=== PATIENT | female | born 1950 | race Caucasian/White ===

== ENCOUNTER 2022-07-10 01:43 | Outpatient (CLI) | payer MEDICARE, SELFPAY ==
[2022-07-10 09:17] LABS: Abs Immature Grans 0.05 10^3/uL (0.0-0.06); Absolute Eosinophil Count 0.23 10^3/uL (0.0-0.7); Absolute Lymphocyte Count 1.05 10^3/uL (1.2-3.4); Absolute Monocyte Count 0.96 10^3/uL (0.1-0.8); Basophils % 0.9; HCT 42.7 % (36.0-46.0); HGB 11.9 g/dL (11.2-15.7); Immature Grans % 0.4; Lymphocytes % 9.2; MCH 21.3 pg (27.0-33.0); MCHC 27.9 % (32.0-36.0); MCV 77 fL (80-95); MPV 8.4 fL (8.0-11.0); Monocytes % 8.4; Neutrophils % 79.1; Platelet Count 286 10^3/uL (130-400); RBC 5.58 10^6/uL (3.93-5.22); RDW 18.6 % (11.7-14.6); RDW-SD 49.9 fL
[2022-07-10 09:18] LABS: Absolute Neutrophil Count 9.02 10^3/uL (1.2-6.7)
[2022-07-10 09:36] LABS: Anisocytosis 2+; Diff Comment RBC Morph Reviewed; Hypochromasia 2+; Microcytosis 1+; Polychromasia Present
[2022-07-10 09:50] LABS: ALT 17 U/L (14-59); AST 21 U/L (15-37); Albumin 3.6 g/dL (3.4-5.0); Alkaline Phosphatase 70 U/L (46-116); Anion Gap 8.8 mmol/L (3-11); BUN 19 mg/dL (7-18); Bilirubin, Total 0.5 mg/dL (0.2-1.0); CO2 27.2 mmol/L (21.0-32.0); Calcium 9.6 mg/dL (8.5-10.1); Chloride 101 mmol/L (98-107); Estimated GFR 60.23 (mL/min/1.73m2); FREE T4 1.44 ng/dL (0.76-1.46); Glucose 98 mg/dL (74-106); Potassium 4.4 mmol/L (3.5-5.1); Sodium 137 mmol/L (136-145); TSH 1.55 uIU/mL (0.36-3.74); Total Protein 7.6 g/dL (6.4-8.2)
== END 2022-07-10 01:44 | disposition home or self-care (01) ==
LOC: LBO 01:43
PROVIDERS: Visit Provider Internal Medicine Hematology & Oncology
DX: Z79.899 Other long term (current) drug therapy (principal)
CPT/HCPCS: 36415; 80053; 84439; 84443; 85025; 86301

== ENCOUNTER 2022-07-17 01:44 | Outpatient (CLI) | payer MEDICARE, SELFPAY ==
[2022-07-17 08:19] LABS: Abs Immature Grans 0.02 10^3/uL (0.0-0.06); Absolute Eosinophil Count 0.11 10^3/uL (0.0-0.7); Absolute Lymphocyte Count 0.92 10^3/uL (1.2-3.4); Absolute Monocyte Count 0.43 10^3/uL (0.1-0.8); Absolute Neutrophil Count 6.08 10^3/uL (1.2-6.7); Basophils % 1.3; Eosinophils % 1.4; HCT 41.5 % (36.0-46.0); HGB 11.8 g/dL (11.2-15.7); Immature Grans % 0.3; MCH 21.4 pg (27.0-33.0); MCHC 28.4 % (32.0-36.0); MCV 75 fL (80-95); Monocytes % 5.6; Neutrophils % 79.4; Platelet Count 219 10^3/uL (130-400); RBC 5.52 10^6/uL (3.93-5.22); RDW 18.6 % (11.7-14.6); RDW-SD 49.2 fL; WBC 7.66 10^3/uL (4.4-10.8)
[2022-07-17 08:41] LABS: ALT 24 U/L (14-59); AST 24 U/L (15-37); Albumin 3.6 g/dL (3.4-5.0); Alkaline Phosphatase 73 U/L (46-116); BUN 26 mg/dL (7-18); Bilirubin, Total 0.4 mg/dL (0.2-1.0); CREATININE 1.2 mg/dL (0.55-1.02); Calcium 9.5 mg/dL (8.5-10.1); Chloride 101 mmol/L (98-107); Estimated GFR 48.39 (mL/min/1.73m2); FREE T4 1.31 ng/dL (0.76-1.46); Glucose 109 mg/dL (74-106); Potassium 4.3 mmol/L (3.5-5.1); Sodium 136 mmol/L (136-145); TSH 2.18 uIU/mL (0.36-3.74); Total Protein 7.5 g/dL (6.4-8.2)
[2022-07-17 10:11] LABS: Iron 31 ug/dL (50-170); Total Iron Binding Capacity 397 ug/dL (250-450); Transferrin Sat 8 % (15-50)
[2022-07-17 10:25] LABS: Ferritin 88 ng/mL (8-252)
[2022-07-20 11:38] LABS: CA 19-9 633 U/mL (<35)
== END 2022-07-17 01:45 | disposition home or self-care (01) ==
LOC: LBO 01:44
PROVIDERS: Nurse Practitioner Adult Health; Visit Provider Internal Medicine Hematology & Oncology
DX: Z79.899 Other long term (current) drug therapy (principal); C22.1 Intrahepatic bile duct carcinoma; D50.9 Iron deficiency anemia, unspecified
CPT/HCPCS: 36415; 80053; 82728; 83540; 83550; 83735; 84439; 84443; 85025; 86301

== ENCOUNTER 2022-07-31 01:45 | Outpatient (CLI) | payer MEDICARE, SELFPAY ==
[2022-07-31 08:42] LABS: Abs Immature Grans 0.04 10^3/uL (0.0-0.06); Absolute Basophil Count 0.06 10^3/uL (0.0-0.2); Absolute Eosinophil Count 0.29 10^3/uL (0.0-0.7); Absolute Lymphocyte Count 0.97 10^3/uL (1.2-3.4); Absolute Monocyte Count 0.92 10^3/uL (0.1-0.8); Absolute Neutrophil Count 3.77 10^3/uL (1.2-6.7); Eosinophils % 4.8; HCT 38.9 % (36.0-46.0); HGB 10.9 g/dL (11.2-15.7); Immature Grans % 0.7; MCH 21.8 pg (27.0-33.0); MCV 78 fL (80-95); MPV 8.8 fL (8.0-11.0); Monocytes % 15.2; Neutrophils % 62.3; RBC 5.01 10^6/uL (3.93-5.22); WBC 6.05 10^3/uL (4.4-10.8)
[2022-07-31 09:11] LABS: ALT 17 U/L (14-59); AST 7 U/L (15-37); Albumin 3.5 g/dL (3.4-5.0); Alkaline Phosphatase 72 U/L (46-116); Anion Gap 6.5 mmol/L (3-11); BUN 26 mg/dL (7-18); Bilirubin, Total 0.3 mg/dL (0.2-1.0); CO2 27.5 mmol/L (21.0-32.0); CREATININE 1.1 mg/dL (0.55-1.02); Calcium 9.4 mg/dL (8.5-10.1); Chloride 104 mmol/L (98-107); Estimated GFR 53.72 (mL/min/1.73m2); FREE T4 1.25 ng/dL (0.76-1.46); Glucose 96 mg/dL (74-106); Potassium 4.8 mmol/L (3.5-5.1); Sodium 138 mmol/L (136-145); TSH 1.48 uIU/mL (0.36-3.74); Total Protein 7.3 g/dL (6.4-8.2)
[2022-07-31 09:16] LABS: Anisocytosis 2+; Diff Comment Diff Reviewed; Platelet Count 340 10^3/uL (130-400)
[2022-07-31 09:42] LABS: Magnesium 1.2 mg/dL (1.8-2.4)
[2022-08-03 13:58] LABS: CA 19-9 1274 U/mL (<35)
== END 2022-07-31 01:46 | disposition home or self-care (01) ==
LOC: LBO 01:45
PROVIDERS: Visit Provider Internal Medicine Hematology & Oncology
DX: Z79.899 Other long term (current) drug therapy (principal); C22.1 Intrahepatic bile duct carcinoma; D50.9 Iron deficiency anemia, unspecified
CPT/HCPCS: 36415; 80053; 83735; 84439; 84443; 85025; 86301

== ENCOUNTER 2022-08-07 02:16 | Outpatient (CLI) | payer MEDICARE, SELFPAY ==
[2022-08-07 09:00] LABS: Abs Immature Grans 0.23 10^3/uL (0.0-0.06); Absolute Basophil Count 0.12 10^3/uL (0.0-0.2); Absolute Eosinophil Count 0.09 10^3/uL (0.0-0.7); Absolute Monocyte Count 0.53 10^3/uL (0.1-0.8); Absolute Neutrophil Count 4.54 10^3/uL (1.2-6.7); Basophils % 1.8; Eosinophils % 1.4; HCT 39.8 % (36.0-46.0); HGB 11.3 g/dL (11.2-15.7); Immature Grans % 3.5; Lymphocytes % 15.4; MCH 22.1 pg (27.0-33.0); MCHC 28.4 % (32.0-36.0); MCV 78 fL (80-95); MPV 8.7 fL (8.0-11.0); Monocytes % 8.1; Neutrophils % 69.8; Platelet Count 410 10^3/uL (130-400); RBC 5.12 10^6/uL (3.93-5.22); RDW 21.3 % (11.7-14.6); RDW-SD 55.5 fL; WBC 6.51 10^3/uL (4.4-10.8)
[2022-08-07 09:28] LABS: ALT 16 U/L (14-59); AST 18 U/L (15-37); Albumin 3.5 g/dL (3.4-5.0); Alkaline Phosphatase 78 U/L (46-116); Anion Gap 7.5 mmol/L (3-11); BUN 28 mg/dL (7-18); Bilirubin, Total 0.3 mg/dL (0.2-1.0); CO2 30.5 mmol/L (21.0-32.0); CREATININE 1.2 mg/dL (0.55-1.02); Calcium 9.7 mg/dL (8.5-10.1); Chloride 104 mmol/L (98-107); Estimated GFR 48.39 (mL/min/1.73m2); FREE T4 1.26 ng/dL (0.76-1.46); Glucose 128 mg/dL (74-106); Potassium 4.9 mmol/L (3.5-5.1); Sodium 142 mmol/L (136-145); TSH 1.59 uIU/mL (0.36-3.74); Total Protein 7.4 g/dL (6.4-8.2)
[2022-08-07 09:42] LABS: Magnesium 1.6 mg/dL (1.8-2.4)
[2022-08-07 09:57] LABS: Iron 43 ug/dL (50-170); Total Iron Binding Capacity 313 ug/dL (250-450); Transferrin Sat 14 % (15-50)
[2022-08-07 10:14] LABS: Ferritin 140 ng/mL (8-252)
[2022-08-10 08:49] LABS: CA 19-9 682 U/mL (<35)
== END 2022-08-07 02:17 | disposition home or self-care (01) ==
LOC: LBO 02:17
PROVIDERS: Visit Provider Internal Medicine Hematology & Oncology
DX: Z79.899 Other long term (current) drug therapy (principal); C22.1 Intrahepatic bile duct carcinoma; D50.9 Iron deficiency anemia, unspecified
CPT/HCPCS: 36415; 80053; 82728; 83540; 83550; 83735; 84439; 84443; 85025; 86301

== ENCOUNTER 2022-08-21 01:32 | Outpatient (CLI) | payer MEDICARE, SELFPAY ==
--- OUTSIDE RECORDS SUMMARY | 2022-08-21 01:34 | XMS_ITS ---
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 Findings are highly suspicious for malignancy. S/P AVR (aortic valve replacement) and aortoplasty and CABG 03/30/2022 Overview: 03/30/22 Class 3 severe obesity in adult 03/30/2022 Pulmonary hypertension 03/30/2022 CAD (coronary artery disease) 03/20/2022 Diabetes mellitus 02/04/2022 Hypertension 02/04/2022 SOB (shortness of breath) 02/04/2022 Bradycardia 02/04/2022 Left atrial dilation 01/29/2022 Aortic stenosis, severe 01/29/2022 Dermatitis 12/10/2011 Current Oncology Plans [facility] ONC GI BILIARY CANCER - (CISplatin 25 MG/M2) / (GEMcitabine 1,000 MG/M2) (Days 1 & 8)Plan Start Date:07/10/2022 Plan Provider:Reddy Hernandez MD Linked Problems CholangiocarcinomaHigh risk medication u seLow magnesium level Treatment Medications Current Day (Day 1, Cycle 3 Next Day ( Day 8, Cycle 3 - - Planned for 08/21/2022) Planned for ) CISplatin (Platinol) in CISplatin (Platinol) 49 mg CISplatin (Platinol) 49 mg sodium chloride 0.9% 250 mL in sodium chloride 0.9% 299 in s odium chloride 0.9% 299 infusiondurvalumab (Imfinzi) mL infusiondurvalumab mL infusi onGEMcitabine 1,970 infusionGEMcitabine (Gemzar) (Imfinzi) 1,500 mg in sodium mg in sodium chloride 0.9% in sodium chloride 0.9% 150 chloride 0.9% 280 mL 301.81 mL i nfusion mL infusion infusionGEMcitabine 1,970 mg in sodium chloride 0.9% 301.81 mL infusion Other Current Plans [facility] HYDRATION / ELECTROLYTES / NAUSEA & VOMITINGPlan Start Date:07/17/2022 Plan Provider:Ramila Beckham APRN Linked Problems Low magnesium level Treatment Medications No medications scheduled. Past Plans No past plan information found. Radiation Treatments No radiation treatments are documented for this patient in [facility]. Treatments may have been administered in another system. Lifetime Dose Tracking Chemical Lifetime Dose Automatic Entry Manual Entry DLP (Dose Length Product) 620 mGy-cm 620 mGy-cm 0 mGy- cm CTDI (CT Dose Index) Min 18.22 mGy 18.22 mGy 0 mGy CTDI (CT Dose Index) Max 18.22 mGy 18.22 mGy 0 mGy Resolved Problems Problem Noted Date Resolved Date Lung nodule 02/04/2022 04/21/2022
--- OUTSIDE RECORDS SUMMARY | 2022-08-21 01:34 | XMS_ITS | Encounter Summary ---
:1950 Author Organization [facility] [place] [address] Care Team Providers Name Role Phone Harshal Godfrey MD Primary Care Provider [phone] Reason for Referral Diagnostic Test (Routine) - Authorized Specialty Diagnoses / Procedures Referred By Contact Refer red To Contact Radiology Diagnoses Adenocarcinoma of unknown primary Nikky Pak APRN Procedures CT Chest Abdomen Pelvis w Contrast (Generic) [address] [place] [address] HEMATOLOGY AND ONGOL [place], [place] [address] Referral ID Status Reason Start Expiration Visits Visits Date Date Requested Authorized [id number] Authorized Specialty 08/07/2022 02/05/2024 1 1 Service Requested Encounter Details Date Type Department Care Team Description 08/07/2022 Office Visit Hematology/Oncology Dameon Hernandez MD [facility] [place] [address] Adenocarcinoma of unknown primary; at [facility] Ramila Beckham APRN [address] [place] [address] [place] [address] Hypom[address] [place] [address] [phone] Social History Tobacco Use Types Packs/Day Years Used Date Smoking Tobacco: Former Cigarettes Quit : 03/23/2012 Smokeless Tobacco: Never Alcohol Use Standard Drinks/Week Comments Yes 0 (1 standard drink = 0.6 oz pure alcoho l) rarely - 4 / year Financial Resource Strain Answer Date Recorded How hard is it for you to pay for the very basics like Not h tamera at all 06/16/2022 food, housing, medical care, and heating? Food Insecurity Answer Date Recorded Within the past 12 months, you worried that your food would Never true 06/16/2022 run out before you got money to buy more. Within the past 12 months, the food you bought just didn't N ever true 06/16/2022 last and you didn't have money to get more. Transportation Needs Answer Date Recorded In the past 12 months, has lack of transportation kept you N o 06/16/2022 from medical appointments or from getting medications? In the past 12 months, has lack of transportation kept you N ot asked from meetings, work, or getting things needed for daily living? Housing Stability Answer Date Recorded In the last 12 months, was there a time when you were not ab le No 06/16/2022 to pay the mortgage or rent on time? In the last 12 months, how many places have you lived? 1 06/16/2022 In the last 12 months, was there a time when you did not hav e a No 06/16/[address] or slept in a intermediate (including now)? Sex Assigned at Date Recorded Not on file documented as of this encounter Last Filed Vital Signs Vital Sign Reading Time Taken Comments Blood Pressure 144/56 08/07/2022 9:10 AM EDT Pulse 94 08/07/2022 9:10 AM EDT Temperature 36.3 ??C (97.3 ??F) 08/07/2022 9:10 AM EDT Respiratory Rate 18 08/07/2022 9:10 AM EDT Oxygen Saturation 96% 08/07/2022 9:10 AM EDT Inhaled Oxygen Concentration - - Weight 93.8 kg (206 lb 12.8 oz) 08/07/2022 9:10 AM EDT Height 147.3 cm (4' 9.99) 08/07/2022 9:10 AM EDT Body Mass Index 43.23 08/07/2022 9:10 AM EDT documented in this encounter Progress Notes Nikky Pak, APPLE PRESS OPERATOR - 08/07/2022 9:30 AM EDT Subjective Patient ID: Marcelle Conner is 72 y.o. Problem List: 1. Carcinoma of unknown primary, presumed cholangiocarcinoma ??A. CT chest 03/23/22 - IMPRESSION Moderate to severe calcifications at the aortic valve level. Prominent calcifications at the aorticarch. Severe coronary artery atherosclerotic calcifications. Bulky calcifications at the mitral annulus. ?? UNEXPECTED FINDING of pathologic enlargement of mediastinal lymph nodes especially in the right paratracheal region, abnormal findings in the right and left liver lobe, as well as numerous very small pulmonary nodules. Findings are highly suspicious for malignancy. B. PET scan 04/21/22 - IMPRESSION 1. There are areas of decreased attenuation in the liver. Mildly increased FDG activity is present in the left lower liver. A nodular contour to the left lobe of liver suggests cirrhosis. Liver malignancy is a consideration. This may be further characterized with MRI. 2. Hypermetabolic lymphadenopathy is present in the mediastinum and gastrohepatic ligament and is concerning for metastases. 3. Hypermetabolic soft tissue containing several foci of air is located at the right sternoclavicular joint. This may be due to recent surgery. Infection may also have this appearance. Please correlate clinically. C. MRI abd 05/15/22 - IMPRESSION 1. Dominant left hepatic lobe mass concerning for malignancy such as cholangiocarcinoma. Additionalhepatic metastases. Abdominal lymphadenopathy. Biopsy is recommended for tissue confirmation. 2. Hepatomegaly without imaging signs of cirrhosis or portal hypertension. ?? D. Upper EUS 05/27/22 -ENDOSONOGRAPHIC FINDINGS: : ?There was no sign of significant endosonographic ?abnormality in the esophagus, stomach, duodenum or ?celiac axis. ?There was no sign of significant endosonographic ?abnormality in the ampulla. Specifically the CBD and ?PD tapered normally to the ampulla. ?There was no sign of significant endosonographic ?abnormality in the common bile duct. The maximum ?diameter of the duct was 3 mm. The pancreas was ?normal in appearance. ?There was a subtle mass in the lateral left lobe of ?the liver that extended to the caudate lobe. It was ?homogenous and had poorly defined borders. It ?measured approximately 6 cm in diameter. Fine needle ?biopsy was performed. Color Doppler imaging was ?utilized prior to needle puncture to confirm a lack ?of significant vascular structures within the needle ?path. Six passes were made with the 22 gauge ?SharkCore biopsy needle using a transgastric ?approach. A visible core of tissue was obtained. A ?preliminary cytologic examination was performed. ?Final cytology results are pending. ?No lymphadenopathy seen. 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 Note: The immunoperoxidase stain results do not specify a primary site. Recommend clinical correlation. Immunostains for MLH1, MSH2, MSH6 and PMS2 (A1) reveal intact nuclear staining in tumor cells. NGS - No Tier I or II variants E. Liver tumor conference - given extent of disease with multifocal liver disease and intra-abdominal adenopathy, this is considered unresectable. Chest finding also considered suspicious for metastatic disease. Mediastinal LN could be biopsied if needed. F. [facility] 06/23/22 - The disease in the liver is considered technically resectable. If the gastrohepatic ligament LN or the adenopathy/lung nodules in the chest is positive for malignancy, then this wouldbe stage IV disease, unresectable. Even if those were not areas of cancer and this were technically resectable, she would be considered at very high risk of disease recurrence. Recommendations: Discuss above with patient, consider referral to Dr Mitchell for consideration of EBUS/bx. Note - Discussed above with Dr. Esqueda. While Dr. Carrillo at [facility] felt the liver lesions were technically resectable, Dr. Esqueda disagreed and felt they were unresectable. He also noted that in pts with multiple other liver lesions, the prognosis/outcome with surgery is generally very poor and his recommendation was for systemic therapy. There was general agreement with an approach of systemic therapy with gemcitabine/cisplatin and durvalumab. G. CT c/a/p 06/29/22 Chest - Impression: Bulky mediastinal adenopathy with interval increased size of some of the lymph nodes concerning fordisease progression. Abd/plevis - Impression: 1. Interval increased size of upper abdominal lymphadenopathy concerning for disease progression. 2. Redemonstrated peritoneal implants throughout the abdomen, similar to prior 3. Mild wall thickening of the sigmoid colon most consistent with chronic inflammatory changes in the setting of colonic diverticulosis, although malignancy is not excluded 4. Large rectal stool ball which could reflect impaction H. 07/10/22 - Began therapy with gemcitabine/cisplatin/durvalumab 2. Severe aortic stenosis??and coronary artery disease?? 03/30/22 - Aortic valve replacement and Coronary artery bypass grafting x??2??(PLUNKETT to??LAD, RSVG to??OM1)?? 3. Pulmonary HTN 4. DM 5. HTN 6. Hyperlipidemia 7. S/p APOLINAR/BSO 35-40 years ago 8. S/o cholecystectomy 9. S/p appendectomy 10. S/p partial colectomy, due to an incarcerated hernia HPI Marcelle Conner is seen for evaluation and management of adenocarcinoma of unknown primary. The history is summarized above. Marcelle is by herself in clinic today. She continues to feeling generally well overall. Slightly more fatigued this week. Sleeping okay. She is eating well and her weight is stable. Her appetite is low during chemo weeks, but she forces herself to eat so she can take her meds. No diarrhea. She has some constipation which she attributes to taking oral iron. Going to try colace. Saw Dr. Rubalcava this week and is doing well from cardiology standpoint per patient report. Soc Hx: Lives in [place], [place] with an adult special needs daughter who helps her around the house.Another daughter lives close by. 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 Negative for chills and fever. HENT: Negative. Respiratory: Negative. Cardiovascular: Negative. Gastrointestinal: Positive for constipation. Musculoskeletal: Negative. Skin: Negative. Neurological: Negative. Psychiatric/Behavioral: Negative. Objective Physical Exam Vitals reviewed. Constitutional: General: She is not in acute distress. HENT: Head: Normocephalic and atraumatic. Mouth/Throat: Pharynx: Oropharynx is clear. No oropharyngeal exudate. Eyes: General: No scleral icterus. Cardiovascular: Rate and Rhythm: Normal rate and regular rhythm. Heart sounds: Normal heart sounds. Pulmonary: Effort: Pulmonary effort is normal. No respiratory distress. Breath sounds: No wheezing or rales. Chest: Breasts: Right: No supraclavicular adenopathy. Left: No supraclavicular adenopathy. Abdominal: General: There is no distension. Palpations: There is no mass. Tenderness: There is no abdominal tenderness. There is no guarding. Musculoskeletal: General: No swelling. Lymphadenopathy: Cervical: No cervical adenopathy. Upper Body: Right upper body: No supraclavicular adenopathy. Left upper body: No supraclavicular adenopathy. Skin: General: Skin is warm and dry. Findings: No rash. Neurological: General: No focal deficit present. Mental Status: She is alert. Coordination: Coordination normal. Psychiatric: Mood and Affect: Mood normal. Behavior: Behavior normal. BP 144/56 (Patient Position: Sitting) Pulse 94 Temp 36.3 ??C (97.3 ??F) (Temporal) Resp 18 Ht 147.3 cm (4' 9.99) Wt 93.8 kg (206 lb 12.8 oz) SpO2 96% BMI 43.23 kg/m?? Labs: WBC/ANC - 6., Hgb/Hct - 11.3/39.8, Plts - 410,000. BUN/Cr - 28/1.2. Mg - 1.6 . Lytes and LFTs o/w unremarkable Tsh - 1.59, FT4 - 1.26. Fe: 43 (up from 31) Transferritin: 14 (up from 8) Ferritin: 140 CA 19-9 08/07/22 pending 07/31/22 1274 07/17/22 633 06/16/22 843 AFP 06/16/22 2.1 Assessment and Plan Marcelle Conner is 72 yo, seen for evaluation and management of adenocarcinoma of unknown primary. Marcelle has a PMHx including severe aortic stenosis and CABG for which she underwent AVR and CABG in 03/25.. As part of that evaluation, a CT chest was done on 03/23/22. This showed pathologic enlargement of mediastinal lymph nodes especially in the right paratracheal region, abnormal findings in the rightand left liver lobe, as well as numerous very small pulmonary nodules. Findings are highly suspicious for malignancy. A PET scan was done on 04/21/22 and showed hypermetabolic mediastinal and gastrohepatic ligament lymphadenopathy. The lung nodules were not hypermetabolic but may below size for detection on the PET scan. In the liver, there was mildly increased uptake in the left lobe and areas of decreased attenuation in the right lobe. An MRI liver was done on 05/15/22 and showed a dominant left hepatic lobe mass concerning for malignancy such as cholangiocarcinoma and additional hepatic metastases. There was abdominal lymphadenopathy. Hepatomegaly was seen without imaging signs of cirrhosis or portal hypertension. On 05/27/22 an upper EUS was done with biopsy of the left lobe lever lesion. The pathology from this shows poorly differentiated adenocarcinoma with clear cell features. The primary site is not clear. Clear cell variants of cholangiocarcinoma are rare although reported.More commonly, ovarian cancer or renal cell carcinoma may have clear cell histology. She had an oophorectomy many years ago. The MRI showed renal cysts and no enhancing masses in the kidneys. Another possibility is a clear cell variant of HCC. Her case was discussed at [facility] 06/16/22. Given the extent of disease in the liver and the intra-abdominal adenopathy, this is not considered resectable. Given that she is asymptomatic, liver directed therapies were not recommended. It was recommended that we check an AFP. The AFP was WNL but the CA 19-9 was significantly elevated. When I discussed the advanced nature of the cancer with the patient and her daughter, this came as ashock to them as they were under the impression that this was contained and resectable. This was quite upsetting for her. Again, based on [facility] discussion today, this is not felt to be the case. I willsee what the opinion is at [facility]. I did speak with Dr. Mitchell about the lung findings. Given the pathology result, the likelihood is that the findings in the chest are related to the underlying malignancy. If it is felt that it would business change manager, ie make the difference between resectable vs unresectable disease, he would be willing to biopsy the LN via EBUS. Discussed at [facility] and with Dr. Esqueda on 06/23/22 - While Dr. Carrillo at [facility] felt the liver lesions were technically resectable, Dr. Esqueda disagreed and felt they were unresectable. He also noted that in pts with multiple other liver lesions, the prognosis/out come with surgery is generally poor and his recommendation was for systemic therapy. There was general agreement with an approach of systemic therapy with gemcitabine/cisplatin and durvalumab. This was discussed with Marcelle. A repeat CT was done on 06/29/22. This was read as showing stable liver lesions (compared with the MRI in May) and peritoneal implants, increased upper abdominal and thoracic adenopathy. She had a second opinion at [facility]. She was seen on 07/23/[address] Pizano. He agreed with thesystemic therapy with gemcitabine/cisplatin and durvalumab. Given the liver dominant disease, he discussed possible benefit from a liver directed approach such as Y90 radioembolization. He mentioned NGS testing which has already been done and shows no Tier I or II variants. On 07/10/22 she began therapy with gemictabine, cisplatin, durvalumab and has received one cycle. Sharonhas tolerated this well. We talked about whether to give IV iron, her iron numbers are slowly improving with oral supplementation. For now, she will continue the oral iron and we will recheck the iron studies when she returns in 2 weeks. We will also supplement her magnesium with 2gm IV today, in addition to her oral supplementation at home. We did discuss her rising tumor marker. I do not have today's value yet, but in light of her overallpositive clinical presentation, we will keep the plan to restage after C3, and she is in agreement. If she begins to feel poorly, we can reconsider this. We will proceed with cycle 2 day 8 today, and plan to see her in 2 weeks for the start of C3. We will plan a restaging CT after cycle 3, sooner if clinically indicated. Nikky Pak APRN documented in this encounter Plan of Treatment Upcoming Encounters Date Type Specialty Care Team Description 08/21/2022 Scheduled View Only Hematology and Dameon Hernandez MD [facility] [address] On[address] Nikky Pak[address] HEMATOLOGY AND [place], [place] [id number] 08/21/2022 TH Visit (TeleHealth) Hematology and Reddy Hernandez Oncology [facility] [address] [place] [address] (Wo rk) 08/21/2022 Infusion Hematology and Oncology 08/28/2022 Office Visit Hematology and Reddy Hernandez Oncology [facility] [place], [place] [address] (Wo rk) 08/28/2022 Infusion Hematology and Oncology 09/11/2022 Office Visit Hematology and Reddy Hernandez MD [facility] [place] [address] On[address] Pak[address] HEMATOLOGY AND [place], [place] [id number] 09/11/2022 Infusion Hematology and Oncology 09/18/2022 Office Visit Hematology and Nikky Pak, Oncology [address] HEMATOLOGY AND [place], [place] [id number] (Wo rk) 09/18/2022 Infusion Hematology and Oncology 03/10/2023 Office Visit Cardiology Ofelia Rubalcava MD [facility] [address] [place] [address] (Wo rk) Scheduled Orders Name Type Priority Associated Diagnoses Order S chedule CT Chest Abdomen Imaging Routine Adenocarcinoma of unknow n Expected: 09/04/2022 Pelvis w Contrast primary (Approxima te), (Generic) Expires: 2022 documented as of this encounter Visit Diagnoses Diagnosis Adenocarcinoma of unknown primary Other malignant neoplasm without specifi cation of site Hypomagnesemia Disorders of magnesium metabolism Colon cancer metastasized to liver Malignant neoplasm of colon, unspecified site documented in this encounter Care Teams Section Forest Fire Warden Relationship Specialty Start Date End Date Harshal Godfrey MD PCP - General Family Medicine 02/18/22 [address] [place] [address] documented as of this encounter
--- OUTSIDE RECORDS SUMMARY | 2022-08-21 01:34 | XMS_ITS | Encounter Summary ---
:1950 Author Organization [facility] [place] [address] Care Team Providers Name Role Phone Harshal Godfrey MD Primary Care Provider [phone] Encounter Details Date Type Department Care Team Description 07/31/2022 Travel Social History Tobacco Use Types Packs/Day Years [...] place to sleep or slept in a care home (including now)? Sex Assigned at Date Recorded Not on file documented as of this encounter Plan of Treatment Upcoming Encounters Date Type Specialty Care Team Description 08/21/2022 Scheduled View Only Dameon Thompson MD [facility] [place] [address] On[address] Pak[address] HEMATOLOGY AND [place], [place] [phone] 08/21/2022 TH Visit (TeleHealth) Hematology and Reddy Hernandez Oncology [facility] [address] [place], [place] [address] (Wo rk) 08/21/2022 Infusion Hematology and Oncology 08/28/2022 Office Visit Hematology and Reddy Hernandez Oncology [facility] [address] [place] [address] (Wo rk) 08/28/2022 Infusion Hematology and Oncology 09/11/2022 Office Visit Sharon and Reddy Hernandez MD [facility] [place] [address] Oncology Nikky Pak[address] HEMATOLOGY AND [place], [place] [address] 09/11/2022 Infusion Hematology and Oncology 09/18/2022 Office Visit Hematology and Nikky Pak Oncology [address] HEMATOLOGY AND [place], [place] [id number] (Wo rk) 09/18/2022 Infusion Hematology and Oncology 03/10/2023 Office Visit Cardiology Ofelia Rubalcava MD [facility] [address] [place] [address] (Wo rk) documented as of this encounter Visit Diagnoses Not on filedocumented in this encounter Care Teams Transmitter Engineer Relationship Specialty Start Date End Date Harshal Godfrey MD PCP - General Family Medicine 02/18/22 [address] [place] [address] documented as of this encounter
--- OUTSIDE RECORDS SUMMARY | 2022-08-21 01:34 | XMS_ITS | Encounter Summary ---
:1950 Author Organization [facility] [place] [address] Care Team Providers Name Role Phone Harshal Godfrey MD Primary Care Provider [phone] Encounter Details Date Type Department Care Team Description 07/17/2022 Office Visit Hematology/Oncology Dameon Hernandez MD [facility] [place] [address] [facility]; [facility] [address] [place] [address] [place] [address] Microcytic anemia [address] [place] [phone] Social History Tobacco Use Types Packs/Day Years [...] place to sleep or slept in a skilled nursing (including now)? Sex Assigned at Date Recorded Not on file documented as of this encounter Last Filed Vital Signs Vital Sign Reading Time Taken Comments Blood Pressure 112/51 07/17/2022 8:43 AM EDT Pulse 89 07/17/2022 8:43 AM EDT Temperature 36.2 ??C (97.1 ??F) 07/17/2022 8:43 AM EDT Respiratory Rate 18 07/17/2022 8:43 AM EDT Oxygen Saturation 93% 07/17/2022 8:43 AM EDT Inhaled Oxygen Concentration - - Weight 94.3 kg (208 lb) 07/17/2022 8:43 AM EDT Height 147.3 cm (4' 9.99) 07/17/2022 8:43 AM EDT Body Mass Index 43.49 07/17/2022 8:43 AM EDT documented in this encounter Progress Notes Ramila Beckham, SUPERINTENDENT OPERATING - 07/17/2022 9:00 AM EDT Subjective Marcelle returns to clinic to continue treatment for biliary cancer. Patient ID: Marcelle Conner is 72 y.o. [...] rectal stool ball which could reflect impaction 2. Severe aortic stenosis??and coronary artery disease?? [...] unknown primary. The history is summarized above. INTERVAL HISTORY(07/17/22) Marcelle returns today for follow up of biliary cancer and to continue chemotherapy with Cisplatin/Gemcitabine/Durvalumab. She is by herself today. Overall doing very well. She tolerated D1 of treatment well. She denies any side effects. No fevers, chills or signs of infection. She has been eating and drinking well. No mucositis. Denies any cough, shortness of breath or chest pain. No nausea, vomiting, constipation or diarrhea. She has intermittent bowel issues secondary to a colectomy in the past but she has not deviated from her normal pattern. She denies fatigue- I actually had a burst of energy after the treatment and felt better than I had. She denies any blood in stool, tarry stools, BRBPR or lightheadedness/dizziness. She denies any bleeding. Denies any pain. No rash or skin issues. No other focal complaints today. 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 Objective Physical Exam Vitals reviewed. Constitutional: General: She is not in acute distress. HENT: Head: Normocephalic and atraumatic. Mouth/Throat: Pharynx: Oropharynx is clear. No oropharyngeal exudate. Eyes: General: No scleral icterus. Conjunctiva/sclera: Conjunctivae normal. Cardiovascular: Rate and Rhythm: Normal rate and regular rhythm. Pulmonary: Effort: Pulmonary effort is normal. No respiratory distress. Breath sounds: No wheezing or rales. Chest: Breasts: Right: No supraclavicular adenopathy. Left: No supraclavicular adenopathy. Abdominal: General: Bowel sounds are normal. There is no distension. Palpations: Abdomen is soft. There is no mass. Tenderness: There is no abdominal tenderness. There is no guarding. Comments: Mid line abdominal scar Musculoskeletal: General: No swelling. Right lower leg: Edema present. Left lower leg: Edema present. Comments: Trace bilateral lower extremity edema Lymphadenopathy: Cervical: No cervical adenopathy. Upper Body: Right upper body: No supraclavicular adenopathy. Left upper body: No supraclavicular adenopathy. Skin: General: Skin is warm and dry. Coloration: Skin is not jaundiced. Findings: No rash. Neurological: General: No focal deficit present. Mental Status: She is alert. Coordination: Coordination normal. Psychiatric: Mood and Affect: Mood normal. Behavior: Behavior normal. BP 112/51 (Patient Position: Sitting) Pulse 89 Temp 36.2 ??C (97.1 ??F) (Tympanic) Resp 18 Ht 147.3 cm (4' 9.99) Wt 94.3 kg (208 lb) SpO2 93% BMI 43.49 kg/m?? Labs: 07/17/22- WBC-7.66 Hgb/Hct-11.8/41.5 MCV-75 Plt-219 ANC-6.08 Na-136 K+-4.3 BUN/cr-26/1.2 Glucose-109 Ca-9.5 T. Bili-0.4 AST-24 ALT-24 Alk phos-73 Albumin-3.6 TSH-2.18 FT4-1.31 WBC/ANC - 11.01/9020, Hgb/Hct - 11.9/42.7, Plts - 286,000. BUN/Cr - 19/1.0. Lytes and LFTs unremarkable Tsh - 1.55, FT4 - 1.44. CA 19-9 07/17/22 pending 06/16/22 843 AFP 06/16/22 2.1 Assessment and [...] quite upsetting for her. Again, based on LT discussion today, this is not felt to be the case. I willsee what the opinion is at [facility]. I did speak with Dr. Mitchell about the lung findings. Given the pathology result, the likelihood is that the findings in the chest are related to the underlying malignancy. If it is felt that it would policy change clerk, ie make the difference between resectable vs unresectable disease, he would be willing to biopsy the LN via EBUS. Discussed at [facility] and with Dr. Esqueda on 06/23/22 - [...] implants, increased upper abdominal and thoracic adenopathy. 07/17/22- Marcelle is here for C1D8 Cisplatin/Gemcitabine/Durvalumab. She tolerated D1 well. No side effects from treatment. She feels well. # Microcytic anemia- Hgb-11.8 MCV-75. Will check Ferritin and iron levels. # Creatinine- Cr increased from 1.0 to 1.2- will monitor. She will be seen at [facility] on 07/23 for second opinion. She is planning a second opinion at [facility]. This is scheduled for 07/23/22. Marcelle spoke with them and their suggestion was to go ahead and get treatment started. We will see Marcelle back in 2 weeks for C2 D1 Cisplatin/Gemcitabine/Durvalumab with CBC,CMP, Mg, TSH, FT4and CA 19-9. Iron studies and Ferritin are pending. Marcelle voiced understanding of the plan and was given an opportunity to ask questions which I answeredto the best of my ability. Marcelle understands she can call the clinic between visits with any questions/concerns or new symptoms. Ramila Beckham MSN, SUPERINTENDENT OPERATING, AOCNP Medical Oncology documented in this encounter Miscellaneous Notes Addendum Note - Ramila Beckham APRN - 07/17/2022 9:00 AM EDT Addended by: RAMILA BECKHAM on: 07/17/2022 10:50 AM Modules accepted: Orders documented in this encounter Plan of Treatment Upcoming Encounters Date Type Specialty Care Team Description 08/21/2022 Scheduled View Only Hematology and Dameon Hernandez MD [facility] [place] [address] [address] HEMATOLOGY AND [place], [place] [phone] 08/21/2022 TH Visit (TeleHealth) Hematology and Reddy Hernandez Oncology [facility] [address] [place], [place] [address] (Wo rk) 08/21/2022 Infusion Hematology and Oncology 08/28/2022 Office Visit Hematology and Reddy Hernandez Oncology [facility] [address] [place] [address] (Wo rk) 08/28/2022 Infusion Hematology and Oncology 09/11/2022 Office Visit Hematology and Reddy Hernandez MD [facility] [place] [address] [address] HEMATOLOGY AND [place], [place] [phone] 09/11/2022 Infusion Hematology and Oncology 09/18/2022 Office Visit Hematology and Nikky Pak, Oncology [address] HEMATOLOGY AND [place], [place] [phone] (Wo rk) 09/18/2022 Infusion Hematology and Oncology 03/10/2023 Office Visit Cardiology Ofelia Rubalcava MD [facility] [address] [place] [address] (Wo rk) Scheduled Orders Name Type Priority Associated Diagnoses Order S chedule Magnesium Lab Routine Cholangiocarcino ma Once a week for 20 Microcytic anemia Occurrence s starting 07/17/2022 unti l 07/17/2023 Ferritin Lab Routine Cholangiocarcino ma Expected: 07/17/2022, Microcytic anemia Expires: 1 11/17/2021 Iron and TIBC Lab Routine Cholangiocarcino ma Expected: 07/17/2022, Microcytic anemia Expires: 1 11/17/2021 documented as of this encounter Visit Diagnoses Diagnosis 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
--- OUTSIDE RECORDS SUMMARY | 2022-08-21 01:34 | XMS_ITS | Encounter Summary ---
:1950 Author Organization [facility] [place] [address] Care Team Providers Name Role Phone Harshal Godfrey MD Primary Care Provider [phone] Encounter Details Date Type Department Care Team Description 07/17/2022 Orders Only [facility]ology[facility]On[facility] at [facility], Cholangiocarcinoma; [facility] HUMAN RESOURCES ADMIN Microcytic anemia [address] [place], [place] MEDICAL [place]OG [place] [address] [place], [place] [phone] (Wo rk) Social History Tobacco Use Types Packs/Day Years [...] place to sleep or slept in a [place] health care facility (including now)? Sex Assigned at Date Recorded Not on file documented as of this encounter Plan of Treatment Upcoming Encounters Date Type Specialty Care Team Description 08/21/2022 Scheduled View Only Hematology and Dameon Hernandez MD [facility] [place] [address] On[address] HEMATOLOGY AND [place], [place] [phone] 08/21/2022 TH Visit (TeleHealth) Hematology and Reddy Hernandez Oncology [facility] [address] [place], [place] [address] (Wo rk) 08/21/2022 Infusion Hematology and Oncology 08/28/2022 Office Visit Hematology Reddy Young Oncology [facility] [address] [place], [place] [address] (Wo rk) 08/28/2022 Infusion Hematology and Oncology 09/11/2022 Office Visit Reddy Thompson MD [facility] [place] [address] Oncology [address] [place] AND [place], [place] [phone] 09/11/2022 Infusion Hematology and Oncology 09/18/2022 Office Visit Hematology and Nikky Pak, Oncology [address] [place] AND [place], [place] [address] (Wo rk) 09/18/2022 Infusion Hematology and Oncology 03/10/2023 Office Visit Cardiology Ofelia Rubalcava MD 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
--- OUTSIDE RECORDS SUMMARY | 2022-08-21 01:34 | XMS_ITS | Encounter Summary ---
:1950 Author Organization [facility] [place] [address] Care Team Providers Name Role Phone Harshal Godfrey MD Primary Care Provider [phone] Reason for Visit Reason Comments Chemotherapy Cycle 2, Day 1 Treatment/Therapy Plan Authorization (Routine) - Authorized Specialty Diagnoses / Procedures Referred By Contact Refer red To Contact Diagnoses Cholangiocarcinoma High risk medication use Low magnesium level Reddy Hernandez MD [facility] Hem Onc Infusion Procedures INFUSION [facility] [address] [facility] [place] [phone] Fax: Referral ID Status Reason Start Date Expiration Date Visits V isits Requested Authorized [id number] Authorized 06/30/2022 06/30/2023 99 99 Encounter Details Date Type Department Care Team Description 07/31/2022 Infusion Hematology Oncology at [facility] magnesium level; [facility] High risk medication use; [address] [facility] Cholangiocarcinoma [place], [place] [phone] Social History Tobacco Use Types Packs/Day Years [...] place to sleep or slept in a residential (including now)? Sex Assigned at Date Recorded Not on file documented as of this encounter Progress Notes Victorino Miner RN - 07/31/2022 10:00 AM EDT INFUSION THERAPY ADMINISTRATION NOTES DIAGNOSIS: Cholangiocarcinoma CYCLE #1: Day 1 REASON FOR VISIT: Durvalumab, Gemcitabine, Cisplatin + IV MAG SUBJECTIVE March offers no complaints. She met with Dr. Hernandez prior to infusion, ready for treatment. OBJECTIVE LAB DATA: Done today at [facility], reviewed and adequate for treatment. Pt will get 2 gm mag for 1.2 today. IV ACCESS: Right PIV top of hand #22 BLOOD RETURN: yes ANY S/S OF INFECTION/EXTRAVASATIONS: none IV FLUSHED WITH: NS IV DISCONTINUED: yes Pre administration: Chemotherapy orders independently verified for drug name, route, and dosage per patient's height, weight and BSA by Victorino Miner RN and on-site pharmacist REACTIONS (DESCRIPTION, TIME, INTERVENTION AND EFFECTIVENESS) none ASSESSMENT Marcelle was awake, alert and he tolerated treatment well. PLAN Return to clinic next Wednesday for day 8. documented in this encounter Plan of Treatment Upcoming Encounters Date Type Specialty Care Team Description 08/21/2022 Scheduled View Only Hematology and Dameon Hernandez MD [facility] [place] [address] HEMATOLOGY AND [place], [place] [phone] 08/21/2022 TH Visit (TeleHealth) Hematology and Reddy Hernandez , Oncology [facility] [place]OG[place] [address] (Wo rk) 08/21/2022 Infusion Hematology and Oncology 08/28/2022 Office Visit Hematology and Reddy Hernandez Oncology [facility] [address] [place], [place] [address] (Wo rk) 08/28/2022 Infusion Hematology and Oncology 09/11/2022 Office Visit Hematology and Reddy Hernandez MD [facility] [place] [place] [address] [address] HEMATOLOGY AND [place], [place] [phone] 09/11/2022 Infusion Hematology and Oncology 09/18/2022 Office Visit Hematology and Nikky Pak, Oncology [address] HEMATOLOGY AND [place], [place] [phone] (Wo rk) 09/18/2022 Infusion Hematology and Oncology 03/10/2023 Office Visit Cardiology Ofelia Rubalcava MD [facility] [address] [place] [address] (Wo rk) documented as of this encounter Visit Diagnoses Diagnosis Low magnesium level High risk medication use Encounter for long-term (current) use of other medications 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 Administer prior to chemotherapy., Routine CISplatin (Platinol) 49 mg in New Bag 07/31/2022 12:48 PM EDT 49 m g 299 mL/hr sodium chloride 0.9% 299 mL infusion 49 mg (rounded from 49.25 mg = 25 mg/m2/dose ? 1.97 m2 Treatment Plan BSA from Recorded weight), Intravenous, ONCE, 1 dose, On Wed07/31/22 at 1115, Administer over 60 Minutes dexAMETHasone (Decadron) tablet 10 mg Given 07/31/2022 10:21 AM EDT 10 mg 10 mg, Oral, ONCE, 1 dose, On Wed07/31/22 at 1015, Administer prior to chemotherapy, Routine durvalumab (Imfinzi) 1,500 mg in New Bag 07/31/2022 10:34 AM E DT 1,500 mg 280 mL/hr sodium chloride 0.9% 280 mL infusion 1,500 mg, Intravenous, ONCE, 1 dose, On Wed07/31/22 at 1015, Administer over 60 Minutes, This agent is restricted to outpatient use. Is this drug being given as an outpatient? Yes GEMcitabine 2,000 mg in sodium New Bag 07/31/2022 11:47 AM EDT 2,000 mg 605.2 mL/hr chloride 0.9% 302.6 mL infusion 2,000 mg, Intravenous, ONCE, 1 dose, On Wed07/31/22 at 1115, Administer over 30 Minutes, Dose Ordered = 1970 mg (1000 mg/m2). Pharmacist rounded dose per procedure. Warning Vesicant/Irritant Medication magnesium sulfate 1 g in dextrose 5% New Bag 07/31/2022 12:53 PM EDT 1 g 200 mL/hr 100 mL infusion 2 g, Intravenous, ONCE, 1 dose, On Wed07/31/22 at 1015, Administer over 60 Minutes New Bag 07/31/2022 11:52 AM EDT 1 g 200 mL/hr palonosetron (Aloxi) (0.05 mg/mL) injection Given 07/05 10:21 AM EDT 0.25 mg 0.25 mg 0.25 mg, Intravenous, ONCE, 1 dose, On Wed07/31/22 at 1015, Administer over 30 seconds., Routine sodium chloride 0.9% infusion New Bag 07/31/2022 10:10 AM EDT 1,000 mLs 500 mL/hr 1,000 mL, at 500 mL/hr, Intravenous, CONTINUOUS, Starting on Wed07/31/22 at 1015, Until Wed07/31/22 at 1214, Pre CISplatin documented in this encounter Care Teams Rn Managed Care Relationship Specialty Start Date End Date Harshal Godfrey MD PCP - General Family Medicine 02/18/22 [address] [place] [address] documented as of this encounter
--- OUTSIDE RECORDS SUMMARY | 2022-08-21 01:34 | XMS_ITS | Encounter Summary ---
:1950 Author Organization [facility] [place] [address] Care Team Providers Name Role Phone Harshal Godfrey MD Primary Care Provider [phone] Reason for Visit Reason Onset Date Comments Follow-up 07/13/2022 Encounter Details Date Type Department Care Team Description 07/13/2022 [facility] [address] [phone] Social History Tobacco Use Types [...] place to sleep or slept in a long-term (including now)? Sex Assigned at Date Recorded Not on file documented as of this encounter Miscellaneous Notes Telephone Encounter - Catherine Salgado RN - 07/13/2022 2:30 PM EDT Left message for March to return my call to see how she is doing after first chemo of ciplatin, gemcitabine and durvalumab on 07/10/22. Pt called back and stated she feels great. Had a wonderful weekend. No fever, no chills, no nausea or vomiting, no shortness of breath. She knows to call with any questions or concerns. documented in this encounter Plan of Treatment Upcoming Encounters Date Type Specialty Care Team Description 08/21/2022 Scheduled View Only Hematology and Dameon Hernandez MD [facility] [place] [address] [address] [place] [address] 08/21/2022 TH Visit (TeleHealth) Hematology and Reddy Hernandez Oncology [facility] [address] [place], [place] [address] (Wo rk) 08/21/2022 Infusion Hematology and Oncology 08/28/2022 Office Visit Hematology Reddy Young Oncology [facility] [address] [place], [place] [address] (Wo leslee) 08/28/2022 Infusion Hematology and Oncology 09/11/2022 Office Visit Hematology and Reddy Hernandez MD [facility] [place] [address] [address] HEMATOLOGY AND [place], [place] [phone] 09/11/2022 Infusion Hematology and Oncology 09/18/2022 Office Visit Hematology and Nikky Pak, Oncology [address] HEMATOLOGY AND [place], [place] [phone] (Wo rk) 09/18/2022 Infusion Hematology and Oncology 03/10/2023 Office Visit Cardiology Ofelia Rubalcava MD [facility] [address] [place], [place] [address] (Wo rk) documented as of this encounter Visit Diagnoses Not on filedocumented in this encounter Care Teams Lye Treater Relationship Specialty Start Date End Date Harshal Godfrey MD PCP - General Family Medicine 02/18/[address] [facility] [place], [place] [phone] documented as of this encounter
--- OUTSIDE RECORDS SUMMARY | 2022-08-21 01:34 | XMS_ITS | Encounter Summary ---
:1950 Author Organization [facility] [place] [address] Care Team Providers Name Role Phone Harshal Godfrey MD Primary Care Provider [phone] Reason for Visit Reason Comments Chemotherapy C2D8 Gemcitabine, Cisplatin Treatment/Therapy Plan Authorization (Routine) - Authorized Specialty Diagnoses / Procedures Referred By Contact Refer red To Contact Diagnoses Cholangiocarcinoma High risk medication use Low magnesium level Reddy Hernandez MD [facility] Hem Onc Infusion Procedures INFUSION [address] [place] [phone] Fax: Referral ID Status Reason Start Date Expiration Date Visits V isits Requested Authorized [id number] Authorized 06/30/2022 06/30/2023 99 99 Encounter Details Date Type Department Care Team Description 08/07/2022 Infusion Hematology Oncology at [facility] magnesium level; [facility] High risk medication use; [address] [place] [address] Cholangiocarcinoma; [place], [place] [phone] Hypomagnesemia [phone] Social History Tobacco Use Types Packs/Day Years [...] documented as of this encounter Progress Notes Yesika Hughes RN - 08/07/2022 10:00 AM EDT INFUSION THERAPY ADMINISTRATION NOTES DIAGNOSIS: Cholangiocarcinoma CYCLE #2: Day 8 REASON FOR VISIT: Gemcitabine, Cisplatin + IV MAG SUBJECTIVE March offers no complaints. She met with Nikky Pak APRN prior to infusion, ready for treatment. OBJECTIVE LAB DATA: Done today at [facility], reviewed and adequate for treatment. . IV ACCESS: Left PIV top of hand #22 BLOOD RETURN: yes ANY S/S OF INFECTION/EXTRAVASATIONS: none IV FLUSHED WITH: NS IV DISCONTINUED: yes Pre administration: Chemotherapy orders independently verified for drug name, route, and dosage per patient's height, weight and BSA by Yesika Hughes, KALIE and on-site pharmacist REACTIONS (DESCRIPTION, TIME, INTERVENTION AND EFFECTIVENESS) none ASSESSMENT Marcelle was awake, alert and he tolerated treatment well. PLAN Return to clinic per plan.. documented in this encounter Plan of Treatment Upcoming Encounters Date Type Specialty Care Team Description 08/21/2022 Scheduled View Only Hematology and Dameon Hernandez MD [facility] [place] [address] Oncology [address] HEMATOLOGY AND [place], [place] [phone] 08/21/2022 TH Visit (TeleHealth) Hematology and Reddy Hernandez Oncology [facility] [place], [place] [address] (Wo rk) 08/21/2022 Infusion Hematology and Oncology 08/28/2022 Office Visit Hematology and Reddy Hernandez Oncology [facility] [address] [place], [place] [address] (Wo rk) 08/28/2022 Infusion Hematology and Oncology 09/11/2022 Office Visit Hematology and Reddy Hernandez MD [facility] [address] Oncology [address] HEMATOLOGY AND [place], [place] [phone] 09/11/2022 Infusion Hematology and Oncology 09/18/2022 Office Visit Hematology and Nikky Pak, Oncology [address] HEMATOLOGY AND [place], [place] [phone] (Wo rk) 09/18/2022 Infusion Hematology and Oncology 03/10/2023 Office Visit Cardiology Ofelia Rubalcava MD [facility] [address] [place] [address] (Wo rk) documented as of this encounter Visit Diagnoses Diagnosis Low magnesium level High risk medication use Encounter for long-term (current) use of other medications Cholangiocarcinoma Malignant neoplasm of intrahepatic bile ducts Hypomagnesemia Disorders of magnesium metabolism Colon cancer metastasized to liver Malignant neoplasm of colon, unspecified site documented in this encounter Administered Medications Inactive Administered Medications - up to 3 most recent administrations Medication Order MAR Action Action Date Dose Rate Site aprepitant (CINVANTI) injection Given 08/07/2022 10:28 AM EDT 13 0 mg Emul 130 mg 130 mg, Intravenous, ONCE, 1 dose, On Wed08/07/22 at 1000, Alternative administration of IV push over 2 minutes is a recommendation from the liner reroll tender. Administer prior to chemotherapy., Routine CISplatin (Platinol) 49 mg in New Bag 08/07/2022 12:26 PM EDT 49 m g 299 mL/hr sodium chloride 0.9% 299 mL infusion 49 mg (rounded from 49.25 mg = 25 mg/m2/dose ? 1.97 m2 Treatment Plan BSA from Recorded weight), Intravenous, ONCE, 1 dose, On Wed08/07/22 at 1100, Administer over 60 Minutes dexAMETHasone (Decadron) tablet 10 mg Given 08/07/2022 10:19 AM EDT 10 mg 10 mg, Oral, ONCE, 1 dose, On Wed08/07/22 at 1000, Administer prior to chemotherapy, Routine GEMcitabine 2,000 mg in sodium New Bag 08/07/2022 11:22 AM EDT 2,000 mg 605.2 mL/hr chloride 0.9% 302.6 mL infusion 2,000 mg, Intravenous, ONCE, 1 dose, On Wed08/07/22 at 1100, Administer over 30 Minutes, Warning Vesicant/Irritant Medication Dose Ordered = 1970 mg (1000 mg/m2). Pharmacist rounded dose per procedure. magnesium sulfate 2 g in sterile water New Bag 08/07/2022 12:0 4 PM EDT 2 g 25 mL/hr 50 mL infusion 2 g, Intravenous, ONCE, 1 dose, On Wed08/07/22 at 1100, Administer over 120 Minutes palonosetron (Aloxi) (0.05 mg/mL) injection Given 01/2022 10:25 AM EDT 0.25 mg 0.25 mg 0.25 mg, Intravenous, ONCE, 1 dose, On Wed08/07/22 at 1030, Administer over 30 seconds., Routine sodium chloride 0.9% infusion New Bag 08/07/2022 10:25 AM EDT 1,000 mLs 500 mL/hr 1,000 mL, at 500 mL/hr, Intravenous, CONTINUOUS, Starting on Wed08/07/22 at 1000, Until Wed08/07/22 at 1159, Pre CISplatin documented in this encounter Care Teams Renewable Energy Trader Relationship Specialty Start Date End Date Harshal Godfrey MD PCP - General Family Medicine 02/18/22 [address] [place] [address] documented as of this encounter
--- OUTSIDE RECORDS SUMMARY | 2022-08-21 01:34 | XMS_ITS | Encounter Summary ---
:1950 [place] [address] Care Team Providers Name Role Phone Harshal Godfrey MD Primary Care Provider [phone] Encounter Details Date Type Department Care Team Description 08/04/2022 Telephone Cardiology at Ofelia Ray MD [address] [facility] [place] [address] [place] [address] [phone] (Wo rk) Social History Tobacco Use Types [...] this encounter Miscellaneous Notes Telephone Encounter - Naomy Wahl, RN - 08/04/2022 1:49 PM EDT Left detailed VM to remind of the appointment tomorrow at 2:[address] Ofelia Rubalcava. documented in this encounter Plan of Treatment Upcoming Encounters Date Type Specialty Care Team Description 08/21/2022 Scheduled View Only Hematology and Dameon Hernandez MD [facility] [address] [address] [address] 08/21/2022 TH Visit (TeleHealth) Hematology Reddy Young Oncology [facility] ONCOLOGY [place], [place] [address] (Wo rk) 08/21/2022 Infusion Hematology and Oncology 08/28/2022 Office Visit Hematology Reddy Young Oncology [facility] [address] [place], [place] [address] (Wo rk) 08/28/2022 Infusion Hematology and Oncology 09/11/2022 Office Visit Reddy Thompson MD [facility] [place] [address] On[address] HEMATOLOGY AND [place], [place] [phone] 09/11/2022 Infusion Hematology and Oncology 09/18/2022 Office Visit Hematology and LaRNikky stallworth, Oncology [address] HEMATOLOGY AND [place], [place] [phone] (Wo rk) 09/18/2022 Infusion Hematology and Oncology 03/10/2023 Office Visit Cardiology Ofelia Rubalcava MD [facility] [address] [place] [address] (Wo rk) documented as of this encounter Visit Diagnoses Not on filedocumented in this encounter Care Teams Prevention Coordinator Relationship Specialty Start Date End Date Harshal Godfrey MD PCP - General Family Medicine 02/18/[address] [place] [id number] documented as of this encounter
--- OUTSIDE RECORDS SUMMARY | 2022-08-21 01:34 | XMS_ITS | Encounter Summary ---
:1950 Author Organization [facility] [place] [address] Care Team Providers Name Role Phone Harshal Godfrey MD Primary Care Provider [phone] Reason for Visit Reason Comments Chemotherapy Cycle 1, Day 8 Treatment/Therapy Plan Authorization (Routine) - Authorized Specialty Diagnoses / Procedures Referred By Contact Refer red To Contact Diagnoses Cholangiocarcinoma High risk medication use Low magnesium level Reddy Hernandez MD [facility] Hem Onc Infusion Procedures INFUSION [address] [place] [phone] Fax: Referral ID Status Reason Start Date Expiration Date Visits V isits Requested Authorized [id number] Authorized 06/30/2022 06/30/2023 99 99 Encounter Details Date Type Department Care Team Description 07/17/2022 Infusion Hematology Oncology at [facility] gh risk medication use; [facility] Cholangiocarcinoma; [address] [place] [address] Low magnesium level [place], [place] [phone] Social History Tobacco Use [...] place to sleep or slept in a fpc (including now)? Sex Assigned at Date Recorded Not on file documented as of this encounter Progress Notes Victorino Miner RN - 07/17/2022 9:30 AM EDT INFUSION THERAPY ADMINISTRATION NOTES DIAGNOSIS: Cholangiocarcinoma CYCLE #1: Day 8 REASON FOR VISIT: Gemcitabine & Cisplatin SUBJECTIVE Marcelle offers no complaints. She met with provider prior to infusion, ready for treatment. OBJECTIVE LAB DATA: Done today at [facility] for treatment. 2gm magnesium given for 1.0 today. IV ACCESS: Left hand PIV #22 BLOOD RETURN: yes ANY S/S OF INFECTION/EXTRAVASATIONS: none IV FLUSHED WITH: NS IV DISCONTINUED: yes Pre administration: Chemotherapy orders independently verified for drug name, route, and dosage per patient's height, weight and BSA by Victorino Miner RN and on-site pharmacist. REACTIONS (DESCRIPTION, TIME, INTERVENTION AND EFFECTIVENESS) none ASSESSMENT Marcelle was awake, alert and he tolerated treatment well. PLAN Return to clinic per routine. documented in this encounter Plan of Treatment Upcoming Encounters Date Type Specialty Care Team Description 08/21/2022 Scheduled View Only Hematology and Dameon Hernandez MD [facility] [address] [address] HEMATOLOGY AND [place], [place] [phone] 08/21/2022 TH Visit (TeleHealth) Hematology and Reddy Hernandez Oncology [facility] [address] [place], [place] [address] (Wo rk) 08/21/2022 Infusion Hematology and Oncology 08/28/2022 Office Visit Hematology and Reddy Hernandez Oncology [facility] [address] [place], [place] [address] (Wo rk) 08/28/2022 Infusion Hematology and Oncology 09/11/2022 Office Visit Hematology and Reddy Hernandez MD [facility] [place] [address] [address] HEMATOLOGY AND [place], [place] [phone] 09/11/2022 Infusion Hematology and Oncology 09/18/2022 Office Visit Hematology and Nikky Pak, Oncology [address] HEMATOLOGY AND [place], [place] [phone] (Wo rk) 09/18/2022 Infusion Hematology and Oncology 03/10/2023 Office Visit Cardiology Ofelia Rubalcava MD [facility] [address] [place] [address] (Wo rk) documented as of this encounter Visit Diagnoses Diagnosis High risk medication use Encounter for long-term (current) use of other medications Cholangiocarcinoma Malignant neoplasm of intrahepatic bile ducts Low magnesium level Colon cancer metastasized to liver Malignant neoplasm of colon, unspecified site documented in this encounter Administered Medications Inactive Administered Medications - up to 3 most recent administrations Medication Order MAR Action Action Date Dose Rate Site aprepitant (CINVANTI) injection Given 07/17/2022 9:38 AM EDT 130 mg Emul 130 mg 130 mg, Intravenous, ONCE, 1 dose, On Wed07/17/22 at 0945, Alternative administration of IV push over 2 minutes is a recommendation from the appeals reviewer veteran. Administer prior to chemotherapy., Routine CISplatin (Platinol) 50 mg in New Bag 07/17/2022 11:40 AM EDT 50 m g 300 mL/hr sodium chloride 0.9% 300 mL infusion 50 mg (rounded from 49.75 mg = 25 mg/m2/dose ? 1.99 m2 Treatment Plan BSA from Recorded weight), Intravenous, ONCE, 1 dose, On Wed07/17/22 at 1045, Administer over 60 Minutes dexAMETHasone (Decadron) tablet 10 mg Given 07/17/2022 9:36 AM EDT 10 mg 10 mg, Oral, ONCE, 1 dose, On Wed07/17/22 at 0945, Administer prior to chemotherapy, Routine GEMcitabine 2,000 mg in sodium New Bag 07/17/2022 10:22 AM EDT 2,000 mg 605.2 mL/hr chloride 0.9% 302.6 mL infusion 2,000 mg, Intravenous, ONCE, 1 dose, On Wed07/17/22 at 1045, Administer over 30 Minutes, Warning Vesicant/Irritant Medication Dose Ordered = 1990 mg (1000 mg/m2). Pharmacist rounded dose per procedure. magnesium sulfate 2 g in sterile water New Bag 07/17/2022 11:0 7 AM EDT 2 g 25 mL/hr 50 mL infusion 2 g, Intravenous, ONCE, 1 dose, On Wed07/17/22 at 1115, Administer over 120 Minutes palonosetron (Aloxi) (0.05 mg/mL) injection Given 07/04 9:36 AM EDT 0.25 mg 0.25 mg 0.25 mg, Intravenous, ONCE, 1 dose, On Wed07/17/22 at 0945, Administer over 30 seconds., Routine sodium chloride 0.9% infusion New Bag 07/17/2022 9:30 AM EDT 1,000 mLs 500 mL/hr 1,000 mL, at 500 mL/hr, Intravenous, CONTINUOUS, Starting on Wed07/17/22 at 0945, Until Wed07/17/22 at 1144, Pre CISplatin documented in this encounter Care Teams Farmworker Machine Relationship Specialty Start Date End Date Harshal Godfrey MD PCP - General Family Medicine 02/18/22 [facility] [address] documented as of this encounter
--- OUTSIDE RECORDS SUMMARY | 2022-08-21 01:34 | XMS_ITS | Encounter Summary ---
:1950 Author Organization [facility] [place] [address] Care Team Providers Name Role Phone Harshal Godfrey MD Primary Care Provider [phone] Encounter Details Date Type Department Care Team Description 08/07/2022 Travel Social History Tobacco Use Types Packs/Day [...] place to sleep or slept in a chcf (including now)? Sex Assigned at Date Recorded Not on file documented as of this encounter Plan of Treatment Upcoming Encounters Date Type Specialty Care Team Description 08/21/2022 Scheduled View Only Dameon Thompson MD [facility] [place] [address] [address] HEMATOLOGY AND [place], [place] [phone] 08/21/2022 TH Visit (TeleHealth) Hematology and Reddy Hernandez Oncology [facility] [address] [place], [place] [address] (Wo rk) 08/21/2022 Infusion Hematology and Oncology 08/28/2022 Office Visit Hematology and Reddy Hernandez Oncology [facility] [address] [place], [place] [address] (Wo rk) 08/28/2022 Infusion Hematology and Oncology 09/11/2022 Office Visit Sharon and Reddy Hernandez MD [facility] [place] [address] On[address] HEMATOLOGY AND [place], [place] [phone] 09/11/2022 Infusion Hematology and Oncology 09/18/2022 Office Visit Hematology and Nikky Pak Oncology [address] HEMATOLOGY AND [place], [place] [phone] (Wo rk) 09/18/2022 Infusion Hematology and Oncology 03/10/2023 Office Visit Cardiology Ofelia Rubalcava MD [facility] [address] [place] [address] (Wo rk) documented as of this encounter Visit Diagnoses Not on filedocumented in this encounter Care Teams Cabinet Mounter Relationship Specialty Start Date End Date Harshal Godfrey MD PCP - General Family Medicine 02/18/22 [address] [place] [address] documented as of this encounter
--- OUTSIDE RECORDS SUMMARY | 2022-08-21 01:34 | XMS_ITS | Clinical Summary ---
:1950 Author Organization [facility] [place] [address] Care Team Providers Name Role Phone Harshal Godfrey MD Primary Care Provider [phone] Allergies No known active allergies Medications Medication Sig Dispensed Refills Start Date End Date Status simvastatin (ZOCOR) 20 Take 20 mg by 0 Active mg tablet mouth nightly. metFORMIN (GLUCOPHAGE) Take 500 mg by 0 Active 500 mg tablet mouth 2 times daily (with meals). aspirin 81 mg EC Take 81 mg by 0 Active tablet mouth daily. citalopram (CeleXA) 20 Take 20 mg by 0 03/13/2021 Active mg Tablet mouth daily. diphenhydrAMINE Take 50 mg by 0 Active (Benadryl) 25 mg mouth nightly as Capsule needed for Itching. vit A/C/E Take 1 tablet by 0 Act tonia ac/ZnOx/cupric oxide mouth 2 times (EYE VITAMIN AND daily. [facility] [employer]) DVS nystatin (MYCOSTATIN) Apply 1 0 11/30/2021 Active 100,000 unit/gram Application Powder topically daily as needed. PRN acetaminophen Take 2 tablets by 0 04/08/2022 Active (Tylenol) 500 mg mouth every 6 Tablet hours as needed for Pain. amoxicillin (Amoxil) Take 4 capsules by 0 04/08/2022 Active 500 mg Capsule mouth as needed. Take 4 tablets, 2000mg, 1 hour before dental procedures. Additional Information Patient not taking. Reported on 08/07/2022 clopidogreL (Plavix) 75 mg Take 1 tablet by 90 tablet 3 202104/05/2023 Active Tablet mouth daily for 360 days. prochlorperazine Take 1 tablet by 20 tablet 5 07/10/2022 Active (Compazine) 10 mg mouth every 6 TabletIndications: hours as needed Cholangiocarcinoma, for Nausea. Drug-induced nausea and vomiting Additional Information Patient not taking. Reported on 08/07/2022 ferrous sulfate 325 mg (65 mg Take one tablet 30 tablet 5 07/04 Active iron) TabletIndications: every other day- Cholangiocarcinoma, Microcytic take with Vitamin C anemia magnesium oxide (Mag-Ox) 400 mg Take 1 tablet by 30 tablet 12 1 Active (241.3 mg magnesium) mouth 2 times daily. TabletIndications: Hypomagnesemia metoproloL tartrate (Lopressor) Take 0.5 tablets by 90 tablet 3 08/05/2022 Active 25 mg TabletIndications: mouth 2 times daily. Coronary artery disease involving coronary bypass graft of [place] heart without angina pectoris Active Problems Problem Noted Date Low magnesium [...] 01/29/2022 Aortic stenosis, severe 01/29/2022 Dermatitis 12/10/2011 Resolved Problems Problem Noted Date Resolved Date Lung nodule 02/04/2022 04/21/2022 Encounters Date Type Specialty Care Team Description 11/18/202 Infusion Hematology and 2 Oncology Infusion Hematology and Low magnesium level; 2 Oncology High risk medic ation use; Cholangiocarcin jaycee; Hypomagnesemia Office Visit Hematology and Ripple, Adenocarcinom a of unknown primary; 2 Oncology Reddy H, Hypomagnesemia Ramila Rosado, STENCIL INSPECTOR Travel 2 Office Visit Cardiology Ofelia Rubalcava Coronary artery disease involving coronary bypass graft of [place] heart without angina pectoris; 2 MD Ledy S/P AVR (aortic valve replacement) and aortoplasty and CABG; Primary hyperte nsion; Cholangiocarcin jaycee Telephone Cardiology Ofelia Rubalcava 2 MD Ledy Infusion Hematology and Low magnesium level; 2 Oncology High risk medic ation use; Cholangiocarcin jaycee Office Visit Hematology and Ripple, Cholangiocarc inoma; 2 Oncology Reddy Loaiza, Iron deficiency anemia, unspecified iron deficiency anemia type; HypomagnRamila Blanco, STENCIL INSPECTOR Travel 2 Infusion Hematology and High risk med ication use; 2 Oncology Cholangiocarcin jaycee; Low magnesium l evel Office Visit Hematology and Ripple, Cholangiocarc inoma; 2 Oncology Reddy Loaiza, Microcytic anem ia Ramila Rosado, STENCIL INSPECTOR Orders Only Hematology and [place], Cholangiocarc inoma; 2 Oncology Ramila Willard, Microcytic anem ia STENCIL INSPECTOR Telephone Hematology and Salgado, Follow-up 2 Oncology KALIE Alexander Infusion Hematology and High risk med ication use; 2 Oncology Cholangiocarcin jaycee Office Visit Hematology and Ripple, Cholangiocarc inoma; 2 Oncology Reddy Loaiza, Drug-induced na usea and vomiting Orders Only Hematology and Ripple, 2 Oncology Reddy Loaiza MD TH Visit (TeleHealth) Hematology and Ripple, Chol angiocarcinoma; 2 Oncology Reddy Loaiza, High risk medic ation use Orders Only Hematology and Ripple, 2 Oncology Reddy Loaiza MD Ancillary Procedure Radiology Ripple, 2 Reddy Loaiza MD Multidisciplinary Care Hematology and Ripple, 2 Committee Oncology Reddy Loaiza MD Hospital Encounter Hematology and Adenoca rcinoma of unknown primary; 2 Oncology Cholangiocarcin jaycee Office Visit Hematology and David, Adenocarcinom a of unknown primary; 2 Oncology Reddy Loaiza, Cholangiocarcin jaycee; Liver tumor; Hepatocellular carcinoma; Microcytic anem ia Multidisciplinary Care Gastroenterology Ann, 2 Committee Sharla Rodriguez RN Multidisciplinary Care Hematology and David, 2 Committee Oncology Reddy Loaiza MD Patient Outreach Hematology and [place], Establish Care 2 Oncology KALIE Tellez Telephone GastroenterCarmelita Purdy MD Telephone Gastroenterology Carmelita Donald MD Anesthesia Event Gastroenterology Carmelita Gilbert MD Surgery Gastroenterology Odilon UPPER EUS- ENDOSCOPIC RASTA Young MD Hospital Encounter Gastroenterology Carmelita Donald MD from Last 3 Months Immunizations Name Administration Dates Next Due Influenza Vaccine, Whole 06/25/2009 Family History Medical History Relation Comments Cancer Father Cerebrovascular Accident Mother Hypertension Mother Pacemaker Mother Relation Status Comments Father Mother Sister Alive Social History Tobacco Use Types Packs/Day Years [...] place to sleep or slept in a half-way (including now)? Sex Assigned at Date Recorded Not on file Last Filed Vital Signs Vital Sign Reading [...] Mass Index 43.23 08/07/2022 9:10 AM EDT Plan of Treatment Upcoming Encounters Date Type Specialty Care Team Description 08/21/2022 Scheduled View Only Hematology Dameon Young MD [facility] [place] [address] Oncology Nikky Pak [address] [place] [address] 08/21/2022 TH Visit (TeleHealth) Reddy Thompson Oncology [facility] [address] [place], [place] [address] (Wo rk) 08/21/2022 Infusion Hematology and Oncology 08/28/2022 Office Visit Reddy Thompson Oncology [facility] [address] [place], [place] [address] (Wo rk) 08/28/2022 Infusion Hematology and Oncology 09/11/2022 Office Visit Hematology and Reddy Hernandez MD [facility] [place] [address] Oncology Nikky Pka[address] HEMATOLOGY AND [place], [place] [id number] 09/11/2022 Infusion Hematology and Oncology 09/18/2022 Office Visit Hematology and Nikky Pak, Oncology [address] HEMATOLOGY [place], [place] [id number] (Wo rk) 09/18/2022 Infusion Hematology and Oncology 03/10/2023 Office Visit Cardiology Ofelia Rubalcava MD [facility] [address] [place], [place] [address] (Wo rk) Health Maintenance Due Date Last Done Comments Covid-19 Vaccine (#1) 1950 Pneumoccocal Vaccine: 65+ (1 - 1957 PCV) DM Hemoglobin A1c 1961 DM Opthalmology Exam 1961 DM Urine Microalbumin yearly 1961 Hepatitis C Screening 1969 Tdap adult 1970 Tetanus vaccine 1970 Breast Cancer Share Decision 1991 Needed Colonoscopy 02/09/1996 Breast Cancer screening 2001 Zoster vaccine (1 of 2) 2001 Advance Directive 2006 Bone Density Scan 02/09/2016 Influenza (Flu) vaccine (1 of 1 - 06/04/2022 06/25/2009 Influenza standard series) DM Creatinine yearly 06/16/2023 06/16/2022, 04/07/2022, 04/06/2022, Additional history exists Medical Devices Implanted Type Area Ticketing Agent Device Identifier Shelf Model / Expiration Serial / Date Lot [id number] ([id number]) - [id number] IMPLANTS Midline: [employer] - [id number] 04/30/2026 [id number] / Implanted: Qty: 1 on 03/30/2022 by Abdulkadir Raya MD at [facility] Heart [employer] BARD / [id number] Procedures Procedure Name Priority Date/Time Associated Diagnosis Comme nts LAB SCAN 08/07/2022 12:00 Results for this AM EDT procedure are i n the results section. LAB SCAN 08/07/2022 12:00 Results for this AM EDT procedure are i n the results section. LAB SCAN 08/07/2022 12:00 Results for this AM EDT procedure are i n the results section. LAB SCAN 08/07/2022 12:00 Results for this AM EDT procedure are i n the results section. LAB SCAN 08/07/2022 12:00 Results for this AM EDT procedure are i n the results section. LAB SCAN 07/31/2022 12:00 Results for this AM EDT procedure are i n the results section. LAB SCAN 07/31/2022 12:00 Results for this AM EDT procedure are i n the results section. LAB SCAN 07/31/2022 12:00 Results for this AM EDT procedure are i n the results section. LAB SCAN 07/17/2022 12:00 Results for this AM EDT procedure are i n the results section. LAB SCAN 07/17/2022 12:00 Results for this AM EDT procedure are i n the results section. LAB SCAN 07/17/2022 12:00 Results for this AM EDT procedure are i n the results section. LAB SCAN 07/17/2022 12:00 Results for this AM EDT procedure are i n the results section. LAB SCAN 07/17/2022 12:00 Results for this AM EDT procedure are i n the results section. LAB SCAN 07/17/2022 12:00 Results for this AM EDT procedure are i n the results section. LAB SCAN 07/17/2022 12:00 Results for this AM EDT procedure are i n the results section. LAB SCAN 07/17/2022 12:00 Results for this AM EDT procedure are i n the results section. LAB SCAN 07/10/2022 12:00 Results for this AM EDT procedure are i n the results section. LAB SCAN 07/10/2022 12:00 Results for this AM EDT procedure are i n the results section. CT SCAN (SCAN) 06/30/2022 12:00 Results f or this AM EDT procedure are i n the results section. FILM LIBRARY STORAGE Routine 06/29/2022 12:00 Res ults for this ONLY CT CHEST ABDOMEN AM EDT proced ure are in PELVIS the results section. LAB SCAN 06/29/2022 12:00 Results for this AM EDT procedure are i n the results section. CT SCAN (SCAN) 06/29/2022 12:00 Results f or this AM EDT procedure are i n the results section. IRON AND TIBC Routine 06/16/2022 12:15 Results fo r this PM EDT procedure are i n the results section. FERRITIN Routine 06/16/2022 12:15 Results for this PM EDT procedure are i n the results section. AFP TUMOR MARKER Routine 06/16/2022 12:15 Results for this PM EDT procedure are i n the results section. DIFFERENTIAL, Routine 06/16/2022 12:15 Adenocarcinoma of Resul ts for this AUTOMATED PM EDT unknown primary procedure ar e in the results section. HEMOGRAM Routine 06/16/2022 12:15 Adenocarcinoma of Result s for this PM EDT unknown primary procedure ar e in the results section. HC CARBOHYDRATE Routine 06/16/2022 12:15 Adenocarcinoma of Res ults for this ANTIGEN 19-9 PM EDT unknown primary procedure are in Cholangiocarcinoma the resul ts section. COMPREHENSIVE Routine 06/16/2022 12:15 Adenocarcinoma of Resul ts for this METABOLIC PANEL PM EDT unknown primary procedure are in (NON-FASTING) the results section. HC VENIPUNCTURE Routine 06/16/2022 12:15 Adenocarcinoma of PM EDT unknown primary SOLID TUMOR NGS PANEL Routine 05/27/2022 8:17 AM EDT NON-MOBILE WEB APPLICATION DEVELOPER FINAL REPORT Routine 05/27/2022 8:17 Resu lts for this AM EDT procedure are i n the results section. CYTOPATHOLOGY Routine 05/27/2022 8:17 Results for this NON-GYNECOLOGICAL AM EDT procedure are in the results section. FINE NEEDLE 05/27/2022 7:50 Liver mass ASPIRATION BIOPSY, AM EDT INC US GUIDANCE; FIRST LESION UPPER EUS- ENDOSCOPIC 05/27/2022 7:50 Liver mass ULTRASOUND AM EDT UPPER EUS-ENDOSCOPIC Routine 05/27/2022 6:58 Resu lts for this ULTRASOUND AM EDT procedure are i n the results section. from Last 3 Months Results SCAN DOC: LAB (08/07/2022 12:00 AM EDT)Only the most recent of19 resultswithin the time period is included. Narrative 08/07/2022 12:00 AM EDT This result has an attachment that is no t available. Ordered by an unspecified provider. Scanning Provider MEDIA MGR SCAN EXT ORDR/RSLT SCAN DOC: CT SCAN (06/30/2022 12:00 AM EDT)Only the most recent of2 results within the time period is included. Anatomical Region Laterality Modality Other Narrative 06/30/2022 12:00 AM EDT This result has an attachment that is no t available. Ordered by an unspecified provider. Scanning Provider MEDIA MGR SCAN EXT ORDR/RSLT Film Library- Storage Only CT Chest Abdomen Pelvis (06/29/2022 12:00 AM EDT) Specimen (Source) Anatomical Location Collection Method / Collectio n Time Received Time / Laterality Volume Narrative [facility] - 06/30/2022 10:50 AM EDT This exam is auto-finalizing. It's purpo se is for storage only. Reddy Hernandez MD IMG FILM LIBRARY ORDERABLES Performing Organization Address City/State/ZIP Code Phon e Number [place], [place] (ABNORMAL) Hemogram (06/16/2022 12:15 PM EDT) Analysis Performed At Patho logist Time Signature WBC 12.0 (H) 4.0 - 9.5 [facility] [place] x10(3)/[facility] LABORATORY RBC 4.84 4.00 - [place] 5.21 [facility] x10(6)/[facility] LABORATORY Hemoglobin 10.7 (L) 11.7 - [place] 15.5 g/dL [facility] LABORATORY Hematocrit 37.7 35.7 - [place] 45.8 % [facility] LABORATORY MCV 77.9 (L) 82.6 - [facility] [place] 94.4 fL [facility] LABORATORY MCH 22.1 (L) 27.1 - [place] 32.0 pg [facility] LABORATORY MCHC 28.4 (L) 31.7 - [place] GARNICA 35.0 g/dL [facility] LABORATORY Platelets 336 145 - 357 [facility] x10(3)/[facility] LABORATORY RDWSD 50.4 (H) 37.0 - [place] GARNICA 46.0 [facility] LABORATORY RDWCV 18.1 (H) 11.5 - [facility] [place] 14.1 % [facility] LABORATORY MPV 9.3 7.6 - 12.9 [facility] LABORATORY nRBC % Auto 0.0 % [facility] LABORATORY nRBC Abs Auto 0.000 0.000 - [facility] 0.000 [facility] x10(3)/[facility] LABORATORY Specimen Anatomical Collection Method Collection Time Receive d Time (Source) Location / / Volume Laterality Blood 06/16/2022 12:15 06/16/2022 PM EDT 12:28 PM EDT Resulting Agency Comment Spec In Lab Reddy Hernandez MD HEMATOLOGY ORDERABLES Performing Organization Address City/State/ZIP Code Phon e Number [place] [id number] (ABNORMAL) Differential, Automated (06/16/2022 12:15 PM EDT) [facility] gist Method Time Signature Neutrophils % 77.1 % [facility] LABORATORY Neutr Abs (ANC) 9.28 (H) 1.70 - [place] GARNICA 6.10 [facility] x10(3)/[facility] LABORATORY Lymphocytes % 9.6 % [facility] LABORATORY Lymphocytes Abs 1.2 0.9 - 3.2 [facility] x10(3)/[facility] LABORATORY Monocytes % 8.6 % [facility] LABORATORY Monocyte Abs 1.0 (H) 0.3 - 0.9 [facility] x10(3)/[facility] LABORATORY Eosinophils % 2.9 % [facility] LABORATORY Eosinophils Abs 0.4 0.0 - 0.4 [facility] x10(3)/[facility] LABORATORY Basophils % 1.0 % [facility] LABORATORY Basophils Abs 0.1 0.0 - 0.1 [facility] x10(3)/[facility] LABORATORY Immature Gran % 0.80 % [facility] LABORATORY Comment: Immature granulocytes(IG's)percentage an d absolute count will include metamyelocytes, myelocytes, and promyelo cytes. Blood smears from CBCs yielding IG's will be scanned manually for concor dance. If this scan disagrees with the automated IG or if promyelocytes are not ed, a manual differential will be performed. Zohreh Gran Abs 0.10 (H) 0.00 - 0.04 x10(3)/[facility] LABORATORY Specimen Anatomical Collection Method Collection Time Receive d Time (Source) Location / / Volume Laterality Blood 06/16/2022 12:15 06/16/2022 PM EDT 12:28 PM EDT Resulting Agency Comment Spec In Lab Reddy Hernandez MD HEMATOLOGY ORDERABLES Performing Organization Address City/[facility]/[place] [address] (ABNORMAL) Iron and TIBC (06/16/2022 12:15 PM EDT) P athologist Signature Iron 26 (L) 30 - 150 [facility] mcg/dL [facility] LABORATORY TIBC 372 250 - 450 [facility] mcg/dL [facility] LABORATORY Iron Saturation 7 (L) 20 - 50 % [facility] LABORATORY Specimen Anatomical Collection Method Collection Time Receive d Time (Source) Location / / Volume Laterality Blood Venous Draw / 06/16/2022 12:15 06/16/2022 Unknown PM EDT 12:39 PM EDT Resulting Agency Comment Spec In Lab Reddy Hernandez MD CHEMISTRY ORDERABLES Performing Organization Address City/[facility]/[place] [address] (ABNORMAL) Carbohydrate Antigen 19-9 (06/16/2022 12:15 PM EDT) P athologist Signature CA 19-9 843.0 (H) <=35.0 [facility] u/ml [facility] LABORATORY Comment: This result was generated using a John Endy immunoassay. ??Results obtained from other methods or manufacturers gay ot be used interchangeably with this method. Specimen Anatomical Collection Method Collection Time Receive d Time (Source) Location / / Volume Laterality Blood 06/16/2022 12:15 06/16/2022 PM EDT 12:28 PM EDT Resulting Agency Comment Spec In Lab Reddy Hernandez MD CHEMISTRY ORDERABLES Performing Organization Address City/[facility]/[place] [address] AFP tumor marker (06/16/2022 12:15 PM EDT) [facility] AFP 2.1 <=8.3 ng/mL [facility] LABORATORY Comment: This result was generated using a John Endy immunoassay. ??Results obtained from other methods or manufacturers gay ot be used interchangeably with this method. Specimen Anatomical Collection Method Collection Time Receive d Time (Source) Location / / Volume Laterality Blood Venous Draw / 06/16/2022 12:15 06/16/2022 Unknown PM EDT 12:39 PM EDT Resulting Agency Comment Spec In Lab Reddy Hernandez MD CHEMISTRY ORDERABLES Performing Organization Address [facility]/[place] [address] Ferritin (06/16/2022 12:15 PM EDT) [facility] Ferritin 46 30 - 400 [facility] ng/mL [facility] LABORATORY Comment: Pediatric reference ranges not verified at [facility], interpret with caution. Reference ranges for females greater tenzin n 50 years of age approach values for men, i.e., 30-400 ng/mL. Specimen Anatomical Collection Method Collection Time Receive d Time (Source) Location / / Volume Laterality Blood Venous Draw / 06/16/2022 12:15 06/16/2022 Unknown PM EDT 12:39 PM EDT Resulting Agency Comment Spec In Lab Reddy Hernandez MD CHEMISTRY ORDERABLES Performing Organization Address City/[facility]/ZIP [facility] [place] [address] (ABNORMAL) Comprehensive metabolic panel (non-fasting) (06/16/2022 12:15 PM EDT) [facility] Glucose Lvl 96 65 - 199 [facility] mg/dL [facility] LABORATORY Comment: Diabetes: >=200 mg/dL plus symp toms BUN 24 (H) 8 - 18 mg/dL [facility] LABORATORY Creatinine 0.97 0.70 - 1.20 mg/dL [facility] LABORATORY Sodium 138 135 - 145 mmol/L [facility] LABORATORY Potassium 4.6 3.5 - 5.0 mmol/L [facility] LABORATORY Comment: Please note: ??Patients with WBC >100,00 0 may have falsely elevated Potassium levels. ??For accurate Potassium quantif ication in these patients send serum separator tube (gold top) for subsequent determinations. ??Contact the Clinical Chemistry Laboratory if there are any qu estions. Chloride 103 98 - 107 mmol/L [facility] LABORATORY CO2 25 22 - 31 mmol/L [facility] LABORATORY Anion Gap 10 5 - 15 mmol/L [facility] LABORATORY Calcium 9.1 8.5 - 10.5 mg/dL [facility] LABORATORY Total Protein 6.9 6.1 - 8.0 g/dL [facility] LABORATORY Albumin 3.9 3.2 - 5.2 g/dL [facility] LABORATORY AST 23 0 - 30 unit/L [facility] LABORATORY ALT 12 0 - 30 unit/L [facility] LABORATORY Alk Phos 71 35 - 105 unit/L [facility] LABORATORY Total Bilirubin 0.3 0.2 - 1.3 mg/dL [facility] LABORATORY Estimated GFR 62 >=60 mL/min/1.73 m?? [facility] LABORATORY Comment: This patient's estimated GFR was calcula prasanth using the 2020 CKD-EPI equation. The estimated GFR can vary from the valeria ured GFR by up to 30% in the absence of rapidly changing kidney function. Assess ment of the estimated GFR is not appropriate when creatinine concentratio ns are rapidly changing. For clinical situations in which a more precise estim ate of GFR is necessary, consider alternative methods of GFR estimation pinto ch as a 24-hour urine creatinine clearance. Assignment of CKD stage 1-5 for patients with an eGFR near the transition point between stages may be based on clinical assessment of muscle mass and symptoms in addition to eGFR. Specimen Anatomical Collection Method Collection Time Receive d Time (Source) Location / / Volume Laterality Blood 06/16/2022 12:15 06/16/2022 PM EDT 12:28 PM EDT Resulting Agency Comment Spec In Lab Reddy Hernandez MD CHEMISTRY ORDERABLES Performing Organization Address [facility] Phon e Number [address] Solid Tumor NGS Panel (05/27/2022 8:17 AM EDT) Specimen Anatomical Collection Method Collection Time Receive d Time (Source) Location / / Volume Laterality Tissue 05/27/2022 8:17 AM 5:44 EDT PM EDT Resulting Agency Comment Spec In Lab Rojas Donald MD PATHOLOGY/CYTOLOGY ORDERABLE S Performing Organization Address City/[facility] Phon e Number [address] LABORATORY [place] Non-Scrap Dealer Final Report (05/27/2022 8:17 AM EDT) Component Value Ref Test Analysis Performed At [facility] gist Range Method Time Signature Non-Scrap Dealer [id number] ? Location: 4; EA09; [facility] Final Report [place] The signing pathologist has (i) examined the relevant preparation(s) for the [facility] specimen(s) and (ii) rendered or confirmed the diagnosis(es) . HOSPITAL LABORATORY . ? Addendum ADDENDUM DISCUSSION - Immunostains for MLH1, MSH 2, MSH6 and PMS2 (A1) reveal intact nuclear staining in tumor cells. ? These results alone do not support eligibility for ?Keytruda (pembrolizumab). Immunohistochemical assay wa s performed on paraffin-embedded tissue sections fixed in 10% neutral buffered for hector for 6-72 hours using the polymer system technique with appropriate controls. The assay was performed according to the bridal service sales and management's instructions using anti-MLH -1 ([id number]), anti-MSH-2 ([id number]), anti-MSH-6 (44), and anti-PMS-2 ([id number]) antibodies. Electronically signed by: ?Armando Sandoval MD Verified: ??06/30/2022 12:27 ??Pathologist Performed at: ??-[facility] Dept. of Pathology, [place], [place] ? No n-Scrap Dealer Final DIAGNOSIS Positive for Malignancy Electronically signed by: ?José Miguel De Paz MD Verified: ??06/06/2022 14:55 ??Cytopathologist Performed at: ??-[facility] Dept. 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 Note: The immunoperoxidase stain results do not specify a pr imary site. Recommend clinical correlation. Dr. Silva reviewed this case and concurs with the dia nosis. --- Immunohistochemistry Studies --- Interpretation: ? Immunohistochemical a ssays were performed (on paraffin-embedded cell block sections fixed in 10% neutr al buffered formalin for 6-72 hours) using the polymer technique with appropriate controls. The sections are studied for CK AE1/3, CK7, CK20, Hep-par1, PAX8, inhib in, TTF-1, GATA3, OCT3/4, CAIX, BAP1, arginase, CD10, synaptophysin, chromogranin , and SMAD4. The lesional cells are immunoreactive for CK AE1/3 and CK7; they are negative for CK20, Hep-par1, PAX8, inhibin, TTF-1, GATA3, OCT3/4, arginase, CD10, syn aptophysin, and chromogranin. The lesional cells retain staining for BAP1 and SMAD4 . The staining for CAIX is interpreted as non-specific. These immunohistochemical st udies provide ancillary information and are used only in conjunction with standard diagnostic procedures. CLINICAL INFORMATION Specimen Source : Liver: left lobe (EUS-guided FNA - assisted) Pertinent Clinical Data and Significant Therapy: 72y/o F, hx left hepatic lobe mass . CLINICAL INFORMATION Clinical Impression : Left hepatic lobe mass, r/o HCC vs cholangiocarcinoma Pertinent Radiologic Findings ??: (not provided) Gross Description: Received in Formalin approxi mately 50 mL total volume of cloudy, julissa fluid, with clots. Total Preparation: Diff-Quik 1; Pap Stain 1; Cell Block 1. Specimen (Source) Anatomical Collection Method Collection Time Re ceived Time Location / / Volume Laterality 05/27/2022 8:17 AM EDT Rojas Donald MD PATHOLOGY/CYTOLOGY ORDERABLE S Performing Organization Address City/State/[place] [address] Cytopathology Non-Gynecological (05/27/2022 8:17 AM EDT) Specimen Anatomical Collection Method Collection Time Receive d Time (Source) Location / / Volume Laterality AP Specimen 05/27/2022 8:17 AM 8:17 EDT AM EDT Narrative [facility] - 05/27/2022 8:17 AM EDT Specimen requisition ordered. ??Separate Pathology report to follow Rojas Donald MD PATHOLOGY/CYTOLOGY ORDERABLE S Performing Organization Address City/State/[place] [address] UPPER EUS-ENDOSCOPIC ULTRASOUND (05/27/2022 6:58 AM EDT) Component Value Ref Test Analysis Performed At [facility] gist Range Method Time Signature UPPER [facility] ENDOSCOPIC Endoscopy ULTRASOUND _ Procedure Date: 05/27/2022 6:58 AM ? Patient Name: Marcelle Conner ? Date of : 1950 ? Age: 72 ? Order #: [id number] ? Instrument Name: [id number] ? Procedure: ? Upper EUS Indications: ? Suspected mass in liver on MRI Providers: ? Rojas Donald MD, Freddy Vega ? Betty Ku Kris tin K. ? Sheryl, Drying Tunnel Operator Referring : ?Harshal Godfrey Medicines: ? Monitored Anesthesia Care Complications: ? No immediate complications. Procedure: ? Pre-Anesthesia Assessment: ? - Prior to the procedure, a History ? and Physical was performed , and ? patient medications and al lergies ? were reviewed. The patient is ? competent. The risks and b enefits ? of the procedure and the s edation ? options and risks were dis cussed ? with the patient. All ques tions ? were answered and informed consent ? was obtained. Patient ? identification and propose d ? procedure were verified by the ? physician in the pre-proce dure ? area. Mental Status Examin ation: ? alert and oriented. Airway ? Examination: normal oropha ryngeal ? airway and neck mobility. ? Respiratory Examination: c lear to ? auscultation. CV Examinati on: ? normal. Prophylactic Antib iotics: ? The patient does not requi re ? prophylactic antibiotics. Prior ? Anticoagulants: The patien t has ? taken no anticoagulant or ? antiplatelet agents. ASA G rade ? Assessment: II - A patient with ? mild systemic disease. Aft er ? reviewing the risks and be nefits, ? the patient was deemed in ? satisfactory condition to undergo ? the procedure. The anesthe patti plan ? was to use monitored anest hesia ? care (MAC). Immediately pr ior to ? administration of medicati ons, the ? patient was re-assessed fo r ? adequacy to receive sedati ves. The ? heart rate, respiratory ra te, ? oxygen saturations, blood pressure, ? adequacy of pulmonary vent ilation, ? and response to care were monitored ? throughout the procedure. The ? physical status of the pat ient was ? re-assessed after the proc edure. ? The procedure, indications , ? benefits, risks and altern atives ? were explained to the cristina ent. ? Specifically discussed wer e ? potential complications in cluding, ? but not limited to, gabriele hand, ? perforation, infection, mi ssing a ? cancer, and adverse medica tion ? reactions. The Endoscope w as ? introduced through the gallo th, and ? advanced to the third part of ? duodenum. The upper EUS wa s ? accomplished without diffi culty. ? The patient tolerated the procedure ? well. ? Findings: ? ENDOSCOPIC FINDINGS: : ? The examined esophagus was endoscopically normal. ? The entire examined stomach was endoscopically normal . ? The examined duodenum was endoscopically normal. ? ENDOSONOGRAPHIC FINDINGS: : ? There was no sign of significant endosonographic ? abnormality in the esophagus, stomach, duodenum or ? celiac axis. ? There was no sign of significant endosonographic ? abnormality in the ampulla. Specifically the CBD and ? PD tapered normally to the ampulla. ? There was no sign of significant endosonographic ? abnormality in the common bile duct. The maximum ? diameter of the duct was 3 mm. The pancreas was ? normal in appearance. ? There was a subtle mass in the lateral left lobe of ? the liver that extended to the caudate lobe. It was ? homogenous and had poorly defined borders. It ? measured approximately 6 cm in diameter. Fine needle ? biopsy was performed. Color Doppler imaging was ? utilized prior to needle puncture to confirm a lack ? of significant vascular structures within the needle ? path. Six passes were made with the 22 gauge ? SharkCore biopsy needle using a transgastric ? approach. A visible core of tissue was obtained. A ? preliminary cytologic examination was performed. ? Final cytology results are pending. ? No lymphadenopathy seen. ? Moderate Sedation: ? Not applicable - See Anesthesia documentation Impression: ?- 6 cm left hepatic lobe mass s /p ? FNA Recommendation: ?- Await cytology results ? Attending Participation: ? I was present and participated during the entire ? procedure, including non-rousseau portions. ? Rojas Donald MD 05/27/2022 8:23:54 AM This report has been signed electronically. Number of Addenda: 0 Note Initiated On: 05/27/2022 6:58 AM Specimen (Source) Anatomical Collection Method Collection Time Re ceived Time Location / / Volume Laterality 05/27/2022 6:58 AM EDT Harshal Godfrey MD GENERAL SURGICAL ORDERABLES Performing Organization Address City/State/ZIP Code Phon e Number PROVATION from Last 3 Months Insurance Payer Benefit Plan / Subscriber ID Effective Phone Address T ype Group Dates MEDICARE MEDICARE PART A [id number] 2017-Prese [phone] [place] [address] AETNA MEDICARE AETNA MEDICARE [id number] 2020-Prese [address] [address] [place] [address] Advance Directives Latest Code Status on File Code Status Date Activated Date Inactivated Comments Attempt Cardiopulmonary Resuscitation - 03/30/2022 4:34 PM 04/08/20 3:09 PM Inpatient Question Answer Comments Code Status decision made by: Patient Code Status History Code Status Date Activated Date Inactivated Comments Attempt Cardiopulmonary Resuscitation - 03/30/2022 7:35 AM 4:34 PM Inpatient Question Answer Comments Code Status decision made by: Patient Attempt Cardiopulmonary Resuscitation - 03/30/2022 7:31 AM 7:35 AM Inpatient Question Answer Comments Code Status decision made by: Patient Attempt Cardiopulmonary Resuscitation - 03/19/2022 10:58 AM 2021 5:39 PM Inpatient Question Answer Comments Code Status decision made by: Patient Care Teams Credentialing Assistant Relationship Specialty Start Date End Date Harshal Godfrey MD PCP - General Family Medicine 02/18/22 [address] [place] [address]
--- OUTSIDE RECORDS SUMMARY | 2022-08-21 01:34 | XMS_ITS | Encounter Summary ---
:1950 Author Organization [facility] [place] [address] Care Team Providers Name Role Phone Harshal Godfrey MD Primary Care Provider [phone] Encounter Details Date Type Department Care Team Description 08/21/2022 Infusion Hematology Oncology at [address] [phone] Social History Tobacco Use [...] View Only Hematology and Dameon Hernandez MD [facility] [place] [address] [address] HEMATOLOGY AND [place], [place] [id number] 08/21/2022 TH Visit (TeleHealth) Hematology and Reddy Hernandez Oncology [facility] [address] [place], [place] [address] (Wo rk) 08/28/2022 Office Visit Hematology and Reddy Hernandez Oncology [facility] [address] [place], [place] [address] (Wo rk) 08/28/2022 Infusion Hematology and Oncology 09/11/2022 Office Visit Hematology and Reddy Hernandez MD [facility] [place] [address] [address] [place] AND [place], [place] [phone] 09/11/2022 Infusion Hematology and Oncology 09/18/2022 Office Visit Hematology and Nikky Pak, Oncology [address] [place] AND [place], [place] [phone] (Wo rk) 09/18/2022 Infusion Hematology and Oncology 03/10/2023 Office Visit Cardiology Ofelia Rubalcava MD [facility] [address] [place], [place] [address] (Wo rk) documented as of this encounter Visit Diagnoses Not on filedocumented in this encounter Care Teams Drawing Supervisor Relationship Specialty Start Date End Date Harshal Godfrey MD PCP - General Family Medicine 02/18/22 [facility] [place] [address] documented as of this encounter
--- OUTSIDE RECORDS SUMMARY | 2022-08-21 01:34 | XMS_ITS | Encounter Summary ---
:1950 Author Organization [facility] [place] [address] Care Team Providers Name Role Phone Harshal Godfrey MD Primary Care Provider [phone] Reason for Visit Reason Comments Coronary Artery Disease Hypertension Encounter Details Date Type Department Care Team Description 08/05/2022 Office Visit Cardiology at Ofelia Rubalcava MD Coronary artery disease involving swanson ry bypass graft of [place] heart without angina pectoris; [facility] S/P AVR (aortic valve replac ement) and aortoplasty and CABG; [address] [place] [address] Primary hypertension; [place] [phone] Social History Tobacco Use Types Packs/Day Years [...] place to sleep or slept in a retirement (including now)? Sex Assigned at Date Recorded Not on file documented as of this encounter Last Filed Vital Signs Vital Sign Reading Time Taken Comments Blood Pressure 142/83 08/05/2022 2:52 PM EDT Pulse 94 08/05/2022 2:52 PM EDT Temperature - - Respiratory Rate - - Oxygen Saturation - - Inhaled Oxygen Concentration - - Weight 93.4 kg (206 lb) 08/05/2022 2:52 PM EDT Height 147.3 cm (4' 10) 08/05/2022 2:52 PM EDT Body Mass Index 43.05 08/05/2022 2:52 PM EDT documented in this encounter Progress Notes Ofelia Rubalcava MD - 08/05/2022 2:40 PM EDT CARDIOLOGY OUTPATIENT FOLLOW-UP NOTE PRIMARY CARE PROVIDER: Harshal Godfrey MD REFERRING PROVIDER: Harshal Godfrey PROBLEM LIST: Patient Active Problem List Diagnosis ??? Bradycardia ??? Left atrial dilation ??? Aortic stenosis, severe ??? Low magnesium level ??? High risk medication use ??? Cholangiocarcinoma ??? Lymphadenopathy ??? Pulmonary nodules ??? Mediastinal lymphadenopathy, abnormal findings right and left liver lobes, numerous very small pulmonary nodules From CT 03/23/2022: UNEXPECTED FINDING of pathologic enlargement of mediastinal lymph nodes especially in the right paratracheal region, abnormal findings in the right and left liver lobe, as well as numerous very small pulmonary nodules. Findings are highly suspicious for malignancy. ??? S/P AVR (aortic valve replacement) and aortoplasty and CABG 03/30/22 ??? Class 3 severe obesity in adult ??? Pulmonary hypertension ??? CAD (coronary artery disease) ??? Diabetes mellitus ??? Hypertension ??? SOB (shortness of breath) ??? Dermatitis MEDICATIONS: Current Outpatient Medications Medication Sig Dispense Refill ??? magnesium oxide (Mag-Ox) 400 mg (241.3 mg magnesium) Tablet Take 1 tablet by mouth 2 times daily. 30 tablet 12 ??? ferrous sulfate 325 mg (65 mg iron) Tablet Take one tablet every other day- take with Vitamin C 30 tablet 5 ??? prochlorperazine (Compazine) 10 mg Tablet Take 1 tablet by mouth every 6 hours as needed for Nausea. (Patient not taking: No sig reported) 20 tablet 5 ??? clopidogreL (Plavix) 75 mg Tablet Take 1 tablet by mouth daily for 360 days. 90 tablet 3 ??? metoproloL tartrate (Lopressor) 25 mg Tablet Take 0.5 tablets by mouth 2 times daily. 30 tablet 3 ??? acetaminophen (Tylenol) 500 mg Tablet Take 2 tablets by mouth every 6 hours as needed for Pain. ??? amoxicillin (Amoxil) 500 mg Capsule Take 4 capsules by mouth as needed. Take 4 tablets, 2000mg, 1 hour before dental procedures. (Patient not taking: Reported on 07/31/2022) ??? nystatin (MYCOSTATIN) 100,000 unit/gram Powder Apply 1 Application topically daily as needed. PRN ??? diphenhydrAMINE (Benadryl) 25 mg Capsule Take 50 mg by mouth nightly as needed for Itching. ??? vit A/C/E ac/ZnOx/cupric oxide (EYE VITAMIN AND MINERALS ORAL) Take 1 tablet by mouth 2 times daily. [facility] ??? citalopram (CeleXA) 20 mg Tablet Take 20 mg by mouth daily. ??? simvastatin (ZOCOR) 20 mg tablet Take 20 mg by mouth nightly. ??? metFORMIN (GLUCOPHAGE) 500 mg tablet Take 500 mg by mouth 2 times daily (with meals). ??? aspirin 81 mg EC tablet Take 81 mg by mouth daily. No current facility-administered medications for this visit. Subjective: Patient ID: Marcelle Conner is a 72 y.o. female. HPI This 72-year-old woman presents for routine cardiac follow-up. She is status post single-vessel bypass and aortic valve replacement back in March. She subsequently has been diagnosed with cholangiocarcinoma and is undergoing chemotherapy. She says this is going well. She has had no issues with the treat ment. She has not had any difficulty breathing, nausea, shortness of breath chest discomfort or palpitations. She has a very positive attitude about how things are going to go. She had a [facility] opinion[facility] at [facility] about 2 weeks ago which was helpful and informative She has no specific cardiac concerns today Review of System Review of Systems Cardiovascular: Negative for chest pain, dyspnea on exertion, leg swelling and palpitations. Respiratory: Negative for shortness of breath. All other systems reviewed and are negative. Family History: Family History Problem Relation Age of Onset ??? Hypertension Mother ??? Pacemaker Mother ??? Cerebrovascular Accident Mother ??? Cancer Father Social History: Social History Socioeconomic History ??? Marital status: Spouse name: Not on file ??? Number of children: Not on file ??? Years of education: Not on file ??? Highest education level: Not on file Occupational History ??? Occupation: [employer], [employer] ??? Occupation: retired Tobacco Use ??? Smoking status: Former Smoker Types: Cigarettes Quit date: 03/23/2012 Years since quittin.3 ??? Smokeless tobacco: Never Used Vaping Use ??? Vaping Use: Never used Substance and Sexual Activity ??? Alcohol use: Yes Comment: rarely - 4 / year ??? Drug use: Not Currently Comment: CBD oil caps in past, stopeed @ 1 month ago ??? Sexual activity: Not on file Other Topics Concern ??? Not on file Social History Narrative ??? Not on file Social Determinants of Health Financial Resource Strain: Low Risk ??? Difficulty of Paying Living Expenses: Not hard at all Food Insecurity: No Food Insecurity ??? Worried About Running Out of Food in the Last Year: Never true ??? Ran Out of Food in the Last Year: Never true Transportation Needs: Unknown ??? Lack of Transportation (Medical): No ??? Lack of Transportation (Non-Medical): Not on file Physical Activity: Not on file Housing Stability: Low Risk ??? Unable to Pay for Housing in the Last Year: No ??? Number of Places Lived in the Last Year: 1 ??? Unstable Housing in the Last Year: No Objective: Physical Exam Vitals and nursing note reviewed. Constitutional: Comments: Obese no acute distress Neck: Comments: Normal carotid upstrokes with bilateral transmitted murmurs, no neck vein distention Cardiovascular: Comments: Heart is regular 2/6 systolic ejection quality murmur Pulmonary: Effort: Pulmonary effort is normal. Breath sounds: Normal breath sounds. Musculoskeletal: Comments: No peripheral edema Skin: General: Skin is warm and dry. Assessment and Plan: #1. Status post aortic valve replacement and coronary artery bypass grafting. Patient describes goodexercise tolerance without symptoms. She reports that her cardiac procedure significantly improved her overall exercise capacity and quality of life #2. Hypertension. Good blood pressure control on current therapy #3. Cholangiocarcinoma. Chemotherapy is in progress No cardiac testing or medication changes were recommended today. Metoprolol was renewed at the patient's request. We will plan to see her next March which will be about a year from her valve replacement Thank you for the opportunity to participate in this patient's cardiovascular care. All questions were answered and I look forward to the next visit. documented in this encounter Plan of Treatment Upcoming Encounters Date Type Specialty Care Team Description 08/21/2022 Scheduled View Only Hematology and Dameon Hernandez MD [facility] [place] [address] Oncology [address] [address] 08/21/2022 TH Visit (TeleHealth) Hematology Reddy Young Oncology [facility] [address] [place], [place] [address] (Wo leslee) 08/21/2022 Infusion Hematology and Oncology 08/28/2022 Office Visit Hematology Reddy Young Oncology [facility] [address] [place], [place] [address] (Luis F camilo) 08/28/2022 Infusion Hematology and Oncology 09/11/2022 Office Visit Hematology and Reddy Hernandez MD [facility] [place] [address] Oncology [address] [address] 09/11/2022 Infusion Hematology and Oncology 09/18/2022 Office Visit Hematology and Nikky Pak, Oncology [address] HEMATOLOGY AND [place], [place] [phone] (Wo rk) 09/18/2022 Infusion Hematology and Oncology 03/10/2023 Office Visit Cardiology Ofelia Rubalcava MD [facility] [address] [place], [place] [address] (Wo rk) documented as of this encounter Visit Diagnoses Diagnosis Coronary artery disease involving swanson ry bypass graft of [place] heart without angina pectoris S/P AVR (aortic valve replacement) and a ortoplasty and CABG Heart valve replaced by other means Primary hypertension Unspecified essential hypertension Cholangiocarcinoma Malignant neoplasm of intrahepatic bile ducts Colon cancer metastasized to liver Malignant neoplasm of colon, unspecified site documented in this encounter Care Teams Apn Relationship Specialty Start Date End Date Harshal Godfrey MD PCP - General Family Medicine 02/18/22 [facility] [place] [address] documented as of this encounter
--- OUTSIDE RECORDS SUMMARY | 2022-08-21 01:34 | XMS_ITS | Encounter Summary ---
:1950 Author Organization [facility] [place] [address] Care Team Providers Name Role Phone Harshal Godfrey MD Primary Care Provider Encounter Details Date Type Department Care Team Description 07/31/2022 Office Visit Hematology/Oncology Dameon Hernandez MD [facility] [place] [address] [facility] [address] [place] [address] [place] [address] Iron deficiency anemia, unspecified iron deficiency anemia type; [address] [place] [address] [place] [address] Social History Tobacco Use Types Packs/Day [...] place to sleep or slept in a [facility] (including now)? Sex Assigned at Date Recorded Not on file documented as of this encounter Last Filed Vital Signs Vital Sign Reading Time Taken Comments Blood Pressure 143/69 07/31/2022 9:17 AM EDT Pulse 100 07/31/2022 9:17 AM EDT Temperature 36.4 ??C (97.6 ??F) 07/31/2022 9:17 AM EDT Respiratory Rate 20 07/31/2022 9:17 AM EDT Oxygen Saturation 96% 07/31/2022 9:17 AM EDT Inhaled Oxygen Concentration - - Weight 94.8 kg (209 lb) 07/31/2022 9:17 AM EDT Height 147.3 cm (4' 9.99) 07/31/2022 9:17 AM EDT Body Mass Index 43.69 07/31/2022 9:17 AM EDT documented in this encounter Progress Notes Reddy Hernandez MD - 07/31/2022 9:30 AM EDT Subjective Patient ID: Marcelle [...] today. She continues to feeling generally well and feels well overall. She is eating well and her weight is stable. No diarrhea. She has some constipation which she attributes to taking oral iron. 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 Constitutional: General: [...] and Affect: Mood normal. Behavior: Behavior normal. Labs: WBC/ANC - 6.04/3770, Hgb/Hct - 10.9/38.9, Plts - 340,000. BUN/Cr - 26/1.1. Mg - 1.2. Lytes and LFTs o/w unremarkable Tsh - 1.48, FT4 - 1.25. CA 19-9 07/17/22 633 06/16/22 843 AFP 06/16/22 2.1 Assessment and Plan Marcelle oCnner is 72 yo, seen for evaluation and [...] quite upsetting for her. Again, based on [facility] discussion today, this is not felt to be the case. I willsee what the opinion is at [facility]. I did speak with Dr. Mitchell about the lung findings. Given the pathology result, the likelihood is that the findings in the chest are related to the underlying malignancy. If it is felt that it would pattern changer and repairer, ie make the difference between resectable vs unresectable disease, he would be willing to biopsy the LN via EBUS. Discussed at [facility] and with Dr. Esqueda on 06/23/22 - [...] adenopathy. She had a second opinion at [facility]. She was seen on 07/23/22 by [...] cisplatin, durvalumab and has received one cycle. Shehas tolerated this well. We will go ahead with therapy today and see her next week for considerationof cycle 2/day 8 therapy. We talked about whether to give IV iron. For now, she will continue the oral iron and we will recheck the iron studies. We will plan a restaging CT after cycle 3, sooner if clinically indicated. The magnesium will be supplemented and I sent a prescription for mag oxide, 400 mg bid, to her pharmacy. documented in this encounter Plan of Treatment Upcoming Encounters Date Type Specialty Care Team Description 08/21/2022 Scheduled View Only Hematology and Dameon Hernandez MD [facility] [place] [address] [address] HEMATOLOGY AND [place], [place] [id number] 08/21/2022 TH Visit (TeleHealth) Hematology and Reddy Hernandez Oncology [facility] [address] [place], [place] [address] (Wo rk) 08/21/2022 Infusion Hematology and Oncology 08/28/2022 Office Visit Hematology and Reddy Hernandez Oncology [facility] [address] [place], [place] [address] (Wo rk) 08/28/2022 Infusion Hematology and Oncology 09/11/2022 Office Visit Hematology and Reddy Hernandez MD [facility] [place] [address] On[address] HEMATOLOGY AND [place], [place] [id number] 09/11/2022 Infusion Hematology and Oncology 09/18/2022 Office Visit Hematology and Nikky Pak, Oncology [address] HEMATOLOGY AND [place], [place] [phone] (Wo rk) 09/18/2022 Infusion Hematology and Oncology 03/10/2023 Office Visit Cardiology Ofelia Rubalcava MD [facility] [address] [place] [address] (Wo rk) Scheduled Orders Name Type Priority Associated Diagnoses Order S chedule Iron and TIBC Lab Routine Cholangiocarcino ma Expected: 08/07/2022 Iron deficiency anemia, (Jayda roximate), Expires: unspecified iron deficiency 02/06/2023 anemia type Ferritin Lab Routine Cholangiocarcino ma Expected: 08/07/2022 Iron deficiency anemia, (Jayda roximate), Expires: unspecified iron deficiency 02/06/2023 anemia type documented as of this encounter Visit Diagnoses Diagnosis Cholangiocarcinoma Malignant neoplasm of intrahepatic bile ducts Iron deficiency anemia, unspecified iron deficiency anemia type Hypomagnesemia Disorders of magnesium metabolism Colon cancer metastasized to liver Malignant neoplasm of colon, unspecified site documented in this encounter Care Teams Alignment Specialist Relationship Specialty Start Date End Date Harshal Godfrey MD PCP - General Family Medicine 02/18/22 [facility] [place] [address] documented as of this encounter
--- OUTSIDE RECORDS SUMMARY | 2022-08-21 01:34 | XMS_ITS | Encounter Summary ---
:1950 Author Organization [facility] [place] [address] Care Team Providers Name Role Phone Harshal Godfrey MD Primary Care Provider [phone] Encounter Details Date Type Department Care Team Description 07/10/2022 Office Visit Hematology/Oncology Reddy Hernandez, Cholangiocarcinoma; at [facility] Drug-induced nausea and vomiting [address] [place] [phone] ONCOLOGY [phone] [place] [id number] Social History Tobacco Use Types Packs/Day Years [...] place to sleep or slept in a senior care (including now)? Sex Assigned at Date Recorded Not on file documented as of this encounter Last Filed Vital Signs Vital Sign Reading Time Taken Comments Blood Pressure 140/71 07/10/2022 9:59 AM EDT Pulse 104 07/10/2022 9:59 AM EDT Temperature 36.3 ??C (97.3 ??F) 07/10/2022 9:59 AM EDT Respiratory Rate 18 07/10/2022 9:59 AM EDT Oxygen Saturation 93% 07/10/2022 9:59 AM EDT Inhaled Oxygen Concentration - - Weight 96.5 kg (212 lb 12.8 oz) 07/10/2022 9:59 AM EDT Height 147.3 cm (4' 9.99) 07/10/2022 9:59 AM EDT Body Mass Index 44.49 07/10/2022 9:59 AM EDT documented in this encounter Progress Notes Reddy Hernandez MD - 07/10/2022 10:00 AM EDT Subjective Patient ID: Marcelle Conner [...] unknown primary. The history is summarized above. Her daughter Ailyn is on the phone. She continues to feeling generally well with no new complaints. 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 Behavior: Behavior normal. Labs: WBC/ANC - 11.01/9020, Hgb/Hct - 11.9/42.7, Plts - 286,000. BUN/Cr - 19/1.0. Lytes and LFTs unremarkable Tsh - 1.55, FT4 - 1.44. CA 19-9 06/16/22 843 AFP 06/16/22 2.1 Assessment and [...] quite upsetting for her. Again, based on [facility] discussion today, this is not felt to be the case. I willsee what the opinion is at [facility]. I did speak with Dr. Mitchell about the lung findings. Given the pathology result, the likelihood is that the findings in the chest are related to the underlying malignancy. If it is felt that it would drying rack changer, ie make the difference between resectable vs [...] implants, increased upper abdominal and thoracic adenopathy. We plan to begin therapy with gemcitabine/cisplatin.duvalumab today. We reviewed some of the potential side effects of therapy again today. She is planning a second opinion at [facility]. This is scheduled for 07/23/22. Marcelle spoke with them and their suggestion was to go ahead and get treatment started. We will see her next week for consideration of day 8 therapy. documented in this encounter Plan of Treatment Upcoming Encounters Date Type Specialty Care Team Description 08/21/2022 Scheduled View Only Hematology and Dameon Hernandez MD [facility] [place] [address] Oncology Nikky Pak [address] [place] [address] 08/21/2022 TH Visit (TeleHealth) Hematology and Reddy Hernanedz Oncology [facility] [address] [place], [place] [address] (Wo leslee) 08/21/2022 Infusion Hematology and Oncology 08/28/2022 Office Visit Hematology and Reddy Hernandez Oncology [facility] [address] [place], [place] [address] (Wo rk) 08/28/2022 Infusion Hematology and Oncology 09/11/2022 Office Visit Hematology and Reddy Hernandez MD [facility] [place] [address] Oncology [address] Pak[address] HEMATOLOGY AND [place], [place] [phone] 09/11/2022 Infusion Hematology and Oncology 09/18/2022 Office Visit Hematology and Nikky Pak, Oncology [address] HEMATOLOGY AND [place], [place] [phone] (Wo rk) 09/18/2022 Infusion Hematology and Oncology 03/10/2023 Office Visit Cardiology Ofelia Rubalcava MD [facility] [address] [place], [place] [address] (Wo rk) documented as of this encounter Visit Diagnoses Diagnosis Cholangiocarcinoma Malignant neoplasm of intrahepatic bile ducts Drug-induced nausea and vomiting Nausea with vomiting Colon cancer metastasized to liver Malignant neoplasm of colon, unspecified site documented in this encounter Care Teams Community Service Worker Relationship Specialty Start Date End Date Harshal Godfrey MD PCP - General Family Medicine 02/18/22 [facility] [place] [address] documented as of this encounter
--- OUTSIDE RECORDS SUMMARY | 2022-08-21 01:35 | XMS_ITS | Encounter Summary ---
:1950 Author Organization [facility] [place] [address] Care Team Providers Name Role Phone Harshal Godfrey MD Primary Care Provider [phone] Encounter Details Date Type Department Care Team Description 05/27/2022 Hospital Encounter Gastroenterology at [facility] Rojas Donald [facility] [place] [address] [place] [address] [facility] GASTRO[facility]Y [place], [place] [address] Social History Tobacco Use Types Packs/Day Years [...] place to sleep or slept in a snf (including now)? Sex Assigned at Date Recorded Not on file documented as of this encounter Last Filed Vital Signs Vital Sign Reading Time Taken Comments Blood Pressure 111/58 05/27/2022 9:20 AM EDT Pulse 85 05/27/2022 8:25 AM EDT Temperature 36.1 ??C (97 ??F) 05/27/2022 7:06 AM EDT Respiratory Rate 18 05/27/2022 9:20 AM EDT Oxygen Saturation 93% 05/27/2022 9:30 AM EDT Inhaled Oxygen Concentration - - Weight 98 kg (216 lb) 05/27/2022 7:06 AM EDT Height 147.3 cm (4' 10) 05/27/2022 7:06 AM EDT Body Mass Index 45.14 05/27/2022 7:06 AM EDT documented in this encounter Discharge Instructions Discharge InstructionsLen Guerrero RN - 05/27/2022 8:30 AM EDT Endoscopic Ultrasound (Oral): What to Expect At Home Your Recovery After you have an endoscopic ultrasound--a test to look for problems in the stomach, liver, gallbladder, and other organs--you will stay at the hospital or clinic for 1 to 2 hours. This will allow the medicine to wear off. You will be able to go home after your doctor or nurse checks to make sure you are not having any problems. You may have a sore throat for a day or two after the test. This care sheet gives you a general idea about what to expect after the test. How can you care for yourself at home? Activity Rest when you feel tired. You can do your normal activities when it feels okay to do so. Diet Follow your doctor's directions for eating. Unless your doctor has told you not to, drink plenty of fluids. Do not drink alcohol. Medicines Your doctor will tell you if and when you can restart your medicines. He or she will also give you instructions about taking any new medicines. If you take blood thinners, such as warfarin (Coumadin), clopidogrel (Plavix), or aspirin, be sure to talk to your doctor. He or she will tell you if and when to start taking those medicines again. Make sure that you understand exactly what your doctor wants you to do. If a biopsy was done during the test, your doctor may tell you not to take aspirin or other anti-inflammatory medicines for a few days. These include ibuprofen (Advil, Motrin) and naproxen (Aleve). If you have a sore throat the day after the procedure, use an xcwr-jhr-avznqka spray to numb your throat. Sucking on throat lozenges and gargling with warm salt water may also help relieve your symptoms. Other instructions For your safety, do not drive or operate machinery until the medicine wears off and you can think clearly. Your doctor may tell you not to drive or operate machinery until the day after your test. Do not sign legal documents or make major decisions until the medicine wears off and you can think clearly. The anesthesia can make it hard for you to fully understand what you are agreeing to. Additional Information for Sedation Patients For patients who received sedation: You may have received medications before and/or during your procedure which effects your judgement and reaction time. Do not drive, operate machinery, drink alcoholic beverages or make important decisions for 24 hours. Be careful on stairs as you may be unsteady on your feet. You may eat a regular diet as tolerated. Do not smoke if you are alone. IV site: Slight redness or tenderness is normal, you can use a warm compress if you would like. If tenderness and/or redness increase or if foul drainage occurs, please contact your Doctor. Please call [phone] before 8pm Mon-Fri with problems, questions or concerns. If you call after 8pm or on weekends, call the Hospital at [phone] and ask to speak to the Ignition Mechanic section leader screen printing and the skiver operator will contact that person for you. When should you call for help? Call [phone] anytime you think you may need emergency care. For example, call if: You passed out (lost consciousness). You pass maroon or bloody stools. You have trouble breathing. Call your doctor now or seek immediate medical care if: You have pain that does not get better after you take pain medicine. You are sick to your stomach or cannot drink fluids. You have new or worse belly pain. You have blood in your stools. You have a fever. You cannot pass stools or gas. Watch closely for changes in your health, and be sure to contact your doctor if you have any problems. Where can you learn more? [facility] View your After Visit Summary and more online at [email or web address] If you would like to provide feedback about your hospital experience, please call the Office of Patient and Family Relations at . If you have received this After Visit Summary in error, please immediately return it in person to the department, or notify the [facility] Privacy Office by calling toll free at between the hours of 8AM and 5PM to arrange for our retrieval of the documents at no cost to you. Content Version: 12.2 ?? [id number] [employer]. Care instructions adapted under license by [facility]. If you have questions about a medical condition or this instruction, always ask your healthcare professional. [employer] disclaims any warranty or liability for your use of this information. documented in this encounter Medications at Time of Discharge Medication Sig Dispensed Refills Start Date End Date clopidogreL (Plavix) 75 Take 1 tablet by 90 tablet 3 202104/05/2023 mg Tablet mouth daily for 360 days. acetaminophen (Tylenol) Take 2 tablets by 0 04/08 500 mg Tablet mouth every 6 hours as needed for Pain. amoxicillin (Amoxil) 500 Take 4 capsules by 0 03/2022 mg Capsule mouth as needed. Take 4 tablets, 2000mg, 1 hour before dental procedures. nystatin (MYCOSTATIN) Apply 1 Application 0 11/30 100,000 unit/gram Powder topically daily as needed. PRN diphenhydrAMINE Take 50 mg by mouth 0 (Benadryl) 25 mg Capsule nightly as needed for Itching. vit A/C/E ac/ZnOx/cupric Take 1 tablet by 0 oxide (EYE VITAMIN AND mouth 2 times daily. MINERALS ORAL) [facility] citalopram (CeleXA) 20 mg Take 20 mg by mouth 0 0 03/13/2021 Tablet daily. simvastatin (ZOCOR) 20 mg Take 20 mg by mouth 0 tablet nightly. metFORMIN (GLUCOPHAGE) Take 500 mg by mouth 0 500 mg tablet 2 times daily (with meals). aspirin 81 mg EC tablet Take 81 mg by mouth 0 daily. metoproloL tartrate Take 0.5 tablets by 30 tablet 3 022 08/05/2022 (Lopressor) 25 mg Tablet mouth 2 times daily. dextromethorphan-guaiFENe Take 5 mLs by mouth 0 0 04/08/2022 07/10/2022 sin (Robitussin) 10-100 3 times daily as mg/5 mL Syrup needed for Cough. ProChamber Spacer Inhale 1 Package 0 12/22/2021 1 into the lungs every 6 hours as needed. multivitamin (THERAGRAN) Take 1 tablet by 0 07/10/2022 Tablet mouth daily. albuteroL 90 Inhale 2 puffs into 0 04/2022 mcg/actuation HFA Aerosol the lungs every 4 Inhaler hours as needed for Wheezing. Use with spacer documented as of this encounter H&P Notes Freddy Ku MD - 05/27/2022 7:06 AM EDT Procedure: EUS Indication: Liver masses and mediastinal lymphadenopathy History of Present Illness: Marcelle Conner is a 72 y.o. 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 Patient Active Problem List Diagnosis Code ??? Dermatitis L30.9 ??? Diabetes mellitus E11.9 ??? Hypertension I10 ??? SOB (shortness of breath) R06.02 ??? Bradycardia R00.1 ??? Left atrial dilation I51.7 ??? Aortic stenosis, severe I35.0 ??? CAD (coronary artery disease) I25.10 ??? S/P AVR (aortic valve replacement) and aortoplasty and CABG Z95.2 ??? Class 3 severe obesity in adult E66.01 ??? Pulmonary hypertension I27.20 ??? Mediastinal lymphadenopathy, abnormal findings right and left liver lobes, numerous very small pulmonary nodules R59.0 ??? Lymphadenopathy R59.1 ??? Pulmonary nodules R91.8 Medications: Reviewed in EDH No Known Allergies Social History/Family History: Reviewed in EDH. No changes Exam: No data found. Axox3, nad Anicteric, MMM CTAB RRR, no m/r/g abd soft nt nd +bs Assessment and Plan: Proceed with EUS: ASA Grade: ASA 3 - Patient with moderate systemic disease with functional limitations Mallampati score:II (soft palate, uvula, fauces visible) Sedation plan: MAC Risks extensively discussed including bleeding, infection, reaction to anesthesia, perforation, pancreatitis (if applicable), bile duct injury (if applicable), missing a cancer (if applicable) and/or other unforseen complication. Consent has been signed. Freddy Ku MD documented in this encounter Plan of Treatment Upcoming Encounters Date Type Specialty Care Team Description 08/21/2022 Scheduled View Only Hematology and Dameon Hernandez MD [facility] [place] [address] [address] [place] [address] 08/21/2022 TH Visit (TeleHealth) Hematology Reddy Young Oncology [facility] [address] [place], [place] [address] (Wo rk) 08/21/2022 Infusion Hematology and Oncology 08/28/2022 Office Visit Hematology Reddy Yonug Oncology [facility] [address] [place], [place] [address] (Wo rk) 08/28/2022 Infusion Hematology and Oncology 09/11/2022 Office Visit Hematology and Reddy Hernandez MD [facility] [place] [address] On[address] HEMATOLOGY AND [place], [place] [id number] 09/11/2022 Infusion Hematology and Oncology 09/18/2022 Office Visit Hematology and LaRNikky stallworth, Oncology [address] HEMATOLOGY AND [place], [place] [id number] (Wo rk) 09/18/2022 Infusion Hematology and Oncology 03/10/2023 Office Visit Cardiology Ofelia Rubalcava MD [facility] [address] [place], [place] [address] (Wo rk) documented as of this encounter Procedures Procedure Name Priority Date/Time Associated Comments Diagnosis SOLID TUMOR NGS PANEL Routine 05/27/2022 8:17 AM EDT NON-SOUND RECORDING TECHNICIAN FINAL REPORT Routine 05/27/2022 8:17 AM R esults for this EDT procedure are i n the results section. CYTOPATHOLOGY Routine 05/27/2022 8:17 AM Results for this NON-GYNECOLOGICAL EDT procedure are in the results section. FINE NEEDLE ASPIRATION 05/27/2022 7:50 AM Liver mass BIOPSY, INC US EDT GUIDANCE; FIRST LESION UPPER EUS- ENDOSCOPIC 05/27/2022 7:50 AM Liver mass ULTRASOUND EDT UPPER EUS-ENDOSCOPIC Routine 05/27/2022 6:58 AM R esults for this ULTRASOUND EDT procedure are i n the results section. documented in this encounter Results Solid Tumor NGS Panel (05/27/2022 8:17 AM EDT) Specimen Anatomical Collection Method Collection Time Receive d Time (Source) Location / / Volume Laterality Tissue 05/27/2022 8:17 AM 5:44 EDT PM EDT Resulting Agency Comment Spec In Lab Rojas Donald MD PATHOLOGY/CYTOLOGY ORDERABLE S Performing Organization Address City/State/ZIP Code Phon [place] [address] Non-Special Police Officer Final Report (05/27/2022 8:17 AM EDT) Component Value Ref Test Analysis Performed At [facility] Range Method Time Signature Non-Special Police Officer [id number] ? Location: 4T; EA09; A OFELIA Final Report NAHUN The signing pathologist has (i) examined the relevant preparation(s) for the [facility] specimen(s) and (ii) rendered or confirmed the [...] The assay was performed according to the senior litigation paralegal's instructions using anti-MLH -1 (ES05), anti-MSH-2 ([id number]), anti-MSH-6 (44), and anti-PMS-2 (MRQ-28) antibodies. Electronically signed by: ?Armando Sandoval MD Verified: ??06/30/2022 12:27 ??Pathologist Performed at: ??-[facility] Dept. of Pathology, [place], [place] ? No n-Special Police Officer Final DIAGNOSIS Positive for Malignancy Electronically signed by: ?José Miguel De Paz MD Verified: ??06/06/2022 14:55 ??Cytopathologist Performed at: ??-[facility] Dept. 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 Note: The immunoperoxidase stain results do not specify a pr imary site. Recommend clinical correlation. Dr. Silva reviewed this case and concurs with the keila nosis. --- Immunohistochemistry Studies --- Interpretation: ? [...] Organization Address City/State/ZIP [place] [address] [facility] [address] Cytopathology Non-Gynecological (05/27/2022 8:17 AM EDT) Specimen Anatomical Collection Method Collection Time Receive d Time (Source) Location / / Volume Laterality AP Specimen 05/27/2022 8:17 AM 8:17 EDT AM EDT Narrative [facility] - 05/27/2022 8:17 AM EDT Specimen requisition ordered. ??Separate Pathology report to follow Rojas Donald MD PATHOLOGY/CYTOLOGY ORDERABLE S Performing Organization Address City/State/[place] [address] UPPER EUS-ENDOSCOPIC ULTRASOUND (05/27/2022 6:58 AM EDT) Component Value Ref Test Analysis Performed At [facility] Method Time Signature UPPER [facility] [employer] ENDOSCOPIC Endoscopy ULTRASOUND _ Procedure Date: 05/27/2022 6:58 AM ? Patient Name: Marcelle Conner ? Date of : 1950 ? Age: 72 ? Order #: [id number] ? Instrument Name: [id number] ? Procedure: ? Upper EUS Indications: ? Suspected mass in liver on MRI Providers: ? Rojas Donald MD, Freddy hBagat. ? [place], Betty Ravi, Ovidio Villafana. ? Sheryl, Custodial Operations Manager Referring : ?Harshal Godfrey Medicines: ? Monitored [...] w as ? introduced through the gallo , and ? advanced to the third part [...] Address City/State/ZIP Code Phon e Number [employer] documented in this encounter Visit Diagnoses Not on filedocumented in this encounter Administered Medications Inactive Administered Medications - up to 3 most recent administrations Medication Order MAR Action Action Date Dose Rate Site lactated ringers infusion Restarted 05/27/2022 8:21 AM EDT 100 mL/hr, Intravenous, CONTINUOUS, Starting on Wed05/27/22 at 0730, Until Wed05/27/22 at 1219, Endoscopy (Day of Procedure) New Bag 05/27/2022 7:14 AM EDT 100 mL/hr 100 mL/hr documented in this encounter Active and Recently Administered Medications Times are shown in EDT. Continuous Medication Order 05/25/2022 05/26/2022 05/27/2022 lactated ringers infusion 0714 ( New Bag - Provider: Jennifer Thomas, KALIE)0820 (Paused - Provider: Trevor Barnes CRNA - Comment: Switch to gravity)0821 (Restarted - Provider: Trevor Barnes CRNA) 100 mL/hr, Intravenous, CONTINUOUS, Star ting on Wed05/27/22 at 0730, Until Wed05/27/22 at 1219, Endoscopy (Day of Procedure) documented in this encounter Care Teams Credit Correspondence Clerk Relationship Specialty Start Date End Date Harshal Godfrey MD PCP - General Family Medicine 02/18/22 [address] [place] [address] documented as of this encounter
--- OUTSIDE RECORDS SUMMARY | 2022-08-21 01:35 | XMS_ITS | Encounter Summary ---
:1950 Author Organization [facility] [place] [address] Care Team Providers Name Role Phone Harshal Godfrey MD Primary Care Provider Reason for Referral Diagnostic Test (Routine) - Authorized Specialty Diagnoses / Procedures Referred By Contact Refer red To Contact Radiology Diagnoses Adenocarcinoma of unknown primary Reddy Hernandez MD Procedures CT Chest Abdomen Pelvis w Contrast (Generic) [facility] [place] [address] Referral ID Status Reason Start Expiration Visits Visits Date Date Requested Authorized [id number] Authorized Specialty 06/16/2022 12/15/2023 1 1 Service Requested Reason for Visit Reason Comments Establish Care Consultation (Routine) - Closed Specialty Diagnoses / Procedures Referred By Contact Refer red To Contact Hematology and Oncology Diagnoses Cholangiocarcinoma Rojas Donald Ripple, Gregory H, MD MD [facility] [address] [facility] [place] [address] Fax: Referral ID Status Reason Start Date Expiration Date Visits V isits Requested Authorized [id number] Closed Consult, 06/08/2022 06/08/2023 1 1 Test & Treat Encounter Details Date Type Department Care Team Description 06/16/2022 Office Visit Hematology and Ripple, Reddy Adenocarci noma of unknown primary; Oncology at [facility] MD Josse Cholangiocarcinoma; [facility] Liver marc or; [facility] Hepatocellular carcinoma; [place], [place] ONCOLOGY Microcytic anemia [id number] [place] [address] [phone] Social History Tobacco Use Types Packs/Day Years [...] place to sleep or slept in a detention (including now)? Sex Assigned at Date Recorded Not on file documented as of this encounter Last Filed Vital Signs Vital Sign Reading Time Taken Comments Blood Pressure 115/73 06/16/2022 11:20 AM EDT Pulse 62 06/16/2022 11:20 AM EDT Temperature 35.9 ??C (96.6 ??F) 06/16/2022 11:20 AM EDT Respiratory Rate 17 06/16/2022 11:20 AM EDT Oxygen Saturation 94% 06/16/2022 11:20 AM EDT Inhaled Oxygen Concentration - - Weight 99.7 kg (219 lb 12.8 oz) 06/16/2022 11:20 AM EDT Height 147.3 cm (4' 9.99) 06/16/2022 11:20 AM EDT Body Mass Index 45.95 06/16/2022 11:20 AM EDT documented in this encounter Progress Notes Reddy Hernandez MD - 06/16/2022 11:00 AM EDT Subjective Patient ID: Marcelle Conner is 72 y.o. Problem List: 1. Carcinoma of unknown primary ??A. CT chest 03/23/22 - IMPRESSION Moderate [...] specify a primary site. Recommend clinical correlation. E. Liver tumor conference - given extent of disease with multifocal liver disease and intra-abdominal adenopathy, this is considered unresectable. Chest finding also considered suspicious for metastatic disease. Mediastinal LN could be biopsied if needed. F. GITB 06/23/22 - 2. Severe aortic stenosis??and coronary artery disease?? [...] The history is summarized above. Marcelle is accompanied to clinic today by her daughter Ailyn. She is feeling pretty well. She has a lot of fatigue, about the same. She lives with a daughter and Ailyn lives right next door. She managespretty well overall. She takes about an hour nap each day, but does things around the house such as cooking and goes shopping. Her breathing is better than it was prior to the cardiac surgery but it still limits how far she can walk. No pain. Her appetite is good. She denies weight loss. No numbness or tingling in her hands or feet. Her bowels are regular. No melena or BRBPR. Her DM is well controlled. 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 Behavior: Behavior normal. Assessment and Plan Marcelle Conner is 72 [...] case was discussed at Liver Tumor Clinic today. Given the extent of disease in the liver and theintra-abdominal adenopathy, this is not considered resectable. Given that she is asymptomatic, liverdirected therapies were not recommended. It was recommended that we check an AFP and that will be added to today's labs. Pathology was not present for LTC and I will plan to discuss at [facility] next week and review with pathology. When I discussed the advanced nature of the cancer with the patient and her daughter, this came as ashock to them as they were under the impression that this was contained and resectable. This was quite upsetting for her. Again, based on LTC discussion today, this is not felt to be the case. I willsee what the opinion is at [facility]. I did speak with Dr. Backer about the lung findings. Given the pathology result, the likelihood is that the findings in the chest are related to the underlying malignancy. If it is felt that it would pipe changer, ie make the difference between resectable vs unresectable disease, he would be willing to biopsy the LN via EBUS. I will get a baseline CT of the chest, abd, pelvis and plan to discuss at tumor board next week. If systemic therapy is the primary, then one could consider gemcitabine/cisplatin and durvalumab as for cholangiocarcinoma or perhaps atezolizumab/melody as for HCC. Further decisions will be made after tumor board discussion.. I have asked for additional studies on the pathology, including IHC for MMR proteins and NGS studies. Labs will be drawn today for baseline cbc, cmp, Ca 19-9 and AFP. Addendum: I called pt to go over the tumor board discussion and my discussion with Dr. Esqueda. While Dr. Carrillo at Tumor Board felt the liver lesions were technically resectable, Dr. Esqueda disagreed and felt they were unresectable. He also noted that in pts with multiple other liver lesions, the prognosis/out come with surgery is generally very poor and his recommendation was for systemic therapy. There was general agreement with an approach of systemic therapy with gemcitabine/cisplatin and durvalumab. This was discussed with Marcelle. She understands the above and may be willing to go ahead with chemotherapy. We have an appt scheduled for this Wednesday and are trying to get a CT scan scheduled before that. It is not scheduled yet and if it can't be done before that, we may have to reschedule. documented in this encounter Plan of Treatment Upcoming Encounters Date Type Specialty Care Team Description 08/21/2022 Scheduled View Only Hematology and Dameon Hernandez MD [facility] [address] Oncology Nikky Pak MANAGER ENTRY [address] [place] [address] [place] [address] 08/21/2022 TH Visit (TeleHealth) Hematology and Reddy Hernandez Oncology [facility] [address] [place], [place] [address] (Wo rk) 08/21/2022 Infusion Hematology and Oncology 08/28/2022 Office Visit Hematology and Reddy Hernandez, Oncology [facility] DR [address] [place], [place] [address] (Wo rk) 08/28/2022 Infusion Hematology and Oncology 09/11/2022 Office Visit Hematology and Reddy Hernandez MD [facility] [place] [address] Oncology [facility] Gilbert[facility]ky stallworth[address] HEMATOLOGY AND [place], [place] [phone] 09/11/2022 Infusion Hematology and Oncology 09/18/2022 Office Visit Hematology and Nikky Pak, Oncology [address] HEMATOLOGY AND [place], [place] [address] (Wo rk) 09/18/2022 Infusion Hematology and Oncology 03/10/2023 Office Visit Cardiology Ofelia Rubalcava MD [facility] Dr [place], [place] [address] (Wo rk) Scheduled Orders Name Type Priority Associated Diagnoses Order S chedule Specimen to Pathology Pathology/Cytolo Routine Adenocarcinoma of Ordered: Additional Testing gy unknown primary 2021 Specimen to Pathology Pathology/Cytolo Routine Adenocarcinoma of Ordered: Additional Testing gy unknown primary 2021 CT Chest Abdomen Imaging Routine Adenocarcinoma of Expect ed: Pelvis w Contrast unknown primary 022 (Generic) (Approximate), Expires: 12/23/2022 CBC (with Diff) Lab Routine Adenocarcinoma of Expecte d: unknown primary 06/30/2022 (Approximate), Expires: 06/16/2023 Comprehensive Lab Routine Adenocarcinoma of Expected: metabolic panel unknown primary 2 (non-fasting) (Approximate), Expires: 06/16/2023 documented as of this encounter Results (ABNORMAL) Carbohydrate Antigen 19-9 (06/16/2022 12:15 PM EDT) athologist Signature CA 19-9 843.0 (H) <=35.0 [facility] u/ml [facility] Comment: This result was generated using [...] Hernandez MD CHEMISTRY ORDERABLES Performing Organization Address City/State/[place] [address] (ABNORMAL) Comprehensive metabolic panel (non-fasting) (06/16/2022 12:15 PM EDT) athologist Signature Glucose Lvl 96 65 - 199 [facility] mg/dL [facility] Comment: Diabetes: >=200 mg/dL plus symp toms BUN 24 (H) 8 - 18 mg/dL [facility] Creatinine 0.97 0.70 - 1.20 mg/dL [facility] Sodium 138 135 - 145 mmol/L [facility] Potassium 4.6 3.5 - 5.0 mmol/L [facility] Comment: Please note: ??Patients with WBC >100,00 0 may have falsely elevated Potassium levels. ??For accurate Potassium quantif ication in these patients send serum separator tube (gold top) for subsequent determinations. ??Contact the Clinical Chemistry Laboratory if there are any qu estions. Chloride 103 98 - 107 mmol/L [facility] CO2 25 22 - 31 mmol/L [facility] Anion Gap 10 5 - 15 mmol/L [facility] Calcium 9.1 8.5 - 10.5 mg/dL [facility] Total Protein 6.9 6.1 - 8.0 g/dL [facility] Albumin 3.9 3.2 - 5.2 g/dL [facility] AST 23 0 - 30 unit/L [facility] ALT 12 0 - 30 unit/L [facility] Alk Phos 71 35 - 105 unit/L [facility] Total Bilirubin 0.3 0.2 - 1.3 mg/dL [facility] Estimated GFR 62 >=60 mL/min/1.73 m?? [facility] Comment: This patient's estimated GFR [...] Hernandez MD CHEMISTRY ORDERABLES Performing Organization Address City/State/[place] [address] documented in this encounter Visit Diagnoses Diagnosis Adenocarcinoma of unknown primary Other malignant neoplasm without specifi cation of site Cholangiocarcinoma Malignant neoplasm of intrahepatic bile ducts Liver tumor Neoplasm of unspecified nature of digest tonia system Hepatocellular carcinoma Malignant neoplasm of liver, primary Microcytic anemia Iron deficiency anemia, unspecified Colon cancer metastasized to liver Malignant neoplasm of colon, unspecified site documented in this encounter Care Teams Fruit Or Nut Crops Farm Manager Relationship Specialty Start Date End Date Harshal Godfrey MD PCP - General Family Medicine 02/18/22 [address] [place] [address] documented as of this encounter
--- OUTSIDE RECORDS SUMMARY | 2022-08-21 01:35 | XMS_ITS | Encounter Summary ---
:1950 Author Organization [facility] [place] [address] Care Team Providers Name Role Phone Harshal Godfrey MD Primary Care Provider [phone] Encounter Details Date Type Department Care Team Description 05/19/2022 Telephone Gastroenterology at [facility] [place] [address] Social History Tobacco Use Types Packs/Day Years [...] this encounter Miscellaneous Notes Telephone Encounter - FarshadJanuary - 05/19/2022 9:33 AM EDT Marcelle Conner [id number] Diagnosis/Indication: REQUEST: Discussed wtih Dr. Cardoza/Sal on 05/15/22 (they agreed to urgent EUS) - patient with livermass on MR abdomen in need for EUS and continued work-up. Please review patient chart to confirm if previous Endoscopy procedure was performed within system. If yes, take note of Anesthesia type used. If previous procedure found, and with MAC/propofol Anesthesia support was used, schedule this procedure with Anesthesia and skip the Anesthesia portion of qu estions. If not performed within system, not performed at all, or performed with IVCS, ask Anesthesia questions. SCHEDULING QUESTIONS (ask all patient these questions) 1. Have you ever had a/an Upper EUS before? No If yes, did you have any problems with the procedure (such as waking up during the procedure, pain or difficulties afterwards, etc.)? No What type of sedation was used: None 2. Do you take any blood thinners or have you been diagnosed with a bleeding disorder that increasesyour risk of bleeding with procedures? Yes: Type: plavix 3. Do you have a Pacemaker or Defibrillator device? If yes, send pool message to Cardiology with patient information and date or procedure. No 4. Are you a diabetic? If yes, call PCP/managing provider to discuss use of prep and any questions or concerns related to. Yes: Controlled by diet or medication? Both 5. Do you take any iron supplements or vitamins that contain iron? No 6. Do you have a preference regarding the gender of your provider? No ANESTHESIA QUESTIONS (YES to any question, please book with Anesthesia support) 7. Have you ever been diagnosed with any of the following: Pulmonary Hypertension, Atrial Fibrillation (A-Fib) and/or Congential Heart Disease? No 8. Have you ever had an allergic or adverse reaction to Fentanyl or Versed? No 9. Have you had a problem with sedation or anesthesia? (Waking up during procedure, extreme confusion after, etc.) No 10. Do you have a diagnosis of Obstructive Sleep Apnea? No 11. Do you use a c-pap machine? Neither 12. Do you use an oxygen tank at home? No 13. Do you use a rescue inhaler more than twice per day? (COPD, severe asthma) No 14. Do you experience breathing problems when you lay flat for a period of time? No 15. Do you take prescription narcotic pain medications, including suboxone or methodone? No SCHEDULING CONFIRMATIONS: Please note any and all parts of your conversation with the patient here. 16. We offer all new patients an opportunity to have an appointment with one of our associate care providers to learn more about your upcoming procedure, ask questions and get answers. These appointments are offered via telehealth. Would you be interested in scheduling this appointment? (Only ask if NEW referral patient; skip this question if DH GI provider ordered the procedure.) No 17. Is there any other information or concerns you would like to us to share with your care team in relation to your upcoming scheduled procedure? No 18. You must have a responsible constitution party who will drive you to your procedure, stay on campus for the entire duration of your procedure, and drive you home from your procedure. Who will likely be your security patrol driver for the procedure? *Please Verify the height and weight, and adjust if height and/or weight have changed* Estimated body mass index is 46.71 kg/m?? as calculated from the following: Height as of 05/15/22: 147.3 cm (4' 10). Weight as of 05/15/22: 101.4 kg (223 lb 8 oz). Age:72 y.o. documented in this encounter Plan of Treatment Upcoming Encounters Date Type Specialty Care Team Description 08/21/2022 Scheduled View Only Hematology and Dameon Hernandez MD [facility] [place] [address] Oncology Nikky Pak, PRODUCTION HAND [address] [place] [address] [place] [address] 08/21/2022 TH Visit (TeleHealth) Hematology and Reddy Hernandez , Oncology [facility] [place], [place] [address] (Wo rk) 08/21/2022 Infusion Hematology and Oncology 08/28/2022 Office Visit Hematology and Reddy Hernandez Oncology [facility] [address] [place], [place] [address] (Wo rk) 08/28/2022 Infusion Hematology and Oncology 09/11/2022 Office Visit Hematology and Reddy Hernandez MD [facility] [place] [place] [address] Oncology Nikky Pak[address] [place] [address] 09/11/2022 Infusion Hematology and Oncology 09/18/2022 Office Visit Hematology and Nikky Pak, Oncology [address] HEMATOLOGY AND [place], [place] [address] (Wo rk) 09/18/2022 Infusion Hematology and Oncology 03/10/2023 Office Visit Cardiology Ofelia Rubalcava MD [facility] [address] [place], [place] [address] (Wo rk) documented as of this encounter Visit Diagnoses Not on filedocumented in this encounter Care Teams Cloth Picker Relationship Specialty Start Date End Date Harshal Godfrey MD PCP - General Family Medicine 02/18/[address] [place] [id number] documented as of this encounter
--- OUTSIDE RECORDS SUMMARY | 2022-08-21 01:35 | XMS_ITS | Encounter Summary ---
:1950 Author Organization [facility] [place] [address] Care Team Providers Name Role Phone Harshal Godfrey MD Primary Care Provider Encounter Details Date Type Department Care Team Description 04/23/2022 Telephone Pulmonology at [facility] [place] [address] Social History Tobacco Use Types Packs/Day [...] place to sleep or slept in a assisted (including now)? Sex Assigned at Date Recorded Not on file documented as of this encounter Plan of Treatment Upcoming Encounters Date Type Specialty Care Team Description 08/21/2022 Scheduled View Only Hematology and Dameon Hernandez MD [facility] [place] [address] [address] Pak[address] HEMATOLOGY AND [place], [place] [phone] 08/21/2022 TH Visit (TeleHealth) Hematology Reddy Young Oncology [facility] [address] [place], [place] [address] (Wo rk) 08/21/2022 Infusion Hematology and Oncology 08/28/2022 Office Visit Hematology and Reddy Hernandez Oncology [facility] [address] [place], [place] [address] (Wo rk) 08/28/2022 Infusion Hematology and Oncology 09/11/2022 Office Visit Sharon and Reddy Hernandez MD [facility] [place] [place] [address] [address] [place], [place] [phone] 09/11/2022 Infusion Hematology and Oncology 09/18/2022 Office Visit Hematology and Nikky Pak, Oncology [address] [place], [place] [phone] (Wo rk) 09/18/2022 Infusion Hematology and Oncology 03/10/2023 Office Visit Cardiology Ofelia Rubalcava MD [facility] [address] [place], [place] [address] (Wo rk) documented as of this encounter Visit Diagnoses Not on filedocumented in this encounter Care Teams Small Engine Technician Relationship Specialty Start Date End Date Harshal Godfrey MD PCP - General Family Medicine 02/18/22 [facility] [place] [address] documented as of this encounter
--- OUTSIDE RECORDS SUMMARY | 2022-08-21 01:35 | XMS_ITS | Encounter Summary ---
:1950 Author Organization [facility] Address [facility] [place] [address] Care Team Providers Name Role Phone Harshal Godfrey MD Primary Care Provider [phone] Encounter Details Date Type Department Care Team Description 06/09/2022 Telephone Gastroenterology at [facility] Rojas Donald, [facility] [place] [address] [facility] [phone] GASTROENTEROLOGY [place] [phone] (Wo rk) Social History Tobacco Use Types [...] place to sleep or slept in a correction (including now)? Sex Assigned at Date Recorded Not on file documented as of this encounter Miscellaneous Notes Telephone Encounter - Rojas Donald MD - 06/09/2022 9:18 AM EDT I was able to finally speak to Marcelle today and discuss her pathology results. Referrals made to livertumor clinic and medical oncology. documented in this encounter Plan of Treatment Upcoming Encounters Date Type Specialty Care Team Description 08/21/2022 Scheduled View Only Dameon Thompson MD [facility] [place] [address] Oncology Nikky Pak[address] [place] [address] 08/21/2022 TH Visit (TeleHealth) Reddy Thompson Oncology [facility] [address] [place], [place] [address] (Wo rk) 08/21/2022 Infusion Hematology and Oncology 08/28/2022 Office Visit Reddy Thompson Oncology [facility] [address] [place], [place] [address] (Wo rk) 08/28/2022 Infusion Hematology and Oncology 09/11/2022 Office Visit Reddy Thompson MD [facility] [place] [address] Oncology Nikky Pak[address] HEMATOLOGY AND [place], [place] [address] 09/11/2022 Infusion Hematology and Oncology 09/18/2022 Office Visit Hematology and LaRNikky stallworth, Oncology [address] HEMATOLOGY AND [place], [place] [phone] (Wo rk) 09/18/2022 Infusion Hematology and Oncology 03/10/2023 Office Visit Cardiology Ofelia Rubalcava MD [facility] [address] [place] [address] (Wo rk) documented as of this encounter Visit Diagnoses Not on filedocumented in this encounter Care Teams Radio Survey Worker Relationship Specialty Start Date End Date Harshal Godfrey MD PCP - General Family Medicine 02/18/[address] [place] [address] documented as of this encounter
--- OUTSIDE RECORDS SUMMARY | 2022-08-21 01:35 | XMS_ITS | Encounter Summary ---
:1950 [place] [address] Care Team Providers Name Role Phone Harshal Godfrey MD Primary Care Provider [phone] Encounter Details Date Type Department Care Team Description 06/29/2022 Ancillary Procedure Radiology Library at [facility], Elpidio Loaiza [facility] [place] [address] ONCOLOGY [phone] [place], [place] [address] (Wo rk) Social History Tobacco Use Types [...] Hematology and Dameon Hernandez MD [facility] [place] [address] [address] HEMATOLOGY AND [place], [place] [phone] 08/21/2022 TH Visit (TeleHealth) Hematology and Reddy Hernandez Oncology [facility] [address] [place] [place], [place] [address] (Wo rk) 08/21/2022 Infusion Hematology and Oncology 08/28/2022 Office Visit Hematology Reddy Young Oncology [facility] [address] [place], [place] [address] (Wo rk) 08/28/2022 Infusion Hematology and Oncology 09/11/2022 Office Visit Reddy Thompson MD [facility] [place] [address] On[address] Pak[address] HEMATOLOGY AND [place], [place] [phone] 09/11/2022 Infusion Hematology and Oncology 09/18/2022 Office Visit Hematology and Nikky Pak A, Oncology [address] [place], [place] [address] (Wo rk) 09/18/2022 Infusion Hematology and Oncology 03/10/2023 Office Visit Cardiology Ofelia Rubalcava MD [facility] [place] [address] (Wo rk) documented as of this encounter Procedures Procedure Name Priority Date/Time Associated Diagnosis Comme nts FILM LIBRARY Routine 06/29/2022 12:00 AM Results for this STORAGE ONLY CT EDT procedure ar e in CHEST ABDOMEN the results PELVIS section. documented in this encounter Results Film Library- Storage Only CT Chest Abdomen Pelvis (06/29/2022 12:00 AM EDT) Specimen (Source) Anatomical Location Collection Method / Collectio n Time Received Time / Laterality Volume Narrative RAD - 06/30/2022 10:50 AM EDT This exam is auto-finalizing. It's purpo se is for storage only. Reddy Hernandez MD IMPurvi FILM LIBRARY ORDERABLES Performing Organization Address City/State/ZIP Code Phon e Number [place], [place] documented in this encounter Visit Diagnoses Not on filedocumented in this encounter Care Teams Sole Stainer Relationship Specialty Start Date End Date Harshal Godfrey MD PCP - General Family Medicine 02/18/22 [address] [place] [address] documented as of this encounter
--- OUTSIDE RECORDS SUMMARY | 2022-08-21 01:35 | XMS_ITS | Encounter Summary ---
:1950 Author Organization [facility] [place] [address] Care Team Providers Name Role Phone Harshal Godfrey MD Primary Care Provider [phone] Encounter Details Date Type Department Care Team Description 05/27/2022 Anesthesia Event Gastroenterology at [facility] Narcisa Gilbert, [facility] [place] [address] [facility] [phone] ANESTHESIOLOGY [place], [place] [address] Anesthesia Record Procedure Summary Procedure Name Responsible Anesthesia Start Anesthesia Stop Anesthesiologist Time Time UPPER EUS- Narcisa Gilbert MD 05/27/22 0751 05/27/22 082 7 ENDOSCOPIC ULTRASOUND (Trunk) Events Date Time Event Comment 05/27/2022 0746 0751 AN Verify 0751 Start 0751 An Start Data 0752 An Induction 0753 Anesthesia Ready 0824 an stop data 0827 Recovery or ICU Handoff Patient care was transferred to the destination unit staff after review of the patient's medica l history, current anesthetic/surgi bud status and plan, according to the Provider Handoff Checklist. 0827 Stop Name Total Propofol 90 mg Propofol INF 414.05 mg Dexmedetomidine 12 mcg lactated ringers infusion 400 mL Agents Name O2 Air N2O O2 Auxiliary Flowmeter 1 Blood No blood administrations on file. Lines, Drains, and Airways Type Details Placement Removal PIV 05/27/22; 0714; metacarpal 05/27/22 0714 by Vicente peñaloza, 05/27/22 0948 by jordan Guerrero (top of hand), right; KALIE Rose RN wwga-dcd-rcevct catheter system; 22 gauge; 05/27/22; 0948 documented in this encounter Social History Tobacco Use Types Packs/Day Years [...] place to sleep or slept in a nursing home (including now)? Sex Assigned at Date Recorded Not on file documented as of this encounter OR Notes Anesthesia Postprocedure Evaluation - Narcisa Gilbert MD - 05/27/2022 9:38 AM EDT Department of Anesthesiology Post-procedure Note Patient: Marcelle Conner Procedure Summary Date: 05/27/22 Room / Location: [facility] ENDO 2 / [facility] ENDOSCOPY Anesthesia Start: 750 Anesthesia Stop: 826 Procedures: UPPER EUS- ENDOSCOPIC ULTRASOUND (N/A Trunk) FINE NEEDLE ASPIRATION BIOPSY, INC US GUIDANCE; FIRST LESION Diagnosis: Liver mass (Liver masses and mediastinal LNs) Surgeons: Rojas Donald MD Responsible Provider: Narcisa Gilbert MD Anesthesia Type: MAC ASA Status: 3 All Anesthesia Providers: Anesthesiologist: Narcisa Gilbert MD ROADWAY TECHNICIAN: Trevor Barnes CRNA Vitals Value Taken Time BP 111/58 05/27/22 0920 Temp Pulse Resp 18 05/27/22 0920 SpO2 93 % 05/27/22 0930 Pain Level 0 05/27/22 0920 Patient Location: PACU/[facility] Level of Consciousness: Awake and Alert Pain Management: Satisfactory Analgesia PONV: None Cardiovascular Status: At Baseline and Hemodynamically Stable Respiratory Status: At Baseline and Room Air Postoperative Fluid Status: Intravascular EUvolemia Possible Anesthetic Complications: NONE apparent at time of evaluation Final Primary Anesthesia Type: MAC (The anesthetic type performed was the same as planned.) Comments: NARCISA GILBERT MD Anesthesia Preprocedure Evaluation - Narcisa Gilbert MD - 05/26/2022 7:17 PM EDT Pre-Anesthesia Evaluation for: Marcelle Conner a 72 y.o. female. Procedure(s): UPPER EUS- ENDOSCOPIC ULTRASOUND Patient Active Problem List Diagnosis Date Noted ??? Bradycardia 02/04/2022 ??? Left atrial dilation 01/29/2022 ??? Aortic stenosis, severe 01/29/2022 ??? Lymphadenopathy 04/21/2022 ??? Pulmonary nodules 04/21/2022 ??? Mediastinal lymphadenopathy, abnormal findings right and left liver lobes, numerous very small pulmonary nodules 04/05/2022 ??? S/P AVR (aortic valve replacement) and aortoplasty and CABG 03/30/2022 ??? Class 3 severe obesity in adult 03/30/2022 ??? Pulmonary hypertension 03/30/2022 ??? CAD (coronary artery disease) 03/20/2022 ??? Diabetes mellitus 02/04/2022 ??? Hypertension 02/04/2022 ??? SOB (shortness of breath) 02/04/2022 ??? Dermatitis 12/10/2011 Past Medical History: Diagnosis Date ??? Chronic anxiety ??? Class 3 severe obesity in adult 03/30/2022 ??? Claudication ??? Coronary artery disease ??? Diabetes ??? Diabetes mellitus 02/04/2022 ??? Gastroesophageal reflux ??? Heart valve disease ??? High blood pressure ??? Hyperlipidemia ??? Hypertension 02/04/2022 ??? Incisional hernia ??? Lung nodule 02/04/2022 ??? Mediastinal lymphadenopathy, abnormal findings right and left liver lobes, numerous very small pulmonary nodules 04/05/[address] 03/23/2022: UNEXPECTED FINDING of pathologic enlargement of mediastinal lymph nodes especially in the right paratracheal region, abnormal findings in the right and left liver lobe, as well as numerous very small pulmonary nodules. Findings are highly suspicious for malignancy. ??? Pulmonary hypertension 03/30/2022 ??? S/P AVR (aortic valve replacement) and aortoplasty and CABG 03/30/2022 Past Surgical History: Procedure Laterality Date ??? APPENDECTOMY ??? GALLBLADDER SURGERY ??? HERNIA REPAIR ??? HYSTERECTOMY, TOTAL ABDOMINAL ? ? PRG CATH [facility] CORONARY ART W/INJ FOR ANGIO W/R HEART CATH IMG S&I N/A 03/19/2022 CORONARY ANGIOGRAPHY; W RHC performed by Dwayne Rachel MD at [facility] CATH LABS ??? PRO CABG, ARTERIAL, SINGLE N/A 03/30/2022 @CABG, USING ARTERIAL GRAFT;SINGLE ARTERIAL GRAFT (WRVU 33.75) performed by Abdulkadir Raya MDat [facility] OR ??? PRO CABG, ARTERY-VEIN, SINGLE N/A 03/30/2022 @CABG, VENOUS & ARTERIAL GRAFT;SINGLE VEIN GRAFT (WRVU 3.61) performed by Abdulkadir Raya MD at [facility] MAIN OR ??? PRO ENDOSCOPY W/VIDEO-ASST VEIN HARVEST, CABG Left 03/30/2022 ENDOSCOPIC HARVEST VEIN(S) FOR CABG (WRVU 0.31) performed by Abdulkadir Raya MD at [facility] OR ??? PRO REPLACEMENT PROSTHETIC AORTIC VALVE OPEN W CARDIOPULMONARY BYPASS HOMOGRF/STENT N/A 03/30/2022 @REPLACE AORTIC VALVE, OPEN, W\CPB, W\PROSTHETIC VALVE (WRVU 41.32) performed by Abdulkadir Raya MD at [facility] MAIN OR ??? PRO UNLISTED CARDIAC SURG PROCEDURE N/A 03/30/2022 REPAIR, PATCH, AORTIC ROOT (WRVU 5.94) performed by Abdulkadir Raya MD at [facility] MAIN OR ??? WRIST SURGERY Bilateral Social History Tobacco Use ??? Smoking status: Former Smoker Types: Cigarettes Quit date: 03/23/2012 Years since quittin.1 ??? Smokeless tobacco: Never Used Substance Use Topics ??? Alcohol use: Yes Comment: rarely - 4 / year Social History Substance and Sexual Activity Drug Use Not Currently Comment: CBD oil caps in past, stopeed @ 1 month ago No Known Allergies Medications: MAR and/or home medications have been reviewed. Physical Exam: Preprocedure Vitals Current as of 05/26/221916 No BP, pulse, respiration, SpO2, or temperature recorded. Height: Weight: BMI: IBW: 37.3 kg (82 lb 2.4 oz) Airway Assessment: Mallampati: II TM distance: >3 FB Neck ROM: full Cardiovascular Assessment: Rhythm: regular Pulmonary Assessment: unlabored breathing Dental Assessment: (+) upper dentures and lower dentures Comment: Several lower teeth solid. Misc Assessment: IV access: Peripheral line Last Filed Perioperative Cognitive Screening Value Time User AD8 Total Score: 0 03/23/2022 12:00 PM Roula Eng RN AD8 Informant: Patient 03/23/2022 12:00 PM Roula Eng RN CFS Frailty Score: 3 03/23/2022 12:00 PM Roula Eng RN Anesthesia Plan: ASA 3 MAC, with a(n) intravenous induction 72 yo female for EUS to eval liver lesions and mediastinal adenopathy. Hx of severe s/p CABG and valve replacement, DM, pulm HTN, morbid obesity, HTN. NO problem with prior anesthesia. NPO, OK to proceed. Propofol, std monitors. Region - Other Informed Consent: Anesthetic plan and risks discussed with patient. Plan discussed with ROADWAY TECHNICIAN. Anesthesia Screening documented in this encounter Plan of Treatment Upcoming Encounters Date Type Specialty Care Team Description 08/21/2022 Scheduled View Only Hematology and [place], Dameon Loaiza MD [facility] [place] [address] [address] HEMATOLOGY AND [place], [place] [address] 08/21/2022 TH Visit (TeleHealth) Hematology and Reddy Hernandez Oncology [facility] [address] [place], [place] [address] (Wo rk) 08/21/2022 Infusion Hematology and Oncology 08/28/2022 Office Visit Hematology and Reddy Hernandez Oncology [facility] [address] [place], [place] [address] (Wo rk) 08/28/2022 Infusion Hematology and Oncology 09/11/2022 Office Visit Hematology and Reddy Hernandez MD [facility] [place] [address] [address] [place] AND [place], [place] [id number] 09/11/2022 Infusion Hematology and Oncology 09/18/2022 Office Visit Hematology and Nikky Pak Oncology [address] [place] AND [place], [place] [id number] (Wo rk) 09/18/2022 Infusion Hematology and Oncology 03/10/2023 Office Visit Cardiology Ofelia Rubalcava MD [facility] [address] [place] [address] (Wo rk) documented as of this encounter Visit Diagnoses Not on filedocumented in this encounter Administered Medications Inactive Administered Medications - up to 3 most recent administrations Medication Order MAR Action Action Date Dose Rate Site dexmedeTOMIDine (Precedex) (4 Given 05/27/2022 7:52 AM EDT 12 mc g mcg/mL) bolus injection (Anesthsia) Intravenous, PRN, Starting on Wed05/27/22 at 0752, Until Wed05/27/22 at 0827, Anesthesia Intra-op, Routine lactated ringers infusion Restarted 05/27/2022 8:21 AM EDT 100 mL/hr, Intravenous, CONTINUOUS, Starting on Wed05/27/22 at 0730, Until Wed05/27/22 at 1219, Endoscopy (Day of Procedure) New Bag 05/27/2022 7:14 AM EDT 100 mL/hr 100 mL/hr propofoL (Diprivan) (10 Rate/Dose 05/27/2022 8:06 125 mcg/kg/min 73. 5 mL/hr mg/mL) infusion Change AM EDT Intravenous, CONTINUOUS PRN, Starting on Wed05/27/22 at 0752, Until Wed05/27/22 at 0827, Anesthesia Intra-op, Routine Rate/Dose Change 05/27/2022 8:02 AM EDT 150 mcg/kg/min 88.2 mL/hr New Bag 05/27/2022 7:52 AM EDT 175 mcg/kg/min 102.9 mL/hr propofoL (Diprivan) 10 mg/mL bolus injection Given 8:15 AM EDT 20 mg (Anesthesia) Intravenous, PRN, Starting on Wed05/27/22 at 0752, Until Wed05/27/22 at 0827, Anesthesia Intra-op Given 05/27/2022 7:53 AM EDT 20 mg Given 05/27/2022 7:52 AM EDT 50 mg documented in this encounter Care Teams Inspector Fibrous Wallboard Relationship Specialty Start Date End Date Harshal Godfrey MD PCP - General Family Medicine 02/18/22 [address] [place] [address] documented as of this encounter
--- OUTSIDE RECORDS SUMMARY | 2022-08-21 01:35 | XMS_ITS | Encounter Summary ---
:1950 Author Organization [facility] [place] [address] Care Team Providers Name Role Phone Harshal Godfrey MD Primary Care Provider [phone] Encounter Details Date Type Department Care Team Description 06/30/2022 TH Visit Hematology/Oncology Reddy Hernandez [email or web address]; (TeleHealth) at [facility] MD Josse High risk medication use [address] [place] [address] CENTER [phone] ONCOLOGY [phone] [place], [place] [address] Social History Tobacco Use Types [...] documented as of this encounter Progress Notes Reddy Hernandez MD - 06/30/2022 3:30 PM EDT Subjective Patient ID: Marcelle Conner is [...] reveal intact nuclear staining in tumor cells. E. Liver tumor conference - given extent [...] unknown primary. The history is summarized above. Today's visit is a TeleHealth encounter to f/u on the result of the CT scan and discuss options in more detail. Her daughter Ailyn is with her. She continues to feeling generally well and the majorityof today's visit is spent going over the CT scan and treatment options. 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 Behavior: Behavior normal. Labs: WBC/ANC - 15.7/11,800, Hgb/Hct - 11.9/42.8, Plts - 398,000. BUN/Cr - 22/1.2. Lytes and LFTs unremarkable Calc CrCl - 67 CA 19-9 06/16/22 843 AFP 06/16/22 2.1 [...] quite upsetting for her. Again, based on [facility] discussion today, this is not felt to be the case. I willsee what the opinion is at [facility]. I did speak with Dr. Mitchell about the lung findings. Given the pathology result, the likelihood is that the findings in the chest are related to the underlying malignancy. If it is felt that it would meter changes records clerk, ie make the difference between resectable vs unresectable disease, he would be willing to biopsy the LN via EBUS. Discussed at [facility] and with Dr. Esqueda on [...] repeat CT was done on 06/29/22. This is read as showing stable liver lesions (compared with the MRIin May) and peritoneal implants, increased upper abdominal and thoracic adenopathy. She is interested in going ahead with therapy as described above. The gemctabine and cisplatin and given day 1 and day 8 every three weeks. The durvalumab is given on day 1 of each cycle, up to 8 cycles. We reviewed potential side effects of therapy including nausea, vomiting, diarrhea, renal insufficiency, hearing loss, tinnitus, peripheral neuropathy, myelosuppression with associated risks of bleeding, infection and dose delays, fluid retention, hypersensitivity reactions and immune related side effects which can effect many organ systems and can be serious in a minority of cases. She is planning a second opinion at [facility]. This is scheduled for 07/23/22 but they are on a cancellation list and hope that she will be able to be seen sooner. We discussed that starting therapyhere prior to that could affect clinical trial eligibility should trials be available. We will tentatively plan to begin treatment on 07/10/22. NGS studies are pending. documented in this encounter Plan of Treatment Upcoming Encounters Date Type Specialty Care Team Description 08/21/2022 Scheduled View Only Hematology and Dameon Hernandez MD [facility] [place] [address] [address] [place] [address] 08/21/2022 TH Visit (TeleHealth) Hematology and Reddy Hernandez Oncology [facility] [address] [place], [place] [address] (Wo leslee) 08/21/2022 Infusion Hematology and Oncology 08/28/2022 Office Visit Hematology and Reddy Hernandez Oncology [facility] [address] [place], [place] [address] (Luis F camilo) 08/28/2022 Infusion Hematology and Oncology 09/11/2022 Office Visit Hematology and Reddy Hernandez MD [facility] [place] [address] [address] HEMATOLOGY AND [place], [place] [phone] 09/11/2022 Infusion Hematology and Oncology 09/18/2022 Office Visit Hematology and Nikky Pak, Oncology [address] HEMATOLOGY AND [place], [place] [phone] (Wo rk) 09/18/2022 Infusion Hematology and Oncology 03/10/2023 Office Visit Cardiology Ofelia Rubalcava MD [facility] [address] [place], [place] [address] (Wo rk) Scheduled Orders Name Type Priority Associated Diagnoses Order S chedule CBC (with Diff) Lab Routine Cholangiocarcinoma Once a week for 26 Occurrences sta rting 06/30/2022 unti l 06/30/2023 Comprehensive metabolic Lab Routine Cholangiocarcinom a Once a week for 26 panel (non-fasting) Occurren james starting 06/30/2022 unti l 06/30/2023 Carbohydrate Antigen Lab Routine Cholangiocarcinoma E very 3 weeks for 12 19-9 Occurrences sta rting 06/30/2022 unti l 06/30/2023 TSH Lab Routine High risk medication use Meredith ry 3 weeks for 12 Occurrences sta rting 06/30/2022 unti l 06/30/2023 T4, free Lab Routine High risk medication use Meredith ry 3 weeks for 12 Occurrences sta rting 06/30/2022 unti l 06/30/2023 documented as of this encounter Visit Diagnoses Diagnosis Cholangiocarcinoma Malignant neoplasm of intrahepatic bile ducts High risk medication use Encounter for long-term (current) use of other medications Colon cancer metastasized to liver Malignant neoplasm of colon, unspecified site documented in this encounter Care Teams Cable Respooler Relationship Specialty Start Date End Date Harshal Godfrey MD PCP - General Family Medicine 02/18/[address] [place] [phone] documented as of this encounter
--- OUTSIDE RECORDS SUMMARY | 2022-08-21 01:35 | XMS_ITS | Encounter Summary ---
:1950 Author Organization [facility] [place] [address] Care Team Providers Name Role Phone Harshal Godfrey MD Primary Care Provider Reason for Visit Reason Comments Chemotherapy C1D1 Durvalumab, Gemcitabine , Cisplatin Treatment/Therapy Plan Authorization (Routine) - Authorized Specialty Diagnoses / Procedures Referred By Contact Refer red To Contact Diagnoses Cholangiocarcinoma High risk medication use Low magnesium level Reddy Hernandez MD [facility] Hem Onc Infusion Procedures INFUSION [address] ONCOLOGY [place], [place] [phone] Fax: Referral ID Status Reason Start Date Expiration Date Visits V isits Requested Authorized [id number] Authorized 06/30/2022 06/30/2023 99 99 Encounter Details Date Type Department Care Team Description 07/10/2022 Infusion Hematology Oncology at [facility] gh risk medication use; [facility] Cholangiocarcinoma [address] [place] [phone] Social History Tobacco Use Types [...] encounter Progress Notes Yesika Hughes RN - 07/10/2022 10:30 AM EDT INFUSION THERAPY ADMINISTRATION NOTES DIAGNOSIS: Cholangioma CYCLE #: C1D1 REASON FOR VISIT: Durvalumab, Gemcitabine, Cisplatin SUBJECTIVE March offers no complaints. She met with Dr. Hernandez prior to infusion, ready for treatment OBJECTIVE LAB DATA: completed 07/10 at [facility], reviewed and adequate for treatment. IV ACCESS: Right PIV BLOOD RETURN: yes ANY S/S OF INFECTION/EXTRAVASATIONS: none IV FLUSHED WITH: NS IV DISCONTINUED: yes Pre administration: Chemotherapy orders independently verified for drug name, route, and dosage per patient's height, weight and BSA by Alondra Carvajal and on-site pharmacist REACTIONS (DESCRIPTION, TIME, INTERVENTION AND EFFECTIVENESS) none ASSESSMENT Marcelle was awake, alert and he tolerated treatment well. Pt. chemo teaching instructions included: During clinic hours (8am-5pm Wednesday-Wednesday): pt. can call [phone] with questions or concerns. After clinic hours (5pm-8am Wednesday-Wednesday and weekends) pt can call [phone] and ask for the transcription typist/oncologist yarn preparation supervisor. Marcelle Conner verbalized understanding of potential chemotherapy side effects and home care including but not limited to- handwashing to prevent infection, signs and symptoms of low blood counts (fever, fatigue, bleeding), to call with a fever of 100.4 or greater, any significant constipation/diarrhea, importance of nutrition and fluid intake (drinking at least 32-64 ounces of non-caffeinated beverages/day), mouth care. Marcelle Conner verbalized understanding of how to take prescription medications given for home use after chemotherapy. PLAN Return to clinic per routine. documented in this encounter Plan of Treatment Upcoming Encounters Date Type Specialty Care Team Description 08/21/2022 Scheduled View Only Hematology and Dameon Hernandez MD [facility] [place] [address] [address] HEMATOLOGY AND [place], [place] [phone] 08/21/2022 TH Visit (TeleHealth) Hematology and Reddy Hernandez Oncology [facility] [address] [place], [place] [address] (Wo rk) 08/21/2022 Infusion Hematology and Oncology 08/28/2022 Office Visit Hematology Reddy Young Oncology [facility] [address] [place], [place] [address] (Wo rk) 08/28/2022 Infusion Hematology and Oncology 09/11/2022 Office Visit Reddy Thompson MD [facility] [place] [address] [address] HEMATOLOGY AND [place], [place] [phone] 09/11/2022 Infusion Hematology and Oncology 09/18/2022 Office Visit Hematology and Nikky Pak, Oncology [address] [address] (Wo rk) 09/18/2022 Infusion Hematology and Oncology 03/10/2023 Office Visit Cardiology Ofelia Rubalcava MD [facility] [address] [place], [place] [address] (Wo rk) documented as of this [...] Dose Rate Site aprepitant (CINVANTI) injection Given 07/10/2022 11:23 AM EDT 13 0 mg Emul 130 mg 130 mg, Intravenous, ONCE, 1 dose, On Wed07/10/22 at 1100, Alternative administration of IV push over 2 minutes is a recommendation from the a/c tech. Administer prior to chemotherapy., Routine CISplatin (Platinol) 50 mg in sodium New Bag 07/10/2022 1:49 P M EDT 50 mg 300 mL/hr chloride 0.9% 300 mL infusion 50 mg (rounded from 49.75 mg = 25 mg/m2/dose ? 1.99 m2 Treatment Plan BSA from Recorded weight), Intravenous, ONCE, 1 dose, On Wed07/10/22 at 1200, Administer over 60 Minutes dexAMETHasone (Decadron) tablet 10 mg Given 07/10/2022 11:14 AM EDT 10 mg 10 mg, Oral, ONCE, 1 dose, On Wed07/10/22 at 1100, Administer prior to chemotherapy, Routine durvalumab (Imfinzi) 1,500 mg in New Bag 07/10/2022 11:45 AM E DT 1,500 mg 280 mL/hr sodium chloride 0.9% 280 mL infusion 1,500 mg, Intravenous, ONCE, 1 dose, On Wed07/10/22 at 1100, Administer over 60 Minutes, This agent is restricted to outpatient use. Is this drug being given as an outpatient? Yes GEMcitabine 2,000 mg in sodium New Bag 07/10/2022 1:01 PM EDT 2,000 mg 605.2 mL/hr chloride 0.9% 302.6 mL infusion 2,000 mg, Intravenous, ONCE, 1 dose, On Wed07/10/22 at 1200, Administer over 30 Minutes, Warning Vesicant/Irritant Medication Dose Ordered = 1990 mg (1000 mg/m2). Pharmacist rounded dose per procedure. palonosetron (Aloxi) (0.05 mg/mL) injection Given 04/2022 11:20 AM EDT 0.25 mg 0.25 mg 0.25 mg, Intravenous, ONCE, 1 dose, On Wed07/10/22 at 1100, Administer over 30 seconds., Routine sodium chloride 0.9% infusion New Bag 07/10/2022 10:48 AM EDT 1,000 mLs 500 mL/hr 1,000 mL, at 500 mL/hr, Intravenous, CONTINUOUS, Starting on Wed07/10/22 at 1100, Until Wed07/10/22 at 1259, Pre CISplatin documented in this encounter Care Teams Telephone Appointment Clerk Relationship Specialty Start Date End Date Harshal Godfrey MD PCP - General Family Medicine 02/18/22 [address] [place] [address] documented as of this encounter
--- OUTSIDE RECORDS SUMMARY | 2022-08-21 01:35 | XMS_ITS | Encounter Summary ---
:1950 Author Organization [facility] [place] [address] Care Team Providers Name Role Phone Harshal Godfrey MD Primary Care Provider [phone] Encounter Details Date Type Department Care Team Description 07/08/2022 Orders Only Hematology and Oncology at [facility] [place] [address] [place] [address] [phone] (Wo rk) Social History Tobacco Use Types [...] place to sleep or slept in a penitentiary (including now)? Sex Assigned at Date Recorded Not on file documented as of this encounter Plan of Treatment Upcoming Encounters Date Type Specialty Care Team Description 08/21/2022 Scheduled View Only Hematology and Dameon Hernandez MD [facility] [place] [address] On[address] HEMATOLOGY AND [place], [place] [phone] 08/21/2022 TH Visit (TeleHealth) Hematology and Reddy Hernandez Oncology [facility] [address] [place], [place] [address] (Wo rk) 08/21/2022 Infusion Hematology and Oncology 08/28/2022 Office Visit Hematology and Reddy Hernandez Oncology [facility] [address] [place], [place] [address] (Wo rk) 08/28/2022 Infusion Hematology and Oncology 09/11/2022 Office Visit Hematology Reddy Young MD [facility] [place] [address] [address] HEMATOLOGY AND [place], [place] [phone] 09/11/2022 Infusion Hematology and Oncology 09/18/2022 Office Visit Hematology and Nikky Pak, Oncology [address] [place] [address] (Wo rk) 09/18/2022 Infusion Hematology and Oncology 03/10/2023 Office Visit Cardiology Ofelia Rubalcava MD [facility] [address] [place], [place] [address] (Wo rk) documented as of this encounter Visit Diagnoses Not on filedocumented in this encounter Care Teams Elementary Tutor Relationship Specialty Start Date End Date Harshal Godfrey MD PCP - General Family Medicine 02/18/22 [address] [place], [place] [id number] documented as of this encounter
--- OUTSIDE RECORDS SUMMARY | 2022-08-21 01:35 | XMS_ITS | Encounter Summary ---
:1950 Author Organization [facility] [place] [address] Care Team Providers Name Role Phone Harshal Godfrey MD Primary Care Provider [phone] Encounter Details Date Type Department Care Team Description 05/15/2022 Orders Only Gastroenterology at [facility] [place] [address] [address] [phone] [place] [id number] (Wo rk) Social History Tobacco Use Types [...] View Only Hematology and Dameon Hernandez MD [facility] [place] [address] [address] HEMATOLOGY AND [place], [place] [phone] 08/21/2022 TH Visit (TeleHealth) Hematology and Reddy Hernandez Oncology [facility] [address] [place], [place] [address] (Wo rk) 08/21/2022 Infusion Hematology and Oncology 08/28/2022 Office Visit Hematology and Reddy Hernandez Oncology [facility] [address] [place], [place] [address] (Wo rk) 08/28/2022 Infusion Hematology and Oncology 09/11/2022 Office Visit Hematology Reddy Young MD [facility] [place] [address] [address] HEMATOLOGY AND [place], [place] [phone] 09/11/2022 Infusion Hematology and Oncology 09/18/2022 Office Visit Hematology and Nikky Pak Oncology [address] [place] [address] (Wo rk) 09/18/2022 Infusion Hematology and Oncology 03/10/2023 Office Visit Cardiology Ofelia Rubalcava MD [facility] [address] [place], [place] [address] (Wo rk) documented as of this encounter Visit Diagnoses Diagnosis Liver mass Unspecified disorder of liver Colon cancer metastasized to liver Malignant neoplasm of colon, unspecified site documented in this encounter Care Teams Claims Account Specialist Relationship Specialty Start Date End Date Harshal Godfrey MD PCP - General Family Medicine 02/18/22 [facility] [address] [place], [place] [address] documented as of this encounter
--- OUTSIDE RECORDS SUMMARY | 2022-08-21 01:35 | XMS_ITS | Encounter Summary ---
:1950 [place] [address] Care Team Providers Name Role Phone Harshal Godfrey MD Primary Care Provider [phone] Encounter Details Date Type Department Care Team Description 05/15/2022 Office Visit Cardiac Surgery at [facility] Abdulkadir Raya MD S/P [facility] [place] [address] CARDIAC SURGERY [phone] [place] [id number] (Wo rk) Social History Tobacco Use Types [...] Sign Reading Time Taken Comments Blood Pressure 133/56 05/15/2022 2:15 PM EDT Pulse 98 05/15/2022 2:15 PM EDT Temperature - - Respiratory Rate - - Oxygen Saturation 93% 05/15/2022 2:15 PM EDT Inhaled Oxygen Concentration - - Weight 101.4 kg (223 lb 8 oz) 05/15/2022 2:15 PM EDT Height 147.3 cm (4' 10) 05/15/2022 2:15 PM EDT Body Mass Index 46.71 05/15/2022 2:15 PM EDT documented in this encounter Progress Notes Abdulkadir Raya MD - 05/15/2022 2:40 PM EDT Images from the original note were not included. Cardiac Surgery Post-Operative Visit Date of Service: 05/15/2022 Time: 3:00 PM Referring Provider: Ofelia Rubalcava MD Primary Care Provider: Harshal Godfrey MD Date of surgery: 03/30/22 1. Aortic valve replacement with??19mm Sherwood??inspiris??bioprosthetic valve 2. Coronary artery bypass grafting x??2??(PLUNKETT to??LAD, RSVG to??OM1)?? Progress: Marcelle Conner is a 72 year-old woman who presents for routine post-operative care. She is ambulating at home with only mild shortness of breath. She will do cardiac rehab at [facility]. Mauro has some incisional chest pain Current Medications: Current Outpatient Medications Ordered in [facility] Medication Sig Dispense Refill ??? clopidogreL (Plavix) 75 mg Tablet Take 1 tablet by mouth daily for 360 days. 90 tablet 3 ??? metoproloL tartrate (Lopressor) 25 mg Tablet Take 0.5 tablets by mouth 2 times daily. 30 tablet 3 ??? acetaminophen (Tylenol) 500 mg Tablet Take 2 tablets by mouth every 6 hours as needed for Pain. ??? dextromethorphan-guaiFENesin (Robitussin) 10-100 mg/5 mL Syrup Take 5 mLs by mouth 3 times dailyas needed for Cough. ??? amoxicillin (Amoxil) 500 mg Capsule Take 4 capsules by mouth as needed. Take 4 tablets, 2000mg, 1 hour before dental procedures. ??? nystatin (MYCOSTATIN) 100,000 unit/gram Powder Apply 1 Application topically daily as needed. PRN ??? ProChamber Spacer Inhale 1 Package into the lungs every 6 hours as needed. ??? multivitamin (THERAGRAN) Tablet Take 1 tablet by mouth daily. ??? diphenhydrAMINE (Benadryl) 25 mg Capsule Take 50 mg by mouth nightly as needed for Itching. ??? vit A/C/E ac/ZnOx/cupric oxide (EYE VITAMIN AND MINERALS ORAL) Take 1 tablet by mouth 2 times daily. [facility] ??? citalopram (CeleXA) 20 mg Tablet Take 20 mg by mouth daily. ??? albuteroL 90 mcg/actuation HFA Aerosol Inhaler Inhale 2 puffs into the lungs every 4 hours as needed for Wheezing. Use with spacer ??? simvastatin (ZOCOR) 20 mg tablet Take 20 mg by mouth nightly. ??? metFORMIN (GLUCOPHAGE) 500 mg tablet Take 500 mg by mouth 2 times daily (with meals). ??? aspirin 81 mg EC tablet Take 81 mg by mouth daily. No current [facility]-ordered facility-administered medications on file. Review of Systems: Respiratory: negative for dyspnea on exertion Cardiovascular: negative for chest pain and chest pressure/discomfort All other ROS negative Physical Exam: Last set of vitals: BP 133/56 Pulse 98 Ht 147.3 cm (4' 10) Wt 101.4 kg (223 lb 8 oz) SpO2 93% BMI 46.71 kg/m?? General appearance: alert, appears stated age and cooperative Lungs: clear to auscultation bilaterally Heart: regular rate and rhythm, S1, S2 normal, no murmur, click, rub or gallop Extremities: extremities normal, atraumatic, no cyanosis or edema Incision: clean, dry, intact EKG: NSR at 93 bpm Echo: Left ventricle is of normal size. Wall thickness is moderately increased. Left ventricular systolic function is normal. The left ventricular ejection fraction is 61% by Muniz's biplane. Right ventricle is mildly dilated. Right ventricular systolic function is normal. 19mm Sherwood Inspiris bioprosthetic valve is present. Aortic bioprosthesis leaflets are thin and move normally. The mean gradient across the prosthesis is 24 mmHg. There is moderate tricuspid regurgitation CXR: No acute cardiopulmonary process Pathology: Aortic valve leaflets, excision: Valve leaflets with myxoid degeneration, nodular fibrosis and dystrophic ??calcifications. Assessment & Plan of Management: Marcelle Conner is a 72 year-old woman who has recovered well. ?? No medication changes ?? Continue plavix for 1 year ?? Has GI follow-up for abdominal mass ?? Given keflex 10 days supply for scant drainage at base of wound Thank you for allowing me to participate in the care of Marcelle Conner Please do not hesitate to call with questions. Abdulkadir Raya MD, MS devulcanizer head Section of Cardiac Surgery [facility] Office: [phone] Pager: [phone] documented in this encounter Plan of Treatment Upcoming Encounters Date Type Specialty Care Team Description 08/21/2022 Scheduled View Only Hematology and Dameon Hernandez MD [facility] [place] [address] [address] [address] 08/21/2022 TH Visit (TeleHealth) Hematology Reddy Young Oncology [facility] [address] [place], [place] [address] (Wo rk) 08/21/2022 Infusion Hematology and Oncology 08/28/2022 Office Visit Hematology and Reddy Hernandez, Oncology [facility] [address] [place] [address] (Wo rk) 08/28/2022 Infusion Hematology and Oncology 09/11/2022 Office Visit Hematology and Reddy Hernandez MD [facility] [place] [address] Oncology [address] HEMATOLOGY AND [facility], [place] [phone] 09/11/2022 Infusion Hematology and Oncology 09/18/2022 Office Visit Hematology and LaRozaNikky A, Oncology [address] HEMATOLOGY AND [facility], [place] [phone] (Wo rk) 09/18/2022 Infusion Hematology and Oncology 03/10/2023 Office Visit Cardiology Ofelia Rubalcava MD [facility] [place], [place] [address] (Wo rk) documented as of this encounter Procedures Procedure Name Priority Date/Time Associated Diagnosis Comme nts EKG 12-LEAD Routine 05/15/2022 2:24 PM S/P AVR Results f or this EDT procedure are i n the results section . documented in this encounter Results EKG 12 Lead (05/15/2022 2:24 PM EDT) Component Value Ref Range Test Analysis Performed Pathologis t Method Time At Signature Ventricular rate 93 BPM MUSE SYSTEM Atrial Rate 93 BPM MUSE SYSTEM P-R Interval 156 ms MUSE SYSTEM QRS Duration 132 ms MUSE SYSTEM Q-T Interval 390 ms MUSE SYSTEM QTC Calculated 484 ms MUSE SYSTEM (Bezet) Calculated P [place] 71 degrees MUSE SYSTEM Calculated R [place] 103 degrees MUSE SYSTEM Calculated T [place] 74 degrees MUSE SYSTEM INTERPRETATION Normal sinus rhythm MUSE SYSTEM Right bundle branch block Abnormal ECG When compared with ECG of 29-APR-2022 10:27, No significant change was found Confirmed by Radha Miranda ([id number]) on 05/16/2022 7:38:26 A M Specimen Anatomical Collection Method Collection Time Receive d Time (Source) Location / / Volume Laterality 05/15/2022 2:24 PM 7:38 EDT AM EDT Abdulkadir Raya MD ECG ORDERABLES Performing Organization Address City/State/ZIP Code Phon e Number MUSE SYSTEM documented in this encounter Visit Diagnoses Diagnosis S/P AVR Heart valve replaced by other means Colon cancer metastasized to liver Malignant neoplasm of colon, unspecified site documented in this encounter Care Teams Cottage Master Relationship Specialty Start Date End Date Harshal Godfrey MD PCP - General Family Medicine 02/18/22 [address] [place] [address] documented as of this encounter
--- OUTSIDE RECORDS SUMMARY | 2022-08-21 01:35 | XMS_ITS | Encounter Summary ---
:1950 Author Organization [facility] [place] [address] Care Team Providers Name Role Phone Harshal Godfrey MD Primary Care Provider [phone] Reason for Referral Diagnostic Test (Routine) - Closed Specialty Diagnoses / Procedures Referred By Contact Refer red To Contact Cardiology Diagnoses S/P Rico Ray PA [facility] Non-Inv Card Lab Procedures [place]ocardi[place] [address] [place] [address] Phone: Fax: Referral ID Status Reason Start Date Expiration Date Visits V isits Requested Authorized [id number] Closed Specialty 04/02/2022 04/02/2023 1 1 Service Requested Reason for Visit Diagnostic Test (Routine) - Closed Specialty Diagnoses / Procedures Referred By Contact Refer red To Contact Cardiology Diagnoses S/P Rico Ray PA [facility] Non-Inv Card Lab Procedures [place]chocardiogram [place] [address] [place] [address] Phone: Fax: Referral ID Status Reason Start Date Expiration Date Visits V isits Requested Authorized [id number] Closed Specialty 04/02/2022 04/02/2023 1 1 Service Requested Encounter Details Date Type Department Care Team Description 05/15/2022 Hospital Encounter Non-Invasive Cardiology Jennifer Raya, S/P AVR Lab Ofelia Chaparro MD [facility] DR [place] [address] [place] [address] [phone] (Wo rk) Social History Tobacco Use Types [...] place to sleep or slept in a group home (including now)? Sex Assigned at Date Recorded Not on file documented as of this encounter Medications at Time of Discharge [...] ORAL) [facility] citalopram (CeleXA) 20 Take 20 mg by mouth 0 03/04 mg Tablet daily. simvastatin (ZOCOR) 20 Take 20 mg by mouth 0 mg tablet nightly. metFORMIN (GLUCOPHAGE) Take 500 mg by mouth 0 500 mg tablet 2 times daily (with meals). aspirin 81 mg EC tablet Take 81 mg by mouth 0 daily. cephALEXin (Keflex) 500 Take 1 capsule by 40 capsule 0 05/1505/25/2022 mg Capsule mouth 4 times daily for 10 days. metoproloL tartrate Take 0.5 tablets by 30 tablet 3 022 08/05/2022 (Lopressor) 25 mg Tablet mouth 2 times daily. dextromethorphan-guaiFEN Take 5 mLs by mouth 0 07/10/2022 esin (Robitussin) 10-100 3 times daily as mg/5 mL Syrup needed for Cough. ProChamber Spacer Inhale 1 Package 0 12/22/2021 1 into the lungs every 6 hours as needed. multivitamin (THERAGRAN) Take 1 tablet by 0 07/10/2022 Tablet mouth daily. albuteroL 90 Inhale 2 puffs into 0 04/2022 mcg/actuation HFA the lungs every 4 Aerosol Inhaler hours as needed for Wheezing. Use with spacer documented as of this encounter Plan of Treatment Upcoming Encounters Date Type Specialty Care Team Description 08/21/2022 Scheduled View Only Hematology and Dameon Hernandez MD [facility] [place] [address] [address] HEMATOLOGY AND [place], [place] [address] 08/21/2022 TH Visit (TeleHealth) Hematology and Reddy Hernandez Oncology [facility] [address] LORET[address] M[place] [address] (Wo rk) 08/21/2022 Infusion Hematology and Oncology 08/28/2022 Office Visit Hematology and Reddy Hernandez Oncology [facility] [address] LORET[address] [place] [address] (Wo rk) 08/28/2022 Infusion Hematology and Oncology 09/11/2022 Office Visit Hematology and Reddy Hernandez MD [facility] [place] [address] [address] HEMATOLOGY AND [place], [place] [phone] 09/11/2022 Infusion Hematology and Oncology 09/18/2022 Office Visit Hematology and Nikky Pka, Oncology [address] [place] AND [place], [place] [phone] (Wo rk) 09/18/2022 Infusion Hematology and Oncology 03/10/2023 Office Visit Cardiology Ofelia Rubalcava MD [facility] [address] [place] [address] (Wo rk) documented as of this encounter Procedures Procedure Name Priority Date/Time Associated Comments Diagnosis ECHOCARDIOGRAM COMPLETE Routine 05/15/2022 1:21 PM S/P AVR Results for this W CONTRAST EDT procedure are i n the results section. documented in this encounter Results ECHOCARDIOGRAM COMPLETE W CONTRAST (05/15/2022 1:21 PM EDT) P athologist Signature EF 61 HEARTLAB SYSTEM Anatomical Region Laterality Modality Cardiac Other Specimen (Source) Anatomical Collection Method Collection Time Re ceived Time Location / / Volume Laterality 05/15/2022 12:19 PM EDT Narrative 05/15/2022 1:31 PM EDT ? Echocardiogram Report Name: MARCELLE CONNER ? Study Date: 05/15/2022 12:19 PMBP: 152/51 mmHg ? Patient Location: 4T ? HR: 95 : 1950 ? Height: 147 cm ? Account: [id number] Age: 72 yrs ? Weight: 97 kg Gender: Female ?BSA: 1.9 m2 Ordering Physician: ABDULKADIR RAYA Referring Physician: RICO BARNES Performed By: Redd Snider RDCS Reason For Study: Evaluate ventricular f unction and valves History: CAVG and AVR on 03/30/22, HTN Exam Location: [facility]. Interpretation Summary Left ventricle is of normal size. Wall t hickness is moderately increased. Left ventricular systolic function is normal. The left ventricular ejection fraction is 61% by Muniz's biplane. Right ventricle is mildly dilated. Right ventricular systolic function is normal. 19mm Sherwood Inspiris bioprosthetic valv e is present. Aortic bioprosthesis leaflets are thin and move normally. The mean gradient across the prosthesis is 24 mmHg. There is moderate tricuspid regurgitatio n Procedure Complete-53005. Image enhancement Defini ty was used for left ventricular opacification. Suboptimal quality. This study is limited because of body habitus. There is normal sinus rhythm. Left Ventricle Left ventricle is of normal size. Wall t hickness is moderately increased. There is no ventricular septal defect. Left ventr icular systolic function is normal. The left ventricular ejection fraction is 61 % by Muniz's biplane. There are no segmental wall motion abnormalities. The re is abnormal septal motion post sternotomy. Right Ventricle Right ventricle is mildly dilated. Right ventricular systolic function is normal. Left Atrium The left atrium is severely dilated. The re is no evidence for a patent foramen ovale. Right Atrium The right atrium is mildly dilated. Aortic Valve 19mm Sherwood Inspiris bioprosthetic valv e is present. The date or year of insertion is 03/30/2022. Aortic bioprosth esis leaflets are thin and move normally. The peak gradient across the prosthesis is 39 mmHg. The mean gradient across the prosthesis is 24 mmHg. Mitral Valve Mild thickening of the mitral leaflets. Mild calcification of the anterior mitral annulus. Moderate calcification of the p osterior mitral annulus. There is trace mitral regurgitation. Tricuspid Valve The tricuspid valve is structurally norm al. There is moderate tricuspid regurgitation. Pulmonic Valve The pulmonic valve appears to be structu rally and functionally normal. There is trace pulmonic valve regurgitation. Great Arteries The aortic root is of normal size. No ab normalities are identified. Ascending aorta is normal in size. Venous Inferior vena cava is normal in size. In ferior vena cava collapse greater than 50% with respiration. Pericardium/Pleural The pericardium appears normal. Hemodynamics Left ventricular diastolic function is a bnormal. There is Grade I LV diastolic dysfunction (abnormal relaxation with no rmal left ventricular filling pressure). Ejection Fraction ?2D Measurem ents ? Volumes LV Biplane EF: 60.6 % ? IVSd: 1.6 cm ? LA Volume Index: ?L VIDd: 3.3 cm ?L VIDs: 2.6 cm ?62.3 ml/m2 ?L VPWd: 1.6 cm ?EDV Biplane: 97.4 ml ? EDV Biplane Index: 52.1 ?L V mass(C)d: 196.2 grams ? ESV Biplane: 38.4 ml ?L V mass(C)dI: 104.9 grams/m2 ?? ESV Biplane Index: 20.5 ?A o root diam: 3.0 cm ? SV(LVOT): 66.2 ml ?A o root diam index: 1.6 ?LV Stroke Volume: 66.1 ml ?a sc Aorta Diam: 3.1 cm ?L VOT diam: 1.7 cm ?SI(LVOT): 35.4 ml/m2 ?T APSE_phl: 1.6 cm Doppler TR max xander: 310.5 cm/sec Ao V2 VTI: 60.1 cm Ao valve max: 38.9 mmHg Ao valve mean: 23.7 mmHg MV E max xander: 102.0 cm/sec MV A max xander: 151.5 cm/sec MV E/A: 0.67 MV dec time: 0.14 sec Lat Peak E' Xander: 7.4 cm/sec E/ e' (lat): 13.9 Med Peak E' Xander: 4.9 cm/sec E/e' (med): 20.9 E/e' Average: 17.4 RICHELLE(I,D): 1.1 cm2 Dimensionless index Aov: 0.46 MV mean P.2 mmHg I ?WMSI = 1.00 ? % Normal = 1 00 ?Segments ??Size X - Cannot ?2 - ?4 - ?1-2 ? small Interpret ?1 - Normal ?? Hypokinetic 3 - Akinetic Dyskinetic ?? 3-5 ? moderate 5 - ? 6-14 ?large Aneurysmal ?15-16 ?? diffuse Procedure Note Carlos Nolasco MD - 05/15/2022Formatt ing of this note might be different from the original. Echocardiogram Report Name: MARCELLE CONNER Study Date: 2021 12:19 PMBP: 152/51 mmHg Patient Location: 4T HR: 95 : 1950 Height: 147 cm Account: [id number] Age: 72 yrs Weight: 97 kg Gender: Female BSA: 1.9 m2 Ordering Physician: ABDULKADIR RAYA Referring Physician: RICO BARNES Performed By: Redd Snider RDCS Reason For Study: Evaluate ventricular f unction and valves History: CAVG and AVR on 03/30/22, HTN Exam Location: [facility]. Interpretation Summary Left ventricle is of normal size. Wall t hickness is moderately increased. Left ventricular systolic function is normal. The left ventricular ejection fraction is 61% by Muniz's biplane. Right ventricle is mildly dilated. Right ventricular systolic function is normal. 19mm Sherwood Inspiris bioprosthetic valv e is present. Aortic bioprosthesis leaflets are thin and move normally. The mean gradient across the prosthesis is 24 mmHg. There is moderate tricuspid regurgitatio n Procedure Complete-08497. Image enhancement Defini ty was used for left ventricular opacification. Suboptimal quality. This study is limited because of body habitus. There is normal sinus rhythm. Left Ventricle Left ventricle is of normal size. Wall t hickness is moderately increased. There is no ventricular septal defect. Left ventr icular systolic function is normal. The left ventricular ejection fraction is 61 % by Muniz's biplane. There are no segmental wall motion abnormalities. The re is abnormal septal motion post sternotomy. Right Ventricle Right ventricle is mildly dilated. Right ventricular systolic function is normal. Left Atrium The left atrium is severely dilated. The re is no evidence for a patent foramen ovale. Right Atrium The right atrium is mildly dilated. Aortic Valve 19mm Sherwood Inspiris bioprosthetic valv e is present. The date or year of insertion is 03/30/2022. Aortic bioprosth esis leaflets are thin and move normally. The peak gradient across the prosthesis is 39 mmHg. The mean gradient across the prosthesis is 24 mmHg. Mitral Valve Mild thickening of the mitral leaflets. Mild calcification of the anterior mitral annulus. Moderate calcification of the p osterior mitral annulus. There is trace mitral regurgitation. Tricuspid Valve The tricuspid valve is structurally norm al. There is moderate tricuspid regurgitation. Pulmonic Valve The pulmonic valve appears to be structu rally and functionally normal. There is trace pulmonic valve regurgitation. Great Arteries The aortic root is of normal size. No ab normalities are identified. Ascending aorta is normal in size. Venous Inferior vena cava is normal in size. In ferior vena cava collapse greater than 50% with respiration. Pericardium/Pleural The pericardium appears normal. Hemodynamics Left ventricular diastolic function is a bnormal. There is Grade I LV diastolic dysfunction (abnormal relaxation with no rmal left ventricular filling pressure). Ejection Fraction 2D Measurements Volume s LV Biplane EF: 60.6 % IVSd: 1.6 cm LA Vo lume Index: LVIDd: 3.3 cm LVIDs: 2.6 cm 62.3 ml/m2 LVPWd: 1.6 cm EDV Biplane: 97.4 ml EDV Biplane Index: 52.1 LV mass(C)d: 196.2 grams ESV Biplane: 3 8.4 ml LV mass(C)dI: 104.9 grams/m2 ESV Biplan e Index: 20.5 Ao root diam: 3.0 cm SV(LVOT): 66.2 ml Ao root diam index: 1.6 LV Stroke Volum e: 66.1 ml asc Aorta Diam: 3.1 cm LVOT diam: 1.7 cm SI(LVOT): 35.4 ml/m2 TAPSE_phl: 1.6 cm Doppler TR max xander: 310.5 cm/sec Ao V2 VTI: 60.1 cm Ao valve max: 38.9 mmHg Ao valve mean: 23.7 mmHg MV E max xander: 102.0 cm/sec MV A max xander: 151.5 cm/sec MV E/A: 0.67 MV dec time: 0.14 sec Lat Peak E' Xander: 7.4 cm/sec E/ e' (lat): 13.9 Med Peak E' Xander: 4.9 cm/sec E/e' (med): 20.9 E/e' Average: 17.4 RICHELLE(I,D): 1.1 cm2 Dimensionless index Aov: 0.46 MV mean P.2 mmHg I WMSI = 1.00 % Normal = 100 Segments Size X - Cannot 2 - 4 - 1-2 small Interpret 1 - Normal Hypokinetic 3 - Edwardo netic Dyskinetic 3-5 moderate 5 - 6-14 large Aneurysmal 15-16 diffuse Abdulkadir Raya MD ECHO ORDERABLES documented in this encounter Visit Diagnoses Diagnosis S/P AVR Heart valve replaced by other means Colon cancer metastasized to liver Malignant neoplasm of colon, unspecified site documented in this encounter Administered Medications Inactive Administered Medications - up to 3 most recent administrations Medication Order MAR Action Action Date Dose Rate Site perflutren lipid microspheres Given 05/15/2022 1:00 PM EDT 0.5 m Ls (Definity) injection 0.5 mL 0.5 mL, Intravenous, ONCE PRN, 1 dose, Starting on Wed05/15/22 at 1321, Until Wed05/15/22 at 1300, Other, for enhancement of sub-optimal echo images, Echo Lab (Intra-Procedure), Routine documented in this encounter Care Teams Certified Bench Jeweler Technician Relationship Specialty Start Date End Date Harshal Godfrey MD PCP - General Family Medicine 02/18/22 [address] [place] [address] documented as of this encounter
--- OUTSIDE RECORDS SUMMARY | 2022-08-21 01:35 | XMS_ITS | Encounter Summary ---
:1950 Author Organization [facility] [place] [address] Care Team Providers Name Role Phone Harshal Godfrey MD Primary Care Provider [phone] Encounter Details Date Type Department Care Team Description 06/30/2022 Orders Only Hematology and Oncology at [facility] eReddy MD [facility] [place] [address] [place] [address] [phone] (Wo rk) Social History Tobacco Use Types [...] View Only Hematology and Dameon Hernandez MD [facility] [place] [address] [address] HEMATOLOGY AND [place], [place] [phone] 08/21/2022 TH Visit (TeleHealth) Hematology and Reddy Hernandez Oncology [facility] [address] [place], [place] [address] (Wo rk) 08/21/2022 Infusion Hematology and Oncology 08/28/2022 Office Visit Hematology and Reddy Hernandez Oncology [facility] [address] [place], [place] [address] (Wo rk) 08/28/2022 Infusion Hematology and Oncology 09/11/2022 Office Visit Hematology Reddy Young MD [facility] [place] [address] [address] HEMATOLOGY AND [place], [place] [phone] 09/11/2022 Infusion Hematology and Oncology 09/18/2022 Office Visit Hematology and Nikky Pak, Oncology [address] [place] [address] (Wo rk) 09/18/2022 Infusion Hematology and Oncology 03/10/2023 Office Visit Cardiology Ofelia Rubalcava MD [facility] [address] [place], [place] [address] (Wo rk) documented as of this encounter Visit Diagnoses Not on filedocumented in this encounter Care Teams Loop Tacker Relationship Specialty Start Date End Date Harshal Godfrey MD PCP - General Family Medicine 02/18/22 [address] [place], [place] [phone] documented as of this encounter
--- OUTSIDE RECORDS SUMMARY | 2022-08-21 01:35 | XMS_ITS | Encounter Summary ---
:1950 Author Organization [facility] [place] [address] Care Team Providers Name Role Phone Harshal Godfrey MD Primary Care Provider [phone] Encounter Details Date Type Department Care Team Description 06/16/2022 Multidisciplinary Care Gastroenterology at [facility], Committee [facility] [place] [address] Social History Tobacco Use Types Packs/Day [...] to sleep or slept in a senior living (including now)? Sex Assigned at Date Recorded Not on file documented as of this encounter Progress Notes Sharla Juarez RN - 06/16/2022 11:04 AM EDT Interdisciplinary Liver Tumor Conference Patient: Marcelle Conner : 1950 Date Presented: 06/16/22 Dx: Incidental liver lesion finding. Tumor Treatment History: ?? N/A -Imaging: Initial: 05/15/22 MRI Abdomen IMPRESSION 1. Dominant left hepatic lobe mass concerning for malignancy such as cholangiocarcinoma. Additional hepatic metastases. Abdominal lymphadenopathy. Biopsy is recommended for tissue confirmation. 2. Hepatomegaly without imaging signs of cirrhosis or portal hypertension. 04/21/[address] IMPRESSION 1. There are areas of decreased [...] also have this appearance. Please correlate clinically. AFP value: Tissue: 06/06/22 Cytopathology: DIAGNOSIS Positive for Malignancy Electronically signed by: ?José Miguel De Paz MD Verified: ??06/06/2022 14:55 ??Cytopathologist Performed at: ??-[facility] Dept. 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 Note: The immunoperoxidase stain results do not specify a primary site. Recommend clinical correlation. Dr. Silva reviewed this case and concurs with the diagnosis. Patient Characteristics: Current Child's Score: Current MELD Score: Pertinent Labs: see eDH Discussion / Recommendations of the Board: Mediastinal lymphadenopathy and liver lesions. Large lesion located in the left liver lobe, taking up most of the left lobe. Recommendation: Systemic therapy, consider biopsy of lung nodule, obtain AFP and CA 19-9, present toGI tumor board. Conference Attendees: Donita Catherine, Zoila, Pedro, Mari, Isaura, Alison Faustin Gemery, Ripple, MAGDIEL Ramires, Avel Longoria RN Barrell. *These are recommended next steps based on past studies and information available here. Specific treatment to be undertaken must ultimately be determined on an individual patient and those involved in the treatment plan. Sharla Juarez RN Liver Tumor & Organ Prosthetist Division of Gastroenterology and Hepatology [facility] documented in this encounter Plan of Treatment Upcoming Encounters Date Type Specialty Care Team Description 08/21/2022 Scheduled View Only Hematology and Dameon Hernandez MD [facility] [place] [address] Oncology Nikky Pak [address] [place] [address] 08/21/2022 TH Visit (TeleHealth) Hematology and Reddy Hernandez Oncology [facility] [address] [place] [place], [place] [address] (Wo rk) 08/21/2022 Infusion Hematology and Oncology 08/28/2022 Office Visit Reddy Thompson Oncology [facility] [address] [place] [place], [place] [address] (Wo rk) 08/28/2022 Infusion Hematology and Oncology 09/11/2022 Office Visit Reddy Thompson MD [facility] [place] [address] Oncology [address] [place] [address] 09/11/2022 Infusion Hematology and Oncology 09/18/2022 Office Visit Hematology and Nikky Pak, Oncology [address] HEMATOLOGY AND [place], [place] [address] (Wo rk) 09/18/2022 Infusion Hematology and Oncology 03/10/2023 Office Visit Cardiology Ofelia Rubalcava MD [facility] [address] [place], [place] [address] (Wo rk) documented as of this encounter Visit Diagnoses Not on filedocumented in this encounter Care Teams Industrial Technology Education Teacher Relationship Specialty Start Date End Date Harshal Godfrey MD PCP - General Family Medicine 02/18/22 [facility] [address] [place], [place] [phone] documented as of this encounter
--- OUTSIDE RECORDS SUMMARY | 2022-08-21 01:35 | XMS_ITS | Encounter Summary ---
:1950 Author Organization [place] [address] Care Team Providers Name Role Phone Harshal Gdofrey MD Primary Care Provider Encounter Details Date Type Department Care Team Description 06/15/2022 Multidisciplinary Care Hematology and Reddy Hernandez Committee Oncology at [facility] MD Josse [facility] [address] [place] ONCOLOGY [address] [place], [place] [phone] [facility] Social History Tobacco Use Types Packs/Day Years [...] encounter Progress Notes Reddy Hernandez MD - 06/15/2022 4:14 PM EDT GI - Tumor Board Note Due to lack of time, presentation moved to 06/23/22. Please refer to that note. documented in this encounter Plan of Treatment Upcoming Encounters Date Type Specialty Care Team Description 08/21/2022 Scheduled View Only Hematology and Dameon Hernandez MD [facility] [place] [address] On[address] [address] 08/21/2022 TH Visit (TeleHealth) Hematology and Reddy Hernandez Oncology [facility] [address] [place], [place] [address] (Wo rk) 08/21/2022 Infusion Hematology and Oncology 08/28/2022 Office Visit Hematology and Reddy Hernandez Oncology [facility] [address] [place], [place] [address] (Wo leslee) 08/28/2022 Infusion Hematology and Oncology 09/11/2022 Office Visit Hematology and Reddy Hernandez MD [facility] [place] [address] Oncology [address] HEMATOLOGY AND [place], [place] [address] 09/11/2022 Infusion Hematology and Oncology 09/18/2022 Office Visit Hematology and LaRNikky stallworth, Oncology [address] HEMATOLOGY AND [place], [place] [phone] (Wo rk) 09/18/2022 Infusion Hematology and Oncology 03/10/2023 Office Visit Cardiology Ofelia Rubalcava MD [facility] [address] [place], [place] [address] (Wo rk) documented as of this encounter Visit Diagnoses Not on filedocumented in this encounter Care Teams Health Care Coach Relationship Specialty Start Date End Date Harshal Godfrey MD PCP - General Family Medicine 02/18/[address] [place] [address] documented as of this encounter
--- OUTSIDE RECORDS SUMMARY | 2022-08-21 01:35 | XMS_ITS | Encounter Summary ---
:1950 Author Organization [facility] [place] [address] Care Team Providers Name Role Phone Harshal Godfrey MD Primary Care Provider [phone] Reason for Visit Reason Onset Date Comments Establish Care 06/15/2022 Encounter Details Date Type Department Care Team Description 06/15/2022 Patient Outreach Hematology and Oncology Rosalinda Gibbs , KALIE Establish Care at [facility] [place] [address] Social History Tobacco Use Types Packs/Day [...] Scheduled View Only Hematology Dameon Young MD [facility] [place] [address] HEMATOLOGY AND [place], [place] [phone] 08/21/2022 TH Visit (TeleHealth) Hematology Reddy Young Oncology [facility] [address] [place], [place] [address] (Wo rk) 08/21/2022 Infusion Hematology and Oncology 08/28/2022 Office Visit Reddy Thompson Oncology [facility] [address] [place], [place] [address] (Wo rk) 08/28/2022 Infusion Hematology and Oncology 09/11/2022 Office Visit Reddy Thompson MD [facility] [place] [address] [address] [place] [address] 09/11/2022 Infusion Hematology and Oncology 09/18/2022 Office Visit Hematology and Nikky Pak Oncology [address] [place] [address] (Wo rk) 09/18/2022 Infusion Hematology and Oncology 03/10/2023 Office Visit Cardiology Ofelia Rubalcava MD [facility] [address] [place], [place] [address] (Wo rk) documented as of this encounter Visit Diagnoses Not on filedocumented in this encounter Care Teams Radiology Nurse Relationship Specialty Start Date End Date Harshal Godfrey MD PCP - General Family Medicine 02/18/22 [address] [place] [address] documented as of this encounter
--- OUTSIDE RECORDS SUMMARY | 2022-08-21 01:35 | XMS_ITS | Encounter Summary ---
:1950 Author Organization [facility] [place] [address] Care Team Providers Name Role Phone Harshal Godfrey MD Primary Care Provider [phone] Encounter Details Date Type Department Care Team Description 06/16/2022 Hospital Encounter Hematology and Adenoca rcinoma of unknown primary; [place] [phone] Social History Tobacco Use Types Packs/Day Years [...] View Only Hematology and Dameon Hernandez MD [facility] [place] [address] Oncology Nikky Pak [address] HEMATOLOGY [place], [place] [phone] 08/21/2022 TH Visit (TeleHealth) Hematology and Reddy Hernandez , Oncology [facility] [address] [place], [place] [address] (Wo rk) 08/21/2022 Infusion Hematology and Oncology 08/28/2022 Office Visit Hematology and Reddy Hernandez Oncology [facility] DR DANGEL[address] [place], [place] [address] (Wo rk) 08/28/2022 Infusion Hematology and Oncology 09/11/2022 Office Visit Hematology and Reddy Hernandez MD [facility] [place] [address] [address] HEMATOLOGY [place], [place] [address] 09/11/2022 Infusion Hematology and Oncology 09/18/2022 Office Visit Hematology and Nikky Pak, Oncology [address] HEMATOLOGY [place], [place] [phone] (Wo rk) 09/18/2022 Infusion Hematology and Oncology 03/10/2023 Office Visit Cardiology Ofelia Rubalcava MD [facility] [address] [place], [place] [address] (Wo rk) documented as of this encounter Procedures Procedure Name Priority Date/Time Associated Diagnosis Comme nts HEMOGRAM Routine 06/16/2022 12:15 Adenocarcinoma of Result s for this PM EDT unknown primary procedure ar e in the results section. DIFFERENTIAL, Routine 06/16/2022 12:15 Adenocarcinoma of Resul ts for this AUTOMATED PM EDT unknown primary procedure ar e in the results section. IRON AND TIBC Routine 06/16/2022 12:15 Results fo r this PM EDT procedure are i n the results section. HC CARBOHYDRATE Routine 06/16/2022 12:15 Adenocarcinoma of Res ults for this ANTIGEN 19-9 PM EDT unknown primary procedure are in Cholangiocarcinoma the resul ts section. AFP TUMOR MARKER Routine 06/16/2022 12:15 Results for this PM EDT procedure are i n the results section. HC VENIPUNCTURE Routine 06/16/2022 12:15 Adenocarcinoma of PM EDT unknown primary FERRITIN Routine 06/16/2022 12:15 Results for this PM EDT procedure are i n the results section. COMPREHENSIVE Routine 06/16/2022 12:15 Adenocarcinoma of Resul ts for this METABOLIC PANEL PM EDT unknown primary procedure are in (NON-FASTING) the results section. documented in this encounter Results (ABNORMAL) Iron and TIBC (06/16/2022 12:15 PM EDT) P athologist Signature Iron 26 (L) 30 - 150 [facility] m[facility]dL [facility] TIBC 372 250 - 450 [facility] mcg/dL [facility] Iron Saturation 7 (L) 20 - 50 % [facility] Specimen Anatomical Collection Method Collection Time Receive d Time (Source) Location / / Volume Laterality Blood Venous Draw / 06/16/2022 12:15 06/16/2022 Unknown PM EDT 12:39 PM EDT Resulting Agency Comment Spec In Lab Reddy Hernandez MD CHEMISTRY ORDERABLES Performing Organization Address City/State/ZIP Code Phon e Number [facility] [place] [address] Ferritin (06/16/2022 12:15 PM EDT) athologist Signature Ferritin 46 30 - 400 [facility] ng/mL [facility] Comment: Pediatric reference ranges not verified at [facility], interpret with caution. Reference ranges for females greater tenzin n 50 years of age approach values for men, i.e., 30-400 ng/mL. Specimen Anatomical Collection Method Collection Time Receive d Time (Source) Location / / Volume Laterality Blood Venous Draw / 06/16/2022 12:15 06/16/2022 Unknown PM EDT 12:39 PM EDT Resulting Agency Comment Spec In Lab Reddy Hernandez MD CHEMISTRY ORDERABLES Performing Organization Address City/[facility]/ZIP [facility] Phon e Number [address] AFP tumor marker (06/16/2022 12:15 PM EDT) athologist [facility] AFP 2.1 <=8.3 ng/mL [facility] Comment: This result was [...] Hernandez MD CHEMISTRY ORDERABLES Performing Organization Address City/[facility] Phon e Number [address] (ABNORMAL) Differential, Automated (06/16/2022 12:15 PM EDT) [facility] gist Method Time Signature Neutrophils % 77.1 % [facility] Neutr Abs (ANC) 9.28 (H) 1.70 - [facility] 6.10 [facility] x10(3)/[facility] LABORATORY Lymphocytes % 9.6 % [facility] Lymphocytes Abs 1.2 0.9 - 3.2 [facility] x10(3)/[facility] LABORATORY Monocytes % 8.6 % [facility] Monocyte Abs 1.0 (H) 0.3 - 0.9 [facility] x10(3)/[facility] LABORATORY Eosinophils % 2.9 % [facility] Eosinophils Abs 0.4 0.0 - 0.4 [facility] x10(3)/[facility] LABORATORY Basophils % 1.0 % [facility] Basophils Abs 0.1 0.0 - 0.1 [facility] x10(3)/[facility] LABORATORY Immature Gran % 0.80 % [facility] Comment: Immature granulocytes(IG's)percentage an d absolute count will include metamyelocytes, myelocytes, and promyelo cytes. Blood smears from CBCs yielding IG's will be scanned manually for concor dance. If this scan disagrees with the automated IG or if promyelocytes are not ed, a manual differential will be performed. Zohreh Gran Abs 0.10 (H) 0.00 - 0.04 x10(3)/[facility] LABORATORY Specimen Anatomical Collection Method Collection Time Receive d Time (Source) Location / / Volume Laterality Blood 06/16/2022 12:15 06/16/2022 PM EDT 12:28 PM EDT Resulting Agency Comment Spec In Lab Reddy Hernandez MD HEMATOLOGY ORDERABLES Performing Organization Address City/State/[place] [address] (ABNORMAL) Hemogram (06/16/2022 12:15 PM EDT) Analysis Performed At Patho logist Time Signature WBC 12.0 (H) 4.0 - 9.5 [facility] x10(3)/[facility] LABORATORY RBC 4.84 4.00 - [facility] 5.21 [facility] x10(6)/[facility] LABORATORY Hemoglobin 10.7 (L) 11.7 - [facility] 15.5 g/dL [facility] Hematocrit 37.7 35.7 - [facility] 45.8 % [facility] MCV 77.9 (L) 82.6 - [facility] 94.4 fL [facility] MCH 22.1 (L) 27.1 - [facility] 32.0 [facility] LABORATORY MCHC 28.4 (L) 31.7 - [place] 35.0 g/dL [facility] Platelets 336 145 - 357 [place] x10(3)/[facility] LABORATORY RDWSD 50.4 (H) 37.0 - [place] 46.0 [facility] LABORATORY RDWCV 18.1 (H) 11.5 - [facility] 14.1 % [facility] MPV 9.3 7.6 - 12.9 [facility] [place] [facility] LABORATORY nRBC % Auto 0.0 % [facility] nRBC Abs Auto 0.000 0.000 - [place] 0.000 [facility] x10(3)/[facility] LABORATORY Specimen Anatomical Collection Method Collection Time Receive d Time (Source) Location / / Volume Laterality Blood 06/16/2022 12:15 06/16/2022 PM EDT 12:28 PM EDT Resulting Agency Comment Spec In Lab Reddy Hernandez MD HEMATOLOGY ORDERABLES Performing Organization Address City/[facility]/ZIP [place] [address] (ABNORMAL) Carbohydrate Antigen 19-9 (06/16/2022 12:15 PM EDT) athologist Signature CA 19-9 843.0 (H) <=35.0 [place] u/ml [facility] Comment: This result was [...] Organization Address City/State/[place]IP [place] [address] (ABNORMAL) Comprehensive metabolic panel (non-fasting) (06/16/2022 12:15 PM EDT) P athologist Signature Glucose Lvl 96 65 - 199 [place] mg/[facility] LABORATORY Comment: Diabetes: >=200 mg/dL plus symp toms BUN 24 (H) 8 - 18 mg/dL [facility] Creatinine 0.97 0.70 - 1.20 mg/dL [facility] Sodium 138 135 - 145 mmol/L [facility] Potassium 4.6 3.5 - 5.0 mmol/L [facility] Comment: Please note: ??Patients with WBC >100,00 0 may have falsely elevated Potassium levels. ??For accurate Potassium quantif ication in these patients send serum separator tube (gold top) for subsequent determinations. ??Contact the Clinical Chemistry Laboratory if there are any qu estions. Chloride 103 98 - 107 mmol/L [facility] CO2 25 22 - 31 mmol/L [facility] Anion Gap 10 5 - 15 mmol/L [facility] Calcium 9.1 8.5 - 10.5 mg/dL [facility] Total Protein 6.9 6.1 - 8.0 g/dL [facility] Albumin 3.9 3.2 - 5.2 g/dL [facility] AST 23 0 - 30 unit/L [facility] ALT 12 0 - 30 unit/L [facility] Alk Phos 71 35 - 105 unit/L [facility] Total Bilirubin 0.3 0.2 - 1.3 mg/dL [facility] Estimated GFR 62 >=60 mL/min/1.73 m?? 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
--- OUTSIDE RECORDS SUMMARY | 2022-08-21 01:35 | XMS_ITS | Encounter Summary ---
:1950 Author Organization [facility] [place] [address] Care Team Providers Name Role Phone Harshal Godfrey MD Primary Care Provider [phone] Encounter Details Date Type Department Care Team Description 05/15/2022 Orders Only Gastroenterology at [facility] Sal, Jarrell Liver mass (Primary [facility] Aleena Felix MD Dx) [place] [address] [place] [address] [facility] [place]STRO[place] [address] Social History Tobacco Use Types Packs/Day Years [...] Dameon Hernandez MD [facility] [place] [address] On[address] HEMATOLOGY AND [place], [place] [phone] 08/21/2022 TH Visit (TeleHealth) Hematology and Reddy Hernandez Oncology [facility] DR [place] [place], [place] [address] (Wo rk) 08/21/2022 Infusion Hematology and Oncology 08/28/2022 Office Visit Hematology Reddy Young Oncology [facility] [address] [place], [place] [address] (Wo rk) 08/28/2022 Infusion Hematology and Oncology 09/11/2022 Office Visit Reddy Thompson MD [facility] [place] [address] [address] [place] AND [place], [place] [address] 09/11/2022 Infusion Hematology and Oncology 09/18/2022 Office Visit Hematology and Nikky Pak, Oncology [address] [place] [address] (Wo rk) 09/18/2022 Infusion Hematology and Oncology 03/10/2023 Office Visit Cardiology fOelia Rubalcava MD [facility] Dr [place], [place] [address] (Wo rk) Scheduled Orders Name Type Priority Associated Diagnoses Order S chedule ENDOSCOPY CASE REQUEST: Procedures Routine Liver mass Orde red: 05/15/2022 UPPER EUS- ENDOSCOPIC ULTRASOUND documented as of this encounter Visit Diagnoses Diagnosis Liver mass - Primary Unspecified disorder of liver Colon cancer metastasized to liver Malignant neoplasm of colon, unspecified site documented in this encounter Care Teams Sales Service Professional Relationship Specialty Start Date End Date Harshal Godfrey MD PCP - General Family Medicine 02/18/22 [address] [place] [address] documented as of this encounter
--- OUTSIDE RECORDS SUMMARY | 2022-08-21 01:35 | XMS_ITS | Encounter Summary ---
:1950 Author Organization [facility] Address [facility] [place] [address] Care Team Providers Name Role Phone Harshal Godfrey MD Primary Care Provider [phone] Encounter Details Date Type Department Care Team Description 05/15/2022 Hospital Encounter XRay at [facility] Abdulkadir Raya, S/P AVR [address] [place] [address] [place] [address] [facility] [phone] CARDIAC SURGERY [place], [place] [address] (Wo rk) Social History Tobacco [...] Scheduled View Only Dameon Thompson MD [facility] [place] [address] [address] [place], [place] [phone] 08/21/2022 TH Visit (TeleHealth) Hematology Reddy Young Oncology [facility] [address] [place], [place] [address] (Wo rk) 08/21/2022 Infusion Hematology and Oncology 08/28/2022 Office Visit Reddy Thompson Oncology [facility] [address] [place], [place] [address] (Wo rk) 08/28/2022 Infusion Hematology and Oncology 09/11/2022 Office Visit Reddy Thompson MD [facility] [place] [address] [address] [place], [place] [phone] 09/11/2022 Infusion Hematology and Oncology 09/18/2022 Office Visit Hematology and Nikky Pak Oncology [address] [place], [place] [phone] (Wo rk) 09/18/2022 Infusion Hematology and Oncology 03/10/2023 Office Visit Cardiology Ofelia Rubalcava MD [facility] [place], [place] [address] (Wo leslee) documented as of this encounter Procedures Procedure Name Priority Date/Time Associated Diagnosis Comme nts XR CHEST PA AND Routine 05/15/2022 11:25 AM S/P AVR Resul ts for this LATERAL EDT procedure are i n the results section. documented in this encounter Results XR Chest PA & Lateral (Generic) (05/15/2022 11:25 AM EDT) Anatomical Region Laterality Modality Chest N/A Digital Radiography Specimen (Source) Anatomical Location Collection Method / Collectio n Time Received Time / Laterality Volume Impressions 05/15/2022 2:29 PM EDT No acute cardiopulmonary process. I have personally reviewed the image(s) and the resident's interpretation and agree with the findings, Lukas Champion MD at 05/15/2022 2:29 PM Thank you for letting us participate in the care of this patient. ??If you are a health care provider and have any questi ons regarding this report, please contact the number below. ??For patients who have questions please contact the health rehab care assistant that requested your imaging first. ? Narrative 05/15/2022 2:29 PM EDT EXAMINATION: XR CHEST PA AND LATERAL (GENERIC) CLINICAL HISTORY: s/p AVR TECHNIQUE: PA and lateral views of the chest COMPARISON: Chest radiograph 04/07/2022. FINDINGS: A prosthetic aortic valve is seen.. Medi an sternotomy wires are intact. Low lung volumes accentuate bronchovascu lar markings. The lungs are otherwise clear. No pleural effusion or pneumothorax. Cardiomediastinal silhouette and hilar c ontours are normal. No acute osseous abnormality. Procedure Note Lukas Champion MD - 05/15/2022 EXAMINATION: XR CHEST PA AND LATERAL (ZenedyIC) CLINICAL HISTORY: s/p AVR TECHNIQUE: PA and lateral views of the chest COMPARISON: Chest radiograph 04/07/2022. FINDINGS: A prosthetic aortic valve is seen.. Medi an sternotomy wires are intact. Low lung volumes accentuate bronchovascu lar markings. The lungs are otherwise clear. No pleural effusion or pneumothorax. Cardiomediastinal silhouette and hilar c ontours are normal. No acute osseous abnormality. IMPRESSION No acute cardiopulmonary process. I have personally reviewed the image(s) and the resident's interpretation and agree with the findings, Lukas Champion MD at 05/15/2022 2:29 PM Thank you for letting us participate in the care of this patient. If you are a health care provider and have any questi ons regarding this report, please contact the number below. For patients w ho have questions please contact the health rehab care assistant that requested your imaging first. Abdulkadir Raya MD IMG DX ORDERABLES documented in this encounter Visit Diagnoses Diagnosis S/P AVR Heart valve replaced by other means Colon cancer metastasized to liver Malignant neoplasm of colon, unspecified site documented in this encounter Care Teams Director [place] Relationship Specialty Start Date End Date Harshal Godfrey MD PCP - General Family Medicine 02/18/22 [address] [place] [address] documented as of this encounter
--- OUTSIDE RECORDS SUMMARY | 2022-08-21 01:35 | XMS_ITS | Encounter Summary ---
:1950 Author Organization [facility] [place] [address] Care Team Providers Name Role Phone Harshal Godfrey MD Primary Care Provider [phone] Encounter Details Date Type Department Care Team Description 04/29/2022 Office Visit Cardiology at Ofelia Rubalcava MD Coronary artery disease involving swanson ry bypass graft of [place] heart without angina pectoris; [facility] S/P AVR (aortic valve replac ement) and aortoplasty and CABG; [facility] Primary hypertension [facility] [address] [id number] [place], [place] [phone] (Work) [phone] Social History Tobacco Use Types Packs/Day Years [...] Sign Reading Time Taken Comments Blood Pressure 133/47 04/29/2022 10:05 AM EDT Pulse 83 04/29/2022 10:05 AM EDT Temperature - - Respiratory Rate - - Oxygen Saturation - - Inhaled Oxygen Concentration - - Weight 97.1 kg (214 lb) 04/29/2022 10:05 AM EDT Height 147.3 cm (4' 10) 04/29/2022 10:05 AM EDT Body Mass Index 44.73 04/29/2022 10:05 AM EDT documented in this encounter Progress Notes Ofelia Rubalcava MD - 04/29/2022 10:00 AM EDT CARDIOLOGY OUTPATIENT FOLLOW-UP NOTE PRIMARY CARE PROVIDER: Harshal Godfrey MD REFERRING PROVIDER: Harshal Godfrey PROBLEM LIST: Patient Active Problem List Diagnosis ??? Bradycardia ??? Left atrial dilation ??? Aortic stenosis, severe ??? Lymphadenopathy ??? Pulmonary nodules ??? Mediastinal [...] Outpatient Medications Medication Sig Dispense Refill ??? clopidogreL (Plavix) 75 mg Tablet Take 1 tablet by mouth daily for 360 days. 90 tablet 3 ??? metoproloL tartrate (Lopressor) 25 mg Tablet Take 0.5 tablets by mouth 2 times daily. 30 tablet 3 ??? furosemide (Lasix) 20 mg Tablet Take 2 tablets by mouth 2 times daily for 14 days, THEN 1 tablet2 times daily for 14 days. 84 tablet 0 ??? acetaminophen (Tylenol) 500 mg Tablet Take 2 tablets by mouth every 6 hours as needed for Pain. ??? AMIOdarone (PACERONE) 400 mg Tablet Take 1 tablet by mouth daily for 30 days. 30 tablet 0 ??? dextromethorphan-guaiFENesin (Robitussin) 10-100 mg/5 mL Syrup Take 5 mLs by mouth 3 times dailyas needed for Cough. (Patient not taking: Reported on 04/20/2022) ??? amoxicillin (Amoxil) 500 mg Capsule Take [...] female. HPI This 72-year-old woman presents for cardiac follow-up. After her last visit she was evaluated at [facility], initially with a cardiac catheterization. This disclosed multivessel coronary disease (50% left main coronary stenosis, 98% proximal circumflex stenosis, 60% RCA stenosis). Subsequently she underwent bioprosthetic aortic valve replacement, aortoplasty and two-vessel coronary artery bypass grafting on March 30. She had a little bit of postoperative paroxysmal atrial fibrillation for which she has been on amiodarone. She is scheduled to see the cardiac surgeon on May 15 and had an echocardiogram done at that time. She is also following with pulmonary and has had a PET scan, and is scheduled for a bronchoscopy. She reports that overall she feels quite well. She has noted improvement in her respiratory status since surgery. Her endurance is getting better. She is sleeping well at night. She had some edema but this has resolved. She plans to participate in cardiac rehab after her surgical follow-up. A [facility] to [facility] for this Review of System Review of Systems All other systems reviewed and are negative. [...] Not on file Occupational History ??? 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 Occupation: retired Tobacco Use ??? Smoking status: Former Smoker Types: Cigarettes Quit date: 03/23/2012 Years since quittin.1 ??? Smokeless tobacco: Never Used Vaping Use [...] Social Determinants of Health Financial Resource Strain: Not on file Food Insecurity: Not on file Transportation Needs: Not on file Physical Activity: Not on file Housing Stability: Not on file Objective: Physical Exam Vitals and nursing note reviewed. Constitutional: Comments: Obese no acute distress Neck: Comments: Unable to assess JVP. Carotid pulsations are palpable, normal upstroke, bilateral transmitted murmur Cardiovascular: Comments: Heart is regular S2 widely split, 2/6 systolic ejection quality murmur Pulmonary: Effort: Pulmonary effort is normal. Breath sounds: Normal breath sounds. Abdominal: Tenderness: There is no abdominal tenderness. Musculoskeletal: Comments: No significant edema Skin: General: Skin is warm and dry. EKG today shows sinus rhythm vertical axis, right bundle branch block. Right bundle branch block is similar to March 31, 2022 Assessment and Plan: #1. Coronary artery disease status post CABG and aortic valve replacement . Patient is doing well following her bypass surgery and aortic valve replacement. She has routine follow-up scheduled with the surgeon in May, plans to initiate cardiac rehab thereafter . Blood pressure is well controlled. Physical examination is stable. EKG is also stable. No medication changes or testing was recommended today. She will keep her follow-ups at [facility] as scheduled. We will plan to reevaluate here in 3 months Thank you for the opportunity to participate in this patient's cardiovascular care. All questions were answered and I look forward to the next visit. documented in this encounter Plan of Treatment Upcoming Encounters Date Type Specialty Care Team Description 08/21/2022 Scheduled View Only Hematology and Dameon Hernandez MD [facility] [place] [address] On[address] [address] 08/21/2022 TH Visit (TeleHealth) Reddy Thompson Oncology [facility] [address] [place], [place] [address] (Wo rk) 08/21/2022 Infusion Hematology and Oncology 08/28/2022 Office Visit Hematology and Reddy Hernandez Oncology [facility] [address] [place] [place], [place] [address] (Wo rk) 08/28/2022 Infusion Hematology and Oncology 09/11/2022 Office Visit Hematology and Reddy Hernandez MD [facility] [place] [address] Oncology [address] [place] [address] 09/11/2022 Infusion Hematology and Oncology 09/18/2022 Office Visit Hematology and Nikky Pak, Oncology [address] HEMATOLOGY AND [place], [place] [address] (Wo rk) 09/18/2022 Infusion Hematology and Oncology 03/10/2023 Office Visit Cardiology Ofelia Rubalcava MD [facility] [place], [place] [address] (Wo rk) documented as of this encounter Visit Diagnoses Diagnosis Coronary artery disease involving swanson ry bypass graft of [place] heart without angina pectoris S/P AVR (aortic valve replacement) and a ortoplasty and CABG Heart valve replaced by other means Primary hypertension Unspecified essential hypertension Colon cancer metastasized to liver Malignant neoplasm of colon, unspecified site documented in this encounter Care Teams Cotton Weigher Relationship Specialty Start Date End Date Harshal Godfrey MD PCP - General Family Medicine 02/18/22 [facility] [address] [place], [place] [address] documented as of this encounter
--- OUTSIDE RECORDS SUMMARY | 2022-08-21 01:35 | XMS_ITS | Encounter Summary ---
:1950 Author Organization [facility] [place] [address] Care Team Providers Name Role Phone Harshal Godfrey MD Primary Care Provider Encounter Details Date Type Department Care Team Description 05/18/2022 Telephone Gastroenterology at [facility] [place] [address] Social History Tobacco Use Types Packs/Day [...] this encounter Miscellaneous Notes Telephone Encounter - Oma Murillo - 05/18/2022 4:43 PM EDT Placed outgoing phone call to patient in order to schedule a procedure. Phone Call Outcome: Left voicemail asking for return call. This was the 1st attempt Urgent Orders are in If the call is returned, it can be handled by: Any Endoscopy Cashier Receptionist documented in this encounter Plan of Treatment Upcoming Encounters Date Type Specialty Care Team Description 08/21/2022 Scheduled View Only Hematology and Dameon Hernandez MD [facility] [address] [address] [place] [address] 08/21/2022 TH Visit (TeleHealth) Hematology Reddy Young Oncology [facility] [address] [place], [place] [address] (Wo rk) 08/21/2022 Infusion Hematology and Oncology 08/28/2022 Office Visit Hematology Reddy Young Oncology [facility] [address] [place], [place] [address] (Wo rk) 08/28/2022 Infusion Hematology and Oncology 09/11/2022 Office Visit Reddy Thompson MD [facility] [place] [address] [address] HEMATOLOGY AND [place], [place] [address] 09/11/2022 Infusion Hematology and Oncology 09/18/2022 Office Visit Hematology and LaRNikky stallworth, Oncology [address] HEMATOLOGY AND [place], [place] [phone] (Wo rk) 09/18/2022 Infusion Hematology and Oncology 03/10/2023 Office Visit Cardiology Ofelia Rubalcava MD [facility] Dr [place], [place] [address] (Wo rk) documented as of this encounter Visit Diagnoses Not on filedocumented in this encounter Care Teams It Recruiter Relationship Specialty Start Date End Date Harshal Godfrey MD PCP - General Family Medicine 02/18/[address] [place] [address] documented as of this encounter
--- OUTSIDE RECORDS SUMMARY | 2022-08-21 01:35 | XMS_ITS | Encounter Summary ---
:1950 Author Organization [facility] [address] Care Team Providers Name Role Phone Harshal Godfrey MD Primary Care Provider [phone] Encounter Details Date Type Department Care Team Description 05/08/2022 Telephone Pulmonology at [facility] [place] [address] Social History Tobacco Use Types Packs/Day [...] Dameon Hernandez MD [facility] [place] [address] On[address] HEMATOLOGY AND [place], [place] [phone] 08/21/2022 TH Visit (TeleHealth) Hematology and Reddy Hernandez Oncology [facility] [address] [place] [place], [place] [address] (Wo rk) 08/21/2022 Infusion Hematology and Oncology 08/28/2022 Office Visit Hematology and Reddy Hernandez Oncology [facility] [address] [place], [place] [address] (Wo rk) 08/28/2022 Infusion Hematology and Oncology 09/11/2022 Office Visit Sharon and Reddy Hernandez MD [facility] [place] [address] [address] [place] AND [place], [place] [phone] 09/11/2022 Infusion Hematology and Oncology 09/18/2022 Office Visit Hematology and Nikky Pak, Oncology [address] HEMATOLOGY AND [place], [place] [phone] (Wo rk) 09/18/2022 Infusion Hematology and Oncology 03/10/2023 Office Visit Cardiology Ofelia Rubalcava MD [facility] [place] [address] (Wo rk) documented as of this encounter Visit Diagnoses Not on filedocumented in this encounter Care Teams Investor Relations Associate Relationship Specialty Start Date End Date Harshal Godfrey MD PCP - General Family Medicine 02/18/[address] [place] [address] documented as of this encounter
--- OUTSIDE RECORDS SUMMARY | 2022-08-21 01:35 | XMS_ITS | Encounter Summary ---
:1950 Author Organization [facility] Address [facility] [place] [address] Care Team Providers Name Role Phone Harshal Godfrey MD Primary Care Provider [phone] Reason for Visit Reason Onset Date Comments Other 04/30/2022 Holding Plavix befor e Bronchoscopy Encounter Details Date Type Department Care Team Description 04/30/2022 Telephone Pulmonology at [facility] Makenzie Cooley, Other (Holding Plavix [facility] Aleena marrero RN before Bronchoscopy) [place] [address] Social History Tobacco Use Types Packs/Day [...] this encounter Miscellaneous Notes Telephone Encounter - Makenzie Cooley RN - 04/30/2022 8:04 AM EDT I have sent a message to Dr. Raya with Cardiac Surgery to confirm if pt is ok to hold Plavix [address] Raya responded on 04/23/2022, stating. Okay to hold before Bronch and restart afterwards. I have called pt and instructed to hold Plavix 5 days before her Bronchoscopy. Pt verbally expressedunderstanding and repeated back instructions that she will stop Plavix on 05/08/2022. I have also asked pt if she is currently using home oxygen. Pt states she is currently NOT on home oxygen. I have notified pt that I will call her back on 05/12/2022 for a more detailed instructions on her Bronchoscopy. No other questions/ concerns from pt at this time. MAR Valdez, RN Department of Pulmonary 5C, [facility] Pager: [phone] documented in this encounter Plan of Treatment Upcoming Encounters Date Type Specialty Care Team Description 08/21/2022 Scheduled View Only Hematology and Dameon Hernandez MD [facility] [address] Oncology Nikky Pak, [address] [address] 08/21/2022 TH Visit (TeleHealth) Hematology and Reddy Hernandez , Oncology [facility] [place] [address] (Wo rk) 08/21/2022 Infusion Hematology and Oncology 08/28/2022 Office Visit Hematology and Reddy Hernandez Oncology [facility] [place], [place] [address] (Wo rk) 08/28/2022 Infusion Hematology and Oncology 09/11/2022 Office Visit Hematology and Reddy Hernandez MD [facility] [place] [address] [address] HEMATOLOGY AND [place], [place] [address] 09/11/2022 Infusion Hematology and Oncology 09/18/2022 Office Visit Hematology and Nikky Pak, Oncology [address] HEMATOLOGY AND [place], [place] [phone] (Wo rk) 09/18/2022 Infusion Hematology and Oncology 03/10/2023 Office Visit Cardiology Ofelia Rubalcava MD [facility] [address] [place], [place] [address] (Wo rk) documented as of this encounter Visit Diagnoses Not on filedocumented in this encounter Care Teams Mandrel Press Hand Relationship Specialty Start Date End Date Harshal Godfrey MD PCP - General Family Medicine 02/18/22 [facility] [address] [place], [place] [address] documented as of this encounter
--- OUTSIDE RECORDS SUMMARY | 2022-08-21 01:35 | XMS_ITS | Encounter Summary ---
:1950 Author Organization [facility] Address [facility] [place] [address] Care Team Providers Name Role Phone Harshal Godfrey MD Primary Care Provider [phone] Reason for Visit Reason Onset Date Comments Other 05/12/2022 Resuming Plavix Encounter Details Date Type Department Care Team Description 05/12/2022 Telephone Pulmonology at [facility] Makenzie Cooley, Other (Resuming Plavix) [facility] [place] [address] Social History Tobacco Use Types Packs/Day [...] place to sleep or slept in a fdc (including now)? Sex Assigned at Date Recorded Not on file documented as of this encounter Miscellaneous Notes Telephone Encounter - Makenzie Cooley RN - 05/12/2022 8:33 AM EDT I have called pt to notify that because her Bronch was cancelled, she will need to resume her Plavixfor now and I will call her again once her Bronch gets rescheduled to give her instructions on holding the Plavix. Pt verbalized understanding and confirmed that she already resumed her Plavix. MAR Valdez, RN Department of Pulmonary 5C, [facility] Pager: [phone] documented in this encounter Plan of Treatment Upcoming Encounters Date Type Specialty Care Team Description 08/21/2022 Scheduled View Only Hematology Dameon Young MD [facility] [place] [address] Oncology Nikky Pak [address] [place] [address] 08/21/2022 TH Visit (TeleHealth) Reddy Thompson Oncology [facility] [address] [place], [place] [address] (Wo rk) 08/21/2022 Infusion Hematology and Oncology 08/28/2022 Office Visit Reddy Thompson Oncology [facility] [address] [place], [place] [address] (Wo rk) 08/28/2022 Infusion Hematology and Oncology 09/11/2022 Office Visit Hematology and Reddy Hernandez MD [facility] [place] [address] [address] HEMATOLOGY AND [place], [place] [address] 09/11/2022 Infusion Hematology and Oncology 09/18/2022 Office Visit Hematology and Nikky Pak, Oncology [address] HEMATOLOGY AND [place], [place] [address] (Wo rk) 09/18/2022 Infusion Hematology and Oncology 03/10/2023 Office Visit Cardiology Ofelia Rubalcava MD [facility] Dr [place] [address] (Wo rk) documented as of this encounter Visit Diagnoses Not on filedocumented in this encounter Care Teams Trial Examiner Relationship Specialty Start Date End Date Harshal Godfrey MD PCP - General Family Medicine 02/18/22 [address] [place] [address] documented as of this encounter
--- OUTSIDE RECORDS SUMMARY | 2022-08-21 01:35 | XMS_ITS | Encounter Summary ---
:1950 Author Organization [facility] [place] [address] Care Team Providers Name Role Phone Harshal Godfrey MD Primary Care Provider [phone] Encounter Details Date Type Department Care Team Description 05/14/2022 Telephone Pulmonology at [facility] [place] [address] Social History Tobacco Use Types Packs/Day [...] place to sleep or slept in a usp (including now)? Sex Assigned at Date Recorded Not on file documented as of this encounter Plan of Treatment Upcoming Encounters Date Type Specialty Care Team Description 08/21/2022 Scheduled View Only Hematology and Dameon Hernandez MD [facility] [place] [address] HEMATOLOGY AND [place], [place] [phone] 08/21/2022 TH Visit (TeleHealth) Hematology and Reddy Hernandez Oncology [facility] [address] [place], [place] [address] (Wo rk) 08/21/2022 Infusion Hematology and Oncology 08/28/2022 Office Visit Hematology and Reddy Hernandez Oncology [facility] [address] [place], [place] [address] (Wo rk) 08/28/2022 Infusion Hematology and Oncology 09/11/2022 Office Visit Sharon and Reddy Hernandez MD [facility] [place] [address] [address] [place] AND [place], [place] [phone] 09/11/2022 Infusion Hematology and Oncology 09/18/2022 Office Visit Hematology and Nikky Pak, Oncology [address] HEMATOLOGY AND [place], [place] [phone] (Wo rk) 09/18/2022 Infusion Hematology and Oncology 03/10/2023 Office Visit Cardiology Ofelia Rubalcava MD [facility] [place] [address] (Wo rk) documented as of this encounter Visit Diagnoses Not on filedocumented in this encounter Care Teams Steersman Relationship Specialty Start Date End Date Harshal Godfrey MD PCP - General Family Medicine 02/18/[address] [place] [address] documented as of this encounter
--- OUTSIDE RECORDS SUMMARY | 2022-08-21 01:35 | XMS_ITS | Encounter Summary ---
:1950 Author Organization [facility] Address [facility] [place] [address] Care Team Providers Name Role Phone Harshal Godfrey MD Primary Care Provider [phone] Encounter Details Date Type Department Care Team Description 05/27/2022 Surgery Gastroenterology at [facility] Rojas Donald UPPER EUS- ENDOSCOPIC [facility] Aleena Elizondo [place] [address] [facility] [phone] DR GASTROENTEROLOGY [place], [place] [address] Social History Tobacco Use Types [...] Sign Reading Time Taken Comments Blood Pressure 95/43 05/27/2022 8:30 AM EDT Pulse 85 05/27/2022 8:25 AM EDT Temperature 36.1 ??C (97 ??F) 05/27/2022 7:06 AM EDT Respiratory Rate 18 05/27/2022 8:30 AM EDT Oxygen Saturation 100% 05/27/2022 8:30 AM EDT Inhaled Oxygen Concentration - - [...] the day after the procedure, use an ykhg-udf-fsskqdn spray to numb your throat. Sucking on [...] occurs, please contact your Doctor. Please call [phone] before 8pm Mon-Fri with problems, questions or concerns. If you call after 8pm or on weekends, call the Hospital at [phone] and ask to speak to the Education Managers precision agronomist and the coremaking machine operator will contact that person for you. When should you call for help? Call [phone] anytime you think you may need emergency [...] any problems. Where can you learn more? [facility] View your After Visit Summary and more online at [email or web address] If you would like to provide feedback about your hospital experience, please call the Office of Patient and Family Relations at . If you have received this After Visit Summary in error, please immediately return it in person to the department, or notify the [facility] Privacy Office by calling toll free at between the hours of 8AM and 5PM to arrange for our retrieval of the documents at no cost to you. Content Version: 12.2 ?? [id number] [employer]. Care instructions adapted under license by [facility]. If you have questions about a medical condition or this instruction, always ask your healthcare professional. [employer] disclaims any warranty or liability for your [...] View Only Hematology and Dameon Hernandez MD [facility] [place] [address] Oncology Nikky Pak [address] [address] 08/21/2022 TH Visit (TeleHealth) Hematology Reddy Young Oncology [facility] [address] [place], [place] [address] (Wo rk) 08/21/2022 Infusion Hematology and Oncology 08/28/2022 Office Visit Reddy Thompson Oncology [facility] DR [address] [place], [place] [address] (Wo rk) 08/28/2022 Infusion Hematology and Oncology 09/11/2022 Office Visit Hematology and Reddy Hernandez MD [facility] [place] [address] [address] HEMATOLOGY AND [place], [place] [id number] 09/11/2022 Infusion Hematology and Oncology 09/18/2022 Office Visit Hematology and LaRozaNikky A, Oncology [address] HEMATOLOGY AND [place], [place] [phone] (Wo rk) 09/18/2022 Infusion Hematology and Oncology 03/10/2023 Office Visit Cardiology Ofelia Rubalcava MD [facility] [address] [place], [place] [address] (Wo rk) documented as of this encounter Procedures Procedure Name Priority Date/Time Associated Comments Diagnosis SOLID TUMOR NGS PANEL Routine 05/27/2022 8:17 AM EDT NON-COMBINE OPERATOR FINAL REPORT Routine 05/27/2022 8:17 AM R [...] City/State/ZIP Code [place] [address] Non-Bag Machine Set Up Operator Final Report (05/27/2022 8:17 AM EDT) Component Value Ref Test Analysis Performed At [facility] Range Method Time Signature Non-Bag Machine Set Up Operator [id number] ? Location: 4T; EA09; A OFELIA Final Report NAHUN The signing pathologist has (i) examined the relevant preparation(s) for the [facility] specimen(s) and (ii) rendered or confirmed the [...] The assay was performed according to the life manager's instructions using anti-MLH -1 (ES05), anti-MSH-2 ([id number]), anti-MSH-6 (44), and anti-PMS-2 (MRQ-28) antibodies. Electronically signed by: ?Armando Sandoval MD Verified: ??06/30/2022 12:27 ??Pathologist Performed at: ??-[facility] Dept. of Pathology, [place], [place] ? No n-Bag Machine Set Up Operator Final DIAGNOSIS Positive for Malignancy Electronically signed by: ?Baldev HENLEY, José Miguel Bhagat Verified: ??06/06/2022 14:55 ??Cytopathologist Performed at: ??-[facility] Dept. 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 Note: The immunoperoxidase stain results do not specify a pr imary site. Recommend clinical correlation. Dr. Silva reviewed this case and concurs with the diag nosis. --- Immunohistochemistry Studies --- Interpretation: ? [...] Organization Address City/State/[place] [address] Cytopathology Non-Gynecological (05/27/2022 8:17 AM EDT) Specimen Anatomical Collection Method Collection Time Receive d Time (Source) Location / / Volume Laterality AP Specimen 05/27/2022 8:17 AM 8:17 EDT AM EDT Narrative [facility] - 05/27/2022 8:17 AM EDT Specimen requisition ordered. ??Separate Pathology report to follow Rojas Donald MD PATHOLOGY/CYTOLOGY ORDERABLE S Performing Organization Address City/State/[place] [address] UPPER EUS-ENDOSCOPIC ULTRASOUND (05/27/2022 6:58 AM EDT) Component Value Ref Test Analysis Performed At [facility] Range Method Time Signature UPPER [facility] PROVATION ENDOSCOPIC Endoscopy ULTRASOUND _ Procedure Date: 05/27/2022 6:58 AM ? Patient Name: Marcelle Conner ? Date of : 1950 ? Age: 72 ? Order #: [id number] ? Instrument Name: [id number] ? Procedure: ? Upper EUS Indications: ? Suspected mass in liver on MRI Providers: ? Rojas Donald MD, Freddy Bhagat. ? [place], Betty Ravi, Ovidio Villafana. ? Sheryl, Grades 1 6 Tutor Referring MD: ?Harshal Godfrey Medicines: ? Monitored Anesthesia Care [...] PROVATION documented in this encounter Visit Diagnoses Diagnosis Liver mass [...] 0714 ( New Bag - Provider: Jennifer Thomas RN)0820 (Paused - Provider: Trevor Barnes CRNA - Comment: Switch to gravity)0821 (Restarted - Provider: Trevor Barnes CRNA) 100 mL/hr, Intravenous, CONTINUOUS, Star ting on Wed05/27/22 at 0730, Until Wed05/27/22 at 1219, Endoscopy (Day of Procedure) documented in this encounter Care Teams Slitter And Cutter Operator Relationship Specialty Start Date End Date Harshal Godfrey MD PCP - General Family Medicine 02/18/22 [address] [place] [address] documented as of this encounter
--- OUTSIDE RECORDS SUMMARY | 2022-08-21 01:35 | XMS_ITS | Encounter Summary ---
:1950 Author Organization [facility] [place] [address] Care Team Providers Name Role Phone Harshal Godfrey MD Primary Care Provider [phone] Reason for Referral Consultation (Routine) - Closed Specialty Diagnoses / Procedures Referred By Contact Refer red To Contact Hematology and Oncology Diagnoses Cholangiocarcinoma Rojas Donald, Reddy Hernandez MD MD [facility] [address] [place]STRO[place] [address] Fax: Referral ID Status Reason Start Date Expiration Date Visits V isits Requested Authorized [id number] Closed Consult, 06/08/2022 06/08/2023 1 1 Test & Treat Encounter Details Date Type Department Care Team Description 06/08/2022 Telephone Gastroenterology at [facility] Rojas Donald, [facility] [place] [address] [facility] [phone] GASTROENTEROLOGY [place] [address] (Wo rk) Social History Tobacco Use Types [...] Telephone Encounter - Rojas Donald MD - 06/08/2022 2:50 PM EDT I attempted to call March today with her cytology that finally just returned. She was not at home. I have made a referral to liver tumor clinic and will make a referral to medical oncology. documented in this encounter Plan of Treatment Upcoming Encounters Date Type Specialty Care Team Description 08/21/2022 Scheduled View Only Hematology and Dameon Hernandez MD [facility] [place] [address] Oncology Nikky Pak, [address] [place] [address] 08/21/2022 TH Visit (TeleHealth) Hematology and Reddy Hernandez , Oncology [facility] ONCOLOGY [place], [place] [address] (Wo rk) 08/21/2022 Infusion Hematology and Oncology 08/28/2022 Office Visit Hematology and Reddy Hernandez Oncology [facility] [address] [place], [place] [address] (Wo rk) 08/28/2022 Infusion Hematology and Oncology 09/11/2022 Office Visit Hematology Reddy Young MD [facility] [place] [address] [address] [place], [place] [phone] 09/11/2022 Infusion Hematology and Oncology 09/18/2022 Office Visit Hematology and Nikky Pak, Oncology [address] [place], [place] [phone] (Wo rk) 09/18/2022 Infusion Hematology and Oncology 03/10/2023 Office Visit Cardiology Ofelia Rubalcava MD [facility] [address] [place], [place] [address] (Wo rk) Scheduled Referrals Name Type Priority Associated Diagnoses Order S chedule Referral to Outpatient Referral Routine Cholangiocarcinoma Or dered: Hematology and 06/08/2022 Oncology documented as of this encounter Visit Diagnoses Diagnosis Cholangiocarcinoma Malignant neoplasm of intrahepatic bile ducts Colon cancer metastasized to liver Malignant neoplasm of colon, unspecified site documented in this encounter Care Teams Certified Coding Specialist Relationship Specialty Start Date End Date Harshal Godfrey MD PCP - General Family Medicine 02/18/22 [facility] [place] [address] documented as of this encounter
--- OUTSIDE RECORDS SUMMARY | 2022-08-21 01:35 | XMS_ITS | Encounter Summary ---
:1950 Author Organization [facility] [place] [address] Care Team Providers Name Role Phone Harshal Godfrey MD Primary Care Provider [phone] Encounter Details Date Type Department Care Team Description 05/15/2022 Telephone [place] [facility] Ladarius Mitchell MD [facility] [place] [address] PULMONARY MEDICINE [phone] [place] [phone] (Wo rk) Social History Tobacco Use Types [...] place to sleep or slept in a prison (including now)? Sex Assigned at Date Recorded Not on file documented as of this encounter Miscellaneous Notes Telephone Encounter - Ladarius Mitchell MD - 05/15/2022 12:48 PM EDT Images from the original note were not included. Interventional Pulmonology Telephone Encounter: I called Ms. Marcelle Conenr on 05/15/2022 at 12:48 PM. No answer on mobile # and voice mail left to call back. No answer on her home # and voice mail left to call back. Looking to discuss results of today's MR abdomen and plan to convert her scheduled EBUS to EUS after my discussion with interventionalGI. 05/15/22 MR abdomen: Ladarius Mitchell MD, 05/15/2022, 12:48 PM Interventional Pulmonology Section of Pulmonary & Critical Care Pager: [phone] documented in this encounter Plan of Treatment Upcoming Encounters Date Type Specialty Care Team Description 08/21/2022 Scheduled View Only Hematology and Dameon Hernandez MD [facility] [place] [address] Oncology Nikky Pak [address] [address] 08/21/2022 TH Visit (TeleHealth) Hematology Reddy Young Oncology [facility] ONCOLOGY [place], [place] [address] (Wo rk) 08/21/2022 Infusion Hematology and Oncology 08/28/2022 Office Visit Hematology and Reddy Hernandez Oncology [facility] [address] [place], [place] [address] (Wo rk) 08/28/2022 Infusion Hematology and Oncology 09/11/2022 Office Visit Hematology and Reddy Hernandez MD [facility] [place] [address] [address] HEMATOLOGY AND [place], [place] [address] 09/11/2022 Infusion Hematology and Oncology 09/18/2022 Office Visit Hematology and Nikky Pak, Oncology [address] HEMATOLOGY AND [place], [place] [address] (Wo rk) 09/18/2022 Infusion Hematology and Oncology 03/10/2023 Office Visit Cardiology Ofelia Rubalcava MD [facility] Dr [place], [place] [address] (Wo rk) documented as of this encounter Visit Diagnoses Not on filedocumented in this encounter Care Teams Manager Contract Relationship Specialty Start Date End Date Harshal Godfrey MD PCP - General Family Medicine 02/18/[address] [facility] [place] [address] documented as of this encounter
--- OUTSIDE RECORDS SUMMARY | 2022-08-21 01:35 | XMS_ITS | Encounter Summary ---
:1950 Author Organization [facility] [place] [address] Care Team Providers Name Role Phone Harshal Godfrey MD Primary Care Provider [phone] Reason for Referral Diagnostic Test (Routine) - Closed Specialty Diagnoses / Procedures Referred By Contact Refer red To Contact Radiology Diagnoses Liver disease Ladarius Mitchell MD Procedures MRI Abdomen wwo Contrast (Generic) [facility] PULMONARY MEDICINE [place] [phone] Referral ID Status Reason Start Date Expiration Date Visits V isits Requested Authorized [id number] Closed Specialty 04/23/2022 10/24/2023 1 1 Service Requested Reason for Visit Diagnostic Test (Routine) - Closed Specialty Diagnoses / Procedures Referred By Contact Refer red To Contact Radiology Diagnoses Liver disease Ladarius Mitchell MD Procedures MRI Abdomen wwo Contrast (Generic) [facility] PULMONARY MEDICINE [place] [phone] Referral ID Status Reason Start Date Expiration Date Visits V isits Requested Authorized [id number] Closed Specialty 04/23/2022 10/24/2023 1 1 Service Requested Encounter Details Date Type Department Care Team Description 05/15/2022 Hospital Encounter MRI at [facility] Ladarius Mitchell, Liver disease [facility] [place] [address] PULMONARY MEDICI [place], [place] [address] (Wo rk) Social History Tobacco Use Types [...] procedures. nystatin (MYCOSTATIN) Apply 1 Application 0 02/27 /2022 100,000 unit/gram Powder topically daily as needed. [...] Hernandez MD [facility] [place] [address] Oncology Nikky Pak, JENN [address] [place] [address] [place] [address] 08/21/2022 TH Visit (TeleHealth) Hematology Reddy Young Oncology [facility] [place]COLOGY [place], [place] [address] (Wo rk) 08/21/2022 Infusion Hematology and Oncology 08/28/2022 Office Visit Hematology and Reddy Hernandez Oncology [facility] [address], [place] [address] (Wo rk) 08/28/2022 Infusion Hematology and Oncology 09/11/2022 Office Visit Reddy Thompson MD [facility] [place] [address] [address] HEMATOLOGY AND [place], [place] [phone] 09/11/2022 Infusion Hematology and Oncology 09/18/2022 Office Visit Hematology and Nikky Pak, Oncology [address] HEMATOLOGY AND [place], [place] [address] (Wo rk) 09/18/2022 Infusion Hematology and Oncology 03/10/2023 Office Visit Cardiology Ofelia Rubalcava MD [facility] [address] [place], [place] [address] (Wo rk) documented as of this encounter Procedures Procedure Name Priority Date/Time Associated Diagnosis Comme nts MRI ABDOMEN WWO Routine 05/15/2022 8:46 AM Liver disease Resul ts for this CONTRAST EDT procedure are i n the results section. documented in this encounter Results MRI Abdomen wwo Contrast (Generic) (05/15/2022 8:46 AM EDT) Anatomical Region Laterality Modality Abdomen Magnetic Resonance Specimen (Source) Anatomical Location Collection Method / Collectio n Time Received Time / Laterality Volume Impressions 05/15/2022 11:16 AM EDT 1. ??Dominant left hepatic lobe mass concerning for malignancy such as cholangiocarcinoma. Additional hepatic m etastases. Abdominal lymphadenopathy. Biopsy is recommended for tissue confirm ation. 2. ??Hepatomegaly without imaging signs of cirrhosis or portal hypertension. I have personally reviewed the image(s) and the resident's interpretation and agree with the findings, Jace bundy MD at 05/15/2022 11:16 AM Thank you for letting us participate in the care of this patient. ??If you are a health care provider and have any questi ons regarding this report, please contact the number below. ??For patients who have questions please contact the health care team coordinator scheduler that requested your imaging first. ? Narrative 05/15/2022 11:16 AM EDT EXAMINATION: MRI ABDOMEN WWO CONTRAST (GENERIC) CLINICAL HISTORY: Liver disease, chronic , tumor screening; Possible cirrhosis on recent imaging with areas of hypoattenua tion and irregularity on PET/CT - being worked up for an underlying malignancy v ersus inflammatory disease as well with mediatinal/hilar adenopathy/avidity and pulmonary nodules TECHNIQUE: MRI of the abdomen was perfor med with images obtained prior to and following the intravenous administration of 19ml of Dotarem using the dynamic liver protocol. COMPARISONS: PET/CT 04/21/2022. CT chest 03/23/2022. FINDINGS: Prior hepatic interventions: None. Liver Morphology: The left lobe is relat ively small and has a nodular contour and is mostly replaced by a large mass. Normal contour of the right lobe. The liver is mildly enlarged measuring 19.6 cm in craniocaudal dimension. No steatosis. Focal hepatic lesions: Yes Lesion 1: Left lobe segment 2/3/4 (serie s 12 image 30). Mild to moderately T2 hyperintense with capsular retraction an d central calcification. Size: 105mm Enhancement: Peripherally hypervascular on the arterial phase imaging with progressive central enhancement. Change from prior: Subjectively increase d in size by 1 to 2 cm from the 03/23/2022 CT given the differences in me asuring between MRI and noncontrast CT. (Please note that in this patient withou t background features of cirrhosis LI-RADS criteria cannot be assigned.) There are at least 6 additional rim enha ncing lesions scattered throughout the right lobe with similar imaging features to the dominant left lobe mass and ranging in size from 1 cm to 3.7 cm. Portal Vein: Patent main and right jeannine l vein. The left portal vein is nonopacified. Varices: None. Ascites: None. Spleen: Normal size, no lesions. Bile ducts: Nondilated common bile. The left bile ducts are truncated. Gallbladder: Surgically absent. Pancreas: Normal. Adrenals: Normal. Kidneys: Nonenhancing renal cysts. No hy dronephrosis. Aorta: No abdominal aortic aneurysm. Lymph nodes: Enlarged gastrohepatic liga ment nodes measure up to 2.4 cm. Bowel: Nondilated, no inflammatory naranjo es. Marrow Signal: Normal. Procedure Note Jace Tejeda MD - 05/15/2022Format ting of this note might be different from the original. EXAMINATION: MRI ABDOMEN WWO CONTRAST (G ENERIC) CLINICAL HISTORY: Liver disease, chronic , tumor screening; Possible cirrhosis on recent imaging with areas of hypoattenua tion and irregularity on PET/CT - being worked up for an underlying malignancy v ersus inflammatory disease as well with mediatinal/hilar adenopathy/avidity and pulmonary nodules TECHNIQUE: MRI of the abdomen was perfor med with images obtained prior to and following the intravenous administration of 19ml of Dotarem using the dynamic liver protocol. COMPARISONS: PET/CT 04/21/2022. CT chest 03/23/2022. FINDINGS: Prior hepatic interventions: None. Liver Morphology: The left lobe is relat ively small and has a nodular contour and is mostly replaced by a large mass. Normal contour of the right lobe. The liver is mildly enlarged measuring 19.6 cm in craniocaudal dimension. No steatosis. Focal hepatic lesions: Yes Lesion 1: Left lobe segment 2/3/4 (serie s 12 image 30). Mild to moderately T2 hyperintense with capsular retraction an d central calcification. Size: 105mm Enhancement: Peripherally hypervascular on the arterial phase imaging with progressive central enhancement. Change from prior: Subjectively increase d in size by 1 to 2 cm from the 03/23/2022 CT given the differences in me asuring between MRI and noncontrast CT. (Please note that in this patient withou t background features of cirrhosis LI-RADS criteria cannot be assigned.) There are at least 6 additional rim enha ncing lesions scattered throughout the right lobe with similar imaging features to the dominant left lobe mass and ranging in size from 1 cm to 3.7 cm. Portal Vein: Patent main and right jeannine l vein. The left portal vein is nonopacified. Varices: None. Ascites: None. Spleen: Normal size, no lesions. Bile ducts: Nondilated common bile. The left bile ducts are truncated. Gallbladder: Surgically absent. Pancreas: Normal. Adrenals: Normal. Kidneys: Nonenhancing renal cysts. No hy dronephrosis. Aorta: No abdominal aortic aneurysm. Lymph nodes: Enlarged gastrohepatic liga ment nodes measure up to 2.4 cm. Bowel: Nondilated, no inflammatory naranjo es. Marrow Signal: Normal. IMPRESSION 1. Dominant left hepatic lobe mass vinod rning for malignancy such as cholangiocarcinoma. Additional hepatic m etastases. Abdominal lymphadenopathy. Biopsy is recommended for tissue confirm ation. 2. Hepatomegaly without imaging signs of cirrhosis or portal hypertension. I have personally reviewed the image(s) and the resident's interpretation and agree with the findings, Jace bundy MD at 05/15/2022 11:16 AM Thank you for letting us participate in the care of this patient. If you are a health care provider and have any questi ons regarding this report, please contact the number below. For patients w ho have questions please contact the health care team coordinator scheduler that requested your imaging first. Ladarius Mitchell MD [facility] MRI ORDERABLES documented in this encounter Visit Diagnoses Diagnosis Liver disease Unspecified disorder of liver Colon cancer metastasized to liver Malignant neoplasm of colon, unspecified site documented in this encounter Administered Medications Inactive Administered Medications - up to 3 most recent administrations Medication Order MAR Action Action Date Dose Rate Site gadoterate meglumine (Dotarem) Given 05/15/2022 8:31 AM EDT 19 m Ls (0.5 mMol/mL) injection solution 0-100 mL 0-100 mL, Intravenous, ONCE PRN, 1 dose, Starting on Wed05/15/22 at 0812, Until Wed05/15/22 at 0831, Per Protocol, Radiology Contrast, Routine documented in this encounter Care Teams Odd Piece Checker Relationship Specialty Start Date End Date Harshal Godfrey MD PCP - General Family Medicine 02/18/22 [address] [place] [address] documented as of this encounter
--- OUTSIDE RECORDS SUMMARY | 2022-08-21 01:35 | XMS_ITS | Encounter Summary ---
:1950 Author Organization [facility] [place] [address] Care Team Providers Name Role Phone Harshal Godfrey MD Primary Care Provider [phone] Encounter Details Date Type Department Care Team Description 06/22/2022 Multidisciplinary Care Hematology and Reddy Hernandez Committee [place]cology [place] [facility] [place] Josse [facility] [address] [place] [address] [place], [place] [phone] [facility] Social History Tobacco Use Types Packs/Day Years [...] encounter Progress Notes Reddy Hernandez MD - 06/22/2022 12:49 PM EDT GI - Tumor Board Note Date Presented:06/16/22 Presenting Physician: David Diagnosis/Tumor Site:unknown primary Is this Metastatic Disease: Yes Synopsis of History/HPI: 72 yo, seen for evaluation and management [...] cell carcinoma may have clear cell histology. The MRI showed renal cysts and no enhancing masses. She is s/p TSH-BSO many years ago. 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 If the gastrohepatic ligament LN or the adenopathy/lung nodules in the chest is positive for malignancy, then this would be stage IV disease, unresectable. Even if those were not areas of cancer and this were technically resectable, she would be considered at very high risk of disease recurrence. Recommendations: Discuss above with patient, consider referral to Dr Mitchell for consideration of EBUS/bx. DISCLAIMER: The patient was discussed and the tumor board made recommendations but it is ultimately up to the treatment provider(s) and the patient to determine the patient???s care. documented in this encounter Plan of Treatment Upcoming Encounters Date Type Specialty Care Team Description 08/21/2022 Scheduled View Only Hematology and Dameon Hernandez MD [facility] [place] [address] Oncology [address] [place] [address] 08/21/2022 TH Visit (TeleHealth) Hematology and Reddy Hernandez Oncology MD [facility] [address] [place], [place] [address] (Wo rk) 08/21/2022 Infusion Hematology and Oncology 08/28/2022 Office Visit Reddy Thompson Oncology MD [facility] [address] [place], [place] [address] (Wo rk) 08/28/2022 Infusion Hematology and Oncology 09/11/2022 Office Visit Reddy Thompson MD [facility] [place] [address] Oncology [address] HEMATOLOGY AND [place], [place] [address] 09/11/2022 Infusion Hematology and Oncology 09/18/2022 Office Visit Hematology and LaRNikky stallworth, Oncology [address] HEMATOLOGY AND [place], [place] [phone] (Wo rk) 09/18/2022 Infusion Hematology and Oncology 03/10/2023 Office Visit Cardiology Ofelia Rubalcava MD [facility] [address] [place] [address] (Wo rk) documented as of this encounter Visit Diagnoses Not on filedocumented in this encounter Care Teams New Vehicle Sales Consultant Relationship Specialty Start Date End Date Harshal Godfrey MD PCP - General Family Medicine 02/18/[address] [place] [id number] documented as of this encounter
--- OUTSIDE RECORDS SUMMARY | 2022-08-21 01:35 | XMS_ITS | Encounter Summary ---
:1950 Author Organization [place] [address] Care Team Providers Name Role Phone Harshal Godfrey MD Primary Care Provider [phone] Reason for Referral Consultation (Emergency) - Closed Specialty Diagnoses / Procedures Referred By Contact Refer red To Contact Gastroenterology Diagnoses Liver mass Ladarius Mitchell MD [facility] [address] [facility] [place] [address] [place] [address] Referral ID Status Reason Start Date Expiration Date Visits V isits Requested Authorized [id number] Closed Consult, 05/18/2022 05/18/2023 1 1 Test & Treat Encounter Details Date Type Department Care Team Description 05/18/2022 Telephone Medicine Critical Ca re Ladarius Mitchell MD [facility] [place] [address] PULMONARY MEDICINE [phone] [place], [place] [address] (Wo rk) Social History Tobacco [...] Telephone Encounter - Ladarius Mitchell MD - 05/18/2022 11:23 AM EDT Images from the original note were not included. Interventional Pulmonology Telephone Encounter: I called Ms. Marcelle Conner on 05/18/2022 at 11:23 AM. We discussed the results from her recent imaging pertinent for the liver mass as noted below. The plan is for cancellation of her EBUS and converting this procedure to EUS as already discussed with my Gi colleagues last week. She was provided ampletime to ask questions which were answered to her liking. 05/15/22 MR abdomen: ? Ladarius Mitchell MD, 05/18/2022, 11:23 AM Interventional Pulmonology Section of Pulmonary & Critical Care Pager: [phone] documented in this encounter Plan of Treatment Upcoming Encounters Date Type Specialty Care Team Description 08/21/2022 Scheduled View Only Hematology and Dameon Hernandez MD [facility] [place] [address] [address] HEMATOLOGY AND [place], [place] [phone] 08/21/2022 TH Visit (TeleHealth) Hematology and Reddy Hernandez Oncology [facility] [address] [place], [place] [address] (Wo rk) 08/21/2022 Infusion Hematology and Oncology 08/28/2022 Office Visit Hematology and Reddy Hernandez Oncology [facility] [address] [place], [place] [address] (Wo rk) 08/28/2022 Infusion Hematology and Oncology 09/11/2022 Office Visit Hematology and Reddy Hernandez MD [facility] [place] [address] [address] HEMATOLOGY AND [place], [place] [phone] 09/11/2022 Infusion Hematology and Oncology 09/18/2022 Office Visit Hematology and Nikky Pak, Oncology [address] HEMATOLOGY AND [place], [place] [phone] (Wo rk) 09/18/2022 Infusion Hematology and Oncology 03/10/2023 Office Visit Cardiology Ofelia Rubalcava MD [facility] [address] [place] [address] (Wo rk) Scheduled Referrals Name Type Priority Associated Diagnoses Order S chedule REFERRAL TO Outpatient Referral STAT Liver mass Ordered: ENDOSCOPY PROCEDURE 05/18/20 22 documented as of this encounter Visit Diagnoses Diagnosis Liver mass Unspecified disorder of liver Colon cancer metastasized to liver Malignant neoplasm of colon, unspecified site documented in this encounter Care Teams Die Cast Operator Relationship Specialty Start Date End Date Harshal Godfrey MD PCP - General Family Medicine 02/18/[address] [facility] [place] [address] documented as of this encounter
--- OUTSIDE RECORDS SUMMARY | 2022-08-21 01:36 | XMS_ITS | Encounter Summary ---
:1950 Author Organization [facility] [place] [address] Care Team Providers Name Role Phone Harshal Godfrey MD Primary Care Provider [phone] Encounter Details Date Type Department Care Team Description 04/23/2022 Telephone [place] [facility]arshad [facility] [place] [address] Social History Tobacco Use Types Packs/Day [...] MD [facility] [place] [address] On[address] HEMATOLOGY AND [place], [place] [phone] 08/21/2022 TH Visit (TeleHealth) Hematology and Reddy Hernandez Oncology [facility] [address] [place], [place] [address] (Wo rk) 08/21/2022 Infusion Hematology and Oncology 08/28/2022 Office Visit Hematology and Reddy Hernandez Oncology [facility] [address] [place], [place] [address] (Wo rk) 08/28/2022 Infusion Hematology and Oncology 09/11/2022 Office Visit Sharon and Reddy Hernandez MD [facility] [place] [address] Oncology [address] HEMATOLOGY AND [place], [place] [phone] 09/11/2022 Infusion Hematology and Oncology 09/18/2022 Office Visit Hematology and Nikky Pak, Oncology [address] [place] AND [place], [place] [phone] (Wo rk) 09/18/2022 Infusion Hematology and Oncology 03/10/2023 Office Visit Cardiology Ofelia Rubalcava MD [facility] [address] [place], [place] [address] (Wo rk) documented as of this encounter Visit Diagnoses Not on filedocumented in this encounter Care Teams Sourcing Consultant Relationship Specialty Start Date End Date Harshal Godfrey MD PCP - General Family Medicine 02/18/[address] [place] [address] documented as of this encounter
--- OUTSIDE RECORDS SUMMARY | 2022-08-21 01:36 | XMS_ITS | Encounter Summary ---
:1950 Author Organization [facility] [place] [address] Care Team Providers Name Role Phone Harshal Godfrey MD Primary Care Provider [phone] Reason for Referral Diagnostic Test (Routine) - Closed Specialty Diagnoses / Procedures Referred By Contact Refer red To Contact Radiology Diagnoses Mediastinal lymphadenopathy Nidhi Olsen, JENN [facility] Rad Nuclear Med Procedures NM PET CT Skull Base to Mid-thigh [facility] [place] [address] [place] [address] Referral ID Status Reason Start Date Expiration Date Visits V isits Requested Authorized [id number] Closed Specialty 04/08/2022 10/09/2023 2 2 Service Requested Encounter Details Date Type Department Care Team Description 04/08/2022 Orders Only Pulmonology at [facility] Nidhi Olsen Mediastinal [facility] FOCUS PULLER lymphadenopathy, [facility] [address] [address] right and left liver [phone] Pulmonary Medici ne lobes, numerous very [place], [place] [address] small pulmonary [phone] nodules (Work) Social History Tobacco Use Types Packs/Day Years [...] place to sleep or slept in a alf (including now)? Sex Assigned at Date Recorded Not on file documented as of this encounter Plan of Treatment Upcoming Encounters Date Type Specialty Care Team Description 08/21/2022 Scheduled View Only Hematology and Dameon Hernandez MD [facility] [place] [address] Oncology [address] [place] [address] 08/21/2022 TH Visit (TeleHealth) Hematology Reddy Young Oncology [facility] [address] [place], [place] [address] (Wo rk) 08/21/2022 Infusion Hematology and Oncology 08/28/2022 Office Visit Hematology and Reddy Hernandez, Oncology [facility] [address] [place] [address] (Wo rk) 08/28/2022 Infusion Hematology and Oncology 09/11/2022 Office Visit Hematology and Reddy Hernandez MD [facility] [place] [address] Oncology [address] HEMATOLOGY AND [facility], [place] [phone] 09/11/2022 Infusion Hematology and Oncology 09/18/2022 Office Visit Hematology and Nikky Pak, Oncology [address] HEMATOLOGY AND [facility], [place] [phone] (Wo rk) 09/18/2022 Infusion Hematology and Oncology 03/10/2023 Office Visit Cardiology Ofelia Rubalcava MD [facility] Dr [place] [address] (Wo rk) documented as of this encounter Results NM PET CT Skull Base to Mid-thigh (04/21/2022 10:36 AM EDT) Anatomical Region Laterality Modality Positron Emission To mography (PET) Specimen (Source) Anatomical Location Collection Method / Collectio n Time Received Time / Laterality Volume Impressions 04/21/2022 4:58 PM EDT 1. ??There are areas of decreased attenuation in the liver. Mildly increased FDG activity is present in the left lower li kady. A nodular contour to the left lobe of liver suggests cirrhosis. Liver malig ramesh is a consideration. This may be further characterized with MRI. 2. ??Hypermetabolic lymphadenopathy is p resent in the mediastinum and gastrohepatic ligament and is concerning for metastases. 3. ??Hypermetabolic soft tissue containi ng several foci of air is located at the right sternoclavicular joint. This may b e due to recent surgery. Infection may also have this appearance. Please correl ate clinically. Thank you for letting us participate in the care of this patient. ??If you are a health care provider and have any questi ons regarding this report, please contact the number below. ??For patients who have questions please contact the health care administrative tech that requested your imaging first. ? Narrative 04/21/2022 4:58 PM EDT EXAMINATION: NM PET CT STANDARD SKULL BASE TO MID-THIGH CLINICAL HISTORY: Lymphadenopathy, chest or axilla TECHNIQUE: Following IV injection of 18- dzfzoc-3-niusjfoedahh (FDG) a standard uptake of approximately 60 minutes, a no ncontrast CT scan followed by a PET scan were acquired from the base of the skull to mid thighs. The noncontrast CT was used for anatomic localization and photo n attenuation correction of the PET scan. Blood glucose level: 117 (mg/dL) FDG dose: 15.8 mCi COMPARISON: None FINDINGS: HEAD/NECK: There is a focus of increased activity i n the skin of the base of the right side of the neck, likely due to a small area of inflammation. CHEST: Hypermetabolic enlarged right paratrache al lymph nodes are present. A hypermetabolic left paracardiac lymph no de is seen (image 98). Multiple subcentimeter pulmonary nodules are present (for example, right upper lobe image 56, 62, 79; right lower lobe image 81, 89; left upper lobe image 76). These nodules are not hypermetabolic but are likely too small to be characterized by FDG PET. There is mildly hypermetabolic stranding in the left lower lobe (image 82) that is likely due to inflammation. There has been a prior CABG. Coronary ar hailey calcification is present. There is a prosthetic aortic valve in place. ABDOMEN/PELVIS: Diffusely increased activity in the ariel l is consistent with metformin usage. There is mildly increased FDG activity i n the left lobe of the liver which is associated with decreased attenuation. S everal areas of calcification are present in the left lobe of the liver. F oci of ill-defined decreased attenuation are also present in the right lobe of th e liver. The left lobe of the liver appears to have a nodular contour. Hypermetabolic lymph nodes are located i n the gastrohepatic ligament. There is a focus of increased activity m edial aspect of the right gluteus tess muscle likely due to muscle inju ry. There is a suture line in the small ariel l. SKELETON/EXTREMITIES: Increased activity is associated with th e sternotomy site and consistent with recent surgery. Activity is particularly intense at the right sterno-clavicular joint with areas soft tissue prominence in several foci of air. Procedure Note Lukas Champion MD - 04/21/2022 EXAMINATION: NM PET CT STANDARD SKULL BA SE TO MID-THIGH CLINICAL HISTORY: Lymphadenopathy, chest or axilla TECHNIQUE: Following IV injection of 18- viiycx-1-lklnlcvmcsqk (FDG) a standard uptake of approximately 60 minutes, a no ncontrast CT scan followed by a PET scan were acquired from the base of the skull to mid thighs. The noncontrast CT was used for anatomic localization and photo n attenuation correction of the PET scan. Blood glucose level: 117 (mg/dL) FDG dose: 15.8 mCi COMPARISON: None FINDINGS: HEAD/NECK: There is a focus of increased activity i n the skin of the base of the right side of the neck, likely due to a small area of inflammation. CHEST: Hypermetabolic enlarged right paratrache al lymph nodes are present. A hypermetabolic left paracardiac lymph no de is seen (image 98). Multiple subcentimeter pulmonary nodules are present (for example, right upper lobe image 56, 62, 79; right lower lobe image 81, 89; left upper lobe image 76). These nodules are not hypermetabolic but are likely too small to be characterized by FDG PET. There is mildly hypermetabolic stranding in the left lower lobe (image 82) that is likely due to inflammation. There has been a prior CABG. Coronary ar hailey calcification is present. There is a prosthetic aortic valve in place. ABDOMEN/PELVIS: Diffusely increased activity in the ariel l is consistent with metformin usage. There is mildly increased FDG activity i n the left lobe of the liver which is associated with decreased attenuation. S everal areas of calcification are present in the left lobe of the liver. F oci of ill-defined decreased attenuation are also present in the right lobe of th e liver. The left lobe of the liver appears to have a nodular contour. Hypermetabolic lymph nodes are located i n the gastrohepatic ligament. There is a focus of increased activity m edial aspect of the right gluteus tess muscle likely due to muscle inju ry. There is a suture line in the small ariel l. SKELETON/EXTREMITIES: Increased activity is associated with th e sternotomy site and consistent with recent surgery. Activity is particularly intense at the right sterno-clavicular joint with areas soft tissue prominence in several foci of air. IMPRESSION 1. There are areas of decreased attenuat ion in the liver. Mildly increased FDG activity is present in the left lower li kady. A nodular contour to the left lobe of liver suggests cirrhosis. Liver malig ramesh is a consideration. This may be further characterized with MRI. 2. Hypermetabolic lymphadenopathy is pre sent in the mediastinum and gastrohepatic ligament and is concerning for metastases. 3. Hypermetabolic soft tissue containing several foci of air is located at the right sternoclavicular joint. This may b e due to recent surgery. Infection may also have this appearance. Please correl ate clinically. Thank you for letting us participate in the care of this patient. If you are a health care provider and have any questi ons regarding this report, please contact the number below. For patients w ho have questions please contact the health care administrative tech that requested your imaging first. Nidhi Olsen APRN IMG PET ORDERABLES documented in this encounter Visit Diagnoses Diagnosis Mediastinal lymphadenopathy, abnormal fi ndings right and left liver lobes, numerous very small pulmonary nodules Enlargement of lymph nodes Mediastinal lymphadenopathy, abnormal fi ndings right and left liver lobes, numerous very small pulmonary nodules Enlargement of lymph nodes Colon cancer metastasized to liver Malignant neoplasm of colon, unspecified site documented in this encounter Care Teams Concrete Block Layer Relationship Specialty Start Date End Date Harshal Godfrey MD PCP - General Family Medicine 02/18/22 [address] [place] [address] documented as of this encounter
--- OUTSIDE RECORDS SUMMARY | 2022-08-21 01:36 | XMS_ITS | Encounter Summary ---
:1950 Author Organization [facility] [place] [address] Care Team Providers Name Role Phone Harshal Godfrey MD Primary Care Provider [phone] Reason for Referral Diagnostic Test (Routine) - Closed Specialty Diagnoses / Procedures Referred By Contact Refer red To Contact Radiology Diagnoses Liver disease Ladarius Mitchell MD Procedures MRI Abdomen wwo Contrast (Generic) [facility] [place] [address] Referral ID Status Reason Start Date Expiration Date Visits V isits Requested Authorized [id number] Closed Specialty 04/23/2022 10/24/2023 1 1 Service Requested Encounter Details Date Type Department Care Team Description 04/23/2022 Telephone [place]ology [place] [facility] [place] Mitchell MD [facility] [place] [address] PULMONARY MEDICINE [phone] [place], [place] [address] (Wo rk) Social History Tobacco [...] Telephone Encounter - Ladarius Mitchell MD - 04/23/2022 8:42 AM EDT Interventional Pulmonology Telephone Encounter: I called Ms. Marcelle Conner on 04/23/2022 at 8:42 AM. We discussed the results from her recent PET/CTwith uncertainty as to what's actually going on with her livery (cirrhosis and/or underlying malignancy or inflammatory diseae) and PET avidity through the mediastinum. We discussed her options moving forward including MR imaging, surveilllance imaging and biopsy - she was clear she'd like a full work-up now and is feeling up to it. I will order an MR liver at [facility] and arrange for bronchoscopy with EBUS-TBNA with our service here. She was in agreement with this plan. Ms. Marcelle Conner was provided ample time to ask questions which were answered to her liking. Ladarius Mitchell MD, 04/23/2022, 8:42 AM Interventional Pulmonology Section of Pulmonary & Critical Care Pager: [phone] documented in this encounter Plan of Treatment Upcoming Encounters Date Type Specialty Care Team Description 08/21/2022 Scheduled View Only Dameon Thompson MD [facility] [place] [address] On[address] HEMATOLOGY AND [place], [place] [address] 08/21/2022 TH Visit (TeleHealth) Hematology and Reddy Hernandez Oncology [facility] [address] [place], [place] [address] (Wo rk) 08/21/2022 Infusion Hematology and Oncology 08/28/2022 Office Visit Hematology and Reddy Hernandez Oncology [facility] [address], [place] [address] (Wo rk) 08/28/2022 Infusion Hematology and Oncology 09/11/2022 Office Visit Hematology and Reddy Hernandez MD [facility] [place] [address] [address] HEMATOLOGY AND [place], [place] [phone] 09/11/2022 Infusion Hematology and Oncology 09/18/2022 Office Visit Hematology and Nikky Pak Oncology [address] HEMATOLOGY AND [place], [place] [address] (Wo rk) 09/18/2022 Infusion Hematology and Oncology 03/10/2023 Office Visit Cardiology Ofelia Rubalcava MD [facility] [address] [place], [place] [address] (Wo rk) documented as of this encounter Results MRI Abdomen wwo Contrast [...] who have questions please contact the health medicare sales representative that requested your imaging first. ? Electronically signed by: Jace cohen MD, [facility] ([phone]), at 05/15/2022 11:16 AM Narrative 05/15/2022 11:16 AM EDT EXAMINATION: MRI [...] ho have questions please contact the health medicare sales representative that requested your imaging first. Ladarius Mitchell MD IMG MRI ORDERABLES documented in this encounter Visit Diagnoses Diagnosis Liver disease Unspecified disorder of liver Liver disease Unspecified disorder of liver Colon cancer metastasized to liver Malignant neoplasm of colon, unspecified site documented in this encounter Care Teams Launch Manager Relationship Specialty Start Date End Date Harshal Godfrey MD PCP - General Family Medicine 02/18/22 [address] [place] [address] documented as of this encounter
--- OUTSIDE RECORDS SUMMARY | 2022-08-21 01:36 | XMS_ITS | Encounter Summary ---
:1950 Author Organization [place] [place] [address] Care Team Providers Name Role Phone Harshal Godfrey MD Primary Care Provider [phone] Encounter Details Date Type Department Care Team Description 04/21/2022 Telephone Pulmonology at [facility] Ladarius Mitchell MD [facility] [place] [address] PULMONARY MEDICINE [phone] [place] [id number] (Wo rk) Social History Tobacco Use Types [...] Telephone Encounter - Ladarius Mitchell MD - 04/21/2022 6:20 PM EDT Interventional Pulmonology Telephone Encounter: I called Ms. Marcelle Conner on 04/21/2022 at 6:20 PM. No answer on mobile/went straight to voice mailand one was left. called her home # and a voice mail was also left. Looking to discuss the results of her PET/CT with mediastinal lymph node avidity and areas of avidity/hypoattenuation throughout the liver of unclear significance. Sarcoidosis could still be a consideration if any of the hepatic findings are consistent with granulomatous disease, however malignancy remains a possibility although not entirely clear what the primary site would be unless a dominant liver mass is identified. When she calls back I will discuss moving forward with a liver protocol MRI to further delineate and also offer b ronchoscopy with EBUS-TBNA of the mediastinal and hilar lymph nodes. Depending on the findings of her liver MR, we can also consider simultaneously EUS if applicable. 04/21/22 PET/CT: IMPRESSION 1. There are areas of decreased [...] also have this appearance. Please correlate clinically. Ladarius Mitchell MD, 04/21/2022, 6:20 PM Interventional Pulmonology Section of Pulmonary & Critical Care Pager: [phone] documented in this encounter Plan of Treatment Upcoming Encounters Date Type Specialty Care Team Description 08/21/2022 Scheduled View Only Hematology and Dameon Hernandez MD [facility] [place] [address] [address] HEMATOLOGY AND [place], [place] [phone] 08/21/2022 TH Visit (TeleHealth) Hematology and Reddy Hernandez Oncology [facility] [address] [place], [place] [address] (Wo rk) 08/21/2022 Infusion Hematology and Oncology 08/28/2022 Office Visit Hematology and Reddy Hernandez Oncology [facility] [address]ANGELO [place], [place] [address] (Wo rk) 08/28/2022 Infusion Hematology and Oncology 09/11/2022 Office Visit Hematology and Reddy Hernandez MD [facility] [place] [address] [address] HEMATOLOGY AND [place], [place] [address] 09/11/2022 Infusion Hematology and Oncology 09/18/2022 Office Visit Hematology and Nikky Pak, Oncology [address] HEMATOLOGY AND [facility], [place] [address] (Wo rk) 09/18/2022 Infusion Hematology and Oncology 03/10/2023 Office Visit Cardiology Ofelia Rubalcava MD [facility] [address] [place], [place] [address] (Wo rk) documented as of this encounter Visit Diagnoses Not on filedocumented in this encounter Care Teams Manager Emergency Department Relationship Specialty Start Date End Date Harshal Godfrey MD PCP - General Family Medicine 02/18/22 [facility] [place] [address] documented as of this encounter
--- OUTSIDE RECORDS SUMMARY | 2022-08-21 01:36 | XMS_ITS | Encounter Summary ---
:1950 Author Organization [facility] [place] [address] Care Team Providers Name Role Phone Harshal Godfrey MD Primary Care Provider [phone] Reason for Referral Diagnostic Test (Routine) - Closed Specialty Diagnoses / Procedures Referred By Contact Refer red To Contact Radiology Diagnoses Mediastinal lymphadenopathy Nidhi Olsen APRN [facility] Rad Nuclear Med Procedures NM PET CT Skull Base [place] [address] [place] [address] Referral ID Status Reason Start Date Expiration Date Visits V isits Requested Authorized [id number] Closed Specialty 04/08/2022 10/09/2023 2 2 Service Requested Reason for Visit Diagnostic Test (Routine) - Closed Specialty Diagnoses / Procedures Referred By Contact Refer red To Contact Radiology Diagnoses Mediastinal lymphadenopathy Nidhi Olsen APRN [facility] Rad Nuclear Med Procedures NM PET CT Skull Base [place] [address] [place] [address] Referral ID Status Reason Start Date Expiration Date Visits V isits Requested Authorized [id number] Closed Specialty 04/08/2022 10/09/2023 2 2 Service Requested Encounter Details Date Type Department Care Team Description 04/21/2022 Hospital Encounter Nuclear Medicine at [place], Nidhi Mediastinal Ofelia Chaparro C, COMMERCIAL ACCOUNT EXECUTIVE lymphadenopathy, [facility] abnormal findings [address] right and left liver [place], [place] Pulmonary lobes, numerous very [address] Medicine small pulmonary [phone] [place] nodules [address] Social History Tobacco Use Types Packs/Day Years [...] place to sleep or slept in a custodial (including now)? Sex Assigned at Date Recorded [...] Take 81 mg by mouth 0 daily. furosemide (Lasix) 20 mg Take 2 tablets by 84 tablet 0 07/0 05/202205/08/2022 Tablet mouth 2 times daily for 14 days, THEN 1 tablet 2 times daily for 14 days. metoproloL tartrate Take 0.5 tablets by 30 tablet 3 022 08/05/2022 (Lopressor) 25 mg Tablet mouth 2 times daily. AMIOdarone (PACERONE) 400 Take 1 tablet by 30 tablet 0 07/0 04/202205/09/2022 mg Tablet mouth daily for 30 days. dextromethorphan-guaiFENe Take 5 mLs by mouth 0 [...] Care Team Description 08/21/2022 Scheduled View Only Sharon and Dameon Hernandez MD [facility] [place] [address] [address] HEMATOLOGY AND [place], [place] [id number] 08/21/2022 TH Visit (TeleHealth) Hematology and Reddy Hernandez Oncology [facility] [address] [place], [place] [address] (Wo rk) 08/21/2022 Infusion Hematology and Oncology 08/28/2022 Office Visit Hematology and Reddy Hernandez Oncology [facility] [address] [place], [place] [address] (Wo rk) 08/28/2022 Infusion Hematology and Oncology 09/11/2022 Office Visit Hematology and Reddy Hernandez MD [facility] [place] [address] [address] [place] AND [place], [place] [address] 09/11/2022 Infusion Hematology and Oncology 09/18/2022 Office Visit Hematology and Nikky Pak, Oncology [address] HEMATOLOGY AND [place], [place] [phone] (Wo rk) 09/18/2022 Infusion Hematology and Oncology 03/10/2023 Office Visit Cardiology Ofelia Rubalcava MD [facility] [address] [place] [address] (Wo rk) documented as of this encounter Procedures Procedure Name Priority Date/Time Associated Diagnosis Comme nts NM PET CT SKULL Routine 04/21/2022 10:36 AM Mediastinal Resul ts for this BASE TO MID-THIGH EDT lymphadenopathy, proced ure are in ([facility]) abnormal findings the result s right and left liver section . lobes, numerous very small pulmonary nodules documented in this encounter Results NM PET CT Skull [...] who have questions please contact the health group care worker that requested your imaging first. ? Electronically signed by: Katerin Heaton, [facility] ([phone]), at 04/21/2022 4:58 PM Narrative 04/21/2022 4:58 PM EDT EXAMINATION: NM PET CT STANDARD SKULL BASE TO MID-THIGH CLINICAL HISTORY: Lymphadenopathy, chest or axilla TECHNIQUE: Following IV injection of 18- alssad-8-wmdebwmeaihe (FDG) a standard uptake of approximately 60 [...] axilla TECHNIQUE: Following IV injection of 18- defqir-6-vgqpfqrynhsf (FDG) a standard uptake of approximately 60 [...] ho have questions please contact the health group care worker that requested your imaging first. Electronically signed by: Katerin Heaton, [facility] ([phone]), at 04/21/2022 4:58 PM Nidhi C Pretty COMMERCIAL ACCOUNT EXECUTIVE IMG PET ORDERABLES documented in this encounter [...] MAR Action Action Date Dose Rate Site fludeoxyglucose (F-18) FDG Given 04/21/2022 9:27 AM 15.8 mCi Right Arm injection 0-20 mCi EDT 0-20 mCi, Intravenous, ONCE PRN, 1 dose, Starting on Wed04/21/22 at 0930, Until Wed04/21/22 at 0927, Per Protocol, Radiology Contrast, Routine documented in this encounter Care Teams Security Incident Response Engineer Relationship Specialty Start Date End Date Harshal Godfrey MD PCP - General Family Medicine 02/18/22 [address] [place] [address] documented as of this encounter
--- OUTSIDE RECORDS SUMMARY | 2022-08-21 01:36 | XMS_ITS | Encounter Summary ---
:1950 Author Organization [facility] [place] [address] Care Team Providers Name Role Phone Harshal Godfrey MD Primary Care Provider [phone] Reason for Visit Diagnostic Test (Routine) - Closed Specialty Diagnoses / Procedures Referred By Contact Refer red To Contact Radiology Diagnoses Mediastinal lymphadenopathy Nidhi Olsen, JENN [facility] Rad Nuclear Med Procedures NM PET CT Skull Base to Mid-thigh [facility] [place] [address] [place] [address] Referral ID Status Reason Start Date Expiration Date Visits V isits Requested Authorized [id number] Closed Specialty 04/08/2022 10/09/2023 2 2 Service Requested Encounter Details Date Type Department Care Team Description 04/21/2022 Hospital Encounter Nuclear Medicine at [place]id[place] [address] Pulmonary Medicine [phone] [place], [place] [address] (Wo rk) Social History Tobacco [...] Take 1 tablet by 30 tablet 0 0 04/202205/09/2022 mg Tablet mouth daily for 30 [...] View Only Hematology and Dameon Hernandez MD [facility] [place] [address] [address] [place], [place] [address] 08/21/2022 TH Visit (TeleHealth) Hematology and Reddy Hernandez Oncology [facility] ONCOLOGY [place], [place] [address] (Wo rk) 08/21/2022 Infusion Hematology and Oncology 08/28/2022 Office Visit Hematology and Reddy Hernandez Oncology [facility] [address] [place] [address] (Wo rk) 08/28/2022 Infusion Hematology and Oncology 09/11/2022 Office Visit Hematology Reddy Young MD [facility] [place] [address] [address] HEMATOLOGY AND [place], [place] [phone] 09/11/2022 Infusion Hematology and Oncology 09/18/2022 Office Visit Hematology and Nikky Pak, Oncology [address] [place], [place] [phone] (Wo rk) 09/18/2022 Infusion Hematology and Oncology 03/10/2023 Office Visit Cardiology Ofelia Rubalcava MD [facility] [address] [place] [address] (Wo rk) documented as of this encounter Procedures Procedure Name Priority Date/Time Associated Diagnosis Comme nts NM PET CT SKULL Routine 04/21/2022 10:36 AM Mediastinal Resul ts for this BASE TO MID-THIGH EDT lymphadenopathy, proced ure are in (LCSR) abnormal findings the result s right and left liver section . lobes, numerous very small pulmonary nodules POCT GLUCOSE Routine 04/21/2022 9:23 AM Results f or this EDT procedure are i n the results section. documented in this encounter Results POCT Glucose (04/21/2022 9:23 AM EDT) athologist Signature POC Glucose 117 65 - 199 [facility] mg/dL [facility] Comment: Supplemental ranges: <140 mg/dL before meals <180 mg/dL all other times of the day Specimen Anatomical Collection Method Collection Time Receive d Time (Source) Location / / Volume Laterality Blood 04/21/2022 9:23 AM 9:23 EDT AM EDT Nidhi Olsen LOW PRESSURE BOILER OPERATOR POINT OF CARE TEST ORDERABLE S Performing Organization Address City/State/[place] [address] documented in this encounter Visit Diagnoses Not on filedocumented in this encounter Care Teams Pick And Shovel Man Relationship Specialty Start Date End Date Harshal Godfrey MD PCP - General Family Medicine 02/18/22 [address] [place] [address] documented as of this encounter
--- OUTSIDE RECORDS SUMMARY | 2022-08-21 01:36 | XMS_ITS | Encounter Summary ---
:1950 Author Organization [facility] [place] [address] Care Team Providers Name Role Phone Harshal Godfrey MD Primary Care Provider Encounter Details Date Type Department Care Team Description 04/10/2022 Orders Only Cardiac Surgery Konstantin Amado PA [facility] [place] [address] CARDIAC SURGERY [phone] [place] [id number] (Wo rk) Social History Tobacco Use Types [...] View Only Hematology and Dameon Hernandez MD [facility] [place] [address] [address] HEMATOLOGY AND [place], [place] [phone] 08/21/2022 TH Visit (TeleHealth) Hematology and Reddy Hernandez Oncology [facility] [address] [place] [address] (Wo rk) 08/21/2022 Infusion Hematology and Oncology 08/28/2022 Office Visit Hematology Reddy Young Oncology [facility] [address] [place], [place] [address] (Wo rk) 08/28/2022 Infusion Hematology and Oncology 09/11/2022 Office Visit Reddy Thompson MD [facility] [place] [address] On[address] HEMATOLOGY AND [place], [place] [phone] 09/11/2022 Infusion Hematology and Oncology 09/18/2022 Office Visit Hematology and Nikky Pak, Oncology [address] [place] [address] (Wo rk) 09/18/2022 Infusion Hematology and Oncology 03/10/2023 Office Visit Cardiology Ofelia Rubalcava MD [facility] [address] [place], [place] [address] (Wo rk) documented as of this encounter Visit Diagnoses Not on filedocumented in this encounter Care Teams Commercial Loan Specialist Relationship Specialty Start Date End Date Harshal Godfrey MD PCP - General Family Medicine 02/18/22 [address] [place], [place] [phone] documented as of this encounter
--- OUTSIDE RECORDS SUMMARY | 2022-08-21 01:36 | XMS_ITS | Encounter Summary ---
:1950 Author [place] [address] Care Team Providers Name Role Phone Harshal Godfrey MD Primary Care Provider [phone] Encounter Details Date Type Department Care Team Description 04/21/2022 Office Visit Pulmonology at [facility] MachoerLadarius, Mediastinal [facility] lymphadenopathy, [facility] [address] [address] right and left liver [phone] PULMONARY MEDIC[facility] NE lobes, numerous very [place] [id number] small pulmonary [phone] nodules (Work) Social History Tobacco Use Types [...] Sign Reading Time Taken Comments Blood Pressure 112/58 04/21/2022 1:01 PM EDT Pulse 95 04/21/2022 1:01 PM EDT Temperature 36.1 ??C (96.9 ??F) 04/21/2022 1:01 PM EDT Respiratory Rate 20 04/21/2022 1:01 PM EDT Oxygen Saturation 94% 04/21/2022 1:01 PM EDT Inhaled Oxygen - - Concentration Weight 98 kg (216 lb) 04/21/2022 1:01 PM this AM self- reported EDT Height 147.3 cm (4' 10) 04/21/2022 1:01 PM EDT Body Mass Index 45.14 04/21/2022 1:01 PM EDT documented in this encounter Progress Notes Ladarius Mitchell MD - 04/21/2022 1:00 PM EDT Images from the original note were not included. INTERVENTIONAL PULMONOLOGY OUTPATIENT CONSULT NOTE SECTION OF PULMONARY & CRITICAL CARE MEDICINE PATIENT NAME: Marcelle Conner : 1950 MEDICAL RECORD: [id number] DATE OF SERVICE: 04/21/22 REFERRING PHYSICIAN: Abdulkadir Raya MD PRIMARY CARE PHYSICIAN: Harshal Godfrey MD Chief Complaint: They saw some things on the lung and liver History of Present Illness: Ms. Marcelle Conner is a 72 y.o. woman who has been sent to Interventional Pulmonology for consultation regarding mediastinal lymphadenopathy. This patient was recently admitted at [facility] from 03/30/22-04/09/22 for Ao valve stenosis and multivesselCAD. She underwent AVR/aortoplasty and CABGx2 on 03/30/22. She underwent a CT chest on 03/23/22 (no comparison) which demonstrated a variety of findings including multiple bilateral sub-CM pulmonary nodules and lymphadenopathy involving stations 4R and 7 at a minimum, and possibly the swati although limited evaluation on this non-contrast enhanced study (the largest being 19x34 mm at station 4R). In addition, there is a nodular contour of the liver with areas of calcifications and subtle low densities.Our program was contacted by CT surgery immediately before his discharge on 04/08/22 to facilitate outpatient work-up. Pertinent medications now include Aspirin and Plavix (amongst others). In speaking with Ms. Marcelle Conner, she has chronic dyspnea which has fluctuated since her surgery.She is prescribed inhalers but does not use them - she tells me these were stopped by her PCP. No cough. Intermittent sputum production which is clear/thin. No hemoptysis. No weight loss. No personal hi story of malignancy. She was never enrolled in lung cancer screening but reports being up to date with other age appropriate cancer screening. Review of Systems: A 12 point ROS was negative aside from as listed in the HPI. Past Medical/Surgical History: Patient Active Problem List Diagnosis Code ??? Dermatitis L30.9 ??? Diabetes mellitus E11.9 ??? Hypertension I10 ??? SOB (shortness of breath) R06.02 ??? Bradycardia R00.1 ??? Left atrial dilation I51.7 ??? Aortic stenosis, severe I35.0 ??? Lung nodule R91.1 ??? CAD (coronary artery disease) I25.10 ??? S/P AVR (aortic valve replacement) and aortoplasty and CABG Z95.2 ??? Class 3 severe obesity in adult E66.01 ??? Pulmonary hypertension I27.20 ??? Mediastinal lymphadenopathy, abnormal findings right and left liver lobes, numerous very small pulmonary nodules R59.0 Medications: Prior to Admission medications Medication Sig Start Date End Date Taking? Authorizing Provider clopidogreL (Plavix) 75 mg Tablet Take 1 tablet by mouth daily for 360 days. 04/10/22 04/05/23 Yes Konstantin Amado PA metoproloL tartrate (Lopressor) 25 mg Tablet Take 0.5 tablets by mouth 2 times daily. 04/10/22 Yes Konstantin Amado PA furosemide (Lasix) 20 mg Tablet Take 2 tablets by mouth 2 times daily for 14 days, THEN 1 tablet 2 times daily for 14 days. 04/10/22 05/08/22 Yes Konstantin Amado PA acetaminophen (Tylenol) 500 mg Tablet Take 2 tablets by mouth every 6 hours as needed for Pain. 04/08/22 Yes Konstantin Amado PA AMIOdarone (PACERONE) 400 mg Tablet Take 1 tablet by mouth daily for 30 days. 04/09/22 05/09/22 Yes Konstantin Amado PA amoxicillin (Amoxil) 500 mg Capsule Take 4 capsules by mouth as needed. Take 4 tablets, 2000mg, 1 hour before dental procedures. 04/08/22 Yes Konstantin Amado PA nystatin (MYCOSTATIN) 100,000 unit/gram Powder Apply 1 Application topically daily as needed. PRN 11/30/21 Yes PROVIDER, HISTORICAL multivitamin (THERAGRAN) Tablet Take 1 tablet by mouth daily. Yes PROVIDER, HISTORICAL diphenhydrAMINE (Benadryl) 25 mg Capsule Take 50 mg by mouth nightly as needed for Itching. Yes PROVIDER, HISTORICAL vit A/C/E ac/ZnOx/cupric oxide (EYE VITAMIN AND MINERALS ORAL) Take 1 tablet by mouth 2 times daily.[facility] Yes PROVIDER, HISTORICAL citalopram (CeleXA) 20 mg Tablet Take 20 mg by mouth daily. 03/13/21 Yes PROVIDER, HISTORICAL simvastatin (ZOCOR) 20 mg tablet Take 20 mg by mouth nightly. Yes PROVIDER, HISTORICAL metFORMIN (GLUCOPHAGE) 500 mg tablet Take 500 mg by mouth 2 times daily (with meals). Yes PROVIDER, HISTORICAL aspirin 81 mg EC tablet Take 81 mg by mouth daily. Yes PROVIDER, HISTORICAL dextromethorphan-guaiFENesin (Robitussin) 10-100 mg/5 mL Syrup Take 5 mLs by mouth 3 times daily as needed for Cough. Patient not taking: Reported on 04/20/2022 04/08/22 Konstantin Amado PA ProChamber Spacer Inhale 1 Package into the lungs every 6 hours as needed. 12/22/21 PROVIDER, HISTORICAL albuteroL 90 mcg/actuation HFA Aerosol Inhaler Inhale 2 puffs into the lungs every 4 hours as neededfor Wheezing. Use with spacer PROVIDER, HISTORICAL Allergies: No Known Allergies Objective: Patient Vitals for the past 24 hrs: Temp Pulse Resp BP SpO2 04/21/22 1301 36.1 ??C (96.9 ??F) 95 20 112/58 94 % General: This is a 72 y.o. 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 Diffuse mosaic pattern of the lungs. Small indistinct patchy opacities at the right lung base. Multiple bilateral subcentimeter pulmonary nodules (series 4 image 45, 57, 79, 129, 130, 134, 139, 164, 189, 199). Airways: Central and segmental airways are patent. Pleura: Only trace pleural fluid on the right. Lymph nodes: Conglomerate abnormally enlarged right paratracheal lymph nodes measuring up to 19 x 34mm. Prominent subcarinal lymph nodes. Evaluation of hilar lymphadenopathy is limited by noncontrast technique. Upper abdomen: Nodular contour of the liver parenchyma. Coarse calcifications at the left liver lobe. Decreased density throughout the left liver lobe. Subtle low densities in the posterior aspect of the right liver lobe (series 4 image 233) as well as in the inferior anterior aspect of the right liver lobe (image 322). 04/21/22 PET/CT: Official interpretation pending; avidity of 4R noted on this image, I suspect increased areas of hepatic uptake as well Assessment: Ms. Marcelle Conner is a pleasant 72 y.o. gentleman who has been sent to me for consultation in regards to mediastinal/hilar lymphadenopathy, bilateral sub-CM pulmonary nodules, and potentially concerning hepatic features on 03/23/22 CT chest. Mr. Combs was recently admitted at [facility] from 03/30/22-04/09/22for Ao valve stenosis and multivessel CAD. He underwent AVR/aortoplasty and CABGx2 on 03/30/22. Cross-sectional imaging specification demonstrates multiple bilateral sub-CM pulmonary nodules and lymphadenopathy involving stations 4R and 7 at a minimum, and possibly the swati although limited evaluation on this non-contrast enhanced study (the largest being 19x34 mm at station 4R). In addition, there comment of a nodular contour of the liver with areas of calcifications and subtle low densities. A PET/CT was ordered and completed today however the interpretation is pending at the time of this consultation. Upon my review, at a minimum, there is uptake at station 4R which is more homogeneous PET avid, possible foci of uptake at other stations, and increased hepatic uptake (I suspect). We reviewed herimaging together and discussed the differential. The chronicity of these findings is not known to usand we discussed the possibility these are more chronic changes representing an indolent/stable inflammatory process such as Sarcoidosis for example. Infectious etiology are not favored at this time. Lastly, we discussed our inability to rule out a neoplastic process (solid tumor or hematologic) but that the final report of the PET/CT would be helpful in possibly delineating some of these considerations (or at least ensuring there isn't evidence of metastatic disease elsewhere/a non-pulmonary primary site that would change our thinking of her chest imaging). We discussed various options including surveillance imaging and the role of bronchoscopy with EBUS-TBNA. I also recognize she is only a few weeks our from her cardiac surgery, although otherwise doing well and she would need to be ideally cleared for a Plavix hold if possible (but not prohibitive to EBUS if necessary to perform on DAPT). Fornow, our plan is to await the final interpretation of today's PET/CT. I will then call her in the next 24 hours to review and finalize our plan moving forward (primarily surveillance imaging versus bronchoscopy unless something extra-thoracic warrants an alternative form of biopsy). The patient's performance status using the ECOG assessment tool is 1 (restricted in physically strenuous activity but ambulatory/able to carry out work of a light nature). Ms. Marcelle Conner was provided ample time to ask questions which were answered to her liking. Recommendations: ?? A PET/CT was ordered and completed today ?? Await final PET/CT interpretation - I will then call her to finalize our next steps ?? Remainder of plan as noted above ?? Note to be sent to Harshal Godfrey MD ?? Follow-up with me at time of pending phone call to discuss next steps in management I personally performed a total of 60 minutes or greater of aggregate time involved in patient evaluation, reviewing medical records, interpreting diagnostic studies (imaging and/or labs), formulating my plan, and documentation of this consultation note. Ladarius Mitchell MD Interventional Pulmonology Section of Pulmonary & Critical Care Pager: [phone] documented in this encounter Plan of Treatment Upcoming Encounters Date Type Specialty Care Team Description 08/21/2022 Scheduled View Only Hematology Dameon Young MD [facility] [place] [address] [address] HEMATOLOGY AND [place], [place] [id number] 08/21/2022 TH Visit (TeleHealth) Hematology and Reddy Hernandez Oncology [facility] [address] [place], [place] [address] (Wo rk) 08/21/2022 Infusion Hematology and Oncology 08/28/2022 Office Visit Hematology Reddy Young Oncology [facility] [address] [place], [place] [address] (Wo rk) 08/28/2022 Infusion Hematology and Oncology 09/11/2022 Office Visit Reddy Thompson MD [facility] [address] [address] HEMATOLOGY AND [place], [place] [address] 09/11/2022 Infusion Hematology and Oncology 09/18/2022 Office Visit Hematology and Nikky Pak, Oncology [address] [place], [place] [address] (Wo rk) 09/18/2022 Infusion Hematology and Oncology 03/10/2023 Office Visit Cardiology Ofelia Rubalcava MD [facility] [address] [place], [place] [address] (Wo rk) documented as of this encounter Visit Diagnoses Diagnosis Mediastinal lymphadenopathy, abnormal fi ndings right and left liver lobes, numerous very small pulmonary nodules Enlargement of lymph nodes Colon cancer metastasized to liver Malignant neoplasm of colon, unspecified site documented in this encounter Care Teams Copper Plate Printer Relationship Specialty Start Date End Date Harshal Godfrey MD PCP - General Family Medicine 02/18/22 [facility] [place], [place] [phone] documented as of this encounter
--- OUTSIDE RECORDS SUMMARY | 2022-08-21 01:36 | XMS_ITS | Encounter Summary ---
:1950 Author Organization [place] [address] Care Team Providers Name Role Phone Harshal Godfrey MD Primary Care Provider [phone] Encounter Details Date Type Department Care Team Description 04/23/2022 Telephone Pulmonology at [facility] [place] [address] Social History Tobacco Use Types Packs/Day [...] place to sleep or slept in a mcc (including now)? Sex Assigned at Date Recorded Not on file documented as of this encounter Plan of Treatment Upcoming Encounters Date Type Specialty Care Team Description 08/21/2022 Scheduled View Only Hematology and Dameon Hernandez MD [facility] [place] [address] On[address] HEMATOLOGY AND [place], [place] [phone] 08/21/2022 TH Visit (TeleHealth) Hematology Reddy Young Oncology [facility] [address] [place], [place] [address] (Wo rk) 08/21/2022 Infusion Hematology and Oncology 08/28/2022 Office Visit Hematology and Reddy Hernandez Oncology [facility] [address] [place], [place] [address] (Wo rk) 08/28/2022 Infusion Hematology and Oncology 09/11/2022 Office Visit Sharon and Reddy Hernandez MD [facility] [place] [address] On[address] [place] AND [place], [place] [phone] 09/11/2022 Infusion Hematology and Oncology 09/18/2022 Office Visit Hematology and Nikky Pak, Oncology [address] [place] AND [place], [place] [phone] (Wo rk) 09/18/2022 Infusion Hematology and Oncology 03/10/2023 Office Visit Cardiology Ofelia Rubalcava MD [facility] Dr [place], [place] [address] (Wo rk) documented as of this encounter Visit Diagnoses Not on filedocumented in this encounter Care Teams Sweeper Operator Highways Relationship Specialty Start Date End Date Harshal Godfrey MD PCP - General Family Medicine 02/18/22 [facility] [place] [address] documented as of this encounter
--- OUTSIDE RECORDS SUMMARY | 2022-08-21 01:36 | XMS_ITS | Encounter Summary ---
:1950 Author Organization [facility] [place] [address] Care Team Providers Name Role Phone Harshal Godfrey MD Primary Care Provider [phone] Encounter Details Date Type Department Care Team Description 04/22/2022 Telephone Pulmonology at [facility] [place] [address] Social History Tobacco Use Types Packs/Day [...] and Dameon Hernandez MD [facility] [address] Oncology [address] HEMATOLOGY AND [place], [place] [phone] 08/21/2022 TH Visit (TeleHealth) Hematology and Reddy Hernandez Oncology [facility] [address] [place], [place] [address] (Wo rk) 08/21/2022 Infusion Hematology and Oncology 08/28/2022 Office Visit Hematology and Reddy Hernandez Oncology [facility] [address] [place], [place] [address] (Wo rk) 08/28/2022 Infusion Hematology and Oncology 09/11/2022 Office Visit Sharon and Reddy Hernandez MD [facility] [place] [address] Oncology [address] HEMATOLOGY AND [place], [place] [phone] 09/11/2022 Infusion Hematology and Oncology 09/18/2022 Office Visit Hematology and Nikky Pak, Oncology [address] HEMATOLOGY AND [place], [place] [phone] (Wo rk) 09/18/2022 Infusion Hematology and Oncology 03/10/2023 Office Visit Cardiology Ofelia Rubalcava MD [facility] [address] [place], [place] [address] (Wo rk) documented as of this encounter Visit Diagnoses Not on filedocumented in this encounter Care Teams Aerologist Relationship Specialty Start Date End Date Harshal Godfrey MD PCP - General Family Medicine 02/18/[address] [place] [address] documented as of this encounter
--- OUTSIDE RECORDS SUMMARY | 2022-08-21 01:36 | XMS_ITS | Encounter Summary ---
:1950 Author Organization [facility] [place] [address] Care Team Providers Name Role Phone Harshal Godfrey MD Primary Care Provider [phone] Reason for Visit Reason Comments Medication Refill Encounter Details Date Type Department Care Team Description 04/17/2022 Refill Cardiac Surgery at [facility] Konstantin Amado [place] [place] [address] CARDIAC SURGERY [phone] [place], [place] [address] (Wo rk) Social History Tobacco [...] View Only Hematology and Dameon Hernandez MD [facility] [place] [address] [address] HEMATOLOGY AND [place], [place] [phone] 08/21/2022 TH Visit (TeleHealth) Hematology and Reddy Hernandez Oncology [facility] [address] [place], [place] [address] (Wo rk) 08/21/2022 Infusion Hematology and Oncology 08/28/2022 Office Visit Hematology Reddy Young Oncology [facility] [address] [place], [place] [address] (Wo rk) 08/28/2022 Infusion Hematology and Oncology 09/11/2022 Office Visit Reddy Thompson MD [facility] [place] [address] Oncology [address] [place] AND [place], [place] [phone] 09/11/2022 Infusion Hematology and Oncology 09/18/2022 Office Visit Hematology and Nikky Pak, Oncology [address] [place], [place] [address] (Wo rk) 09/18/2022 Infusion Hematology and Oncology 03/10/2023 Office Visit Cardiology Ofelia Rubalcava MD [facility] Dr [place], [place] [address] (Wo rk) documented as of this encounter Visit Diagnoses Not on filedocumented in this encounter Care Teams Water Softener Servicer Relationship Specialty Start Date End Date Harshal Godfrey MD PCP - General Family Medicine 02/18/22 [facility] [place], [place] [phone] documented as of this encounter
--- OUTSIDE RECORDS SUMMARY | 2022-08-21 01:36 | XMS_ITS | Encounter Summary ---
:1950 [place] [address] Care Team Providers Name Role Phone Harshal Godfrey MD Primary Care Provider [phone] Encounter Details Date Type Department Care Team Description 04/08/2022 Telephone Cardiology at Ofelia Ray MD [address] [facility] [place] [facility] [place] [address] [place] [address] [phone] (Wo rk) Social History Tobacco Use Types [...] View Only Hematology and Dameon Hernandez MD [facility] [address] [address] HEMATOLOGY AND [place], [place] [phone] 08/21/2022 TH Visit (TeleHealth) Hematology and Reddy Hernandez Oncology [facility] [address] [place], [place] [address] (Wo rk) 08/21/2022 Infusion Hematology and Oncology 08/28/2022 Office Visit Hematology Reddy Young Oncology [facility] [address] [place], [place] [address] (Wo rk) 08/28/2022 Infusion Hematology and Oncology 09/11/2022 Office Visit Reddy Thompson MD [facility] [place] [address] [address] HEMATOLOGY AND [place], [place] [phone] 09/11/2022 Infusion Hematology and Oncology 09/18/2022 Office Visit Hematology and Nikky Pak, Oncology [address] [place] [address] (Wo rk) 09/18/2022 Infusion Hematology and Oncology 03/10/2023 Office Visit Cardiology Ofelia Rubalcava MD [facility] [address] [place], [place] [address] (Wo rk) documented as of this encounter Visit Diagnoses Not on filedocumented in this encounter Care Teams Cleaner Relationship Specialty Start Date End Date Harshal Godfrey MD PCP - General Family Medicine 02/18/22 [address] [place], [place] [phone] documented as of this encounter
--- OUTSIDE RECORDS SUMMARY | 2022-08-21 01:37 | XMS_ITS | Encounter Summary ---
:1950 Author Organization [facility] [place] [address] Care Team Providers Name Role Phone Harshal Godfrey MD Primary Care Provider [phone] Reason for Referral Diagnostic Test (Routine) - Closed Specialty Diagnoses / Procedures Referred By Contact Refer red To Contact Cardiology Diagnoses S/P Rico Ray PA [facility] Non-Inv Card Lab Procedures Echocardiogram Transthoracic [place] [address] [place] [address] Phone: Fax: Referral ID Status Reason Start Date Expiration Date Visits V isits Requested Authorized [id number] Closed Specialty 04/02/2022 04/02/2023 1 1 Service Requested Encounter Details Date Type Department Care Team Description 04/02/2022 Orders Only Cardiac Surgery at D [facility] Abdulkadir Raya MD S/P LILIANA [facility] [place] [address] CARDIAC SURGERY [phone] [place] [address] (Wo rk) Social History Tobacco Use Types [...] Scheduled View Only Hematology Dameon Young MD [facility] [place] [address] Oncology Nikky Pak [address] [place] [address] 08/21/2022 TH Visit (TeleHealth) Reddy Thompson Oncology [facility] [address], [place] [address] (Wo rk) 08/21/2022 Infusion Hematology and Oncology 08/28/2022 Office Visit Reddy Thompson Oncology [facility] [address] [place], [place] [address] (Wo rk) 08/28/2022 Infusion Hematology and Oncology 09/11/2022 Office Visit Hematology and Reddy Hernandez MD [facility] [place] [address] [address] HEMATOLOGY AND [facility], [place] [id number] 09/11/2022 Infusion Hematology and Oncology 09/18/2022 Office Visit Hematology and Nikky Pak, Oncology [address] HEMATOLOGY AND [facility], [place] [id number] (Wo rk) 09/18/2022 Infusion Hematology and Oncology 03/10/2023 Office Visit Cardiology Ofelia Rubalcava MD [facility] [place], [place] [address] (Wo rk) documented as of this encounter Results EKG 12 Lead (05/15/2022 2:24 PM EDT) Component Value Ref Range Test Analysis Performed Pathologis t Method Time At Signature Ventricular rate 93 BPM MUSE SYSTEM Atrial Rate 93 BPM MUSE SYSTEM P-R Interval 156 ms MUSE SYSTEM QRS Duration 132 ms MUSE SYSTEM Q-T Interval 390 ms MUSE SYSTEM QTC Calculated 484 ms MUSE SYSTEM (Bezet) Calculated P [place] 71 degrees MUSE SYSTEM Calculated R [place] 103 degrees MUSE SYSTEM Calculated T [place] 74 degrees MUSE SYSTEM INTERPRETATION Normal sinus [...] City/State/ZIP Code Phon e Number MUSE SYSTEM ECHOCARDIOGRAM COMPLETE W CONTRAST (05/15/2022 1:21 PM [...] 1950 ? Height: 147 cm ? Account: [id number] Age: 72 yrs ? 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 Interpretation Summary Left ventricle is of normal [...] There is moderate tricuspid regurgitatio n Procedure [id number]. 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 Interpretation Summary Left ventricle is of normal [...] There is moderate tricuspid regurgitatio n Procedure [id number]. 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 ? Electronically signed by: Katerin Heaton, [facility] ([phone]), at 05/15/2022 2:29 PM Narrative 05/15/2022 2:29 PM EDT EXAMINATION: XR [...] 05/15/2022 EXAMINATION: XR CHEST PA AND LATERAL (GE NERIC) CLINICAL HISTORY: s/p AVR TECHNIQUE: PA and [...] ho have questions please contact the health skin care technician that requested your imaging first. Electronically signed by: Katerin Heaton, [facility] ([phone]), at 05/15/2022 2:29 PM Abdulkadir Raya MD IMG DX ORDERABLES documented in this encounter Visit Diagnoses Diagnosis S/P AVR Heart valve replaced by other means S/P AVR Heart valve replaced by other means S/P AVR Heart valve replaced by other means Colon cancer metastasized to liver Malignant neoplasm of colon, unspecified site documented in this encounter Care Teams Manager Mac Relationship Specialty Start Date End Date Harshal Godfrey MD PCP - General Family Medicine 02/18/[address] [place] [id number] documented as of this encounter
--- OUTSIDE RECORDS SUMMARY | 2022-08-21 01:37 | XMS_ITS | Encounter Summary ---
:1950 Author Organization [place] [address] Care Team Providers Name Role Phone Harshal Godfrey MD Primary Care Provider [phone] Reason for Referral Consultation (Routine) - Authorized Specialty Diagnoses / Procedures Referred By Contact Refer red To Contact Diagnoses S/P AVR (aortic valve replacement) and aortoplasty S/P CABG x 2 Abdulkadir Raya MD Cardiac Rehab, [facility] CARDIAC SURGERY [address] [address] Referral ID Status Reason Start Date Expiration Visits Visits Date Requested Authorized [id number] Authorized Consult, 04/08/2022 10/05/2022 36 36 Test & Treat [facility] (Routine) - Authorized Specialty Diagnoses / Procedures Referred By Contact Refer red To Contact Diagnoses S/P AVR (aortic valve replacement) and aortoplasty S/P CABG x 2 Abdulkadir Raya MD [facility] [place] [address] Referral ID Status Reason Start Date Expiration Visits Visits Date Requested Authorized [id number] Authorized Consult, 04/08/2022 10/05/2022 999 999 Test & Treat Reason for Visit Auth/Cert Specialty Diagnoses / Procedures Referred By Contact Refer red To Contact Diagnoses CAD (coronary artery disease) CAD/ . Abdulkadir Raya, [facility] Procedures PRO REPLACEMENT PROSTHETIC AORTIC VALVE OPEN W CARDIOPULMONARY BYPASS HOMOGRF/STENT PRO CABG, ARTERIAL, SINGLE PRO CABG, ARTERY-VEIN, TWO PRO ENDOSCOPY W/VIDEO-ASST VEIN HARVEST, CABG @REPLACE AORTIC VALVE, OPEN, W\CPB, W\PROSTHETIC VALVE (WRVU 41.32) @CABG, USING ARTERIAL GRAFT;SINGLE ARTERIAL GRAFT (WRVU 33.75) @CABG, TWO VENOUS GRAFTS & ARTERIAL GRAFT (WRVU 7.93) ENDOSCOPIC HARVEST VEIN(S) FOR CABG (WRVU 0.31) [facility] [place] [address] Referral ID Status Reason Start Date Expiration Date Visits Requ ested Visits Authorized [id number] 1 1 Encounter Details Date Type Department Care Team Description 03/30/2022 - Hospital Cardiovascular Ofelia Raya, Aortic v alve stenosis, etiology of cardiac valve disease unspecified; 04/08/2022 Encounter [facility] MD Abdulkadir S/P AVR (aortic valve replacement) and a ortoplasty and CABG; [facility] S/P AVR (aortic valve replac ement) and aortoplasty; [facility] DR Toro CABG x 2; Drive CARDIAC SURGERY [place] [address] [place], [place] [phone] [id number] Social History Tobacco Use Types Packs/Day Years [...] Sign Reading Time Taken Comments Blood Pressure 126/68 04/08/2022 11:55 AM EDT Pulse 88 04/08/2022 11:55 AM EDT Temperature 36.8 ??C (98.2 ??F) 04/08/2022 11:55 AM EDT Respiratory Rate 23 04/08/2022 11:55 AM EDT Oxygen Saturation 97% 04/08/2022 11:55 AM EDT Inhaled Oxygen Concentration - - Weight 105.1 kg (231 lb 11.3 oz) 04/08/2022 6:06 AM EDT Height 147.3 cm (4' 9.99) 03/30/2022 7:21 AM EDT Body Mass Index 48.44 03/30/2022 7:21 AM EDT documented in this encounter Discharge Summaries Konstantin Amado PA - 04/08/2022 9:15 AM EDT Inpatient - Discharge Summary Patient Name: Marcelle Albarran Patient Age: 72 y.o. Birthdate: 1950 Language: Solomon Islander Race: White Ethnicity: Not nor Admit Date: 03/30/2022 Discharge Date: 04/08/2022 Attending Physician: Abdulkadir Raya MD Follow-up Recommendations for Providers: ??? Please continue routine management of cardiovascular risk factors including blood pressure, lipids, glucose, etc. ??? Please note any changes to medications. ??? Patient to follow up with PCP, Harshal Godfrey MD, in 1-2 weeks. ??? Patient to follow up with Parcel Post Weigher, fOelia Rubalcava MD, 04/29/22. ??? Patient to follow up with Cardiac Surgeon, Dr. Abdulkadir Raya, 05/08/22 with a chest x-ray, EKG, and Echo. ??? Patient to follow up with Pulmonology. Inpatient Provider Contact Information: [facility] Section of Cardiac Surgery [facility] [place] [address] FAX [phone] Discharge Diagnoses (Hospital Problems) Primary Diagnoses: Aortic Valve Stenosis Multivessel CAD S/P tissue AVR/aortoplasty and CABGx2 03/30/22 Secondary Diagnoses: Active Hospital Problems Diagnosis ??? S/P AVR (aortic valve replacement) and aortoplasty and CABG ??? Mediastinal lymphadenopathy, abnormal findings right and left liver lobes, numerous very small pulmonary nodules ??? Class 3 severe obesity in adult ??? Pulmonary hypertension ??? CAD (coronary artery disease) ??? Hypertension ??? Diabetes mellitus Resolved Hospital Problems No resolved problems to display. Other Diagnoses (Chronic Problems): Active Non-Hospital Problems Diagnosis ??? Bradycardia ??? Left atrial dilation ??? Aortic stenosis, severe ??? SOB (shortness of breath) ??? Lung nodule ??? Dermatitis Discharged to: Patient discharged to home Functional and Cognitive Status: At baseline Discharge Conditions/Prognosis: Stable Past Medical History: Diagnosis Date ??? Chronic [...] HYSTERECTOMY, TOTAL ABDOMINAL ? ? PRG CATH [facility] CORONARY ART W/INJ FOR ANGIO W/R HEART CATH IMG S&I N/A 03/19/2022 CORONARY ANGIOGRAPHY; W RHC performed by Dwayne Rachel MD at [facility] CATH LABS ??? PRO CABG, ARTERIAL, SINGLE N/A 03/30/2022 @CABG, USING ARTERIAL GRAFT;SINGLE ARTERIAL GRAFT (WRVU 33.75) performed by Abdulkadir Raya MDat [facility] OR ??? PRO CABG, ARTERY-VEIN, SINGLE N/A 03/30/2022 @CABG, VENOUS & ARTERIAL GRAFT;SINGLE VEIN GRAFT (WRVU 3.61) performed by Abdulkadir Raya MD at [facility] OR ??? PRO ENDOSCOPY W/VIDEO-ASST VEIN HARVEST, CABG Left 03/30/2022 ENDOSCOPIC HARVEST VEIN(S) FOR CABG (WRVU 0.31) performed by Abdulkadir Raya MD at [facility] OR ??? PRO REPLACEMENT PROSTHETIC AORTIC VALVE OPEN W CARDIOPULMONARY BYPASS HOMOGRF/STENT N/A 03/30/2022 @REPLACE AORTIC VALVE, OPEN, W\CPB, W\PROSTHETIC VALVE (WRVU 41.32) performed by Abdulkadir Raya MD at [facility] OR ??? PRO UNLISTED CARDIAC SURG PROCEDURE N/A 03/30/2022 REPAIR, PATCH, AORTIC ROOT (WRVU 5.94) performed by Abdulkadir Raya MD at [facility] OR ??? WRIST SURGERY Bilateral Prior To Admission Medications Medications Prior to Admission Medication Sig Dispense Refill Last Dose ??? furosemide (Lasix) 20 mg Tablet Take 20 mg by mouth 2 times daily. 03/27/2022 at Unknown time ??? albuteroL (Proventil) 2.5 mg /3 mL (0.083 %) Solution for Nebulization Take 2.5 mg by nebulization every 4 hours as needed for Wheezing. Past Week at Unknown time ??? multivitamin (THERAGRAN) Tablet Take 1 tablet by mouth daily. 03/27/2022 at Unknown time ??? diphenhydrAMINE (Benadryl) 25 mg Capsule Take 50 mg by mouth nightly as needed for Itching. 03/26/2022 at Unknown time ??? vit A/C/E ac/ZnOx/cupric oxide (EYE VITAMIN AND MINERALS ORAL) Take 1 tablet by mouth 2 times daily. [facility] 03/27/2022 at Unknown time ??? citalopram (CeleXA) 20 mg Tablet Take 20 mg by mouth daily. 03/27/2022 at Unknown time ??? albuteroL 90 mcg/actuation HFA Aerosol Inhaler Inhale 2 puffs into the lungs every 4 hours as needed for Wheezing. Use with spacer Past Month at Unknown time ??? simvastatin (ZOCOR) 20 mg tablet Take 20 mg by mouth nightly. 03/26/2022 at Unknown time ??? verapamil (CALAN-SR) 180 mg CR tablet Take 180 mg by mouth daily. 03/27/2022 at Unknown time ??? metFORMIN (GLUCOPHAGE) 500 mg tablet Take 500 mg by mouth 2 times daily (with meals). 03/27/2022 at Unknown time ??? losartan (COZAAR) 100 mg Tablet Take 100 mg by mouth daily. 03/27/2022 at Unknown time ??? aspirin 81 mg EC tablet Take 81 mg by mouth daily. 03/27/2022 at Unknown time ??? nystatin (MYCOSTATIN) 100,000 unit/gram Powder Apply 1 Application topically daily as needed. ??? ProChamber Spacer Inhale 1 Package into the lungs every 6 hours as needed. ??? chlorhexidine (HIBICLENS) 4 % Liquid Apply topically daily as needed. Shower from head to toe with Chlorhexidine the night before surgery . 120 mL 0 Unknown at Unknown time ??? mupirocin (Bactroban) 2 % Ointment Apply 1 each topically 2 times daily. Apply a small amount toeach nostril twice daily. Begin 5 days prior to the day of surgery. 22 g 0 Unknown at Unknown time Updated Allergies/ADRs: No Known Allergies History of Presentation: I am seeing Marcelle Albarran at the request of Harshal Godfrey for evaluation of ?? Marcelle Albarran is a 72 y.o. female with a history of bradycardia, left atrial dilation, aortic stenosis, DM, HTN, and lung nodules who presents for evaluation of her aortic valve disease. The patient reports a history of worsening dyspnea with exertion over there past several months. She denies chest pain or any recent episodes of syncope. Her diabetes is well controlled. She recently had a pneumoniawhich she feels has further hindered her breathing. She has a history of sever GI operations and had a bowel obstruction a few years ago. She recently had a cardiac cath showing multi-vessel CAD. Major Procedures/Operations: 03/30/22 - AVR, Ascending Aorta Pericardial Patch, CABGx2 Hospital Course: , CAD s/p AVR, Ascending Aorta Pericardial Patch, CABGx2 Marcelle Albarran was admitted to [facility] on 03/30/2022 via the Same Day Program. She was brought to the operating room where Dr. Abdulkadir Raya performed a tissue aortic valve replacement and CABG. She tolerated the procedure and was brought to the Cardiovascular Intensive Care Unit for recovery. She initially required the pharmacologic support of intravenous epi, levo, vaso. She was extubated from the ventilator the morning of POD1. All drips were weaned to off. Routine postoperative and home medications were started. Aspirin 81mg daily was started. Plavix 75mg daily was started and should be continued for 1 year from surgery. Statin therapy was continued. She was started on beta blockade and this was optimized. Diuretics were started and she responded appropriately. She was transferred to the Intermediate Cardiac Care Unit for continued rehabilitation. All tubes, lines, and epicardial pacing wires were removed without incident. She voided normally after her Carreon was removed. Left pneumothorax On cxr was found to have a left pneumothorax. Pigtail ct was placed. Pneumothorax resolved and chesttube was removed without incident. Right pleural effusion Pt had right pigtail placed for pleural effusion. This was removed after output waned with post-pullCXR showing resolved effusion and no pneumothorax. Acute low cardiac output heart failure VAISHNAVI Cardiorenal syndrome Patient had come from the OR on epinephrine which was weaned off. Patient's urine output declined and creatinine lilian despite diuretic therapy. Cr peak of 1.34 from baseline of <1.0. She also had hyperkalemia with peak K of 6.0. [place] was placed and confirmed low cardiac output and elevated PA pressures. Dobutamine was started with improvement in cardiac output. Diuretic therapy was continued and her urine output responded well and she was net negative. Echo was completed, though with poor views, LVEF 50-55%, normal functioning bioprosthetic aortic valve with mean gradient of 18. Dobutamine was weaned off after several days of diuresis. Her cardiac index remained well above 2.0 and her urine output remained stable. She was started on low dose beta blockade. She is being discharged on lasix taper and should continue diuretic until follow up. Her BP did not allow for restarting her home losartanbut this should be restarted when able. Acute Post-op Pulmonary Insufficiency She required supplemental oxygen for several days related to splinting from post-op pain as well as a right pleural effusion that was drained. She was able to be weaned off oxygen following diuretic therapy and aggressive pulmonary toilet. Enlarged mediastinal lymph nodes Multiple pulmonary nodules Liver abnormalities on CT Her pre-op CT chest showed multiple sub centimeter pulmonary nodules and an abnormally enlarged right paratracheal lymph node measuring ~2cm x 3.5cm. Abnormal liver densities/hypodensities were seen aswell. These findings were concerning for malignancy. Given her extensive smoking history Pulmonologywas consulted and plans for early outpatient follow up were made with likely EBUS. Post-op Atrial Fibrillation She developed atrial fibrillation post-operative and was loaded with amiodarone for rhythm control. She converted to NSR. She will continue on amiodarone for 1 month until follow up with cardiac surgery. Coumadin was not started as she only had a single episode of atrial fibrillation. She was started on beta blockade after dobutamine was stopped. She was seen by Physical Therapy and Cardiac Rehabilitation. Sternal precaution education was provided. Her discharge plan at this time is to home with VNA. The remainder of her hospital course was uneventful and by postoperative day #9 she had met all criteria for discharge. Pain was controlled on oral medications. She had walked 5 minutes and gone up and down stairs. She was tolerating a regular diet and had a bowel movement. Vital Signs at Discharge: Last set of vitals: BP 99/62 (BP Location (NBP): Left arm, Patient Position: Sitting) Pulse 96 Temp 36.8 ??C (98.2 ??F) (Oral) Resp 24 Ht 147.3 cm (4' 9.99) Wt 105.1 kg (231 lb 11.3 oz) SpO2 94% BMI 48.44 kg/m?? Patient Vitals for the past 168 hrs: Weight 04/08/22 0606 105.1 kg (231 lb 11.3 oz) 04/07/22 0604 105.7 kg (233 lb 0.4 oz) 04/06/22 0650 107.2 kg (236 lb 5.3 oz) 04/05/22 0600 109.8 kg (242 lb 1 oz) 04/03/22 0500 111.2 kg (245 lb 2.4 oz) 04/02/22 0400 108.9 kg (240 lb 1.3 oz) Current weight: 105.1 kg Admit/Preop weight: 100.4 kg Pertinent physical exam findings prior to discharge: General: Sitting in chair. NAD. Pleasant. Neuro: Awake and alert. CN II-XII grossly intact, moves all extremities without focal deficit. Lungs: +bilateral breath sounds throughout, +diffuse wheeezing Heart: RRR, S1S2, no murmurs, SR on tele Abdomen: Soft, NTND Ext: WWP, 1-2+ LE edema Incisions: FINANCIAL SERVICES COUNSELOR CDI Important Studies and Lab Data: Lab Results Component Value Date WBC 18.1 (H) 04/02/2022 RBC 3.27 (L) 04/02/2022 HGB 8.6 (L) 04/02/2022 HCT 28.4 (L) 04/02/2022 PLATELET 180 04/02/2022 No results for input(s): INR in the last 168 hours. Lab Results Component Value Date NA 140 04/07/2022 K 3.9 04/08/2022 CL 102 04/07/2022 CO2 31 04/07/2022 BUN 29 (H) 04/07/2022 CREATININE 0.76 04/07/2022 Pending Studies and Lab Data: none Immunizations Given this Hospitalization: Immunization History Administered Date(s) Administered ??? Influenza Vaccine, Whole 06/25/2009 Smoking Status at Discharge: Social History Tobacco Use Smoking Status Former Smoker ??? Types: Cigarettes ??? Quit date: 03/23/2012 ??? Years since quittin.0 Smokeless Tobacco Never Used STS Data Medications: Pre-operative beta katlyn? Not given, hx bradycardia Discharge beta katlyn? Given Discharge lipid therapy? Given Discharge anti-platelet therapy? Given Discharge ARASH or ARB restarted? Contraindicated (hypotension) Discharge Medications: Your Medications New Medications Dose Details acetaminophen 500 mg Tab Commonly known as: Tylenol Take 2 tablets by mouth every 6 hours as needed for Pain. 1,000 mg Refills: 0 AMIOdarone 400 mg Tab Commonly known as: PACERONE Take 1 tablet by mouth daily for 30 days. Start taking on: April 09, 2022 400 mg Quantity: 30 tablet Refills: 0 amoxicillin 500 mg Cap Commonly known as: Amoxil Take 4 capsules by mouth as needed. Take 4 tablets, 2000mg, 1 hour before dental procedures. 2,000 mg Refills: 0 clopidogreL 75 mg Tab Commonly known as: Plavix Take 1 tablet by mouth daily for 360 days. Start taking on: April 09, 2022 75 mg Quantity: 90 tablet Refills: 3 dextromethorphan-guaiFENesin 10-100 mg/5 mL Syrp Commonly known as: Robitussin Take 5 mLs by mouth 3 times daily as needed for Cough. 5 mL Refills: 0 metoproloL tartrate 25 mg Tab Commonly known as: Lopressor Take 0.5 tablets by mouth 2 times daily. 12.5 mg Quantity: 30 tablet Refills: 3 Continued medications with new dosing Dose Details albuteroL 90 mcg/actuation Hfaa Inhale 2 puffs into the lungs every 4 hours as needed for Wheezing. Use with spacer What changed: Another medication with the same name was removed. Continue taking this medication, and follow the directions you see here. 2 puff Refills: 0 furosemide 20 mg Tab Commonly known as: Lasix Take 2 tablets by mouth 2 times daily for 14 days, THEN 1 tablet 2 times daily for 14 days. Start taking on: April 08, 2022 What changed: See the new instructions. Quantity: 84 tablet Refills: 0 Continued medications, unchanged Dose Details aspirin EC 81 mg Tbec Take 81 mg by mouth daily. 81 mg Refills: 0 citalopram 20 mg Tab Commonly known as: CeleXA Take 20 mg by mouth daily. 20 mg Refills: 0 diphenhydrAMINE 25 mg Cap Commonly known as: Benadryl Take 50 mg by mouth nightly as needed for Itching. 50 mg Refills: 0 EYE VITAMIN AND MINERALS ORAL Take 1 tablet by mouth 2 times daily. [facility] 1 tablet Refills: 0 metFORMIN 500 mg Tab Commonly known as: Glucophage Take 500 mg by mouth 2 times daily (with meals). 500 mg Refills: 0 multivitamin Tab Commonly known as: THERAGRAN Take 1 tablet by mouth daily. 1 tablet Refills: 0 nystatin 100,000 unit/gram Powd Commonly known as: MYCOSTATIN Apply 1 Application topically daily as needed. 1 Application Refills: 0 ProChamber Spcr Inhale 1 Package into the lungs every 6 hours as needed. Generic drug: inhalational spacing device 1 Package Refills: 0 simvastatin 20 mg Tab Commonly known as: Zocor Take 20 mg by mouth nightly. 20 mg Refills: 0 STOPPED Medications chlorhexidine 4 % Liqd Commonly known as: HIBICLENS losartan 100 mg Tab Commonly known as: COZAAR mupirocin 2 % Oint Commonly known as: Bactroban verapamiL SR 180 mg Tbsr Commonly known as: Calan-SR Instructions Given to Patient at Discharge: General Instructions None Cardiac Surgery Discharge Instructions: Call your doctor if: You have a fever of greater than 101 degrees, shaking chills, if you develop redness or drainage from your incision sites, or if you have questions. Please call your surgeon's office if you have any discharge or drainage from your chest incision. Your surgeon, Dr. Abdulkadir Raya and/or the Cardiac Surgery Physician Golf Superintendent Team may be reached at . Antibiotic prophylaxis: You will need to take antibiotics prior to many invasive tests and treatments, such as dental cleaning, which should be done every 6 months. Your primary care physician or your dentist can prescribe this medication. Please refer to the card with the [employer] Gu idelines for more information. You have been provided with a copy of this card. Please refer to the [employer] Guidelines for more information. Good dental care is important for your overall health. We recommend waiting ~3 months from your surgery date before returning to your dentist except in cases of emergency. Weight: Weigh yourself daily. Please call the office if you notice increasing weight, increasing fluid retention (edema), and/or SOB. Sternal (breast bone) precautions: No lifting greater than 7-10 pounds; no pushing or pulling with upper extremities; no excessive chest stretching for the first 4 weeks. Further instructions will be given to you at your follow-up appointment. Activity level: Walk three times a day. You should continue to increase your walks by 1-2 minutes each day. It is expected that you will be walking 20-30 minutes twice a day within 3-4 weeks after discharge to home. Rest between activities and after meals. Use common sense, don't exhaust yourself. Biking: You may use a stationary bicycle whenever you are comfortable enough to permit this. Tightenthe resistance slightly. Increase the amount of time on the bicycle as you would do for your walks, a minute or two each day. No biking outside until after your return appointment with Dr. Abdulkadir Raya. You may use a [place] [employer] or treadmill but avoid any pulling motion with the arms. Home activities: You may do light housework, e.g. dusting, setting the table, washing dishes, preparing a meal. Light carpentry and gardening are allowed. Avoid trying to open tight jars and stuck windows. No vacuuming, mopping, raking, shoveling, digging or hoeing until after your return visit with the surgeon. Sexual activity: You may engage in sexual activity when you feel ready. Use a position that protectsyour sternum (breastbone). Do not have your partner lie on your chest. Stairs: There are no restrictions on stair climbing. Use common sense. Don't exhaust yourself. Activities outside the home: After the first week home you may go out to dinner, visit friends, go to a movie, go to christianity, etc. Heavy activities: No hunting, skiing, jogging, snow shoveling, snowmobiling, lawn mowing, swimming, golf or tennis until after your return appointment with the surgeon. Do not ride motorcycles, BO.LT's tractors or horses. Avoid the use of a rifle with kickback against the shoulder for six months. Sleep: Try to establish normal sleep patterns. Long naps during the day may make it hard for you to sleep at night. Use the pain medication at bedtime for the first week at home. Smoking: It is very important that you not smoke after surgery. Smoking cessation education was provided as appropriate. If you need further assistance with this please call and you will be referred toa smoking cessation specialist. Medications: Take only those medications listed on your discharge information. Keep your pain under control so you can be active, do your coughing and breathing exercises and sleep. Contact us if the pain medication isn't working for you. Do not take any herbal preparations until after you return to see the surgeon. Special Physician Instructions: DO NOT USE ANY IBUPROFEN (ADVIL, MOTRIN, ETC) OR OTHER NSAIDS (NONSTEROIDAL ANTI-INFLAMMATORY DRUGS) FOR A TOTAL OF 10 DAYS AFTER SURGERY. PLEASE CONTACT THE CARDIOTHORACIC SURGERY OFFICE IF YOU HAVE QUESTIONS ABOUT WHICH DRUGS YOU SHOULD NOT USE. . Diet: You should follow a regular diet until your appetite returns to normal. At that point in time you should resume a low fat, low cholesterol, [employer] Diet/Diabetic diet. Driving: No driving until cleared by your surgeon. Avoid long trips if possible. If you must go on along trip, stop the car and walk every hour. Shower/Bath: You may shower daily. No baths, soaking, or swimming until cleared by your surgeon. Wound care: Wash your incisions daily with soap and rinse well, pat dry. Assess for any signs of infection such as increased redness, pain, warmth or drainage. Please call your surgeon's office if you have any discharge or drainage from your chest incision. If there is a lot of swelling, apply arash wraps during the day and remove at bedtime. Elevate your legs when you are sitting. MEDICATION REFILL REQUESTS - Please note that Cardiac Surgery will not maintain regular refill requests for your medications as these can change during and after your recovery while being managed by your PCP and/or Parcel Post Weigher. For future medication refills, please refer to your PCP and/or Parcel Post Weigher after your discharge from our service. Thank you REMOVE CHEST TUBE SUTURES ON OR AFTER 04/09/22 Home oxygen therapy: N/A Follow up appointments: ??? You should follow up with your PCP, Harshal Godfrey MD, in 1-2 weeks. ??? You have an appointment with your Parcel Post Weigher, Ofelia Rubalcava MD, April 29 at 10:20am. ??? You have an appointment with your Cardiac Surgeon, Dr. Abdulkadir Raya, May 08 at 3:00pm with a chest x-ray, EKG, and Echo before your appointment. ??? Patient to follow up with Pulmonology, their office to arrange. Cardiac Rehabilitation: Marcelle Albarran was seen today regarding participation in the outpatient Phase [address] [facility]. The patient agrees to a referral to this program. The referral will be sent at discharge and the patient should be contacted by the Program within 1- 2 weeks from discharge. Future Appointments and Orders Future Appointments and Orders Future Appointments Provider Department Dept Phone 04/29/2022 10:20 AM Ofelia Rubalcava MD Cardiology at [place] Arrive at: [facility] [address] [phone] 05/08/2022 12:30 PM [facility] DX ROOM 1 XRay at [facility] Arrive at: [facility] [phone] Please go to [facility] ([place] Location). 05/08/2022 1:30 PM ECHO REGULAR Non-Invasive Cardiology Lab [facility] Arrive at: [facility] [phone] 05/08/2022 3:00 PM Abdulkadir Raya MD Cardiac Surgery at [facility] Arrive at: [facility] [phone] Future Orders Complete By Expires Referral to Cardiac Rehab [BXA186 Custom] As directed Process Instructions: If no progress note charted, please enter Clinical details in comments. Scheduling Instructions: Questions: My question or request is: s/p AVR/CABG- cardiac rehab at [facility] Referral to Home Health [REF34 Custom] As directed Process Instructions: If no progress note charted, please enter Clinical details in comments. Scheduling Instructions: Comments: Please evaluate Marcelle Albarran for admission to Home Health. [address] [facility] [address] (home) Date of : 1950 Outpatient Person to contact: Patient Patient is aware of referral: yes Referring Provider Call-back Physician to follow (the person listed here will be responsible for signing ongoing orders): PCP Requested Start of Care Date: Within 2-3 days Special Instructions: DOCUMENTATION FOR VNA SERVICES (INCLUDING THOSE PATIENTS WITH MEDICARE COVERAGE REQUIRING HOME VNA SERVICES AND/OR HOSPICE SERVICES) PATIENT'S LOCATION: Marcelle Albarran [address] [facility] [id number] (home) Telephone Information: Production Helper's Name: self In discussion with the attending physician, it is certified that this patient is under their care and that they, or a Nurse Practitioner, or Physician Golf Superintendent who is working directly with them, had aface to face encounter that meets the physician face to face encounter requirements with this patient on 04/08/22 The encounter with the patient was in whole, or in part, for the following medical condition, which is the primary reason for home health care services: s/p aortic valve replacement and CABGx2 In discussion with the provider, it is certified that, based on their findings, the following services are medically necessary for home health services. To provide the following care/treatments with the clinical findings supporting the need for servicesas follows: HOME HEALTH AGENCY: [facility]. PHONE: [phone] FAX: [phone] RN orders: Cardiopulmonary assessment, incisional assessment, assess vital signs, assessment of rehab progress, medication management and effectiveness, home safety evaluation. PT ORDERS: Continue rehab for endurance, gait stability and strength with mobility and transfers. Home safety evaluation. Home exercise program if appropriate. Start of Care Date:24-48 hours following discharge. SPECIAL INSTRUCTIONS: For any follow up questions, needs, or issues please call the Cardiology Office at [phone] FOR MEDICARE ONLY: (please delete this section if not Medicare) In discussion with the attending physician, it is certified that the clinical findings support that this patient is homebound i.e. absences from home require considerable and taxing effort due to: Restricted mobility and poor activity tolerance due to recent cardiac surgery. Patient requires assistance of another person to leave the home. Home Health agencies which cover the area of patient's residence have been reviewed, either verballyor in writing, and patient/family have chosen the agency as noted. I attest that I or another qualified licensed provider saw Marcelle Albarran 90 days prior to or 30 days post admission and this face to face encounter meets the necessary Home Health requirements. The face to face encounter occurred on 04/08/22. Questions: Disciplines Requested: Nursing Physical Therapy Walker rolling [EQ134 Custom] As directed Process Instructions: Scheduling Instructions: Comments: Marcelle Albarran [address] [facility] [id number] (home) Telephone Information: Diagnosis: deconditioning with Unsteady gait Significant weakness, ataxia or gait abnormality Patient's: Hgt: Ht Readings from Last 1 Encounters: 03/30/22 : 147.3 cm (4' 9.99) ? Wgt: Wt Readings from Last 1 Encounters: 04/08/22 : 105.1 kg (231 lb 11.3 oz) VENDOR: [facility] Loc[facility] @ [place], [place] Ordering: Front wheel walker Deliver to pt's hospital room #: CV30A Questions: Vendor Name/Contact information: [facility] @ [place], [place] Arrangements for VNA/home care: As above. VN RN OR PCP TO PLEASE REMOVE CHEST TUBE SUTURES ON OR AFTER 04/09/22 Signed: MAGDIEL PEARSON [facility] Section of Cardiac Surgery [facility] [phone] FAX [phone] Date: 04/08/2022 CC: MD Elver Lo Alexander, MD [facility] [place] [address] documented in this encounter Discharge Instructions Patient InstructionsHolt, MAGDIEL Orr - 04/08/2022 9:53 AM EDT Cardiac Surgery Discharge Instructions: Call your doctor if: You have a fever of greater than 101 degrees, shaking chills, if you develop redness or drainage from your incision sites, or if you have questions. Please call your surgeon's office if you have any discharge or drainage from your chest incision. Your surgeon, Dr. Abdulkadir Raya and/or the Cardiac Surgery Physician Golf Superintendent Team may be reached at . Antibiotic prophylaxis: You will need to take antibiotics prior to many invasive tests and treatments, such as dental cleaning, which should be done every 6 months. Your primary care physician or your dentist can prescribe this medication. Please refer to the card with the [employer] Gu idelines for more information. You have been provided with a copy of this card. Please refer to the [employer] Guidelines for more information. Good dental care is important for your overall health. We recommend waiting ~3 months from your surgery date before returning to your dentist except in cases of emergency. Weight: Weigh yourself daily. Please call the office if you notice increasing weight, increasing fluid retention (edema), and/or SOB. Sternal (breast bone) precautions: No lifting greater than 7-10 pounds; no pushing or pulling with upper extremities; no excessive chest stretching for the first 4 weeks. Further instructions will be given to you at your follow-up appointment. Activity level: Walk three times a day. You should continue to increase your walks by 1-2 minutes each day. It is expected that you will be walking 20-30 minutes twice a day within 3-4 weeks after discharge to home. Rest between activities and after meals. Use common sense, don't exhaust yourself. Biking: You may use a stationary bicycle whenever you are comfortable enough to permit this. Tightenthe resistance slightly. Increase the amount of time on the bicycle as you would do for your walks, a minute or two each day. No biking outside until after your return appointment with Dr. Abdulkadir Raya. You may use a [place] or treadmill but avoid any pulling motion with the arms. Home activities: You may do light housework, e.g. dusting, setting the table, washing dishes, preparing a meal. Light carpentry and gardening are allowed. Avoid trying to open tight jars and stuck windows. No vacuuming, mopping, raking, shoveling, digging or hoeing until after your return visit with the surgeon. Sexual activity: You may engage in sexual activity when you feel ready. Use a position that protectsyour sternum (breastbone). Do not have your partner lie on your chest. Stairs: There are no restrictions on stair climbing. Use common sense. Don't exhaust yourself. Activities outside the home: After the first week home you may go out to dinner, visit friends, go to a movie, go to christianity, etc. Heavy activities: No hunting, skiing, jogging, snow shoveling, snowmobiling, lawn mowing, swimming, golf or tennis until after your return appointment with the surgeon. Do not ride motorcycles, BO.LT's tractors or horses. Avoid the use of a rifle with kickback against the shoulder for six months. Sleep: Try to establish normal sleep patterns. Long naps during the day may make it hard for you to sleep at night. Use the pain medication at bedtime for the first week at home. Smoking: It is very important that you not smoke after surgery. Smoking cessation education was provided as appropriate. If you need further assistance with this please call and you will be referred toa smoking cessation specialist. Medications: Take only those medications listed on your discharge information. Keep your pain under control so you can be active, do your coughing and breathing exercises and sleep. Contact us if the pain medication isn't working for you. Do not take any herbal preparations until after you return to see the surgeon. Special Physician Instructions: DO NOT USE ANY IBUPROFEN (ADVIL, MOTRIN, ETC) OR OTHER NSAIDS (NONSTEROIDAL ANTI-INFLAMMATORY DRUGS) FOR A TOTAL OF 10 DAYS AFTER SURGERY. PLEASE CONTACT THE CARDIOTHORACIC SURGERY OFFICE IF YOU HAVE QUESTIONS ABOUT WHICH DRUGS YOU SHOULD NOT USE. . Diet: You should follow a regular diet until your appetite returns to normal. At that point in time you should resume a low fat, low cholesterol, [employer] Diet/Diabetic diet. Driving: No driving until cleared by your surgeon. Avoid long trips if possible. If you must go on along trip, stop the car and walk every hour. Shower/Bath: You may shower daily. No baths, soaking, or swimming until cleared by your surgeon. Wound care: Wash your incisions daily with soap and rinse well, pat dry. Assess for any signs of infection such as increased redness, pain, warmth or drainage. Please call your surgeon's office if you have any discharge or drainage from your chest incision. If there is a lot of swelling, apply arash wraps during the day and remove at bedtime. Elevate your legs when you are sitting. MEDICATION REFILL REQUESTS - Please note that Cardiac Surgery will not maintain regular refill requests for your medications as these can change during and after your recovery while being managed by your PCP and/or Parcel Post Weigher. For future medication refills, please refer to your PCP and/or Parcel Post Weigher after your discharge from our service. Thank you REMOVE CHEST TUBE SUTURES ON OR AFTER 04/09/22 Home oxygen therapy: N/A Follow up appointments: You should follow up with your PCP, Harshal Godfrey MD, in 1-2 weeks. You have an appointment with your Parcel Post Weigher, Ofelia Rubalcava MD, April 29 at 10:20am. You have an appointment with your Cardiac Surgeon, Dr. Abdulkadir Raya, May 08 at 3:00pm witha chest x-ray, EKG, and Echo before your appointment. Patient to follow up with Pulmonology, their office to arrange. Cardiac Rehabilitation: A referral to a cardiac rehab program in your area will be placed on your behalf. Your participation is encouraged. You should expect a phone call in 1-2 weeks regarding this. documented in this encounter Medications at Time of Discharge Medication Sig Dispensed Refills Start Date End Date acetaminophen (Tylenol) Take 2 tablets by 0 [...] Take 81 mg by mouth 0 daily. AMIOdarone (PACERONE) 400 Take 1 tablet by 30 tablet 0 07/0 04/202205/09/2022 mg Tablet mouth daily for 30 days. clopidogreL (Plavix) 75 Take 1 tablet by 90 tablet 3 202104/10/2022 mg Tablet mouth daily for 360 days. furosemide (Lasix) 20 mg Take 2 tablets by 84 tablet 0 07/0 03/202204/10/2022 Tablet mouth 2 times daily for 14 days, THEN 1 tablet 2 times daily for 14 days. dextromethorphan-guaiFENe Take 5 mLs by mouth 0 0 04/08/2022 07/10/2022 sin (Robitussin) 10-100 3 times daily as mg/5 mL Syrup needed for Cough. metoproloL tartrate Take 0.5 tablets by 30 tablet 3 022 04/10/2022 (Lopressor) 25 mg Tablet mouth 2 times daily. ProChamber Spacer Inhale 1 Package 0 12/22/2021 1 into the lungs every 6 hours as needed. multivitamin (THERAGRAN) Take 1 tablet by 0 07/10/2022 Tablet mouth daily. albuteroL 90 Inhale 2 puffs into 0 04/2022 mcg/actuation HFA Aerosol the lungs every 4 Inhaler hours as needed for Wheezing. Use with spacer documented as of this encounter Progress Notes Russell Santos RN - 04/08/2022 11:43 AM EDT CM calls patient and is given the okay to place referral to below. The Patient has been provided a list of Home Health Agencies/DME vendors which serve their preferredgeographic area. A letter describing our affiliations was reviewed with them and they were educated about their right to choose where referrals are placed. CM Provided patient with [facility] Star Quality Rating for Home care hand out. Patient requests referral to : [facility] at [address] [address] Billing Inquiries: Expected date of discharge: 04/08 Referral routed to the Carbon Paper Coating Machine Setter for matching with agency/vendor and to provide any required information. Konstantin Amado PA - 04/08/2022 9:53 AM EDT Cardiac Surgery Progress Note Marcelle Albarran is a 72 y.o. female who is 9 Days Post-Op AVR, asc patch repair, CABGx2. PMH of , CAD, bradycardia, DM, HTN, lung/mediastinal/liver nodules, bowel obstruction s/p GI surgery. 24h Events: Started low dose beta blockade, BP tolerated Carreon removed Continues to respond well to iv lasix Floor status Cleared for home with PT DEV overnight S: Feels well. Pain controlled on just tylenol. Ambulated several times. Did stairs. Wants to go home. +mild NARVAEZ but recovers quickly. Tolerating diet. +BMs. O: Temp: [36.3 ??C (97.3 ??F)-37.1 ??C (98.8 ??F)] Heart Rate: [77-97] Resp: [15-24] BP: (99-114)/(48-66) SpO2: [91 %-96 %] Heart Rate from SpO2: -- Drips: none 04/07 701 - 04/08 07 In: 1850 [P.O.:1840; I.V.:10] Out: 1994 [Urine:1994] Admit weight: 100.4 kg Current weight: Weight: 105.1 kg (231 lb 11.3 oz) Physical Exam: General: Sitting in chair. NAD. Pleasant. Neuro: Awake and alert. CN II-XII grossly intact, moves all extremities without focal deficit. Lungs: +bilateral breath sounds throughout, +diffuse wheeezing Heart: RRR, S1S2, no murmurs, SR on tele Abdomen: Soft, NTND Ext: WWP, 1-2+ LE edema Incisions: FINANCIAL SERVICES COUNSELOR CDI T/L/D/W: PIV Assessment/Plan: 72 y.o. female 9 Days Post-Op AVR, asc patch repair, CABGx2. Acute postop cardiogenic shock requiring dobutamine, now off. Acute HFpEF. Cardiorenal Syndrome with VAISHNAVI, resolved - no chronic renal injury. Left pneumothorax resolved with pigtail. Right pleural effusion, s/p drainage. Post- op atrial fibrillation. Acute post-op pulmonary insufficiency secondary to splinting, atelectasis, and effusions. Consulted Pulmonology regarding pulmonary nodules and enlarged paratracheal lymph node, they will arrange early outpatient follow up Start plavix for bypasses, continue x1 year D/C SQH Ready for discharge home today Continue diuretic taper on discharge Neuro: tylenol, lido patches, oxy prn, celexa CV: metop 12.5, amio 400 daily, simvastatin Pulm: on room air, pulm toilet, cough meds, duoneb prn GI: carb control diet, rbo's, protonix : voiding Renal: k prn, lasix 40 bid Heme: ASA 81, Plavix 75 ID: miconazole powder to groins Endo: SSI, NIDDM2 Dispo: Floor status, full code Discussed with attending surgeon on rounds this morning. MAGDIEL PEARSON 04/08/2022 Between the hours of 1800 - 0600 and on the weekends please page [phone]. Russell Hylton MD - 04/08/2022 8:33 AM EDT Cardiovascular Critical Care Attending Note Marcelle Albarran 1950 Age: 72 y.o. PCP: Harshal Godfrey MD Date of Service: 04/08/2022 Date of Admission: 03/30/2022 Length of Stay Hospital Day 9 days Patient ID: Marcelle Albarran is a 72 y.o. female with a history of severe , ASCVD, HTN, DM2, prior bowel obstructions requiring surgery admitted for AVR/2vCABG (03/29, Dr. Raya) with intra-op coursecomplicated by aortic tear requiring patch repair and post-op course complicated by cardiogenic shock with VAISHNAVI and afib/RVR. The patient was seen and examined on critical care rounds. Marcelle Albarran is a 72 y.o. female with the following active issues: Active Hospital Problems Diagnosis ??? S/P AVR (aortic valve replacement) and aortoplasty and CABG ??? Mediastinal lymphadenopathy, abnormal findings right and left liver lobes, numerous very small pulmonary nodules ??? Class 3 severe obesity in adult ??? Pulmonary hypertension ??? CAD (coronary artery disease) ??? Hypertension ??? Diabetes mellitus Resolved Hospital Problems No resolved problems to display. INTERVAL HISTORY: ??? Excellent progress on CT surgery pathway. ??? Off Dobutmine and tolerating. MEDICATIONS: Scheduled Meds: ??? aspirin 81 mg Oral Daily ??? clopidogreL 75 mg Oral Daily ??? metoprolol tartrate 12.5 mg Oral 2 times per day ??? sodium chloride 0.9 % (flush) 5 mL Intravenous Q8H ??? insulin lispro 1-4 Units Subcutaneous TID AC ??? AMIOdarone 400 mg Oral Daily ??? guaiFENesin ER 600 mg Oral Q12H ??? benzonatate 100 mg Oral TID ??? furosemide 40 mg Intravenous BID ??? lidocaine 2 patch Transdermal Q24H And ??? lidocaine 2 patch Transdermal Q24H ??? citalopram 20 mg Oral Daily ??? miconazole Topical (Top) BID ??? simvastatin 20 mg Oral Nightly ??? pantoprazole EC 40 mg Oral Daily ??? senna-docusate 2 tablet Oral Daily ??? magnesium hydroxide 10 mL Oral Daily ??? acetaminophen 1,000 mg Oral Q6H JUDY Continuous Infusions: EXAM: Last value Range last 24 hrs Temperature Temp: 36.8 ??C (98.2 ??F) Temp: [36.3 ??C (97.3 ??F)-37.1 ??C (98.8 ??F)] Heart Rate Heart Rate: 97 Heart Rate: [77-97] Blood Pressure BP: 108/62 BP: (102-114)/(48-66) Respiratory Rate Resp: 24 Resp: [15-26] SpO2 SpO2: 94 % SpO2: [91 %-96 %] Art BP BP (Arterial Line): 116/53 BP (Arterial Line): -- Weights: Patient Vitals for the past 168 hrs: Weight 04/08/22 0606 105.1 kg (231 lb 11.3 oz) 04/07/22 0604 105.7 kg (233 lb 0.4 oz) 04/06/22 0650 107.2 kg (236 lb 5.3 oz) 04/05/22 0600 109.8 kg (242 lb 1 oz) 04/03/22 0500 111.2 kg (245 lb 2.4 oz) 04/02/22 0400 108.9 kg (240 lb 1.3 oz) Gen- No distress HEENT- PERRL CV- Regular rhythm , normal rate Pulm- Clear Abd- Soft, benign Ext- Mild edema, warm Neuro- Alert, oriented, appropriate. Skin- Warm, non-diaphoretic. PERTINENT DIAGNOSTICS: Labs and imaging reviewed. Recent Results (from the past 24 hour(s)) POCT Glucose Result Value Ref Range POC Glucose 145 65 - 199 mg/dL POCT Glucose Result Value Ref Range POC Glucose 183 65 - 199 mg/dL POCT Glucose Result Value Ref Range POC Glucose 126 65 - 199 mg/dL Potassium Result Value Ref Range Potassium 3.9 3.5 - 5.0 mmol/L POCT Glucose Result Value Ref Range POC Glucose 186 65 - 199 mg/dL ASSESSMENT, MANAGEMENT, and DECISION MAKINyoF w/ complex medical history admitted for planned AVR/2vCABG for severe and ASCVD who had a complicated intra-op and post-op course leading to prolonged ICU stay. Good progress. With regards to unexpected findings on preoperative Chest CT, we are consulting Pulmonary for further evaluation of enlarged mediastinal lymph nodes, pulmonary nodules, and liver findings as reported on 03/23/2022. Dr Raya is in agreement with this plan. IS THE PATIENT CRITICALLY ILL? Is there a high potential of sudden, clinically significant, or life threatening deterioration? No Is there a need for direct personal assessment and management to treat/prevent multiple vital organ failure/deterioration? No If this patient is not critically ill, the reason for continued hospitalization is Medical optimization of cardiac condition following cardiogenic shock in the setting of surgical aortic valve replacement and CABG, including diuresis, medication titration, monitoring of rhythm, perfusion state and renal function. RUSSELL HYLTON MD 04/08/2022 Radha Garcia, PT - 04/07/2022 2:01 PM EDT Physical Therapy Note Treatment # 3 Patient profile: Marcelle Albarran is a 72 y.o. female who is 8 Days Post-Op AVR, asc patch repair, CABGx2. PMH of , CAD, bradycardia, DM, HTN, lung/mediastinal/liver nodules, bowel obstruction s/p GI surgery. ?? 24h Events: Transitioned to PO amio 400 daily, remains in NSR Continues net negative with diuretic, Cr stable of dobutamine Ambulating around room ANKUR Social History: Pt lives with her dtr. Another dtr lives next door. Home is 1 living with 4-5 steps to enter home. 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 Pt does not use a device at baseline. She drives. She is indep with all ADL's. Precautions/Special Considerations: STERNAL PRECAUTIONS (No pushing, pulling or lifting >8-10lbs) Mobility and Positioning Recommendations: ?? Ambulate 3-4x/daily with nursing with rolling walker and supervision ?? OOB in chair for all meals Subjective: I got my catheter out today. Objective: Pt seen in the [facility] this AM. In chair at start and end of session. Dtr's and grandson present. Vital Signs: stable on RA; BP 114/70 Incentive Spirometer: 1000 mL with cues Pain: 0/10 Bed Mobility: Supine ->Sit: not assessed, up in chair. Pt will sleep in recliner at home Transfers: Sit to Stand: supervision to rolling walker Stand to Sit: supervision Chair to commode: supervision with walker Able to perform hygiene after using commode independently. Gait: Ambulated 80 ft with rolling walker; seated rest. Stairs: Up and down step 5 times with rail and close supervision Assessment: Marcelle is making gains with mobility. She ambulated in the hallway and performed stairs today. She is maintaining sternal precautions with mobility. She will benefit from frequent walks with nursing. From a PT standpoint, she is safe for home d/c once she is medically ready. Plan: monitor until d/c. Discharge Recommendations: Home with dtr and support from other dtr who lives next door. Equipment needs for home at d/c: rolling walker Goals to be achieved by 04/06/22-met with supervision 1. Pt will perform supine to sit transfers with supervision to/from flat bed, log roll technique with assist of family. 2. Pt will perform sit><stand transfers with supervision with least restrictive device 3. Pt will perform bed to chair transfers with supervision with least restrictive device 4. Pt will ambulate at least 160' with supervision with least restrictive device.( 80 ft today) 5. Pt will perform 5 stairs with rail, LRAD and supervision. RADHA GARCIA, PT Pager: [phone] Physical Therapy Inpatient Rehabilitation Department Time IN / OUT: [id number] Total time: 28 mins (tef, armando) Mike Rankin DT - 04/07/2022 11:56 AM EDT Nutrition Services Note - Low Nutrition Acuity Marcelle Albarran is a 72 y.o. female Reason for intervention: hospital day 9 Nutrition Plan: Continue current diet. Provided snack lists. Monitor weight.- pt on Lasix Encourage good oral intake. Support and encouragement provided. Pt screened for hospital length of stay. Pt was eating well post op 75-100% food intake. Pt shared some food preferences, She likes meatloaf, mash potatoes, and gravy. She also likes banana and rice crispy. Pt tolerated fluid intake as water and carbonated drink aka vasiliy guera. Pt dislike coffee. Pt tolerating carb counting diet. Pt stated it went well. Pt has no questions regarding to her diet at this moment. Active Orders Diet Carb Control diet 60/60/75 CHO counting level 2 Frequency: Effective Now Number of Occurrences: Until Specified Admit Weight: 100.4 kg Estimated body mass index is 48.72 kg/m?? as calculated from the following: Height as of this encounter: 147.3 cm (4' 9.99). Weight as of this encounter: 105.7 kg (233 lb 0.4 oz). Wt Readings from Last 5 Encounters: 04/07/22 105.7 kg (233 lb 0.4 oz) 03/23/22 103 kg (227 lb 1.6 oz) 03/20/22 102.5 kg (226 lb) 02/18/22 102.9 kg (226 lb 12.8 oz) Weight loss: none, pt on lasix, unsure of dry weight Appetite: Excellent (75%-100%) Food allergies:no known food allergies Chewing/Swallowing difficulty: none Nausea/Vomiting: no nausea and no vomiting Last Bowel Movement: 04/07/22 Patient education / questions: all nutrition related questions answered at this time Nutrition services to follow weekly through hospital course unless consulted in the interim. REDD Alexis EXT [id number] [phone] Rico Zamora PA - 04/07/2022 8:23 AM EDT Cardiac Surgery Progress Note Marcelle Albarran is a 72 y.o. female who is 8 Days Post-Op AVR, asc patch repair, CABGx2. PMH of , CAD, bradycardia, DM, HTN, lung/mediastinal/liver nodules, bowel obstruction s/p GI surgery. 24h Events: Transitioned to PO amio 400 daily, remains in NSR Continues net negative with diuretic, Cr stable of dobutamine Ambulating around room ANKUR S: Feels like she is getting better, doesn't want to go to rehab. Pain controlled. Tolerating PO diet, +BM. Bed to chair but yet to ambulate out of the room. O: Temp: [37 ??C (98.6 ??F)-37.5 ??C (99.5 ??F)] Heart Rate: [81-101] Resp: [19-27] BP: (80-147)/(49-93) SpO2: [90 %-97 %] Heart Rate from SpO2: -- Drips: none 04/06 0701 - 04/07 0700 In: 560.1 [P.O.:480; I.V.:80.1] Out: 1755 [Urine:1755] Admit weight: 100.4 kg Current weight: Weight: 105.7 kg (233 lb 0.4 oz) Physical Exam: General: Sitting in chair. NAD. Pleasant. Neuro: Awake and alert. No focal deficit. 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 female 8 Days Post-Op AVR, asc patch repair, CABGx2. Acute postop cardiogenic shock requiring dobutamine, now off. Post-op VAISHNAVI with Hyperkalemia, resolved. Left pneumothorax resolved with pigtail. Right pleural effusion, s/p drainage. Post-op atrial fibrillation. Acute post-oppulmonary insufficiency secondary to splinting, atelectasis, and effusions. Transition to PO amio 400 daily Start metop 12.5 Cont diuresis 40 IV D/c carreon Transfer GI consult for nodules on preop ct, closer to d/c Neuro: tylenol, lido patches, oxy prn, celexa CV: metop 12.5, amio 400 daily, simvastatin Pulm: nc wean as able, pulm toilet, cough meds, duoneb prn GI: carb control diet, rbo's, protonix, +BM : d/c carreon Renal: k prn, lasix 40 bid Heme: ASA 325, sq hep until more mobile ID: miconazole powder to groins Endo: SSI, [id number] Dispo: CVCC, full code, transfer Discussed with attending surgeon on rounds this morning. MAGDIEL Marcos 04/07/2022 Between the hours of 1800 - 0600 and on the weekends please page [phone]. Mar Paul MD - 04/06/2022 3:08 PM EDT Cardiovascular Critical Care Attending Note Marcelle Albarran 1950 Age: 72 y.o. PCP: Harshal Godfrey MD Date of Service: 04/06/2022 Date of Admission: 03/30/2022 Length of Stay Hospital Day 7 days Patient ID: Marcelle Albarran is a 72 y.o. female with a history of severe , ASCVD, HTN, DM2, prior bowel obstructions requiring surgery admitted for AVR/2vCABG (03/29, Dr. Raya) with intra-op coursecomplicated by aortic tear requiring patch repair and post-op course complicated by cardiogenic shock with VAISHNAVI and afib/RVR. The patient was seen and examined on critical care rounds. Marcelle Albarran is a 72 y.o. female with the following active issues: Active Hospital Problems Diagnosis ??? S/P AVR (aortic valve replacement) and aortoplasty and CABG ??? Mediastinal lymphadenopathy, abnormal findings right and left liver lobes, numerous very small pulmonary nodules ??? Class 3 severe obesity in adult ??? Pulmonary hypertension ??? CAD (coronary artery disease) ??? Hypertension ??? Diabetes mellitus Resolved Hospital Problems No resolved problems to display. INTERVAL HISTORY: ??? Remained in NSR after spontaneous conversion yesterday ??? Inotropic support weaned off yesterday with stable hemodynamics ??? Responded to lasix without inodilator support ??? Feels well today. Tired from recent events but no specific symptomatic complaints MEDICATIONS: Scheduled Meds: ??? AMIOdarone 400 mg Oral Daily ??? guaiFENesin ER 600 mg Oral Q12H ??? benzonatate 100 mg Oral TID ??? furosemide 40 mg Intravenous BID ??? aspirin EC 325 mg Oral Daily ??? heparin (porcine) 5,000 Units Subcutaneous 2 times per day ??? insulin lispro 1-4 Units Subcutaneous TID AC ??? lidocaine 2 patch Transdermal Q24H And ??? lidocaine 2 patch Transdermal Q24H ??? citalopram 20 mg Oral Daily ??? miconazole Topical (Top) BID ??? simvastatin 20 mg Oral Nightly ??? pantoprazole EC 40 mg Oral Daily ??? senna-docusate 2 tablet Oral Daily ??? magnesium hydroxide 10 mL Oral Daily ??? acetaminophen 1,000 mg Oral Q6H JUDY Continuous Infusions: EXAM: Last value Range last 24 hrs Temperature Temp: 37 ??C (98.6 ??F) Temp: [36.6 ??C (97.9 ??F)-37.5 ??C (99.5 ??F)] Heart Rate Heart Rate: 91 Heart Rate: [80-101] Blood Pressure BP: 95/65 BP: (80-130)/(50-79) Respiratory Rate Resp: 25 Resp: [17-25] SpO2 SpO2: 93 % SpO2: [91 %-99 %] Art BP BP (Arterial Line): 116/53 BP (Arterial Line): -- Weights: Patient Vitals for the past 168 hrs: Weight 04/06/22 0650 107.2 kg (236 lb 5.3 oz) 04/05/22 0600 109.8 kg (242 lb 1 oz) 04/03/22 0500 111.2 kg (245 lb 2.4 oz) 04/02/22 0400 108.9 kg (240 lb 1.3 oz) 04/01/22 0600 110.4 kg (243 lb 6.2 oz) 03/31/22 0600 108 kg (238 lb 1.6 oz) Gen- Pleasant elderly lady, talkative, sitting in bedside chair appearing comfortable HEENT- NC/AT, sclera anicteric, EOMI CV- Regular rhythm , normal rate Pulm- Respirations unlabored, symmetric expansion Abd- Obese, soft, benign Ext- Mild edema, warm Neuro- Alert, oriented, appropriate. Face symmetric. Moving all extremities spontaneously Psych- Mood good, affect congruent. Skin- Warm, non-diaphoretic. Sternal incision appears to be healing appropriately Lines- PIVs PERTINENT DIAGNOSTICS: Labs and imaging reviewed. Recent Labs 04/02/22 0035 03/31/22 0215 03/30/22201403/30/22 1450 WBC 18.1* 17.0* -- 21.6* HGB 8.6* 8.7* 8.5* 8.0* PLATELET 180 192 -- 202 202 Recent Labs 04/06/22 1001 04/06/22 0233 04/05/22 0210 04/04/22 0800 NA -- 142 138 139 K 4.2 3.8 4.0 4.6 CL -- 103 102 104 CO2 -- 31 28 27 BUN -- 30* 35* 40* CREATININE -- 0.80 0.71 0.78 GLUCOSE -- 128 137 148 Recent Labs 03/23/22 1157 BILITOT 0.3 BILIDIR 0.1 ALKPHOS 59 ALT 16 AST 20 Recent Labs 03/30/22 1450 03/23/22 1157 PT 22.2* 13.6* PTT 34 -- INR 1.9 1.2 ASSESSMENT, MANAGEMENT, and DECISION MAKINyoF w/ complex medical history admitted for planned AVR/2vCABG for severe and ASCVD who had a complicated intra-op and post-op course leading to prolonged ICU stay. Has been weaned off hemodynamicsupport (last dose dobutamine at 0800 yesterday) and appears to be maintaining, although she was a subtle decline to low output state previously. Will plan to de-escalate lines but continue close monitoring given prior course. Neuro- APAP/Lidocaine patch Cardiovascular- Continue to monitor for signs of poor perfusion/low output clinically. Okay to DC PAC. Continues ASA, statin. Hold on metoprolol. Pulmonary- Supplemental O2 prn. Pulm hygiene. Cough suppressants prn. FEK- Monitor UOP, creatinine, electrolytes. Continue diuresis. GI- Okay for diet. Continue PPI. RBOS. ID- No acute issues Heme- SQH ppx Endo- BAsal+bolus insulin Psych- Education/counseling provided. Continue home citalopram IS THE PATIENT CRITICALLY ILL? Is there a high potential of sudden, clinically significant, or life threatening deterioration? No Is there a need for direct personal assessment and management to treat/prevent multiple vital organ failure/deterioration? No If this patient is not critically ill, the reason for continued hospitalization is Medical optimization of cardiac condition following cardiogenic shock in the setting of surgical aortic valve replacement and CABG, including diuresis, medication titration, monitoring of rhythm, perfusion state and renal function. Mar Paul MD 04/06/2022 Danuta Diaz PA - 04/06/2022 9:02 AM EDT Cardiac Surgery Progress Note Marcelle Albarran is a 72 y.o. female who is 7 Days Post-Op AVR, asc patch repair, CABGx2. PMH of , CAD, bradycardia, DM, HTN, lung/mediastinal/liver nodules, bowel obstruction s/p GI surgery. 24h Events: Dobutamine weaned off, CI 2.8 Remains NSR Cr stable - ongoing diuresis 1L NC Right PT removed S: Complaints of fatigue but feels like she is getting better. Pain controlled. Tolerating PO diet, +BM. Bed to chair but yet to ambulate out of the room. O: Temp: [36.6 ??C (97.9 ??F)-37.5 ??C (99.5 ??F)] Heart Rate: [80-97] Resp: [13-26] BP: (98-130)/(53-79) SpO2: [89 %-99 %] Heart Rate from SpO2: -- Drips: Amio 0.5 04/05 0701 - 04/06 0700 In: 976.6 [P.O.:290; I.V.:670.6] Out: 2480 [Urine:2400] Admit weight: 100.4 kg Current weight: Weight: 107.2 kg (236 lb 5.3 oz) Physical Exam: General: Sitting in chair. NAD. Pleasant. Neuro: Awake and alert. No focal deficit. Lungs: Diminished bases, non-labored, 1L NC Heart: RRR, no murmurs/gallop/rub, SR on tele Abdomen: Soft, NTND, normoactive bowel sounds Ext: WWP, 1+ LE edema Incisions: JACKLYN CDI T/L/D/W: Lauri HAMLIN, GALINA Assessment/Plan: 72 y.o. female 7 Days Post-Op AVR, asc patch repair, CABGx2. Acute low output cardiac failure. Cardiorenal syndrome. Post-op VAISHNAVI with Hyperkalemia, resolved. Left pneumothorax resolvedwith pigtail. Right pleural effusion, s/p drainage. Post-op atrial fibrillation. Acute post-op pulmonary insufficiency secondary to splinting, atelectasis, and effusions. Transition to PO amio 400 daily Hold off on BB today given recent dobutamine Cont diuresis Close monitor UOP BMP in am Remove IJ Ambulate GI consult for nodules on preop ct, closer to d/c Keep in CVCC for close monitoring today Neuro: tylenol, lido patches, oxy prn, celexa CV: amio 400 daily, simvastatin Pulm: nc wean as able, pulm toilet, cough meds, duoneb prn GI: carb control diet, rbo's, protonix, +BM : keep carreon for close I&O monitoring Renal: k prn, lasix 40 bid Heme: ASA 325, sq hep untill mobile ID: miconazole powder to groins Endo: SSI, [id number] Dispo: CVCC, full code Discussed with attending surgeon on rounds this morning. MAGDIEL Morris 04/06/2022 Between the hours of 1800 - 0600 and on the weekends please page [phone]. Olena Loya MD - 04/05/2022 11:06 AM EDT CRITICAL CARE ATTENDING PROGRESS NOTE ASSESSMENT, MANAGEMENT, and DECISION MAKING: NEURO: Continue rehab and support. Pain control satisfactory. RESP: Continue chest tube management. CV: MAP goal 65-75. Continue negative fluid balance. Given improvement in intravascular volume status reasonable to see if stopping dobutamine is now appropriate. Will need attention continued to bloodpressure/afterload control. FEK: VAISHNAVI improved. Continue diuresis. Continue to optimize renal perfusion, dose medications appropriately, avoid nephrotoxins. HEME: Heparin SC prophylaxis. GI: Support/diet. OTHER: Will need evaluation of findings from CT on 03/23/2022: (UNEXPECTED FINDING of pathologic enlargement of mediastinal lymph nodes especially in the right paratracheal region, abnormal findings inthe right and left liver lobe, as well as numerous very small pulmonary nodules. Findings are highlysuspicious for malignancy.) Patient seen and examined. Marcelle Albarran is a 72 y.o. female has issues that include: Active Hospital Problems Diagnosis ??? S/P AVR (aortic valve replacement) and aortoplasty and CABG 03/30/22 ??? Mediastinal lymphadenopathy, abnormal findings right and left liver lobes, numerous very small pulmonary nodules From CT 03/23/2022: UNEXPECTED FINDING of pathologic enlargement of mediastinal lymph nodes especially in the right paratracheal region, abnormal findings in the right and left liver lobe, as well as numerous very small pulmonary nodules. Findings are highly suspicious for malignancy. ??? Class 3 severe obesity in adult ??? Pulmonary hypertension ??? CAD (coronary artery disease) ??? Hypertension ??? Diabetes mellitus Resolved Hospital Problems No resolved problems to display. Active Non-Hospital Problems Diagnosis ??? Bradycardia ??? Left atrial dilation ??? Aortic stenosis, severe ??? SOB (shortness of breath) ??? Lung nodule ??? Dermatitis EXAM: Temp: [36.8 ??C (98.2 ??F)-37 ??C (98.6 ??F)] Heart Rate: [90-145] Resp: [14-25] BP: -- SpO2: [94 %-100 %] Heart Rate from SpO2: -- Physical Exam Constitutional: General: She is not in acute distress. Appearance: She is obese. She is not ill-appearing. Cardiovascular: Rate and Rhythm: Normal rate. Pulmonary: Breath sounds: Normal breath sounds. Neurological: Mental Status: She is alert. Body mass index is 50.61 kg/m??. IS PATIENT CRITICALLY ILL ? Is there a high potential of sudden, clinically significant, or life threatening deterioration? Yes Is there a need for direct personal assessment and management to treat/prevent multiple vital organfailure/deterioration? Yes PATIENT IS CRITICALLY ILL WITH THESE DIAGNOSES BEING MANAGED: Hypotension Postoperative and Other:decreased cardiac output Renal Disease/Failure Acute I personally performed 30 minutes of aggregate critical care time exclusive of procedures and teaching. This includes time spent during direct patient evaluation and reassessment, interpreting diagnostic tests, directing life and/or organ supporting interventions and documentation on the unit. Time noted does not include overlapping time with other physicians or associate providers. Konstantin Amado PA - 04/05/2022 10:05 AM EDT Cardiac Surgery Progress Note Marcelle Albarran is a 72 y.o. female who is 6 Days Post-Op AVR, asc patch repair, CABGx2. PMH of , CAD, bradycardia, DM, HTN, lung/mediastinal/liver nodules, bowel obstruction s/p GI surgery. 24h Events: Remains on dobutamine at 2 Responding to diuresis. Cr down-trending Left pigtail removed. Right pigtail remains Afib with RVR 0100. Amio bolus and drip. Mag given. Converted NSR at 0300. S: Feels better. Pain controlled. Tolerating diet. Passing gas. +BM. Bed to chair but yet to ambulate. Denies dyspnea. O: Temp: [36.8 ??C (98.2 ??F)-37 ??C (98.6 ??F)] Heart Rate: [90-145] Resp: [14-25] BP: -- SpO2: [94 %-100 %] Heart Rate from SpO2: -- Drips: Dobutamine 2 Amio 1 04/04 0701 - 04/05 0700 In: 1433.1 [P.O.:880; I.V.:553.1] Out: 3235 [Urine:3125] Right pigtail CT - 100 / 20, serous, no air leak Admit weight: 100.4 kg Current weight: Weight: 109.8 kg (242 lb 1 oz) Physical Exam: General: Sitting in chair. NAD. Pleasant. Neuro: Awake and alert. CN II-XII grossly intact, moves all extremities without focal deficit. 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 female 6 Days Post-Op AVR, asc patch repair, CABGx2. Acute low output cardiac failure. Cardiorenal syndrome. Hyperkalemia post-op treated. Post-op VAISHNAVI. Left pneumothorax resolved with pigtail. Right pleural effusion, s/p drainage. Post-op atrial fibrillation. Acute post-op pulmonary insufficiency secondary to splinting, atelectasis, and effusions. Stop Dobutamine. Check CI ~1200 and if OK will remove [place] Keep Carreon to monitor urine output since shutting off dobutamine D/C right pigtail Post pull CXR Continue amio drip x24h Cough meds GI consult for nodules on preop ct, closer to d/c Neuro: tylenol, lido patches, oxy prn, celexa CV: amio drip, simvastatin Pulm: nc wean as able, pulm toilet, cough meds, duoneb prn GI: carb control diet, rbo's, protonix : keep carreon Renal: k prn, lasix 40 bid Heme: ASA 325, sq hep untill mobile ID: miconazole powder to groins Endo: SSI, [id number] Dispo: CVCC, full code Discussed with attending surgeon on rounds this morning. MAGDIEL PEARSON 04/05/2022 Between the hours of 1800 - 0600 and on the weekends please page [phone]. Olena Loya MD - 04/04/2022 10:36 AM EDT CRITICAL CARE ATTENDING PROGRESS NOTE ASSESSMENT, MANAGEMENT, and DECISION MAKING: NEURO: Continue rehab and support. Pain control satisfactory. RESP: Continue chest tube on right. Consider removal of chest tube on left. CV: MAP goal 65-75. Continue negative fluid balance. Continues to do well with this and low-dose dobutamine, and would continue with these goals in the short term. FEK: VAISHNAVI improved. Continue diuresis. Continue to optimize renal perfusion, dose medications appropriately, avoid nephrotoxins. HEME: Heparin SC prophylaxis. GI: Support/diet. Patient seen and examined. Marcelle Albarran is a 72 y.o. female has issues that include: Active Hospital Problems Diagnosis ??? S/P AVR (aortic valve replacement) and aortoplasty and CABG 03/30/22 ??? Class 3 severe obesity in adult ??? Pulmonary hypertension ??? CAD (coronary artery disease) ??? Hypertension ??? Diabetes mellitus Resolved Hospital Problems No resolved problems to display. Active Non-Hospital Problems Diagnosis ??? Bradycardia ??? Left atrial dilation ??? Aortic stenosis, severe ??? SOB (shortness of breath) ??? Lung nodule ??? Dermatitis EXAM: Temp: [36.2 ??C (97.2 ??F)-36.9 ??C (98.4 ??F)] Heart Rate: [90-109] Resp: [15-28] BP: (123)/(64) SpO2: [94 %-100 %] Heart Rate from SpO2: -- Physical Exam Constitutional: General: She is not in acute distress. Appearance: She is obese. She is not ill-appearing. Cardiovascular: Rate and Rhythm: Normal rate. Pulmonary: Breath sounds: Normal breath sounds. Neurological: Mental Status: She is alert. Body mass index is 51.25 kg/m??. IS PATIENT CRITICALLY ILL ? Is there a high potential of sudden, clinically significant, or life threatening deterioration? Yes Is there a need for direct personal assessment and management to treat/prevent multiple vital organfailure/deterioration? Yes PATIENT IS CRITICALLY ILL WITH THESE DIAGNOSES BEING MANAGED: Hypotension Postoperative and Other:decreased cardiac output Renal Disease/Failure Acute I personally performed 30 minutes of aggregate critical care time exclusive of procedures and teaching. This includes time spent during direct patient evaluation and reassessment, interpreting diagnostic tests, directing life and/or organ supporting interventions and documentation on the unit. Time noted does not include overlapping time with other physicians or associate providers. Aaron Marcelino PA - 04/04/2022 9:14 AM EDT Cardiac Surgery Progress Note Marcelle Albarran is a 72 y.o. female who is 5 Days Post-Op AVR, asc patch repair, CABGx2. PMH of , CAD, bradycardia, DM, HTN, lung/mediastinal/liver nodules, bowel obstruction s/p GI surgery. 24h Events: -Responsive to dobutamine and lasix. -Pigtails remain. S: pt feels better today. More energy, not as tired and fatigued. Breathing ok. [place] diet. OOB to chair. Willing to walk. Needs bm, +flatus. No appetite. Denies n/v, fever, chills, SOB, CP, abd pain. O: Temp: [36.2 ??C (97.2 ??F)-36.9 ??C (98.4 ??F)] Heart Rate: [90-108] Resp: [15-28] BP: (123-140)/(50-64) SpO2: [94 %-100 %] Heart Rate from SpO2: -- 04/03 0701 - 04/04 0700 In: 1323.5 [P.O.:780; I.V.:543.5] Out: 3760 [Urine:2900] Admit weight: 100.4 kg Current weight: Weight: 111.2 kg (245 lb 2.4 oz) Physical Exam: General: sitting up in chair, pleasant A&Ox3 Neuro: A&Ox3, NFD. Moving all ext CN intact. Lungs: LS clear dim bases. B/l pigtails without air leak, serosanguinous discharge. Heart: rrr, s1s2 no mrg Sinus on tele Abdomen: soft nt +bs Ext: wwp, trace edema Incisions: CDI intact Tubes/Lines/Drains: PIV, RIJ, nav, carreon, b/l pigtails, swan Assessment/Plan: 72 y.o. female 5 Days Post-Op AVR, asc patch repair, CABGx2. Hyperkalemia post-op treated. Post-op VAISHNAVI. Left pneumothorax resolved with pigtail. Right pleural effusion resolved. Continue dobutamine @2 today. Lasix 40 iv bid, assess response may need third dose to get negative Daily bmp Keep swan Keep right pigtail for effusion D/C left pigtail Keep carreon one more day until mobile GI consult for nodules on preop ct, closer to d/c Neuro: tylenol, oxy, celexa CV: dobutamine, nicard prn Pulm: nc wean as able, IS GI: carb control diet, rbo's, protonix : carreon keep one more day Renal: k prn, lasix 40 bid Heme: ASA 325, sq hep untill mobile ID: Periop course complete Endo: ins gtt Dispo: CVCC, full code Discussed with attending surgeon on rounds this morning. MAGDIEL JAIN 04/04/2022 Between the hours of 1800 - 0600 and on the weekends please page [phone]. Olena Loya MD - 04/03/2022 3:47 PM EDT CRITICAL CARE ATTENDING PROGRESS NOTE ASSESSMENT, MANAGEMENT, and DECISION MAKING: NEURO: Pain control appears satisfactory. RESP: Right-sided effusion drained today. Consider moving left sided tube to water seal. CV: MAP goal 65-75. Continues to improve hemodynamically, with downward trending filling pressures and maintained cardiac output. Heart rate increased, so downward managing dobutamine, which could likely be weaned to off in the near term. Continue negative fluid balance. FEK: VAISHNAVI improved. Continue diuresis. Continue to optimize renal perfusion, dose medications appropriately, avoid nephrotoxins. HEME: Heparin SC prophylaxis. GI: Advance diet. Patient seen and examined. Marcelle Albarran is a 72 y.o. female has issues that include: Active Hospital Problems Diagnosis ??? S/P AVR (aortic valve replacement) and aortoplasty and CABG 03/30/22 ??? Class 3 severe obesity in adult ??? Pulmonary hypertension ??? CAD (coronary artery disease) ??? Hypertension ??? Diabetes mellitus Resolved Hospital Problems No resolved problems to display. Active Non-Hospital Problems Diagnosis ??? Bradycardia ??? Left atrial dilation ??? Aortic stenosis, severe ??? SOB (shortness of breath) ??? Lung nodule ??? Dermatitis EXAM: Temp: [36.4 ??C (97.5 ??F)-37 ??C (98.6 ??F)] Heart Rate: [91-107] Resp: [14-29] BP: (140)/(50) SpO2: [91 %-100 %] Heart Rate from SpO2: -- Physical Exam Constitutional: General: She is not in acute distress. Appearance: She is obese. She is not ill-appearing. Cardiovascular: Rate and Rhythm: Normal rate. Pulmonary: Breath sounds: Normal breath sounds. Neurological: Mental Status: She is alert. Body mass index is 51.25 kg/m??. IS PATIENT CRITICALLY ILL ? Is there a high potential of sudden, clinically significant, or life threatening deterioration? Yes Is there a need for direct personal assessment and management to treat/prevent multiple vital organfailure/deterioration? Yes PATIENT IS CRITICALLY ILL WITH THESE DIAGNOSES BEING MANAGED: Hypotension Postoperative and Other:decreased cardiac output Renal Disease/Failure Acute I personally performed 30 minutes of aggregate critical care time exclusive of procedures and teaching. This includes time spent during direct patient evaluation and reassessment, interpreting diagnostic tests, directing life and/or organ supporting interventions and documentation on the unit. Time noted does not include overlapping time with other physicians or associate providers. Radha Garcia PT - 04/03/2022 3:21 PM EDT Physical Therapy Note Treatment # 2 Patient profile: 72 y.o. female 3 Days Post-Op AVR, asc patch repair, CABGx2. Hyperkalemia post-op treated. Post-op VAISHNAVI. Left pneumothorax. Plan today: Transduce CVP Place pigtail for left pneumothorax Hyperkalemia treated last night, K level pending this AM. Cr 1.29 today; daily bmps Keep carreon one more day until mobile D/C TPW GI consult for nodules on preop ct, closer to d/c Social History: Pt lives with her dtr. Another dtr lives next door. Home is 1 living with 4-5 steps to enter home. 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 Pt does not use a device at baseline. She drives. She is indep with all ADL's. Precautions/Special Considerations: STERNAL PRECAUTIONS (No pushing, pulling or lifting >8-10lbs); SWAN ( dobutamine), Nicardipine; at risk to fall; a-line; L pigtail; plan for R pigtail placement today. Mobility and Positioning Recommendations: ?? Ambulate 3-4x/daily with nursing with rolling walker and min assist x 1; chair follow once SWAN d/c'ed ?? OOB in chair for all meals Subjective: They have to put in another tube. Objective: Pt seen in the CVCC this AM. In chair at start and end of session Vital Signs: SWAN in place SpO2 (2L) 93-95% BP (MAP) 116//68 mmHg; Nicardipine HR 100's bpm Incentive Spirometer: 750 mL with cues Pain: 2/10 reported by patient at rest; 2/10 with mobility Bed Mobility: Supine ->Sit: not assessed, up in chair Transfers: Sit to Stand: min assist x 1 with to rolling walker; cues Stand to Sit: cg-min assist x 1 cues Sit to stand x 5 times during session. Gait: Marched in place and forward and backward steps each stand with Cg assist with rolling walker.Unable to ambulate distance secondary SWAN Therex: seated: resisted LAQ/knee flex; hip flex; standing: heel raises, marching, partial sqauts Balance: fair with rolling walker Stairs: not assessed Education/Exercise Instruction: Reviewed role of PT; sternal precautions, safety, importance of mobility and IS/deep breathing Assessment: Marcelle presents today with SWAN back in place and waiting a R chest tube placement. She remains on Dobutamine but remains very motivated to mobilize. She tolerated 5 stands today to walker and able to march in place and perform standing there-ex. Vitals stable. She needs cues for sternal precautions dn breathing techniques. Anticipate she will make gains and be safe for home d/c once medically ready. Plan: 2-4x/week for continued transfer training, gait, stairs and pt education. Discharge Recommendations: Home with dtr and support from other dtr who lives next door. Equipment needs for home at d/c: TBD; does not own DME Goals to be achieved by 04/06/22--ongoing as of today 1. Pt will perform supine to sit transfers with supervision to/from flat bed, log roll technique with assist of family. 2. Pt will perform sit><stand transfers with supervision with least restrictive device 3. Pt will perform bed to chair transfers with supervision with least restrictive device 4. Pt will ambulate at least 160' with supervision with least restrictive device. 5. Pt will perform 5 stairs with rail, LRAD and supervision. RADHA GARCIA, PT Pager: [phone] Physical Therapy Inpatient Rehabilitation Department Time IN / OUT: 6077-1097 Total time: 28 mins (tef, armando) Vesna Trent APRN - 04/03/2022 10:43 AM EDT Cardiac Surgery Progress Note Marcelle Albarran is a 72 y.o. female who is 4 Days Post-Op AVR, asc patch repair, CABGx2. PMH of , CAD, bradycardia, DM, HTN, lung/mediastinal/liver nodules, bowel obstruction s/p GI surgery. 24h Events: Increasing Cr, little response to lasix, swan refloated, CI 1.5, MV 30 Dobutamine started 2.5 increased to 5, MV improved to 52, CI 2+ Responded to lasix Cr down to 0.9 this am. 1.8u/o ~75ml/hr did received lasix 40 x1 Left pnx, left pigtail placed, 350/150 overnight Right pleural effusion on CXR Echo limited study, poor views, ef 50-55% S: pt feels ok, frustrated with needing chest tubes. Breathing ok but does have persistent productive cough. Pain tolerable. Feels weak. Stood, hasnt really walked at all yet. Needs bm, +flatus. No appetite. Denies n/v, fever, chills, SOB, CP, abd pain. O: Temp: [36.4 ??C (97.5 ??F)-37 ??C (98.6 ??F)] Heart Rate: [86-107] Resp: [14-29] BP: (140)/(50) SpO2: [90 %-100 %] Heart Rate from SpO2: -- 04/02 0701 - 04/03 0700 In: 1408.6 [P.O.:550; I.V.:858.6] Out: 2145 [Urine:1795] Admit weight: 100.4 kg Current weight: Weight: 111.2 kg (245 lb 2.4 oz) Physical Exam: General: sitting up in chair, pleasant A&Ox3 Neuro: A&Ox3, NFD. Moving all ext CN intact. Lungs: LS clear dim bases. Heart: rrr, s1s2 no mrg Sinus on tele Abdomen: soft nt +bs Ext: wwp, trace edema Incisions: CDI intact Tubes/Lines/Drains: GALINA, YAKELIN, lauri chopra Assessment/Plan: 72 y.o. female 4 Days Post-Op AVR, asc patch repair, CABGx2. Hyperkalemia post-op treated. Post-op VAISHNAVI. Left pneumothorax. Right pleural effusion Continue dobutamine, decrease to 2.5 Lasix 40 iv bid, assess response may need third dose to get negative Daily bmp Keep swan Place right pigtail for effusion Keep left pigtail Keep carreon one more day until mobile GI consult for nodules on preop ct, closer to d/c Neuro: tylenol, oxy, celexa CV: dobutamine, nicard prn Pulm: nc wean as able, IS GI: carb control diet, rbo's, protonix : carreon keep one more day Renal: k prn, lasix 40 bid Heme: ASA 325, sq hep till mobile ID: Periop course complete Endo: ins gtt Dispo: CVCC, full code Discussed with attending surgeon on rounds this morning. VESNA TRENT, JENN 04/03/2022 Between the hours of 1800 - 0600 and on the weekends please page [phone]. Olena Loya MD - 04/02/2022 3:13 PM EDT CRITICAL CARE ATTENDING PROGRESS NOTE ASSESSMENT, MANAGEMENT, and DECISION MAKING: NEURO: Pain medication appears efficacious. RESP: Left sided pigtail-type chest tube placed for pneumothorax, with resolution. There is a right pleural effusion that would consider draining. Respiratory status stable on low-level oxygen supplementation. CV: MAP goal 65-75. Pulmonary artery catheter replaced, demonstrating low cardiac output and low mixed venous saturation. Initiated inotropic support with dobutamine with improvement in cardiac output.PAOP is elevated and have administered diuretic in addition to inotropic support. Will obtain echocar diogram. Have stopped metoprolol, but if heart rate increases with this and with dobutamine, then consider milrinone instead. Utilize hydralazine for BP control, would consider nicardipine. HEME: Start prophylaxis pharmacologically. GI: Advance diet as tolerated, but was nauseated to caution with this. Patient seen and examined. Marcelle Albarran is a 72 y.o. female has issues that include: Active Hospital Problems Diagnosis ??? S/P AVR (aortic valve replacement) and aortoplasty and CABG 03/30/22 ??? Class 3 severe obesity in adult ??? Pulmonary hypertension ??? CAD (coronary artery disease) ??? Hypertension ??? Diabetes mellitus Resolved Hospital Problems No resolved problems to display. Active Non-Hospital Problems Diagnosis ??? Bradycardia ??? Left atrial dilation ??? Aortic stenosis, severe ??? SOB (shortness of breath) ??? Lung nodule ??? Dermatitis EXAM: Temp: [36.5 ??C (97.7 ??F)-36.8 ??C (98.2 ??F)] Heart Rate: [80-96] Resp: [15-25] BP: (126)/(68) SpO2: [89 %-99 %] Heart Rate from SpO2: -- Physical Exam Constitutional: General: She is not in acute distress. Appearance: She is obese. She is not ill-appearing. Cardiovascular: Rate and Rhythm: Normal rate. Pulmonary: Breath sounds: Normal breath sounds. Neurological: Mental Status: She is alert. Body mass index is 50.19 kg/m??. IS PATIENT CRITICALLY ILL ? Is there a high potential of sudden, clinically significant, or life threatening deterioration? Yes Is there a need for direct personal assessment and management to treat/prevent multiple vital organfailure/deterioration? Yes PATIENT IS CRITICALLY ILL WITH THESE DIAGNOSES BEING MANAGED: Hypotension Postoperative and Other:decreased cardiac output Renal Disease/Failure Acute I personally performed 30 minutes of aggregate critical care time exclusive of procedures and teaching. This includes time spent during direct patient evaluation and reassessment, interpreting diagnostic tests, directing life and/or organ supporting interventions and documentation on the unit. Time noted does not include overlapping time with other physicians or associate providers. Radha Garcia, PT - 04/02/2022 2:30 PM EDT Physical Therapy Evaluation Patient profile: 72 y.o. female 3 Days Post-Op AVR, asc patch repair, CABGx2. Hyperkalemia post-op treated. Post-op VAISHNAVI. Left pneumothorax. Plan today: Transduce CVP Place pigtail for left pneumothorax Hyperkalemia treated last night, K level pending this AM. Cr 1.29 today; daily bmps Keep carreon one more day until mobile D/C TPW GI consult for nodules on preop ct, closer to d/c Patient with the following active problems: Past Medical History: Diagnosis Date ??? Chronic anxiety ??? Class 3 severe obesity in adult 03/30/2022 ??? Claudication ??? Coronary artery disease ??? Diabetes ??? Diabetes mellitus 02/04/2022 ??? Gastroesophageal reflux ??? Heart valve disease ??? High blood pressure ??? Hyperlipidemia ??? Hypertension 02/04/2022 ??? Incisional hernia ??? Lung nodule 02/04/2022 ??? Pulmonary hypertension 03/30/2022 ??? S/P AVR (aortic valve replacement) and aortoplasty and CABG 03/30/2022 Past Surgical History: Procedure Laterality Date ??? APPENDECTOMY ??? GALLBLADDER SURGERY ??? HERNIA REPAIR ??? HYSTERECTOMY, TOTAL ABDOMINAL ? ? PRG CATH PLPR CORONARY ART W/INJ FOR ANGIO W/R HEART CATH IMG S&I N/A 03/19/2022 CORONARY ANGIOGRAPHY; W RHC performed by Dwayne Rachel MD at [facility] CATH LABS ??? PRO CABG, ARTERIAL, SINGLE N/A 03/30/2022 @CABG, USING ARTERIAL GRAFT;SINGLE ARTERIAL GRAFT (WRVU 33.75) performed by Abdulkadir Raya MDat [facility] MAIN OR ??? PRO CABG, ARTERY-VEIN, SINGLE N/A 03/30/2022 @CABG, VENOUS & ARTERIAL GRAFT;SINGLE VEIN GRAFT (WRVU 3.61) performed by Abdulkadir Raya MD at [facility] MAIN OR ??? PRO ENDOSCOPY W/VIDEO-ASST VEIN HARVEST, CABG Left 03/30/2022 ENDOSCOPIC HARVEST VEIN(S) FOR CABG (WRVU 0.31) performed by Abdulkadir Raya MD at [facility] MAIN OR ??? PRO REPLACEMENT PROSTHETIC AORTIC VALVE OPEN W CARDIOPULMONARY BYPASS HOMOGRF/STENT N/A 03/30/2022 @REPLACE AORTIC VALVE, OPEN, W\CPB, W\PROSTHETIC VALVE (WRVU 41.32) performed by Abdulkadir Raya MD at [facility] MAIN OR ??? PRO UNLISTED CARDIAC SURG PROCEDURE N/A 03/30/2022 REPAIR, PATCH, AORTIC ROOT (WRVU 5.94) performed by Abdulkadir Raya MD at [facility] MAIN OR ??? WRIST SURGERY Bilateral Social History: Pt lives with her dtr. Another dtr lives next door. Home is 1 living with 4-5 steps to enter home. 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 Pt does not use a device at baseline. She drives. She is indep with all ADL's. Precautions/Special Considerations: STERNAL PRECAUTIONS (No pushing, pulling or lifting >8-10lbs); at risk to fall; a-line; 2L O2; plan for pigtail placement today Mobility and Positioning Recommendations: ?? Ambulate 3-4x/daily with nursing with rolling walker and min assist x 1; chair follow ?? OOB in chair for all meals Subjective: I just can't take deep breaths. Will it be better after they drain it? ?? Plan for pigtail today My feet are asleep. Objective: Pt seen in the CVCC for initial evaluation, post operative protocol exs and precaution teaching w/ transfers and gait. Pt in chair at start of session; in bed at end of session for team to place pigtail. Vital Signs: SpO2 (2L) 96 % BP (MAP) 113/68 mmHg HR 100 bpm Incentive Spirometer: 750 mL with cues Pain: 4/10 reported by patient at rest; 4/10 with mobility Mental Status: Alert. Oriented x 4. Skin: Sternal incision CDI. Musculoskeletal: ROM: WFL Strength: B LE's 5/5 Bed Mobility: Supine ->Sit: not assessed Sit-> Supine: max assist for LE's; mod assist for trunk; cues for technique Transfers: Sit to Stand: min assist x 2 with B hand held assist. Min assist x 2 to rolling walker; cues Stand to Sit: cg-min assist x 2; cues Sit to stand x 3 times during session. Gait: 5-6 steps from chair to bed with B hand held assist. Stood again from EOB to rolling walker and able to march in place x 40 seconds Balance: fair with rolling walker Stairs: not assessed Education/Exercise Instruction: Reviewed role of PT; sternal precautions, safety, importance of mobility and IS/deep breathing Assessment: Pt is s/p above CT surgery with sternotomy presenting with expected post operative pain,impaired skin integrity, impaired breathing mechanics, impaired cough, impaired activity tolerance resulting in decreased functional balance, impaired transfers and gait. Pt requires cues for sternal precautions, pacing and breathing techniques with all mobility at this time. Pt able to ambulate back to bed from chair for pigtail placement. Pt requires assist for all transfers. She fatigues quickly with mobility. Did tolerate a stand and able to march in place. SOB with limited mobility but vitals remained stable on 2L. Anticipate pt will make gains with mobility and be safe for home d/c with assist once medically ready. Will progress ambulation distance next visit. Plan: 2-4x/week for continued transfer training, gait, stairs and pt education. Discharge Recommendations: Home with dtr and support from other dtr who lives next door. Equipment needs for home at d/c: TBD; does not own DME Goals to be achieved by 04/06/22. 1. Pt will perform supine to sit transfers with supervision to/from flat bed, log roll technique with assist of family. 2. Pt will perform sit><stand transfers with supervision with least restrictive device 3. Pt will perform bed to chair transfers with supervision with least restrictive device 4. Pt will ambulate at least 160' with supervision with least restrictive device. 5. Pt will perform 5 stairs with rail, LRAD and supervision. Patient status, treatment, and mobility recommendations have been discussed with nursing, Care management and Medical team. Thank you for this consult. 2017 PT Evaluation Code Rationale: ?? Diagnosis & Pertinent Co-Morbidities, personal factors, and present illness affecting Plan ofCare: (see above); Additional personal factors or co- morbidities that impact plan: ?? Total # of Factors: 0 1-2 3+ x ?? Examination of body system impairments, functional limitations and behaviors, and/or participation restrictions. Addressing 1-2 elements Addressing 3 + elements Addressing 4 + elements x ?? Clinical presentation: See assessment above. Stable/Uncomplicated Evolving/Fluctuating Symptoms Unstable/Unpredictable x ?? Clinical decision making of moderate complexity based on pt's functional performance as outlined in this evaluation. RADHA GARCIA, PT Pager: [phone] Physical Therapy Inpatient Rehabilitation Department Time IN / OUT: 1595-0926 Total time: 35 mins ( eval) Aaron Marcelino PA - 04/02/2022 8:34 AM EDT Cardiac Surgery Progress Note Marcelle Albarran is a 72 y.o. female who is 3 Days Post-Op AVR, asc patch repair, CABGx2. PMH of , CAD, bradycardia, DM, HTN, lung/mediastinal/liver nodules, bowel obstruction s/p GI surgery. 24h Events: Lasix given yesterday. Metop started Hyperkalemia treated overnight. S: pt feels ok, no complaints. Pain tolerable. Breathing ok. Feels weak. Stood yesterday. Willing towalk today. + flatus. - BM. Denies n/v, fever, chills, SOB, CP, abd pain. O: Temp: [36.5 ??C (97.7 ??F)-36.8 ??C (98.2 ??F)] Heart Rate: [80-96] Resp: [15-25] BP: (126)/(68) SpO2: [89 %-99 %] Heart Rate from SpO2: -- 04/01 0701 - 04/02 0700 In: 1882.8 [P.O.:950; I.V.:932.8] Out: 1025 [Urine:935] Admit weight: 100.4 kg Current weight: Weight: 108.9 kg (240 lb 1.3 oz) Physical Exam: General: sitting up in chair, pleasant A&Ox3 Neuro: A&Ox3, NFD. Moving all ext CN intact. Lungs: LS clear dim bases. Heart: rrr, s1s2 no mrg Sinus on tele Abdomen: soft nt +bs Ext: wwp, no edema Incisions: CDI intact Tubes/Lines/Drains: PIV, YAKELIN, nav, cruz, lauri Assessment/Plan: 72 y.o. female 3 Days Post-Op AVR, asc patch repair, CABGx2. Hyperkalemia post-op treated. Post-op VAISHNAVI. Left pneumothorax. Transduce CVP Place pigtail for left pneumothorax Hyperkalemia treated last night, K level pending this AM. Cr 1.29 today; daily bmps Keep carreon one more day until mobile D/C TPW GI consult for nodules on preop ct, closer to d/c Neuro: tylenol, oxy, celexa CV: Metop 25 bid Pulm: nc wean as able, IS GI: carb control diet, rbo's, protonix : carreon keep one more day Renal: k prn Heme: ASA 325 ID: Periop course complete Endo: ins gtt Dispo: CVCC, full code Discussed with attending surgeon on rounds this morning. MAGDIEL JAIN 04/02/2022 Between the hours of 1800 - 0600 and on the weekends please page [phone]. Vesna Trent APRN - 04/01/2022 8:15 AM EDT Cardiac Surgery Progress Note Marcelle Albarran is a 72 y.o. female who is 2 Days Post-Op AVR, asc patch repair, CABGx2. PMH of , CAD, bradycardia, DM, HTN, lung/mediastinal/liver nodules, bowel obstruction s/p GI surgery. 24h Events: Extubated Wean epi to 1 Lasix x 1 Hyperkalemia treated S: pt feels ok, no complaints. +flatus, no bm, no appetite. O: Temp: [36.6 ??C (97.9 ??F)-37.4 ??C (99.3 ??F)] Heart Rate: [91-104] Resp: [13-25] BP: (108-118)/(70-78) SpO2: [93 %-99 %] Heart Rate from SpO2: -- Hemodynamics: CVP 13, CI 2.4 EPI 1 03/31 0701 - 04/01 0700 In: 2571.9 [P.O.:265; I.V.:2306.9] Out: 1535 [Urine:995] CT Left pl ct - 220/[address] 260/10 Admit weight: 100.4 kg Current weight: Weight: 110.4 kg (243 lb 6.2 oz) Physical Exam: General: sitting up in chair, pleasant Neuro: A&Ox3, NFD. Moving all ext Lungs: LS clear dim Heart: rrr, s1s2 no mrg Abdomen: soft nt +bs Ext: wwp, no edema Incisions: CDI intact Tubes/Lines/Drains: PIV, RIJ, nav, med ct's, left pl ct, pw, carreon Assessment/Plan: 72 y.o. female 2 Days Post-Op AVR, asc patch repair, CABGx2. Stop epi, d/c swan later Lasix 40 iv x 1, bmp daily. Hyperkalemia treated last night, k 5.1 this am Cr up to 1.3 yesterday, now 1.2, daily bmp ordered D/c ct's Keep carreon one more day Bowel surgery history, +flatus, slow diet adv no appetite GI consult for nodules on preop ct, closer to d/c Neuro: tylenol, oxy, celexa CV: nicard gtt prn, epi off Pulm: nc wean as able, IS GI: slow diet advance, rbo's, protonix : carreon keep one more day Renal: k prn, lasix 40iv x 1 Heme: ASA ID: Periop course complete Endo: ins gtt Dispo: CVCC, full code Discussed with attending surgeon on rounds this morning. VESNA TRENT APRN 04/01/2022 Between the hours of 1800 - 0600 and on the weekends please page [phone]. Vesna Trent, [employer]INE OPERATOR - 03/31/2022 10:36 AM EDT Cardiac Surgery Progress Note Marcelle Albarran is a 72 y.o. female who is 1 Day Post-Op AVR, asc patch repair, CABGx2. PMH of , CAD, bradycardia, DM, HTN, lung/mediastinal/liver nodules, bowel obstruction s/p GI surgery. 24h Events: tx to cvcc post case Slow vent wean overnight Ext on rounds this am Epi remains at 3 nicard prn for bp goal map 60 S: just awoken and extubated. Sleepy O: Temp: [35.2 ??C (95.36 ??F)-37.2 ??C (98.96 ??F)] Heart Rate: [71-95] Resp: [13-26] BP: (89)/(40) SpO2: [90 %-100 %] Heart Rate from SpO2: [76 bpm-84 bpm] Hemodynamics: CVP 23, CI 2.3 EPI 2 03/30 0701 - 03/31 0700 In: 5082 [I.V.:2247] Out: 3455 [Urine:1880; Drains:40] CT Left pl ct - 200/[address] 260/50 Admit weight: 100.4 kg Current weight: Weight: 108 kg (238 lb 1.6 oz) Physical Exam: General: sitting up in bed Neuro: A&Ox3, NFD. Moving all ext Lungs: LS clear dim Heart: rrr, s1s2 no mrg Abdomen: soft nt hypoactive bs Ext: wwp, no edema Incisions: CDI intact Tubes/Lines/Drains: PIV, RIJ, nav, med ct's, left pl ct, pw, carreon Assessment/Plan: 72 y.o. female 1 Day Post-Op AVR, asc patch repair, CABGx2. Just extubated Will keep ct's today Epi wean slowly Map goal 65-75 nicard prn Bowel surgery history will be sips and chips till flatus GI consult for nodules on preop ct, closer to d/c Lasix 20 iv x 1 Neuro: tylenol, oxy, celexa CV: nicard gtt prn, epi wean Pulm: nc wean as able, IS GI: sips and chips till flatus, rbo's, protonix : carreon Renal: k prn, lasix 20iv x 1 Heme: ASA ID: Periop course complete Endo: ins gtt Dispo: CVCC, full code Discussed with attending surgeon on rounds this morning. VESNA TRENT, JENN 03/31/2022 Between the hours of 1800 - 0600 and on the weekends please page [phone]. Olena Loya MD - 03/31/2022 9:35 AM EDT CRITICAL CARE ATTENDING PROGRESS NOTE ASSESSMENT, MANAGEMENT, and DECISION MAKING: NEURO: Transition to oral pain medications. RESP: Extubated earlier, stable on supplemental oxygen. Encourage secretion clearance and pulmonary expansion. Chest tube management ongoing. Ventilation impairment has improved significantly. CV: Lowering inotropic support, continuing blood pressure management. MAP goal 65-75. HEME: May need DVT prophylaxis pharmacologically. GI: Advance diet as tolerated. Patient seen and examined. Marcelle Albarran is a 72 y.o. female has issues that include: Active Hospital Problems Diagnosis ??? S/P AVR (aortic valve replacement) and aortoplasty and CABG 03/30/22 ??? Class 3 severe obesity in adult ??? Pulmonary hypertension ??? CAD (coronary artery disease) ??? Hypertension ??? Diabetes mellitus Resolved Hospital Problems No resolved problems to display. Active Non-Hospital Problems Diagnosis ??? Bradycardia ??? Left atrial dilation ??? Aortic stenosis, severe ??? SOB (shortness of breath) ??? Lung nodule ??? Dermatitis EXAM: Temp: [35.2 ??C (95.36 ??F)-37.2 ??C (98.96 ??F)] Heart Rate: [71-91] Resp: [13-26] BP: (89)/(40) SpO2: [90 %-100 %] Heart Rate from SpO2: [76 bpm-84 bpm] Physical Exam Constitutional: General: She is not in acute distress. Appearance: She is obese. She is not ill-appearing. Cardiovascular: Rate and Rhythm: Normal rate. Pulmonary: Breath sounds: Normal breath sounds. Neurological: Mental Status: She is alert. Body mass index is 49.78 kg/m??. IS PATIENT CRITICALLY ILL ? Is there a high potential of sudden, clinically significant, or life threatening deterioration? Yes Is there a need for direct personal assessment and management to treat/prevent multiple vital organfailure/deterioration? Yes PATIENT IS CRITICALLY ILL WITH THESE DIAGNOSES BEING MANAGED: Hypertension/Hypertensive Postoperative Hypotension Postoperative Intubated for airway protection secondary to postoperative condition I personally performed 30 minutes of aggregate critical care time exclusive of procedures and teaching. This includes time spent during direct patient evaluation and reassessment, interpreting diagnostic tests, directing life and/or organ supporting interventions and documentation on the unit. Time noted does not include overlapping time with other physicians or associate providers. Lacey Tran, [facility] - 03/30/2022 9:32 PM EDT NO PROTOCOL Vent Settings: Ventilator Mode: SIMV (VC) + PS Tidal Volume Set: 390 Resp Rate Set: 24 PEEP Set: 10 FiO2: 40 % PSV: 5 Ventilator Measurements: Resp: 24 Vt Exhaled: 370 PIP: 25 Vt Spontaneous: 383 MAP: 14.2 Plateau Press: (ermias pt active) Ve: 9.1 PEEP: (ermias patient active) SpO2: 99 % EtCO2: 33 mmHg Airway: 8.0 @ 22 cm at the Gum. Skin Integrity: WDL MDI Inhaled Medications: Albuterol Breath Sounds: Fine crackles Secretions: None Assessment / Events / Plan of the Day: Received patient on SIMV. Per MD, recruitment maneuver performed. Patient tolerated recruitment well and ABGs improved afterward. 0400- 7.31/49/105/24 Lacey L [place]au, NEWS CONTENT SPECIALIST Olena Loya MD - 03/30/2022 8:16 PM EDT CRITICAL CARE ATTENDING PROGRESS NOTE ASSESSMENT, MANAGEMENT, and DECISION MAKING: Postoperative management issues have included optimization of hemodynamic status to goals of PA catheter and perfusion pressure data. Attention to blood pressure crucial in the immediate postoperative period. Correction of coagulation parameters ongoing. Fully supportive ventilator settings ongoing. Anticipate weaning during the emergence phase. Sedation with propofol and Precedex. Pain control with intravenous opioid. Patient seen and examined. Marcelle Albarran is a 72 y.o. female has issues that include: Active Hospital Problems Diagnosis ??? S/P AVR (aortic valve replacement) and aortoplasty and CABG 03/30/22 ??? Class 3 severe obesity in adult ??? Pulmonary hypertension ??? CAD (coronary artery disease) ??? Hypertension ??? Diabetes mellitus Resolved Hospital Problems No resolved problems to display. Active Non-Hospital Problems Diagnosis ??? Bradycardia ??? Left atrial dilation ??? Aortic stenosis, severe ??? SOB (shortness of breath) ??? Lung nodule ??? Dermatitis EXAM: Temp: [35.2 ??C (95.36 ??F)-36.5 ??C (97.7 ??F)] Heart Rate: [75-122] Resp: [15-26] BP: (89-139)/(40-96) SpO2: [90 %-100 %] Heart Rate from SpO2: [76 bpm-84 bpm] Physical Exam Constitutional: Interventions: She is sedated and intubated. Cardiovascular: Rate and Rhythm: Normal rate. Pulmonary: Effort: She is intubated. Breath sounds: Normal breath sounds. Body mass index is 46.27 kg/m??. IS PATIENT CRITICALLY ILL ? Is there a high potential of sudden, clinically significant, or life threatening deterioration? Yes Is there a need for direct personal assessment and management to treat/prevent multiple vital organfailure/deterioration? Yes PATIENT IS CRITICALLY ILL WITH THESE DIAGNOSES BEING MANAGED: Hypertension/Hypertensive Postoperative Hypotension Postoperative Intubated for airway protection secondary to postoperative condition I personally performed 30 minutes of aggregate critical care time exclusive of procedures and teaching. This includes time spent during direct patient evaluation and reassessment, interpreting diagnostic tests, directing life and/or organ supporting interventions and documentation on the unit. Time noted does not include overlapping time with other physicians or associate providers. Vielka Richardson RCP - 03/30/2022 4:34 PM EDT CTICU Protocol: Yes PSBT Protocol: Yes Vent Settings: Settings: Tidal Volume Set: 330 Resp. Rate Set: 15 PS Above PEEP (cm H2O): 5 Set PEEP (cm H2O): 5 Set FiO2: 100 % VT/K Inspiratory Time: 0.9 Sec(s) Measurements: Tidal Volume Measured Exp.: 320 Resp: 15 Peak Inspiratory Pressure: 25 Mean Airway Pressure (cm H2O): 11 Minute Ventilation Total Exhaled (L/min): 5 SpO2: 100 % ETCO2 (mmHg): 44 mmHg Airway: 8.0 @ 22 cm at the Gum. Skin Integrity: WDL Assessment / Events / Plan of the Day: Patient arrived from OR intubated. Placed in SIMV (VC) + PS on above noted settings. 1709-ABG Results on 100% FiO2 7.11/80/175/24.9. Tidal volume increased to 370 (9 cc/kg), RR increased to 22, I-time decreased to .75, and PEEP increased to 8. Changes discussed and ok'd with PA. ABG keisha re-drawn 30 mins after changes. 181-ABG 7.19/65/206/24.1. Tidal volume increased to 390 (9.5 cc), RR 26, and titrated FiO2 40%. Spoke with PA and advised we should get another ABG in 30 mins. Continue on pathway Vielka Richardson RCP documented in this encounter Procedure Notes Olena Loya MD - 04/03/2022 3:43 PM EDTAssociated Order(s): CHEST TUBE INSERTION Procedure Note: Chest Tube Indications: dyspnea Pre-operative Diagnosis: Right Effusion Post-operative Diagnosis: Right Effusion Surgeon: OLENA LOYA MD Procedure Details: Procedure performed CVCC. Maximum sterile barrier technique was utilized. After sterile skin prep, under ultrasound guidance, the right pleural collection was entered with a 20 gauge JANA CATH needle & catheter ga needle. Over an .035 inch guidewire, after serial dilation, a 12 Fr tube was placed in the right pleural space. Locking loop formed and secured. Tube was affixed to the skin, wound dressed, and tube left to pleurevac drainage. Specimens: None Fluoroscopy dose: 0 min Complications: None; patient tolerated the procedure well. Findings: 570 ml of serosanguinous fluid obtained Impression: Right chest tube placed Plan: Chest tube to pleurevac at -20 cm H20. Record outputs. Attending Attestation: I performed the procedure. Olena Loya MD - 04/02/2022 4:55 PM EDTAssociated Order(s): CHEST TUBE INSERTION Procedure Note: Chest Tube Indications: pneumothorax Pre-operative Diagnosis: Left Pneumothorax Post-operative Diagnosis: Left Pneumothorax Surgeon: OLENA LOYA MD Procedure Details: Procedure performed CVCC. Maximum sterile barrier technique was utilized. After sterile skin prep, under ultrasound guidance, the left pleural collection was entered with a 20 gauge JANA CATH needle & catheter ga needle. Over an .035 inch guidewire, after serial dilation, a 10 Fr tube was placed inthe left pleural space. Locking loop formed and secured. Tube was sutured to the skin, wound dressed, and tube left to pleurevac drainage. Specimens: None Fluoroscopy dose: 0 min Complications: None; patient tolerated the procedure well. Findings: 100 ml of serous fluid obtained Impression: Left chest tube placed Plan: Chest tube to pleurevac at -20 cm H20. Record outputs. Attending Attestation: I performed the procedure. Olena Loya MD - 04/02/2022 2:35 PM EDTAssociated Order(s): DH INSERT PULMONARY ARTERY CATHETER Pulmonary Arterial Line Placement Procedure Note Indications: Catheter placed for diagnosis and treatment of instability, surveillance and monitoring, cardiac function and renal function. This insertion was not to replace a malfunctioning catheter. This insertion was not due to a suspected line-associated infection. Location of Procedure: [facility] Risks and Benefits: The risks and benefits of this procedure were reviewed and informed consent was obtained obtained. Time Out: Prior to the start of the procedure, the patient's identity, intended procedure, site/side, correct patient positioning and presence of the site jennifer was confirmed as applicable. The medical history and chart were reviewed to rule out potential contraindications to the planned procedure. Hand Hygiene: The stave mill hand did perform hand hygiene prior to line insertion. Procedure Technique: Skin was prepped with chlorhexidine. The introducer that was existing was sterilized and a full drape was placed. The swan was floated innormal fashion without inicident. Floating the [place] Catheter Attempts: as above Comments: sterile technique Sterile Dressing: CHG Impregnated Tegaderm Cardiac Output: 1.5 L/min Complications: No complications. Post Procedure: Procedure well tolerated. Procedure Comments: documented in this encounter Miscellaneous Notes Brief Op Note - Abdulkadir Raya MD - 04/08/2022 12:55 PM EDT Brief Operative Note Patient Name: Marcelle Albarran : [id number] MR#: [id number] Case Date: 03/30/2022 Surgeon: Surgeon(s) and Role: * Abdulkadir Raya MD - Primary * Konstantin Amado PA - Physician Golf Superintendent * Danuta Diaz PA - Physician Golf Superintendent * Nathaniel Larson MD - Assisting Attending Preoperative diagnosis: CAD/ Postoperative diagnosis: CAD/ Procedure(s) (LRB): @REPLACE AORTIC VALVE, OPEN, W\CPB, W\PROSTHETIC VALVE (WRVU 41.32) (N/A) @CABG, USING ARTERIAL GRAFT;SINGLE ARTERIAL GRAFT (WRVU 33.75) (N/A) @CABG, VENOUS & ARTERIAL GRAFT;SINGLE VEIN GRAFT (WRVU 3.61) (N/A) ENDOSCOPIC HARVEST VEIN(S) FOR CABG (WRVU 0.31) (Left) REPAIR, PATCH, AORTIC ROOT (WRVU 5.94) (N/A) Anesthesia: General Findings: CAD, , heavily calcified aortic root Complications: None Intake: Intraprocedure Crystalloid Total Intake Cryoprecipitate Volume 387 mL FFP Volume 1453 mL Cell Saver Volume 995 mL Total Intake 2835 mL Output Urine Output 1100 mL Blood Loss 995 mL Total Output 2095 mL Net Net Volume 740 mL Transfusion No data found in the last 1 encounters. Output: Estimated Blood Loss: 995 mL Urine Output:: 600 mL Other Output: (no other output recorded) Drains: 2 mediastinal and 1 pleural Specimens removed during surgery: Order Name Source Comment Collection Info Order Time SPECIMEN TO PATHOLOGY Aortic Stenosis Aortic Valve Leaflets excision 03/30/2022 10:52 AM Time specimen removed from patient: 10:51 AM Number of tissue samples (in container) 1 Disposition: taken directly to the ICU, intubated and in a critical condition. Condition: doing well without problems Attestation: Case Date: 03/30/2022 I performed this procedure without the involvement of a resident. (Please see the Surgical Encounter Summary for any Implant and Specimen details pertinent to this patient.) Surgical Infection Prevention Bundle Used? N/A Care Management - Russell Santos RN - 04/08/2022 11:10 AM EDT OFFICE OF CARE MANAGEMENT PROGRESS NOTE LOS: Hospital Day 9 days Chart reviewed, care reviewed with primary team and at interdisciplinary rounds. Patient continues to meet inpatient level of care related to: Reason for Hospitalization per H&P or ID: 72 y.o.??female??with a history of bradycardia, left atrial dilation, aortic stenosis, DM, HTN, and lung nodules who presents for evaluation of her aortic valve disease. The patient reports a history of worsening dyspnea with exertion over there past several months. She denies chest pain or any recent episodes of syncope. Her diabetes is well controlled. She recently had a pneumonia which she feels has further hindered her breathing. She has a history of sever GI operations and had a bowel obstruction a few years ago. She recently had a cardiac cath showing multi-vessel CAD.?? 24 hour events per team: Started low dose beta blockade, BP tolerated Carreon removed Continues to respond well to iv lasix Floor status Cleared for home with PT DEV overnight S: Feels well. Pain controlled on just tylenol. Ambulated several times. Did stairs. Wants to go home. +mild NARVAEZ but recovers quickly. Tolerating diet. +BMs. Functional status prior to admission: Independent Home Environment: Others in the home: child(judah), adult. Current Living Arrangements: home/apartment/condo. Accessibility Concerns: 5 SHARIF with railing on both sides onto a porch.. 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, Independent DME used at home: none DME Needed at Discharge: rolling walker Patient is insured through: Primary Insurance: MEDICARE Payor: MEDICARE / Plan: MEDICARE PART A & B / Product Type: *No Product type* / Secondary Insurance: AETNA MEDICARE SUPPLEMENT Last Physical Therapy Recommendation: (home with dtr's and home health) with walker, front wheeled Last Occupational Therapy Recommendation: with Plan for discharge is: Home w/ Services Outpatient Agency/Support Group Needs: Homecare agency Home Health Services: Registered Nurse, Physical Therapy, Anticoagulation monitoring Agency Referrals: Current referrals placed to: [facility] [address] [place] [id number] [facility] [place], [place] Transportation: family or friend will provide Barriers to discharge: Discharge planning Psych: Adjustment to diagnosis/illness, Decision-making Items to Consider for Discharge: Need of rolling walker CM Interventions: CM given updates by MD in the am on medical status and any dispo /concerns updateson the patient. CM is notified that besides the 24 hour events the patient is medically ready for d/c today and VNA orders are pended. CM is notified that the patient is in need of a rolling walker. CM calls patient and places referraland then pends walker order. Team is update. CM notifies referrals with update on current medical status and that the patient might be medically ready for d/c today and that VNA order and d/c summary is signed. CM calls [facility] and they will be up shortly to deliver walker. CM notifies team. CM will continue to monitor progress, follow for continuity of care and assist with discharge planning while patient is inpatient status on current unit. Anticipated Date of Discharge: 04/08/2022 Russell Santos RN Case Flight Attendant of Care Management Pager: [phone] Consult Note - Vielka Guerrero RN - 04/08/2022 10:39 AM EDT [facility] Marcelle Albarran was seen today regarding participation in the outpatient Phase [address] [facility]. The patient agrees to a referral to this program. The referral will be sent at discharge and the patient should be contacted by the Program within 1- 2 weeks from discharge. Initial Assessments - Serene Lemus RN - 03/31/2022 3:28 PM EDT Office of Care Management Initial Assessment SERENE LEMUS RN reviewed record and discussed patient with Care Team. Source of Information: Team, bedside nurse, medical record, and Patient Introduced self/reviewed role; services accepted. Reason for Hospitalization: s/p cabg, AVR & aortic patch Covid Vaccination Status: 1st, 2nd & booster Last COVID test: Lab Results Component Value Date COVID19 Not Detected 03/23/2022 Past medical History: Past Medical History: Diagnosis Date ??? Chronic anxiety ??? Class 3 severe obesity in adult 03/30/2022 ??? Claudication ??? Coronary artery disease ??? Diabetes ??? Diabetes mellitus 02/04/2022 ??? Gastroesophageal reflux ??? Heart valve disease ??? High blood pressure ??? Hyperlipidemia ??? Hypertension 02/04/2022 ??? Incisional hernia ??? Lung nodule 02/04/2022 ??? Pulmonary hypertension 03/30/2022 ??? S/P AVR (aortic valve replacement) and aortoplasty and CABG 03/30/2022 Hospitalizations Within the Past 30 Days: no previous admission in last 30 days Current Decision-Making Capacity: Self Advance Care Planning: Attempt Cardiopulmonary Resuscitation - Inpatient <no information> -Advanced Directive: Yes, not on file Who is your DPOA-HC?: Child Ailyn and An- daughters. Theyhave a copy at home that they are bringing in to have on file. Current Coping/Education/Information Needs: feels that everyone has explained themselves and she understands what is going on. 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 Current Living Arrangements: home/apartment/condo. Accessibility Concerns:5 SHARIF with railing on both sides onto a porch.. Current DME: none Home Address listed as: [address] [place], [place] [id number] Social & Family Supports: All names listed below confirmed with patient as current and correct Extended Emergency Contact Information Primary Emergency Contact: Ailyn Lara Address: [address] [place] [address] of [facility] Mobile Relation: Child Current Care Provided by: child(judah) Provides Primary Care For: pet(s) (dog) Caregiver if needed: child(judah), adult Quality of Family relationships: supportive, involved, helpful Community Resources being provided currently: none Behavioral Health History: Celexa for anxiety and depression Substance Use/Abuse listed: Social History Tobacco Use Smoking Status Former Smoker ??? Types: Cigarettes ??? Quit date: 03/23/2012 ??? Years since quittin.0 Smokeless Tobacco Never Used 0 No problems reported 1-2 Low level 3-5 Moderate level 6-8 Substantial level 9- 10 Severe level 0 to 7 points: Low risk 8 to 15 points: Medium risk 16 to 19 points: High risk 20 to 40 points: Addiction likely Other Pertinent/Service Specific Information: Health/Prescription Coverage: Primary Insurance: MEDICARE Payor: MEDICARE / Plan: MEDICARE PART A & B / Product Type: *No Product type* / Secondary Insurance: AETNA MEDICARE SUPPLEMENT Prescription Coverage: Yes ([facility] insurance. Also uses [facility] when she needs right away and notthrough mail order.) Preferred Pharmacy: [id number] - [place], [place] - [address] [facility] [address] [address] [place] [id number] [facility] - [place], [place] - [address] [facility] [address] [facility] [address] Status: Patient is a : No Primary Care Provider: Harshal Godfrey MD [phone] Patient/Caregiver Goals of Treatment: to be able to return home- took 4 weeks off from work. Potential Needs for Transition of Care: home health care Agency Referrals: I have met with the patient to: ?? discuss discharge planning needs. ?? provide a list of Home Health Agencies / Durable Medical Equipment vendors which serve their preferred geographic area. ?? provided patient with [facility] Star Quality Rating handout. They have requested referrals to: [facility] [address] [place] [address] Note routed to a Carbon [employer] Coating Machine Setter who will communicate referrals to facilities and provide any required information. Transportation: no concerns Transportation Anticipated: family or friend will provide Concerns to be Addressed: discharge planning Assessment: Patient is admitted to cardiac surgery service for Post-Op AVR, asc patch repair, CABGx2. Plan: Will ask RS to send referral for VNA to above agency for discharge. A member of the Care Management team will continue to monitor progress, follow for continuity of care and assist with transition of care planning. Covering pager #[phone] for today. Op Note - Abdulkadir Raya MD - 03/30/2022 8:[address] [facility] SE[facility] OF CARDIAC SURGERY ?? OPERATIVE REPORT Case Date:??03/30/22 ?? PATIENT NAME:??Marcelle Albarran?? :??1950?? MR#: [id number] ?? REFERRING PHYSICIAN:??Dwayne Rachel MD ?? PRE-OPERATIVE DIAGNOSIS: Severe aortic stenosis??and coronary artery disease? POST-OPERATIVE DIAGNOSIS:??Same? PROCEDURE: ?? 1. Aortic valve replacement with??19mm Sherwood??inspiris??bioprosthetic valve 2. Coronary artery bypass grafting x??2??(PLUNKETT to??LAD, RSVG to??OM1)?? SURGEON: * Abdulkadir Raya MD - Primary * Konstantin Amado PA - Physician Golf Superintendent * Danuta Diaz PA - Physician Golf Superintendent * Nathaniel Larson MD - Assisting Attending ?? ANESTHESIA: General endotracheal ?? PRE-OPERATIVE EVALUATION: Marcelle Albarran??is a??72??y.o.??woman??with a history of??shortness of breath who was found to have and multi-vessel CAD. After work up, the decision was made to proceed with aortic valve replacement??and CABG??after a full discussion with the patient. ?? SURGICAL PRIORITY: Elective ?? FINDINGS: Severe with calcified,??tricuspid aortic valve Severe??CAD Calcified aortic root ?? PREPARATION: After informed consent was obtained, the patient was taken to the operating room and placed supine on the operating room table. Prophylactic antibiotics were administered. Pressure points were padded. Appropriate monitoring equipment, lines, and access were obtained by the anesthesia team prior to induction. General Anesthesia was induced. The patient was endotracheally intubated??at the site of their tracheostomy. The patient was positioned and their skin was prepped in the usual sterile fashion. The operative field was draped in the usual fashion. Surgical time-out was performed. ?? Bypass Graft Conduit Preparation A midline incision was created and a median sternotomy was performed. The left internal mammary artery was harvested using standard techniques and divided after administration of 300 units/kg of IV heparin. The chest wall was made hemostatic. A 24 fr jovana drain was placed in the left chest. Concomitantly, the??right??greater saphenous vein was harvested endoscopically and prepared for anastomosis. ?? Cardiopulmonary bypass: A retractor was placed and the heart suspended in a pericardial cradle. An activated clotting time exceeding 500 seconds was maintained throughout the duration of cardiopulmonary bypass. Using digital palpation and JAVY, the ascending aorta was carefully evaluated. There were no contraindications to asc ending aortic cross-clamp. Concentric purse string sutures were placed in the ascending aorta and this was cannulated with a??18??irish EOPA aortic cannula. Venous cannulation was accomplished using [facility] location with a two- staged cannula. Cardiopulmonary bypass was initiated. The patient'stemperature was cooled to 32??degrees celsius. Another purse string was placed in the ascending aorta and a standard, vented antegrade cardioplegia cannula was inserted. A heart basket retractor was placed as well.??An LV vent was placed in the right superior pulmonary vein. A retrograde cardioplegia cannula was also placed. The field was flooded with CO2. ?? Myocardial Protection: Aortic occlusion was performed using a single clamp. Cardioplegia was antegrade and retrograde delivered through the coronary sinus. Induction was performed with cold blood/crystalloid solution and high potassium. Maintenance was performed with cold blood/crystalloid solution and low potassium. Myocardial temperature fell to??13??degrees Centigrade. The heart was also cooled with topical iced saline.Quality of myocardial protection was excellent. Cardioplegia was maintained with retrograde cold blood cardioplegia at maximum of 20 minute intervals or with temperature rise. ?? OPERATIVE TECHNIQUE Technical details of the coronary artery bypass grafting The coronary arterial targets were inspected.??The LAD and OM1??were graftable targets. The PDA was no grafted due to the marginal stenosis of the RCA and the poor quality of the distal saphenous vein.The distal anastomosis to the??OM1??was completed first. After postioning the heart, the artery was opened and a reverse saphenous vein (RSV) was anastomosed to the artery using 7-0 prolene in a running fashion.??Next attention was turned to the aortic valve replacement (see below). Once the aortic valve replacement was performed, additional cardioplegia was delivered and the??proximal??OM1??anastomoses were??then completed in the standard fashion using 6-0 prolene in a running fashion. After additional cardioplegia, the distal anastomosis to the??LAD??was completed with an in-situ PLUNKETT using 8-0 prolene.? Technical details of the aortic valve replacement An aortotomy was performed. The aortic valve was inspected and found to be heavily calcified and??tricuspid. The ascending aorta was normal. The aortic root was calcified. The valve leaflets were excised and sent to pathology and the annulus was then irrigated copiously with normal saline. After sizing the annulus, a??19mm Sherwood??inspiris??bioprosthetic aortic valve was selected and sutured in place using 2-0 Ticron pledgeted mattress sutures. The valve was seated well in the annulus. The aortic root was heavily calcified. There were several areas where the aorta appeared thin due to debridement of intimal calcium from the aortic root. Therefore the decision was made to close the aortotomy with a piece of bovine pericardium. A medium piece of bovine pericardium was cut to cover the aortotomy. Using a running 4-0 prolene the bovine pericardium was sutured to the aortotomy and a piece of felt used on the outside for hemostasis. The patient was rewarmed to 36 degrees Celsius. The remaining portion of the CABG was performed as dictated above with the proximal anastomosis performed on the bovine pericardium.??The patient was placed in deep Trendelenburg position. The aortic root and left heart was then de-aired using standard maneuvers. After careful maneuvers to evacuate air, the cross clamp was removed, and normal sinus rhythm was restored. Temporary atrial and ventricular pacing wires were placed and tested. The retrograde cardioplegia catheter was removed, the purse string tied, and then secured with a 4-0 prolene. The LV vent was removed, the purse string tied, and then secured with a 4-0 prolene. ?? COMPLETION: The patient was weaned from cardiopulmonary bypass. The venous cannula was removed and the purse string secured. The venous cannulation site was reinforced with 4-0 Prolene suture. A test dose of protamine was administered. Once the patient was proven to tolerate this, the aortic cannula was removed and both purse strings were tied, secured with a 4-0 Prolene pledgeted suture, and the remainder of the protamine was administered. Cardiotomy suction was deactivated before 30% of protamine had been administered.The mediastinum was made hemostatic. All suture lines and cannulation sites were reexaminedand made hemostatic. Two mediastinal tubes were placed and the sternum closed with stainless steel cables. The subcutaneous tissue was irrigated with antibiotic irrigation and closed with absorbable suture as was the skin. All wounds were dressed in sterile fashion. All sponge, needle, and instrument counts were reported correct at the end of the case. ?? COMPLICATIONS: There were no technical difficulties ?? COMPLETION DETAIL:??Intra-op??JAVY showed preserved LVEF and no??major??central or paravalvular aortic insufficiency. ?? DISPOSITION: The patient was transported while intubated to the cardiovascular ICU in stable condition at the the completion of the procedure. ?? SPECIMENS: Aortic valve leaflets ?? DRAINS:??Two??straight mediastinal chest tubes??and one left jovana ?? SURGICAL CLOSURE: Primary closure - skin incision is completely closed without any wires, radha, drains, or other devices. ?? ATTESTATION STATEMENT:??I, Abdulkadir Raya, the attending cardiac surgeon, was scrubbed and present for the entire operative procedure, and performed the procedure without the assistance of a resident. There was no qualified resident available.? Attestation: Case Date: 03/30/2022 ABDULKADIR RAYA MD 04/09/2022 documented in this encounter Plan of Treatment Upcoming Encounters Date Type Specialty Care Team Description 08/21/2022 Scheduled View Only Sharon and Dameon Hernandez MD [facility] [place] [address] Oncology Nikky Pak FISHING LINE WINDING MACHINE OPERATOR [address] [place] [address] [place] [address] 08/21/2022 TH Visit (TeleHealth) Reddy Thompson Oncology [facility] DR DANGELO [place], [place] [address] (Wo rk) 08/21/2022 Infusion Hematology and Oncology 08/28/2022 Office Visit Hematology and Reddy Hernandez Oncology [facility] [address] [place], [place] [address] (Wo rk) 08/28/2022 Infusion Hematology and Oncology 09/11/2022 Office Visit Hematology and Reddy Hernandez MD [facility] [place] [address] [address] HEMATOLOGY AND [place], [place] [id number] 09/11/2022 Infusion Hematology and Oncology 09/18/2022 Office Visit Hematology and Nikky Pak, Oncology [address] HEMATOLOGY AND [place], [place] [id number] (Wo rk) 09/18/2022 Infusion Hematology and Oncology 03/10/2023 Office Visit Cardiology Ofelia Rubalcava MD [facility] [place] [address] (Wo rk) Scheduled Referrals Name Type Priority Associated Diagnoses Order S chedule Referral to Home Outpatient Referral Routine S/P AVR (aortic O rdered: Health valve replacement) 2 and aortoplasty S/P CABG x 2 Referral to Outpatient Referral Routine S/P AVR (aortic Order ed: Cardiac Rehab valve replacement) 04/08/20 22 and aortoplasty S/P CABG x 2 documented as of this encounter Procedures Procedure Name Priority Date/Time Associated Comments Diagnosis POCT GLUCOSE Routine 04/08/2022 11:58 Results for this AM EDT procedure are i n the results section. POCT GLUCOSE Routine 04/08/2022 7:40 Results for this AM EDT procedure are i n the results section. HC POTASSIUM Routine 04/08/2022 2:01 Results for this AM EDT procedure are i n the results section. POCT GLUCOSE Routine 04/07/2022 7:54 Results for this PM EDT procedure are i n the results section. POCT GLUCOSE Routine 04/07/2022 4:29 Results for this PM EDT procedure are i n the results section. POCT GLUCOSE Routine 04/07/2022 12:32 Results for this PM EDT procedure are i n the results section. XR CHEST PA AND LATERAL Routine 04/07/2022 5:42 R esults for this AM EDT procedure are i n the results section. BASIC METABOLIC PANEL Routine 04/07/2022 2:21 Res ults for this (NON-FASTING) AM EDT procedure are in the results section. POCT GLUCOSE Routine 04/07/2022 12:17 Results for this AM EDT procedure are i n the results section. POCT GLUCOSE Routine 04/06/2022 5:11 Results for this PM EDT procedure are i n the results section. POCT GLUCOSE Routine 04/06/2022 11:33 Results for this AM EDT procedure are i n the results section. HC POTASSIUM Routine 04/06/2022 10:01 Results for this AM EDT procedure are i n the results section. POCT GLUCOSE Routine 04/06/2022 7:50 Results for this AM EDT procedure are i n the results section. BASIC METABOLIC PANEL Routine 04/06/2022 2:33 Res ults for this (NON-FASTING) AM EDT procedure are in the results section. POCT GLUCOSE Routine 04/05/2022 10:33 Results for this PM EDT procedure are i n the results section. POCT GLUCOSE Routine 04/05/2022 4:41 Results for this PM EDT procedure are i n the results section. POCT GLUCOSE Routine 04/05/2022 11:19 Results for this AM EDT procedure are i n the results section. XR CHEST ONE VIEW Routine 04/05/2022 10:28 Result s for this AM EDT procedure are i n the results section. POCT GLUCOSE Routine 04/05/2022 7:45 Results for this AM EDT procedure are i n the results section. BASIC METABOLIC PANEL Routine 04/05/2022 2:10 Res ults for this (NON-FASTING) AM EDT procedure are in the results section. POCT GLUCOSE Routine 04/04/2022 4:45 Results for this PM EDT procedure are i n the results section. POCT GLUCOSE Routine 04/04/2022 12:36 Results for this PM EDT procedure are i n the results section. BASIC METABOLIC PANEL Routine 04/04/2022 8:00 Res ults for this (NON-FASTING) AM EDT procedure are in the results section. POCT GLUCOSE Routine 04/04/2022 7:56 Results for this AM EDT procedure are i n the results section. POCT GLUCOSE Routine 04/04/2022 7:54 Results for this AM EDT procedure are i n the results section. BASIC METABOLIC PANEL Routine 04/04/2022 12:45 Re sults for this (NON-FASTING) AM EDT procedure are in the results section. BASIC METABOLIC PANEL Routine 04/03/2022 4:16 Res ults for this (NON-FASTING) PM EDT procedure are in the results section. POCT GLUCOSE Routine 04/03/2022 3:55 Results for this PM EDT procedure are i n the results section. CHEST TUBE INSERTION Routine 04/03/2022 3:43 Resu lts for this PM EDT procedure are i n the results section. XR CHEST ONE VIEW Routine 04/03/2022 2:11 Results for this PM EDT procedure are i n the results section. POCT GLUCOSE Routine 04/03/2022 12:03 Results for this PM EDT procedure are i n the results section. POCT GLUCOSE Routine 04/03/2022 8:00 Results for this AM EDT procedure are i n the results section. BASIC METABOLIC PANEL Routine 04/03/2022 8:00 Res ults for this (NON-FASTING) AM EDT procedure are in the results section. COOX2 Routine 04/02/2022 11:45 Results for this PM EDT procedure are i n the results section. BASIC METABOLIC PANEL Routine 04/02/2022 11:45 Re sults for this (NON-FASTING) PM EDT procedure are in the results section. COOX2 Routine 04/02/2022 7:37 Results for this PM EDT procedure are i n the results section. HC POTASSIUM Routine 04/02/2022 7:30 Results for this PM EDT procedure are i n the results section. POCT GLUCOSE Routine 04/02/2022 5:51 Results for this PM EDT procedure are i n the results section. CHEST TUBE INSERTION Routine 04/02/2022 4:55 Resu lts for this PM EDT procedure are i n the results section. BASIC METABOLIC PANEL Routine 04/02/2022 4:54 Res ults for this (NON-FASTING) PM EDT procedure are in the results section. BLOOD GAS 2 ARTERIAL Routine 04/02/2022 4:38 Resu lts for this PM EDT procedure are i n the results section. POCT GLUCOSE Routine 04/02/2022 4:15 Results for this PM EDT procedure are i n the results section. ECHOCARDIOGRAM LMTD W Routine 04/02/2022 4:11 S/P AVR (aortic Results for this CONTRAST W LMTD SPEC PM EDT valve replacement) p rocedure are in DOPP COLOR DOPP and aortoplasty the resul ts section. COOX2 Routine 04/02/2022 4:01 Results for this PM EDT procedure are i n the results section. BLOOD GAS 2 ARTERIAL Routine 04/02/2022 2:48 Resu lts for this PM EDT procedure are i n the results section. DH INSERT PULMONARY Routine 04/02/2022 2:35 Resul ts for this ARTERY CATHETER PM EDT procedure ar e in the results section. COOX2 Routine 04/02/2022 2:17 Results for this PM EDT procedure are i n the results section. XR CHEST ONE VIEW Routine 04/02/2022 1:14 Results for this PM EDT procedure are i n the results section. POCT GLUCOSE Routine 04/02/2022 12:29 Results for this PM EDT procedure are i n the results section. HC POTASSIUM STAT 04/02/2022 11:40 Results for this AM EDT procedure are i n the results section. POCT GLUCOSE Routine 04/02/2022 8:11 Results for this AM EDT procedure are i n the results section. POCT GLUCOSE Routine 04/02/2022 6:51 Results for this AM EDT procedure are i n the results section. XR CHEST PA AND LATERAL Routine 04/02/2022 4:23 R esults for this AM EDT procedure are i n the results section. HEMOGRAM Routine 04/02/2022 12:35 Results for this AM EDT procedure are i n the results section. DIFFERENTIAL, AUTOMATED Routine 04/02/2022 12:35 Results for this AM EDT procedure are i n the results section. HC CBC,PLT & AUTO DIFF Routine 04/02/2022 12:35 AM EDT BASIC METABOLIC PANEL Routine 04/02/2022 12:35 Re sults for this (NON-FASTING) AM EDT procedure are in the results section. POCT GLUCOSE Routine 04/01/2022 5:29 Results for this PM EDT procedure are i n the results section. BASIC METABOLIC PANEL Routine 04/01/2022 2:00 Res ults for this (NON-FASTING) AM EDT procedure are in the results section. HC POTASSIUM Routine 03/31/2022 10:00 Results for this PM EDT procedure are i n the results section. POCT GLUCOSE Routine 03/31/2022 9:58 Results for this PM EDT procedure are i n the results section. POCT GLUCOSE Routine 03/31/2022 8:34 Results for this PM EDT procedure are i n the results section. POCT GLUCOSE Routine 03/31/2022 6:57 Results for this PM EDT procedure are i n the results section. POCT GLUCOSE Routine 03/31/2022 5:06 Results for this PM EDT procedure are i n the results section. HC POTASSIUM Routine 03/31/2022 5:00 Results for this PM EDT procedure are i n the results section. BASIC METABOLIC PANEL Routine 03/31/2022 5:00 Res ults for this (NON-FASTING) PM EDT procedure are in the results section. POCT GLUCOSE Routine 03/31/2022 3:33 Results for this PM EDT procedure are i n the results section. POCT GLUCOSE Routine 03/31/2022 1:04 Results for this PM EDT procedure are i n the results section. POCT GLUCOSE Routine 03/31/2022 11:45 Results for this AM EDT procedure are i n the results section. POCT GLUCOSE Routine 03/31/2022 11:15 Results for this AM EDT procedure are i n the results section. POCT GLUCOSE Routine 03/31/2022 10:02 Results for this AM EDT procedure are i n the results section. POCT GLUCOSE Routine 03/31/2022 9:07 Results for this AM EDT procedure are i n the results section. POCT GLUCOSE Routine 03/31/2022 7:57 Results for this AM EDT procedure are i n the results section. EXTUBATE Routine 03/31/2022 6:39 AM EDT BLOOD GAS 2 ARTERIAL Routine 03/31/2022 6:28 Resu lts for this AM EDT procedure are i n the results section. POCT GLUCOSE Routine 03/31/2022 5:32 Results for this AM EDT procedure are i n the results section. POCT GLUCOSE Routine 03/31/2022 5:01 Results for this AM EDT procedure are i n the results section. BLOOD GAS 2 ARTERIAL Routine 03/31/2022 4:02 Resu lts for this AM EDT procedure are i n the results section. POCT GLUCOSE Routine 03/31/2022 3:58 Results for this AM EDT procedure are i n the results section. POCT GLUCOSE Routine 03/31/2022 2:59 Results for this AM EDT procedure are i n the results section. HEMOGRAM Routine 03/31/2022 2:15 Results for this AM EDT procedure are i n the results section. DIFFERENTIAL, AUTOMATED Routine 03/31/2022 2:15 R esults for this AM EDT procedure are i n the results section. HC CBC,PLT & AUTO DIFF Routine 03/31/2022 2:15 AM EDT HC TROPONIN T Routine 03/31/2022 2:15 Results for this AM EDT procedure are i n the results section. BASIC METABOLIC PANEL Routine 03/31/2022 2:15 Res ults for this (NON-FASTING) AM EDT procedure are in the results section. POCT GLUCOSE Routine 03/31/2022 1:56 Results for this AM EDT procedure are i n the results section. POCT GLUCOSE Routine 03/31/2022 12:57 Results for this AM EDT procedure are i n the results section. POCT GLUCOSE Routine 03/30/2022 11:58 Results for this PM EDT procedure are i n the results section. POCT GLUCOSE Routine 03/30/2022 11:00 Results for this PM EDT procedure are i n the results section. POCT GLUCOSE Routine 03/30/2022 10:13 Results for this PM EDT procedure are i n the results section. BLOOD GAS 2 ARTERIAL Routine 03/30/2022 10:03 Res ults for this PM EDT procedure are i n the results section. POCT GLUCOSE Routine 03/30/2022 9:25 Results for this PM EDT procedure are i n the results section. LUNG RECRUITMENT Routine 03/30/2022 8:36 MANEUVER PM EDT BLOOD GAS 2 ARTERIAL Routine 03/30/2022 8:27 Resu lts for this PM EDT procedure are i n the results section. POCT GLUCOSE Routine 03/30/2022 8:16 Results for this PM EDT procedure are i n the results section. HC HEMOGLOBIN, BLOOD Routine 03/30/2022 8:15 Resu lts for this PM EDT procedure are i n the results section. HC POTASSIUM Routine 03/30/2022 8:15 Results for this PM EDT procedure are i n the results section. BLOOD GAS 2 ARTERIAL Routine 03/30/2022 7:07 Resu lts for this PM EDT procedure are i n the results section. BLOOD GAS 2 ARTERIAL Routine 03/30/2022 6:11 Resu lts for this PM EDT procedure are i n the results section. XR CHEST ONE VIEW STAT 03/30/2022 5:21 Results for this PM EDT procedure are i n the results section. BLOOD GAS 2 ARTERIAL Routine 03/30/2022 5:09 Resu lts for this PM EDT procedure are i n the results section. EKG 12-LEAD STAT 03/30/2022 4:54 S/P AVR (aortic Results f or this PM EDT valve replacement) procedure are in and aortoplasty and the resu lts CABG section. PREPARE CRYOPRECIPITATE STAT 03/30/2022 3:20 R esults for this PM EDT procedure are i n the results section. BLOOD GAS 2 ARTERIAL Routine 03/30/2022 2:52 Resu lts for this PM EDT procedure are i n the results section. HC HEMOGRAM STAT 03/30/2022 2:50 Results for this PM EDT procedure are i n the results section. HC PARTIAL STAT 03/30/2022 2:50 Results for this THROMBOPLASTIN TIME PM EDT procedur e are in the results section. HC PROTHROMBIN TIME STAT 03/30/2022 2:50 Resul ts for this PM EDT procedure are i n the results section. HC FIBRINOGEN TITER STAT 03/30/2022 2:50 Resul ts for this PM EDT procedure are i n the results section. HC PLATELET COUNT STAT 03/30/2022 2:50 Results for this PM EDT procedure are i n the results section. BLOOD GAS 2 ARTERIAL Routine 03/30/2022 2:22 Resu lts for this PM EDT procedure are i n the results section. PREPARE THAWED PLASMA STAT 03/30/2022 2:10 Res ults for this PM EDT procedure are i n the results section. HC HEMOGLOBIN, BLOOD STAT 03/30/2022 1:52 Resu lts for this PM EDT procedure are i n the results section. HC FIBRINOGEN TITER STAT 03/30/2022 1:52 Resul ts for this PM EDT procedure are i n the results section. HC PLATELET COUNT STAT 03/30/2022 1:52 Results for this PM EDT procedure are i n the results section. BLOOD GAS 2 ARTERIAL Routine 03/30/2022 1:51 Resu lts for this PM EDT procedure are i n the results section. BLOOD GAS 2 VENOUS Routine 03/30/2022 1:11 Result s for this PM EDT procedure are i n the results section. BLOOD GAS 2 ARTERIAL Routine 03/30/2022 1:08 Resu lts for this PM EDT procedure are i n the results section. BLOOD GAS 2 ARTERIAL Routine 03/30/2022 12:31 Res ults for this PM EDT procedure are i n the results section. BLOOD GAS 2 ARTERIAL Routine 03/30/2022 12:05 Res ults for this PM EDT procedure are i n the results section. PREPARE PLATELETS, STAT 03/30/2022 11:45 Resul ts for this APHERESIS AM EDT procedure are i n the results section. PREPARE CRYOPRECIPITATE STAT 03/30/2022 11:45 Results for this AM EDT procedure are i n the results section. BLOOD GAS 2 ARTERIAL Routine 03/30/2022 11:32 Res ults for this AM EDT procedure are i n the results section. BLOOD GAS 2 VENOUS Routine 03/30/2022 10:55 Resul ts for this AM EDT procedure are i n the results section. BLOOD GAS 2 ARTERIAL Routine 03/30/2022 10:53 Res ults for this AM EDT procedure are i n the results section. SURGICAL PATHOLOGY Routine 03/30/2022 10:52 Resul ts for this REPORT AM EDT procedure are i n the results section. SPECIMEN TO PATHOLOGY Routine 03/30/2022 10:52 Re sults for this AM EDT procedure are i n the results section. BLOOD GAS 2 ARTERIAL Routine 03/30/2022 10:33 Res ults for this AM EDT procedure are i n the results section. BLOOD GAS 2 VENOUS Routine 03/30/2022 10:24 Resul ts for this AM EDT procedure are i n the results section. BLOOD GAS 2 ARTERIAL Routine 03/30/2022 10:22 Res ults for this AM EDT procedure are i n the results section. PREPARE COAG FACTORS STAT 03/30/2022 9:50 Resu lts for this (NON-HEMOPHILIA) AM EDT procedure a re in the results section. BLOOD GAS 2 ARTERIAL Routine 03/30/2022 8:27 Resu lts for this AM EDT procedure are i n the results section. REPAIR, PATCH, AORTIC 03/30/2022 7:43 CAD/ ROOT (WRVU 5.94) AM EDT ENDOSCOPIC HARVEST 03/30/2022 7:43 CAD/ VEIN(S) FOR CABG (WRVU AM EDT 0.31) @CABG, VENOUS & 03/30/2022 7:43 CAD/ ARTERIAL GRAFT;SINGLE AM EDT VEIN GRAFT (WRVU 3.61) @CABG, USING ARTERIAL 03/30/2022 7:43 CAD/ GRAFT;SINGLE ARTERIAL AM EDT GRAFT (WRVU 33.75) @REPLACE AORTIC VALVE, 03/30/2022 7:43 CAD/ OPEN, W\CPB, AM EDT W\PROSTHETIC VALVE (WRVU 41.32) TRANSESOPHAGEAL Routine 03/30/2022 7:13 Aortic valve Results f or this ECHOCARDIOGRAM IN THE AM EDT stenosis, etiology procedure are in OR of cardiac valve the results disease unspecified section. PREPARE RBC STAT 03/30/2022 6:35 Results for this AM EDT procedure are i n the results section. POCT GLUCOSE Routine 03/30/2022 6:28 Results for this AM EDT procedure are i n the results section. LAB SCAN 03/30/2022 12:00 AM EDT LAB SCAN 03/30/2022 12:00 AM EDT IMPLANTABLE DEVICES 03/30/2022 12:00 SCAN AM EDT documented in this encounter Results POCT Glucose (04/08/2022 11:58 AM EDT) athologist Signature POC Glucose 98 65 - 199 [place] mg/dL [facility] Comment: Supplemental ranges: <140 mg/dL before meals <180 mg/dL all other times of the day Specimen Anatomical Collection Method Collection Time Receive d Time (Source) Location / / Volume Laterality Blood 04/08/2022 11:58 04/08/2022 AM EDT 11:58 AM EDT Abdulkadir Raya MD POINT OF CARE TEST ORDERABLE S Performing Organization Address City/State/ZIP Code Phon e Number [address] POCT Glucose (04/08/2022 7:40 AM EDT) athologist Signature POC Glucose 186 65 - 199 [facility] Comment: Supplemental ranges: <140 mg/dL before meals <180 mg/dL all other times of the day Specimen Anatomical Collection Method Collection Time Receive d Time (Source) Location / / Volume Laterality Blood 04/08/2022 7:40 AM 7:40 EDT AM EDT Abdulkadir Raya MD POINT OF CARE TEST ORDERABLE S Performing Organization Address City/[facility]/ZIP [place] [address] Potassium (04/08/2022 2:01 AM EDT) athologist Signature Potassium 3.9 3.5 - 5.0 [facility] mmol/L [facility] Comment: Please note: ??Patients with WBC >100,00 0 may have falsely elevated Potassium levels. ??For accurate Potassium quantif ication in these patients send serum separator tube (gold top) for subsequent determinations. ??Contact the Clinical Chemistry Laboratory if there are any qu estions. Specimen Anatomical Collection Method Collection Time Receive d Time (Source) Location / / Volume Laterality Blood 04/08/2022 2:01 AM 2 2:07 EDT AM EDT Resulting Agency Comment Spec In Lab Abdulkadir Raya MD CHEMISTRY ORDERABLES Performing Organization Address City/[facility]/ZIP [place] [address] POCT Glucose (04/07/2022 7:54 PM EDT) athologist Signature POC Glucose 126 65 - 199 [place] mg/dL [facility] Comment: Supplemental ranges: <140 mg/dL before meals <180 mg/dL all other times of the day Specimen Anatomical Collection Method Collection Time Receive d Time (Source) Location / / Volume Laterality Blood 04/07/2022 7:54 PM 2 7:54 EDT PM EDT Abdulkadir Raya MD POINT OF CARE TEST ORDERABLE S Performing Organization Address City/State/ZIP Code Phon e Number [address] POCT Glucose (04/07/2022 4:29 PM EDT) athologist Signature POC Glucose 183 65 - 199 [place] mg/dL [facility] Comment: Supplemental ranges: <140 mg/dL before meals <180 mg/dL all other times of the day Specimen Anatomical Collection Method Collection Time Receive d Time (Source) Location / / Volume Laterality Blood 04/07/2022 4:29 PM 2 4:29 EDT PM EDT Abdulkadir Raya MD POINT OF CARE TEST ORDERABLE S Performing Organization Address City/State/ZIP [place] [address] POCT Glucose (04/07/2022 12:32 PM EDT) athologist Signature POC Glucose 145 65 - 199 [place] mg/dL [facility] Comment: Supplemental ranges: <140 mg/dL before meals <180 mg/dL all other times of the day Specimen Anatomical Collection Method Collection Time Receive d Time (Source) Location / / Volume Laterality Blood 04/07/2022 12:32 04/07/2022 PM EDT 12:32 PM EDT Abdulkadir Raya MD POINT OF CARE TEST ORDERABLE S Performing Organization Address City/State/ZIP [place] [address] XR Chest PA & Lateral (Generic) (04/07/2022 5:42 AM EDT) Anatomical Region Laterality Modality Chest N/A Digital Radiography Specimen (Source) Anatomical Location Collection Method / Collectio n Time Received Time / Laterality Volume Impressions 04/07/2022 7:52 AM EDT 1. ??Left hydropneumothorax (trace pneum othorax and small pleural effusion). 2. ??The lung volumes are decreased, whi ch accentuates the pulmonary vascular markings and cardiac silhouette. 3. ??Asymmetric left pulmonary edema. 4. ??Trace right pleural effusion. Thank you for letting us participate in the care of this patient. ??If you are a health care provider and have any questi ons regarding this report, please contact the number below. ??For patients who have questions please contact the health landcare facilitator that requested your imaging first. ? Electronically signed by: Chuck Duckworth DO, [facility] ([phone]), at 04/07/2022 7:52 AM Narrative 04/07/2022 7:52 AM EDT EXAMINATION: XR CHEST PA AND LATERAL (GENERIC) CLINICAL HISTORY: 72-year-old female sta tus post aortic valve replacement and coronary artery bypass graft. ?? TECHNIQUE: PA and lateral views of the c hest COMPARISON: Comparison is made to multip le prior chest radiograph examinations, the most recent which is dated April 05, 2022. ??Correlation is made to CT of the chest dated March 23, 2022. FINDINGS: Multiple monitoring devices overlie the patient. The lung volumes are decreased, which ac centuates the pulmonary vascular markings and cardiac silhouette. ??There is asymmetric prominence of the interstitial markings within the left christy ng. ??There is a small left pleural effusion. ??There is a trace right pleur al effusion. ??The previously noted bilateral pleural catheters have been re moved. ??There is a trace left apical pneumothorax within air-fluid level. The trachea is midline. ??Hilar structur es are within normal limits but unchanged. The cardiomediastinal contours are uncha nged. ??There is been prior median sternotomy, coronary artery bypass graft , and aortic valve replacement. ??There is been interval removal of the right in ternal jugular [place] catheter. There is dense calcification of the mitr al annulus. ??Epicardial fat pad on the left. Visualized structures within the superio r abdomen. There are degenerative changes of the vi sualized spine. ??There is exaggerated thoracic kyphosis. ??There is endplate s clerosis and osteophyte formation. ??There are mild arthritic changes of the bilate ral glenohumeral joints. Procedure Note Chuck Duckworth, DO - 04/07/2022Formatti ng of this note might be different from the original. EXAMINATION: XR CHEST PA AND LATERAL (Point [place]) CLINICAL HISTORY: 72-year-old female sta tus post aortic valve replacement and coronary artery bypass graft. TECHNIQUE: PA and lateral views of the c hest COMPARISON: Comparison is made to multip le prior chest radiograph examinations, the most recent which is dated April 05, 2022. Correlation is made to CT of the chest dated March 23, 2022. FINDINGS: Multiple monitoring devices overlie the patient. The lung volumes are decreased, which ac centuates the pulmonary vascular markings and cardiac silhouette. There i s asymmetric prominence of the interstitial markings within the left christy ng. There is a small left pleural effusion. There is a trace right pleural effusion. The previously noted bilateral pleural catheters have been re moved. There is a trace left apical pneumothorax within air-fluid level. The trachea is midline. Hilar structures are within normal limits but unchanged. The cardiomediastinal contours are uncha nged. There is been prior median sternotomy, coronary artery bypass graft , and aortic valve replacement. There is been interval removal of the right in ternal jugular [place] catheter. There is dense calcification of the mitr al annulus. Epicardial fat pad on the left. Visualized structures within the superio r abdomen. There are degenerative changes of the vi sualized spine. There is exaggerated thoracic kyphosis. There is endplate scl erosis and osteophyte formation. There are mild arthritic changes of the bilate ral glenohumeral joints. IMPRESSION 1. Left hydropneumothorax (trace pneumot horax and small pleural effusion). 2. The lung volumes are decreased, which accentuates the pulmonary vascular markings and cardiac silhouette. 3. Asymmetric left pulmonary edema. 4. Trace right pleural effusion. Thank you for letting us participate in the care of this patient. If you are a health care provider and have any questi ons regarding this report, please contact the number below. For patients w ho have questions please contact the health landcare facilitator that requested your imaging first. Abdulkadir Raya MD IMG DX ORDERABLES (ABNORMAL) Basic Metabolic Panel (non-fasting) (04/07/2022 2:21 AM EDT) P athologist Signature Glucose Lvl 120 65 - 199 [facility] mg/dL [facility] Comment: Diabetes: >=200 mg/dL plus symp toms BUN 29 (H) 8 - 18 mg/dL [facility] Creatinine 0.76 0.70 - 1.20 mg/dL [facility] Sodium 140 135 - 145 mmol/L [facility] Potassium 4.3 3.5 - 5.0 mmol/L [facility] Comment: Please note: ??Patients with WBC >100,00 0 may have falsely elevated Potassium levels. ??For accurate Potassium quantif ication in these patients send serum separator tube (gold top) for subsequent determinations. ??Contact the Clinical Chemistry Laboratory if there are any qu estions. Chloride 102 98 - 107 mmol/L [facility] CO2 31 22 - 31 mmol/L [facility] Anion Gap 7 5 - 15 mmol/L [facility] Calcium 8.2 (L) 8.5 - 10.5 mg/dL [facility] Estimated GFR 84 >=60 mL/min/1.73 m?? [facility] [...] (Source) Location / / Volume Laterality Blood 04/07/2022 2:21 AM 2:30 EDT AM EDT Resulting Agency Comment Spec In Lab Vesna Trent APRN CHEMISTRY ORDERABLES Performing Organization Address City/State/ZIP Code Phon e Number [address] POCT Glucose (04/07/2022 12:17 AM EDT) athologist Signature POC Glucose 122 65 - 199 [facility] mg/dL [facility] Comment: Supplemental ranges: <140 mg/dL before meals <180 mg/dL all other times of the day Specimen Anatomical Collection Method Collection Time Receive d Time (Source) Location / / Volume Laterality Blood 04/07/2022 12:17 04/07/2022 AM EDT 12:17 AM EDT Abdulkadir Raya MD POINT OF CARE TEST ORDERABLE S Performing Organization Address City/State/ZIP [place] [address] POCT Glucose (04/06/2022 5:11 PM EDT) athologist Signature POC Glucose 126 65 - 199 [facility] Comment: Supplemental ranges: <140 mg/dL before meals <180 mg/dL all other times of the day Specimen Anatomical Collection Method Collection Time Receive d Time (Source) Location / / Volume Laterality Blood 04/06/2022 5:11 PM 5:11 EDT PM EDT Abdulkadir Raya MD POINT OF CARE TEST ORDERABLE S Performing Organization Address City/State/ZIP Code Phon e Number [address] POCT Glucose (04/06/2022 11:33 AM EDT) athologist Signature POC Glucose 192 65 - 199 [place] mg/dL [facility] Comment: Supplemental ranges: <140 mg/dL before meals <180 mg/dL all other times of the day Specimen Anatomical Collection Method Collection Time Receive d Time (Source) Location / / Volume Laterality Blood 04/06/2022 11:33 04/06/2022 AM EDT 11:33 AM EDT Abdulkadir Raya MD POINT OF CARE TEST ORDERABLE S Performing Organization Address City/[facility]/ZIP [place] [address] Potassium (04/06/2022 10:01 AM EDT) athologist Signature Potassium 4.2 3.5 - 5.0 [facility] Comment: Please note: ??Patients with WBC >100,00 0 may have falsely elevated Potassium levels. ??For accurate Potassium quantif ication in these patients send serum separator tube (gold top) for subsequent determinations. ??Contact the Clinical Chemistry Laboratory if there are any qu estions. Specimen Anatomical Collection Method Collection Time Receive d Time (Source) Location / / Volume Laterality Blood 04/06/2022 10:01 04/06/2022 AM EDT 10:01 AM EDT Resulting Agency Comment Spec In Lab Abdulkadir Raya MD CHEMISTRY ORDERABLES Performing Organization Address City/[facility]/ZIP Code Phon e Number [address] POCT Glucose (04/06/2022 7:50 AM EDT) athologist Signature POC Glucose 118 65 - 199 [place] mg/dL [facility] Comment: Supplemental ranges: <140 mg/dL before meals <180 mg/dL all other times of the day Specimen Anatomical Collection Method Collection Time Receive d Time (Source) Location / / Volume Laterality Blood 04/06/2022 7:50 AM 7:50 EDT AM EDT Abdulkadir Raya MD POINT OF CARE TEST ORDERABLE S Performing Organization Address City/State/ZIP Code Phon e Number [facility] [place] [address] (ABNORMAL) Basic Metabolic Panel (non-fasting) (04/06/2022 2:33 AM EDT) P athologist Signature Glucose Lvl 128 65 - 199 [facility] mg/dL [facility] Comment: Diabetes: >=200 mg/dL plus symp toms BUN 30 (H) 8 - 18 mg/dL [facility] Creatinine 0.80 0.70 - 1.20 mg/dL [facility] Sodium 142 135 - 145 mmol/L [facility] Potassium 3.8 3.5 - 5.0 mmol/L [facility] Comment: Please note: ??Patients with WBC >100,00 0 may have falsely elevated Potassium levels. ??For accurate Potassium quantif ication in these patients send serum separator tube (gold top) for subsequent determinations. ??Contact the Clinical Chemistry Laboratory if there are any qu estions. Chloride 103 98 - 107 mmol/L [facility] CO2 31 22 - 31 mmol/L [facility] Anion Gap 8 5 - 15 mmol/L [facility] Calcium 7.7 (L) 8.5 - 10.5 mg/dL [facility] Estimated GFR 79 >=60 mL/min/1.73 m?? [facility] [...] (Source) Location / / Volume Laterality Blood 04/06/2022 2:33 AM 2 2:37 EDT AM EDT Resulting Agency Comment Spec In Lab Vesna Trent APRN CHEMISTRY ORDERABLES Performing Organization Address City/State/ZIP Code Phon e Number [address] POCT Glucose (04/05/2022 10:33 PM EDT) athologist Signature POC Glucose 121 65 - 199 [place] mg/dL [facility] Comment: Supplemental ranges: <140 mg/dL before meals <180 mg/dL all other times of the day Specimen Anatomical Collection Method Collection Time Receive d Time (Source) Location / / Volume Laterality Blood 04/05/2022 10:33 04/05/2022 PM EDT 10:33 PM EDT Abdulkadir Raya MD POINT OF CARE TEST ORDERABLE S Performing Organization Address City/State/ZIP Code Phon e Number [address] POCT Glucose (04/05/2022 4:41 PM EDT) athologist Signature POC Glucose 143 65 - 199 [place] mg/dL [facility] Comment: Supplemental ranges: <140 mg/dL before meals <180 mg/dL all other times of the day Specimen Anatomical Collection Method Collection Time Receive d Time (Source) Location / / Volume Laterality Blood 04/05/2022 4:41 PM 2 4:41 EDT PM EDT Abdulkadir Raya MD POINT OF CARE TEST ORDERABLE S Performing Organization Address City/[facility]/ZIP Code Phon e Number [address] POCT Glucose (04/05/2022 11:19 AM EDT) athologist Signature POC Glucose 169 65 - 199 [place] mg/dL [facility] Comment: Supplemental ranges: <140 mg/dL before meals <180 mg/dL all other times of the day Specimen Anatomical Collection Method Collection Time Receive d Time (Source) Location / / Volume Laterality Blood 04/05/2022 11:19 04/05/2022 AM EDT 11:19 AM EDT Abdulkadir Raya MD POINT OF CARE TEST ORDERABLE S Performing Organization Address City/State/ZIP Code Phon e Number [place] [id number] XR Chest One View (04/05/2022 10:28 AM EDT) Anatomical Region Laterality Modality Chest N/A Digital Radiography Specimen (Source) Anatomical Location Collection Method / Collectio n Time Received Time / Laterality Volume Impressions 04/05/2022 11:26 AM EDT No pneumothorax status post pigtail chest tube removal. Trace pleural effusions and low lung vol umes. Thank you for letting us participate in the care of this patient. ??If you are a health care provider and have any questi ons regarding this report, please contact the number below. ??For patients who have questions please contact the health landcare facilitator that requested your imaging first. ? Narrative 04/05/2022 11:26 AM EDT EXAMINATION: XR CHEST ONE VIEW CLINICAL HISTORY: s/p right pigtail ches t tube removal TECHNIQUE: 1 view of the chest COMPARISON: April 03, 2022 FINDINGS: Interval removal of bilateral pleural pi gtail catheters. Right internal jugular access retains do uble curve morphology at the neck which may reflect change in the anteroposterio r direction. The tip of the [place] catheter is in the right main pulmonary artery. No radiographic evident pneumothorax. Tr arash pleural effusions. The low lung volumes are stable. No consolidation. Ca rdiac mediastinal silhouette is stable. Midline surrounding cables are intact. Procedure Note Emilee Marshall MD - 04/05/2022 EXAMINATION: XR CHEST ONE VIEW CLINICAL HISTORY: s/p right pigtail ches t tube removal TECHNIQUE: 1 view of the chest COMPARISON: April 03, 2022 FINDINGS: Interval removal of bilateral pleural pi gtail catheters. Right internal jugular access retains do uble curve morphology at the neck which may reflect change in the anteroposterio r direction. The tip of the [place] catheter is in the right main pulmonary artery. No radiographic evident pneumothorax. Tr arash pleural effusions. The low lung volumes are stable. No consolidation. Ca rdiac mediastinal silhouette is stable. Midline surrounding cables are intact. IMPRESSION No pneumothorax status post pigtail ches t tube removal. Trace pleural effusions and low lung vol umes. Thank you for letting us participate in the care of this patient. If you are a health care provider and have any questi ons regarding this report, please contact the number below. For patients w ho have questions please contact the health landcare facilitator that requested your imaging first. Abdulkadir Raya MD IMG DX ORDERABLES POCT Glucose (04/05/2022 7:45 AM EDT) athologist Signature POC Glucose 165 65 - 199 [facility] mg/dL [facility] Comment: Supplemental ranges: <140 mg/dL before meals <180 mg/dL all other times of the day Specimen Anatomical Collection Method Collection Time Receive d Time (Source) Location / / Volume Laterality Blood 04/05/2022 7:45 AM 7:45 EDT AM EDT Abdulkadir Raya MD POINT OF CARE TEST ORDERABLE S Performing Organization Address City/State/ZIP [place] [address] (ABNORMAL) Basic Metabolic Panel (non-fasting) (04/05/2022 2:10 AM EDT) P athologist Signature Glucose Lvl 137 65 - 199 [facility] mg/dL [facility] Comment: Diabetes: >=200 mg/dL plus symp toms BUN 35 (H) 8 - 18 mg/dL [facility] Creatinine 0.71 0.70 - 1.20 mg/dL [facility] Sodium 138 135 - 145 mmol/L [facility] Potassium 4.0 3.5 - 5.0 mmol/L [facility] Comment: Please note: ??Patients with WBC >100,00 0 may have falsely elevated Potassium levels. ??For accurate Potassium quantif ication in these patients send serum separator tube (gold top) for subsequent determinations. ??Contact the Clinical Chemistry Laboratory if there are any qu estions. Chloride 102 98 - 107 mmol/L [facility] CO2 28 22 - 31 mmol/L [facility] Anion Gap 8 5 - 15 mmol/L [facility] Calcium 7.6 (L) 8.5 - 10.5 mg/dL [facility] Estimated GFR 91 >=60 mL/min/1.73 m?? [facility] [...] (Source) Location / / Volume Laterality Blood 04/05/2022 2:10 AM 2:15 EDT AM EDT Resulting Agency Comment Spec In Lab Vesna Trent APRN CHEMISTRY ORDERABLES Performing Organization Address City/State/ZIP [place] [address] POCT Glucose (04/04/2022 4:45 PM EDT) athologist Signature POC Glucose 161 65 - 199 [facility] [place] mg/dL [facility] Comment: Supplemental ranges: <140 mg/dL before meals <180 mg/dL all other times of the day Specimen Anatomical Collection Method Collection Time Receive d Time (Source) Location / / Volume Laterality Blood 04/04/2022 4:45 PM 4:45 EDT PM EDT Abdulkadir Raya MD POINT OF CARE TEST ORDERABLE S Performing Organization Address City/State/ZIP Code Phon e Number [address] POCT Glucose (04/04/2022 12:36 PM EDT) athologist Signature POC Glucose 179 65 - 199 [facility] Comment: Supplemental ranges: <140 mg/dL before meals <180 mg/dL all other times of the day Specimen Anatomical Collection Method Collection Time Receive d Time (Source) Location / / Volume Laterality Blood 04/04/2022 12:36 04/04/2022 PM EDT 12:36 PM EDT Abdulkadir Raya MD POINT OF CARE TEST ORDERABLE S Performing Organization Address City/State/ZIP [place] [address] (ABNORMAL) Basic Metabolic Panel (non-fasting) (04/04/2022 8:00 AM EDT) athologist Signature Glucose Lvl 148 65 - 199 [facility] Comment: Diabetes: >=200 mg/dL plus symp toms BUN 40 (H) 8 - 18 mg/dL [facility] Creatinine 0.78 0.70 - 1.20 mg/dL [facility] Sodium 139 135 - 145 mmol/L [facility] Potassium 4.6 3.5 - 5.0 mmol/L [facility] Comment: Please note: ??Patients with WBC >100,00 0 may have falsely elevated Potassium levels. ??For accurate Potassium quantif ication in these patients send serum separator tube (gold top) for subsequent determinations. ??Contact the Clinical Chemistry Laboratory if there are any qu estions. Chloride 104 98 - 107 mmol/L [facility] CO2 27 22 - 31 mmol/L [facility] Anion Gap 8 5 - 15 mmol/L [facility] Calcium 7.8 (L) 8.5 - 10.5 mg/dL [facility] Estimated GFR 81 >=60 mL/min/1.73 m?? [facility] [...] (Source) Location / / Volume Laterality Blood 04/04/2022 8:00 AM 2 8:13 EDT AM EDT Resulting Agency Comment Spec In Lab Olena Loya MD CHEMISTRY ORDERABLES Performing Organization Address City/State/Z[place] [address] POCT Glucose (04/04/2022 7:56 AM EDT) P athologist Signature POC Glucose 146 65 - 199 [facility] mg/dL [facility] Comment: Supplemental ranges: <140 mg/dL before meals <180 mg/dL all other times of the day Specimen Anatomical Collection Method Collection Time Receive d Time (Source) Location / / Volume Laterality Blood 04/04/2022 7:56 AM 2 7:56 EDT AM EDT Abdulkadir Raya MD POINT OF CARE TEST ORDERABLE S Performing Organization Address City/State/ZIP [place] [address] (ABNORMAL) POCT Glucose (04/04/2022 7:54 AM EDT) athologist Signature POC Glucose 52 65 - 199 [facility] Comment: Supplemental ranges: <140 mg/dL before meals <180 mg/dL all other times of the day Specimen Anatomical Collection Method Collection Time Receive d Time (Source) Location / / Volume Laterality Blood 04/04/2022 7:54 AM 7:54 EDT AM EDT Abdulkadir Raya MD POINT OF CARE TEST ORDERABLE S Performing Organization Address City/State/ZIP [place] [address] (ABNORMAL) Basic Metabolic Panel (non-fasting) (04/04/2022 12:45 AM EDT) athologist Signature Glucose Lvl 119 65 - 199 [facility] Comment: Diabetes: >=200 mg/dL plus symp toms BUN 46 (H) 8 - 18 mg/dL [facility] Creatinine 0.92 0.70 - 1.20 mg/dL [facility] Sodium 139 135 - 145 mmol/L [facility] Potassium 4.3 3.5 - 5.0 mmol/L [facility] Comment: Please note: ??Patients with WBC >100,00 0 may have falsely elevated Potassium levels. ??For accurate Potassium quantif ication in these patients send serum separator tube (gold top) for subsequent determinations. ??Contact the Clinical Chemistry Laboratory if there are any qu estions. Chloride 104 98 - 107 mmol/L [facility] CO2 27 22 - 31 mmol/L [facility] Anion Gap 8 5 - 15 mmol/L [facility] Calcium 7.6 (L) 8.5 - 10.5 mg/dL [facility] Estimated GFR 67 >=60 mL/min/1.73 m?? [facility] [...] (Source) Location / / Volume Laterality Blood 04/04/2022 12:45 04/04/2022 AM EDT 12:51 AM EDT Resulting Agency Comment Spec In Lab Vesna Trent APRN CHEMISTRY ORDERABLES Performing Organization Address City/State/ZIP [place] [address] (ABNORMAL) Basic Metabolic Panel (non-fasting) (04/03/2022 4:16 PM EDT) P athologist Signature Glucose Lvl 159 65 - 199 [facility] mg/dL [facility] Comment: Diabetes: >=200 mg/dL plus symp toms BUN 50 (H) 8 - 18 mg/dL [facility] Creatinine 0.97 0.70 - 1.20 mg/dL [facility] Sodium 137 135 - 145 mmol/L [facility] Potassium 4.6 3.5 - 5.0 mmol/L [facility] Comment: Please note: ??Patients with WBC >100,00 0 may have falsely elevated Potassium levels. ??For accurate Potassium quantif ication in these patients send serum separator tube (gold top) for subsequent determinations. ??Contact the Clinical Chemistry Laboratory if there are any qu estions. Chloride 102 98 - 107 mmol/L [facility] CO2 26 22 - 31 mmol/L [facility] Anion Gap 9 5 - 15 mmol/L [facility] Calcium 7.8 (L) 8.5 - 10.5 mg/dL [facility] Estimated GFR 62 >=60 [...] (Source) Location / / Volume Laterality Blood 04/03/2022 4:16 PM 2 4:16 EDT PM EDT Resulting Agency Comment Spec In Lab Olena Loya MD CHEMISTRY ORDERABLES Performing Organization Address City/State/ZIP Code Phon e Number [address] POCT Glucose (04/03/2022 3:55 PM EDT) P athologist Signature POC Glucose 136 65 - 199 [facility] mg/dL [facility] Comment: Supplemental ranges: <140 mg/dL before meals <180 mg/dL all other times of the day Specimen Anatomical Collection Method Collection Time Receive d Time (Source) Location / / Volume Laterality Blood 04/03/2022 3:55 PM 2 3:55 EDT PM EDT Abdulkadir Raya MD POINT OF CARE TEST ORDERABLE S Performing Organization Address City/State/ZIP [place] [address] Chest Tube Insertion (04/03/2022 3:43 PM EDT) Narrative Olena Loya MD - 04/03/2022 3:43 P M EDT Olena Loya MD ? 04/03/2022 11:04 PM Procedure Note: Chest Tube Indications: dyspnea Pre-operative Diagnosis: ?? Right Effusi on Post-operative Diagnosis: Right Effusion Surgeon: OLENA LOYA MD Procedure Details: ?? Procedure performed CVCC. ??Maximum ster ile barrier technique was utilized. After sterile skin prep, under ultrasound ?? guidance, the right pleural collection was entered with a 20 gauge JANA CATH needle & catheter ga needle. ??Over an . 035 inch guidewire, after serial dilation, a 12 Fr tube was placed in the right pleural space. Locking loop formed and secured. ??Tube was affixed to the skin, wound dressed, and tube left to pl eurevac drainage. Specimens: None Fluoroscopy dose: 0 min Complications: None; patient tolerated t he procedure well. Findings: ??570 ml of serosanguinous flu id obtained Impression: ??Right chest tube placed Plan: ??Chest tube to pleurevac at -20 c m H20. ??Record outputs. Attending Attestation: I performed the p rocedure. Olena Loya MD PROCEDURE/MINOR SURGICAL ORD ERABLES XR Chest One View (04/03/2022 2:11 PM EDT) Anatomical Region Laterality Modality Chest N/A Digital Radiography Specimen (Source) Anatomical Location Collection Method / Collectio n Time Received Time / Laterality Volume Impressions 04/03/2022 2:29 PM EDT Interval placement of a right-sided chest tube with resolution of the previously seen pleural effusion. Interval placemen t of a central venous catheter through the right IJ sheath, its tip poorly visu alized. A stable examination otherwise. Thank you for letting us participate in the care of this patient. ??If you are a health care provider and have any questi ons regarding this report, please contact the number below. ??For patients who have questions please contact the health landcare facilitator that requested your imaging first. ? Electronically signed by: Evert fritz MD, [facility] ([phone]), at 04/03/2022 2:29 PM Narrative 04/03/2022 2:29 PM EDT EXAMINATION: XR CHEST ONE VIEW CLINICAL HISTORY: Newly placed right gabrielle ed pigtail-type chest tube TECHNIQUE: 1 view of the chest COMPARISON: April 02, 2020 FINDINGS: Low lung volumes. Wedge-shaped opacity a t the bases consistent with subsegmental atelectases. A pigtail catheter projects over the right pulmonary base. The left pigtail catheter is unchanged. Right-gabrielle ed central venous catheter is in place, tip obscured at the level of the right h emidiaphragm. The median sternotomy wires are again noted. Procedure Note Evert Quiroz MD - 04/03/2022For matting of this note might be different from the original. EXAMINATION: XR CHEST ONE VIEW CLINICAL HISTORY: Newly placed right gabrielle ed pigtail-type chest tube TECHNIQUE: 1 view of the chest COMPARISON: April 02, 2020 FINDINGS: Low lung volumes. Wedge-shaped opacity a t the bases consistent with subsegmental atelectases. A pigtail catheter projects over the right pulmonary base. The left pigtail catheter is unchanged. Right-gabrielle ed central venous catheter is in place, tip obscured at the level of the right h emidiaphragm. The median sternotomy wires are again noted. IMPRESSION Interval placement of a right-sided ches t tube with resolution of the previously seen pleural effusion. Interval placemen t of a central venous catheter through the right IJ sheath, its tip poorly visu alized. A stable examination otherwise. Thank you for letting us participate in the care of this patient. If you are a health care provider and have any questi ons regarding this report, please contact the number below. For patients w ho have questions please contact the health landcare facilitator that requested your imaging first. Olena Loya MD IMG DX ORDERABLES POCT Glucose (04/03/2022 12:03 PM EDT) athologist Signature POC Glucose 178 65 - 199 [facility] Comment: Supplemental ranges: <140 mg/dL before meals <180 mg/dL all other times of the day Specimen Anatomical Collection Method Collection Time Receive d Time (Source) Location / / Volume Laterality Blood 04/03/2022 12:03 04/03/2022 PM EDT 12:03 PM EDT Abdulkadir Raya MD POINT OF CARE TEST ORDERABLE S Performing Organization Address City/State/ZIP Code Phon e Number [address] POCT Glucose (04/03/2022 8:00 AM EDT) athologist Signature POC Glucose 126 65 - 199 [facility] Comment: Supplemental ranges: <140 mg/dL before meals <180 mg/dL all other times of the day Specimen Anatomical Collection Method Collection Time Receive d Time (Source) Location / / Volume Laterality Blood 04/03/2022 8:00 AM 8:00 EDT AM EDT Abdulkadir Raya MD POINT OF CARE TEST ORDERABLE S Performing Organization Address City/State/ZIP [place] [address] (ABNORMAL) Basic Metabolic Panel (non-fasting) (04/03/2022 8:00 AM EDT) athologist Signature Glucose Lvl 127 65 - 199 [facility] Comment: Diabetes: >=200 mg/dL plus symp toms BUN 51 (H) 8 - 18 mg/dL [facility] Creatinine 0.94 0.70 - 1.20 mg/dL [facility] Sodium 135 135 - 145 mmol/L [facility] Potassium 4.9 3.5 - 5.0 mmol/L [facility] Comment: Please note: ??Patients with WBC >100,00 0 may have falsely elevated Potassium levels. ??For accurate Potassium quantif ication in these patients send serum separator tube (gold top) for subsequent determinations. ??Contact the Clinical Chemistry Laboratory if there are any qu estions. Chloride 102 98 - 107 mmol/L [facility] CO2 22 22 - 31 mmol/L [facility] Anion Gap 11 5 - 15 mmol/L [facility] Calcium 7.8 (L) 8.5 - 10.5 mg/dL [facility] Estimated GFR 65 >=60 mL/min/1.73 m?? [facility] [...] (Source) Location / / Volume Laterality Blood 04/03/2022 8:00 AM 8:09 EDT AM EDT Resulting Agency Comment Spec In Lab Vesna Trent JENN CHEMISTRY ORDERABLES Performing Organization Address City/State/ZIP [place] [address] (ABNORMAL) Coox2 (04/02/2022 11:45 PM EDT) P athologist Signature pO2 Coox 32 mmHg [facility] Hgb Blood Gas 8.9 (L) 11.7 - [facility] 15.5 g/dL [facility] O2HB Coox 52.4 % [facility] COHB Coox 1.3 % [facility] Comment: Nonsmokers: 0.5-1.5% COHB Smokers: Variable, but usually less than 10% Toxic: 20-30% COHB Lethal: Greater than 60% COHB METHB Coox 0.4 <=1.5 % [facility] Source Coox Mixed Venous [facility] Specimen Anatomical Collection Method Collection Time Receive d Time (Source) Location / / Volume Laterality Blood 04/02/2022 11:45 04/02/2022 PM EDT 11:45 PM EDT Abdulkadir Raya MD CHEMISTRY ORDERABLES Performing Organization Address City/State/ZIP [place] [address] (ABNORMAL) Basic Metabolic Panel (non-fasting) (04/02/2022 11:45 PM EDT) athologist Signature Glucose Lvl 130 65 - 199 [facility] mg/dL [facility] Comment: Diabetes: >=200 mg/dL plus symp toms BUN 57 (H) 8 - 18 mg/dL [facility] Creatinine 1.11 0.70 - 1.20 mg/dL [facility] Sodium 136 135 - 145 mmol/L [facility] Potassium 4.8 3.5 - 5.0 mmol/L [facility] Comment: Please note: ??Patients with WBC >100,00 0 may have falsely elevated Potassium levels. ??For accurate Potassium quantif ication in these patients send serum separator tube (gold top) for subsequent determinations. ??Contact the Clinical Chemistry Laboratory if there are any qu estions. Chloride 102 98 - 107 mmol/L [facility] CO2 24 22 - 31 mmol/L [facility] Anion Gap 10 5 - 15 mmol/L [facility] Calcium 7.8 (L) 8.5 - 10.5 mg/dL [facility] Estimated GFR 53 (L) >=60 mL/min/1.73 m?? [facility] [...] (Source) Location / / Volume Laterality Blood 04/02/2022 11:45 04/02/2022 PM EDT 11:52 PM EDT Resulting Agency Comment Spec In Lab Olena Loya MD CHEMISTRY ORDERABLES Performing Organization Address City/[facility]/ZIP Code Phon e Number [address] (ABNORMAL) Coox2 (04/02/2022 7:37 PM EDT) P athologist Signature pO2 Coox 27 mmHg [facility] Hgb Blood Gas 8.9 (L) 11.7 - [facility] 15.5 g/dL [facility] O2HB Coox 39.6 % [facility] COHB Coox 1.1 % [facility] Comment: Nonsmokers: 0.5-1.5% COHB Smokers: Variable, but usually less than 10% Toxic: 20-30% COHB Lethal: Greater than 60% COHB METHB Coox 0.6 <=1.5 % [facility] Source Coox Mixed Venous [facility] Specimen Anatomical Collection Method Collection Time Receive d Time (Source) Location / / Volume Laterality Blood 04/02/2022 7:37 PM 7:37 EDT PM EDT Abdulkadir Raya MD CHEMISTRY ORDERABLES Performing Organization Address City/[facility]/ZIP Code Phon e Number [address] Potassium (04/02/2022 7:30 PM EDT) P athologist Signature Potassium 4.9 3.5 - 5.0 [facility] mmol/L [facility] Comment: Please note: ??Patients with WBC >100,00 0 may have falsely elevated Potassium levels. ??For accurate Potassium quantif ication in these patients send serum separator tube (gold top) for subsequent determinations. ??Contact the Clinical Chemistry Laboratory if there are any qu estions. Specimen Anatomical Collection Method Collection Time Receive d Time (Source) Location / / Volume Laterality Blood 04/02/2022 7:30 PM 2 7:49 EDT PM EDT Resulting Agency Comment Spec In Lab Abdulkadir Raya MD CHEMISTRY ORDERABLES Performing Organization Address City/State/ZIP [place] [address] POCT Glucose (04/02/2022 5:51 PM EDT) P athologist Signature POC Glucose 160 65 - 199 [facility] mg/dL [facility] Comment: Supplemental ranges: <140 mg/dL before meals <180 mg/dL all other times of the day Specimen Anatomical Collection Method Collection Time Receive d Time (Source) Location / / Volume Laterality Blood 04/02/2022 5:51 PM 2 5:51 EDT PM EDT Abdulkadir Raya MD POINT OF CARE TEST ORDERABLE S Performing Organization Address City/State/ZIP [place] [address] Chest Tube Insertion (04/02/2022 4:55 PM EDT) Narrative Olena Loya MD - 04/02/2022 4:55 P M EDT Olena Loya MD ? 04/03/2022 12:01 PM Procedure Note: Chest Tube Indications: pneumothorax Pre-operative Diagnosis: ?? Left Pneumot horax Post-operative Diagnosis: Left Pneumotho rax Surgeon: OLENA LOYA MD ?? Procedure Details: ?? Procedure performed [facility]. ??Maximum ster ile barrier technique was utilized. After sterile skin prep, under ultrasound ?? guidance, the left pleural collection was entered with a 20 gauge JANA CATH needle & catheter ga needle. ??Over an . 035 inch guidewire, after serial dilation, a 10 Fr tube was placed in the left pleural space. Locking loop formed and secured. ??Tube was sutured to the skin, wound dressed, and tube left to pl eurevac drainage. Specimens: None Fluoroscopy dose: 0 min Complications: None; patient tolerated t he procedure well. Findings: ??100 ml of serous fluid obtai atilio Impression: ??Left chest tube placed Plan: ??Chest tube to pleurevac at -20 c m H20. ??Record outputs. Attending Attestation: I performed the p rocedure. Olena Loya MD PROCEDURE/MINOR SURGICAL ORD ERABLES (ABNORMAL) Basic Metabolic Panel (non-fasting) (04/02/2022 4:54 PM EDT) athologist Signature Glucose Lvl 143 65 - 199 [facility] mg/dL [facility] Comment: Diabetes: >=200 mg/dL plus symp toms BUN 59 (H) 8 - 18 mg/dL [facility] Creatinine 1.34 (H) 0.70 - 1.20 mg/dL [facility] Sodium 133 (L) 135 - 145 mmol/L [facility] Potassium 5.2 (H) 3.5 - 5.0 mmol/L [facility] Comment: Please note: ??Patients with WBC >100,00 0 may have falsely elevated Potassium levels. ??For accurate Potassium quantif ication in these patients send serum separator tube (gold top) for subsequent determinations. ??Contact the Clinical Chemistry Laboratory if there are any qu estions. Chloride 100 98 - 107 mmol/L [facility] CO2 21 (L) 22 - 31 mmol/L [facility] Anion Gap 12 5 - 15 mmol/L [facility] Calcium 7.8 (L) 8.5 - 10.5 mg/dL [facility] Estimated GFR 42 (L) >=60 mL/min/1.73 m?? [facility] [...] (Source) Location / / Volume Laterality Blood 04/02/2022 4:54 PM 2 4:54 EDT PM EDT Resulting Agency Comment Spec In Lab Olena Loya MD CHEMISTRY ORDERABLES Performing Organization Address City/State/ZIP [place] [address] (ABNORMAL) BLOOD GAS 2 ARTERIAL (04/02/2022 4:38 PM EDT) Analysis Performed At Patho logist Time Signature pH Art 7.34 (L) 7.35 - [facility] 7.45 [facility] pCO2 Art 41 35 - 45 [facility] mmHg [facility] pO2 Art 78 (L) 85 - 104 [facility] LABORATORY HCO3 Art 21.4 20.0 - [facility] 26.0 [facility] mmol/[facility] BE Art -4.5 (L) -3.0 - 3.0 [facility] mmol/L [facility] Hgb Blood Gas 8.9 (L) 11.7 - [facility] 15.5 g/dL [facility] O2HB Art 91.9 (L) 94.0 - [facility] 97.0 % [facility] COHB Art 0.9 % [facility] Comment: Nonsmokers: 0.5-1.5% COHB Smokers: Variable, but usually less than 10% Toxic: 20-30% COHB Lethal: Greater than 60% COHB METHB Art 0.6 <=1.5 % [facility] Na Whole Blood 128 (L) 135 - 145 mmol/L [facility] K Whole Blood 4.7 3.5 - 5.0 mmol/L [facility] Comment: Please note: Patients with WBC >100,000 may have falsely elevated Potassium levels. Contact the Clinical Chemistry L aboratory if there are any questions. ICa Whole Blood 1.09 (L) 1.15 - 1.33 mmol/L [facility] Comment: Note: ??Total bilirubin higher than 20 m g/dL may lead to falsely low ionized calcium. CL Whole Blood 100 98 - 107 mmol/L [facility] Gluc Whole Bld 274 (H) 65 - 199 mg/dL [facility] Comment: Diabetes: >=200 mg/dL plus symp toms. Lactate WB 1.5 0.5 - 2.2 mmol/L [facility] Flow Art 2.0 LPM [facility] Specimen Anatomical Collection Method Collection Time Receive d Time (Source) Location / / Volume Laterality Blood 04/02/2022 4:38 PM 2 4:38 EDT PM EDT Abdulkadir Raya MD CHEMISTRY ORDERABLES Performing Organization Address City/[facility]/ZIP Code Phon e Number [address] POCT Glucose (04/02/2022 4:15 PM EDT) athologist Signature POC Glucose 138 65 - 199 [facility] mg/dL [facility] Comment: Supplemental ranges: <140 mg/dL before meals <180 mg/dL all other times of the day Specimen Anatomical Collection Method Collection Time Receive d Time (Source) Location / / Volume Laterality Blood 04/02/2022 4:15 PM 2 4:15 EDT PM EDT Abdulkadir Raya MD POINT OF CARE TEST ORDERABLE S Performing Organization Address City/[facility]/ZIP [place] [address] ECHOCARDIOGRAM LMTD W CONTRAST W LMTD SPEC DOPP COLOR DOPP (04/02/2022 4:11 PM EDT) athologist Signature EF 53 [facility] Anatomical Region Laterality Modality Cardiac Other Specimen (Source) Anatomical Collection Method Collection Time Re ceived Time Location / / Volume Laterality 04/02/2022 3:24 PM EDT Narrative 04/02/2022 4:48 PM EDT ?[facility] ?[address] ? [place] [address] ?Voice: ?Fax: ? [facility] ? Study Date: 04/02/2022 03:24 PMBP: 131/65 mmHg ? Patient Location: [facility] CV30 A : 1950 ? Height: 147 cm ? Account: [id number] Age: 72 yrs ? Weight: 109 kg Gender: Female ?BSA: 2.0 m2 Ordering Physician: OLENA LOYA Referring Physician: ABDULKADIR RAYA Performed By: ALPA [place] Reason For Study: Decreased cardiac outp ut, post op CABG/AVR Exam Location: [facility]. Interpretation Summary Technically limited due to lack of acous tic windows and ample body habitus. Left ventricle is probably normal in meseret bal function, with abnormal septal motion due to post-pericardiotomy. There is a 19 mm Inspiris bioprosthesis in the aortic position, implanted 03/2022, appearing well-seated and with normal fu nction. The mean trans-valvular gradient across the aortic valve prosthesis is 18 mmHg. DVI of 0.52. There is no paravalvular leak and no intravalvular l eak. Procedure Limited - 73073. Color Doppler - 96755. limited spectral 35345. Image enhancement Definity was used for left ventricular o pacification. Suboptimal quality. This study is limited because of inadequate a coustic windows. Patient is 3 days post op CABG/AVR. Left Ventricle The left ventricle is not well visualize d. Left ventricular ejection fraction is estimated visually at 50-55%. There are no segmental wall motion abnormalities. There is abnormal septal motion post sharif rnotomy. Right Ventricle The right ventricle is not well visualiz ed. Aortic Valve The date or year of insertion is 03/30/22 . 19mm Inspiris valve. The prosthetic valve leaflets are not well visualized. The peak gradient across the prosthesis is 34 mmHg. The mean gradient across the pr osthesis is 18 mmHg. Mitral Valve Moderate calcification of the mitral thelma ulus. The estimated mean gradient across the mitral valve is 4 mmHg. Heart rate: 93 beats per minute. There is trace mitral regurgitation. Tricuspid Valve The tricuspid valve is not well visualiz ed. There is trace tricuspid regurgitation. Pericardium/Pleural There is no pericardial effusion. Doppler Ao V2 VTI: 44.9 cm Ao valve max: 33.6 mmHg Ao valve mean: 18.0 mmHg Dimensionless index Aov: 0.52 MV mean P.4 mmHg Procedure Note Aaron Blancas MD - 04/02/2022Formatt ing of this note might be different from the original. [facility] [address] [place] [address] Voice: Fax: Echocardiogram Report Name: MARCELLE ALBARRAN Study Date: 2021 03:24 PMBP: 131/65 mmHg Patient Location: [facility] V30 A : 1950 Height: 147 cm Account: [id number] Age: 72 yrs Weight: 109 kg Gender: Female BSA: 2.0 m2 Ordering Physician: OLENA LOYA Referring Physician: ABDULKADIR RAYA Performed By: ALPA [place] Reason For Study: Decreased cardiac outp ut, post op CABG/AVR Exam Location: [facility]. Interpretation Summary Technically limited due to lack of acous tic windows and ample body habitus. Left ventricle is probably normal in meseret bal function, with abnormal septal motion due to post-pericardiotomy. There is a 19 mm Inspiris bioprosthesis in the aortic position, implanted 03/2022, appearing well-seated and with normal fu nction. The mean trans-valvular gradient across the aortic valve prosthesis is 18 mmHg. DVI of 0.52. There is no paravalvular leak and no intravalvular l eak. Procedure Limited - 44895. Color Doppler - 04874. limited spectral 34890. Image enhancement Definity was used for left ventricular o pacification. Suboptimal quality. This study is limited because of inadequate a coustic windows. Patient is 3 days post op CABG/AVR. Left Ventricle The left ventricle is not well visualize d. Left ventricular ejection fraction is estimated visually at 50-55%. There are no segmental wall motion abnormalities. There is abnormal septal motion post sharif rnotomy. Right Ventricle The right ventricle is not well visualiz ed. Aortic Valve The date or year of insertion is 03/30/22 . 19mm Inspiris valve. The prosthetic valve leaflets are not well visualized. The peak gradient across the prosthesis is 34 mmHg. The mean gradient across the pr osthesis is 18 mmHg. Mitral Valve Moderate calcification of the mitral thelma ulus. The estimated mean gradient across the mitral valve is 4 mmHg. Heart rate: 93 beats per minute. There is trace mitral regurgitation. Tricuspid Valve The tricuspid valve is not well visualiz ed. There is trace tricuspid regurgitation. Pericardium/Pleural There is no pericardial effusion. Doppler Ao V2 VTI: 44.9 cm Ao valve max: 33.6 mmHg Ao valve mean: 18.0 mmHg Dimensionless index Aov: 0.52 MV mean P.4 mmHg Olena Loya MD ECHO ORDERABLES (ABNORMAL) Coox2 (04/02/2022 4:01 PM EDT) athologist Signature pO2 Coox 24 mmHg [facility] Hgb Blood Gas 8.8 (L) 11.7 - [facility] 15.5 g/dL [facility] O2HB Coox 34.7 % [facility] COHB Coox 0.8 % [facility] Comment: Nonsmokers: 0.5-1.5% COHB Smokers: Variable, but usually less than 10% Toxic: 20-30% COHB Lethal: Greater than 60% COHB METHB Coox 0.8 <=1.5 % [facility] Source Coox Mixed Venous [facility] Specimen Anatomical Collection Method Collection Time Receive d Time (Source) Location / / Volume Laterality Blood 04/02/2022 4:01 PM 2 4:01 EDT PM EDT Abdulkadir Raya MD CHEMISTRY ORDERABLES Performing Organization Address City/State/ZIP [place] [address] (ABNORMAL) BLOOD GAS 2 ARTERIAL (04/02/2022 2:48 PM EDT) Analysis Performed At Patho logist Time Signature pH Art 7.34 (L) 7.35 - [facility] 7.45 [facility] pCO2 Art 40 35 - 45 [facility] mmHg [facility] pO2 Art 64 (L) 85 - 104 [facility] LABORATORY HCO3 Art 20.6 20.0 - [facility] 26.0 [facility] mmol/[facility] BE Art -5.2 (L) -3.0 - 3.0 [facility] mmol/L [facility] Hgb Blood Gas 9.7 (L) 11.7 - [facility] 15.5 g/dL [facility] O2HB Art 88.4 (L) 94.0 - [facility] 97.0 % [facility] COHB Art 1.2 % [facility] Comment: Nonsmokers: 0.5-1.5% COHB Smokers: Variable, but usually less than 10% Toxic: 20-30% COHB Lethal: Greater than 60% COHB METHB Art 0.5 <=1.5 % [facility] Na Whole Blood 130 (L) 135 - 145 mmol/L [facility] K Whole Blood 5.8 (H) 3.5 - 5.0 mmol/L [facility] Comment: Please note: Patients with WBC >100,000 may have falsely elevated Potassium levels. Contact the Clinical Chemistry L aboratory if there are any questions. ICa Whole Blood 1.16 1.15 - 1.33 mmol/L [facility] Comment: Note: ??Total bilirubin higher than 20 m g/dL may lead to falsely low ionized calcium. CL Whole Blood 100 98 - 107 mmol/L [facility] Gluc Whole Bld 131 65 - 199 mg/dL [facility] Comment: Diabetes: >=200 mg/dL plus symp toms. Lactate WB 1.7 0.5 - 2.2 mmol/L [facility] Flow Art 1.0 LPM [facility] Specimen Anatomical Collection Method Collection Time Receive d Time (Source) Location / / Volume Laterality Blood 04/02/2022 2:48 PM 2 2:48 EDT PM EDT Abdulkadir Raya MD CHEMISTRY ORDERABLES Performing Organization Address City/State/ZIP [place] [address] Insert pulmonary artery catheter (04/02/2022 2:35 PM EDT) Narrative Olena Loya MD - 04/02/2022 2:35 P M EDT Olena Loya MD ? 04/02/2022 ??2:50 PM Pulmonary Arterial Line Placement Proced ure Note Indications: Catheter placed for diagnosis and treatm ent of instability, surveillance and monitoring, cardiac fun ction and renal function. This insertion was not to replace a malf unctioning catheter. This insertion was not due to a suspecte d line-associated infection. Location of Procedure: [facility] Risks and Benefits: The risks and benefits of this procedure were reviewed and informed consent was obtained obtained. Time Out: Prior to the start of the procedure, the patient's identity, intended procedure, site/side, correct p atient positioning and presence of the site jennifer was confirmed as applicable. The medical history and chart were reviewed to rule out potential contraindications to the planned procedu re. Hand Hygiene: The stave mill hand did perform hand hygiene pr ior to line insertion. Procedure Technique: Skin was prepped with chlorhexidine. The introducer that was existing was sharif rilized and a full drape was placed. ??The swan was floated in no rmal fashion without inicident. Floating the [place] Catheter Attempts : as above Comments: sterile technique Sterile Dressing: CHG Impregnated Tegaderm Cardiac Output: 1.5 L/min Complications: No complications. Post Procedure: Procedure well tolerated. Procedure Comments: Olena Loya MD PROCEDURE/MINOR SURGICAL ORD ERABLES (ABNORMAL) Coox2 (04/02/2022 2:17 PM EDT) P athologist Signature pO2 Coox 23 mmHg [facility] Hgb Blood Gas 8.3 (L) 11.7 - [facility] 15.5 g/dL [facility] O2HB Coox 30.4 % [facility] COHB Coox 0.6 % [facility] Comment: Nonsmokers: 0.5-1.5% COHB Smokers: Variable, but usually less than 10% Toxic: 20-30% COHB Lethal: Greater than 60% COHB METHB Coox 1.2 <=1.5 % [facility] Source Coox Mixed Venous [facility] Specimen Anatomical Collection Method Collection Time Receive d Time (Source) Location / / Volume Laterality Blood 04/02/2022 2:17 PM 2:17 EDT PM EDT Abdulkadir Raya MD CHEMISTRY ORDERABLES Performing Organization Address City/State/ZIP Code Phon e Number [place] [id number] XR Chest One View (04/02/2022 1:14 PM EDT) Anatomical Region Laterality Modality Chest N/A Digital Radiography Specimen (Source) Anatomical Location Collection Method / Collectio n Time Received Time / Laterality Volume Impressions 04/02/2022 5:17 PM EDT 1. ??Placement of left pleural pigtail catheter with tip projecting at the left lateral costophrenic angle. 2. ??Increased diffuse hazy airspace opa cities most prominent at the right lung base most suggestive of layering pleural effusion versus atelectasis. 3. ??Right greater than left pleural eff usion. I have personally reviewed the image(s) and the resident's interpretation and agree with the findings, Daisha Ross MD at 04/02/2022 5:17 PM Thank you for letting us participate in the care of this patient. ??If you are a health care provider and have any questi ons regarding this report, please contact the number below. ??For patients who have questions please contact the health landcare facilitator that requested your imaging first. ? Electronically signed by: Daisha Ross MD, [facility] ([phone]), at 04/02/2022 5:17 PM Narrative 04/02/2022 5:17 PM EDT EXAMINATION: XR CHEST ONE VIEW CLINICAL HISTORY: Newly placed left side d pigtail-type chest tube TECHNIQUE: 1 view of the chest COMPARISON: Chest radiograph 04/02/2022 FINDINGS: Interval placement of left pleural pigta il catheter with coiled tip projecting at the left lateral costophrenic angle. Unchanged right IJ introducer sheath with tip at the upper SVC. Unchanged med jose sternotomy wires. Unchanged aortic valve prosthesis. Low lung volumes bilaterally with bronch ovascular crowding. Increased diffuse hazy air space opacity within the right lung. There is right greater than left blunting of the lateral costophrenic ang le. No pneumothorax. Unchanged enlarged cardiomediastinal silhouette. No acute o sseous abnormality. Procedure Note Daisha Alfonso MD - 2021 EXAMINATION: XR CHEST ONE VIEW CLINICAL HISTORY: Newly placed left side d pigtail-type chest tube TECHNIQUE: 1 view of the chest COMPARISON: Chest radiograph 04/02/2022 FINDINGS: Interval placement of left pleural pigta il catheter with coiled tip projecting at the left lateral costophrenic angle. Unchanged right IJ introducer sheath with tip at the upper SVC. Unchanged med jose sternotomy wires. Unchanged aortic valve prosthesis. Low lung volumes bilaterally with bronch ovascular crowding. Increased diffuse hazy air space opacity within the right lung. There is right greater than left blunting of the lateral costophrenic ang le. No pneumothorax. Unchanged enlarged cardiomediastinal silhouette. No acute o sseous abnormality. IMPRESSION 1. Placement of left pleural pigtail cat heter with tip projecting at the left lateral costophrenic angle. 2. Increased diffuse hazy airspace opaci ties most prominent at the right lung base most suggestive of layering pleural effusion versus atelectasis. 3. Right greater than left pleural effus ion. I have personally reviewed the image(s) and the resident's interpretation and agree with the findings, Daisha Ross MD at 04/02/2022 5:17 PM Thank you for letting us participate in the care of this patient. If you are a health care provider and have any questi ons regarding this report, please contact the number below. For patients w ho have questions please contact the health landcare facilitator that requested your imaging first. Electronically signed by: Daisha Ross MD, [facility] ([phone]), at 04/02/2022 5:17 PM Olena Loya MD IMG DX ORDERABLES POCT Glucose (04/02/2022 12:29 PM EDT) athologist Signature POC Glucose 134 65 - 199 [facility] Comment: Supplemental ranges: <140 mg/dL before meals <180 mg/dL all other times of the day Specimen Anatomical Collection Method Collection Time Receive d Time (Source) Location / / Volume Laterality Blood 04/02/2022 12:29 04/02/2022 PM EDT 12:29 PM EDT Abdulkadir Raya MD POINT OF CARE TEST ORDERABLE S Performing Organization Address City/State/Z[place] [address] (ABNORMAL) Potassium (04/02/2022 11:40 AM EDT) athologist Signature Potassium 6.0 (H) 3.5 - 5.0 [facility] mmol/L [facility] Comment: Please note: ??Patients with WBC >100,00 0 may have falsely elevated Potassium levels. ??For accurate Potassium quantif ication in these patients send serum separator tube (gold top) for subsequent determinations. ??Contact the Clinical Chemistry Laboratory if there are any qu estions. Specimen Anatomical Collection Method Collection Time Receive d Time (Source) Location / / Volume Laterality Blood 04/02/2022 11:40 04/02/2022 AM EDT 12:01 PM EDT Resulting Agency Comment Spec In Lab Abdulkadir Raya MD CHEMISTRY ORDERABLES Performing Organization Address City/State/ZIP Code Phon e Number [address] POCT Glucose (04/02/2022 8:11 AM EDT) P athologist Signature POC Glucose 135 65 - 199 [place] mg/dL [facility] Comment: Supplemental ranges: <140 mg/dL before meals <180 mg/dL all other times of the day Specimen Anatomical Collection Method Collection Time Receive d Time (Source) Location / / Volume Laterality Blood 04/02/2022 8:11 AM 2 8:11 EDT AM EDT Abdulkadir Raya MD POINT OF CARE TEST ORDERABLE S Performing Organization Address City/[facility]/ZIP [place] [address] POCT Glucose (04/02/2022 6:51 AM EDT) P athologist Signature POC Glucose 168 65 - 199 [facility] [place] mg/dL [facility] Comment: Supplemental ranges: <140 mg/dL before meals <180 mg/dL all other times of the day Specimen Anatomical Collection Method Collection Time Receive d Time (Source) Location / / Volume Laterality Blood 04/02/2022 6:51 AM 2 6:51 EDT AM EDT Abdulkadir Raya MD POINT OF CARE TEST ORDERABLE S Performing Organization Address City/State/ZIP [place] [address] XR Chest PA & Lateral (Generic) (04/02/2022 4:23 AM EDT) Anatomical Region Laterality Modality Chest N/A Digital Radiography Specimen (Source) Anatomical Location Collection Method / Collectio n Time Received Time / Laterality Volume Addenda Addendum by Magno Molina MD on 03/06 9:50 PM EDT --------ADDENDUM #1-------- After further review there is evidence o f the pneumothorax on the left with air-fluid level posteriorly. This has be en treated with a pigtail catheter. Thank you for letting us participate in the care of this patient. ??If you are a health care provider and have any questi ons regarding this report, please contact the number below. ??For patients who have questions please contact the health landcare facilitator that requested your imaging first. ? Electronically signed by: Magno Molina MD, [facility] ([phone]), at 04/02/2022 9:45 PM --------ORIGINAL REPORT -------- EXAMINATION: XR CHEST PA AND LATERAL (Point Inside) CLINICAL HISTORY: s/p avr, asc aorta pat ch, cabg TECHNIQUE: AP and lateral views of the chest COMPARISON: 03/30/2022 FINDINGS: AVR structure identified. Bilateral pleural effusions, right great er than left. Cardiac silhouette similar to prior exam . No gross alveolar edema. Sheath introducer right IJ with tip SVC. Status post removal of pulmonary artery catheter. . IMPRESSION: Evidence of right greater than left pleu ral effusion. Interval decrease in interstitial edema. Thank you for letting us participate in the care of this patient. ??If you are a health care provider and have any questi ons regarding this report, please contact the number below. ??For patients who have questions please contact the health landcare facilitator that requested your imaging first. ? Electronically signed by: Magno Molina MD, [facility] ([phone]), at 04/02/2022 7:14 AM Impressions 04/02/2022 7:14 AM EDT Evidence of right greater than left pleural effusion. Interval decrease in interstitial edema. Thank you for letting us participate in the care of this patient. ??If you are a health care provider and have any questi ons regarding this report, please contact the number below. ??For patients who have questions please contact the health landcare facilitator that requested your imaging first. ? Narrative 04/02/2022 7:14 AM EDT EXAMINATION: XR CHEST PA AND LATERAL (GENERIC) CLINICAL HISTORY: s/p avr, asc aorta pat ch, cabg TECHNIQUE: AP and lateral views of the chest COMPARISON: 03/30/2022 FINDINGS: AVR structure identified. Bilateral pleural effusions, right great er than left. Cardiac silhouette similar to prior exam . No gross alveolar edema. Sheath introducer right IJ with tip SVC. Status post removal of pulmonary artery catheter. . Procedure Note Magno Molina MD - 04/02/2022Formatt ing of this note might be different from the original. EXAMINATION: XR CHEST PA AND LATERAL (GE NERIC) CLINICAL HISTORY: s/p avr, asc aorta pat ch, cabg TECHNIQUE: AP and lateral views of the chest COMPARISON: 03/30/2022 FINDINGS: AVR structure identified. Bilateral pleural effusions, right great er than left. Cardiac silhouette similar to prior exam . No gross alveolar edema. Sheath introducer right IJ with tip SVC. Status post removal of pulmonary artery catheter. . IMPRESSION Evidence of right greater than left pleu ral effusion. Interval decrease in interstitial edema. Thank you for letting us participate in the care of this patient. If you are a health care provider and have any questi ons regarding this report, please contact the number below. For patients w ho have questions please contact the health landcare facilitator that requested your imaging first. Electronically signed by: Magno Molina MD, [facility] ([phone]), at 04/02/2022 7:14 AM Vesna Trent [employer] WINDING MACHINE OPERATOR IMG DX ORDERABLES (ABNORMAL) Differential, Automated (04/02/2022 12:35 AM EDT) [facility] Method Time Signature Neutrophils % 87.5 % [facility] Neutr Abs (ANC) 15.86 (H) 1.70 - [facility] 6.10 [facility] x10(3)/[facility] LABORATORY Lymphocytes % 5.1 % [facility] Lymphocytes Abs 0.9 0.9 - 3.2 [facility] x10(3)/[facility] LABORATORY Monocytes % 6.3 % [facility] Monocyte Abs 1.1 (H) 0.3 - 0.9 [facility] x10(3)/[facility] LABORATORY Eosinophils % 0.1 % [facility] Eosinophils Abs 0.0 0.0 - 0.4 [facility] x10(3)/[facility] LABORATORY Basophils % 0.2 % [facility] Basophils Abs 0.0 0.0 - 0.1 [facility] x10(3)/[facility] LABORATORY Immature Gran % 0.80 % [facility] Comment: Immature granulocytes(IG's)percentage an d absolute count will include metamyelocytes, myelocytes, and promyelo cytes. Blood smears from CBCs yielding IG's will be scanned manually for concor dance. If this scan disagrees with the automated IG or if promyelocytes are not ed, a manual differential will be performed. Zohreh Gran Abs 0.14 (H) 0.00 - 0.04 x10(3)/[facility] LABORATORY Specimen Anatomical Collection Method Collection Time Receive d Time (Source) Location / / Volume Laterality Blood 04/02/2022 12:35 04/02/2022 AM EDT 12:51 AM EDT Resulting Agency Comment Spec In Lab Vesna Trent APRN HEMATOLOGY ORDERABLES Performing Organization Address City/State/Z[place] [address] (ABNORMAL) Hemogram (04/02/2022 12:35 AM EDT) Analysis Performed At Patho logist Time Signature WBC 18.1 (H) 4.0 - 9.5 [facility] x10(3)/[facility] LABORATORY RBC 3.27 (L) 4.00 - [facility] 5.21 [facility] x10(6)/[facility] LABORATORY Hemoglobin 8.6 (L) 11.7 - [facility] 15.5 g/dL [facility] Hematocrit 28.4 (L) 35.7 - [facility] 45.8 % [facility] MCV 86.9 82.6 - [facility] 94.4 [facility] LABORATORY MCH 26.3 (L) 27.1 - [facility] 32.0 pg [facility] MCHC 30.3 (L) 31.7 - [facility] 35.0 g/dL [facility] Platelets 180 145 - 357 [facility] x10(3)/[facility] LABORATORY RDWSD 52.4 (H) 37.0 - [facility] [place] 46.0 [facility] LABORATORY RDWCV 16.5 (H) 11.5 - [facility] 14.1 % [facility] LAB[facility]ATORY MPV 9.8 7.6 - 12.9 [facility] LABORATORY nRBC % Auto 0.0 % [facility] nRBC Abs Auto 0.000 0.000 - [place] 0.000 [facility] x10(3)/[facility] LABORATORY Specimen Anatomical Collection Method Collection Time Receive d Time (Source) Location / / Volume Laterality Blood 04/02/2022 12:35 04/02/2022 AM EDT 12:51 AM EDT Resulting Agency Comment Spec In Lab Vesna Trent APRN HEMATOLOGY ORDERABLES Performing Organization Address City/State/ZIP [place] [address] (ABNORMAL) Basic Metabolic Panel (non-fasting) (04/02/2022 12:35 AM EDT) P athologist Signature Glucose Lvl 149 65 - 199 [facility] mg/dL [facility] Comment: Diabetes: >=200 mg/dL plus symp toms BUN 51 (H) 8 - 18 mg/dL [facility] Creatinine 1.29 (H) 0.70 - 1.20 mg/dL [facility] Sodium 134 (L) 135 - 145 mmol/L [facility] Potassium 5.6 (H) 3.5 - 5.0 mmol/L [facility] Comment: Please note: ??Patients with WBC >100,00 0 may have falsely elevated Potassium levels. ??For accurate Potassium quantif ication in these patients send serum separator tube (gold top) for subsequent determinations. ??Contact the Clinical Chemistry Laboratory if there are any qu estions. Chloride 102 98 - 107 mmol/L [facility] CO2 21 (L) 22 - 31 mmol/L [facility] Anion Gap 11 5 - 15 mmol/L [facility] Calcium 8.0 (L) 8.5 - 10.5 mg/dL [facility] Estimated GFR 44 (L) >=60 mL/min/1.73 m?? [facility] [...] (Source) Location / / Volume Laterality Blood 04/02/2022 12:35 04/02/2022 AM EDT 12:51 AM EDT Resulting Agency Comment Spec In Lab Vesna Trent JENN CHEMISTRY ORDERABLES Performing Organization Address City/State/ZIP [place] [address] POCT Glucose (04/01/2022 5:29 PM EDT) athologist Signature POC Glucose 144 65 - 199 [facility] mg/dL [facility] Comment: Supplemental ranges: <140 mg/dL before meals <180 mg/dL all other times of the day Specimen Anatomical Collection Method Collection Time Receive d Time (Source) Location / / Volume Laterality Blood 04/01/2022 5:29 PM 5:29 EDT PM EDT Abdulkadir Raya MD POINT OF CARE TEST ORDERABLE S Performing Organization Address City/State/ZIP [place] [address] (ABNORMAL) Basic Metabolic Panel (non-fasting) (04/01/2022 2:00 AM EDT) athologist Signature Glucose Lvl 149 65 - 199 [facility] Comment: Diabetes: >=200 mg/dL plus symp toms BUN 34 (H) 8 - 18 mg/dL [facility] LABOR[facility]ORY Creatinine 1.20 0.70 - 1.20 mg/dL [facility] Sodium 134 (L) 135 - 145 mmol/L [facility] Potassium 5.1 (H) 3.5 - 5.0 mmol/L [facility] Comment: Please note: ??Patients with WBC >100,00 0 may have falsely elevated Potassium levels. ??For accurate Potassium quantif ication in these patients send serum separator tube (gold top) for subsequent determinations. ??Contact the Clinical Chemistry Laboratory if there are any qu estions. Chloride 102 98 - 107 mmol/L [facility] CO2 22 22 - 31 mmol/L [facility] Anion Gap 10 5 - 15 mmol/L [facility] Calcium 7.9 (L) 8.5 - 10.5 mg/dL [facility] Estimated GFR 48 (L) >=60 mL/min/1.73 m?? [facility] [...] (Source) Location / / Volume Laterality Blood 04/01/2022 2:00 AM 2:03 EDT AM EDT Resulting Agency Comment Spec In Lab Vesna Trent APRN CHEMISTRY ORDERABLES Performing Organization Address City/State/ZIP [place] [address] (ABNORMAL) Potassium (03/31/2022 10:00 PM EDT) P athologist Signature Potassium 5.1 (H) 3.5 - 5.0 [facility] mmol/L [facility] Comment: Please note: ??Patients with WBC >100,00 0 may have falsely elevated Potassium levels. ??For accurate Potassium quantif ication in these patients send serum separator tube (gold top) for subsequent determinations. ??Contact the Clinical Chemistry Laboratory if there are any qu estions. Specimen Anatomical Collection Method Collection Time Receive d Time (Source) Location / / Volume Laterality Blood 03/31/2022 10:00 03/31/2022 PM EDT 10:10 PM EDT Resulting Agency Comment Spec In Lab Abdulkadir Raya MD CHEMISTRY ORDERABLES Performing Organization Address City/State/ZIP [place] [address] POCT Glucose (03/31/2022 9:58 PM EDT) athologist Signature POC Glucose 132 65 - 199 [place] mg/dL [facility] Comment: Supplemental ranges: <140 mg/dL before meals <180 mg/dL all other times of the day Specimen Anatomical Collection Method Collection Time Receive d Time (Source) Location / / Volume Laterality Blood 03/31/2022 9:58 PM 2 9:58 EDT PM EDT Abdulkadir Raya MD POINT OF CARE TEST ORDERABLE S Performing Organization Address City/[facility]/ZIP Code Phon e Number [address] POCT Glucose (03/31/2022 8:34 PM EDT) athologist Signature POC Glucose 161 65 - 199 [place] mg/dL [facility] Comment: Supplemental ranges: <140 mg/dL before meals <180 mg/dL all other times of the day Specimen Anatomical Collection Method Collection Time Receive d Time (Source) Location / / Volume Laterality Blood 03/31/2022 8:34 PM 2 8:34 EDT PM EDT Abdulkadir Raya MD POINT OF CARE TEST ORDERABLE S Performing Organization Address City/[facility]/ZIP [place] [address] POCT Glucose (03/31/2022 6:57 PM EDT) athologist Signature POC Glucose 134 65 - 199 [place] mg/dL [facility] Comment: Supplemental ranges: <140 mg/dL before meals <180 mg/dL all other times of the day Specimen Anatomical Collection Method Collection Time Receive d Time (Source) Location / / Volume Laterality Blood 03/31/2022 6:57 PM 2 6:57 EDT PM EDT Abdulkadir Raya MD POINT OF CARE TEST ORDERABLE S Performing Organization Address City/State/ZIP [place] [address] POCT Glucose (03/31/2022 5:06 PM EDT) athologist Signature POC Glucose 146 65 - 199 [facility] mg/dL [facility] Comment: Supplemental ranges: <140 mg/dL before meals <180 mg/dL all other times of the day Specimen Anatomical Collection Method Collection Time Receive d Time (Source) Location / / Volume Laterality Blood 03/31/2022 5:06 PM 5:06 EDT PM EDT Abdulkaidr Raya MD POINT OF CARE TEST ORDERABLE S Performing Organization Address City/State/ZIP Code Phon e Number [address] (ABNORMAL) Basic Metabolic Panel (non-fasting) (03/31/2022 5:00 PM EDT) athologist Signature Glucose Lvl 142 65 - 199 [facility] mg/dL [facility] Comment: Diabetes: >=200 mg/dL plus symp toms BUN 30 (H) 8 - 18 mg/dL [facility]OR[facility]ORY Creatinine 1.30 (H) 0.70 - 1.20 mg/dL [facility] Sodium 137 135 - 145 mmol/L [facility] Potassium 5.8 (H) 3.5 - 5.0 mmol/L [facility] Comment: Please note: ??Patients with WBC >100,00 0 may have falsely elevated Potassium levels. ??For accurate Potassium quantif ication in these patients send serum separator tube (gold top) for subsequent determinations. ??Contact the Clinical Chemistry Laboratory if there are any qu estions. Chloride 103 98 - 107 mmol/L [facility] CO2 20 (L) 22 - 31 mmol/L [facility] Anion Gap 14 5 - 15 mmol/L [facility] Calcium 8.3 (L) 8.5 - 10.5 mg/dL [facility] Estimated GFR 44 (L) >=60 mL/min/1.73 m?? [facility] [...] / Volume Laterality Blood Venous Draw / 03/31/2022 5:00 PM 03/31/20 22 5:45 Unknown EDT PM EDT Resulting Agency Comment Spec In Lab Vesna Trent APRN CHEMISTRY ORDERABLES Performing Organization Address City/[facility]/ZIP [place] [address] (ABNORMAL) Potassium (03/31/2022 5:00 PM EDT) P athologist Signature Potassium 5.7 (H) 3.5 - 5.0 [facility] mmol/L [facility] Comment: Please note: ??Patients with WBC >100,00 0 may have falsely elevated Potassium levels. ??For accurate Potassium quantif ication in these patients send serum separator tube (gold top) for subsequent determinations. ??Contact the Clinical Chemistry Laboratory if there are any qu estions. Specimen Anatomical Collection Method Collection Time Receive d Time (Source) Location / / Volume Laterality Blood 03/31/2022 5:00 PM 2 5:26 EDT PM EDT Resulting Agency Comment Spec In Lab Abdulkadir Raya MD CHEMISTRY ORDERABLES Performing Organization Address City/State/ZIP Code Phon e Number [address] POCT Glucose (03/31/2022 3:33 PM EDT) athologist Signature POC Glucose 146 65 - 199 [facility] mg/dL [facility] Comment: Supplemental ranges: <140 mg/dL before meals <180 mg/dL all other times of the day Specimen Anatomical Collection Method Collection Time Receive d Time (Source) Location / / Volume Laterality Blood 03/31/2022 3:33 PM 2 3:33 EDT PM EDT Abdulkadir Raya MD POINT OF CARE TEST ORDERABLE S Performing Organization Address City/State/ZIP Code Phon e Number [address] POCT Glucose (03/31/2022 1:04 PM EDT) athologist Signature POC Glucose 131 65 - 199 [place] NAHUN mg/dL [facility] LABORATORY Comment: Supplemental ranges: <140 mg/dL before meals <180 mg/dL all other times of the day Specimen Anatomical Collection Method Collection Time Receive d Time (Source) Location / / Volume Laterality Blood 03/31/2022 1:04 PM 2 1:04 EDT PM EDT Abdulkadir Raya MD POINT OF CARE TEST ORDERABLE S Performing Organization Address City/State/ZIP Code Phon e Number [address] POCT Glucose (03/31/2022 11:45 AM EDT) athologist Signature POC Glucose 121 65 - 199 [place] mg/dL [facility] LABORATORY Comment: Supplemental ranges: <140 mg/dL before meals <180 mg/dL all other times of the day Specimen Anatomical Collection Method Collection Time Receive d Time (Source) Location / / Volume Laterality Blood 03/31/2022 11:45 03/31/2022 AM EDT 11:45 AM EDT Abdulkadir Raya MD POINT OF CARE TEST ORDERABLE S Performing Organization Address City/State/ZIP Code Phon e Number [address] POCT Glucose (03/31/2022 11:15 AM EDT) athologist Signature POC Glucose 124 65 - 199 [place] mg/dL [facility] LABORATORY Comment: Supplemental ranges: <140 mg/dL before meals <180 mg/dL all other times of the day Specimen Anatomical Collection Method Collection Time Receive d Time (Source) Location / / Volume Laterality Blood 03/31/2022 11:15 03/31/2022 AM EDT 11:15 AM EDT Abdulkadir Raya MD POINT OF CARE TEST ORDERABLE S Performing Organization Address City/State/ZIP [place] [address] POCT Glucose (03/31/2022 10:02 AM EDT) athologist Signature POC Glucose 141 65 - 199 [place] mg/dL [facility] LABORATORY Comment: Supplemental ranges: <140 mg/dL before meals <180 mg/dL all other times of the day Specimen Anatomical Collection Method Collection Time Receive d Time (Source) Location / / Volume Laterality Blood 03/31/2022 10:02 03/31/2022 AM EDT 10:02 AM EDT Abdulkadir Raya MD POINT OF CARE TEST ORDERABLE S Performing Organization Address City/State/ZIP [place] [address] POCT Glucose (03/31/2022 9:07 AM EDT) athologist Signature POC Glucose 134 65 - 199 [place] mg/dL [facility] LABORATORY Comment: Supplemental ranges: <140 mg/dL before meals <180 mg/dL all other times of the day Specimen Anatomical Collection Method Collection Time Receive d Time (Source) Location / / Volume Laterality Blood 03/31/2022 9:07 AM 9:07 EDT AM EDT Abdulkadir Raya MD POINT OF CARE TEST ORDERABLE S Performing Organization Address City/State/ZIP Code Phon e Number [address] POCT Glucose (03/31/2022 7:57 AM EDT) athologist Signature POC Glucose 147 65 - 199 [place] mg/dL [facility] LABORATORY Comment: Supplemental ranges: <140 mg/dL before meals <180 mg/dL all other times of the day Specimen Anatomical Collection Method Collection Time Receive d Time (Source) Location / / Volume Laterality Blood 03/31/2022 7:57 AM 2 7:57 EDT AM EDT Abdulkadir Raya MD POINT OF CARE TEST ORDERABLE S Performing Organization Address City/State/ZIP [place] [address] (ABNORMAL) BLOOD GAS 2 ARTERIAL (03/31/2022 6:28 AM EDT) Analysis Performed At Patho logist Time Signature pH Art 7.31 (L) 7.35 - [facility] 7.45 [facility] LABORATORY pCO2 Art 47 (H) 35 - 45 [facility] mmHg [facility] LABORATORY pO2 Art 99 85 - 104 [facility] LABORATORY HCO3 Art 22.8 20.0 - [facility] 26.0 [facility] mmol/L [facility] LABORATORY BE Art -3.5 (L) -3.0 - 3.0 [facility] mmol/L [facility] LABORATORY Hgb Blood Gas 9.4 (L) 11.7 - [facility] 15.5 g/dL [facility] LABORATORY O2HB Art 95.7 94.0 - [facility] 97.0 % [facility] LABORATORY COHB Art 0.7 % [facility] LABORATORY Comment: Nonsmokers: 0.5-1.5% COHB Smokers: Variable, but usually less than 10% Toxic: 20-30% COHB Lethal: Greater than 60% COHB METHB Art 0.5 <=1.5 % [facility] LABORATORY Na Whole Blood 135 135 - 145 mmol/L [facility] LABORATORY K Whole Blood 5.1 (H) 3.5 - 5.0 mmol/L [facility] LABORATORY Comment: Please note: Patients with WBC >100,000 may have falsely elevated Potassium levels. Contact the Clinical Chemistry L aboratory if there are any questions. ICa Whole Blood 1.18 1.15 - 1.33 mmol/L [facility] LABORATORY Comment: Note: ??Total bilirubin higher than 20 m g/dL may lead to falsely low ionized calcium. CL Whole Blood 105 98 - 107 mmol/L [facility] LABORATORY Gluc Whole Bld 139 65 - 199 mg/dL [facility] LABORATORY Comment: Diabetes: >=200 mg/dL plus symp toms. Lactate WB 2.3 (H) 0.5 - 2.2 mmol/L [facility] LABORATORY FIO2 Art 40 % [facility] LABORATORY PF Ratio Art 248 [facility] LABORATORY Specimen Anatomical Collection Method Collection Time Receive d Time (Source) Location / / Volume Laterality Blood 03/31/2022 6:28 AM 2 6:28 EDT AM EDT Abdulkadir Raya MD CHEMISTRY ORDERABLES Performing Organization Address City/State/ZIP Code Phon e Number [address] POCT Glucose (03/31/2022 5:32 AM EDT) athologist Signature POC Glucose 128 65 - 199 [facility] LABORATORY Comment: Supplemental ranges: <140 mg/dL before meals <180 mg/dL all other times of the day Specimen Anatomical Collection Method Collection Time Receive d Time (Source) Location / / Volume Laterality Blood 03/31/2022 5:32 AM 2 5:32 EDT AM EDT Abdulkadir Raya MD POINT OF CARE TEST ORDERABLE S Performing Organization Address City/State/ZIP Code Phon e Number [address] POCT Glucose (03/31/2022 5:01 AM EDT) athologist Signature POC Glucose 136 65 - 199 [facility] LABORATORY Comment: Supplemental ranges: <140 mg/dL before meals <180 mg/dL all other times of the day Specimen Anatomical Collection Method Collection Time Receive d Time (Source) Location / / Volume Laterality Blood 03/31/2022 5:01 AM 2 5:01 EDT AM EDT Abdulkadir Raya MD POINT OF CARE TEST ORDERABLE S Performing Organization Address City/State/ZIP [place] [address] (ABNORMAL) BLOOD GAS 2 ARTERIAL (03/31/2022 4:02 AM EDT) Analysis Performed At Patho logist Time Signature pH Art 7.31 (L) 7.35 - [facility] 7.45 [facility] LABORATORY pCO2 Art 49 (H) 35 - 45 [facility] mmHg [facility] LABORATORY pO2 Art 106 (H) 85 - 104 [facility] LABORATORY HCO3 Art 24.3 20.0 - [facility] 26.0 [facility] mmol/L [facility] LABORATORY BE Art -1.9 -3.0 - 3.0 [facility] mmol/L [facility] LABORATORY Hgb Blood Gas 9.4 (L) 11.7 - [facility] 15.5 g/dL [facility] O2HB Art 96.3 94.0 - [facility] 97.0 % [facility] LABORATORY COHB Art 0.5 % [facility] LABORATORY Comment: Nonsmokers: 0.5-1.5% COHB Smokers: Variable, but usually less than 10% Toxic: 20-30% COHB Lethal: Greater than 60% COHB METHB Art 0.5 <=1.5 % [facility] LABORATORY Na Whole Blood 136 135 - 145 mmol/L [facility] LABORATORY K Whole Blood 4.9 3.5 - 5.0 mmol/L [facility] LABORATORY Comment: Please note: Patients with WBC >100,000 may have falsely elevated Potassium levels. Contact the Clinical Chemistry L aboratory if there are any questions. ICa Whole Blood 1.20 1.15 - 1.33 mmol/L [facility] LABORATORY Comment: Note: ??Total bilirubin higher than 20 m g/dL may lead to falsely low ionized calcium. CL Whole Blood 105 98 - 107 mmol/L [facility] LABORATORY Gluc Whole Bld 141 65 - 199 mg/dL [facility] LABORATORY Comment: Diabetes: >=200 mg/dL plus symp toms. Lactate WB 2.0 0.5 - 2.2 mmol/L [facility] LABORATORY FIO2 Art 40 % [facility] LABORATORY PF Ratio Art 265 [facility] LABORATORY Specimen Anatomical Collection Method Collection Time Receive d Time (Source) Location / / Volume Laterality Blood 03/31/2022 4:02 AM 2 4:02 EDT AM EDT Abdulkadir Raya MD CHEMISTRY ORDERABLES Performing Organization Address City/[facility]/ZIP Code Phon e Number [address] POCT Glucose (03/31/2022 3:58 AM EDT) P athologist Signature POC Glucose 149 65 - 199 [facility] NAHUN mg/dL [facility] LABORATORY Comment: Supplemental ranges: <140 mg/dL before meals <180 mg/dL all other times of the day Specimen Anatomical Collection Method Collection Time Receive d Time (Source) Location / / Volume Laterality Blood 03/31/2022 3:58 AM 2 3:58 EDT AM EDT Abdulkadir Raya MD POINT OF CARE TEST ORDERABLE S Performing Organization Address City/[facility]/ZIP Code Phon e Number [address] POCT Glucose (03/31/2022 2:59 AM EDT) P athologist Signature POC Glucose 146 65 - 199 [facility] LABORATORY Comment: Supplemental ranges: <140 mg/dL before meals <180 mg/dL all other times of the day Specimen Anatomical Collection Method Collection Time Receive d Time (Source) Location / / Volume Laterality Blood 03/31/2022 2:59 AM 2 2:59 EDT AM EDT Abdulkadir Raya MD POINT OF CARE TEST ORDERABLE S Performing Organization Address City/[facility]/ZIP [place] [address] (ABNORMAL) Differential, Automated (03/31/2022 2:15 AM EDT) [facility] gist Method Time Signature Neutrophils % 90.9 % [facility] LABORATORY Neutr Abs (ANC) 15.48 (H) 1.70 - [facility] 6.10 [facility] x10(3)/[facility] L LABORATORY Lymphocytes % 3.5 % [facility] LABORATORY Lymphocytes Abs 0.6 (L) 0.9 - 3.2 [facility] x10(3)/[facility] LABORATORY Monocytes % 5.1 % [facility] LABORATORY Monocyte Abs 0.9 0.3 - 0.9 [facility] x10(3)/[facility] LABORATORY Eosinophils % 0.0 % [facility] LABORATORY Eosinophils Abs 0.0 0.0 - 0.4 [facility] x10(3)/[facility] LABORATORY Basophils % 0.1 % [facility] LABORATORY Basophils Abs 0.0 0.0 - 0.1 [facility] x10(3)/[facility] LABORATORY Immature Gran % 0.40 % [facility] LABORATORY Comment: Immature granulocytes(IG's)percentage an d absolute count will include metamyelocytes, myelocytes, and promyelo cytes. Blood smears from CBCs yielding IG's will be scanned manually for concor dance. If this scan disagrees with the automated IG or if promyelocytes are not ed, a manual differential will be performed. Zohreh Gran Abs 0.07 (H) 0.00 - 0.04 x10(3)/[facility] LABORATORY Specimen Anatomical Collection Method Collection Time Receive d Time (Source) Location / / Volume Laterality Blood 03/31/2022 2:15 AM 2 2:26 EDT AM EDT Resulting Agency Comment Spec In Lab Danuta VELOZ HEMATOLOGY ORDERABLES Performing Organization Address City/State/ZIP [place] [address] (ABNORMAL) Hemogram (03/31/2022 2:15 AM EDT) Analysis Performed At Patho logist Time Signature WBC 17.0 (H) 4.0 - 9.5 [facility] x10(3)/[facility] LABORATORY RBC 3.30 (L) 4.00 - [facility] 5.21 [facility] x10(6)/[facility] LABORATORY Hemoglobin 8.7 (L) 11.7 - [facility] 15.5 g/dL [facility] Hematocrit 28.9 (L) 35.7 - [facility] 45.8 % [facility] MCV 87.6 82.6 - [facility] 94.4 [facility] LABORATORY MCH 26.4 (L) 27.1 - [facility] 32.0 pg [facility] LABORATORY MCHC 30.1 (L) 31.7 - [facility] 35.0 g/dL [facility] LABORATORY Platelets 192 145 - 357 [facility] x10(3)/[facility] LABORATORY RDWSD 52.6 (H) 37.0 - [facility] 46.0 [facility] LABORATORY RDWCV 16.4 (H) 11.5 - [facility] NAHUN 14.1 % [facility] LABORATORY MPV 9.3 7.6 - 12.9 [facility] LABORATORY nRBC % Auto 0.0 % [facility] LABORATORY nRBC Abs Auto 0.000 0.000 - [facility] 0.000 [facility] x10(3)/[facility] LABORATORY Specimen Anatomical Collection Method Collection Time Receive d Time (Source) Location / / Volume Laterality Blood 03/31/2022 2:15 AM 2 2:26 EDT AM EDT Resulting Agency Comment Spec In Lab Danuta VELOZ HEMATOLOGY ORDERABLES Performing Organization Address City/State/ZIP [place] [address] (ABNORMAL) Basic Metabolic Panel (non-fasting) (03/31/2022 2:15 AM EDT) P athologist Signature Glucose Lvl 169 65 - 199 [facility] mg/dL [facility] LABORATORY Comment: Diabetes: >=200 mg/dL plus symp toms BUN 24 (H) 8 - 18 mg/dL [facility] LABORATORY Creatinine 0.99 0.70 - 1.20 mg/dL [facility] LABORATORY Sodium 137 135 - 145 mmol/L [facility] LABORATORY Potassium 4.9 3.5 - 5.0 mmol/L [facility] LABORATORY Comment: Please note: ??Patients with WBC >100,00 0 may have falsely elevated Potassium levels. ??For accurate Potassium quantif ication in these patients send serum separator tube (gold top) for subsequent determinations. ??Contact the Clinical Chemistry Laboratory if there are any qu estions. Chloride 104 98 - 107 mmol/L [facility] LABORATORY CO2 25 22 - 31 mmol/L [facility] LABORATORY Anion Gap 8 5 - 15 mmol/L [facility] LABORATORY Calcium 8.6 8.5 - 10.5 mg/dL [facility] LABORATORY Estimated GFR 61 >=60 mL/min/1.73 m?? [facility] [...] (Source) Location / / Volume Laterality Blood 03/31/2022 2:15 AM 2 2:26 EDT AM EDT Resulting Agency Comment Spec In Lab Abdulkadir Raya MD CHEMISTRY ORDERABLES Performing Organization Address City/State/ZIP [place] [address] (ABNORMAL) Troponin (03/31/2022 2:15 AM EDT) athologist Signature Troponin-T 0.99 (H) 0.00 - [facility] 0.00 ng/mL [facility] LABORATORY Comment: The 99th percentile for Troponin T is le ss than 0.01 ng/mL, any detectable cTnT concentration using this assay should be considered elevated. According to the third universal definit ion of myocardial infarction the following criteria with a clinical prese ntation consistent with acute myocardial ischemia meets the diagnosis for a myocardial infarction (IA). Detection of a rise and/or fall of cTnT, with at least one value greater than the 99th percentile (> or = 0.01) and wi th at least one of the following ?? Symptoms of ischemia ?? New or presumed new significant ST-se gment-T wave (ST-T) changes or new left bundle branch block (LBBB) ?? Development of pathologic Q waves in the ECG ?? Imaging evidence of new loss of viabl e myocardium or new regional wall motion abnormality ?? Identification of an intracoronary th rombus by angiography or autopsy Samples for cTnT testing should be obtai atilio serially upon first assessment and again 3 to 6 hours later. If the clinica l suspicion is high and previous samples have been negative an additional sample may be indicated. Reference: Third [place] Definition of Myocardial Infarction. Journal of the [employer] 2012;60:1581-98 Specimen Anatomical Collection Method Collection Time Receive d Time (Source) Location / / Volume Laterality Blood 03/31/2022 2:15 AM 2 2:26 EDT AM EDT Resulting Agency Comment Spec In Lab Abdulkadir Raya MD CHEMISTRY ORDERABLES Performing Organization Address City/[facility]/ZIP Code Phon e Number [address] POCT Glucose (03/31/2022 1:56 AM EDT) athologist Signature POC Glucose 147 65 - 199 [facility] mg/dL [facility] LABORATORY Comment: Supplemental ranges: <140 mg/dL before meals <180 mg/dL all other times of the day Specimen Anatomical Collection Method Collection Time Receive d Time (Source) Location / / Volume Laterality Blood 03/31/2022 1:56 AM 2 1:56 EDT AM EDT Abdulkadir Raya MD POINT OF CARE TEST ORDERABLE S Performing Organization Address City/State/ZIP [place] [address] POCT Glucose (03/31/2022 12:57 AM EDT) athologist Signature POC Glucose 154 65 - 199 [facility] LABORATORY Comment: Supplemental ranges: <140 mg/dL before meals <180 mg/dL all other times of the day Specimen Anatomical Collection Method Collection Time Receive d Time (Source) Location / / Volume Laterality Blood 03/31/2022 12:57 03/31/2022 AM EDT 12:57 AM EDT Abdulkadir Raya MD POINT OF CARE TEST ORDERABLE S Performing Organization Address City/State/ZIP [place] [address] POCT Glucose (03/30/2022 11:58 PM EDT) athologist Signature POC Glucose 162 65 - 199 [place] mg/dL [facility] LABORATORY Comment: Supplemental ranges: <140 mg/dL before meals <180 mg/dL all other times of the day Specimen Anatomical Collection Method Collection Time Receive d Time (Source) Location / / Volume Laterality Blood 03/30/2022 11:58 03/30/2022 PM EDT 11:58 PM EDT Abdulkadir Raya MD POINT OF CARE TEST ORDERABLE S Performing Organization Address City/[facility]/ZIP Code Phon e Number [address] POCT Glucose (03/30/2022 11:00 PM EDT) athologist Signature POC Glucose 180 65 - 199 [place] mg/dL [facility] LABORATORY Comment: Supplemental ranges: <140 mg/dL before meals <180 mg/dL all other times of the day Specimen Anatomical Collection Method Collection Time Receive d Time (Source) Location / / Volume Laterality Blood 03/30/2022 11:00 03/30/2022 PM EDT 11:00 PM EDT Abdulkadir Raya MD POINT OF CARE TEST ORDERABLE S Performing Organization Address City/State/ZIP [place] [address] POCT Glucose (03/30/2022 10:13 PM EDT) athologist Signature POC Glucose 194 65 - 199 [place]AN[place] mg/dL [facility] LABORATORY Comment: Supplemental ranges: <140 mg/dL before meals <180 mg/dL all other times of the day Specimen Anatomical Collection Method Collection Time Receive d Time (Source) Location / / Volume Laterality Blood 03/30/2022 10:13 03/30/2022 PM EDT 10:13 PM EDT Abdulkadir Raya MD POINT OF CARE TEST ORDERABLE S Performing Organization Address City/State/ZIP [place] [address] (ABNORMAL) BLOOD GAS 2 ARTERIAL (03/30/2022 10:03 PM EDT) athologist Signature pH Art 7.27 7.35 - [facility] (Critical) 7.45 [facility] LABORATORY Comment: Noted by teacher instrumental. pCO2 Art 52 (H) 35 - 45 mmHg [facility] LABORATORY pO2 Art 87 85 - 104 mmHg [facility] LABORATORY HCO3 Art 23.4 20.0 - 26.0 mmol/L [facility] LABORATORY BE Art -3.5 (L) -3.0 - 3.0 mmol/L [facility] LABORATORY Hgb Blood Gas 9.2 (L) 11.7 - 15.5 g/dL [facility] LABORATORY O2HB Art 93.8 (L) 94.0 - 97.0 % [facility] LABORATORY COHB Art 1.0 % [facility] LABORATORY Comment: Nonsmokers: 0.5-1.5% COHB Smokers: Variable, but usually less than 10% Toxic: 20-30% COHB Lethal: Greater than 60% COHB METHB Art 0.5 <=1.5 % [facility] LABORATORY Na Whole Blood 136 135 - 145 mmol/L [facility] LABORATORY K Whole Blood 4.4 3.5 - 5.0 mmol/L [facility] LABORATORY Comment: Please note: Patients with WBC >100,000 may have falsely elevated Potassium levels. Contact the Clinical Chemistry L aboratory if there are any questions. ICa Whole Blood 1.23 1.15 - 1.33 mmol/L [facility] LABORATORY Comment: Note: ??Total bilirubin higher than 20 m g/dL may lead to falsely low ionized calcium. CL Whole Blood 105 98 - 107 mmol/L [facility] LABORATORY Gluc Whole Bld 178 65 - 199 mg/dL [facility] LABORATORY Comment: Diabetes: >=200 mg/dL plus symp toms. Lactate WB 2.0 0.5 - 2.2 mmol/L [facility] LABORATORY FIO2 Art 40 % [facility] LABORATORY PF Ratio Art 218 [facility] LABORATORY Specimen Anatomical Collection Method Collection Time Receive d Time (Source) Location / / Volume Laterality Blood 03/30/2022 10:03 03/30/2022 PM EDT 10:03 PM EDT Abdulkadir Raya MD CHEMISTRY ORDERABLES Performing Organization Address City/State/ZIP [place] [address] (ABNORMAL) POCT Glucose (03/30/2022 9:25 PM EDT) athologist Signature POC Glucose 210 (H) 65 - 199 [facility] mg/dL [facility] LABORATORY Comment: Supplemental ranges: <140 mg/dL before meals <180 mg/dL all other times of the day Specimen Anatomical Collection Method Collection Time Receive d Time (Source) Location / / Volume Laterality Blood 03/30/2022 9:25 PM 9:25 EDT PM EDT Abdulkadir Raya MD POINT OF CARE TEST ORDERABLE S Performing Organization Address City/[facility]/ZIP [place] [address] (ABNORMAL) BLOOD GAS 2 ARTERIAL (03/30/2022 8:27 PM EDT) athologist Signature pH Art 7.26 7.35 - [facility] (Critical) 7.45 [facility] LABORATORY Comment: Noted by teacher instrumental. pCO2 Art 54 (H) 35 - 45 mmHg [facility] LABORATORY pO2 Art 74 (L) 85 - 104 mmHg [facility] LABORATORY HCO3 Art 23.9 20.0 - 26.0 mmol/L [facility] LABORATORY BE Art -3.1 (L) -3.0 - 3.0 mmol/L [facility] LABORATORY Hgb Blood Gas 9.2 (L) 11.7 - 15.5 g/dL [facility] LABORATORY O2HB Art 91.3 (L) 94.0 - 97.0 % [facility] LABORATORY COHB Art 0.6 % [facility] LABORATORY Comment: Nonsmokers: 0.5-1.5% COHB Smokers: Variable, but usually less than 10% Toxic: 20-30% COHB Lethal: Greater than 60% COHB METHB Art 0.6 <=1.5 % [facility] Na Whole Blood 136 135 - 145 mmol/L [facility] K Whole Blood 4.3 3.5 - 5.0 mmol/L [facility] Comment: Please note: Patients with WBC >100,000 may have falsely elevated Potassium levels. Contact the Clinical Chemistry L aboratory if there are any questions. ICa Whole Blood 1.24 1.15 - 1.33 mmol/L [facility] Comment: Note: ??Total bilirubin higher than 20 m g/dL may lead to falsely low ionized calcium. CL Whole Blood 104 98 - 107 mmol/L [facility] Gluc Whole Bld 222 (H) 65 - 199 mg/dL [facility] Comment: Diabetes: >=200 mg/dL plus symp toms. Lactate WB 2.4 (H) 0.5 - 2.2 mmol/L [facility] FIO2 Art 40 % [facility] PF Ratio Art 185 [facility] Specimen Anatomical Collection Method Collection Time Receive d Time (Source) Location / / Volume Laterality Blood 03/30/2022 8:27 PM 2 8:27 EDT PM EDT Abdulkadir Raya MD CHEMISTRY ORDERABLES Performing Organization Address City/State/[place] [address] (ABNORMAL) POCT Glucose (03/30/2022 8:16 PM EDT) athologist Signature POC Glucose 237 (H) 65 - 199 [facility] mg/dL [facility] Comment: Supplemental ranges: <140 mg/dL before meals <180 mg/dL all other times of the day Specimen Anatomical Collection Method Collection Time Receive d Time (Source) Location / / Volume Laterality Blood 03/30/2022 8:16 PM 2 8:16 EDT PM EDT Abdulkadir Raya MD POINT OF CARE TEST ORDERABLE S Performing Organization Address City/[facility]/ZIP [place] [address] (ABNORMAL) Hemoglobin (03/30/2022 8:15 PM EDT) P athologist Signature Hemoglobin 8.5 (L) 11.7 - 15.5 [facility] Specimen Anatomical Collection Method Collection Time Receive d Time (Source) Location / / Volume Laterality Blood 03/30/2022 8:15 PM 2 8:33 EDT PM EDT Resulting Agency Comment Spec In Lab Abdulkadir Raya MD HEMATOLOGY ORDERABLES Performing Organization Address [facility]/ZIP [place] [address] Potassium (03/30/2022 8:15 PM EDT) P athologist Signature Potassium 4.5 3.5 - 5.0 [facility] mmol/L [facility] Comment: Please note: ??Patients with WBC >100,00 0 may have falsely elevated Potassium levels. ??For accurate Potassium quantif ication in these patients send serum separator tube (gold top) for subsequent determinations. ??Contact the Clinical Chemistry Laboratory if there are any qu estions. Specimen Anatomical Collection Method Collection Time Receive d Time (Source) Location / / Volume Laterality Blood 03/30/2022 8:15 PM 2 8:33 EDT PM EDT Resulting Agency Comment Spec In Lab Abdulkadir Raya MD CHEMISTRY ORDERABLES Performing Organization Address City/[facility]/ZIP [place] [address] (ABNORMAL) BLOOD GAS 2 ARTERIAL (03/30/2022 7:07 PM EDT) Patholo gist Method Time Signature pH Art 7.25 7.35 - [facility] (Critical) 7.45 [facility] pCO2 Art 57 (H) 35 - 45 [facility] pO2 Art 62 (L) 85 - 104 [facility] HCO3 Art 24.2 20.0 - [facility] 26.0 [facility] mmol/[facility] BE Art -3.1 (L) -3.0 - 3.0 [facility] mmol/L [facility] Hgb Blood Gas 9.4 (L) 11.7 - [facility] 15.5 g/dL [facility] O2HB Art 85.6 (L) 94.0 - [facility] 97.0 % [facility] COHB Art 0.8 % [facility] Comment: Nonsmokers: 0.5-1.5% COHB Smokers: Variable, but usually less than 10% Toxic: 20-30% COHB Lethal: Greater than 60% COHB METHB Art 0.7 <=1.5 % [facility] Na Whole Blood 136 135 - 145 mmol/L [facility] K Whole Blood 4.4 3.5 - 5.0 mmol/L [facility] Comment: Please note: Patients with WBC >100,000 may have falsely elevated Potassium levels. Contact the Clinical Chemistry L aboratory if there are any questions. ICa Whole Blood 1.27 1.15 - 1.33 mmol/L [facility] Comment: Note: ??Total bilirubin higher than 20 m g/dL may lead to falsely low ionized calcium. CL Whole Blood 103 98 - 107 mmol/L [facility] Gluc Whole Bld 237 (H) 65 - 199 mg/dL [facility] Comment: Diabetes: >=200 mg/dL plus symp toms. Lactate WB 2.4 (H) 0.5 - 2.2 mmol/L [facility] FIO2 Art 40 % [facility] PF Ratio Art 155 [facility] Specimen Anatomical Collection Method Collection Time Receive d Time (Source) Location / / Volume Laterality Blood 03/30/2022 7:07 PM 7:07 EDT PM EDT Abdulkadir Raya MD CHEMISTRY ORDERABLES Performing Organization Address City/State/ZIP [place] [address] (ABNORMAL) BLOOD GAS 2 ARTERIAL (03/30/2022 6:11 PM EDT) P athologist Signature pH Art 7.19 7.35 - [facility] (Critical) 7.45 [facility] Comment: Noted by teacher instrumental. pCO2 Art 64 (Critical) 35 - 45 mmHg [facility] Comment: Noted by teacher instrumental. pO2 Art 206 (H) 85 - 104 mmHg [facility] HCO3 Art 24.1 20.0 - 26.0 mmol/L [facility] BE Art -4.0 (L) -3.0 - 3.0 mmol/L [facility] Hgb Blood Gas 9.1 (L) 11.7 - 15.5 g/dL [facility] O2HB Art 97.6 (H) 94.0 - 97.0 % [facility] COHB Art 0.4 % [facility] Comment: Nonsmokers: 0.5-1.5% COHB Smokers: Variable, but usually less than 10% Toxic: 20-30% COHB Lethal: Greater than 60% COHB METHB Art 0.8 <=1.5 % [facility] Na Whole Blood 136 135 - 145 mmol/L [facility] K Whole Blood 4.4 3.5 - 5.0 mmol/L [facility] Comment: Please note: Patients with WBC >100,000 may have falsely elevated Potassium levels. Contact the Clinical Chemistry L aboratory if there are any questions. ICa Whole Blood 1.28 1.15 - 1.33 mmol/L [facility] Comment: Note: ??Total bilirubin higher than 20 m g/dL may lead to falsely low ionized calcium. CL Whole Blood 103 98 - 107 mmol/L [facility] Gluc Whole Bld 236 (H) 65 - 199 mg/dL [facility] Comment: Diabetes: >=200 mg/dL plus symp toms. Lactate WB 2.2 0.5 - 2.2 mmol/L [facility] FIO2 Art 100 % [facility] PF Ratio Art 206 [facility] Specimen Anatomical Collection Method Collection Time Receive d Time (Source) Location / / Volume Laterality Blood 03/30/2022 6:11 PM 6:11 EDT PM EDT Abdulkadir Raya MD CHEMISTRY ORDERABLES Performing Organization Address City/State/ZIP [place] [address] XR Chest One View (03/30/2022 5:21 PM EDT) Anatomical Region Laterality Modality Chest N/A Digital Radiography Specimen (Source) Anatomical Location Collection Method / Collectio n Time Received Time / Laterality Volume Impressions 03/30/2022 5:31 PM EDT 1. ??Postoperative changes as described above. 2. ??Low lung volumes with bibasilar ate lectasis and small bilateral pleural effusions. Thank you for letting us participate in the care of this patient. ??If you are a health care provider and have any questi ons regarding this report, please contact the number below. ??For patients who have questions please contact the health landcare facilitator that requested your imaging first. ? Narrative 03/30/2022 5:31 PM EDT EXAMINATION: XR CHEST ONE VIEW CLINICAL HISTORY: s/p avr, cabg TECHNIQUE: Portable AP chest radiograph was obtained. COMPARISON: 03/23/2022 FINDINGS: Right IJ approach pulmonary ar terial catheter with its tip at the bifurcation of the main pulmonary arteri es. ET tube with its tip at the level of right inferior clavicular margin, above the paxton. Enteric tube is coursing through the esophagus with tip not inclu ded in the [id number]. At least 3 mediastinal drains are noted. Aortic leonid ve is poorly visualized. Low lung volumes with crowding of the br onchovascular markings and bibasilar atelectasis.Probable small pleural effus ions bilaterally. No sizable pneumothorax.Heart and mediastinal conto urs are unchanged.No free air under the diaphragm. Procedure Note Destiny Castillo MD - 03/30/2022Formatt ing of this note might be different from the original. EXAMINATION: XR CHEST ONE VIEW CLINICAL HISTORY: s/p avr, cabg TECHNIQUE: Portable AP chest radiograph was obtained. COMPARISON: 03/23/2022 FINDINGS: Right IJ approach pulmonary ar terial catheter with its tip at the bifurcation of the main pulmonary arteri es. ET tube with its tip at the level of right inferior clavicular margin, above the paxton. Enteric tube is coursing through the esophagus with tip not inclu ded in the [id number]. At least 3 mediastinal drains are noted. Aortic leonid ve is poorly visualized. Low lung volumes with crowding of the br onchovascular markings and bibasilar atelectasis.Probable small pleural effus ions bilaterally. No sizable pneumothorax.Heart and mediastinal conto urs are unchanged.No free air under the diaphragm. IMPRESSION 1. Postoperative changes as described ab ove. 2. Low lung volumes with bibasilar atele ctasis and small bilateral pleural effusions. Thank you for letting us participate in the care of this patient. If you are a health care provider and have any questi ons regarding this report, please contact the number below. For patients w ho have questions please contact the health landcare facilitator that requested your imaging first. Electronically signed by: Destiny Castillo MD, [facility] ([phone]), at 03/30/2022 5:31 PM Abdulkadir Raya MD IMG DX ORDERABLES (ABNORMAL) BLOOD GAS 2 ARTERIAL (03/30/2022 5:09 PM EDT) P athologist Signature pH Art 7.11 7.35 - [facility] (Critical) 7.45 [facility] Comment: Noted by teacher instrumental. pCO2 Art 80 (Critical) 35 - 45 mmHg [facility] Comment: Noted by teacher instrumental. pO2 Art 175 (H) 85 - 104 mmHg [facility] HCO3 Art 24.9 20.0 - 26.0 mmol/L [facility] BE Art -4.7 (L) -3.0 - 3.0 mmol/L [facility] Hgb Blood Gas 9.5 (L) 11.7 - 15.5 g/dL [facility] O2HB Art 97.0 94.0 - 97.0 % [facility] COHB Art 0.6 % [facility] Comment: Nonsmokers: 0.5-1.5% COHB Smokers: Variable, but usually less than 10% Toxic: 20-30% COHB Lethal: Greater than 60% COHB METHB Art 0.8 <=1.5 % [facility] Na Whole Blood 138 135 - 145 mmol/L [facility] K Whole Blood 4.4 3.5 - 5.0 mmol/L [facility] Comment: Please note: Patients with WBC >100,000 may have falsely elevated Potassium levels. Contact the Clinical Chemistry L aboratory if there are any questions. ICa Whole Blood 1.31 1.15 - 1.33 mmol/L [facility] Comment: Note: ??Total bilirubin higher than 20 m g/dL may lead to falsely low ionized calcium. CL Whole Blood 103 98 - 107 mmol/L [facility] Gluc Whole Bld 229 (H) 65 - 199 mg/dL [facility] Comment: Diabetes: >=200 mg/dL plus symp toms. Lactate WB 2.0 0.5 - 2.2 mmol/L [facility] FIO2 Art 100 % [facility] PF Ratio Art 175 [facility] Specimen Anatomical Collection Method Collection Time Receive d Time (Source) Location / / Volume Laterality Blood 03/30/2022 5:09 PM 2 5:09 EDT PM EDT Abdulkadir Raya MD CHEMISTRY ORDERABLES Performing Organization Address City/[facility]/ZIP [place] [address] EKG 12 Lead (03/30/2022 4:54 PM EDT) Component Value Ref Range Test Analysis Performed Pathologis t Method Time At Signature Ventricular rate 80 BPM MUSE SYSTEM Atrial Rate 84 BPM MUSE SYSTEM P-R Interval 200 ms MUSE SYSTEM QRS Duration 134 ms MUSE SYSTEM Q-T Interval 476 ms MUSE SYSTEM QTC Calculated 548 ms MUSE SYSTEM (Bezet) Calculated P [place] 49 degrees MUSE SYSTEM Calculated R [place] -51 degrees MUSE SYSTEM Calculated T [place] 80 degrees MUSE SYSTEM INTERPRETATION Sinus rhythm with Premature atrial complexes MUSE SYSTEM Right bundle branch block Left anterior fascicular block Bifascicular block Possible Inferior infarct , age undetermined Abnormal ECG When compared with ECG of 19-MAR-2022 10:27, (RBBB and left anterior fascicular block) is now Present Borderline criteria for Inferior infarct are now Present Confirmed by MD Nila, Zhang ([id number]) on 03/31/2022 12:27:4 0 PM Specimen Anatomical Collection Method Collection Time Receive d Time (Source) Location / / Volume Laterality 03/30/2022 4:54 PM 2 EDT 12:27 PM EDT Abdulkadir Raya MD ECG ORDERABLES Performing Organization Address City/[facility]/ZIP Code Phon e Number MUSE SYSTEM Prepare cryoprecipitate (03/30/2022 3:20 PM EDT) P athologist Signature Dispensed? Yes [facility] Specimen Anatomical Collection Method Collection Time Receive d Time (Source) Location / / Volume Laterality Blood 03/30/2022 3:20 PM 2 3:18 EDT PM EDT Abdulkadir Raya MD BLOOD BANK ORDERABLES Performing Organization Address City/[facility]/ZIP [place] [address] (ABNORMAL) BLOOD GAS 2 ARTERIAL (03/30/2022 2:52 PM EDT) Analysis Performed At Patho logist Time Signature pH Art 7.34 (L) 7.35 - [facility] 7.45 [facility] pCO2 Art 42 35 - 45 [facility] mmHg [facility] pO2 Art 94 85 - 104 [facility] HCO3 Art 22.6 20.0 - [facility] 26.0 [facility] mmol/L [facility] BE Art -3.4 (L) -3.0 - 3.0 [facility] mmol/L [facility] Hgb Blood Gas 8.7 (L) 11.7 - [facility] 15.5 g/dL [facility] O2HB Art 95.4 94.0 - [facility] 97.0 % [facility] COHB Art 0.9 % [facility] Comment: Nonsmokers: 0.5-1.5% COHB Smokers: Variable, but usually less than 10% Toxic: 20-30% COHB Lethal: Greater than 60% COHB METHB Art 0.3 <=1.5 % [facility] Na Whole Blood 132 (L) 135 - 145 mmol/L [facility] K Whole Blood 4.2 3.5 - 5.0 mmol/L [facility] Comment: Please note: Patients with WBC >100,000 may have falsely elevated Potassium levels. Contact the Clinical Chemistry L aboratory if there are any questions. ICa Whole Blood 1.03 (L) 1.15 - 1.33 mmol/L [facility] Comment: Note: ??Total bilirubin higher than 20 m g/dL may lead to falsely low ionized calcium. CL Whole Blood 106 98 - 107 mmol/L [facility] Gluc Whole Bld 196 65 - 199 mg/dL [facility] Comment: Diabetes: >=200 mg/dL plus symp toms. Lactate WB 3.8 (H) 0.5 - 2.2 mmol/L [facility] FIO2 Art 63 % [facility] Flow Art 2.0 LPM [facility] PF Ratio Art 149 [facility] Temp Art 35.9 Celsius [facility] Specimen Anatomical Collection Method Collection Time Receive d Time (Source) Location / / Volume Laterality Blood 03/30/2022 2:52 PM 2 2:52 EDT PM EDT Abdulkadir Raya MD CHEMISTRY ORDERABLES Performing Organization Address [facility]/ZIP [place] [address] (ABNORMAL) Fibrinogen (03/30/2022 2:50 PM EDT) P athologist Signature Fibrinogen 197 (L) 200 - 393 [facility] mg/dL [facility] Comment: OR Result called by ?? PREGTM OR Result s read back by: ? called to Sanjay Conway 03/30/22 @1518 at 2022-03-30 15:18:41 A fibrinogen level >100 mg/dL is adequat e for hemostasis in most patients without underlying bleeding disorders. Specimen Anatomical Collection Method Collection Time Receive d Time (Source) Location / / Volume Laterality Blood 03/30/2022 2:50 PM 2 3:01 EDT PM EDT Resulting Agency Comment Spec In Lab Breann Pierre MD HEMATOLOGY ORDERABLES Performing Organization Address [facility]/ZIP [place] [address] APTT (03/30/2022 2:50 PM EDT) P athologist Signature PTT 34 25 - 37 sec [facility] Comment: OR Result called by ?? PREGTM OR Result s read back by: ? called to Sanjay Conway 03/30/22 @1518 at 2022-03-30 15:18:41 The PTT is NOT appropriate for heparin m onitoring. Use the Anti-Xa level for heparin monitoring (HEP UFH) or LMWH mon itoring (HEP LMW). A PTT less than 37 seconds generally indicates adequate hem ostasis. Specimen Anatomical Collection Method Collection Time Receive d Time (Source) Location / / Volume Laterality Blood 03/30/2022 2:50 PM 2 3:01 EDT PM EDT Resulting Agency Comment Spec In Lab Breann Pierre MD HEMATOLOGY ORDERABLES Performing Organization Address City/State/ZIP [place] [address] (ABNORMAL) Prothrombin Time (03/30/2022 2:50 PM EDT) P athologist Signature PT 22.2 (H) 9.4 - 12.5 [facility] Comment: OR Result called by ?? PREGTM OR Result s read back by: ? called to Sanjay Man 03/30/22 @1518 at 2022-03-30 15:18:41 INR 1.9 [facility] Comment: OR Result called by ?? PREGTM OR Result s read back by: ? called to Sanjay Man 03/30/22 @1518 at 2022-03-30 15:18:41 An INR <2.0 indicates adequate procoagul ant activity for hemostasis in most patients without underlying bleeding dis orders, though the INR may not adequately reflect hemostatic capacity i n patients with liver disease and synthetic impairment. The recommended ta rget INR range for therapeutic anticoagulation is 2.0 ? 3.0 for most applications, though lower and higher ranges may be appropriate depending on c linical circumstances. Specimen Anatomical Collection Method Collection Time Receive d Time (Source) Location / / Volume Laterality Blood 03/30/2022 2:50 PM 2 3:01 EDT PM EDT Resulting Agency Comment Spec In Lab Breann Pierre MD HEMATOLOGY ORDERABLES Performing Organization Address City/[facility]/Z[place] [address] (ABNORMAL) Hemogram (03/30/2022 2:50 PM EDT) P athologist Signature WBC 21.6 (H) 4.0 - 9.5 [facility] x10(3)/[facility] LAB[facility]ORY RBC 2.97 (L) 4.00 - [facility] 5.21 [facility] x10(6)/[facility]ORY Hemoglobin 8.0 (L) 11.7 - [facility] 15.5 g/dL [facility] Hematocrit 26.4 (L) 35.7 - [facility] 45.8 % [facility] Comment: This result has been called to SANJAY Warren by Heri Ramirez on 03 30 2022 at 1514, and has been read back. MCV 88.9 82.6 - 94.4 fL [facility] MCH 26.9 (L) 27.1 - 32.0 pg [facility] MCHC 30.3 (L) 31.7 - 35.0 g/dL [facility] Platelets 202 145 - 357 x10(3)/[facility] LABORATORY RDWSD 53.4 (H) 37.0 - 46.0 fL [facility] RDWCV 16.5 (H) 11.5 - 14.1 % [facility] MPV 9.4 7.6 - 12.9 fL [facility] nRBC % Auto 0.0 % [facility] nRBC Abs Auto 0.000 0.000 - 0.000 x10(3)/[facility] LABORATORY Specimen Anatomical Collection Method Collection Time Receive d Time (Source) Location / / Volume Laterality Blood 03/30/2022 2:50 PM 2 3:01 EDT PM EDT Resulting Agency Comment Spec In Lab Breann Pierre MD HEMATOLOGY ORDERABLES Performing Organization Address City/State/ZIP [place] [address] Platelet count (03/30/2022 2:50 PM EDT) P athologist Signature Platelets 202 145 - 357 [facility] x10(3)/[facility] LABORATORY Plat Immature 1.1 0.0 - 7.4 [facility] % % [facility] Comment: Limitation of the Immature Platelet Frac tion (IPF)-May be less reliable when the platelet count is less than 52i287/u L due to statistical imprecision. The IPF value provides an assessment of the Bone Marrow production status. ??It is useful in differentiating Thrombocyto penia caused by platelet destruction/consumption versus decreased production. It also helps to determine the imminent release of platelets and ca n be therefore a helpful parameter in Chemotherapy and Bone marrow transplant patients. ELEVATED IPF value: ?? When the bone marrow is in a state of over production such as when increased destruction and consumption are the unde rlying issue. ?? When the marrow is recovering post ch emotherapy or bone marrow transplant. LOW to NORMAL IPF value: ?? When the bone marrow in not respondin g and is in a decreased state of production. References: [employer] The Clinical Value of the Immature Platelet Fraction (IPF) in Cell Recovery Document Number [id number] 03/2011 [employer] The Role of the Imm ature Platelet Fraction (IPF) in the Differential Diagnosis of Thrombocytopen ia, Document [id number] V002/12/14 P002/14 Specimen Anatomical Collection Method Collection Time Receive d Time (Source) Location / / Volume Laterality Blood 03/30/2022 2:50 PM 2 3:01 EDT PM EDT Resulting Agency Comment Spec In Lab Abdulkadir Raya MD HEMATOLOGY ORDERABLES Performing Organization Address City/State/ZIP [place] [address] (ABNORMAL) BLOOD GAS 2 ARTERIAL (03/30/2022 2:22 PM EDT) Analysis Performed At Patho logist Time Signature pH Art 7.36 7.35 - [facility] 7.45 [facility] pCO2 Art 40 35 - 45 [facility] mmHg [facility] pO2 Art 446 (H) 85 - 104 [facility]ORY HCO3 Art 22.6 20.0 - [facility] 26.0 [facility] mmol/L [facility] BE Art -2.8 -3.0 - 3.0 [facility] [facility] mmol/L [facility] Hgb Blood Gas 8.3 (L) 11.7 - [facility] 15.5 g/dL [facility] O2HB Art 98.3 (H) 94.0 - [facility] 97.0 % [facility] COHB Art 1.3 % [facility] Comment: Nonsmokers: 0.5-1.5% COHB Smokers: Variable, but usually less than 10% Toxic: 20-30% COHB Lethal: Greater than 60% COHB METHB Art 0.3 <=1.5 % [facility] Na Whole Blood 129 (L) 135 - 145 mmol/L [facility] K Whole Blood 4.5 3.5 - 5.0 mmol/L [facility] Comment: Please note: Patients with WBC >100,000 may have falsely elevated Potassium levels. Contact the Clinical Chemistry L aboratory if there are any questions. ICa Whole Blood 1.16 1.15 - 1.33 mmol/L [facility] Comment: Note: ??Total bilirubin higher than 20 m g/dL may lead to falsely low ionized calcium. CL Whole Blood 106 98 - 107 mmol/L [facility] Gluc Whole Bld 209 (H) 65 - 199 mg/dL [facility] Comment: Diabetes: >=200 mg/dL plus symp toms. Lactate WB 3.6 (H) 0.5 - 2.2 mmol/L [facility] Specimen Anatomical Collection Method Collection Time Receive d Time (Source) Location / / Volume Laterality Blood 03/30/2022 2:22 PM 2 2:22 EDT PM EDT Abdulkadir Raya MD CHEMISTRY ORDERABLES Performing Organization Address City/[facility]/ZIP [place] [address] Prepare thawed plasma (03/30/2022 2:10 PM EDT) athologist Signature Dispensed? Yes [facility] Specimen Anatomical Collection Method Collection Time Receive d Time (Source) Location / / Volume Laterality Blood 03/30/2022 2:10 PM 2 2:08 EDT PM EDT Abdulkadir Raya MD BLOOD BANK ORDERABLES Performing Organization Address City/[facility]/ZIP Code Phon e Number [address] Platelet count (03/30/2022 1:52 PM EDT) athologist Signature Platelets 227 145 - 357 OFELIA GARNICA x10(3)/[facility] LABORATORY Plat Immature 0.9 0.0 - 7.4 [facility] GARNICA % % [facility] Comment: Limitation of the Immature Platelet Frac tion (IPF)-May be less reliable when the platelet count is less than 47m274/u L due to statistical imprecision. The IPF value provides an assessment of the Bone Marrow production status. ??It is useful in differentiating Thrombocyto penia caused by platelet destruction/consumption versus decreased production. It also helps to determine the imminent release of platelets and ca n be therefore a helpful parameter in Chemotherapy and Bone marrow transplant patients. ELEVATED IPF value: ?? When the bone marrow is in a state of over production such as when increased destruction and consumption are the unde rlying issue. ?? When the marrow is recovering post ch emotherapy or bone marrow transplant. LOW to NORMAL IPF value: ?? When the bone marrow in not respondin g and is in a decreased state of production. References: [employer] The Clinical Value of the Immature Platelet Fraction (IPF) in Cell Recovery Document Number [id number] 03/2011 [employer] The Role of the Imm ature Platelet Fraction (IPF) in the Differential Diagnosis of Thrombocytopen ia, Document [id number] V05 P002/14 Specimen Anatomical Collection Method Collection Time Receive d Time (Source) Location / / Volume Laterality Blood 03/30/2022 1:52 PM 2 2:01 EDT PM EDT Resulting Agency Comment Spec In Lab Abdulkadir Raya MD HEMATOLOGY ORDERABLES Performing Organization Address City/State/ZIP [place] [address] (ABNORMAL) Hemoglobin and Hematocrit, blood (03/30/2022 1:52 PM EDT) athologist Signature Hemoglobin 7.1 (L) 11.7 - [facility] [place] 15.5 g/dL [facility] Hematocrit 23.1 (L) 35.7 - [facility] 45.8 % [facility] Comment: This result has been called to SANJAY Warren by Heri Ramirez on 03 30 2022 at 1411, and has been read back. Specimen Anatomical Collection Method Collection Time Receive d Time (Source) Location / / Volume Laterality Blood 03/30/2022 1:52 PM 2 2:01 EDT PM EDT Resulting Agency Comment Spec In Lab Abdulkadir Raya MD HEMATOLOGY ORDERABLES Performing Organization Address City/[facility]/ZIP Code Phon e Number [place] [phone] Fibrinogen (03/30/2022 1:52 PM EDT) P athologist Signature Fibrinogen 208 200 - 393 [facility] Comment: OR Result called by ?? PREGTM OR Result s read back by: ? called to sanjay Conway 03/30/22 @1429 at 2022-03-30 14:29:22 A fibrinogen level >100 mg/dL is adequat e for hemostasis in most patients without underlying bleeding disorders. Specimen Anatomical Collection Method Collection Time Receive d Time (Source) Location / / Volume Laterality Blood 03/30/2022 1:52 PM 2 2:01 EDT PM EDT Resulting Agency Comment Spec In Lab Abdulkadir Raya MD HEMATOLOGY ORDERABLES Performing Organization Address City/[facility]/ZIP [place] [address] (ABNORMAL) BLOOD GAS 2 ARTERIAL (03/30/2022 1:51 PM EDT) Analysis Performed At Patho logist Time Signature pH Art 7.41 7.35 - [facility] 7.45 [facility] pCO2 Art 40 35 - 45 [facility] mmHg [facility] pO2 Art 497 (H) 85 - 104 [facility] mmHg [facility] HCO3 Art 24.4 20.0 - [facility] 26.0 [facility] mmol/L [facility] BE Art -0.3 -3.0 - 3.0 [facility] mmol/L [facility] Hgb Blood Gas 7.9 (L) 11.7 - [facility] 15.5 g/dL [facility] O2HB Art 98.7 (H) 94.0 - [facility] 97.0 % [facility] COHB Art 0.8 % [facility] Comment: Nonsmokers: 0.5-1.5% COHB Smokers: Variable, but usually less than 10% Toxic: 20-30% COHB Lethal: Greater than 60% COHB METHB Art 0.3 <=1.5 % [facility] Na Whole Blood 131 (L) 135 - 145 mmol/L [facility] K Whole Blood 4.0 3.5 - 5.0 mmol/L [facility] Comment: Please note: Patients with WBC >100,000 may have falsely elevated Potassium levels. Contact the Clinical Chemistry L aboratory if there are any questions. ICa Whole Blood 0.93 (L) 1.15 - 1.33 mmol/L [facility] Comment: Note: ??Total bilirubin higher than 20 m g/dL may lead to falsely low ionized calcium. CL Whole Blood 105 98 - 107 mmol/L [facility] Gluc Whole Bld 207 (H) 65 - 199 mg/dL [facility] Comment: Diabetes: >=200 mg/dL plus symp toms. Lactate WB 3.1 (H) 0.5 - 2.2 mmol/L [facility] Specimen Anatomical Collection Method Collection Time Receive d Time (Source) Location / / Volume Laterality Blood 03/30/2022 1:51 PM 2 1:51 EDT PM EDT Abdulkadir aRya MD CHEMISTRY ORDERABLES Performing Organization Address City/State/ZIP [place] [address] (ABNORMAL) BLOOD GAS 2 VENOUS (03/30/2022 1:11 PM EDT) Analysis Performed At Patho logist Time Signature pH All 7.31 (L) 7.32 - [facility] 7.42 [facility] pCO2 All 49 41 - 51 [facility] LABORATORY pO2 All 60 (H) 25 - 40 [facility] LABORATORY HCO3 All 24.0 mmol/L [facility] BE All -2.3 mmol/L [facility] Hgb Blood Gas 7.8 (L) 11.7 - [facility] 15.5 g/dL [facility] O2HB All 84.5 % [facility] COHB All 1.3 % [facility] Comment: Nonsmokers: 0.5-1.5% COHB Smokers: Variable, but usually less than 10% Toxic: 20-30% COHB Lethal: Greater than 60% COHB METHB All 0.3 <=1.5 % [facility] Na Whole Blood 131 (L) 135 - 145 mmol/L [facility] K Whole Blood 4.3 3.5 - 5.0 mmol/L [facility] Comment: Please note: Patients with WBC >100,000 may have falsely elevated Potassium levels. Contact the Clinical Chemistry L aboratory if there are any questions. ICa Whole Blood 0.92 (Critical) 1.15 - 1.33 mmol/L [facility] Comment: Note: ??Total bilirubin higher than 20 m g/dL may lead to falsely low ionized calcium. CL Whole Blood 104 98 - 107 mmol/L [facility] Gluc Whole Bld 221 (H) 65 - 199 mg/dL [facility] Comment: Diabetes: >=200 mg/dL plus symp toms Lactate WB 3.2 (H) 0.5 - 2.2 mmol/L [facility] BGas Source Venous [facility] Specimen Anatomical Collection Method Collection Time Receive d Time (Source) Location / / Volume Laterality Blood 03/30/2022 1:11 PM 2 1:11 EDT PM EDT Abdulkadir Raya MD CHEMISTRY ORDERABLES Performing Organization Address City/State/ZIP [place] [address] (ABNORMAL) BLOOD GAS 2 ARTERIAL (03/30/2022 1:08 PM EDT) Analysis Performed At Patho logist Time Signature pH Art 7.33 (L) 7.35 - [facility] 7.45 [facility] pCO2 Art 45 35 - 45 [facility] LABORATORY pO2 Art 531 (H) 85 - 104 [facility] mmHg [facility] HCO3 Art 23.1 20.0 - [facility] 26.0 [facility] mmol/[facility] BE Art -2.9 -3.0 - 3.0 [facility] mmol/L [facility] Hgb Blood Gas 7.8 (L) 11.7 - [facility] 15.5 g/dL [facility] O2HB Art 98.5 (H) 94.0 - [facility] 97.0 % [facility] COHB Art 1.1 % [facility] Comment: Nonsmokers: 0.5-1.5% COHB Smokers: Variable, but usually less than 10% Toxic: 20-30% COHB Lethal: Greater than 60% COHB METHB Art 0.3 <=1.5 % [facility] Na Whole Blood 131 (L) 135 - 145 mmol/L [facility] K Whole Blood 4.5 3.5 - 5.0 mmol/L [facility] Comment: Please note: Patients with WBC >100,000 may have falsely elevated Potassium levels. Contact the Clinical Chemistry L aboratory if there are any questions. ICa Whole Blood 0.88 (Critical) 1.15 - 1.33 mmol/L [facility] Comment: Note: ??Total bilirubin higher than 20 m g/dL may lead to falsely low ionized calcium. CL Whole Blood 104 98 - 107 mmol/L [facility] Gluc Whole Bld 220 (H) 65 - 199 mg/dL [facility] Comment: Diabetes: >=200 mg/dL plus symp toms. Lactate WB 3.2 (H) 0.5 - 2.2 mmol/L [facility] Specimen Anatomical Collection Method Collection Time Receive d Time (Source) Location / / Volume Laterality Blood 03/30/2022 1:08 PM 1:08 EDT PM EDT Abdulkadir Raya MD CHEMISTRY ORDERABLES Performing Organization Address City/State/ZIP [place] [address] (ABNORMAL) BLOOD GAS 2 ARTERIAL (03/30/2022 12:31 PM EDT) Analysis Performed At Patho logist Time Signature pH Art 7.37 7.35 - [facility] 7.45 [facility] pCO2 Art 36 35 - 45 [facility] mmHg [facility] pO2 Art 523 (H) 85 - 104 [facility]ORY HCO3 Art 20.6 20.0 - [facility] 26.0 [facility] mmol/L [facility] BE Art -4.7 (L) -3.0 - 3.0 [facility] mmol/L [facility] Hgb Blood Gas 9.6 (L) 11.7 - [facility] 15.5 g/dL [facility] O2HB Art 98.7 (H) 94.0 - [facility] 97.0 % [facility] COHB Art 0.9 % [facility] Comment: Nonsmokers: 0.5-1.5% COHB Smokers: Variable, but usually less than 10% Toxic: 20-30% COHB Lethal: Greater than 60% COHB METHB Art 0.3 <=1.5 % [facility] Na Whole Blood 131 (L) 135 - 145 mmol/L [facility] K Whole Blood 4.3 3.5 - 5.0 mmol/L [facility] Comment: Please note: Patients with WBC >100,000 may have falsely elevated Potassium levels. Contact the Clinical Chemistry L aboratory if there are any questions. ICa Whole Blood 1.00 (L) 1.15 - 1.33 mmol/L [facility] Comment: Note: ??Total bilirubin higher than 20 m g/dL may lead to falsely low ionized calcium. CL Whole Blood 104 98 - 107 mmol/L [facility] Gluc Whole Bld 202 (H) 65 - 199 mg/dL [facility] Comment: Diabetes: >=200 mg/dL plus symp toms. Lactate WB 2.2 0.5 - 2.2 mmol/L [facility] Specimen Anatomical Collection Method Collection Time Receive d Time (Source) Location / / Volume Laterality Blood 03/30/2022 12:31 03/30/2022 PM EDT 12:31 PM EDT Abdulkadir Raya MD CHEMISTRY ORDERABLES Performing Organization Address City/State/ZIP [place] [address] (ABNORMAL) BLOOD GAS 2 ARTERIAL (03/30/2022 12:05 PM EDT) Analysis Performed At Patho logist Time Signature pH Art 7.40 7.35 - [facility] 7.45 [facility] pCO2 Art 34 (L) 35 - 45 [facility] mmHg [facility] pO2 Art 524 (H) 85 - 104 [facility] LABORATORY HCO3 Art 20.8 20.0 - [facility] 26.0 [facility] mmol/L [facility] BE Art -3.9 (L) -3.0 - 3.0 [facility] mmol/L [facility] Hgb Blood Gas 10.2 (L) 11.7 - [facility] 15.5 g/dL [facility] O2HB Art 98.7 (H) 94.0 - [facility] 97.0 % [facility] COHB Art 0.9 % [facility] Comment: Nonsmokers: 0.5-1.5% COHB Smokers: Variable, but usually less than 10% Toxic: 20-30% COHB Lethal: Greater than 60% COHB METHB Art 0.3 <=1.5 % [facility] Na Whole Blood 129 (L) 135 - 145 mmol/L [facility] K Whole Blood 4.7 3.5 - 5.0 mmol/L [facility] Comment: Please note: Patients with WBC >100,000 may have falsely elevated Potassium levels. Contact the Clinical Chemistry L aboratory if there are any questions. ICa Whole Blood 0.98 (L) 1.15 - 1.33 mmol/L [facility] Comment: Note: ??Total bilirubin higher than 20 m g/dL may lead to falsely low ionized calcium. CL Whole Blood 104 98 - 107 mmol/L [facility] Gluc Whole Bld 231 (H) 65 - 199 mg/dL [facility] Comment: Diabetes: >=200 mg/dL plus symp toms. Lactate WB 2.1 0.5 - 2.2 mmol/L [facility] Specimen Anatomical Collection Method Collection Time Receive d Time (Source) Location / / Volume Laterality Blood 03/30/2022 12:05 03/30/2022 PM EDT 12:05 PM EDT Abdulkadir Raya MD CHEMISTRY ORDERABLES Performing Organization Address City/[facility]/ZIP Code Phon e Number [address] Prepare cryoprecipitate (03/30/2022 11:45 AM EDT) P athologist Signature Dispensed? Yes [facility] Specimen Anatomical Collection Method Collection Time Receive d Time (Source) Location / / Volume Laterality Blood 03/30/2022 11:45 03/30/2022 AM EDT 11:45 AM EDT Abdulkadir Raya MD BLOOD BANK ORDERABLES Performing Organization Address City/[facility]/ZIP [place] [address] Prepare Platelets, Apheresis (03/30/2022 11:45 AM EDT) P athologist Signature Dispensed? Yes [facility] Specimen Anatomical Collection Method Collection Time Receive d Time (Source) Location / / Volume Laterality Blood 03/30/2022 11:45 03/30/2022 AM EDT 11:45 AM EDT Abdulkadir Raya MD BLOOD BANK ORDERABLES Performing Organization Address City/[facility] [place] [address] (ABNORMAL) BLOOD GAS 2 ARTERIAL (03/30/2022 11:32 AM EDT) Analysis Performed At Patho logist Time Signature pH Art 7.42 7.35 - [facility] 7.45 [facility] pCO2 Art 36 35 - 45 [facility] LABORATORY pO2 Art 629 (H) 85 - 104 [facility]ORATORY HCO3 Art 22.9 20.0 - [facility] 26.0 [facility] mmol/L [facility] BE Art -1.6 -3.0 - 3.0 [facility] mmol/L [facility] Hgb Blood Gas 9.7 (L) 11.7 - [facility] 15.5 g/dL [facility] O2HB Art 99.1 (H) 94.0 - [facility] 97.0 % [facility] COHB Art 0.2 % [facility] Comment: Nonsmokers: 0.5-1.5% COHB Smokers: Variable, but usually less than 10% Toxic: 20-30% COHB Lethal: Greater than 60% COHB METHB Art 0.3 <=1.5 % [facility] Na Whole Blood 130 (L) 135 - 145 mmol/L [facility] K Whole Blood 5.2 (H) 3.5 - 5.0 mmol/L [facility] Comment: Please note: Patients with WBC >100,000 may have falsely elevated Potassium levels. Contact the Clinical Chemistry L aboratory if there are any questions. ICa Whole Blood 0.99 (L) 1.15 - 1.33 mmol/L [facility] Comment: Note: ??Total bilirubin higher than 20 m g/dL may lead to falsely low ionized calcium. CL Whole Blood 103 98 - 107 mmol/L [facility] Gluc Whole Bld 240 (H) 65 - 199 mg/dL [facility] Comment: Diabetes: >=200 mg/dL plus symp toms. Lactate WB 1.8 0.5 - 2.2 mmol/L [facility] Specimen Anatomical Collection Method Collection Time Receive d Time (Source) Location / / Volume Laterality Blood 03/30/2022 11:32 03/30/2022 AM EDT 11:32 AM EDT Abdulkadir Ryaa MD CHEMISTRY ORDERABLES Performing Organization Address City/State/ZIP [place] [address] (ABNORMAL) BLOOD GAS 2 VENOUS (03/30/2022 10:55 AM EDT) P athologist Signature pH All 7.35 7.32 - [facility] 7.42 [facility] pCO2 All 41 41 - 51 [facility] LABORATORY pO2 All 88 (H) 25 - 40 [facility] LABORATORY HCO3 All 22.4 mmol/L [facility] BE All -3.1 mmol/L [facility] Hgb Blood Gas 9.0 (L) 11.7 - [facility] 15.5 g/dL [facility] O2HB All 94.5 % [facility] COHB All 0.8 % [facility] Comment: Nonsmokers: 0.5-1.5% COHB Smokers: Variable, but usually less than 10% Toxic: 20-30% COHB Lethal: Greater than 60% COHB METHB All 0.3 <=1.5 % [facility] Na Whole Blood 129 (L) 135 - 145 mmol/L [facility] K Whole Blood 5.8 (H) 3.5 - 5.0 mmol/L [facility] Comment: Please note: Patients with WBC >100,000 may have falsely elevated Potassium levels. Contact the Clinical Chemistry L aboratory if there are any questions. ICa Whole Blood 0.95 (L) 1.15 - 1.33 mmol/L [facility] Comment: Note: ??Total bilirubin higher than 20 m g/dL may lead to falsely low ionized calcium. CL Whole Blood 101 98 - 107 mmol/L [facility] Gluc Whole Bld 229 (H) 65 - 199 mg/dL [facility] Comment: Diabetes: >=200 mg/dL plus symp toms Lactate WB 1.9 0.5 - 2.2 mmol/L [facility] BGas Source Venous [facility] Specimen Anatomical Collection Method Collection Time Receive d Time (Source) Location / / Volume Laterality Blood 03/30/2022 10:55 03/30/2022 AM EDT 10:55 AM EDT Abdulkadir Raya MD CHEMISTRY ORDERABLES Performing Organization Address City/State/Z[place] [address] (ABNORMAL) BLOOD GAS 2 ARTERIAL (03/30/2022 10:53 AM EDT) Analysis Performed At Patho logist Time Signature pH Art 7.38 7.35 - [facility] 7.45 [facility] pCO2 Art 40 35 - 45 [facility] mmHg [facility] pO2 Art 612 (H) 85 - 104 [facility] mmHg [facility] HCO3 Art 23.1 20.0 - [facility] 26.0 [facility] mmol/L [facility] BE Art -1.9 -3.0 - 3.0 [facility] mmol/L [facility] Hgb Blood Gas 9.0 (L) 11.7 - [facility] 15.5 g/dL [facility] O2HB Art 98.9 (H) 94.0 - [facility] 97.0 % [facility] COHB Art 0.5 % [facility] Comment: Nonsmokers: 0.5-1.5% COHB Smokers: Variable, but usually less than 10% Toxic: 20-30% COHB Lethal: Greater than 60% COHB METHB Art 0.3 <=1.5 % [facility] Na Whole Blood 129 (L) 135 - 145 mmol/L [facility] K Whole Blood 5.9 (H) 3.5 - 5.0 mmol/L [facility] Comment: Please note: Patients with WBC >100,000 may have falsely elevated Potassium levels. Contact the Clinical Chemistry L aboratory if there are any questions. ICa Whole Blood 0.94 (L) 1.15 - 1.33 mmol/L [facility] Comment: Note: ??Total bilirubin higher than 20 m g/dL may lead to falsely low ionized calcium. CL Whole Blood 102 98 - 107 mmol/L [facility] Gluc Whole Bld 229 (H) 65 - 199 mg/dL [facility] Comment: Diabetes: >=200 mg/dL plus symp toms. Lactate WB 2.0 0.5 - 2.2 mmol/L [facility] Specimen Anatomical Collection Method Collection Time Receive d Time (Source) Location / / Volume Laterality Blood 03/30/2022 10:53 03/30/2022 AM EDT 10:53 AM EDT Abdulkadir Raya MD CHEMISTRY ORDERABLES Performing Organization Address City/[facility]/ZIP Code Phon e Number [address] Surgical Pathology Report (03/30/2022 10:52 AM EDT) Component Value Ref Test Analysis Performed At [facility] Range Method Time Signature Surgical [id number] ? Location: [facility]; 30; A [facility] Report The signing pathologist has (i) examined the relevant preparation(s) for the [facility] specimen(s) and (ii) rendered or confirmed the diagnosis(es) . HOSPITAL LABORATORY . ?Surgic al Pathology DIAGNOSIS Aortic valve leaflets, excision: Valve leaflets with myxoid degeneration, nodular fibrosis an d dystrophic calcifications. Electronically signed by: ?Erinn Coleman MD Verified: ??04/01/2022 17:11 ??Pathologist Performed at: ??-[facility] Dept. of Pathology, [place], [place] SPECIMEN(S) SUBMITTED A - Aortic Valve Leaflets, excision (1) CLINICAL INFORMATION Aortic stenosis SPECIMEN PROCESSING A - Labeled/Fixative: Aortic valve leaflets, saline. Quantity/Size: Multiple, 3 x 2 x 2 cm in aggregate. Tissue Description: Fragmented, semi-lunar valve with calcif ic debris. Number semi-lunar valve cusps identified: Three Average size of cusps: 2.2 x 1.3 x 0.4 cm Free edges: Hampton-white, pliable Sinuses: Focal calcific nodules Sections Processing Blocks submitted for decalcification: A1. Radiology Rn sections in 1 cassette labeled A1. ??sns Specimen (Source) Anatomical Collection Method Collection Time Re ceived Time Location / / Volume Laterality 03/30/2022 10:52 AM EDT Abdulkadir Raya MD PATHOLOGY/CYTOLOGY ORDERABLE S Performing Organization Address City/[facility]/ZIP Code Phon e Number [address] Specimen to Pathology (03/30/2022 10:52 AM EDT) Specimen Anatomical Collection Method Collection Time Receive d Time (Source) Location / / Volume Laterality AP Specimen 03/30/2022 10:52 03/30/2022 AM EDT 10:52 AM EDT Narrative [facility] LABORAT ORY - 03/30/2022 10:52 AM EDT Specimen requisition ordered. ??Separate Pathology report to follow Abdulkadir Raya MD PATHOLOGY/CYTOLOGY ORDERABLE S Performing Organization Address City/State/ZIP [place] [address] (ABNORMAL) BLOOD GAS 2 ARTERIAL (03/30/2022 10:33 AM EDT) Analysis Performed At Patho logist Time Signature pH Art 7.35 7.35 - [facility] 7.45 [facility] LABORATORY pCO2 Art 42 35 - 45 [facility] LABORATORY pO2 Art 206 (H) 85 - 104 [facility] LABORATORY HCO3 Art 22.8 20.0 - [facility] 26.0 [facility] mmol/L [facility] LABORATORY BE Art -2.8 -3.0 - 3.0 [facility] mmol/L [facility] LABORATORY Hgb Blood Gas 8.7 (L) 11.7 - [facility] 15.5 g/dL [facility] LABORATORY O2HB Art 97.9 (H) 94.0 - [facility] 97.0 % [facility] LABORATORY COHB Art 1.3 % [facility] LAB[facility]ORY Comment: Nonsmokers: 0.5-1.5% COHB Smokers: Variable, but usually less than 10% Toxic: 20-30% COHB Lethal: Greater than 60% COHB METHB Art 0.3 <=1.5 % [facility] LABORATORY Na Whole Blood 128 (L) 135 - 145 mmol/L [facility] LABORATORY K Whole Blood 6.4 (Critical) 3.5 - 5.0 mmol/L M [facility] LABORATORY Comment: Please note: Patients with WBC >100,000 may have falsely elevated Potassium levels. Contact the Clinical Chemistry L aboratory if there are any questions. ICa Whole Blood 0.83 (Critical) 1.15 - 1.33 mmol/L [facility] LABOR[facility]ORY Comment: Note: ??Total bilirubin higher than 20 m g/dL may lead to falsely low ionized calcium. CL Whole Blood 101 98 - 107 mmol/L [facility] LABORATORY Gluc Whole Bld 216 (H) 65 - 199 mg/dL [facility] LABORATORY Comment: Diabetes: >=200 mg/dL plus symp toms. Lactate WB 1.8 0.5 - 2.2 mmol/L [facility] LABORATORY Specimen Anatomical Collection Method Collection Time Receive d Time (Source) Location / / Volume Laterality Blood 03/30/2022 10:33 03/30/2022 AM EDT 10:33 AM EDT Abdulkadir Raya MD CHEMISTRY ORDERABLES Performing Organization Address City/State/ZIP [place] [address] (ABNORMAL) BLOOD GAS 2 VENOUS (03/30/2022 10:24 AM EDT) [facility] gist Method Time Signature pH All 7.27 7.32 - [facility] (Critical) 7.42 [facility] LABORATORY pCO2 All 45 41 - 51 [facility] LABORATORY pO2 All 62 (H) 25 - 40 [facility] LABORATORY HCO3 All 20.3 mmol/L [facility] LABOR[facility]ORY BE All -6.6 mmol/L [facility] LABORATORY Hgb Blood Gas 9.4 (L) 11.7 - [facility] 15.5 g/dL [facility] LABORATORY O2HB All 86.6 % [facility] LABOR[facility]ORY COHB All 1.3 % [facility] Comment: Nonsmokers: 0.5-1.5% COHB Smokers: Variable, but usually less than 10% Toxic: 20-30% COHB Lethal: Greater than 60% COHB METHB All 0.3 <=1.5 % [facility] LABORATORY Na Whole Blood 129 (L) 135 - 145 mmol/L [facility] K Whole Blood 5.0 3.5 - 5.0 mmol/L [facility] Comment: Please note: Patients with WBC >100,000 may have falsely elevated Potassium levels. Contact the Clinical Chemistry L aboratory if there are any questions. ICa Whole Blood 1.00 (L) 1.15 - 1.33 mmol/L [facility] Comment: Note: ??Total bilirubin higher than 20 m g/dL may lead to falsely low ionized calcium. CL Whole Blood 100 98 - 107 mmol/L [facility] Gluc Whole Bld 140 65 - 199 mg/dL [facility] Comment: Diabetes: >=200 mg/dL plus symp toms Lactate WB 1.2 0.5 - 2.2 mmol/L [facility] BGas Source Venous [facility] LABORATORY Specimen Anatomical Collection Method Collection Time Receive d Time (Source) Location / / Volume Laterality Blood 03/30/2022 10:24 03/30/2022 AM EDT 10:24 AM EDT Abdulkadir Raya MD CHEMISTRY ORDERABLES Performing Organization Address City/State/ZIP [place] [address] (ABNORMAL) BLOOD GAS 2 ARTERIAL (03/30/2022 10:22 AM EDT) Analysis Performed At Patho logist Time Signature pH Art 7.32 (L) 7.35 - [facility] 7.45 [facility] LABORATORY pCO2 Art 43 35 - 45 [facility] mmHg [facility] LABORATORY pO2 Art 517 (H) 85 - 104 [facility] LABORATORY HCO3 Art 21.6 20.0 - [facility] 26.0 [facility] mmol/L [facility] LABOR[facility] BE Art -4.6 (L) -3.0 - 3.0 [facility] mmol/L [facility] LABORATORY Hgb Blood Gas 9.3 (L) 11.7 - [facility] 15.5 g/dL [facility] LABORATORY O2HB Art 98.9 (H) 94.0 - [facility] 97.0 % [facility] LABORATORY COHB Art 0.5 % [facility] Comment: Nonsmokers: 0.5-1.5% COHB Smokers: Variable, but usually less than 10% Toxic: 20-30% COHB Lethal: Greater than 60% COHB METHB Art 0.3 <=1.5 % [facility] LABORATORY Na Whole Blood 128 (L) 135 - 145 mmol/L [facility] K Whole Blood 5.1 (H) 3.5 - 5.0 mmol/L [facility] Comment: Please note: Patients with WBC >100,000 may have falsely elevated Potassium levels. Contact the Clinical Chemistry L aboratory if there are any questions. ICa Whole Blood 0.96 (L) 1.15 - 1.33 mmol/L [facility] Comment: Note: ??Total bilirubin higher than 20 m g/dL may lead to falsely low ionized calcium. CL Whole Blood 100 98 - 107 mmol/L [facility] Gluc Whole Bld 146 65 - 199 mg/dL [facility] Comment: Diabetes: >=200 mg/dL plus symp toms. Lactate WB 1.3 0.5 - 2.2 mmol/L [facility] Specimen Anatomical Collection Method Collection Time Receive d Time (Source) Location / / Volume Laterality Blood 03/30/2022 10:22 03/30/2022 AM EDT 10:22 AM EDT Abdulkadir Raya MD CHEMISTRY ORDERABLES Performing Organization Address City/State/ZIP [place] [address] Prepare Coag Factors (Non-Hemophilia) (03/30/2022 9:50 AM EDT) P athologist Signature Dispensed? Yes [facility] LABORATORY Specimen Anatomical Collection Method Collection Time Receive d Time (Source) Location / / Volume Laterality Blood 03/30/2022 9:50 AM 9:46 EDT AM EDT Abdulkadir Raya MD BLOOD BANK ORDERABLES Performing Organization Address City/[facility]/ZIP [place] [address] (ABNORMAL) BLOOD GAS 2 ARTERIAL (03/30/2022 8:27 AM EDT) Analysis Performed At Patho logist Time Signature pH Art 7.31 (L) 7.35 - [facility] 7.45 [facility] LABORATORY pCO2 Art 46 (H) 35 - 45 [facility] mmHg [facility] LABORATORY pO2 Art 154 (H) 85 - 104 [facility] LABORATORY HCO3 Art 22.5 20.0 - [facility] 26.0 [facility] mmol/L [facility] LAB[facility] BE Art -3.8 (L) -3.0 - 3.0 [facility] mmol/L [facility] LABORATORY Hgb Blood Gas 13.3 11.7 - [facility] 15.5 g/dL [facility] O2HB Art 97.6 (H) 94.0 - [facility] 97.0 % [facility]ORY COHB Art 0.9 % [facility] Comment: Nonsmokers: 0.5-1.5% COHB Smokers: Variable, but usually less than 10% Toxic: 20-30% COHB Lethal: Greater than 60% COHB METHB Art 0.3 <=1.5 % [facility] LABORATORY Na Whole Blood 139 135 - 145 mmol/L [facility] K Whole Blood 4.7 3.5 - 5.0 mmol/L [facility] Comment: Please note: Patients with WBC >100,000 may have falsely elevated Potassium levels. Contact the Clinical Chemistry L aboratory if there are any questions. ICa Whole Blood 1.16 1.15 - 1.33 mmol/L [facility] Comment: Note: ??Total bilirubin higher than 20 m g/dL may lead to falsely low ionized calcium. CL Whole Blood 103 98 - 107 mmol/L [facility] Gluc Whole Bld 136 65 - 199 mg/dL [facility] Comment: Diabetes: >=200 mg/dL plus symp toms. Lactate WB 1.5 0.5 - 2.2 mmol/L [facility] FIO2 Art 75 % [facility]OR[facility]ORY Flow Art 1.0 LPM [facility] LABORATORY PF Ratio Art 205 [facility] LABORATORY Temp Art 36.8 Cels[facility] Specimen Anatomical Collection Method Collection Time Receive d Time (Source) Location / / Volume Laterality Blood 03/30/2022 8:27 AM 8:27 EDT AM EDT Abdulkadir Raya MD CHEMISTRY ORDERABLES Performing Organization Address City/State/ZIP [place] [address] Transesophageal Echo/OR (03/30/2022 7:13 AM EDT) Anatomical Region Laterality Modality Cardiac Other Specimen (Source) Anatomical Collection Method Collection Time Re ceived Time Location / / Volume Laterality 03/30/2022 7:13 AM EDT Narrative 03/30/2022 5:05 PM EDT ? Version: 1 ? [facility] ? [address] ?[place], [place] ?? [address] ?Voice: ?Fax: Name: MARCELLE ALBARRAN ?Study Date: 03/30/2022, 7: 13 AM ?Patient Location: [facility] : 1950 (MM/DD/YYYY) ? Age: 72 Years Gender: Female Ordering Physician: [id number]^NELLANE^ABDULKADIR^^^^^^EPIC^^^^P ROVID Referring Physician: [id number]^NELLANE^ABDULKADIR^^^^^^EPIC^^^^P ROVID ? Conclusions Preoperative JAVY: 1. There is severe aortic stenosis with a mean gradient across the aortic valve is 25 mmHg. The aortic valve area calculated using t he continuity equation is 0.81 cm2. There is mild to moderate aortic regurgi tation. The aortic jet is 26% of the LVOT diameter. The PHT is 407 msec. 2. Severe calcification of the mitral an nulus most prominent at the commissures with no evidence of caseation. There is moderate mitral regurgitation with an effective regurgitant orifice area of ca lculated at 34 cm2 and regurgitant volume of 50 mL by PISA calculation. There is mild (>1.5 cm2) mitral stenosis with an estimated mean gradient across the mitral valve of 4 mmHg and a mitral valve area calculated by planimetry is 1.6 cm2. 3. The left ventricular ejection fractio n is 55% by 3D volumetric assessment and 54% by Muniz's biplane. There are no r egional wall motion abnormalities. 4. There is severe calcification of aort ic arch and moderate calcification of the descending aorta. The proximal ascending has intimal thickening. There are no visible mobile plaques. 5. A Chiari network is present (normal e mbryologic variant). There is no evidence of a mass or thrombus. There is no paten t foramen ovale. 6. There are no other hemodynamically si gnificant valvular abnormalities. Post-operative JAVY s/p bioprosthetic Ins piris 19 mm valve in the aortic position, 2 vessel CABG and ascending aorta patch and root revision. 1. A 19 mm Inspiris valve is well seated in the aortic position with no paravalvular leak. The mean gradient across the aortic valv e is 15 mmHg. The peak instantaneous gradient across the aortic valve is 32 m mHg. 2. There is moderate mitral regurgitatio n. 3. The right ventricular systolic functi on is moderately decreased. RV function by TAPSE (tricuspid annular plane systolic excursion) is abnormal. 4. The left ventricular ejection fractio n is 55 % by Muniz's biplane. There are no segmental wall motion abnormalities. 5. There is moderate tricuspid regurgita tion Early hepatic vein flow reversal. 6. No evidence of dissection after remov al of the aortic cannula. 7. The JAVY probe was removed at the end of the case without incident. Pre Procedure Findings The left ventricular ejection fraction i s 55% by 3D volumetric assessment. The left ventricular ejection fraction is 54 % by Muniz's biplane. There are no segmental wall motion abnormalities. Right ventricular systolic function is n ormal. RV function by TAPSE (tricuspid annular plane systolic excursion) is nor mal. There is no evidence of a mass or thromb us. There is no evidence for a patent foramen ovale. A Chiari network is prese nt (normal embryologic variant). No evidence of a mass or thrombus. The aortic valve is tricuspid. The aorti c valve is severely calcified. There is mild to moderate aortic regurgitation. T he aortic jet is 26% of the LVOT diameter. The PHT is 407 msec. There is severe aor tic stenosis. The mean gradient across the aortic valve is 25 mmHg. The peak instan taneous gradient across the aortic valve is 42 mmHg. The aortic valve area calcul ated using the continuity equation is 0.81 cm2. Severe thickening of the mitral leaflets . Severe calcification of the mitral annulus. There is moderate mitral regurg itation. The effective regurgitant orifice area is calculated at 34 cm2. The regurg itant volume is calculated at 50 ml. There is mild (>1.5 cm2) mitral stenosis. The estimated mean gradient across the mitral valve is 4 mmHg. The mitral valve area c alculated by planimetry is 1.6 cm2. There is mild tricuspid regurgitation. There is trace pulmonic valve regurgitat ion. Severe calcification of aortic arch and moderate calcification of the descending aorta. The proximal ascending has intima l thickening. There are no visible mobile plaques. The pericardium appears normal. Post Procedure Findings Patient is s/p 2-vessel CABG. Patient is s/p bioprosthetic aortic valve replacement. Ascending aorta and root re pair. Left ventricle is of normal size. The le ft ventricular ejection fraction is 55 % by Muniz's biplane. There are no segme ntal wall motion abnormalities,. Right ventricular systolic function is m oderately decreased. RV function by TAPSE (tricuspid annular plane systolic excurs ion)is abnormal. There is moderate mitral regurgitation. No changes from pre-bypass exam. The mean gradient across the aortic valv e is 15 mmHg. The peak instantaneous gradient across the aortic valve is 32 m mHg. There is no evidence for aortic regurgitation. The date of insertion is 03/30/22. 19 mm Inspiris valve well seated in the aortic position with no paravalvu lar leak. There is moderate tricuspid regurgitatio n. Early hepatic vein flow reversal. No changes from pre-bypass exam. Patch material obscuring clear visualiza tion of root and ascending aorta. No changes from pre-bypass exam. No evidenc e of dissection. The pericardium appears normal. No pleur al effusion noted after chest closure. Reading Physician ? Breann Pierre MD ?? 03/30/2022, 5: 05 PM Ordering Physician: ABDULKADIR RAYA Referring Physician: ABDULKADIR RAYA Procedure Note Breann Pierre MD - 03/30/2022Forma tting of this note might be different from the original. Version: [address] [id number] Voice: Fax: Name: DEION March Study Date: 2021, 7: 13 AM Patient Location: [facility] : 1950 (MM/DD/YYYY) Age: 72 Years Gender: Female Ordering Physician: [id number]^ELVER^ABDULKADIR^^^^^^EPIC^^^^P ROVID Referring Physician: [id number]^ELVER^ABDULKADIR^^^^^^EPIC^^^^P ROVID Conclusions Preoperative JAVY: 1. There is severe aortic stenosis with a mean gradient across the aortic valve is 25 mmHg. The aortic valve area calculated using t he continuity equation is 0.81 cm2. There is mild to moderate aortic regurgi tation. The aortic jet is 26% of the LVOT diameter. The PHT is 407 msec. 2. Severe calcification of the mitral an nulus most prominent at the commissures with no evidence of caseation. There is moderate mitral regurgitation with an effective regurgitant orifice area of ca lculated at 34 cm2 and regurgitant volume of 50 mL by PISA calculation. There is mild (>1.5 cm2) mitral stenosis with an estimated mean gradient across the mitral valve of 4 mmHg and a mitral valve area calculated by planimetry is 1.6 cm2. 3. The left ventricular ejection fractio n is 55% by 3D volumetric assessment and 54% by Muniz's biplane. There are no r egional wall motion abnormalities. 4. There is severe calcification of aort ic arch and moderate calcification of the descending aorta. The proximal ascending has intimal thickening. There are no visible mobile plaques. 5. A Chiari network is present (normal e mbryologic variant). There is no evidence of a mass or thrombus. There is no paten t foramen ovale. 6. There are no other hemodynamically si gnificant valvular abnormalities. Post-operative JAVY s/p bioprosthetic Ins piris 19 mm valve in the aortic position, 2 vessel CABG and ascending aorta patch and root revision. 1. A 19 mm Inspiris valve is well seated in the aortic position with no paravalvular leak. The mean gradient across the aortic valv e is 15 mmHg. The peak instantaneous gradient across the aortic valve is 32 m mHg. 2. There is moderate mitral regurgitatio n. 3. The right ventricular systolic functi on is moderately decreased. RV function by TAPSE (tricuspid annular plane systolic excursion) is abnormal. 4. The left ventricular ejection fractio n is 55 % by Muniz's biplane. There are no segmental wall motion abnormalities. 5. There is moderate tricuspid regurgita tion Early hepatic vein flow reversal. 6. No evidence of dissection after remov al of the aortic cannula. 7. The JAVY probe was removed at the end of the case without incident. Pre Procedure Findings The left ventricular ejection fraction i s 55% by 3D volumetric assessment. The left ventricular ejection fraction is 54 % by Muniz's biplane. There are no segmental wall motion abnormalities. Right ventricular systolic function is n ormal. RV function by TAPSE (tricuspid annular plane systolic excursion) is nor mal. There is no evidence of a mass or thromb us. There is no evidence for a patent foramen ovale. A Chiari network is prese nt (normal embryologic variant). No evidence of a mass or thrombus. The aortic valve is tricuspid. The aorti c valve is severely calcified. There is mild to moderate aortic regurgitation. T he aortic jet is 26% of the LVOT diameter. The PHT is 407 msec. There is severe aor tic stenosis. The mean gradient across the aortic valve is 25 mmHg. The peak instan taneous gradient across the aortic valve is 42 mmHg. The aortic valve area calcul ated using the continuity equation is 0.81 cm2. Severe thickening of the mitral leaflets . Severe calcification of the mitral annulus. There is moderate mitral regurg itation. The effective regurgitant orifice area is calculated at 34 cm2. The regurg itant volume is calculated at 50 ml. There is mild (>1.5 cm2) mitral stenosis. The estimated mean gradient across the mitral valve is 4 mmHg. The mitral valve area c alculated by planimetry is 1.6 cm2. There is mild tricuspid regurgitation. There is trace pulmonic valve regurgitat ion. Severe calcification of aortic arch and moderate calcification of the descending aorta. The proximal ascending has intima l thickening. There are no visible mobile plaques. The pericardium appears normal. Post Procedure Findings Patient is s/p 2-vessel CABG. Patient is s/p bioprosthetic aortic valve replacement. Ascending aorta and root re pair. Left ventricle is of normal size. The le ft ventricular ejection fraction is 55 % by Muniz's biplane. There are no segme ntal wall motion abnormalities,. Right ventricular systolic function is m oderately decreased. RV function by TAPSE (tricuspid annular plane systolic excurs ion)is abnormal. There is moderate mitral regurgitation. No changes from pre-bypass exam. The mean gradient across the aortic valv e is 15 mmHg. The peak instantaneous gradient across the aortic valve is 32 m mHg. There is no evidence for aortic regurgitation. The date of insertion is 03/30/22. 19 mm Inspiris valve well seated in the aortic position with no paravalvu lar leak. There is moderate tricuspid regurgitatio n. Early hepatic vein flow reversal. No changes from pre-bypass exam. Patch material obscuring clear visualiza tion of root and ascending aorta. No changes from pre-bypass exam. No evidenc e of dissection. The pericardium appears normal. No pleur al effusion noted after chest closure. Reading Physician Breann Pierre MD 03/30/2022, 5: 05 PM Ordering Physician: ABDULKADIR RAYA Referring Physician: ABDULKADIR RAYA Abdulkadir Raya MD ECHO ORDERABLES Prepare RBC (03/30/2022 6:35 AM EDT) P athologist Signature Dispensed? Yes [facility] Specimen Anatomical Collection Method Collection Time Receive d Time (Source) Location / / Volume Laterality Blood 03/30/2022 6:35 AM 6:32 EDT AM EDT Abdulkadir Raya MD BLOOD BANK ORDERABLES Performing Organization Address City/State/ZIP [place] [address] [facility] [address] POCT Glucose (03/30/2022 6:28 AM EDT) P athologist Signature POC Glucose 127 65 - 199 [facility] Comment: Supplemental ranges: <140 mg/dL before meals <180 mg/dL all other times of the day Specimen Anatomical Collection Method Collection Time Receive d Time (Source) Location / / Volume Laterality Blood 03/30/2022 6:28 AM 6:28 EDT AM EDT Abdulkadir Raya MD POINT OF CARE TEST ORDERABLE S Performing Organization Address City/State/ZIP [place] [address] [facility] [address] SCAN DOC: IMPLANTABLE DEVICES (03/30/2022 12:00 AM EDT) Narrative This result has an attachment that is no t available. Unknown MEDIA MGR SCAN EXT ORDR/RSLT SCAN DOC: LAB (03/30/2022 12:00 AM EDT) Narrative This result has an attachment that is no t available. Unknown MEDIA MGR SCAN EXT ORDR/RSLT SCAN DOC: LAB (03/30/2022 12:00 AM EDT) Narrative This result has an attachment that is no t available. Unknown MEDIA MGR SCAN EXT ORDR/RSLT documented in this encounter Visit Diagnoses Diagnosis S/P AVR (aortic valve replacement) and a ortoplasty and CABG - Primary Heart valve replaced by other means Aortic valve stenosis, etiology of cardi ac valve disease unspecified S/P AVR (aortic valve replacement) and a ortoplasty and CABG Heart valve replaced by other means S/P CABG x 2 Postsurgical aortocoronary bypass status Unsteady gait when walking CAD (coronary artery disease) Coronary atherosclerosis of unspecified type of vessel, [place] or graft Hypertension Unspecified essential hypertension Diabetes mellitus Type II or unspecified type diabetes kylah litus without mention of complication, not stated as uncontrolled Class 3 severe obesity in adult Pulmonary hypertension Other chronic pulmonary heart diseases Mediastinal lymphadenopathy, abnormal fi ndings right and left liver lobes, numerous very small pulmonary nodules Enlargement of lymph nodes Colon cancer metastasized to liver Malignant neoplasm of colon, unspecified site documented in this encounter Admitting Diagnoses Diagnosis CAD (coronary artery disease) Coronary atherosclerosis of unspecified type of vessel, [place] or graft documented in this encounter Administered Medications Inactive Administered Medications - up to 3 most recent administrations Medication Order MAR Action Action Date Dose Rate Site acetaminophen (Ofirmev) (1000 Given 03/31/2022 11:21 AM 1,000 mg 400 mL/hr mg/100 mL) infusion 1,000 mg EDT 1,000 mg, Intravenous, at 400 mL/hr, EVERY 6 HOURS SCHEDULED, 4 doses, First dose on Wed03/30/22 at 1800, Last dose on Wed03/31/22 at 1200, Maximum dose of acetaminophen is 4000 mg from all sources in 24 hours. When ordered for pain, acetaminophen should be given even when other ordered pain medications are indicated., Routine, Is ketorolac (Toradol) IV contraindicated? Yes, Can this patient tolerate oral medications or suppositories? No Given 03/31/2022 5:02 AM EDT 1,000 mg 400 mL/hr Given 03/30/2022 11:30 PM EDT 1,000 mg 400 mL/hr acetaminophen (Tylenol) tablet 1,000 mg Given 03/30/2022 7:15 AM EDT 1,000 mg 1,000 mg, Oral, ONCE, 1 dose, On Wed03/30/22 at 0730, Administer with SIP of H2O only., Day of Surgery (Day of Procedure), Routine acetaminophen (Tylenol) tablet 1,000 mg Given 04/08/2022 11:58 AM EDT 1,000 mg 1,000 mg, Oral, EVERY 6 HOURS SCHEDULED, First dose on Wed03/31/22 at 1800, Until Discontinued, For pain when taking by mouth. Maximum dose of acetaminophen is 4000 mg from all sources in 24 hours. When ordered for pain, acetaminophen should be given even when other ordered pain medications are indicated., Routine Given 04/08/2022 6:06 AM EDT 1,000 mg Given 04/08/2022 12:06 AM EDT 1,000 mg albuteroL 90 mcg/actuation inhaler 6 puf f Given 03/31/2022 3:42 AM EDT 6 puffs 6 puff, Inhalation, EVERY 4 HOURS, First dose on Wed03/30/22 at 1730, Until Discontinued, While INtubated. , Routine, Is there a contraindication to the patient receiving this medication as a nebulizer? Yes Given 03/30/2022 11:19 PM EDT 6 puffs Given 03/30/2022 5:38 PM EDT 6 puffs AMIOdarone (Nexterone) Rate/Dose Verify 04/06/2022 8:00 AM 0.5 mg/m in 16.7 mL/hr (1.8 mg/mL) in dextrose EDT (iso-osmotic) infusion 0.5-1 mg/min (16.6667-33.3333 mL/hr, rounded to 16.7-33.3 mL/hr), Intravenous, CONTINUOUS, Starting on Wed04/05/22 at 0215, Until Wed04/06/22 at 0900, 1 mg/min for 6 hrs, then 0.5 mg/min for 18 hrs. After first 24 hours, order maintenance dose 0.5 mg/min. Use in-line filter. Warning Vesicant/Irritant Medication Rate/Dose Verify 04/06/2022 6:00 AM EDT 0.5 mg/min 16.7 mL/hr Rate/Dose Verify 04/06/2022 4:00 AM EDT 0.5 mg/min 16.7 mL/hr AMIOdarone (Nexterone) 1.8 mg/mL infusio n 1 dose, Starting on Wed04/05/22 at 0116, Until Wed04/05/22 at 0123, Tiffany Khan: cabinet override AMIOdarone (NEXTERONE) bolus Bolus from Bag 04/05/2022 2:15 AM EDT 150 mg 600 mL/hr infusion 150 mg 150 mg, Intravenous, at 600 mL/hr, ONCE, 1 dose, On 04/05/22 at 0215, Warning Vesicant/Irritant Medication , Routine AMIOdarone (Paceron) tablet 400 mg Given 04/08/2022 8:50 AM EDT 400 mg 400 mg, Oral, DAILY, First dose on Wed04/06/22 at 1000, Until Discontinued, Routine Given 04/07/2022 8:45 AM EDT 400 mg Given 04/06/2022 9:42 AM EDT 400 mg aspirin chewable tablet 81 mg Given 04/02/2022 8:07 AM EDT 81 mg 81 mg, Oral, DAILY, First dose on Wed03/30/22 at 1730, Until Discontinued, Routine Given 04/01/2022 8:36 AM EDT 81 mg Given 03/31/2022 8:29 AM EDT 81 mg aspirin chewable tablet 81 mg Given 04/08/2022 8:50 AM EDT 81 mg 81 mg, Oral, DAILY, First dose on Wed04/08/22 at 0900, Until Discontinued, Routine aspirin EC tablet 325 mg Given 04/07/2022 8:45 AM EDT 325 mg 325 mg, Oral, DAILY, First dose on Wed04/03/22 at 0900, Until Discontinued, Routine Given 04/06/2022 8:55 AM EDT 325 mg Given 04/05/2022 8:33 AM EDT 325 mg aspirin suppository 300 mg Given 03/30/2022 9:14 PM EDT 300 mg 300 mg, Rectal, DAILY, First dose on Wed03/30/22 at 1730, Until Discontinued, Start on Post-Op Day 0, please give within 6 hours upon arrival to Unit. Give NH if unable to take PO, Routine benzonatate (Tessalon) capsule 100 mg Given 04/08/2022 8:50 AM EDT 100 mg 100 mg, Oral, 3 TIMES DAILY, First dose on Wed04/05/22 at 0930, Until Discontinued, DO NOT CRUSH OR OPEN, Routine Given 04/07/2022 8:40 PM EDT 100 mg Given 04/07/2022 3:27 PM EDT 100 mg chlorhexidine (Peridex) 0.12 % oral solution Given 8:48 PM EDT 15 mLs 15 mL 15 mL, Oral, EVERY 12 HOURS SCHEDULED (2 times per day), First dose on Wed03/30/22 at 2100, Until Discontinued, [place] teeth, Routine citalopram (CeleXA) tablet 20 mg Given 04/08/2022 8:50 AM EDT 20 mg 20 mg, Oral, DAILY, First dose on Wed03/31/22 at 0900, Until Discontinued, Routine Given 04/07/2022 8:44 AM EDT 20 mg Given 04/06/2022 8:56 AM EDT 20 mg clopidogreL (Plavix) tablet 75 mg Given 04/08/2022 8:50 AM EDT 75 mg 75 mg, Oral, DAILY, First dose on Wed04/08/22 at 0900, Until Discontinued, Routine dexmedeTOMIDine Rate/Dose Change 03/31/2022 6:37 AM 0.2 mcg/kg/hr 5 m L/hr (Precedex) (4 mcg/mL) in EDT sodium chloride 0.9% 100 mL infusion 0-1.7 mcg/kg/hr ? 100.4 kg (0-42.67 mL/hr, rounded to 0-42.7 mL/hr), Intravenous, CONTINUOUS, Starting on Wed03/30/22 at 1730, Until Wed04/01/22 at 1517, Titrate to sedation level of RASS Goal (-)1 to 0 . Start at 0.4 mcg/kg/hr, adjust by 0.4 mcg/kg/hr every 15 minutes. Once stable, reassess patient every 30 minutes. Rate not to exceed 1.7 mcg/kg/hr. Change rate only after assessing and documenting RASS. Reassess sedation scores within 30 minutes after every rate change. If under sedated, increase rate by 0.4 mcg/kg/hr. If over sedated, hold sedative until target RASS (-)1 to 0 achieved and then restart at 50% of previous rate. Call supervisor wash house if goal not achieved at maximum rate. If SAT is ordered and if patient meets criteria for Spontaneous Awakening Trial, titrate per protocol. Rate/Dose Change 03/31/2022 6:11 AM EDT 0.6 mcg/kg/hr 15.1 mL/hr New Bag 03/31/2022 2:19 AM EDT 0.8 mcg/kg/hr 20.1 mL/hr dextromethorphan (Robitussin) capsule 15 mg 15 mg, Oral, EVERY 4 HOURS PRN, Starting on Wed04/05/22 at 0833, Until Wed04/08/22 at 1504, Cough, Routine dextrose 10% 250 mL IV bolus New Bag 03/31/2022 7:03 PM EDT 1000 mL/hr at 1,000 mL/hr, Intravenous, ONCE, 1 dose, On Tu03/31/22 at 1945, Give 250 mL of dextrose 10% intravenously immediately followed by regular insulin 10 units intravenously. dextrose 10% 250 mL IV bolus New Bag 04/02/2022 5:40 AM EDT 1000 mL/hr at 1,000 mL/hr, Intravenous, ONCE, 1 dose, On Wed04/02/22 at 0630, Give 250 mL of dextrose 10% intravenously immediately followed by regular insulin 10 units intravenously. dextrose 10% 250 mL IV bolus New Bag 04/02/2022 4:09 PM EDT 1000 mL/hr at 1,000 mL/hr, Intravenous, ONCE, 1 dose, On Wed04/02/22 at 1645, Give 250 mL of dextrose 10% intravenously immediately followed by regular insulin 10 units intravenously. dextrose 10% infusion 250 mL, at 1,000 mL/hr, Intravenous, WINTER RY 30 MIN PRN, Starting on Wed04/07/22 at 0834, Until Wed04/08/22 at 1504, For B G 50-70 mg/dL: Oral treatment preferred: If able to drink, give 120 mL Juice or Regu lar (not diet) soda OR If NPO, give 15 gram glucose 40% oral gel massaged into buccal mucosa OR if unconscious or uncooperative, give 25 gram (250 mL) Dex trose 10% IV over 15 minutes per protocol OR, if no IV access, 1 mg Glucagon IM. * * For BG less than 50 mg/dL: Oral treatment preferred: If able to drink, give 240 mL Juice or Regu lar (not diet) soda OR If NPO, give 30 gram glucose 40% oral gel m assaged in buccal mucosa OR if unconscious or uncooperative, give 25 gram (250 mL) Dextrose 10% I V over 15 minutes per protocol OR, if no IV access, 1 mg Glucagon IM. Rech octavio BG in 30 minutes. May repeat juice/soda, gel, dextrose or gluc agon once per episode. For persistent hypoglycemia, consider longer-acting treatment for the duration of the active insulin. DOBUTamine (Dobutrex) Rate/Dose Verify 04/05/2022 8:00 AM 2 mcg/kg/ min 6.5 mL/hr (2,000 mcg/mL) in EDT dextrose 5% 250 mL infusion 2.5 mcg/kg/min ? 108.9 kg (8.1675 mL/hr, rounded to 8.2 mL/hr), Intravenous, CONTINUOUS, Starting on 04/02/22 at 1515, Until 04/05/22 at 0833, Concentration 2000 mcg/mL. Warning Vesicant/Irritant Medication Rate/Dose Verify 04/05/2022 6:00 AM EDT 2 mcg/kg/min 6.5 mL/hr Rate/Dose Verify 04/05/2022 4:05 AM EDT 2 mcg/kg/min 6.5 mL/hr EPINEPHrine (Adrenalin) (8 Rate/Dose Verify 03/31/2022 6:00 PM 1 mc g/min 7.5 mL/hr mcg/mL) in dextrose 5% 250 EDT mL infusion 0-10 mcg/min (0-75 mL/hr), Intravenous, CONTINUOUS, Starting on Wed03/30/22 at 1730, Until Wed04/01/22 at 1517, Titrate to keep systolic blood pressure greater than 90 mmHg. Start at 1 mcg/min, adjust by 1 mcg/min every 3 minutes. Dose not to exceed 10 mcg/min. Use if PHENYLephrine or vasopressin or NORepinephrine is ineffective. Call pager # [phone] if initiated. Concentration: 8 mcg/mL. Warning Vesicant/Irritant Medication New Bag 03/31/2022 5:16 PM EDT 1 mcg/min 7.5 mL/hr Rate/Dose Verify 03/31/2022 4:00 PM EDT 1 mcg/min 7.5 mL/hr fentaNYL (50 mcg/mL) bolus from Bolus from Infusion 03/30/2022 5 :11 PM EDT 25 mcg infusion 25 mcg 25 mcg, Intravenous, EVERY 10 MIN PRN, Starting on Wed03/30/22 at 1637, Until Wed04/01/22 at 1517, Pain, Maximum dose 300 mcg over one hour, Routine fentaNYL (PF) (50 Rate/Dose Change 03/31/2022 8:28 AM EDT 25 mcg/hr 0.5 mL/hr mcg/mL) infusion syringe 50 mL 0-100 mcg/hr (0-2 mL/hr), Intravenous, CONTINUOUS, Starting on Wed03/30/22 at 1730, Until Wed04/01/22 at 1517, Titrate to patient comfort, pain scale 1-3. Start at 25 mcg/hr, adjust by 25 mcg/hr every 15 minutes. Dose not to exceed 100 mcg/hour., Routine Rate/Dose Verify 03/31/2022 8:00 AM EDT 50 mcg/hr 1 mL/hr Rate/Dose Change 03/30/2022 7:31 PM EDT 50 mcg/hr 1 mL/hr furosemide (Lasix) (10 mg/mL) injection 20 mg Given 03/31/2022 11:21 AM EDT 20 mg 20 mg, Intravenous, ONCE, 1 dose, On Wed03/31/22 at 1130 furosemide (Lasix) (10 mg/mL) injection 20 mg Given 04/01/2022 5:14 PM EDT 20 mg 20 mg, Intravenous, ONCE, 1 dose, On Wed04/01/22 at 1715 furosemide (Lasix) (10 mg/mL) injection 40 mg Given 04/01/2022 8:36 AM EDT 40 mg 40 mg, Intravenous, ONCE, 1 dose, On Wed04/01/22 at 0900 furosemide (Lasix) (10 mg/mL) injection 40 mg Given 04/02/2022 3:15 PM EDT 40 mg 40 mg, Intravenous, ONCE, 1 dose, On Wed04/02/22 at 1515 furosemide (Lasix) (10 mg/mL) injection 40 mg Given 04/03/2022 9:16 AM EDT 40 mg 40 mg, Intravenous, 3 TIMES DAILY, First dose on Wed04/03/22 at 0930, Until Discontinued furosemide (Lasix) (10 mg/mL) injection 40 mg Given 04/08/2022 8:50 AM EDT 40 mg 40 mg, Intravenous, 2 TIMES DAILY, First dose (after last modification) on Wed04/03/22 at 1700, Until Discontinued Given 04/07/2022 5:00 PM EDT 40 mg Given 04/07/2022 8:47 AM EDT 40 mg glucagon (Glucagen) (1 mg/mL) injection solution 1 mg 1 mg, Intramuscular, EVERY 30 MIN PRN, S tarting on Wed04/07/22 at 0834, Until Wed04/08/22 at 1504, Low blood sugar, For BG 50-70 mg/dL: Oral treatment preferred: If able to drink, give 120 mL Juice or R egular (not diet) soda OR If NPO, give 15 gram glucose 40% oral gel massaged into buccal mucosa OR if unconscious or uncooperative, give 25 gram (250 mL) Dex trose 10% IV over 15 minutes per protocol OR, if no IV access, 1 mg Glucagon IM. * * For BG less than 50 mg/dL: Oral treatment preferred: If able to drink, give 240 mL Juice or Regu lar (not diet) soda OR If NPO, give 30 gram glucose 40% oral gel m assaged in buccal mucosa OR if unconscious or uncooperative, give 25 gram (250 mL) Dextrose 10% I V over 15 minutes per protocol OR, if no IV access, 1 mg Glucagon IM. Rech octavio BG in 30 minutes. May repeat juice/soda, gel, dextrose or gluc agon once per episode. For persistent hypoglycemia, consider longer-acting treatment for the duration of the active insulin., Routine glucose (Glutose) 40% oral geL 15-30 g of glucose, Buccal, EVERY 30 MIN PRN, Starting on Wed04/07/22 at 0834, Until Wed04/08/22 at 1504, Low blood sugar, For BG 50-70 m g/dL: Oral treatment preferred: If able to drink, give 120 mL Juice or Regu lar (not diet) soda OR If NPO, give 15 gram glucose 40% oral gel massaged into b uccal mucosa OR if unconscious or uncooperative, give 25 gr am (250 mL) Dextrose 10% IV over 15 minutes per protocol OR, if no IV access, 1 mg G lucagon IM. For BG less than 50 mg/dL: Oral treatment preferred: If able to dri nk, give 240 mL Juice or Regular (not diet) soda OR If NPO, give 30 gram glucose 40% oral gel massaged in buccal mucosa OR if unconscious or uncooperative, give 25 gr am (250 mL) Dextrose 10% IV over 15 minutes per protocol OR, if no IV access, 1 mg G lucagon IM. Recheck BG in 30 minutes. May repeat juice/soda, gel, dextrose or gluc agon once per episode. For persistent hypoglycemia, consider longer-acting treatment for the duration of the active insulin. 1 tube of Glutose-15 contains 1 5 grams of glucose (net weight of tube = 37.5 grams.), Routine guaiFENesin ER (Mucinex) tablet 600 mg Given 04/08/2022 8:50 AM EDT 600 mg 600 mg, Oral, EVERY 12 HOURS, First dose on Wed04/05/22 at 0900, Until Discontinued, DO NOT CRUSH OR OPEN, Routine Given 04/07/2022 8:40 PM EDT 600 mg Given 04/07/2022 8:46 AM EDT 600 mg heparin (porcine) (5,000 units/1 mL) Given 04/07/2022 8:40 PM ED T 5,000 Units subcutaneous injection 5,000 Units 5,000 Units, Subcutaneous, EVERY 12 HOURS SCHEDULED (2 times per day), First dose on Wed04/02/22 at 2100, Until Discontinued, Routine Given 04/07/2022 8:46 AM EDT 5,000 Units Given 04/06/2022 9:36 PM EDT 5,000 Units hydrALAZINE (Apresoline) (20 mg/mL) injection Given 2:57 PM EDT 10 mg 10 mg 10 mg, Intravenous, EVERY 4 HOURS PRN, Starting on Wed04/01/22 at 1952, Until Wed04/05/22 at 1018, High Blood Pressure, give for SBP >140 insulin lispro (HumaLOG;Admelog) (100 Given 04/06/2022 11:41 AM EDT 1 Units unit/mL) subcutaneous injection vial 1-4 Units 1-4 Units, Subcutaneous, 3 TIMES DAILY BEFORE MEALS, First dose on Wed04/01/22 at 1630, Until Discontinued, CORRECTION BOLUS [1-4 Units] Sensitive Sliding Scale (BG in mg/dL): Correction factor 40 (1 unit of insulin is expected to drop the glucose 40 mg/dL) BG 160 - 200 Give 1 unit BG 201 - 240 Give 2 units BG 241 - 280 Give 3 units BG greater than 280, give 4 units and recheck BG in 2 hours. - If recheck BG is LESS than 280, give no insulin and resume schedule - If recheck BG is GREATER than 280, give 4 units and repeat BG in 2 hours (no more than 3 times) & call for new insulin orders. DO NOT hold if NPO, unless specifically directed to do so by written order. Per Blood Glucose Monitoring Policy, re-check a BG of > 240 mg/dL in 2 hours., Routine Given 04/05/2022 11:20 AM EDT 1 Units Given 04/05/2022 8:33 AM EDT 1 Units insulin lispro (HumaLOG;Admelog) (100 Given 04/08/2022 7:42 AM E DT 1 Units unit/mL) subcutaneous injection vial 1-4 Units 1-4 Units, Subcutaneous, 3 TIMES DAILY BEFORE MEALS, First dose on Wed04/07/22 at 1130, Until Discontinued, CORRECTION BOLUS [1-4 Units] Sensitive Sliding Scale (BG in mg/dL): Correction factor 40 (1 unit of insulin is expected to drop the glucose 40 mg/dL) BG 160 - 200 Give 1 unit BG 201 - 240 Give 2 units BG 241 - 280 Give 3 units BG greater than 280, give 4 units and recheck BG in 2 hours. - If recheck BG is LESS than 280, give no insulin and resume schedule - If recheck BG is GREATER than 280, give 4 units and repeat BG in 2 hours (no more than 3 times) & call for new insulin orders. DO NOT hold if NPO, unless specifically directed to do so by written order. Per Blood Glucose Monitoring Policy, re-check a BG of > 240 mg/dL in 2 hours., Routine Given 04/07/2022 4:32 PM EDT 1 Units insulin regular (HumuLIN R,NovoLIN R) (100 Given 03/31 7:37 PM EDT 10 Units unit/mL) injection vial 10 Units 10 Units, Intravenous, ONCE, 1 dose, On Wed03/31/22 at 1945, Give 250 mL of dextrose 10% Intravenously immediately followed by regular insulin 10 units Intravenously. Monitor BG one hour after insulin administration and then every two hours X 2 and PRN., Routine insulin regular (HumuLIN R,NovoLIN R) (100 Given 04/02 5:40 AM EDT 10 Units unit/mL) injection vial 10 Units 10 Units, Intravenous, ONCE, 1 dose, On Wed04/02/22 at 0630, Give 250 mL of dextrose 10% Intravenously immediately followed by regular insulin 10 units Intravenously. Monitor BG one hour after insulin administration and then every two hours X 2 and PRN., Routine insulin regular (HumuLIN R,NovoLIN R) (100 Given 04/02 4:47 PM EDT 10 Units unit/mL) injection vial 10 Units 10 Units, Intravenous, ONCE, 1 dose, On Birgit 04/02/22 at 1645, Give 250 mL of dextrose 10% Intravenously immediately followed by regular insulin 10 units Intravenously. Monitor BG one hour after insulin administration and then every two hours X 2 and PRN., Routine insulin regular Rate/Dose Change 03/31/2022 11:16 0.5 Units/hr 0.5 mL /hr (Myxredlin) (1 unit/mL) AM EDT in sodium chloride 0.9% 100 mL infusion 0.5-16 Units/hr (0.5-16 mL/hr), Intravenous, CONTINUOUS, Starting on 03/30/22 at 1730, Until 04/01/22 at 1517, Type 2 diabetes. Current blood glucose 140 - 179 Titration- aim for target range of 140 - 180 mg/dL. Check BG every hour unless otherwise indicated. [[ No initial bolus. Begin continuous infusion at 2 units/hour. ]] If BG at the time the infusion is started outside of the CURRENT BLOOD GLUCOSE range above, contact MD for new starting rate/bolus order. When infusion is paused, turn it back on as soon as possible per protocol. If BG at the time the infusion is started is outside of the CURRENT BLOOD GLUCOSE range above, contact provider for new starting rate/bolus order. Current BG less than 80 - Stop insulin. If BG less than 70, treat per hypoglycemia protocol. Re-check BG in 30 minutes and as soon as BG is greater than 80, restart with rate 50% of previous rate. If infusion stopped after previous rate had been 0.5 unit/hour, recheck every hour and when BG greater than 100 and higher than last test restart at 0.5 unit/hour. IF INFUSION IS PAUSED, TURN IT BACK ON SOON POSSIBLE, PER PROTOCOL. Current BG 80 - 139 - If BG dropped 10 mg/dL or more since last test, decrease rate by 50% and re-check in 30 minutes. Otherwise, decrease rate by 0.5 units/hour. Current BG 140 - 180 - If BG dropped 50 mg/dL or more since last test, decrease rate by 1 unit/hour. Otherwise, maintain same rate. Current BG 181 - 220 - If BG is lower than last test, maintain same rate. Otherwise, increase rate by 0.5 units/hour. Current BG 221 - 250 - If BG dropped 30 mg/dL or more since last test, maintain same rate. Otherwise, increase rate by 1 unit/hour. Current BG greater than 250 - Increase rate by 1 unit/hour AND bolus with Regular insulin IV as per IV Bolus Scale. Re-check BG in 30 minutes. THE FIRST DOSE OF SC INSULIN OUGHT TO BE ADMINISTERED BEFORE DISCONTINUING THE INFUSION. AN OVERLAP OF 2-3 HOURS IS RECOMMENDED. Continue to monitor the BG hourly., Routine Rate/Dose Verify 03/31/2022 11:00 AM EDT 1 Units/hr 1 mL/hr Rate/Dose Verify 03/31/2022 10:00 AM EDT 1 Units/hr 1 mL/hr ipratropium-albuteroL (Duoneb) 0.5 mg-3 mg(2.5 mg base)/3 mL nebulizer solution 3 mL 3 mL, Nebulization, EVERY 4 HOURS PRN, S tarting on Wed04/01/22 at 1513, Until Wed04/08/22 at 1504, Wheezing, Routine lidocaine (Lidoderm) 5% Patch Applied 04/04/2022 5:52 PM 2 patches 07- Back Lower patch 2 patch EDT (Left) 2 patch, Transdermal, EVERY 24 HOURS, First dose on Wed04/01/22 at 1745, Until Discontinued, Apply patch(es) for 12 hours, and then remove for 12 hours., Routine Patch Applied 04/03/2022 4:53 PM EDT 2 patches 11- Chest (Left) Patch Applied 04/02/2022 5:10 PM EDT 2 patches 12- Chest (Right) lidocaine (Lidoderm) topical patch REMOV AL Transdermal, EVERY 24 HOURS, First dose on Wed04/02/22 at 0500, Until Discontinued, Remove lidocaine 5% patch magnesium hydroxide (Milk of Magnesia) (240 Given 04/03/2022 8:07 AM EDT 10 mLs mg/mL) oral liquid 10 mL 10 mL, Oral, DAILY, First dose on Wed04/01/22 at 0900, Until Discontinued, Post-op day 2. Do not use with renal insufficiency., Routine Given 04/02/2022 8:07 AM EDT 10 mLs Given 04/01/2022 8:36 AM EDT 10 mLs magnesium sulfate 2 g in sterile water New Bag 04/05/2022 1:50 AM EDT 2 g 25 mL/hr 50 mL infusion 2 g, Intravenous, ONCE, 1 dose, On Wed04/05/22 at 0215, Administer over 120 Minutes metoprolol tartrate (Lopressor) tablet 12.5 Given 03/2022 8:51 AM EDT 12.5 mg mg 12.5 mg, Oral, EVERY 12 HOURS SCHEDULED (2 times per day), First dose on Wed04/07/22 at 0900, Until Discontinued, Hold for SBP<90 or HR<60, Routine Given 04/07/2022 8:40 PM EDT 12.5 mg Given 04/07/2022 8:44 AM EDT 12.5 mg metoproloL tartrate (Lopressor) tablet 2 5 mg Given 04/02/2022 8:07 AM EDT 25 mg 25 mg, Oral, EVERY 12 HOURS SCHEDULED (2 times per day), First dose (after last modification) on Wed04/01/22 at 2045, Until Discontinued, Routine Given 04/01/2022 8:04 PM EDT 25 mg miconazole (Micotin) 2 % powder Given 04/08/2022 8:55 AM EDT Topical (Top), 2 TIMES DAILY, First dose on Wed03/30/22 at 2100, Until Discontinued Given 04/07/2022 8:40 PM EDT Given 04/07/2022 8:49 AM EDT niCARdipine (Cardene) (0.2 Rate/Dose Verify 03/31/2022 9:00 AM EDT 5 mg/hr 25 mL/hr mg/mL) in sodium chloride 200 mL infusion 0-15 mg/hr (0-75 mL/hr), Intravenous, CONTINUOUS, Starting on Wed03/30/22 at 2030, Until Wed04/01/22 at 1517, Titrate to MAP of 55. Start at 5 mg/hour, titrate to maintain target MAP, adjust infusion rate by 2.5 mg/hour every 5 minutes to a maximum of 15 mg/hour. Rotate IV site every 12 hours, Routine Rate/Dose Change 03/31/2022 8:25 AM EDT 5 mg/hr 25 mL/hr Rate/Dose Change 03/31/2022 8:12 AM EDT 2.5 mg/hr 12.5 mL/hr niCARdipine (Cardene) Rate/Dose Verify 04/04/2022 4:00 PM 2.5 mg/hr 12.5 mL/hr (0.2 mg/mL) in sodium EDT chloride 200 mL infusion 0-15 mg/hr (0-75 mL/hr), Intravenous, CONTINUOUS PRN, Starting on Brigit 04/02/22 at 1654, Until 04/05/22 at 1017, hypertension, Titrate to MAP greater than 65 and less than 80 mmHg. Start at 5 mg/hour, titrate to maintain target SBP, adjust infusion rate by 2.5 mg/hour every 5 minutes to a maximum of 15 mg/hour., Routine Rate/Dose Change 04/04/2022 2:15 PM EDT 2.5 mg/hr 12.5 mL/hr Rate/Dose Verify 04/04/2022 2:00 PM EDT 5 mg/hr 25 mL/hr NORepinephrine (Levophed) Rate/Dose Change 03/30/2022 4:35 PM 2 mcg /min 7.5 mL/hr (16 mcg/mL) in dextrose EDT 5% 250 mL infusion 0-30 mcg/min (0-112.5 mL/hr), Intravenous, CONTINUOUS, Starting on Wed03/30/22 at 1730, Until Wed04/01/22 at 1950, Titrate to keep systolic blood pressure greater than 90 mmHg. Start at 2 mcg/minute and adjust by 2 mcg/min every 3 minutes. Dose not to exceed 30 mcg/minute. Begin if PHENYLephrine and/or vasopressin ineffective. Call pager # [phone] if initiated., Routine New Bag 03/30/2022 4:30 PM EDT 4 mcg/min 15 mL/hr ondansetron (pf) (Zofran) (2 mg/mL) injection 4 Given 04/02/2022 8:48 AM EDT 4 mg mg 4 mg, Intravenous, EVERY 8 HOURS PRN, Starting on Wed03/30/22 at 1637, Until Wed04/08/22 at 1504, Nausea oxyCODONE (Roxicodone) tablet 5-10 mg Given 04/04/2022 6:13 AM EDT 10 mg 5-10 mg, Oral, EVERY 4 HOURS PRN, Starting on Wed03/30/22 at 1637, Until Wed04/08/22 at 1504, Pain, - When tolerating oral medications. - Initial dose 5 mg. - If pain control not adequate in 60 minutes, give additional 5 mg., Routine Given 04/03/2022 11:59 AM EDT 5 mg Given 04/01/2022 8:00 PM EDT 5 mg pantoprazole (Protonix) injection 40 mg Given 03/31/2022 8:29 AM EDT 40 mg 40 mg, Intravenous, DAILY, First dose on Wed03/30/22 at 1730, Until Discontinued, Reconstitute with 10 mL of normal saline to a concentration of 4 mg/mL and infuse slowly over 2 minutes. , Routine Given 03/30/2022 5:42 PM EDT 40 mg pantoprazole EC (Protonix) tablet 40 mg Given 04/08/2022 8:51 AM EDT 40 mg 40 mg, Oral, DAILY, First dose on Wed03/30/22 at 1730, Until Discontinued, DO NOT CRUSH OR OPEN If unable to take PO, may give IV, Routine Given 04/07/2022 8:46 AM EDT 40 mg Given 04/06/2022 8:56 AM EDT 40 mg perflutren lipid microspheres (Definity) Given 04/02/2022 3:45 P M EDT 1.5 mLs injection 1.5 mL 1.5 mL, Intravenous, ONCE PRN, 1 dose, Starting on Wed04/02/22 at 1611, Until Wed04/02/22 at 1545, per protocol, Routine potassium chloride 20 mEq in New Bag 04/06/2022 5:50 AM EDT 20 mEq 100 mL/hr sterile water 100 mL infusion 20 mEq, Intravenous, EVERY 1 HOUR PRN, Starting on Wed03/30/22 at 1637, Until Wed04/07/22 at 0834, Administer over 60 Minutes, hypokalemia, Administer 3 doses for a serum potassium (mMol/L) of 2.8 - 3.2 See instructions for Potassium Protocol in online policies. New Bag 04/06/2022 4:33 AM EDT 20 mEq 100 mL/hr potassium chloride ER (K-Dur/Klor-Con) tablet Given 7:38 AM EDT 20 mEq 20 mEq 20 mEq, Oral, ONCE, 1 dose, On Wed04/08/22 at 0730, Routine propofoL (Diprivan) (10 New Bag 03/31/2022 5:02 AM EDT 25 mcg/kg/m in 15.1 mL/hr mg/mL) infusion 0-50 mcg/kg/min ? 100.4 kg (0-30.12 mL/hr, rounded to 0-30.1 mL/hr), Intravenous, CONTINUOUS, Starting on Wed03/30/22 at 1730, Until Wed04/01/22 at 1517, Titrate to sedation level of RASS Goal (-) 1. Start at 10 mcg/kg/min, adjust rate by 5 mcg/kg/min every 3 minutes. Dose not to exceed 50 mcg/kg/minute. Discontinue upon extubation., Routine Rate/Dose Change 03/31/2022 4:56 AM EDT 25 mcg/kg/min 15.1 mL/hr New Bag 03/31/2022 1:57 AM EDT 50 mcg/kg/min 30.1 mL/hr senna-docusate (Pericolace) 8.6-50 mg per Given 2021 8:40 PM EDT 2 tablets tablet 2 tablet 2 tablet, Oral, DAILY, First dose on Wed03/31/22 at 2100, Until Discontinued, Post-op day 1, Routine Given 04/06/2022 9:36 PM EDT 2 tablets Given 04/05/2022 9:53 PM EDT 2 tablets simvastatin (Zocor) tablet 20 mg Given 04/07/2022 8:40 PM EDT 20 mg 20 mg, Oral, NIGHTLY, First dose on Wed03/30/22 at 2100, Until Discontinued, Routine Given 04/06/2022 9:36 PM EDT 20 mg Given 04/05/2022 9:53 PM EDT 20 mg sodium chloride 0.9 % (flush) (BD PosiFlush Given 04/08/2022 8:5 8 AM EDT 5 mLs Normal Saline 0.9) flush 5 mL 5 mL, Intravenous, EVERY 8 HOURS, First dose on Wed04/07/22 at 0930, Until Discontinued, Routine Given 04/07/2022 4:31 PM EDT 5 mLs Given 04/07/2022 8:49 AM EDT 5 mLs sodium chloride 0.9% Rate/Dose Verify 04/01/2022 8:00 AM 10 mL/hr 1 0 mL/hr infusion EDT 0-500 mL/hr, Intravenous, CONTINUOUS, Starting on Wed03/30/22 at 1730, Until Wed04/01/22 at 1517, Bolus 250 mL every 5 minutes as needed for volume replacement to maintain cardiac index greater than or equal to 2.0 L/min/M2. Maximum volume 2 L. Call supervisor wash house for additional fluid orders: pager #[phone]. Rate/Dose Verify 03/31/2022 6:00 PM EDT 10 mL/hr 10 mL/hr Rate/Dose Verify 03/31/2022 4:00 PM EDT 10 mL/hr 10 mL/hr sodium chloride 0.9% Rate/Dose Verify 04/01/2022 8:00 PM 30 mL/hr 3 0 mL/hr infusion EDT 10-30 mL/hr, Intravenous, DAILY PRN, Starting on Wed03/30/22 at 1637, Until Wed04/07/22 at 0834, Side port TKO rate, per [facility] nursing protocol. Rate/Dose Verify 04/01/2022 8:00 AM EDT 30 mL/hr 30 mL/hr Rate/Dose Verify 03/31/2022 6:00 PM EDT 30 mL/hr 30 mL/hr sodium chloride 0.9% Rate/Dose Verify 04/01/2022 8:00 PM 30 mL/hr 3 0 mL/hr infusion EDT 10-30 mL/hr, Intravenous, DAILY PRN, Starting on Wed03/30/22 at 1637, Until Wed04/07/22 at 0834, Side port TKO rate, per CC nrusing protocol. Rate/Dose Verify 04/01/2022 8:00 AM EDT 30 mL/hr 30 mL/hr Rate/Dose Verify 03/31/2022 6:00 PM EDT 30 mL/hr 30 mL/hr vasopressin (Vasostrict) Rate/Dose Change 03/30/2022 6:00 PM 0.02 U nits/min 6 mL/hr (0.2 units/mL) 100 mL EDT infusion 0-0.1 Units/min (0-30 mL/hr), Intravenous, CONTINUOUS, Starting on Wed03/30/22 at 1730, Until Wed04/01/22 at 1517, Titrate to keep systolic blood pressure greater than 90 mmHg. Start at 0.04 units/min and adjust rate by 0.005 units/min every 10 minutes. Dose not to exceed 0.1 units/minute. Begin if PHENYLephrine ineffective or continue if drip running on admission to unit. Rate/Dose Change 03/30/2022 5:35 PM EDT 0.04 Units/min 12 mL/hr New Bag 03/30/2022 5:33 PM EDT 0.04 Units/min 12 mL/hr documented in this encounter Active and Recently Administered Medications Times are shown in EDT. Scheduled Medication Order 04/06/2022 04/07/2022 04/08/2022 acetaminophen (Tylenol) tablet 1,000 mg 0010 (Given - Provider: Pablo Tran RN)0550 (Given - Provider: Pablo Tran, RN)1141 (Given - Provider: Hanny Ansari, KALIE)1714 (Given - Provider: García Douglas RN) 0016 (Given - Provider: Pablo Tran, RN)0604 (Given - Provider: Pablo Tran, RN)1235 (Given - Provider: Erin Celeste, KALIE)1808 (Given - Provider: Erin Celeste, KALIE) 0006 (Given - Provider: Pablo Tran, KALIE)0606 (Given - Provider: Pablo Tran, KALIE)1158 (Given - Provider: Erin Celeste, KALIE) 1,000 mg, Oral, EVERY 6 HOURS SCHEDULED, First dose on Wed03/31/22 at 1800, Until Discontinued, For pain when taking by mouth. Maximum dose of acetaminophen is 4000 mg from all sources in 24 hours. When ordered for pain, acetaminophen should be given even when other ordered pain medications are indicated., Routine AMIOdarone (Paceron) tablet 400 mg 0942 (Given - Provi james: Hanny Ansari RN) 0845 (Given - Provider: Erin Celeste RN) 0850 (Giv en - Provider: Eirn Celeste RN) 400 mg, Oral, DAILY, First dose on Wed at 1000, Until Discontinued, Routine aspirin chewable tablet 81 mg 08 50 (Given - Provider: Erin Celeste RN) 81 mg, Oral, DAILY, First dose on 03/25 at 0900, Until Discontinued, Routine aspirin EC tablet 325 mg (CANCELED) 0855 (Given - Prov ider: Hanny Ansari RN) 0845 (Given - Provider: Erin Celeste RN) 325 mg, Oral, DAILY, First dose on Wed at 0900, Until Discontinued, Routine benzonatate (Tessalon) capsule 100 mg 0856 (Given - Pr ovider: Hanny Ansari RN)1636 (Given - Provider: García Douglas, RN)2136 (Given - Provider: Pablo Tran, RN) 0844 (Given - Provider: Erin Celeste RN)1527 (Given - Provider: Erin Celeste RN)2040 (Given - Provider: Pablo Tran, KALIE) 0850 (Given - Provider: Erin Celeste RN) 100 mg, Oral, 3 TIMES DAILY, First dose on Wed04/05/22 at 0930, Until Discontinued, DO NOT CRUSH OR OPEN, Routine citalopram (CeleXA) tablet 20 mg 0856 (Given - Provider: Jocelyn Ansari RN) 0844 (Given - Provider: Erin Celeste RN) 0850 (Given - Provider: Erin Celeste RN) 20 mg, Oral, DAILY, First dose on Wed at 0900, Until Discontinued, Routine clopidogreL (Plavix) tablet 75 mg 0850 (Given - Provider: Erin Celeste RN) 75 mg, Oral, DAILY, First dose on 03/25 at 0900, Until Discontinued, Routine furosemide (Lasix) (10 mg/mL) injection 40 mg 0856 (Gi all - Provider: Hanny Ansari RN)1636 (Given - Provider: García Douglas, RN) 0847 (Given - Provider: Erin Celeste RN)1700 (Given - Provider: Erin Celeste RN) 0850 (Given - Provider: Erin Celeste RN) 40 mg, Intravenous, 2 TIMES DAILY, First dose (after last modification) on Wed04/03/22 at 1700, Until Discontinued guaiFENesin ER (Mucinex) tablet 600 mg 0856 (Given - P rovider: Hanny Ansari RN)2135 (Given - Provider: Pablo Tran, KALIE) 0846 (Given - Provider: Erin Celeste, KALIE)2039 (Given - Provider: Pablo Tran, KALIE) 0850 (Given - Provider: Erin Celeste, KALIE) 600 mg, Oral, EVERY 12 HOURS, First dose on Wed04/05/22 at 0900, Until Discontinued, DO NOT CRUSH OR OPEN, Routine heparin (porcine) (5,000 units/1 mL) sub cutaneous injection 5,000 Units (CANCELED) 0855 (Given - Provider: Hanny Ansari RN)2135 (Given - Provider: Pablo Tran RN) 0846 (Given - Provider: Erin Celeste RN)2039 (Given - Provider: Pablo Tran RN) 5,000 Units, Subcutaneous, EVERY 12 HOUR S SCHEDULED (2 times per day), First dose on Wed04/02/22 at 2100, Until Discontinued, Routine insulin lispro (HumaLOG;Admelog) (100 un it/mL) subcutaneous injection vial 1-4 Units (CANCELED) 0730 (Not Given - Provider: Hanny roque RN - Reason: Order parameters not met)1141 (Given - Provider: Hanny Ansari, KALIE)1630 (Not Given - Provider: García Douglas RN - Reason: Order parameters not met) 0730 (Not Given - Provider: Erin Celeste RN - Reason: Order parameters not met) 1-4 Units, Subcutaneous, 3 TIMES DAILY B EFORE MEALS, First dose on Wed04/01/22 at 1630, Until Discontinued, CORRECTION BOLUS [1-4 Units] Sensitive Sliding Scale (BG in mg/dL): Correction factor 40 ( 1 unit of insulin is expected to drop th e glucose 40 mg/dL) BG 160 - 200 Give 1 unit BG 201 - 240 Give 2 units BG 241 - 280 Give 3 units BG greater than 280, give 4 units and recheck BG in 2 hours. - If recheck BG is LESS than 280, give no in sulin and resume schedule - If recheck BG is GREATER than 280, give 4 units and repeat BG in 2 hours (no more than 3 times) & call for new insulin orders. DO NOT hold if NPO, unless specifically dir ected to do so by written order. Per Blood Glucose Monitoring Policy, re-check a BG of > 240 mg/dL in 2 hours., Routine insulin lispro (HumaLOG;Admelog) (100 un it/mL) subcutaneous injection vial 1-4 Units(Linked Group 1) 1130 (Not Given - Provider: Erin Celeste RN - Reason: Order parameters not met)1632 (Given - Provider: Erin Celeste RN) 0742 (Given - Provider: Erin Celeste RN)1130 (Not Given - Provider: Erin Celeste RN - Reason: Order parameters not met) 1-4 Units, Subcutaneous, 3 TIMES DAILY B EFORE MEALS, First dose on Wed04/07/22 at 1130, Until Discontinued, CORRECTION BOLUS [1-4 Units] Sensitive Sliding Scale (BG in mg/dL): Correction factor 40 (1 unit of insulin is expected to drop the glucose 40 mg/dL) BG 160 - 200 Give 1 unit BG 201 - 240 Give 2 units BG 241 - 280 Give 3 units BG greater than 280, give 4 units and recheck BG in 2 hours. - If recheck BG is LESS than 280, give no ins ulin and resume schedule - If recheck BG is GREATER than 280, give 4 units and repeat BG in 2 hours (no more than 3 times) & call for new insulin orders. DO N OT hold if NPO, unless specifically dire cted to do so by written order. Per Blood Glucose Monitoring Policy, re-check a BG of > 240 mg/dL in 2 hours., Routine lidocaine (Lidoderm) 5% patch 2 patch(Linked Group 2) 1744 (Not Given - Provider: García Douglas RN - Reason: Patient/family refused) 1744 (Not Given - Provider: Erin Celeste RN - Reason: Patient/family refused) 2 patch, Transdermal, EVERY 24 HOURS, Fi rst dose on Wed04/01/22 at 1745, Until Discontinued, Apply patch(es) for 12 hours, and then remove for 12 hours., Routine lidocaine (Lidoderm) topical patch REMOVAL(Linked Grou p 2) 0500 (Patch Not Removed (add comment) - Provider: Pablo Tran RN - Comment: Patch never applied) 0500 (Patch Not Removed (add comment) - Provider: Pablo Tran RN - Comment: Patch not applied) 0500 (Patch Not Removed (add comment) - Provider: Pablo Tran RN - Comment: Patch never applied) Transdermal, EVERY 24 HOURS, First dose on Wed04/02/22 at 0500, Until Discontinued, Remove lidocaine 5% patch magnesium hydroxide (Milk of Magnesia) (240 mg/mL) ora l liquid 10 mL 0900 (Not Given - Provider: Hanny Ansari RN - Reason: Patient/family refused) 0900 (Not Given - Provider: Erin Celeste RN - Reason: Patient/family refused) 0900 (Not Given - Provider: Erin Celeste RN - Reason: Patient/family refused) 10 mL, Oral, DAILY, First dose on Wed at 0900, Until Discontinued, Post- op day 2. Do not use with renal insufficiency., Routine metoprolol tartrate (Lopressor) tablet 12.5 mg 0844 (Given - Provider: Erin Celeste RN)0 (Given - Provider: Pablo Tran RN) 0851 (Given - Provider: Erin Celeste RN) 12.5 mg, Oral, EVERY 12 HOURS SCHEDULED (2 times per day), First dose on Wed04/07/22 at 0900, Until Discontinued, Hold for SBP<90 or HR<60, Routine miconazole (Micotin) 2 % powder 0855 (Given - Provider : Hanny Ansari, KALIE)6 (Given - Provider: Pablo Tran RN) 0849 (Given - Provider: Erin Celeste RN)2040 (Given - Provider: Pablo Tran RN) 0855 (Given - Provider: Erin Celeste RN) Topical (Top), 2 TIMES DAILY, First dose on Wed03/30/22 at 2100, Until Discontinued pantoprazole EC (Protonix) tablet 40 mg 0856 (Given - Provider: Hanny Ansari, KALIE) 0846 (Given - Provider: Erin Celeste, KALIE) 0851 (Giv en - Provider: Erin Celeste RN) 40 mg, Oral, DAILY, First dose on Wed at 1730, Until Discontinued, DO NOT CRUSH OR OPEN If unable to take PO, may give IV, Routine potassium chloride ER (K-Dur/Klor-Con) tablet 20 mEq (COMPLETED) 737 (Given - Provider: Erin Celeste RN) 20 mEq, Oral, ONCE, 1 dose, On Wed04/08/22 at 0730, Routine senna-docusate (Pericolace) 8.6-50 mg per tablet 2 tab let 2135 (Given - Provider: Pablo Tran RN) 2039 (Given - Provider: Pablo Tran, KALIE) 2 tablet, Oral, DAILY, First dose on Wed03/31/22 at 2100, Until Discontinued, Post-op day 1, Routine simvastatin (Zocor) tablet 20 mg 2135 (Given - Provider: Chente Tran RN) 2039 (Given - Provider: Pablo Tran RN) 20 mg, Oral, NIGHTLY, First dose on Wed03/30/22 at 2100, Until Discontinued, Routine sodium chloride 0.9 % (flush) (BD PosiFlush Normal Saline 0. 9) flush 5 mL 0849 (Given - Provider: Erin Celeste RN)1631 (Given - Provider: Erin Celeste RN) 0130 (Not Given - Provider: Pablo pierce RN - Reason: Order parameters not met)0858 (Given - Provider: Erin Celeste RN) 5 mL, Intravenous, EVERY 8 HOURS, First dose on Wed04/07/22 at 0930, Until Discontinued, Routine Continuous Medication Order 04/06/2022 04/07/2022 04/08/2022 AMIOdarone (Nexterone) (1.8 mg/mL) in de xtrose (iso-osmotic) infusion (CANCELED) 0000 (Rate/Dose Verify - Provider: Pablo Tran RN)0200 (Rate/Dose Verify - Provider: Pablo Tran, RN)0400 (Rate/Dose Verify - Provider: Pablo Tran, RN)0600 (Rate/Dose Verify - Provider: Pablo Tran RN) 0.5-1 mg/min (16.6667-33.3333 mL/hr, rou nded to 16.7-33.3 mL/hr), Intravenous, CONTINUOUS, Starting on Wed04/05/22 at 0215, Until Wed04/06/22 at 0900, 1 mg/min for 6 hrs, then 0.5 mg/min for 18 hrs. After 0800 (Rate/Dose Verify - Provider: Hanny Ansari, KALIE)0900 (Stopped - Provider: Hanny Ansari, RN) first 24 hours, order maintenance dose 0.5 mg/min. Use in-line filter. Warning Vesicant/Irritant Medication PRN Medication Order 04/06/2022 04/07/2022 04/08/2022 bisacodyL (Dulcolax) suppository 10 mg 10 mg, Rectal, DAILY PRN, Starting on 04/02/22 at 0000, Until Wed04/08/22 at 1504, Constipation, Starting post-op day 3., Routine dextromethorphan (Robitussin) capsule 15 mg 15 mg, Oral, EVERY 4 HOURS PRN, Starting on Wed04/05/22 at 0833, Until Wed04/08/22 at 1504, Cough, Routine dextrose 10% infusion(Linked Group 3) 250 mL, at 1,000 mL/hr, Intravenous, WINTER RY 30 MIN PRN, Starting on Wed04/07/22 at 0834, Until Wed04/08/22 at 1504, For BG 50-70 mg/dL: Oral treatment preferred: If able to drink, give 120 mL Juice or R egular (not diet) soda OR If NPO, give 1 5 gram glucose 40% oral gel massaged into buccal mucosa OR if unconscious or uncooperative, give 25 gram (250 mL) Dextrose 10% IV over 15 minutes per protocol OR, if no IV access, 1 mg Glucagon IM. F or BG less than 50 mg/dL: Oral treatment preferred: If able to drink, give 240 mL Juice or Regular (not diet) soda OR If NPO, give 30 gram glucose 40% oral gel ma ssaged in buccal mucosa OR if unconsciou s or uncooperative, give 25 gram (250 mL) Dextrose 10% IV over 15 minutes per protocol OR, if no IV access, 1 mg Glucagon IM. Recheck BG in 30 minutes. May repe at juice/soda, gel, dextrose or glucagon once per episode. For persistent hypoglycemia, consider longer-acting treatment for the duration of the active insulin. glucagon (Glucagen) (1 mg/mL) injection solution 1 mg(Linked Vince up 3) 1 mg, Intramuscular, EVERY 30 MIN PRN, S tarting on Wed04/07/22 at 0834, Until Wed04/08/22 at 1504, Low blood sugar, For BG 50-70 mg/dL: Oral treatment preferred: If able to drink, give 120 mL Juice or Regular (not diet) soda OR If NPO, give 15 gram glucose 40% oral gel massaged into buccal mucosa OR if unconscious or uncooperative, give 25 gram (250 mL) Dextrose 10% IV over 15 minutes per protocol OR , if no IV access, 1 mg Glucagon IM. For BG less than 50 mg/dL: Oral treatment preferred: If able to drink, give 240 mL Juice or Regular (not diet) soda OR If NPO, give 30 gram glucose 40% oral gel m assaged in buccal mucosa OR if unconscio us or uncooperative, give 25 gram (250 mL) Dextrose 10% IV over 15 minutes per protocol OR, if no IV access, 1 mg Glucagon IM. Recheck BG in 30 minutes. May rep eat juice/soda, gel, dextrose or glucago n once per episode. For persistent hypoglycemia, consider longer-acting treatment for the duration of the active insulin., Routine glucose (Glutose) 40% oral geL(Linked Group 3) 15-30 g of glucose, Buccal, EVERY 30 MIN PRN, Starting on Wed04/07/22 at 0834, Until Wed04/08/22 at 1504, Low blood sugar, For BG 50-70 mg/dL: Oral treatment preferred: If able to drink, give 120 mL Ju ice or Regular (not diet) soda OR If NPO , give 15 gram glucose 40% oral gel massaged into buccal mucosa OR if unconscious or uncooperative, give 25 gram (250 mL) Dextrose 10% IV over 15 minutes per prot ocol OR, if no IV access, 1 mg Glucagon IM. For BG less than 50 mg/dL: Oral treatment preferred: If able to drink, give 240 mL Juice or Regular (not diet) soda OR If NPO, give 30 gram glucose 40% ora l gel massaged in buccal mucosa OR if un conscious or uncooperative, give 25 gram (250 mL) Dextrose 10% IV over 15 minutes per protocol OR, if no IV access, 1 mg Glucagon IM. Recheck BG in 30 minutes. May repeat juice/soda, gel, dextrose or glucagon once per episode. For persistent hypoglycemia, consider longer-acting treatment for the duration of the active insulin. 1 tube of Glutose-15 contains 15 grams of glucose (net weight of tube = 37.5 grams.), Routine ipratropium-albuteroL (Duoneb) 0.5 mg-3 mg(2.5 mg base)/3 mL nebulizer solution 3 mL 3 mL, Nebulization, EVERY 4 HOURS PRN, S tarting on Wed04/01/22 at 1513, Until Wed04/08/22 at 1504, Wheezing, Routine ondansetron (pf) (Zofran) (2 mg/mL) injection 4 mg 4 mg, Intravenous, EVERY 8 HOURS PRN, St arting on Wed03/30/22 at 1637, Until Wed04/08/22 at 1504, Nausea oxyCODONE (Roxicodone) tablet 5-10 mg 5-10 mg, Oral, EVERY 4 HOURS PRN, Starti ng on Wed03/30/22 at 1637, Until Wed04/08/22 at 1504, Pain, - When tolerating oral medications. - Initial dose 5 mg. - If pain control not adequate in 60 minutes, give additional 5 mg., Routine potassium chloride 20 mEq in sterile water 100 mL infu claudia (CANCELED) 0433 (New Bag - Provider: Pablo Tran RN)0533 (Stopped - Provider: Pablo Tran, RN)0550 (New Bag - Provider: Pablo Tran RN)0650 (Stopped - Provider: Hanny Ansari RN) 20 mEq, Intravenous, EVERY 1 HOUR PRN, S tarting on Wed03/30/22 at 1637, Until Wed04/07/22 at 0834, Administer over 60 Minutes, hypokalemia, Administer 3 doses for a serum potassium (mMol/L) of 2.8 - 3.2 See instructions for Potassium Protocol in online policies. Linked Groups Order Group 1: POCT Fingerstick Glucose (CANCELED) Routine, 4 TIMES DAILY BEFORE MEALS & AT BEDTIME, First occurrence on Wed04/07/22 at 1100, Until Specified
Consider choosing FOUR TIMES A DAY BEFORE MEALS AND AT BEDTIME as frequency for : Patients who have good hypoglycemia aw areness: -Patients who are eating meals during the day and sleeping at night -Patient who are otherwise stable And insulin lispro (HumaLOG;Admelog) (100 unit/mL) subcutaneous injection vial 1-4 UnitsJump to med 1-4 Units, Subcutaneous, 3 TIMES DAILY B EFORE MEALS, First dose on Wed04/07/22 at 1130, Until Discontinued
CORRECTION BOLUS [1-4 Units] Sensitive Sliding Scale (BG in mg/dL): Correc tion factor 40 (1 unit of insulin is exp ected to drop the glucose 40 mg/dL) BG 160 - 200 Give 1 unit BG 201 - 240 Give 2 units BG 241 - 280 Give 3 units &nbs p;BG greater than 280, give 4 units and recheck BG in 2 hours. - If recheck BG is LESS than 280, give no insulin and resume schedule - If recheck BG is GREATER than 280, give 4 units and repeat BG in 2 hours (no more than 3 times) & call for new insulin orders. DO NOT hold if NPO, unless specifically directed to do so by written order.& amp;nbsp; Per Blood Glucose Monitor ing Policy, re-check a BG of > 240 mg/dL in 2 hours.
Routine Group 2: lidocaine (Lidoderm) 5% patch 2 patchJump to med 2 patch, Transdermal, EVERY 24 HOURS, Fi rst dose on Wed04/01/22 at 1745, Until Discontinued
Apply patch(es) for 12 hours, and then remove for 12 hours.
Routine And lidocaine (Lidoderm) topical patch REMOVALJump to med Transdermal, EVERY 24 HOURS, First dose on Wed04/02/22 at 0500, Until Discontinued
Remove lidocaine 5% patch
Group 3: glucose (Glutose) 40% oral geLJump to med 15-30 g of glucose, Buccal, EVERY 30 MIN PRN, Starting on Wed04/07/22 at 0834, Until Wed04/08/22 at 1504, Low blood sugar
For BG 50-70 mg/dL: Oral treatment preferred: If able to dri nk, give 120 mL Juice or Regular (not diet) soda OR If NPO, give 15 gram glucose 40% oral gel massaged into buccal mucosa OR if unconscious or uncooperative, give 25 gram (250 mL) Dextrose 10% IV over 1 5 minutes per protocol OR, if no IV access, 1 mg Glucagon IM. For BG less than 50 mg/dL: Oral treatment prefe rred: If able to drink, give 240 mL Juic e or Regular (not diet) soda OR If NPO, give 30 gram glucose 40% oral gel massaged in buccal mucosa OR if unconscious or uncooperative, give 25 gram (250 mL) Dext lilian 10% IV over 15 minutes per protocol OR, if no IV access, 1 mg Glucagon IM. Recheck BG in 30 minutes. May repeat juice/soda, gel, dextrose or glucagon once per episode.&nbsp ; For persistent hypoglycemia, c onsider longer-acting treatment for the duration of the active insulin. 1 tube of Glutose-15 contains 15 grams of glucose (net weight of tube = 37.5 grams.)
Routine Or dextrose 10% infusionJump to med 250 mL, at 1,000 mL/hr, Intravenous, WINTER RY 30 MIN PRN, Starting on Wed04/07/22 at 0834, Until Wed04/08/22 at 1504
For BG 50-70 mg/dL: Oral treva atment preferred: If able to drink, give 120 mL Juice or Regular (not diet) soda OR If NPO, give 15 gram glucose 40% oral gel massaged into buccal mucosa OR if unconscious or uncooperative, give 25 gram (250 mL) Dextrose 10% IV over 15 minute s per protocol OR, if no IV access, 1 mg Glucagon IM. For BG less than 50 mg/dL: Oral treatment preferred: If able to drink, give 240 mL Juice or Reg ular (not diet) soda OR If NPO, give 30 gram glucose 40% oral gel massaged in buccal mucosa OR if unconscious or uncooperative, give 25 gram (250 mL) Dextrose 10% IV over 15 minutes per protocol OR, if no IV access, 1 mg Glucagon IM. Recheck BG in 30 minutes. May repeat juice/soda, gel, dextrose or glucagon once per episode. &nb sp; For persistent hypoglycemia, consi james longer-acting treatment for the duration of the active insulin.
Or glucagon (Glucagen) (1 mg/mL) injection solution 1 mgJump to med 1 mg, Intramuscular, EVERY 30 MIN PRN, S tarting on Wed04/07/22 at 0834, Until Wed04/08/22 at 1504, Low blood sugar
For BG 50-70 mg/dL: Oral tr eatment preferred: If able to drink, giv e 120 mL Juice or Regular (not diet) soda OR If NPO, give 15 gram glucose 40% oral gel massaged into buccal mucosa OR if unconscious or uncooperative, give 25 gra m (250 mL) Dextrose 10% IV over 15 minut es per protocol OR, if no IV access, 1 mg Glucagon IM. For BG less than 50 mg/dL: Oral treatment preferred: I f able to drink, give 240 mL Juice or Re gular (not diet) soda OR If NPO, give 30 gram glucose 40% oral gel massaged in buccal mucosa OR if unconscious or uncooperative, give 25 gram (250 mL) Dextrose 10 % IV over 15 minutes per protocol OR, if no IV access, 1 mg Glucagon IM. Recheck BG in 30 minutes. May repeat juice/soda, gel, dextrose or glucagon once per episode. &n bsp; For persistent hypoglycemia, cons ider longer-acting treatment for the duration of the active insulin.
Routine documented in this encounter Care Teams Flour Mixer Helper Relationship Specialty Start Date End Date Harshal Godfrey MD PCP - General Family Medicine 02/18/[address] [facility] [place] [address] documented as of this encounter
--- OUTSIDE RECORDS SUMMARY | 2022-08-21 01:38 | XMS_ITS | Encounter Summary ---
:1950 Author Organization [facility] [address] Care Team Providers Name Role Phone Harshal Godfrey MD Primary Care Provider [phone] Encounter Details Date Type Department Care Team Description 03/23/2022 Orders Only Cardiac Surgery Vesna Trent APRN [facility] Aleena marrero [facility] [place] [address] CARDIAC SURGERY [phone] [place] [id number] (Wo rk) Social History Tobacco Use Types [...] place to sleep or slept in a longterm (including now)? Sex Assigned at Date Recorded Not on file documented as of this encounter Plan of Treatment Upcoming Encounters Date Type Specialty Care Team Description 08/21/2022 Scheduled View Only Hematology and Dameon Hernandez MD [facility] [place] [address] [address] H[place]ATOLOGY AND [place], [place] [phone] 08/21/2022 TH Visit (TeleHealth) Hematology and Reddy Hernandez Oncology [facility] [address] [place], [place] [address] (Wo rk) 08/21/2022 Infusion Hematology and Oncology 08/28/2022 Office Visit Hematology and Reddy Hernandez Oncology [facility] [address] [place], [place] [address] (Wo rk) 08/28/2022 Infusion Hematology and Oncology 09/11/2022 Office Visit Reddy Thompson MD [facility] [place] [address] [address] H[place]ATOLOGY AND [place], [place] [phone] 09/11/2022 Infusion Hematology and Oncology 09/18/2022 Office Visit Hematology and Nikky Pak, Oncology [address] [place] [address] (Wo rk) 09/18/2022 Infusion Hematology and Oncology 03/10/2023 Office Visit Cardiology Ofelia Rubalcava MD [facility] [address] [place], [place] [address] (Wo rk) documented as of this encounter Visit Diagnoses Not on filedocumented in this encounter Care Teams Silo Worker Relationship Specialty Start Date End Date Harshal Godfrey MD PCP - General Family Medicine 02/18/22 [address] [place], [place] [phone] documented as of this encounter
--- OUTSIDE RECORDS SUMMARY | 2022-08-21 01:38 | XMS_ITS | Encounter Summary ---
:1950 [place] [address] Care Team Providers Name Role Phone Harshal Godfrey MD Primary Care Provider [phone] Encounter Details Date Type Department Care Team Description 02/18/2022 Office Visit Cardiology at Ofelia Rubalcava MD Aortic stenosis, severe; [facility] Primary hypertension [address] [place] [address] [place], [place] [phone] (Work) [phone] Social History Tobacco Use Types Packs/Day Years Used Date Smoking Tobacco: Former Smokeless Tobacco: Never Alcohol Use Standard Drinks/Week [...] Sign Reading Time Taken Comments Blood Pressure 109/55 02/18/2022 1:20 PM EDT Pulse 89 02/18/2022 1:20 PM EDT Temperature - - Respiratory Rate - - Oxygen Saturation - - Inhaled Oxygen Concentration - - Weight 102.9 kg (226 lb 12.8 oz) 02/18/2022 1:10 PM EDT Height 147.3 cm (4' 10) 02/18/2022 1:10 PM EDT Body Mass Index 47.4 02/18/2022 1:10 PM EDT documented in this encounter Progress Notes Ofelia Rubalcava MD - 02/18/2022 1:00 PM EDT CARDIOLOGY OUTPATIENT NEW PATIENT NOTE PRIMARY CARE PROVIDER: Harshal Godfrey MD REFERRING PROVIDER: Harshal Godfrey PROBLEM LIST: Patient Active Problem List Diagnosis ??? Bradycardia ??? Left atrial dilation ??? Aortic stenosis, severe ??? Diabetes mellitus ??? Hypertension ??? SOB (shortness of breath) ??? Lung nodule ??? Dermatitis MEDICATIONS: Current Outpatient Medications Medication Sig Dispense Refill ??? citalopram (CeleXA) 20 mg Tablet Take 20 mg by mouth daily. ??? furosemide (Lasix) 20 mg Tablet Take 20 mg by mouth 2 times daily. ??? albuteroL 90 mcg/actuation HFA Aerosol Inhaler Inhale 2 puffs into the lungs every 4 hours as needed for Wheezing. Use with spacer ??? simvastatin (ZOCOR) 20 mg tablet Take 20 mg by mouth nightly. ??? verapamil (CALAN-SR) 180 mg CR tablet Take 180 mg by mouth nightly. ??? metFORMIN (GLUCOPHAGE) 500 mg tablet Take 500 mg by mouth 2 times daily (with meals). ??? losartan (COZAAR) 100 mg tablet Take 100 mg by mouth daily. ??? aspirin 81 mg EC tablet Take 81 mg by mouth daily. No current facility-administered medications for this visit. Subjective: Patient ID: Marcelle Conner is a 72 y.o. female. HPI This 72-year-old woman presents for cardiac evaluation. She has a history of hypertension, dyslipidemia and a heart murmur. She is a fairly good historian. She reports that since last August she has had 3 echocardiograms. One of them was probably done with contrast for better endocardial definition.It sounds as though in September she had at least moderate aortic stenosis with a valve area of 0.9 cm??. She had pneumonia in November. This took her a while to recover and she is still short of breathwith activity. She is not short of breath at rest nor does she have edema, PND or orthopnea. She does not describe exertional chest discomfort dizziness lightheadedness syncope or near syncope. She hada subsequent echocardiogram done about 2 weeks ago. This showed progression of her aortic stenosis such that the peak gradient is 69, mean 36 and a calculated aortic valve area of 0.6 cm??. There was mild left ventricular hypertrophy. EF was estimated at 60 to 65%. The left atrium was described as severely dilated. Ascending aortic size was normal She has never been evaluated for sleep apnea. She reports that she does snore. 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 This is very busy and she works more than 40 hours a week. 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 Review of System Review of Systems Constitutional: Positive for malaise/fatigue. Cardiovascular: Positive for dyspnea on exertion. Negative for chest pain, leg swelling, near-syncope, orthopnea, palpitations, paroxysmal nocturnal dyspnea and syncope. Respiratory: Positive for shortness of breath and snoring. All other systems reviewed and are negative. Family History: Mother had a pacemaker. No family history of valvular heart disease Social History: Social History Socioeconomic History ??? Marital status: Spouse name: Not on file ??? Number of children: Not on file ??? Years of education: Not on file ??? Highest education level: Not on file Occupational History ??? Not on file Tobacco Use ??? Smoking status: Never Smoker ??? Smokeless tobacco: Never Used Vaping Use ??? Vaping Use: Never used Substance and Sexual Activity ??? Alcohol use: Not on file ??? Drug use: Not on file ??? Sexual activity: Not on file Other [...] reviewed. Constitutional: Comments: Obese no acute distress Eyes: Extraocular Movements: Extraocular movements intact. Neck: Comments: Neck is short and thick. Unable to assess JVP. Carotid pulsations are probably diminishedand delayed. There are faint bilateral transmitted murmurs Cardiovascular: Comments: Apical impulse is nonpalpable. Heart tones are distant. There is a 2/6 high-pitched systolic ejection quality murmur consistent with aortic stenosis. I do not hear any diastolic murmur or gallop Pulmonary: Effort: Pulmonary effort is normal. Breath sounds: Normal breath sounds. Abdominal: Comments: Very obese and nontender Musculoskeletal: Comments: No significant edema, intact distal pulses Skin: General: Skin is warm and dry. EKG today shows sinus rhythm with atrial and ventricular ectopic beats ST-T abnormalities Assessment and Plan: #1. Aortic stenosis. The patient has severe aortic stenosis which apparently has significantly worsened over the last 6 months on serial echocardiograms. She describes exertional dyspnea, no chest discomfort no rest symptoms We discussed the natural history of aortic valvular disease which is to progress over time. She is at a point where she should have further evaluation as to possible aortic valve replacement. We reviewed that this begins with a cardiac catheterization to evaluate for underlying coronary disease. It can help plan surgical or interventional approach We reviewed conventional surgical aortic valve replacement, and also briefly reviewed transcatheter aortic valve replacement. We discussed that with conventional surgery valve replacement can be either a bioprosthesis or mechanical. TAVR places a bioprosthetic valve Patient was agreeable to proceeding a referral will be placed to [facility] to schedule her cardiac catheterization. She is aware that preprocedure labs are necessary and request that these be performedin [place]. We have not scheduled a follow-up but await results of further testing at [facility], and their recommendations Thank you for the opportunity to participate in this patient's cardiovascular care. All questions were answered and I look forward to the next visit. documented in this encounter Plan of Treatment Upcoming Encounters Date Type Specialty Care Team Description 08/21/2022 Scheduled View Only Hematology and Dameon Hernandez MD [facility] [place] [address] [address] HEMATOLOGY AND [place], [place] [phone] 08/21/2022 TH Visit (TeleHealth) Hematology and Reddy Hernandez Oncology [facility] [address] [place], [place] [address] (Wo rk) 08/21/2022 Infusion Hematology and Oncology 08/28/2022 Office Visit Hematology and Reddy Hernandez Oncology [facility] [address] [place], [place] [address] (Wo rk) 08/28/2022 Infusion Hematology and Oncology 09/11/2022 Office Visit Hematology and Reddy Hernandez MD [facility] [place] [address] On[address] HEMATOLOGY AND [place], [place] [address] 09/11/2022 Infusion Hematology and Oncology 09/18/2022 Office Visit Hematology and Nikky Pak, Oncology [address] HEMATOLOGY AND [facility], [place] [phone] (Wo rk) 09/18/2022 Infusion Hematology and Oncology 03/10/2023 Office Visit Cardiology Ofelia Rubalcava MD [facility] [place], [place] [address] (Wo rk) documented as of this encounter Visit Diagnoses Diagnosis Aortic stenosis, severe Aortic valve disorders Primary hypertension Unspecified essential hypertension Colon cancer metastasized to liver Malignant neoplasm of colon, unspecified site documented in this encounter Care Teams Plant Engineer Relationship Specialty Start Date End Date Harshal Godfrey MD PCP - General Family Medicine 02/18/22 [facility] [place] [address] documented as of this encounter
--- OUTSIDE RECORDS SUMMARY | 2022-08-21 01:38 | XMS_ITS | Encounter Summary ---
:1950 Author Organization [facility] Address [place] [address] Care Team Providers Name Role Phone Harshal Godfrey MD Primary Care Provider [phone] Encounter Details Date Type Department Care Team Description 03/23/2022 Hospital Encounter XRay at [facility] [place], Aortic valve [address] Abdulkadir MD stenosis, etiology [facility] [place] [id number] CENTER disease unspecified [phone] [place] [address] Social History Tobacco Use Types Packs/Day Years [...] mg by mouth 0 daily. AMIOdarone (PACERONE) Take 1 tablet by 30 tablet 0 04/09/20 22 05/09/2022 400 mg Tablet mouth daily for 30 days. clopidogreL (Plavix) 75 Take 1 tablet by 90 tablet 3 202104/10/2022 mg Tablet mouth daily for 360 days. furosemide (Lasix) 20 mg Take 2 tablets by 84 tablet 0 07/0 03/202204/10/2022 Tablet mouth 2 times daily for 14 days, THEN 1 tablet 2 times daily for 14 days. dextromethorphan-guaiFEN Take 5 mLs by mouth 3 0 04/08/2022 07/10/2022 esin (Robitussin) 10-100 times daily as needed mg/5 mL Syrup for Cough. metoproloL tartrate Take 0.5 tablets by 30 tablet 3 022 04/10/2022 (Lopressor) 25 mg Tablet mouth 2 times daily. furosemide (Lasix) 20 mg Take 20 mg by mouth 2 0 04/08/2022 Tablet times daily. ProChamber Spacer Inhale 1 Package into 0 022 07/10/2022 the lungs every 6 hours as needed. sulfamethoxazole-trimeth Take 1 tablet by 10 tablet 0 03/2303/28/2022 oprim DS (Bactrim DS) mouth 2 times daily 800-160 mg Tablet for 5 days. chlorhexidine Apply topically daily 120 mL 0 03/23/2022 04/08/2022 (HIBICLENS) 4 % Liquid as needed. Shower from head to toe with Chlorhexidine the night before surgery . mupirocin (Bactroban) 2 Apply 1 each 22 g 0 03/23/2022 04/08/2022 % Ointment topically 2 times daily. Apply a small amount to each nostril twice daily. Begin 5 days prior to the day of surgery. albuteroL (Proventil) Take 2.5 mg by 0 04/08/2022 2.5 mg /3 mL (0.083 %) nebulization every 4 Solution for hours as needed for Nebulization Wheezing. multivitamin (THERAGRAN) Take 1 tablet by 0 07/10/2022 Tablet mouth daily. albuteroL 90 Inhale 2 puffs into 0 04/2022 mcg/actuation HFA the lungs every 4 Aerosol Inhaler hours as needed for Wheezing. Use with spacer verapamil (CALAN-SR) 180 Take 180 mg by mouth 0 04/08/2022 mg CR tablet daily. losartan (COZAAR) 100 mg Take 100 mg by mouth 0 04/08/2022 Tablet daily. documented as of this encounter Plan of Treatment Upcoming Encounters Date Type Specialty Care Team Description 08/21/2022 Scheduled View Only Hematology and Dameon Hernandez MD [facility] [place] [address] [address] HEMATOLOGY AND [place], [place] [phone] 08/21/2022 TH Visit (TeleHealth) Hematology and Reddy Hernandez Oncology [facility] [address] [place] [place] [address] (Wo rk) 08/21/2022 Infusion Hematology and Oncology 08/28/2022 Office Visit Hematology and Reddy Hernandez Oncology [facility] [address] [place], [place] [address] (Wo rk) 08/28/2022 Infusion Hematology and Oncology 09/11/2022 Office Visit Hematology and Reddy Hernandez MD [facility] [place] [place] [address] On[address] [place], [place] [phone] 09/11/2022 Infusion Hematology and Oncology 09/18/2022 Office Visit Hematology and Nikky Pak Oncology [address] [place], [place] [phone] (Wo rk) 09/18/2022 Infusion Hematology and Oncology 03/10/2023 Office Visit Cardiology Ofelia Rubalcava MD [facility] [address] [place] [address] (Wo rk) documented as of this encounter Procedures Procedure Name Priority Date/Time Associated Diagnosis Comme nts XR CHEST PA AND Routine 03/23/2022 1:00 PM Aortic valve Result s for this LATERAL EDT stenosis, etiology procedure are in of cardiac valve the results disease unspecified section. documented in this encounter Results XR Chest PA & Lateral (Generic) (03/23/2022 1:00 PM EDT) Anatomical Region Laterality Modality Chest N/A Digital Radiography Specimen (Source) Anatomical Location Collection Method / Collectio n Time Received Time / Laterality Volume Impressions 03/23/2022 1:17 PM EDT Prominence of interstitial markings suggesting mild form of pulmonary edema. Thank you for letting us participate in the care of this patient. ??If you are a health care provider and have any questi ons regarding this report, please contact the number below. ??For patients who have questions please contact the health health care coach that requested your imaging first. ? Electronically signed by: Jamison Grande , [facility] ([phone]), at 03/23/2022 1:17 PM Narrative 03/23/2022 1:17 PM EDT EXAMINATION: XR CHEST PA AND LATERAL (GENERIC) CLINICAL HISTORY: shortness of breath TECHNIQUE: PA and lateral views of the chest COMPARISON: None FINDINGS: There is diffuse prominence of interstit ial markings suggesting mild form of pulmonary edema. No pleural effusions or pneumothorax. The cardiomediastinal silhouette is unremarkable in appearance . Procedure Note Jamison Brunner MD - 03/23/2022Format ting of this note might be different from the original. EXAMINATION: XR CHEST PA AND LATERAL (GE NERIC) CLINICAL HISTORY: shortness of breath TECHNIQUE: PA and lateral views of the chest COMPARISON: None FINDINGS: There is diffuse prominence of interstit ial markings suggesting mild form of pulmonary edema. No pleural effusions or pneumothorax. The cardiomediastinal silhouette is unremarkable in appearance . IMPRESSION Prominence of interstitial markings sugg esting mild form of pulmonary edema. Thank you for letting us participate in the care of this patient. If you are a health care provider and have any questi ons regarding this report, please contact the number below. For patients w ho have questions please contact the health health care coach that requested your imaging first. Abdulkadir Raya MD IMG DX ORDERABLES documented in this encounter Visit Diagnoses Diagnosis Aortic valve stenosis, etiology of cardi ac valve disease unspecified Colon cancer metastasized to liver Malignant neoplasm of colon, unspecified site documented in this encounter Care Teams Senior Instrumentation Engineer Relationship Specialty Start Date End Date Harshal Godfrey MD PCP - General Family Medicine 02/18/22 [address] [place] [address] documented as of this encounter
--- OUTSIDE RECORDS SUMMARY | 2022-08-21 01:38 | XMS_ITS | Encounter Summary ---
:1950 Author Organization [facility] Address [facility] [place] [address] Care Team Providers Name Role Phone Harshal Godfrey MD Primary Care Provider [phone] Encounter Details Date Type Department Care Team Description 03/23/2022 Public Health Public Health at [facility] C Encounter for preprocedure [facility] D [place] [address] testing for COVID-19 Social History Tobacco Use Types Packs/Day Years [...] and Dameon Hernandez MD [facility] [place] [address] [address] [place] AND [place], [place] [phone] 08/21/2022 TH Visit (TeleHealth) Hematology Reddy Young Oncology [facility] [address] [place], [place] [address] (Wo rk) 08/21/2022 Infusion Hematology and Oncology 08/28/2022 Office Visit Reddy Thompson Oncology [facility] [address] [place] [place], [place] [address] (Wo rk) 08/28/2022 Infusion Hematology and Oncology 09/11/2022 Office Visit Reddy Thompson MD [facility] [place] [address] Oncology [address] [place] AND [place], [place] [phone] 09/11/2022 Infusion Hematology and Oncology 09/18/2022 Office Visit Hematology and Nikky Pak Oncology [address] [place] AND [place], [place] [phone] (Wo rk) 09/18/2022 Infusion Hematology and Oncology 03/10/2023 Office Visit Cardiology Ofelia Rubalcava MD [facility] [place], [place] [address] (Luis F rk) documented as of this encounter Procedures Procedure Name Priority Date/Time Associated Diagnosis Comme nts COVID-19 PCR Routine 03/23/2022 5:41 PM Encounter for Results for this EDT preprocedure screening proce vicentae are in laboratory testing for the r esults COVID-19 section. documented in this encounter Results COVID-19 PCR (03/23/2022 5:41 PM EDT) [facility] Method Time Signature SARS-CoV-2 Not Detected Not Detected OFELIA MORR[facility] Comment: This result should be interpreted in com bination with the clinical observations, patient history and epidem iological information in making a final diagnosis. For testing of asymptomatic i ndividuals, assay performance characteristics and clinical utility hav e not been evaluated. Testing for SARS-CoV-2 (Severe acute respiratory syn drome coronavirus 2, formerly known as 2019 novel coronavirus or 2019-nCoV) to aid in the diagnosis of COVID-19 is performed using the [employer] m LINDA S-CoV-2 Assay as authorized by the FDA Emergency Use Authorization (EUA). This EUA assay is intended for In-vitro Diagnostic (IVD) use with respiratory sp ecimens such as nasopharyngeal swabs collected from individuals during the ac [place] phase of infection. This assay is performed based on the instructions for use provided by [employer] and additional guidance provided by CDC and FDA. Testing is performed in the [facility] within the Department of Pathology and Laboratory Medicine at [facility], certified under the Clinical Laboratory Improvement Amendments of 1988 (CLIA), 42 U.S.C. 263a, to perform high complexi ty tests. Assay performance has been verified according to clinical laborator y regulatory requirements for use with specimens collected from individuals vanessa pected of COVID-19. Test results are provided above. A result of Not Detecte d indicates that the viral RNA target is not present above the limit of detect ion, but does not preclude SARS-CoV-2 infection. False negative results may oc cur if a specimen is improperly collected, transported or handled; if am plification inhibitors are present; or if inadequate numbers of viral particles are present in the specimen. When a diagnostic test is negative, the possibi lity of a false negative result should be considered in the context of a patien t's recent exposures and the presence of clinical signs and symptoms consisten t with COVID-19. A result of Detected indicates that RNA from SARS-CoV-2 was d etected and the patient is infected. As required or requested by [facility], positive specimens may be sent for additional testing. Positive an d negative predictive values for this test are highly dependent on disease pre valence. A result of Invalid indicates that neither the viral RNA tar gets nor the internal control target was detected. An invalid result suggests the presence of inhibitors. Recollection and re-testing is recommend ed in the case of an invalid result. CDC COVID-19 criteria for testing on hum an specimens and clinical management guidance information are available at [facility] CDC Coronavirus Disease 2019 (COVID-19) webpage under Information fo r Healthcare Professionals (https://www.cdc.gov/coronavirus/2019-nc ov/hcp/index.html) Additional information about this and ot her EUA tests can be found in provider and patient fact sheets at the following FDA website: https://www.fda.gov/medical-devices/fgdeylzamaj-mgwjuwj-3720-oxhqv-96-ncghrkicq- vdc-nkqlamodjuhoqg-zgppibm-devices/ipbjb-wynbcblcgqj-wdtc SARS-Cov-2 RNA Source RIGGING MAN Swab [facility] Specimen (Source) Anatomical Collection Method Collection Time Re ceived Time Location / / Volume Laterality Nasopharyngeal Swab 03/23/2022 5:41 03/23 PM EDT 5:41 PM EDT Comment: Symptoms->Asymptomatic Resulting Agency Comment Spec In Lab Abdulkadir Raya MD MICROBIOLOGY - GENERAL ORDER LAINA Performing Organization Address City/State/[place] [address] documented in this encounter Visit Diagnoses Diagnosis Encounter for preprocedure screening lab oratory testing for COVID-19 Colon cancer metastasized to liver Malignant neoplasm of colon, unspecified site documented in this encounter Care Teams It Security Manager Relationship Specialty Start Date End Date Harshal Godfrey MD PCP - General Family Medicine 02/18/22 [address] [place] [address] documented as of this encounter
--- OUTSIDE RECORDS SUMMARY | 2022-08-21 01:38 | XMS_ITS | Encounter Summary ---
:1950 Author Organization [place] [address] Care Team Providers Name Role Phone Harshal Godfrey MD Primary Care Provider [phone] Encounter Details Date Type Department Care Team Description 02/18/2022 Telephone Cardiology at Ofelia Ray MD [address] [facility] [address] [facility] [place] [address] [place] [address] [phone] (Wo rk) Social History Tobacco Use Types [...] encounter Miscellaneous Notes Telephone Encounter - Naomy Wahl RN - 02/19/2022 11:18 AM EDT Call and information/teaching with March. Cardiac catheterization will happen March 19. Marcelle should arrive at [facility] to [place] at the Same Day Surgery desk at 10:00 am and the procedure will be at 11:[address] Vences. Requirements: * Lab work must be done. Orders will be sent to [facility] in [place], [place], for Marcelle's convenience. * COVID 19 testing must be done 72 hours in advance. Orders will be sent to [facility] in [place], and should be done on March 16 Patient instructions: Nothing to eat or drink on March 19. [address] your [address] to arrive a little before 10 am on March 19 - to allow for parking, restroom, long walk to [facility] Plan to have someone else drive you home. If you have questions about the booklet provided or the procedure, you may call us or the cardiac clinical laboratory scientist in [place]. Telephone Encounter - Naomy Wahl RN - 02/18/2022 1:56 PM EDT [phone] Message left for Card Coil Taper scheduling Referral for left heart cath for aortic stenosis March is diabetic and will need to travel from [facility] Suggestion: SCHEDULE at 10 am or later Patient plans to have procedure-related blood work done at [facility] in [place], [place] documented in this encounter Plan of Treatment Upcoming Encounters Date Type Specialty Care Team Description 08/21/2022 Scheduled View Only Hematology and Dameon Hernandez MD [facility] [place] [address] Oncology [address] HEMATOLOGY AND [place], [place] [phone] 08/21/2022 TH Visit (TeleHealth) Hematology and Reddy Hernandez , Oncology [facility] [place], [place] [address] (Wo rk) 08/21/2022 Infusion Hematology and Oncology 08/28/2022 Office Visit Hematology and Reddy Hernandez Oncology [facility] [address] [place], [place] [address] (Wo rk) 08/28/2022 Infusion Hematology and Oncology 09/11/2022 Office Visit Hematology and Reddy Hernandez MD [facility] [place] [address] Oncology [address] HEMATOLOGY AND [place], [place] [phone] 09/11/2022 Infusion Hematology and Oncology 09/18/2022 Office Visit Hematology and Nikky Pak, Oncology [address] HEMATOLOGY AND [place], [place] [phone] (Wo rk) 09/18/2022 Infusion Hematology and Oncology 03/10/2023 Office Visit Cardiology Ofelia Rubalcava MD [facility] [address] [place] [address] (Wo rk) documented as of this encounter Visit Diagnoses Not on filedocumented in this encounter Care Teams Car Attendant Relationship Specialty Start Date End Date Harshal Godfrey MD PCP - General Family Medicine 02/18/22 [address] [place] [address] documented as of this encounter
--- OUTSIDE RECORDS SUMMARY | 2022-08-21 01:38 | XMS_ITS | Encounter Summary ---
:1950 [place] [address] Care Team Providers Name Role Phone Harshal Godfrey MD Primary Care Provider [phone] Reason for Visit Auth/Cert Specialty Diagnoses / Procedures Referred By Contact Refer red To Contact Diagnoses CAD (coronary artery disease) CAD/ . Abdulkadir Raya [facility] Procedures PRO REPLACEMENT PROSTHETIC AORTIC VALVE OPEN W CARDIOPULMONARY BYPASS HOMOGRF/STENT PRO CABG, ARTERIAL, SINGLE PRO CABG, ARTERY-VEIN, TWO PRO ENDOSCOPY W/VIDEO-ASST VEIN HARVEST, CABG MD @REPLACE AORTIC VALVE, OPEN, W\CPB, W\PROSTHETIC VALVE (WRVU 41.32) @CABG, USING ARTERIAL GRAFT;SINGLE ARTERIAL GRAFT (WRVU 33.75) @CABG, TWO VENOUS GRAFTS & ARTERIAL GRAFT (WRVU 7.93) ENDOSCOPIC HARVEST VEIN(S) FOR CABG (WRVU 0.31) [facility] [place] [address] Referral ID Status Reason Start Date Expiration Date Visits Requ ested Visits Authorized [id number] 1 1 Encounter Details Date Type Department Care Team Description 03/30/2022 Surgery Main Operating Room Abdulkadir Raya, @REPLACE AORTIC VALVE, [facility] OPEN, W\CPB, [facility] W\PROSTHETIC VALVE [facility] (WRVU 41.32) Drive [place] [address] [place] [address] [phone] (Wo rk) Social History Tobacco Use Types [...] Sign Reading Time Taken Comments Blood Pressure 139/96 03/30/2022 6:23 AM EDT Pulse 113 03/30/2022 6:23 AM EDT Temperature 36.5 ??C (97.7 ??F) 03/30/2022 6:19 AM EDT Respiratory Rate 18 03/30/2022 6:19 AM EDT Oxygen Saturation 90% 03/30/2022 6:23 AM EDT Inhaled Oxygen Concentration - - Weight 100.4 kg (221 lb 5.5 oz) 03/30/2022 6:19 AM EDT Height 147.3 cm (4' 9.99) 03/30/2022 7:21 AM EDT Body Mass Index 48.44 03/30/2022 7:21 AM EDT documented in this encounter Discharge Summaries Konstantin Amado PA - 04/08/2022 9:15 AM EDT Inpatient - Discharge Summary Patient Name: Marcelle Albarran Patient Age: 72 y.o. Birthdate: 1950 Language: Argentine Race: White Ethnicity: Not nor Admit Date: 03/30/2022 Discharge Date: 04/08/2022 Attending Physician: Abdulkadir Raya MD Follow-up Recommendations for Providers: ??? Please continue routine management of cardiovascular risk factors including blood pressure, lipids, glucose, etc. ??? Please note any changes to medications. ??? Patient to follow up with PCP, Harshal Godfrey MD, in 1-2 weeks. ??? Patient to follow up with [employer], Ofelia Rubalcava MD, 04/29/22. ??? Patient to follow up with Cardiac Surgeon, Dr. Abdulkadir Raya, 05/08/22 with a chest x-ray, EKG, and Echo. ??? Patient to follow up with Pulmonology. Inpatient Provider Contact Information: [facility] Section of Cardiac Surgery [facility] [address] FAX [phone] Discharge Diagnoses (Hospital Problems) Primary Diagnoses: Aortic [...] HYSTERECTOMY, TOTAL ABDOMINAL ? ? PRG CATH PLSC CORONARY ART W/INJ FOR ANGIO W/R HEART CATH IMG S&I N/A 03/19/2022 CORONARY ANGIOGRAPHY; W RHC performed by Dwayne Rachel MD at [facility] CATH LABS ??? PRO CABG, ARTERIAL, SINGLE N/A 03/30/2022 @CABG, USING ARTERIAL GRAFT;SINGLE ARTERIAL GRAFT (WRVU 33.75) performed by Abdulkadir Raya MDat [facility] MAIN OR ??? PRO CABG, ARTERY-VEIN, SINGLE N/A 03/30/2022 @CABG, VENOUS & ARTERIAL GRAFT;SINGLE VEIN GRAFT (WRVU 3.61) performed by Abdulkadir Raya MD at [facility] MAIN OR ??? PRO ENDOSCOPY W/VIDEO-ASST VEIN HARVEST, CABG Left 03/30/2022 ENDOSCOPIC HARVEST VEIN(S) FOR CABG (WRVU 0.31) performed by Abdulkadir Raya MD at [facility] MAIN OR ??? PRO REPLACEMENT PROSTHETIC AORTIC VALVE OPEN W CARDIOPULMONARY BYPASS HOMOGRF/STENT N/A 03/30/2022 @REPLACE AORTIC VALVE, OPEN, W\CPB, W\PROSTHETIC VALVE (WRVU 41.32) performed by Abdulkadir Raya MD at [facility] MAIN OR ??? PRO UNLISTED CARDIAC SURG PROCEDURE N/A 03/30/2022 REPAIR, PATCH, AORTIC ROOT (WRVU 5.94) performed by Abdulkadir Raya MD at [facility] MAIN OR ??? WRIST SURGERY Bilateral Prior To [...] Marcelle Albarran at the request of Harshal oGdfrey for evaluation of ?? Marcelle Albarran is [...] Patch, CABGx2 Marcelle Albarran was admitted to [facility] on 03/30/2022 via the Same Day [...] had hyperkalemia with peak K of 6.0. [place] was placed and confirmed low cardiac output [...] NTND Ext: WWP, 1-2+ LE edema Incisions: JACKLYN CDI Important Studies and Lab Data: Lab [...] your chest incision. Your surgeon, Dr. Abdulkadir Raay and/or the Cardiac Surgery Physician Mail Reader Team may be reached at . Antibiotic prophylaxis: You will need to take antibiotics prior to many invasive tests and treatments, such as dental cleaning, which should be done every 6 months. Your primary care physician or your dentist can prescribe this medication. Please refer to the card with the [employer] Gu idelines for more information. You have been provided with a copy of this card. Please refer to the [employer] Guidelines for more information. Good [...] Dr. Abdulkadir Raya. You may use a [place] Track or treadmill but avoid any pulling [...] friends, go to a movie, go to restorationism, etc. Heavy activities: No hunting, skiing, jogging, snow shoveling, snowmobiling, lawn mowing, swimming, golf or tennis until after your return appointment with the surgeon. Do not ride motorcycles, [employer] tractors or horses. Avoid the use of [...] should resume a low fat, low cholesterol, [employer] Diet/Diabetic diet. Driving: No driving [...] while being managed by your PCP and/or [employer]. For future medication refills, please refer to your PCP and/or [employer] after your discharge from our service. Thank you REMOVE CHEST TUBE SUTURES ON OR AFTER 04/09/22 Home oxygen therapy: N/A Follow up appointments: ??? You should follow up with your PCP, Harshal Godfrey MD, in 1-2 weeks. ??? You have an appointment with your [employer], Ofelia Rubalcava MD, April 29 at 10:20am. ??? You have an appointment with your Cardiac Surgeon, Dr. Abdulkadir Raya, May 08 at 3:00pm with a chest x-ray, EKG, and Echo before your appointment. ??? Patient to follow up with Pulmonology, their office to arrange. Cardiac Rehabilitation: Marcelle Albarran was seen today regarding participation in the outpatient Phase 2 Cardiac Rehabilitation at [facility]. The patient agrees to a referral to this program. The referral will be sent at discharge and the patient should be contacted by the Program within 1- 2 weeks from discharge. Future Appointments and Orders Future Appointments and Orders Future Appointments Provider Department Dept Phone 04/29/2022 10:20 AM Ofelia Rubalcava MD Cardiology at [place] Arrive at: [facility] [address] [phone] 05/08/2022 12:30 PM [facility] DX ROOM 1 XRay at [facility] Arrive at: [facility] [phone] Please go to [facility] ([place] Location). 05/08/2022 1:30 PM ECHO REGULAR Non-Invasive Cardiology Lab [facility] Arrive at: [facility] [phone] 05/08/2022 3:00 PM Abdulkadir Raya MD Cardiac Surgery at [facility] Arrive at: [facility] [phone] Future Orders Complete By Expires Referral to Cardiac Rehab [XVI033 Custom] As directed Process Instructions: If no progress note charted, please enter Clinical details in comments. Scheduling Instructions: Questions: My question or request is: s/p AVR/CABG- cardiac rehab at [facility] Referral to Home Health [REF34 Custom] As directed Process Instructions: If no progress note charted, please enter Clinical details in comments. Scheduling Instructions: Comments: Please evaluate Marcelle Albarran for admission to Home Health. [address] [facility] [address] (home) Date of : 1950 Outpatient Person [...] HOSPICE SERVICES) PATIENT'S LOCATION: Marcelle Albarran [address] [facility] [address] (home) Telephone Information: Corporate Specialist's Name: self In discussion with the attending physician, it is certified that this patient is under their care and that they, or a Nurse Practitioner, or Physician Mail Reader who is working directly with them, had [...] need for servicesas follows: HOME HEALTH AGENCY: [facility] [employer]. PHONE: [phone] FAX: [phone] RN orders: Cardiopulmonary assessment, incisional assessment, assess [...] issues please call the Cardiology Office at [phone] FOR MEDICARE ONLY: (please delete this section [...] Instructions: Scheduling Instructions: Comments: Marcelle Albarran [address] [facility] [address] (home) Telephone Information: Diagnosis: deconditioning with Unsteady gait Significant weakness, ataxia or gait abnormality Patient's: Hgt: Ht Readings from Last 1 Encounters: 03/30/22 : 147.3 cm (4' 9.99) ? Wgt: Wt Readings from Last 1 Encounters: 04/08/22 : 105.1 kg (231 lb 11.3 oz) VENDOR: [facility] Located @ [place], [place] Ordering: Front wheel walker Deliver to pt's hospital room #: CV30A Questions: Vendor Name/Contact information: [facility] @ [place], [place] Arrangements for VNA/home care: As above. VN RN OR PCP TO PLEASE REMOVE CHEST TUBE SUTURES ON OR AFTER 04/09/22 Signed: MAGDIEL PEARSON [facility] Section of Cardiac Surgery [facility] [address] FAX [phone] Date: 04/08/2022 CC: MD Elver Lo Alexander, MD [facility] [place] [address] documented in this encounter Discharge Instructions Patient [...] Abdulkadir Raya and/or the Cardiac Surgery Physician Mail Reader Team may be reached at . Antibiotic prophylaxis: You will need to take antibiotics prior to many invasive tests and treatments, such as dental cleaning, which should be done every 6 months. Your primary care physician or your dentist can prescribe this medication. Please refer to the card with the [employer] Gu idelines for more information. You have been provided with a copy of this card. Please refer to the [employer] Guidelines for more information. Good [...] Dr. Abdulkadir Raya. You may use a [place] Track or treadmill but avoid any pulling [...] friends, go to a movie, go to restorationism, etc. Heavy activities: No hunting, skiing, jogging, snow shoveling, snowmobiling, lawn mowing, swimming, golf or tennis until after your return appointment with the surgeon. Do not ride motorcycles, [employer]'s tractors or horses. Avoid the use of [...] should resume a low fat, low cholesterol, [employer] Heart [employer] Diet/Diabetic diet. Driving: No driving [...] while being managed by your PCP and/or [employer]. For future medication refills, please refer to your PCP and/or [employer] after your discharge from our service. Thank you REMOVE CHEST TUBE SUTURES ON OR AFTER 04/09/22 Home oxygen therapy: N/A Follow up appointments: You should follow up with your PCP, Harshal Godfrey MD, in 1-2 weeks. You have an appointment with your [employer], Ofelia Rubalcava MD, April 29 at 10:20am. [...] referrals are placed. CM Provided patient with [facility] Star Quality Rating for Home care hand out. Patient requests referral to : [place] [address] Billing Inquiries: Expected date of discharge: 04/08 Referral routed to the Manager Relationship for matching with agency/vendor and to provide [...] NTND Ext: WWP, 1-2+ LE edema Incisions: CAMPGROUND CARETAKER CDI T/L/D/W: PIV Assessment/Plan: 72 y.o. female [...] 0600 and on the weekends please page [phone]. Russell Hylton MD - 04/08/2022 8:33 AM [...] home. 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 Pt does not [...] LRAD and supervision. RADHA GARCIA, PT Pager: [phone] Physical Therapy Inpatient Rehabilitation Department Time IN / OUT: 4245-3736 Total time: 28 mins (tef, armando) Mike [...] moment. Active Orders Diet Carb Control diet 60// CHO counting level 2 Frequency: Effective Now [...] consulted in the interim. REDD Alexis EXT 5- 8800 Rico Zamora, MAGDIEL - 04/07/2022 8:23 AM EDT Cardiac Surgery [...] 1+ LE edema Incisions: JACKLYN CDI T/L/D/W: Lauri, PIV Assessment/Plan: 72 y.o. female 8 Days [...] 0600 and on the weekends please page [phone]. Mar Paul MD - 04/06/2022 3:08 PM [...] 1+ LE edema Incisions: JACKLYN CDI T/L/D/W: RIJ, Carreon, PIV Assessment/Plan: 72 y.o. female 7 Days Post-Op [...] 0600 and on the weekends please page [phone]. Olena Loya MD - 04/05/2022 11:06 AM [...] SpO2: -- Drips: Dobutamine 2 Amio 1 / 0701 - 04/05 0700 In: 1433.1 [P.O.:880; [...] sounds Ext: WWP, 1+ LE edema Incisions: CAMPGROUND CARETAKER CDI T/L/D/W: RIJ/PAC, Lauri [place], right pigtail chest tube, PIV Assessment/Plan: 72 y.o. female 6 Days Post-Op AVR, asc patch repair, CABGx2. Acute low output cardiac failure. Cardiorenal syndrome. Hyperkalemia post-op treated. Post-op VAISHNAVI. Left pneumothorax resolved with pigtail. Right pleural effusion, s/p drainage. Post-op atrial fibrillation. Acute post-op pulmonary insufficiency secondary to splinting, atelectasis, and effusions. Stop Dobutamine. Check CI ~1200 and if OK will remove Naples Keep Carreon to monitor urine output since [...] 0600 and on the weekends please page [phone]. Olena Loya MD - 04/04/2022 10:36 AM [...] 0600 and on the weekends please page [phone]. Olena Loya MD - 04/03/2022 3:47 PM [...] or associate providers. Radha Garcia, PT - 04/03/2022 3:21 PM EDT Physical [...] home. 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 Pt does not [...] LRAD and supervision. RADHA GARCIA, PT Pager: [phone] Physical Therapy Inpatient Rehabilitation Department Time IN / OUT: 8475-3563 Total time: 28 mins (tef, armando) Vesna Rosa APRN - 04/03/2022 10:43 AM EDT Cardiac [...] trace edema Incisions: CDI intact Tubes/Lines/Drains: GALINA, RIOlayinka, lauri del rio Assessment/Plan: 72 y.o. female 4 Days Post-Op [...] 0600 and on the weekends please page [phone]. Olena Loya MD - 04/02/2022 3:13 PM [...] or associate providers. Radha Garcia PT - 04/02/2022 2:30 PM EDT Physical [...] HYSTERECTOMY, TOTAL ABDOMINAL ? ? PRG CATH PLMT CORONARY ART W/INJ FOR ANGIO W/R HEART CATH IMG S&I N/A 03/19/2022 CORONARY ANGIOGRAPHY; W RHC performed by Dwayne Rachel MD at [facility] CATH LABS ??? PRO CABG, ARTERIAL, SINGLE N/A 03/30/2022 @CABG, USING ARTERIAL GRAFT;SINGLE ARTERIAL GRAFT (WRVU 33.75) performed by Abdulkadir Raya MDat [facility] OR ??? PRO CABG, ARTERY-VEIN, SINGLE N/A 03/30/2022 @CABG, VENOUS & ARTERIAL GRAFT;SINGLE VEIN GRAFT (WRVU 3.61) performed by Abdulkadir Raya MD at [facility] OR ??? PRO ENDOSCOPY W/VIDEO-ASST VEIN HARVEST, CABG Left 03/30/2022 ENDOSCOPIC HARVEST VEIN(S) FOR CABG (WRVU 0.31) performed by Abdulkadir Raya MD at [facility] OR ??? PRO REPLACEMENT PROSTHETIC AORTIC VALVE OPEN W CARDIOPULMONARY BYPASS HOMOGRF/STENT N/A 03/30/2022 @REPLACE AORTIC VALVE, OPEN, W\CPB, W\PROSTHETIC VALVE (WRVU 41.32) performed by Abdulkadir Raya MD at [facility] MAIN OR ??? PRO UNLISTED CARDIAC SURG PROCEDURE N/A 03/30/2022 REPAIR, PATCH, AORTIC ROOT (WRVU 5.94) performed by Abdulkadir Raya MD at [facility] MAIN OR ??? WRIST SURGERY Bilateral Social History: Pt lives with her dtr. Another dtr lives next door. Home is 1 living with 4-5 steps to enter home. 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 Pt does not [...] in this evaluation. RADHA GARCIA, PT Pager: [phone] Physical Therapy Inpatient Rehabilitation Department Time IN / OUT: 5213-8334 Total time: 35 mins ( eval) Aaron [...] Incisions: CDI intact Tubes/Lines/Drains: PIV, RIJ, nav, pw, carreon Assessment/Plan: 72 y.o. female 3 Days Post-Op [...] 0600 and on the weekends please page [phone]. Vesna Trent, YARD DRIVER - 04/01/2022 8:15 AM EDT Cardiac Surgery [...] 0600 and on the weekends please page [phone]. Vesna Trent APRN - 03/31/2022 10:36 AM EDT Cardiac Surgery [...] 0600 and on the weekends please page [phone]. Olena Loya MD - 03/31/2022 9:35 AM [...] other physicians or associate providers. Lacey Tran, [facility] - 03/30/2022 9:32 PM EDT NO PROTOCOL [...] and ABGs improved afterward. 0400- 7.31/49/105/24 Lacey Tran RCP Olena Loya MD - 03/30/2022 8:16 PM [...] with other physicians or associate providers. Vielka Richardson, [facility] - 03/30/2022 4:34 PM EDT CTICU Protocol: [...] ABG keisha re-drawn 30 mins after changes. 1811-ABG 7.19/65/206/24.1. Tidal volume increased to 390 (9.5 [...] Pneumothorax Post-operative Diagnosis: Left Pneumothorax Surgeon: OLENA OLYA MD Procedure Details: Procedure performed CV. Maximum sterile barrier technique was utilized. After [...] MD - 04/02/2022 2:35 PM EDTAssociated Order(s): INSERT PULMONARY ARTERY CATHETER Pulmonary Arterial Line Placement Procedure Note Indications: Catheter placed for diagnosis and treatment of instability, surveillance and monitoring, cardiac function and renal function. This insertion was not to replace a malfunctioning catheter. This insertion was not due to a suspected line-associated infection. Location of Procedure: [facility] Risks and Benefits: The risks and [...] to the planned procedure. Hand Hygiene: The filler block inserter remover did perform hand hygiene prior to line insertion. Procedure Technique: Skin was prepped with chlorhexidine. The introducer that was existing was sterilized and a full drape was placed. The swan was floated innormal fashion without inicident. Floating the Naples-Odalys Catheter Attempts: as above Comments: sterile technique Sterile Dressing: CHG Impregnated Tegaderm Cardiac Output: 1.5 L/min Complications: No complications. Post Procedure: Procedure well tolerated. Procedure Comments: documented in this encounter Miscellaneous Notes Brief Op Note - Abdulkadir Raya MD - 04/08/2022 12:55 PM EDT Brief Operative Note Patient Name: Marcelle Albarran : [id number] MR#: [id number] Case Date: 03/30/2022 Surgeon: Surgeon(s) and Role: * Abdulkadir Raya MD - Primary * Konstantin Amado PA - Physician Mail Reader * Danuta Diaz PA - Physician Mail Reader * Nathaniel Larson MD - Assisting Attending [...] monitoring Agency Referrals: [facility] [address] [place] [address] [facility] Located @ [facility]: family or friend will provide Barriers [...] of Discharge: 04/08/2022 Russell Santos RN Case Reed Maker of Care Management Pager: [phone] Consult Note - Vielka Guerrero RN - 04/08/2022 10:39 AM EDT [facility] CARDIAC REHABILITATION Marcelle Albarran was seen today regarding participation in the outpatient Phase 2 Cardiac Rehabilitation at [facility]. The patient agrees to a referral to this program. The referral will be sent at discharge and the patient should be contacted by the Program within 1- 2 weeks from discharge. Initial Assessments - Serene Pandya RN - 03/31/2022 3:28 PM EDT Office of Care Management Initial Assessment SERENE C HAUSLER, RN reviewed record and discussed patient with [...] Current DME: none Home Address listed as: [address] [id number] Social & Family Supports: All names listed below confirmed with patient as current and correct Extended Emergency Contact Information Primary Emergency Contact: Ailyn Lara Address: [address] [id number] [place] Relation: Child Current Care Provided by: [...] away and notthrough mail order.) Preferred Pharmacy: [id number] AT [facility] & [address] [phone] [facility] ([place]) - [address] [address] [place] Status: Patient is a : No Primary Care Provider: Harshal Godfrey MD [phone] Patient/Caregiver Goals of Treatment: to be able to return home- took 4 weeks off from work. Potential Needs for Transition of Care: home health care Agency Referrals: I have met with the patient to: ?? discuss discharge planning needs. ?? provide a list of Home Health Agencies / Durable Medical Equipment vendors which serve their preferred geographic area. ?? provided patient with [facility] Star Quality Rating handout. They have [facility] [address] [place] [address] Note routed to a Manager Relationship who will communicate referrals to facilities and [...] with transition of care planning. Covering pager #[phone] for today. Op Note - Abdulkadir Raya MD - 03/30/2022 8:35 AM EDT [facility] SECTION OF CARDIAC SURGERY ?? OPERATIVE REPORT Case Date:??03/30/22 ?? PATIENT NAME:??Marcelle Albarran?? :??1950?? MR#: [id number] ?? REFERRING PHYSICIAN:??Dwayne Rachel MD ?? PRE-OPERATIVE DIAGNOSIS: Severe aortic stenosis??and coronary artery disease? POST-OPERATIVE DIAGNOSIS:??Same? PROCEDURE: ?? 1. Aortic valve replacement with??19mm Sherwood??inspiris??bioprosthetic valve 2. Coronary artery bypass grafting x??2??(PLUNKETT to??LAD, RSVG to??OM1)?? SURGEON: * Abdulkadir Raya MD - Primary * Konstantin Amado PA - Physician Mail Reader * Danuta Diaz PA - Physician Mail Reader * Nathaniel Larson MD - Assisting Attending [...] ascending aorta and this was cannulated with a??18??uruguayan EOPA aortic cannula. Venous cannulation was accomplished using arit atrium location with a two- staged cannula. [...] Dameon Hernandez MD [facility] [place] [address] [address] [place]ATOLOGY [place] [id number] 08/21/2022 TH Visit (TeleHealth) Hematology and Reddy Hernandez Oncology [facility] [address] [place], [place] [address] (Wo rk) 08/21/2022 Infusion Hematology and Oncology 08/28/2022 Office Visit Hematology and Reddy Hernandez Oncology [facility] [address] [place], [place] 0[address] (Wo rk) 08/28/2022 Infusion Hematology and Oncology 09/11/2022 Office Visit Hematology and Reddy Hernandez MD [facility] [place] [address] [address] [place], [place] [phone] 09/11/2022 Infusion Hematology and Oncology 09/18/2022 Office Visit Hematology and Nikky Pak, Oncology [address] H[place]ATOLOGY [place], [place] [id number] (Wo rk) 09/18/2022 Infusion Hematology and Oncology 03/10/2023 Office Visit Cardiology Ofelia Rubalcava MD [facility] [address] [place] 0[address] (Wo rk) Scheduled Referrals Name Type [...] Signature POC Glucose 98 65 - 199 [facility] Comment: Supplemental ranges: <140 mg/dL before meals <180 mg/dL all other times of the day Specimen Anatomical Collection Method Collection Time Receive d Time (Source) Location / / Volume Laterality Blood 04/08/2022 11:58 04/08/2022 AM EDT 11:58 AM EDT Abdulkadir Raya MD POINT OF CARE TEST ORDERABLE S Performing Organization Address City/State/ZIP Code Phon e Number [address] POCT Glucose (04/08/2022 7:40 AM EDT) athologist Signature POC Glucose 186 65 - 199 [facility]dL [facility] Comment: Supplemental ranges: <140 mg/dL before meals <180 mg/dL all other times of the day Specimen Anatomical Collection Method Collection Time Receive d Time (Source) Location / / Volume Laterality Blood 04/08/2022 7:40 AM 7:40 EDT AM EDT Abdulkadir Raya MD POINT OF CARE TEST ORDERABLE S Performing Organization Address City/State/ZIP Code Phon e Number [address] Potassium (04/08/2022 2:01 AM EDT) athologist Signature Potassium 3.9 3.5 - 5.0 [facility] [place] mmol/L [facility] Comment: Please note: ??Patients with [...] Organization Address City/State/ZIP Code Phon e Number [address] POCT Glucose (04/07/2022 7:54 PM EDT) athologist Signature POC Glucose 126 65 - 199 [facility] [place] mg/dL [facility] Comment: Supplemental ranges: <140 mg/dL before meals <180 mg/dL all other times of the day Specimen Anatomical Collection Method Collection Time Receive d Time (Source) Location / / Volume Laterality Blood 04/07/2022 7:54 PM 2 7:54 EDT PM EDT Abdulkadir Raya MD POINT OF CARE TEST ORDERABLE S Performing Organization Address City/State/[place] [address] POCT Glucose (04/07/2022 4:29 PM EDT) athologist Signature POC Glucose 183 65 - 199 [place] mg/dL [facility] Comment: Supplemental ranges: <140 mg/dL before meals <180 mg/dL all other times of the day Specimen Anatomical Collection Method Collection Time Receive d Time (Source) Location / / Volume Laterality Blood 04/07/2022 4:29 PM 2 4:29 EDT PM EDT Abdulkadir Raya MD POINT OF CARE TEST ORDERABLE S Performing Organization Address City/State/[place] [address] POCT Glucose (04/07/2022 12:32 PM EDT) P athologist Signature POC Glucose 145 65 - 199 [place] mg/dL [facility] Comment: Supplemental ranges: <140 mg/dL before meals <180 mg/dL all other times of the day Specimen Anatomical Collection Method Collection Time Receive d Time (Source) Location / / Volume Laterality Blood 04/07/2022 12:32 04/07/2022 PM EDT 12:32 PM EDT Abdulkadir Raya MD POINT OF CARE TEST ORDERABLE S Performing Organization Address City/State/ZIP Code Phon e Number [facility] [address] XR Chest PA & [...] who have questions please contact the health post anesthesia care unit nurse that requested your imaging first. ? Narrative 04/07/2022 7:52 AM EDT EXAMINATION: XR [...] removal of the right in ternal jugular [place]-Odalys catheter. There is dense calcification of the [...] original. EXAMINATION: XR CHEST PA AND LATERAL ([place]) CLINICAL HISTORY: 72-year-old female sta tus post [...] removal of the right in ternal jugular [place]-Odalys catheter. There is dense calcification of the [...] ho have questions please contact the health post anesthesia care unit nurse that requested your imaging first. Electronically signed by: Chuck Duckworth DO, [facility] ([phone]), at 04/07/2022 7:52 AM Abdulkadir Raya MD IMG DX ORDERABLES (ABNORMAL) Basic Metabolic Panel (non-fasting) (04/07/2022 2:21 AM EDT) P athologist Signature Glucose Lvl 120 65 - 199 [facility] mg/dL [facility] Comment: Diabetes: >=200 mg/dL plus symp toms BUN 29 (H) 8 - 18 mg/dL [facility] Creatinine 0.76 0.70 - 1.20 mg/dL [facility] Sodium 140 135 - 145 mmol/L [facility] Potassium 4.3 3.5 - 5.0 mmol/L [facility] Comment: Please note: ??Patients with WBC >100,00 0 may have falsely elevated Potassium levels. ??For accurate Potassium quantif ication in these patients send serum separator tube (gold top) for subsequent determinations. ??Contact the Clinical Chemistry Laboratory if there are any qu estions. Chloride 102 98 - 107 mmol/L [facility] CO2 31 22 - 31 mmol/L [facility] Anion Gap 7 5 - 15 mmol/L [facility] Calcium 8.2 (L) 8.5 - 10.5 mg/dL [facility] Estimated GFR 84 >=60 mL/min/1.73 m?? [facility] Comment: This patient's estimated GFR [...] / Volume Laterality Blood 04/07/2022 2:21 AM 2 2:30 EDT AM EDT Resulting Agency Comment Spec In Lab Vesna Trent APRN CHEMISTRY ORDERABLES Performing Organization Address City/State/[place] [address] POCT Glucose (04/07/2022 12:17 AM EDT) P athologist Signature POC Glucose 122 65 - 199 [facility] mg/dL [facility] Comment: Supplemental ranges: <140 mg/dL before meals <180 mg/dL all other times of the day Specimen Anatomical Collection Method Collection Time Receive d Time (Source) Location / / Volume Laterality Blood 04/07/2022 12:17 04/07/2022 AM EDT 12:17 AM EDT Abdulkadir Raya MD POINT OF CARE TEST ORDERABLE S Performing Organization Address City/State/ZIP Code Phon e Number [address] POCT Glucose (04/06/2022 5:11 PM EDT) athologist Signature POC Glucose 126 65 - 199 [place] mg/dL [facility] Comment: Supplemental ranges: <140 mg/dL before meals <180 mg/dL all other times of the day Specimen Anatomical Collection Method Collection Time Receive d Time (Source) Location / / Volume Laterality Blood 04/06/2022 5:11 PM 5:11 EDT PM EDT Abdulkadir Raya MD POINT OF CARE TEST ORDERABLE S Performing Organization Address City/State/[place] [address] POCT Glucose (04/06/2022 11:33 AM EDT) athologist Signature POC Glucose 192 65 - 199 [place] mg/dL [facility] Comment: Supplemental ranges: <140 mg/dL before meals <180 mg/dL all other times of the day Specimen Anatomical Collection Method Collection Time Receive d Time (Source) Location / / Volume Laterality Blood 04/06/2022 11:33 04/06/2022 AM EDT 11:33 AM EDT Abdulkadir Raya MD POINT OF CARE TEST ORDERABLE S Performing Organization Address City/State/[place] [address] Potassium (04/06/2022 10:01 AM EDT) athologist Signature Potassium 4.2 3.5 - 5.0 [facility]L [facility] Comment: Please note: ??Patients with [...] Organization Address City/State/ZIP Code Phon e Number [address] POCT Glucose (04/06/2022 7:50 AM EDT) athologist Signature POC Glucose 118 65 - 199 [facility] mg/dL [facility] Comment: Supplemental ranges: <140 mg/dL before meals <180 mg/dL all other times of the day Specimen Anatomical Collection Method Collection Time Receive d Time (Source) Location / / Volume Laterality Blood 04/06/2022 7:50 AM 7:50 EDT AM EDT Abdulkadir Raya MD POINT OF CARE TEST ORDERABLE S Performing Organization Address City/State/[place] [address] (ABNORMAL) Basic Metabolic Panel (non-fasting) (04/06/2022 2:33 AM EDT) P athologist Signature Glucose Lvl 128 65 - 199 [facility] Comment: Diabetes: >=200 mg/dL plus symp toms BUN 30 (H) 8 - 18 mg/dL [facility] Creatinine 0.80 0.70 - 1.20 mg/dL [facility] Sodium 142 135 - 145 mmol/L [facility] Potassium 3.8 3.5 - 5.0 mmol/L [facility] Comment: Please note: ??Patients with WBC >100,00 0 may have falsely elevated Potassium levels. ??For accurate Potassium quantif ication in these patients send serum separator tube (gold top) for subsequent determinations. ??Contact the Clinical Chemistry Laboratory if there are any qu estions. Chloride 103 98 - 107 mmol/L [facility] CO2 31 22 - 31 mmol/L [facility] Anion Gap 8 5 - 15 mmol/L [facility] Calcium 7.7 (L) 8.5 - 10.5 mg/dL [facility] Estimated GFR 79 >=60 mL/min/1.73 m?? [facility] Comment: This patient's estimated GFR [...] / Volume Laterality Blood 04/06/2022 2:33 AM 2:37 EDT AM EDT Resulting Agency Comment Spec In Lab Vesna Trent APRN CHEMISTRY ORDERABLES Performing Organization Address City/State/ZIP Code Phon e Number [address] POCT Glucose (04/05/2022 10:33 PM EDT) athologist Signature POC Glucose 121 65 - 199 [facility] mg/dL [facility] Comment: Supplemental ranges: <140 mg/dL before meals <180 mg/dL all other times of the day Specimen Anatomical Collection Method Collection Time Receive d Time (Source) Location / / Volume Laterality Blood 04/05/2022 10:33 04/05/2022 PM EDT 10:33 PM EDT Abdulkadir Raya MD POINT OF CARE TEST ORDERABLE S Performing Organization Address City/State/ZIP Code Phon e Number [address] POCT Glucose (04/05/2022 4:41 PM EDT) athologist Signature POC Glucose 143 65 - 199 [facility] mg[facility]dL [facility] Comment: Supplemental ranges: <140 mg/dL before meals <180 mg/dL all other times of the day Specimen Anatomical Collection Method Collection Time Receive d Time (Source) Location / / Volume Laterality Blood 04/05/2022 4:41 PM 4:41 EDT PM EDT Abdulkadir Raya MD POINT OF CARE TEST ORDERABLE S Performing Organization Address City/State/ZIP Code Phon e Number [address] POCT Glucose (04/05/2022 11:19 AM EDT) P athologist Signature POC Glucose 169 65 - 199 [facility] mg/dL [facility] Comment: Supplemental ranges: <140 mg/dL before meals <180 mg/dL all other times of the day Specimen Anatomical Collection Method Collection Time Receive d Time (Source) Location / / Volume Laterality Blood 04/05/2022 11:19 04/05/2022 AM EDT 11:19 AM EDT Abdulkadir Raya MD POINT OF CARE TEST ORDERABLE S Performing Organization Address City/State/[place] [address] XR Chest One View [...] who have questions please contact the health post anesthesia care unit nurse that requested your imaging first. ? Electronically signed by: Emilee Marshall MD , [facility] ([phone]), at 04/05/2022 11:26 AM Narrative 04/05/2022 11:26 AM EDT EXAMINATION: XR CHEST ONE VIEW CLINICAL HISTORY: s/p right pigtail ches t tube removal TECHNIQUE: 1 view of the chest COMPARISON: April 03, 2022 FINDINGS: Interval removal of bilateral pleural pi gtail catheters. Right internal jugular access retains do uble curve morphology at the neck which may reflect change in the anteroposterio r direction. The tip of the Naples-Odalys catheter is in the right main pulmonary [...] anteroposterio r direction. The tip of the [place]-Odalys catheter is in the right main pulmonary [...] ho have questions please contact the health post anesthesia care unit nurse that requested your imaging first. Electronically signed by: Emilee Marshall MD , [facility] ([phone]), at 04/05/2022 11:26 AM Abdulkadir Raya MD IMG DX ORDERABLES POCT Glucose (04/05/2022 7:45 AM EDT) P athologist Signature POC Glucose 165 65 - 199 [facility] mg/dL [facility] Comment: Supplemental ranges: <140 mg/dL before meals <180 mg/dL all other times of the day Specimen Anatomical Collection Method Collection Time Receive d Time (Source) Location / / Volume Laterality Blood 04/05/2022 7:45 AM 7:45 EDT AM EDT Abdulkadir Raya MD POINT OF CARE TEST ORDERABLE S Performing Organization Address City/State/[place] [address] (ABNORMAL) Basic Metabolic Panel (non-fasting) (04/05/2022 2:10 AM EDT) athologist Signature Glucose Lvl 137 65 - 199 [facility] mg/dL [facility] Comment: Diabetes: >=200 mg/dL plus symp toms BUN 35 (H) 8 - 18 mg/dL [facility] Creatinine 0.71 0.70 - 1.20 mg/dL [facility] Sodium 138 135 - 145 mmol/L [facility] Potassium 4.0 3.5 - 5.0 mmol/L [facility] Comment: Please note: ??Patients with WBC >100,00 0 may have falsely elevated Potassium levels. ??For accurate Potassium quantif ication in these patients send serum separator tube (gold top) for subsequent determinations. ??Contact the Clinical Chemistry Laboratory if there are any qu estions. Chloride 102 98 - 107 mmol/L [facility] CO2 28 22 - 31 mmol/L [facility] Anion Gap 8 5 - 15 mmol/L [facility] Calcium 7.6 (L) 8.5 - 10.5 mg/dL [facility] Estimated GFR 91 >=60 mL/min/1.73 m?? [facility] Comment: This patient's estimated GFR [...] / Volume Laterality Blood 04/05/2022 2:10 AM 2 2:15 EDT AM EDT Resulting Agency Comment Spec In Lab Vesna Trent APRN CHEMISTRY ORDERABLES Performing Organization Address City/State/ZIP Code Phon e Number [address] POCT Glucose (04/04/2022 4:45 PM EDT) athologist Signature POC Glucose 161 65 - 199 [facility] mg/dL [facility] Comment: Supplemental ranges: <140 mg/dL before meals <180 mg/dL all other times of the day Specimen Anatomical Collection Method Collection Time Receive d Time (Source) Location / / Volume Laterality Blood 04/04/2022 4:45 PM 4:45 EDT PM EDT Abdulkadir Raya MD POINT OF CARE TEST ORDERABLE S Performing Organization Address City/State/ZIP Code Phon e Number [address] POCT Glucose (04/04/2022 12:36 PM EDT) athologist Signature POC Glucose 179 65 - 199 [place] mg/dL [facility] Comment: Supplemental ranges: <140 mg/dL before meals <180 mg/dL all other times of the day Specimen Anatomical Collection Method Collection Time Receive d Time (Source) Location / / Volume Laterality Blood 04/04/2022 12:36 04/04/2022 PM EDT 12:36 PM EDT Abdulkadir Raya MD POINT OF CARE TEST ORDERABLE S Performing Organization Address City/State/[place] [address] (ABNORMAL) Basic Metabolic Panel (non-fasting) (04/04/2022 8:00 AM EDT) P athologist Signature Glucose Lvl 148 65 - 199 [facility] mg/dL [facility] Comment: Diabetes: >=200 mg/dL plus symp toms BUN 40 (H) 8 - 18 mg/dL [facility] Creatinine 0.78 0.70 - 1.20 mg/dL [facility] Sodium 139 135 - 145 mmol/L [facility] Potassium 4.6 3.5 - 5.0 mmol/L [facility] Comment: Please note: ??Patients with WBC >100,00 0 may have falsely elevated Potassium levels. ??For accurate Potassium quantif ication in these patients send serum separator tube (gold top) for subsequent determinations. ??Contact the Clinical Chemistry Laboratory if there are any qu estions. Chloride 104 98 - 107 mmol/L [facility] CO2 27 22 - 31 mmol/L [facility] Anion Gap 8 5 - 15 mmol/L [facility] Calcium 7.8 (L) 8.5 - 10.5 mg/dL [facility] Estimated GFR 81 >=60 mL/min/1.73 m?? [facility] Comment: This patient's estimated GFR [...] / Volume Laterality Blood 04/04/2022 8:00 AM 8:13 EDT AM EDT Resulting Agency Comment Spec In Lab Olena Loya MD CHEMISTRY ORDERABLES Performing Organization Address City/State/[place] [address] POCT Glucose (04/04/2022 7:56 AM EDT) athologist Signature POC Glucose 146 65 - 199 [place] mg/dL [facility] Comment: Supplemental ranges: <140 mg/dL before meals <180 mg/dL all other times of the day Specimen Anatomical Collection Method Collection Time Receive d Time (Source) Location / / Volume Laterality Blood 04/04/2022 7:56 AM 2 7:56 EDT AM EDT Abdulkadir Raya MD POINT OF CARE TEST ORDERABLE S Performing Organization Address City/[facility]/[place] [address] (ABNORMAL) POCT Glucose (04/04/2022 7:54 AM EDT) athologist Signature POC Glucose 52 65 - 199 [place] (Critical) mg/dL [facility] Comment: Supplemental ranges: <140 mg/dL before meals <180 mg/dL all other times of the day Specimen Anatomical Collection Method Collection Time Receive d Time (Source) Location / / Volume Laterality Blood 04/04/2022 7:54 AM 2 7:54 EDT AM EDT Abdulkadir Raya MD POINT OF CARE TEST ORDERABLE S Performing Organization Address City/State/[place] [address] (ABNORMAL) Basic Metabolic Panel (non-fasting) (04/04/2022 12:45 AM EDT) athologist Signature Glucose Lvl 119 65 - 199 [place] mg/dL [facility] Comment: Diabetes: >=200 mg/dL plus symp toms BUN 46 (H) 8 - 18 mg/dL [facility] Creatinine 0.92 0.70 - 1.20 mg/dL [facility] Sodium 139 135 - 145 mmol/L [facility] Potassium 4.3 3.5 - 5.0 mmol/L [facility] Comment: Please note: ??Patients with WBC >100,00 0 may have falsely elevated Potassium levels. ??For accurate Potassium quantif ication in these patients send serum separator tube (gold top) for subsequent determinations. ??Contact the Clinical Chemistry Laboratory if there are any qu estions. Chloride 104 98 - 107 mmol/L [facility] CO2 27 22 - 31 mmol/L [facility] Anion Gap 8 5 - 15 mmol/L [facility] Calcium 7.6 (L) 8.5 - 10.5 mg/dL [facility] Estimated GFR 67 >=60 mL/min/1.73 m?? [facility] Comment: This patient's estimated GFR [...] Resulting Agency Comment Spec In Lab Vesna Twan BARAJAS CHEMISTRY ORDERABLES Performing Organization Address City/State/[place] [address] (ABNORMAL) Basic Metabolic Panel (non-fasting) (04/03/2022 4:16 PM EDT) P athologist Signature Glucose Lvl 159 65 - 199 [facility] mg/dL [facility] Comment: Diabetes: >=200 mg/dL plus symp toms BUN 50 (H) 8 - 18 mg/dL [facility] Creatinine 0.97 0.70 - 1.20 mg/dL [facility] Sodium 137 135 - 145 mmol/L [facility] Potassium 4.6 3.5 - 5.0 mmol/L [facility] Comment: Please note: ??Patients with WBC >100,00 0 may have falsely elevated Potassium levels. ??For accurate Potassium quantif ication in these patients send serum separator tube (gold top) for subsequent determinations. ??Contact the Clinical Chemistry Laboratory if there are any qu estions. Chloride 102 98 - 107 mmol/L [facility] CO2 26 22 - 31 mmol/L [facility] Anion Gap 9 5 - 15 mmol/L [facility] Calcium 7.8 (L) 8.5 - 10.5 mg/dL [facility] Estimated GFR 62 >=60 mL/min/1.73 m?? [facility] Comment: This patient's estimated GFR [...] Organization Address City/State/[place] [address] POCT Glucose (04/03/2022 3:55 PM EDT) athologist Signature POC Glucose 136 65 - 199 [facility] mg/dL [facility] Comment: Supplemental ranges: <140 mg/dL before meals <180 mg/dL all other times of the day Specimen Anatomical Collection Method Collection Time Receive d Time (Source) Location / / Volume Laterality Blood 04/03/2022 3:55 PM 3:55 EDT PM EDT Abdulkadir Raya MD POINT OF CARE TEST ORDERABLE S Performing Organization Address City/State/[place] [address] Chest Tube Insertion (04/03/2022 [...] who have questions please contact the health post anesthesia care unit nurse that requested your imaging first. ? Electronically signed by: Evert fritz MD, [facility] ([phone]), at 04/03/2022 2:29 PM Narrative 04/03/2022 2:29 [...] ho have questions please contact the health post anesthesia care unit nurse that requested your imaging first. Electronically signed by: Evert fritz MD, [facility] ([phone]), at 04/03/2022 2:29 PM Olena Loya MD IMG DX ORDERABLES POCT Glucose (04/03/2022 12:03 PM EDT) athologist Signature POC Glucose 178 65 - 199 [facility] mg/dL [facility] Comment: Supplemental ranges: <140 mg/dL before meals <180 mg/dL all other times of the day Specimen Anatomical Collection Method Collection Time Receive d Time (Source) Location / / Volume Laterality Blood 04/03/2022 12:03 04/03/2022 PM EDT 12:03 PM EDT Abdulkadir Raya MD POINT OF CARE TEST ORDERABLE S Performing Organization Address City/State/[place] [address] POCT Glucose (04/03/2022 8:00 AM EDT) athologist Signature POC Glucose 126 65 - 199 [facility] mg/dL [facility] Comment: Supplemental ranges: <140 mg/dL before meals <180 mg/dL all other times of the day Specimen Anatomical Collection Method Collection Time Receive d Time (Source) Location / / Volume Laterality Blood 04/03/2022 8:00 AM 8:00 EDT AM EDT Abdulkadir Raya MD POINT OF CARE TEST ORDERABLE S Performing Organization Address City/State/[place] [address] (ABNORMAL) Basic Metabolic Panel (non-fasting) (04/03/2022 8:00 AM EDT) P athologist Signature Glucose Lvl 127 65 - 199 [facility] mg/dL [facility] Comment: Diabetes: >=200 mg/dL plus symp toms BUN 51 (H) 8 - 18 mg/dL [facility] Creatinine 0.94 0.70 - 1.20 mg/dL [facility] Sodium 135 135 - 145 mmol/L [facility] Potassium 4.9 3.5 - 5.0 mmol/L [facility] Comment: Please note: ??Patients with WBC >100,00 0 may have falsely elevated Potassium levels. ??For accurate Potassium quantif ication in these patients send serum separator tube (gold top) for subsequent determinations. ??Contact the Clinical Chemistry Laboratory if there are any qu estions. Chloride 102 98 - 107 mmol/L [facility] CO2 22 22 - 31 mmol/L [facility] Anion Gap 11 5 - 15 mmol/L [facility] Calcium 7.8 (L) 8.5 - 10.5 mg/dL [facility] Estimated GFR 65 >=60 mL/min/1.73 m?? [facility] Comment: This patient's estimated GFR [...] Organization Address City/State/[place] [address] (ABNORMAL) Coox2 (04/02/2022 11:45 PM EDT) P athologist Signature pO2 Coox 32 mmHg [facility] Hgb Blood Gas 8.9 (L) 11.7 - [facility] 15.5 g/dL [facility] O2HB Coox 52.4 % [facility] COHB Coox 1.3 % [facility] Comment: Nonsmokers: 0.5-1.5% COHB Smokers: Variable, but usually less than 10% Toxic: 20-30% COHB Lethal: Greater than 60% COHB METHB Coox 0.4 <=1.5 % [facility] Source Coox Mixed Venous [facility] Specimen Anatomical Collection Method Collection Time Receive d Time (Source) Location / / Volume Laterality Blood 04/02/2022 11:45 04/02/2022 PM EDT 11:45 PM EDT Abdulkadir Raya MD CHEMISTRY ORDERABLES Performing Organization Address City/State/[place] [address] (ABNORMAL) Basic Metabolic Panel (non-fasting) (04/02/2022 11:45 PM EDT) athologist Signature Glucose Lvl 130 65 - 199 [facility] mg/dL [facility] Comment: Diabetes: >=200 mg/dL plus symp toms BUN 57 (H) 8 - 18 mg/dL [facility] Creatinine 1.11 0.70 - 1.20 mg/dL [facility] LABORATORY Sodium 136 135 - 145 mmol/L [facility] Potassium 4.8 3.5 - 5.0 mmol/L [facility] Comment: Please note: ??Patients with WBC >100,00 0 may have falsely elevated Potassium levels. ??For accurate Potassium quantif ication in these patients send serum separator tube (gold top) for subsequent determinations. ??Contact the Clinical Chemistry Laboratory if there are any qu estions. Chloride 102 98 - 107 mmol/L [facility] CO2 24 22 - 31 mmol/L [facility] Anion Gap 10 5 - 15 mmol/L [facility] Calcium 7.8 (L) 8.5 - 10.5 mg/dL [facility] Estimated GFR 53 (L) >=60 mL/min/1.73 m?? [facility] Comment: This patient's estimated GFR [...] Organization Address City/State/[place] [address] (ABNORMAL) Coox2 (04/02/2022 7:37 PM EDT) P athologist Signature pO2 Coox 27 mmHg [facility] Hgb Blood Gas 8.9 (L) 11.7 - [facility] 15.5 g/dL [facility] O2HB Coox 39.6 % [facility] COHB Coox 1.1 % [facility] Comment: Nonsmokers: 0.5-1.5% COHB Smokers: Variable, but usually less than 10% Toxic: 20-30% COHB Lethal: Greater than 60% COHB METHB Coox 0.6 <=1.5 % [facility] Source Coox Mixed Venous [facility] Specimen Anatomical Collection Method Collection Time Receive d Time (Source) Location / / Volume Laterality Blood 04/02/2022 7:37 PM 2 7:37 EDT PM EDT Abdulkadir Raya MD CHEMISTRY ORDERABLES Performing Organization Address City/[facility]/[place] [address] Potassium (04/02/2022 7:30 PM EDT) P athologist Signature Potassium 4.9 3.5 - 5.0 [facility] mmol/L [facility] Comment: Please note: ??Patients with [...] Raya MD CHEMISTRY ORDERABLES Performing Organization Address City/[facility]/ZIP Code Phon e Number [address] POCT Glucose (04/02/2022 5:51 PM EDT) athologist Signature POC Glucose 160 65 - 199 [facility] mg/dL [facility] Comment: Supplemental ranges: <140 mg/dL before meals <180 mg/dL all other times of the day Specimen Anatomical Collection Method Collection Time Receive d Time (Source) Location / / Volume Laterality Blood 04/02/2022 5:51 PM 2 5:51 EDT PM EDT Abdulkadir Raya MD POINT OF CARE TEST ORDERABLE S Performing Organization Address City/[facility]/[place] [address] Chest Tube Insertion (04/02/2022 [...] Metabolic Panel (non-fasting) (04/02/2022 4:54 PM EDT) P athologist Signature Glucose Lvl 143 65 - 199 [facility] mg/dL [facility] Comment: Diabetes: >=200 mg/dL plus symp toms BUN 59 (H) 8 - 18 mg/dL [facility] Creatinine 1.34 (H) 0.70 - 1.20 mg/dL [facility] Sodium 133 (L) 135 - 145 mmol/L [facility] Potassium 5.2 (H) 3.5 - 5.0 mmol/L [facility] Comment: Please note: ??Patients with WBC >100,00 0 may have falsely elevated Potassium levels. ??For accurate Potassium quantif ication in these patients send serum separator tube (gold top) for subsequent determinations. ??Contact the Clinical Chemistry Laboratory if there are any qu estions. Chloride 100 98 - 107 mmol/L [facility] CO2 21 (L) 22 - 31 mmol/L [facility] Anion Gap 12 5 - 15 mmol/L [facility] Calcium 7.8 (L) 8.5 - 10.5 mg/dL [facility] K [facility] Estimated GFR 42 (L) >=60 mL/min/1.73 m?? [facility] Comment: This patient's estimated GFR [...] Organization Address City/State/[place] [address] (ABNORMAL) BLOOD GAS 2 ARTERIAL (04/02/2022 4:38 PM EDT) Analysis Performed At Patho logist Time Signature pH Art 7.34 (L) 7.35 - [facility] 7.45 [facility] pCO2 Art 41 35 - 45 [facility] mmHg [facility] pO2 Art 78 (L) 85 - 104 [facility] LABORATORY HCO3 Art 21.4 20.0 - [facility] 26.0 [facility] mmol/L [facility] BE Art -4.5 (L) -3.0 - 3.0 [facility] mmol/L [facility] Hgb Blood Gas 8.9 (L) 11.7 - [facility] 15.5 g/dL [facility] O2HB Art 91.9 (L) 94.0 - [facility] 97.0 % [facility] COHB Art 0.9 % [facility] Comment: Nonsmokers: 0.5-1.5% COHB Smokers: Variable, but usually less than 10% Toxic: 20-30% COHB Lethal: Greater than 60% COHB METHB Art 0.6 <=1.5 % [facility] Na Whole Blood 128 (L) 135 - 145 mmol/L [facility] K Whole Blood 4.7 3.5 - 5.0 mmol/L [facility] Comment: Please note: Patients with WBC >100,000 may have falsely elevated Potassium levels. Contact the Clinical Chemistry L aboratory if there are any questions. ICa Whole Blood 1.09 (L) 1.15 - 1.33 mmol/L [facility] Comment: Note: ??Total bilirubin higher than 20 m g/dL may lead to falsely low ionized calcium. CL Whole Blood 100 98 - 107 mmol/L [facility] Gluc Whole Bld 274 (H) 65 - 199 mg/dL [facility] Comment: Diabetes: >=200 mg/dL plus symp toms. Lactate WB 1.5 0.5 - 2.2 mmol/L [facility] Flow Art 2.0 LPM [facility] Specimen Anatomical Collection Method Collection Time Receive d Time (Source) Location / / Volume Laterality Blood 04/02/2022 4:38 PM 2 4:38 EDT PM EDT Abdulkadir Raya MD CHEMISTRY ORDERABLES Performing Organization Address City/State/[place] [address] POCT Glucose (04/02/2022 4:15 PM EDT) P athologist Signature POC Glucose 138 65 - 199 [facility] mg/dL [facility] Comment: Supplemental ranges: <140 mg/dL before meals <180 mg/dL all other times of the day Specimen Anatomical Collection Method Collection Time Receive d Time (Source) Location / / Volume Laterality Blood 04/02/2022 4:15 PM 2 4:15 EDT PM EDT Abdulkadir Raya MD POINT OF CARE TEST ORDERABLE S Performing Organization Address City/State/ZIP Code Phon e Number [place] [address] ECHOCARDIOGRAM LMTD W CONTRAST W LMTD SPEC DOPP COLOR DOPP (04/02/2022 4:11 PM EDT) athologist Signature EF 53 [facility] Anatomical Region Laterality Modality Cardiac Other Specimen (Source) Anatomical Collection Method Collection Time Re ceived Time Location / / Volume Laterality 04/02/2022 3:24 PM EDT Narrative 04/02/2022 4:48 PM EDT ?[facility] ? Medical Center ?[address] ? [place] [address] ?Voice: ?Fax: ? Echocardiogram Report Name: MARCELLE ALBARRAN ? Study Date: 04/02/2022 03:24 PMBP: 131/65 mmHg ? Patient Location: [facility] CV30 A : 1950 ? Height: 147 cm ? Account: [id number] Age: 72 yrs ? Weight: 109 kg Gender: Female ?BSA: 2.0 m2 Ordering Physician: OLENA LOYA Referring Physician: ABDULKADIR RAYA Performed By: ALPA Paniagua Reason For Study: Decreased cardiac outp ut, post op CABG/AVR Exam Location: [facility]. Interpretation Summary Technically limited due to [...] no intravalvular l eak. Procedure Limited - 00477. Color Doppler - 86651. limited spectral 89356. Image enhancement Definity was used for left [...] note might be different from the original. [facility] [address] [place] [address] Voice: Fax: Echocardiogram Report Name: MARCELLE ALBARRAN Study Date: 2021 03:24 PMBP: 131/65 mmHg Patient Location: [address] : 1950 Height: 147 cm Account: [id number] Age: 72 yrs Weight: 109 kg Gender: Female BSA: 2.0 m2 Ordering Physician: OLENA LOYA Referring Physician: ABDULKADIR RAYA Performed By: APLA Paniagua Reason For Study: Decreased cardiac outp ut, post op CABG/AVR Exam Location: [facility]. Interpretation Summary Technically limited due to [...] no intravalvular l eak. Procedure Limited - 28417. Color Doppler - 53539. limited spectral 18038. Image enhancement Definity was used for left [...] EDT) athologist Signature pO2 Coox 24 mmHg [facility] Hgb Blood Gas 8.8 (L) 11.7 - [facility] 15.5 g/dL [facility] O2HB Coox 34.7 % [facility] COHB Coox 0.8 % [facility] Comment: Nonsmokers: 0.5-1.5% COHB Smokers: Variable, but usually less than 10% Toxic: 20-30% COHB Lethal: Greater than 60% COHB METHB Coox 0.8 <=1.5 % [facility] Source Coox Mixed Venous [facility] Specimen Anatomical Collection Method Collection Time Receive d Time (Source) Location / / Volume Laterality Blood 04/02/2022 4:01 PM 4:01 EDT PM EDT Abdulkadir Raya MD CHEMISTRY ORDERABLES Performing Organization Address City/State/[place] [address] (ABNORMAL) BLOOD GAS 2 ARTERIAL (04/02/2022 2:48 PM EDT) Analysis Performed At Patho logist Time Signature pH Art 7.34 (L) 7.35 - [facility] 7.45 [facility] pCO2 Art 40 35 - 45 [facility] LABORATORY pO2 Art 64 (L) 85 - 104 [facility] LABORATORY HCO3 Art 20.6 20.0 - [facility] 26.0 [facility] mmol/L [facility] BE Art -5.2 (L) -3.0 - 3.0 [facility] mmol/L [facility] Hgb Blood Gas 9.7 (L) 11.7 - [facility] 15.5 g/dL [facility] O2HB Art 88.4 (L) 94.0 - [facility] 97.0 % [facility] COHB Art 1.2 % [facility] Comment: Nonsmokers: 0.5-1.5% COHB Smokers: Variable, but usually less than 10% Toxic: 20-30% COHB Lethal: Greater than 60% COHB METHB Art 0.5 <=1.5 % [facility] Na Whole Blood 130 (L) 135 - 145 mmol/L [facility] K Whole Blood 5.8 (H) 3.5 - 5.0 mmol/L [facility] Comment: Please note: Patients with WBC >100,000 may have falsely elevated Potassium levels. Contact the Clinical Chemistry L aboratory if there are any questions. ICa Whole Blood 1.16 1.15 - 1.33 mmol/L [facility] Comment: Note: ??Total bilirubin higher than 20 m g/dL may lead to falsely low ionized calcium. CL Whole Blood 100 98 - 107 mmol/L [facility] Gluc Whole Bld 131 65 - 199 mg/dL [facility] Comment: Diabetes: >=200 mg/dL plus symp toms. Lactate WB 1.7 0.5 - 2.2 mmol/L [facility] Flow Art 1.0 LPM [facility] Specimen Anatomical Collection Method Collection Time Receive d Time (Source) Location / / Volume Laterality Blood 04/02/2022 2:48 PM 2 2:48 EDT PM EDT Abdulkadir Raya MD CHEMISTRY ORDERABLES Performing Organization Address City/State/[place] [address] Insert pulmonary artery catheter [...] suspecte d line-associated infection. Location of Procedure: [facility] Risks and Benefits: The risks and benefits [...] the planned procedu re. Hand Hygiene: The filler block inserter remover did perform hand hygiene pr ior to line insertion. Procedure Technique: Skin was prepped with chlorhexidine. The introducer that was existing was sharif rilized and a full drape was placed. ??The swan was floated in no rmal fashion without inicident. Floating the [place] Catheter Attempts : as above Comments: sterile technique Sterile Dressing: CHG Impregnated Tegaderm Cardiac Output: 1.5 L/min Complications: No complications. Post Procedure: Procedure well tolerated. Procedure Comments: Olena Loya MD PROCEDURE/MINOR SURGICAL ORD ERABLES (ABNORMAL) Coox2 (04/02/2022 2:17 PM EDT) P athologist Signature pO2 Coox 23 mmHg [facility] Hgb Blood Gas 8.3 (L) 11.7 - [facility] 15.5 g/dL [facility] O2HB Coox 30.4 % [facility] COHB Coox 0.6 % [facility] Comment: Nonsmokers: 0.5-1.5% COHB Smokers: Variable, but usually less than 10% Toxic: 20-30% COHB Lethal: Greater than 60% COHB METHB Coox 1.2 <=1.5 % [facility] Source Coox Mixed Venous [facility] Specimen Anatomical Collection Method Collection Time Receive d Time (Source) Location / / Volume Laterality Blood 04/02/2022 2:17 PM 2:17 EDT PM EDT Abdulkadir Raya MD CHEMISTRY ORDERABLES Performing Organization Address City/State/[place] [address] XR Chest One View [...] who have questions please contact the health post anesthesia care unit nurse that requested your imaging first. ? Electronically signed by: Daisha Ross MD, [facility] ([phone]), at 04/02/2022 5:17 PM Narrative 04/02/2022 5:17 [...] ho have questions please contact the health post anesthesia care unit nurse that requested your imaging first. Electronically signed by: Daisha Ross MD, [facility] ([phone]), at 04/02/2022 5:17 PM Olena Loya MD IMG DX ORDERABLES POCT Glucose (04/02/2022 12:29 PM EDT) P athologist Signature POC Glucose 134 65 - 199 [facility] mg/dL [facility] Comment: Supplemental ranges: <140 mg/dL before meals <180 mg/dL all other times of the day Specimen Anatomical Collection Method Collection Time Receive d Time (Source) Location / / Volume Laterality Blood 04/02/2022 12:29 04/02/2022 PM EDT 12:29 PM EDT Abdulkadir Raya MD POINT OF CARE TEST ORDERABLE S Performing Organization Address City/State/[place] [address] (ABNORMAL) Potassium (04/02/2022 11:40 AM EDT) athologist Signature Potassium 6.0 (H) 3.5 - 5.0 [facility] mmol/L [facility] Comment: Please note: ??Patients with [...] Organization Address City/State/[place] [address] POCT Glucose (04/02/2022 8:11 AM EDT) athologist Signature POC Glucose 135 65 - 199 [facility] mg/dL [facility] Comment: Supplemental ranges: <140 mg/dL before meals <180 mg/dL all other times of the day Specimen Anatomical Collection Method Collection Time Receive d Time (Source) Location / / Volume Laterality Blood 04/02/2022 8:11 AM 8:11 EDT AM EDT Abdulkadir Raya MD POINT OF CARE TEST ORDERABLE S Performing Organization Address City/State/[place] [address] POCT Glucose (04/02/2022 6:51 AM EDT) athologist Signature POC Glucose 168 65 - 199 [facility] mg/dL [facility] Comment: Supplemental ranges: <140 mg/dL before meals <180 mg/dL all other times of the day Specimen Anatomical Collection Method Collection Time Receive d Time (Source) Location / / Volume Laterality Blood 04/02/2022 6:51 AM 2 6:51 EDT AM EDT Abdulkadir Raya MD POINT OF CARE TEST ORDERABLE S Performing Organization Address City/State/ZIP Code Ph[place] e [place] [id number] LABORATORY Drive XR Chest PA & [...] who have questions please contact the health post anesthesia care unit nurse that requested your imaging first. ? --------ORIGINAL REPORT -------- EXAMINATION: XR CHEST PA AND LATERAL ([employer]) CLINICAL HISTORY: s/p avr, asc aorta pat [...] who have questions please contact the health post anesthesia care unit nurse that requested your imaging first. ? Electronically signed by: Magno Molina MD, [facility] ([phone]), at 04/02/2022 7:14 AM Impressions 04/02/2022 7:14 AM EDT Evidence of right greater than left pleural effusion. Interval decrease in interstitial edema. Thank you for letting us participate in the care of this patient. ??If you are a health care provider and have any questi ons regarding this report, please contact the number below. ??For patients who have questions please contact the health post anesthesia care unit nurse that requested your imaging first. ? Electronically signed by: Magno Molina MD, [facility] ([phone]), at 04/02/2022 7:14 AM Narrative 04/02/2022 7:14 AM EDT EXAMINATION: XR [...] original. EXAMINATION: XR CHEST PA AND LATERAL ([employer] [employer]) CLINICAL HISTORY: s/p avr, asc aorta pat [...] ho have questions please contact the health post anesthesia care unit nurse that requested your imaging first. Vesna Trent APRN IMG DX ORDERABLES (ABNORMAL) Differential, Automated (04/02/2022 12:35 AM EDT) [facility] Method Time Signature Neutrophils % 87.5 % [facility] Neutr Abs (ANC) 15.86 (H) 1.70 - [facility] 6.10 [facility] x10(3)/[facility] L LABORATORY Lymphocytes % 5.1 % [facility] Lymphocytes Abs 0.9 0.9 - 3.2 [facility] x10(3)/[facility] LABORATORY Monocytes % 6.3 % [facility] Monocyte Abs 1.1 (H) 0.3 - 0.9 [facility] x10(3)/[facility] LABORATORY Eosinophils % 0.1 % [facility] Eosinophils Abs 0.0 0.0 - 0.4 [facility] x10(3)/[facility] LABORATORY Basophils % 0.2 % [facility] Basophils Abs 0.0 0.0 - 0.1 [facility] x10(3)/[facility] LABORATORY Immature Gran % 0.80 % [facility] Comment: Immature granulocytes(IG's)percentage an d absolute count will include metamyelocytes, myelocytes, and promyelo cytes. Blood smears from CBCs yielding IG's will be scanned manually for concor dance. If this scan disagrees with the automated IG or if promyelocytes are not ed, a manual differential will be performed. Zohreh Gran Abs 0.14 (H) 0.00 - 0.04 x10(3)/[facility] LABORATORY Specimen Anatomical Collection Method Collection Time Receive d Time (Source) Location / / Volume Laterality Blood 04/02/2022 12:35 04/02/2022 AM EDT 12:51 AM EDT Resulting Agency Comment Spec In Lab Vesna Trent APRN HEMATOLOGY ORDERABLES Performing Organization Address City/State/[place] [address] (ABNORMAL) Hemogram (04/02/2022 12:35 AM EDT) Analysis Performed At Patho logist Time Signature WBC 18.1 (H) 4.0 - 9.5 [facility] x10(3)/[facility] LABORATORY RBC 3.27 (L) 4.00 - [facility] KRYSTA 5.21 [facility] x10(6)/[facility] LABORATORY Hemoglobin 8.6 (L) 11.7 - [facility] 15.5 g/dL [facility] Hematocrit 28.4 (L) 35.7 - [facility] KRYSTA 45.8 % [facility] MCV 86.9 82.6 - [facility] 94.4 fL [facility] MCH 26.3 (L) 27.1 - [facility] [place] 32.0 pg [facility] MCHC 30.3 (L) 31.7 - [facility] g/dL [facility] Platelets 180 145 - 357 [facility] x[facility](3[facility] LABORATORY RDWSD 52.4 (H) 37.0 - [facility] 46.0 [facility] LABORATORY RDWCV 16.5 (H) 11.5 - [facility] 14.1 % [facility] MPV 9.8 7.6 - 12.9 [facility] LABORATORY nRBC % Auto 0.0 % [facility] nRBC Abs Auto 0.000 0.000 - [facility] 0.000 [facility] x10(3)/[facility] LABORATORY Specimen Anatomical Collection Method Collection Time Receive d Time (Source) Location / / Volume Laterality Blood 04/02/2022 12:35 04/02/2022 AM EDT 12:51 AM EDT Resulting Agency Comment Spec In Lab Vesna Twan BARAJAS HEMATOLOGY ORDERABLES Performing Organization Address City/State/[place] [address] (ABNORMAL) Basic Metabolic Panel (non-fasting) (04/02/2022 12:35 AM EDT) P athologist Signature Glucose Lvl 149 65 - 199 [facility] mg/dL [facility] Comment: Diabetes: >=200 mg/dL plus symp toms BUN 51 (H) 8 - 18 mg/dL [facility] Creatinine 1.29 (H) 0.70 - 1.20 mg/dL [facility] Sodium 134 (L) 135 - 145 mmol/L [facility] Potassium 5.6 (H) 3.5 - 5.0 mmol/L [facility] Comment: Please note: ??Patients with WBC >100,00 0 may have falsely elevated Potassium levels. ??For accurate Potassium quantif ication in these patients send serum separator tube (gold top) for subsequent determinations. ??Contact the Clinical Chemistry Laboratory if there are any qu estions. Chloride 102 98 - 107 mmol/L [facility] CO2 21 (L) 22 - 31 mmol/L [facility] Anion Gap 11 5 - 15 mmol/L [facility] Calcium 8.0 (L) 8.5 - 10.5 mg/dL [facility] Estimated GFR 44 (L) >=60 mL/min/1.73 m?? [facility] Comment: This patient's estimated GFR [...] Organization Address City/State/[place] [address] POCT Glucose (04/01/2022 5:29 PM EDT) athologist Signature POC Glucose 144 65 - 199 [facility] mg/dL [facility] Comment: Supplemental ranges: <140 mg/dL before meals <180 mg/dL all other times of the day Specimen Anatomical Collection Method Collection Time Receive d Time (Source) Location / / Volume Laterality Blood 04/01/2022 5:29 PM 5:29 EDT PM EDT Abdulkadir Raya MD POINT OF CARE TEST ORDERABLE S Performing Organization Address City/State/[place] [address] (ABNORMAL) Basic Metabolic Panel (non-fasting) (04/01/2022 2:00 AM EDT) athologist Signature Glucose Lvl 149 65 - 199 [facility] mg/dL [facility] Comment: Diabetes: >=200 mg/dL plus symp toms BUN 34 (H) 8 - 18 mg/dL [facility] Creatinine 1.20 0.70 - 1.20 mg/dL [facility] Sodium 134 (L) 135 - 145 mmol/L [facility] Potassium 5.1 (H) 3.5 - 5.0 mmol/L [facility] Comment: Please note: ??Patients with WBC >100,00 0 may have falsely elevated Potassium levels. ??For accurate Potassium quantif ication in these patients send serum separator tube (gold top) for subsequent determinations. ??Contact the Clinical Chemistry Laboratory if there are any qu estions. Chloride 102 98 - 107 mmol/L [facility] CO2 22 22 - 31 mmol/L [facility] Anion Gap 10 5 - 15 mmol/L [facility] Calcium 7.9 (L) 8.5 - 10.5 mg/dL [facility] Estimated GFR 48 (L) >=60 mL/min/1.73 m?? [facility] Comment: This patient's estimated GFR [...] / Volume Laterality Blood 04/01/2022 2:00 AM 2 2:03 EDT AM EDT Resulting Agency Comment Spec In Lab Vesna Trent JENN CHEMISTRY ORDERABLES Performing Organization Address City/State/[place] [address] (ABNORMAL) Potassium (03/31/2022 10:00 PM EDT) athologist Signature Potassium 5.1 (H) 3.5 - 5.0 [facility] [place] mmol/L [facility] Comment: Please note: ??Patients with [...] Raya MD CHEMISTRY ORDERABLES Performing Organization Address City/[facility]/[place] [address] POCT Glucose (03/31/2022 9:58 PM EDT) athologist Signature POC Glucose 132 65 - 199 [facility] [place] mg/dL [facility] Comment: Supplemental ranges: <140 mg/dL before meals <180 mg/dL all other times of the day Specimen Anatomical Collection Method Collection Time Receive d Time (Source) Location / / Volume Laterality Blood 03/31/2022 9:58 PM 2 9:58 EDT PM EDT Abdulkadir Raya MD POINT OF CARE TEST ORDERABLE S Performing Organization Address City/[facility]/[place] [address] POCT Glucose (03/31/2022 8:34 PM EDT) athologist Signature POC Glucose 161 65 - 199 [place] mg/dL [facility] Comment: Supplemental ranges: <140 mg/dL before meals <180 mg/dL all other times of the day Specimen Anatomical Collection Method Collection Time Receive d Time (Source) Location / / Volume Laterality Blood 03/31/2022 8:34 PM 2 8:34 EDT PM EDT Abdulkadir Raya MD POINT OF CARE TEST ORDERABLE S Performing Organization Address City/State/[place] [address] POCT Glucose (03/31/2022 6:57 PM EDT) athologist Signature POC Glucose 134 65 - 199 [facility] [place] mg/dL [facility] Comment: Supplemental ranges: <140 mg/dL before meals <180 mg/dL all other times of the day Specimen Anatomical Collection Method Collection Time Receive d Time (Source) Location / / Volume Laterality Blood 03/31/2022 6:57 PM 2 6:57 EDT PM EDT Abdulkadir Raya MD POINT OF CARE TEST ORDERABLE S Performing Organization Address City/State/ZIP Code Phon e Number [address] POCT Glucose (03/31/2022 5:06 PM EDT) athologist Signature POC Glucose 146 65 - 199 [facility] mg/dL [facility] Comment: Supplemental ranges: <140 mg/dL before meals <180 mg/dL all other times of the day Specimen Anatomical Collection Method Collection Time Receive d Time (Source) Location / / Volume Laterality Blood 03/31/2022 5:06 PM 2 5:06 EDT PM EDT Abdulkadir Raya MD POINT OF CARE TEST ORDERABLE S Performing Organization Address City/State/[place] [address] (ABNORMAL) Basic Metabolic Panel (non-fasting) (03/31/2022 5:00 PM EDT) athologist Signature Glucose Lvl 142 65 - 199 [facility] mg/dL [facility] Comment: Diabetes: >=200 mg/dL plus symp toms BUN 30 (H) 8 - 18 mg/dL [facility] Creatinine 1.30 (H) 0.70 - 1.20 mg/dL [facility] Sodium 137 135 - 145 mmol/L [facility] Potassium 5.8 (H) 3.5 - 5.0 mmol/L [facility] Comment: Please note: ??Patients with WBC >100,00 0 may have falsely elevated Potassium levels. ??For accurate Potassium quantif ication in these patients send serum separator tube (gold top) for subsequent determinations. ??Contact the Clinical Chemistry Laboratory if there are any qu estions. Chloride 103 98 - 107 mmol/L [facility] CO2 20 (L) 22 - 31 mmol/L [facility] Anion Gap 14 5 - 15 mmol/L [facility] Calcium 8.3 (L) 8.5 - 10.5 mg/dL [facility] Estimated GFR 44 (L) >=60 mL/min/1.73 m?? [facility] Comment: This patient's estimated GFR [...] Organization Address City/State/[place] [address] (ABNORMAL) Potassium (03/31/2022 5:00 PM EDT) P athologist Signature Potassium 5.7 (H) 3.5 - 5.0 [facility]/L [facility] Comment: Please note: ??Patients with [...] Organization Address City/State/[place] [address] POCT Glucose (03/31/2022 3:33 PM EDT) athologist Signature POC Glucose 146 65 - 199 [place] mg/dL [facility] Comment: Supplemental ranges: <140 mg/dL before meals <180 mg/dL all other times of the day Specimen Anatomical Collection Method Collection Time Receive d Time (Source) Location / / Volume Laterality Blood 03/31/2022 3:33 PM 2 3:33 EDT PM EDT Abdulkadir Raya MD POINT OF CARE TEST ORDERABLE S Performing Organization Address City/[facility]/ZIP Code Phon e Number [address] POCT Glucose (03/31/2022 1:04 PM EDT) athologist Signature POC Glucose 131 65 - 199 [facility] mg/dL [facility] Comment: Supplemental ranges: <140 mg/dL before meals <180 mg/dL all other times of the day Specimen Anatomical Collection Method Collection Time Receive d Time (Source) Location / / Volume Laterality Blood 03/31/2022 1:04 PM 2 1:04 EDT PM EDT Abdulkadir Raya MD POINT OF CARE TEST ORDERABLE S Performing Organization Address City/State/[place] [address] POCT Glucose (03/31/2022 11:45 AM EDT) athologist Signature POC Glucose 121 65 - 199 [facility] mg/dL [facility] Comment: Supplemental ranges: <140 mg/dL before meals <180 mg/dL all other times of the day Specimen Anatomical Collection Method Collection Time Receive d Time (Source) Location / / Volume Laterality Blood 03/31/2022 11:45 03/31/2022 AM EDT 11:45 AM EDT Abdulkadir Raya MD POINT OF CARE TEST ORDERABLE S Performing Organization Address City/State/[place] [address] POCT Glucose (03/31/2022 11:15 AM EDT) athologist Signature POC Glucose 124 65 - 199 [place] mg/dL [facility] Comment: Supplemental ranges: <140 mg/dL before meals <180 mg/dL all other times of the day Specimen Anatomical Collection Method Collection Time Receive d Time (Source) Location / / Volume Laterality Blood 03/31/2022 11:15 03/31/2022 AM EDT 11:15 AM EDT Abdulkadir Raya MD POINT OF CARE TEST ORDERABLE S Performing Organization Address City/State/[place] [address] POCT Glucose (03/31/2022 10:02 AM EDT) athologist Signature POC Glucose 141 65 - 199 [place] mg/dL [facility] Comment: Supplemental ranges: <140 mg/dL before meals <180 mg/dL all other times of the day Specimen Anatomical Collection Method Collection Time Receive d Time (Source) Location / / Volume Laterality Blood 03/31/2022 10:02 03/31/2022 AM EDT 10:02 AM EDT Abdulkadir Raya MD POINT OF CARE TEST ORDERABLE S Performing Organization Address City/State/ZIP Code Phon e Number [address] POCT Glucose (03/31/2022 9:07 AM EDT) athologist Signature POC Glucose 134 65 - 199 [place] mg/dL [facility] Comment: Supplemental ranges: <140 mg/dL before meals <180 mg/dL all other times of the day Specimen Anatomical Collection Method Collection Time Receive d Time (Source) Location / / Volume Laterality Blood 03/31/2022 9:07 AM 2 9:07 EDT AM EDT Abdulkadir Raya MD POINT OF CARE TEST ORDERABLE S Performing Organization Address City/State/[place] [address] POCT Glucose (03/31/2022 7:57 AM EDT) P athologist Signature POC Glucose 147 65 - 199 [facility] mg/dL [facility] Comment: Supplemental ranges: <140 mg/dL before meals <180 mg/dL all other times of the day Specimen Anatomical Collection Method Collection Time Receive d Time (Source) Location / / Volume Laterality Blood 03/31/2022 7:57 AM 2 7:57 EDT AM EDT Abdulkadir Raya MD POINT OF CARE TEST ORDERABLE S Performing Organization Address City/State/[place] [address] (ABNORMAL) BLOOD GAS 2 ARTERIAL (03/31/2022 6:28 AM EDT) Analysis Performed At Patho logist Time Signature pH Art 7.31 (L) 7.35 - [facility] 7.45 [facility] pCO2 Art 47 (H) 35 - 45 [facility] mmHg [facility] pO2 Art 99 85 - 104 [facility] LABORATORY HCO3 Art 22.8 20.0 - [facility] 26.0 [facility] mmol/L [facility] BE Art -3.5 (L) -3.0 - 3.0 [facility] mmol/L [facility] Hgb Blood Gas 9.4 (L) 11.7 - [facility] 15.5 g/dL [facility] O2HB Art 95.7 94.0 - [facility] 97.0 % [facility] COHB Art 0.7 % [facility] Comment: Nonsmokers: 0.5-1.5% COHB Smokers: Variable, but usually less than 10% Toxic: 20-30% COHB Lethal: Greater than 60% COHB METHB Art 0.5 <=1.5 % [facility] Na Whole Blood 135 135 - 145 mmol/L [facility] K Whole Blood 5.1 (H) 3.5 - 5.0 mmol/L [facility] Comment: Please note: Patients with WBC >100,000 may have falsely elevated Potassium levels. Contact the Clinical Chemistry L aboratory if there are any questions. ICa Whole Blood 1.18 1.15 - 1.33 mmol/L [facility] Comment: Note: ??Total bilirubin higher than 20 m g/dL may lead to falsely low ionized calcium. CL Whole Blood 105 98 - 107 mmol/L [facility] Gluc Whole Bld 139 65 - 199 mg/dL [facility] Comment: Diabetes: >=200 mg/dL plus symp toms. Lactate WB 2.3 (H) 0.5 - 2.2 mmol/L [facility] FIO2 Art 40 % [facility] PF Ratio Art 248 [facility] Specimen Anatomical Collection Method Collection Time Receive d Time (Source) Location / / Volume Laterality Blood 03/31/2022 6:28 AM 2 6:28 EDT AM EDT Abdulkadir Raya MD CHEMISTRY ORDERABLES Performing Organization Address City/[facility]/ZIP Code Phon e Number [address] POCT Glucose (03/31/2022 5:32 AM EDT) P athologist Signature POC Glucose 128 65 - 199 [facility] mg/dL [facility] Comment: Supplemental ranges: <140 mg/dL before meals <180 mg/dL all other times of the day Specimen Anatomical Collection Method Collection Time Receive d Time (Source) Location / / Volume Laterality Blood 03/31/2022 5:32 AM 2 5:32 EDT AM EDT Abdulkadir Raya MD POINT OF CARE TEST ORDERABLE S Performing Organization Address City/State/[place] [address] POCT Glucose (03/31/2022 5:01 AM EDT) P athologist Signature POC Glucose 136 65 - 199 [facility] mg/dL [facility] Comment: Supplemental ranges: <140 mg/dL before meals <180 mg/dL all other times of the day Specimen Anatomical Collection Method Collection Time Receive d Time (Source) Location / / Volume Laterality Blood 03/31/2022 5:01 AM 5:01 EDT AM EDT Abdulkadir Raya MD POINT OF CARE TEST ORDERABLE S Performing Organization Address City/State/[place] [address] (ABNORMAL) BLOOD GAS 2 ARTERIAL (03/31/2022 4:02 AM EDT) Analysis Performed At Patho logist Time Signature pH Art 7.31 (L) 7.35 - [facility] 7.45 [facility] pCO2 Art 49 (H) 35 - 45 [facility] mmHg [facility] pO2 Art 106 (H) 85 - 104 [facility] LABORATORY HCO3 Art 24.3 20.0 - [facility] 26.0 [facility] mmol/L [facility] BE Art -1.9 -3.0 - 3.0 [facility] mmol/L [facility] Hgb Blood Gas 9.4 (L) 11.7 - [facility] 15.5 g/dL [facility] O2HB Art 96.3 94.0 - [facility] 97.0 % [facility] COHB Art 0.5 % [facility] Comment: Nonsmokers: 0.5-1.5% COHB Smokers: Variable, but usually less than 10% Toxic: 20-30% COHB Lethal: Greater than 60% COHB METHB Art 0.5 <=1.5 % [facility] Na Whole Blood 136 135 - 145 mmol/L [facility] K Whole Blood 4.9 3.5 - 5.0 mmol/L [facility] Comment: Please note: Patients with WBC >100,000 may have falsely elevated Potassium levels. Contact the Clinical Chemistry L aboratory if there are any questions. ICa Whole Blood 1.20 1.15 - 1.33 mmol/L [facility] Comment: Note: ??Total bilirubin higher than 20 m g/dL may lead to falsely low ionized calcium. CL Whole Blood 105 98 - 107 mmol/L [facility] Gluc Whole Bld 141 65 - 199 mg/dL [facility] Comment: Diabetes: >=200 mg/dL plus symp toms. Lactate WB 2.0 0.5 - 2.2 mmol/L [facility] FIO2 Art 40 % [facility] PF Ratio Art 265 [facility] Specimen Anatomical Collection Method Collection Time Receive d Time (Source) Location / / Volume Laterality Blood 03/31/2022 4:02 AM 2 4:02 EDT AM EDT Abdulkadir Raya MD CHEMISTRY ORDERABLES Performing Organization Address City/[facility]/ZIP Code Phon e Number [address] POCT Glucose (03/31/2022 3:58 AM EDT) P athologist Signature POC Glucose 149 65 - 199 [facility]dL [facility] Comment: Supplemental ranges: <140 mg/dL before meals <180 mg/dL all other times of the day Specimen Anatomical Collection Method Collection Time Receive d Time (Source) Location / / Volume Laterality Blood 03/31/2022 3:58 AM 2 3:58 EDT AM EDT Abdulkadir Raya MD POINT OF CARE TEST ORDERABLE S Performing Organization Address City/State/ZIP Code Phon e Number [address] POCT Glucose (03/31/2022 2:59 AM EDT) P athologist Signature POC Glucose 146 65 - 199 [facility] mg/dL [facility] Comment: Supplemental ranges: <140 mg/dL before meals <180 mg/dL all other times of the day Specimen Anatomical Collection Method Collection Time Receive d Time (Source) Location / / Volume Laterality Blood 03/31/2022 2:59 AM 2 2:59 EDT AM EDT Abdulkadir Raya MD POINT OF CARE TEST ORDERABLE S Performing Organization Address City/State/[place] [address] (ABNORMAL) Differential, Automated (03/31/2022 2:15 AM EDT) [facility] Method Time Signature Neutrophils % 90.9 % [facility] Neutr Abs (ANC) 15.48 (H) 1.70 - [facility] 6.10 [facility] x10(3)/[facility] L LABORATORY Lymphocytes % 3.5 % [facility] Lymphocytes Abs 0.6 (L) 0.9 - 3.2 [facility] x10(3)/[facility] LABORATORY Monocytes % 5.1 % [facility] Monocyte Abs 0.9 0.3 - 0.9 [facility] x10(3)/[facility] LABORATORY Eosinophils % 0.0 % [facility] Eosinophils Abs 0.0 0.0 - 0.4 [facility] x10(3)/[facility] LABORATORY Basophils % 0.1 % [facility] Basophils Abs 0.0 0.0 - 0.1 [facility] x10(3)/[facility] LABORATORY Immature Gran % 0.40 % [facility] Comment: Immature granulocytes(IG's)percentage an d absolute count will include metamyelocytes, myelocytes, and promyelo cytes. Blood smears from CBCs yielding IG's will be scanned manually for concor dance. If this scan disagrees with the automated IG or if promyelocytes are not ed, a manual differential will be performed. Zohreh Gran Abs 0.07 (H) 0.00 - 0.04 x10(3)/[facility] LABORATORY Specimen Anatomical Collection Method Collection Time Receive d Time (Source) Location / / Volume Laterality Blood 03/31/2022 2:15 AM 2 2:26 EDT AM EDT Resulting Agency Comment Spec In Lab Danuta VELOZ HEMATOLOGY ORDERABLES Performing Organization Address City/State/[place] [address] (ABNORMAL) Hemogram (03/31/2022 2:15 AM EDT) Analysis Performed At Patho logist Time Signature WBC 17.0 (H) 4.0 - 9.5 [facility] x10(3)/[facility] LABORATORY RBC 3.30 (L) 4.00 - [facility] 5.21 [facility] x10(6)/[facility] LABORATORY Hemoglobin 8.7 (L) 11.7 - [facility] 15.5 g/dL [facility] Hematocrit 28.9 (L) 35.7 - [facility] 45.8 % [facility] MCV 87.6 82.6 - [facility] 94.4 [facility] LABORATORY MCH 26.4 (L) 27.1 - [facility] 32.0 pg [facility] MCHC 30.1 (L) 31.7 - [facility] 35.0 g/dL [facility] Platelets 192 145 - 357 [facility] x10(3)/[facility] LABORATORY RDWSD 52.6 (H) 37.0 - [facility] 46.0 [facility] LABORATORY RDWCV 16.4 (H) 11.5 - [facility] 14.1 % [facility] MPV 9.3 7.6 - 12.9 [facility] LABORATORY nRBC % Auto 0.0 % [facility] nRBC Abs Auto 0.000 0.000 - [facility] 0.000 [facility] x10(3)/[facility] LABORATORY Specimen Anatomical Collection Method Collection Time Receive d Time (Source) Location / / Volume Laterality Blood 03/31/2022 2:15 AM 2 2:26 EDT AM EDT Resulting Agency Comment Spec In Lab aDnuta VELOZ HEMATOLOGY ORDERABLES Performing Organization Address City/State/[place] [address] (ABNORMAL) Basic Metabolic Panel (non-fasting) (03/31/2022 2:15 AM EDT) P athologist Signature Glucose Lvl 169 65 - 199 [facility] mg/dL [facility] Comment: Diabetes: >=200 mg/dL plus symp toms BUN 24 (H) 8 - 18 mg/dL [facility]ORATORY Creatinine 0.99 0.70 - 1.20 mg/dL [facility] LABORATORY Sodium 137 135 - 145 mmol/L [facility] Potassium 4.9 3.5 - 5.0 mmol/L [facility] Comment: Please note: ??Patients with WBC >100,00 0 may have falsely elevated Potassium levels. ??For accurate Potassium quantif ication in these patients send serum separator tube (gold top) for subsequent determinations. ??Contact the Clinical Chemistry Laboratory if there are any qu estions. Chloride 104 98 - 107 mmol/L [facility] CO2 25 22 - 31 mmol/L [facility] Anion Gap 8 5 - 15 mmol/L [facility] LABORATORY Calcium 8.6 8.5 - 10.5 mg/dL [facility] Estimated GFR 61 >=60 mL/min/1.73 m?? [facility] Comment: This patient's estimated GFR [...] Organization Address City/State/[place] [address] (ABNORMAL) Troponin (03/31/2022 2:15 AM EDT) athologist Signature Troponin-T 0.99 (H) 0.00 - [place] GARNICA 0.00 ng/mL [facility] Comment: The 99th percentile for Troponin T is le ss than 0.01 ng/mL, any detectable cTnT concentration using this assay should be considered elevated. According to the third universal definit ion of myocardial infarction the following criteria with a clinical prese ntation consistent with acute myocardial ischemia meets the diagnosis for a myocardial infarction (OK). Detection of a rise and/or fall of [...] additional sample may be indicated. Reference: Third Peyton Definition of Myocardial Infarction. Journal of the [employer] 2012;60:1581-98 Specimen Anatomical Collection Method Collection Time Receive d Time (Source) Location / / Volume Laterality Blood 03/31/2022 2:15 AM 2 2:26 EDT AM EDT Resulting Agency Comment Spec In Lab Abdulkadir Raya MD CHEMISTRY ORDERABLES Performing Organization Address City/State/[place] [address] POCT Glucose (03/31/2022 1:56 AM EDT) athologist Signature POC Glucose 147 65 - 199 [place] mg/dL [facility] Comment: Supplemental ranges: <140 mg/dL before meals <180 mg/dL all other times of the day Specimen Anatomical Collection Method Collection Time Receive d Time (Source) Location / / Volume Laterality Blood 03/31/2022 1:56 AM 2 1:56 EDT AM EDT Abdulkadir Raya MD POINT OF CARE TEST ORDERABLE S Performing Organization Address City/State/ZIP Code Phon e Number [address] POCT Glucose (03/31/2022 12:57 AM EDT) P athologist Signature POC Glucose 154 65 - 199 [place] mg/dL [facility] Comment: Supplemental ranges: <140 mg/dL before meals <180 mg/dL all other times of the day Specimen Anatomical Collection Method Collection Time Receive d Time (Source) Location / / Volume Laterality Blood 03/31/2022 12:57 03/31/2022 AM EDT 12:57 AM EDT Abdulkadir Raya MD POINT OF CARE TEST ORDERABLE S Performing Organization Address City/[facility]/ZIP Code Phon e Number [address] POCT Glucose (03/30/2022 11:58 PM EDT) athologist Signature POC Glucose 162 65 - 199 [place] mg/dL [facility] Comment: Supplemental ranges: <140 mg/dL before meals <180 mg/dL all other times of the day Specimen Anatomical Collection Method Collection Time Receive d Time (Source) Location / / Volume Laterality Blood 03/30/2022 11:58 03/30/2022 PM EDT 11:58 PM EDT Abdulkadir Raya MD POINT OF CARE TEST ORDERABLE S Performing Organization Address City/State/[place] [address] POCT Glucose (03/30/2022 11:00 PM EDT) P athologist Signature POC Glucose 180 65 - 199 [place] mg/dL [facility] Comment: Supplemental ranges: <140 mg/dL before meals <180 mg/dL all other times of the day Specimen Anatomical Collection Method Collection Time Receive d Time (Source) Location / / Volume Laterality Blood 03/30/2022 11:00 03/30/2022 PM EDT 11:00 PM EDT Abdulkadir Raya MD POINT OF CARE TEST ORDERABLE S Performing Organization Address City/State/ZIP Code Phon e Number [place], [place] [id number] [place] [address] POCT Glucose (03/30/2022 10:13 PM EDT) athologist Signature POC Glucose 194 65 - 199 [facility] mg/dL [facility] Comment: Supplemental ranges: <140 mg/dL before meals <180 mg/dL all other times of the day Specimen Anatomical Collection Method Collection Time Receive d Time (Source) Location / / Volume Laterality Blood 03/30/2022 10:13 03/30/2022 PM EDT 10:13 PM EDT Abdulkadir Raya MD POINT OF CARE TEST ORDERABLE S Performing Organization Address City/[facility]/[place] [address] (ABNORMAL) BLOOD GAS 2 ARTERIAL (03/30/2022 10:03 PM EDT) athologist Signature pH Art 7.27 7.35 - [facility] (Critical) 7.45 [facility] Comment: Noted by fretted string instrument repairer. pCO2 Art 52 (H) 35 - 45 mmHg [facility] pO2 Art 87 85 - [address] [facility] HCO3 Art 23.4 20.0 - 26.0 mmol/L [facility] BE Art -3.5 (L) -3.0 - 3.0 mmol/L [facility] Hgb Blood Gas 9.2 (L) 11.7 - 15.5 g/dL [facility] O2HB Art 93.8 (L) 94.0 - 97.0 % [facility] COHB Art 1.0 % [facility] Comment: Nonsmokers: 0.5-1.5% COHB Smokers: Variable, but usually less than 10% Toxic: 20-30% COHB Lethal: Greater than 60% COHB METHB Art 0.5 <=1.5 % [facility] Na Whole Blood 136 135 - 145 mmol/L [facility] K Whole Blood 4.4 3.5 - 5.0 mmol/L [facility] Comment: Please note: Patients with WBC >100,000 may have falsely elevated Potassium levels. Contact the Clinical Chemistry L aboratory if there are any questions. ICa Whole Blood 1.23 1.15 - 1.33 mmol/L [facility] Comment: Note: ??Total bilirubin higher than 20 m g/dL may lead to falsely low ionized calcium. CL Whole Blood 105 98 - 107 mmol/L [facility] Gluc Whole Bld 178 65 - 199 mg/dL [facility] Comment: Diabetes: >=200 mg/dL plus symp toms. Lactate WB 2.0 0.5 - 2.2 mmol/L [facility] FIO2 Art 40 % [facility] PF Ratio Art 218 [facility] Specimen Anatomical Collection Method Collection Time Receive d Time (Source) Location / / Volume Laterality Blood 03/30/2022 10:03 03/30/2022 PM EDT 10:03 PM EDT Abdulkadir Raya MD CHEMISTRY ORDERABLES Performing Organization Address City/State/[place] [address] (ABNORMAL) POCT Glucose (03/30/2022 9:25 PM EDT) P athologist Signature POC Glucose 210 (H) 65 - 199 [facility] mg/dL [facility] Comment: Supplemental ranges: <140 mg/dL before meals <180 mg/dL all other times of the day Specimen Anatomical Collection Method Collection Time Receive d Time (Source) Location / / Volume Laterality Blood 03/30/2022 9:25 PM 9:25 EDT PM EDT Abdulkadir Raya MD POINT OF CARE TEST ORDERABLE S Performing Organization Address City/State/[place] [address] (ABNORMAL) BLOOD GAS 2 ARTERIAL (03/30/2022 8:27 PM EDT) athologist Signature pH Art 7.26 7.35 - [facility] (Critical) 7.45 [facility] Comment: Noted by fretted string instrument repairer. pCO2 Art 54 (H) 35 - 45 mmHg [facility] pO2 Art 74 (L) 85 - [address] [facility] HCO3 Art 23.9 20.0 - 26.0 mmol/L [facility] BE Art -3.1 (L) -3.0 - 3.0 mmol/L [facility] Hgb Blood Gas 9.2 (L) 11.7 - 15.5 g/dL [facility] O2HB Art 91.3 (L) 94.0 - 97.0 % [facility] COHB Art 0.6 % [facility] Comment: Nonsmokers: 0.5-1.5% COHB Smokers: Variable, but usually less than 10% Toxic: 20-30% COHB Lethal: Greater than 60% COHB METHB Art 0.6 <=1.5 % [facility] Na Whole Blood 136 135 - 145 mmol/L [facility] K Whole Blood 4.3 3.5 - 5.0 mmol/L [facility] Comment: Please note: Patients with WBC >100,000 may have falsely elevated Potassium levels. Contact the Clinical Chemistry L aboratory if there are any questions. ICa Whole Blood 1.24 1.15 - 1.33 mmol/L [facility] Comment: Note: ??Total bilirubin higher than 20 m g/dL may lead to falsely low ionized calcium. CL Whole Blood 104 98 - 107 mmol/L [facility] Gluc Whole Bld 222 (H) 65 - 199 mg/dL [facility] Comment: Diabetes: >=200 mg/dL plus symp toms. Lactate WB 2.4 (H) 0.5 - 2.2 mmol/L [facility] FIO2 Art 40 % [facility] PF Ratio Art 185 [facility] Specimen Anatomical Collection Method Collection Time Receive d Time (Source) Location / / Volume Laterality Blood 03/30/2022 8:27 PM 2 8:27 EDT PM EDT Abdulkadir Raya MD CHEMISTRY ORDERABLES Performing Organization Address City/[facility]/[place] [address] (ABNORMAL) POCT Glucose (03/30/2022 8:16 PM EDT) athologist Signature POC Glucose 237 (H) 65 - 199 [facility] mg/dL [facility] Comment: Supplemental ranges: <140 mg/dL before meals <180 mg/dL all other times of the day Specimen Anatomical Collection Method Collection Time Receive d Time (Source) Location / / Volume Laterality Blood 03/30/2022 8:16 PM 2 8:16 EDT PM EDT Abdulkadir Raya MD POINT OF CARE TEST ORDERABLE S Performing Organization Address City/[facility]/[place] [address] (ABNORMAL) Hemoglobin (03/30/2022 8:15 PM EDT) athologist Signature Hemoglobin 8.5 (L) 11.7 - 15.5 [facility] g/dL [facility] Specimen Anatomical Collection Method Collection Time Receive d Time (Source) Location / / Volume Laterality Blood 03/30/2022 8:15 PM 2 8:33 EDT PM EDT Resulting Agency Comment Spec In Lab Abdulkadir Raya MD HEMATOLOGY ORDERABLES Performing Organization Address City/State/[place] [address] Potassium (03/30/2022 8:15 PM EDT) athologist Signature Potassium 4.5 3.5 - 5.0 [facility] mmol/L [facility] Comment: Please note: ??Patients with WBC >100,00 0 may have falsely elevated Potassium levels. ??For accurate Potassium quantif ication in these patients send serum separator tube (gold top) for subsequent determinations. ??Contact the Clinical Chemistry Laboratory if there are any qu estions. Specimen Anatomical Collection Method Collection Time Receive d Time (Source) Location / / Volume Laterality Blood 03/30/2022 8:15 PM 8:33 EDT PM EDT Resulting Agency Comment Spec In Lab Abdulkadir Raya MD CHEMISTRY ORDERABLES Performing Organization Address City/State/[place] [address] (ABNORMAL) BLOOD GAS 2 ARTERIAL (03/30/2022 7:07 PM EDT) [facility] gist Method Time Signature pH Art 7.25 7.35 - [facility] (Critical) 7.45 [facility] pCO2 Art 57 (H) 35 - 45 [facility] mmHg [facility] pO2 Art 62 (L) 85 - 104 [facility] HCO3 Art 24.2 20.0 - [facility] 26.0 [facility] mmol/L [facility] BE Art -3.1 (L) -3.0 - 3.0 [facility] mmol/L [facility] Hgb Blood Gas 9.4 (L) 11.7 - [facility] 15.5 g/dL [facility] O2HB Art 85.6 (L) 94.0 - [facility] 97.0 % [facility] COHB Art 0.8 % [facility] Comment: Nonsmokers: 0.5-1.5% COHB Smokers: Variable, but usually less than 10% Toxic: 20-30% COHB Lethal: Greater than 60% COHB METHB Art 0.7 <=1.5 % [facility] Na Whole Blood 136 135 - 145 mmol/L [facility] K Whole Blood 4.4 3.5 - 5.0 mmol/L [facility] Comment: Please note: Patients with WBC >100,000 may have falsely elevated Potassium levels. Contact the Clinical Chemistry L aboratory if there are any questions. ICa Whole Blood 1.27 1.15 - 1.33 mmol/L [facility] Comment: Note: ??Total bilirubin higher than 20 m g/dL may lead to falsely low ionized calcium. CL Whole Blood 103 98 - 107 mmol/L [facility] Gluc Whole Bld 237 (H) 65 - 199 mg/dL [facility] Comment: Diabetes: >=200 mg/dL plus symp toms. Lactate WB 2.4 (H) 0.5 - 2.2 mmol/L [facility] FIO2 Art 40 % [facility] PF Ratio Art 155 [facility] Specimen Anatomical Collection Method Collection Time Receive d Time (Source) Location / / Volume Laterality Blood 03/30/2022 7:07 PM 7:07 EDT PM EDT Abdulkadir Raya MD CHEMISTRY ORDERABLES Performing Organization Address City/State/[place] [address] (ABNORMAL) BLOOD GAS 2 ARTERIAL (03/30/2022 6:11 PM EDT) athologist Signature pH Art 7.19 7.35 - [facility] (Critical) 7.45 [facility] Comment: Noted by fretted string instrument repairer. pCO2 Art 64 (Critical) 35 - 45 mmHg [facility] Comment: Noted by fretted string instrument repairer. pO2 Art 206 (H) 85 - [address] [facility] HCO3 Art 24.1 20.0 - 26.0 mmol/L [facility] BE Art -4.0 (L) -3.0 - 3.0 mmol/L [facility] Hgb Blood Gas 9.1 (L) 11.7 - 15.5 g/dL [facility] O2HB Art 97.6 (H) 94.0 - 97.0 % [facility] COHB Art 0.4 % [facility] Comment: Nonsmokers: 0.5-1.5% COHB Smokers: Variable, but usually less than 10% Toxic: 20-30% COHB Lethal: Greater than 60% COHB METHB Art 0.8 <=1.5 % [facility] Na Whole Blood 136 135 - 145 mmol/L [facility] K Whole Blood 4.4 3.5 - 5.0 mmol/L [facility] Comment: Please note: Patients with WBC >100,000 may have falsely elevated Potassium levels. Contact the Clinical Chemistry L aboratory if there are any questions. ICa Whole Blood 1.28 1.15 - 1.33 mmol/L [facility] Comment: Note: ??Total bilirubin higher than 20 m g/dL may lead to falsely low ionized calcium. CL Whole Blood 103 98 - 107 mmol/L [facility] Gluc Whole Bld 236 (H) 65 - 199 mg/dL [facility] Comment: Diabetes: >=200 mg/dL plus symp toms. Lactate WB 2.2 0.5 - 2.2 mmol/L [facility] FIO2 Art 100 % [facility] PF Ratio Art 206 [facility] Specimen Anatomical Collection Method Collection Time Receive d Time (Source) Location / / Volume Laterality Blood 03/30/2022 6:11 PM 2 6:11 EDT PM EDT Abdulkadir Raya MD CHEMISTRY ORDERABLES Performing Organization Address City/State/[place] [address] XR Chest One View [...] who have questions please contact the health post anesthesia care unit nurse that requested your imaging first. ? Electronically signed by: Destiny Castillo MD, [facility] ([phone]), at 03/30/2022 5:31 PM Narrative 03/30/2022 5:31 PM EDT EXAMINATION: XR [...] with tip not inclu ded in the [id number]. At least 3 mediastinal drains are noted. [...] with tip not inclu ded in the [id number]. At least 3 mediastinal drains are noted. [...] ho have questions please contact the health post anesthesia care unit nurse that requested your imaging first. Electronically signed by: Destiny Castillo MD, [facility] ([phone]), at 03/30/2022 5:31 PM Abdulkadir Raya MD IMG DX ORDERABLES (ABNORMAL) BLOOD GAS 2 ARTERIAL (03/30/2022 5:09 PM EDT) P athologist Signature pH Art 7.11 7.35 - [facility] (Critical) 7.45 [facility] Comment: Noted by fretted string instrument repairer. pCO2 Art 80 (Critical) 35 - 45 mmHg [facility] Comment: Noted by fretted string instrument repairer. pO2 Art 175 (H) 85 - [address] [facility] HCO3 Art 24.9 20.0 - 26.0 mmol/L [facility] BE Art -4.7 (L) -3.0 - 3.0 mmol/L [facility] Hgb Blood Gas 9.5 (L) 11.7 - 15.5 g/dL [facility] O2HB Art 97.0 94.0 - 97.0 % [facility] COHB Art 0.6 % [facility] Comment: Nonsmokers: 0.5-1.5% COHB Smokers: Variable, but usually less than 10% Toxic: 20-30% COHB Lethal: Greater than 60% COHB METHB Art 0.8 <=1.5 % [facility] Na Whole Blood 138 135 - 145 mmol/L [facility] K Whole Blood 4.4 3.5 - 5.0 mmol/L [facility] Comment: Please note: Patients with WBC >100,000 may have falsely elevated Potassium levels. Contact the Clinical Chemistry L aboratory if there are any questions. ICa Whole Blood 1.31 1.15 - 1.33 mmol/L [facility] Comment: Note: ??Total bilirubin higher than 20 m g/dL may lead to falsely low ionized calcium. CL Whole Blood 103 98 - 107 mmol/L [facility] Gluc Whole Bld 229 (H) 65 - 199 mg/dL [facility] Comment: Diabetes: >=200 mg/dL plus symp toms. Lactate WB 2.0 0.5 - 2.2 mmol/L [facility] FIO2 Art 100 % [facility] PF Ratio Art 175 [facility] Specimen Anatomical Collection Method Collection Time Receive d Time (Source) Location / / Volume Laterality Blood 03/30/2022 5:09 PM 2 5:09 EDT PM EDT Abdulkadir Raya MD CHEMISTRY ORDERABLES Performing Organization Address City/[facility]/[place] [address] EKG 12 Lead (03/30/2022 4:54 PM EDT) Component Value Ref Range Test Analysis Performed Pathologis t Method Time At Signature Ventricular rate 80 BPM MUSE SYSTEM Atrial Rate 84 BPM MUSE SYSTEM P-R Interval 200 ms MUSE SYSTEM QRS Duration 134 ms MUSE SYSTEM Q-T Interval 476 ms MUSE SYSTEM QTC Calculated 548 ms MUSE SYSTEM (Bezet) Calculated P [place] 49 degrees MUSE SYSTEM Calculated R [place] -51 degrees MUSE SYSTEM Calculated T [place] 80 degrees MUSE SYSTEM INTERPRETATION Sinus rhythm [...] City/State/ZIP Code Phon e Number MUSE SYSTEM Prepare cryoprecipitate (03/30/2022 3:20 PM EDT) P athologist Signature Dispensed? Yes [facility] Specimen Anatomical Collection Method Collection Time Receive d Time (Source) Location / / Volume Laterality Blood 03/30/2022 3:20 PM 2 3:18 EDT PM EDT Abdulkadir Raya MD BLOOD BANK ORDERABLES Performing Organization Address City/State/[place] [address] (ABNORMAL) BLOOD GAS 2 ARTERIAL (03/30/2022 2:52 PM EDT) Analysis Performed At Patho logist Time Signature pH Art 7.34 (L) 7.35 - [facility] 7.45 [facility] pCO2 Art 42 35 - 45 [facility] pO2 Art 94 85 - 104 [facility] HCO3 Art 22.6 20.0 - [facility] 26.0 [facility] mmol/L [facility] BE Art -3.4 (L) -3.0 - 3.0 [facility] mmol/L [facility] Hgb Blood Gas 8.7 (L) 11.7 - [facility] 15.5 g/dL [facility] O2HB Art 95.4 94.0 - [facility] 97.0 % [facility] COHB Art 0.9 % [facility] Comment: Nonsmokers: 0.5-1.5% COHB Smokers: Variable, but usually less than 10% Toxic: 20-30% COHB Lethal: Greater than 60% COHB METHB Art 0.3 <=1.5 % [facility] Na Whole Blood 132 (L) 135 - 145 mmol/L [facility] K Whole Blood 4.2 3.5 - 5.0 mmol/L [facility] Comment: Please note: Patients with WBC >100,000 may have falsely elevated Potassium levels. Contact the Clinical Chemistry L aboratory if there are any questions. ICa Whole Blood 1.03 (L) 1.15 - 1.33 mmol/L [facility] Comment: Note: ??Total bilirubin higher than 20 m g/dL may lead to falsely low ionized calcium. CL Whole Blood 106 98 - 107 mmol/L [facility] Gluc Whole Bld 196 65 - 199 mg/dL [facility] Comment: Diabetes: >=200 mg/dL plus symp toms. Lactate WB 3.8 (H) 0.5 - 2.2 mmol/L [facility] FIO2 Art 63 % [facility] Flow Art 2.0 LPM [facility] PF Ratio Art 149 [facility] Temp Art 35.9 Celsius [facility] Specimen Anatomical Collection Method Collection Time Receive d Time (Source) Location / / Volume Laterality Blood 03/30/2022 2:52 PM 2 2:52 EDT PM EDT Abdulkadir Raya MD CHEMISTRY ORDERABLES Performing Organization Address City/[facility]/[place] [address] (ABNORMAL) Fibrinogen (03/30/2022 2:50 PM EDT) athologist Signature Fibrinogen 197 (L) 200 - 393 [facility] mg/dL [facility] Comment: OR Result called by [...] Pierre MD HEMATOLOGY ORDERABLES Performing Organization Address City/[facility]/[place] [address] APTT (03/30/2022 2:50 PM EDT) P athologist Signature PTT 34 25 - 37 sec [facility] Comment: OR Result called by [...] Organization Address City/State/[place] [address] (ABNORMAL) Prothrombin Time (03/30/2022 2:50 PM EDT) athologist Signature PT 22.2 (H) 9.4 - 12.5 [facility] Comment: OR Result called by ?? PREGTM OR Result s read back by: ? called to Sanjay Conway 03/30/22 @1518 at 2022-03-30 15:18:41 INR 1.9 [facility] Comment: OR Result called by ?? PREGTM OR Result s read back by: ? called to Sanjay Conway 03/30/22 @1518 at 2022-03-30 15:18:41 An INR [...] Organization Address City/State/[place] [address] (ABNORMAL) Hemogram (03/30/2022 2:50 PM EDT) P athologist Signature WBC 21.6 (H) 4.0 - 9.5 [facility] x10(3)/[facility] LABORATORY RBC 2.97 (L) 4.00 - [facility] 5.21 [facility] x10(6)/[facility] LABORATORY Hemoglobin 8.0 (L) 11.7 - [facility] 15.5 g/dL [facility] Hematocrit 26.4 (L) 35.7 - [facility] 45.8 % [facility] Comment: This result has been called to SANJAY Warren by Heri Ramirez on 03 30 2022 at 1514, and has been read back. MCV 88.9 82.6 - 94.4 [facility]ORATORY MCH 26.9 (L) 27.1 - 32.0 pg [facility] MCHC 30.3 (L) 31.7 - 35.0 g/dL [facility] Platelets 202 145 - 357 x10(3)/[facility] LABORATORY RDWSD 53.4 (H) 37.0 - 46.0 [facility]ORY RDWCV 16.5 (H) 11.5 - 14.1 % [facility] MPV 9.4 7.6 - 12.9 [facility]OR[facility]ORY nRBC % Auto 0.0 % [facility] nRBC Abs Auto 0.000 0.000 - 0.000 x10(3)/[facility] LABORATORY Specimen Anatomical Collection Method Collection Time Receive d Time (Source) Location / / Volume Laterality Blood 03/30/2022 2:50 PM 2 3:01 EDT PM EDT Resulting Agency Comment Spec In Lab Breann Pierre MD HEMATOLOGY ORDERABLES Performing Organization Address City/State/[place] [address] Platelet count (03/30/2022 2:50 PM EDT) P athologist Signature Platelets 202 145 - 357 [facility] x10(3)/[facility] LABORATORY Plat Immature 1.1 0.0 - 7.4 [facility] % % [facility] Comment: Limitation of the Immature Platelet Frac tion (IPF)-May be less reliable when the platelet count is less than 84i667/u L due to statistical imprecision. The IPF [...] in a decreased state of production. References: [employer] The Clinical Value of the Immature Platelet Fraction (IPF) in Cell Recovery Document Number 10-1143 03/2011 [employer] The Role of the Imm ature [...] Organization Address City/State/[place] [address] (ABNORMAL) BLOOD GAS 2 ARTERIAL (03/30/2022 2:22 PM EDT) Analysis Performed At Patho logist Time Signature pH Art 7.36 7.35 - [facility] 7.45 [facility] pCO2 Art 40 35 - 45 [facility]ORY pO2 Art 446 (H) 85 - 104 [facility]ORY HCO3 Art 22.6 20.0 - [facility] 26.0 [facility] mmol/L [facility] BE Art -2.8 -3.0 - 3.0 [facility] mmol/L [facility] Hgb Blood Gas 8.3 (L) 11.7 - [facility] 15.5 g/dL [facility] O2HB Art 98.3 (H) 94.0 - [facility] 97.0 % [facility] COHB Art 1.3 % [facility] Comment: Nonsmokers: 0.5-1.5% COHB Smokers: Variable, but usually less than 10% Toxic: 20-30% COHB Lethal: Greater than 60% COHB METHB Art 0.3 <=1.5 % [facility] Na Whole Blood 129 (L) 135 - 145 mmol/L [facility] K Whole Blood 4.5 3.5 - 5.0 mmol/L [facility] Comment: Please note: Patients with WBC >100,000 may have falsely elevated Potassium levels. Contact the Clinical Chemistry L aboratory if there are any questions. ICa Whole Blood 1.16 1.15 - 1.33 mmol/L [facility] Comment: Note: ??Total bilirubin higher than 20 m g/dL may lead to falsely low ionized calcium. CL Whole Blood 106 98 - 107 mmol/L [facility] Gluc Whole Bld 209 (H) 65 - 199 mg/dL [facility] Comment: Diabetes: >=200 mg/dL plus symp toms. Lactate WB 3.6 (H) 0.5 - 2.2 mmol/L [facility] Specimen Anatomical Collection Method Collection Time Receive d Time (Source) Location / / Volume Laterality Blood 03/30/2022 2:22 PM 2 2:22 EDT PM EDT Abdulkadir Raya MD CHEMISTRY ORDERABLES Performing Organization Address City/State/[place] [address] Prepare thawed plasma (03/30/2022 2:10 PM EDT) athologist Signature Dispensed? Yes [facility] Specimen Anatomical Collection Method Collection Time Receive d Time (Source) Location / / Volume Laterality Blood 03/30/2022 2:10 PM 2 2:08 EDT PM EDT Abdulkadir Raya MD BLOOD BANK ORDERABLES Performing Organization Address City/State/[place] [address] [facility] Drive Platelet count (03/30/2022 1:52 PM EDT) athologist Signature Platelets 227 145 - 357 [facility] x10(3)/[facility] LABORATORY Plat Immature 0.9 0.0 - 7.4 [facility] % % [facility] Comment: Limitation of the Immature Platelet Frac tion (IPF)-May be less reliable when the platelet count is less than 54f064/u L due to statistical imprecision. The IPF [...] in a decreased state of production. References: [employer] The Clinical Value of the Immature Platelet Fraction (IPF) in Cell Recovery Document Number [id number] 03/2011 [employer] The Role of the Imm ature [...] Organization Address City/State/[place] [address] (ABNORMAL) Hemoglobin and Hematocrit, blood (03/30/2022 1:52 PM EDT) P athologist Signature Hemoglobin 7.1 (L) 11.7 - [facility] 15.5 g/dL [facility] Hematocrit 23.1 (L) 35.7 - [facility] 45.8 % [facility] Comment: This result has been called to SANJAY Warren by Heri Ramirez on 03 30 2022 at 1411, and has been read back. Specimen Anatomical Collection Method Collection Time Receive d Time (Source) Location / / Volume Laterality Blood 03/30/2022 1:52 PM 2 2:01 EDT PM EDT Resulting Agency Comment Spec In Lab Abdulkadir Raya MD HEMATOLOGY ORDERABLES Performing Organization Address City/[facility]/[place] [address] Fibrinogen (03/30/2022 1:52 PM EDT) P athologist Signature Fibrinogen 208 200 - 393 [facility] mg[facility]dL [facility] Comment: OR Result called by [...] Raya MD HEMATOLOGY ORDERABLES Performing Organization Address City/[facility]/[place] [address] (ABNORMAL) BLOOD GAS 2 ARTERIAL (03/30/2022 1:51 PM EDT) Analysis Performed At Patho logist Time Signature pH Art 7.41 7.35 - [facility] 7.45 [facility] pCO2 Art 40 35 - 45 [facility] mmHg [facility] pO2 Art 497 (H) 85 - 104 [facility] LABORATORY HCO3 Art 24.4 20.0 - [facility] 26.0 [facility] mmol/L [facility] BE Art -0.3 -3.0 - 3.0 [facility] mmol/L [facility] Hgb Blood Gas 7.9 (L) 11.7 - [facility] 15.5 g/dL [facility] O2HB Art 98.7 (H) 94.0 - [facility] 97.0 % [facility] COHB Art 0.8 % [facility] Comment: Nonsmokers: 0.5-1.5% COHB Smokers: Variable, but usually less than 10% Toxic: 20-30% COHB Lethal: Greater than 60% COHB METHB Art 0.3 <=1.5 % [facility] Na Whole Blood 131 (L) 135 - 145 mmol/L [facility] K Whole Blood 4.0 3.5 - 5.0 mmol/L [facility] Comment: Please note: Patients with WBC >100,000 may have falsely elevated Potassium levels. Contact the Clinical Chemistry L aboratory if there are any questions. ICa Whole Blood 0.93 (L) 1.15 - 1.33 mmol/L [facility] Comment: Note: ??Total bilirubin higher than 20 m g/dL may lead to falsely low ionized calcium. CL Whole Blood 105 98 - 107 mmol/L [facility] Gluc Whole Bld 207 (H) 65 - 199 mg/dL [facility] Comment: Diabetes: >=200 mg/dL plus symp toms. Lactate WB 3.1 (H) 0.5 - 2.2 mmol/L [facility] Specimen Anatomical Collection Method Collection Time Receive d Time (Source) Location / / Volume Laterality Blood 03/30/2022 1:51 PM 2 1:51 EDT PM EDT Abdulkadir Raya MD CHEMISTRY ORDERABLES Performing Organization Address City/State/[place] [address] (ABNORMAL) BLOOD GAS 2 VENOUS (03/30/2022 1:11 PM EDT) Analysis Performed At Patho logist Time Signature pH All 7.31 (L) 7.32 - [facility] 7.42 [facility] pCO2 All 49 41 - 51 [facility] mmHg [facility] pO2 All 60 (H) 25 - 40 [facility] LABORATORY HCO3 All 24.0 mmol/L [facility] BE All -2.3 mmol/L [facility] Hgb Blood Gas 7.8 (L) 11.7 - [facility] 15.5 g/dL [facility] O2HB All 84.5 % [facility] COHB All 1.3 % [facility] Comment: Nonsmokers: 0.5-1.5% COHB Smokers: Variable, but usually less than 10% Toxic: 20-30% COHB Lethal: Greater than 60% COHB METHB All 0.3 <=1.5 % [facility] Na Whole Blood 131 (L) 135 - 145 mmol/L [facility] K Whole Blood 4.3 3.5 - 5.0 mmol/L [facility] Comment: Please note: Patients with WBC >100,000 may have falsely elevated Potassium levels. Contact the Clinical Chemistry L aboratory if there are any questions. ICa Whole Blood 0.92 (Critical) 1.15 - 1.33 mmol/L [facility] Comment: Note: ??Total bilirubin higher than 20 m g/dL may lead to falsely low ionized calcium. CL Whole Blood 104 98 - 107 mmol/L [facility] Gluc Whole Bld 221 (H) 65 - 199 mg/dL [facility] Comment: Diabetes: >=200 mg/dL plus symp toms Lactate WB 3.2 (H) 0.5 - 2.2 mmol/L [facility] BGas Source Venous [facility] Specimen Anatomical Collection Method Collection Time Receive d Time (Source) Location / / Volume Laterality Blood 03/30/2022 1:11 PM 2 1:11 EDT PM EDT Abdulkadir Raya MD CHEMISTRY ORDERABLES Performing Organization Address City/State/[place] [address] (ABNORMAL) BLOOD GAS 2 ARTERIAL (03/30/2022 1:08 PM EDT) Analysis Performed At Patho logist Time Signature pH Art 7.33 (L) 7.35 - [facility] 7.45 [facility] pCO2 Art 45 35 - 45 [facility] mmHg [facility] pO2 Art 531 (H) 85 - 104 [facility] LABORATORY HCO3 Art 23.1 20.0 - [facility] 26.0 [facility] mmol/LDS [facility] BE Art -2.9 -3.0 - 3.0 [facility] mmol/L [facility] Hgb Blood Gas 7.8 (L) 11.7 - [facility] 15.5 g/dL [facility] O2HB Art 98.5 (H) 94.0 - [facility] 97.0 % [facility] COHB Art 1.1 % [facility] Comment: Nonsmokers: 0.5-1.5% COHB Smokers: Variable, but usually less than 10% Toxic: 20-30% COHB Lethal: Greater than 60% COHB METHB Art 0.3 <=1.5 % [facility] Na Whole Blood 131 (L) 135 - 145 mmol/L [facility] K Whole Blood 4.5 3.5 - 5.0 mmol/L [facility] Comment: Please note: Patients with WBC >100,000 may have falsely elevated Potassium levels. Contact the Clinical Chemistry L aboratory if there are any questions. ICa Whole Blood 0.88 (Critical) 1.15 - 1.33 mmol/L [facility] Comment: Note: ??Total bilirubin higher than 20 m g/dL may lead to falsely low ionized calcium. CL Whole Blood 104 98 - 107 mmol/L [facility] Gluc Whole Bld 220 (H) 65 - 199 mg/dL [facility] Comment: Diabetes: >=200 mg/dL plus symp toms. Lactate WB 3.2 (H) 0.5 - 2.2 mmol/L [facility] Specimen Anatomical Collection Method Collection Time Receive d Time (Source) Location / / Volume Laterality Blood 03/30/2022 1:08 PM 2 1:08 EDT PM EDT Abdulkadir Raya MD CHEMISTRY ORDERABLES Performing Organization Address City/State/[place] [address] (ABNORMAL) BLOOD GAS 2 ARTERIAL (03/30/2022 12:31 PM EDT) Analysis Performed At Patho logist Time Signature pH Art 7.37 7.35 - [facility] 7.45 [facility] pCO2 Art 36 35 - 45 [facility] LABORATORY pO2 Art 523 (H) 85 - 104 [facility] LABORATORY HCO3 Art 20.6 20.0 - [facility] 26.0 [facility] mmol/LDS [facility] BE Art -4.7 (L) -3.0 - 3.0 [facility] mmol/L [facility] Hgb Blood Gas 9.6 (L) 11.7 - [facility] 15.5 g/dL [facility] O2HB Art 98.7 (H) 94.0 - [facility] 97.0 % [facility] COHB Art 0.9 % [facility] Comment: Nonsmokers: 0.5-1.5% COHB Smokers: Variable, but usually less than 10% Toxic: 20-30% COHB Lethal: Greater than 60% COHB METHB Art 0.3 <=1.5 % [facility] Na Whole Blood 131 (L) 135 - 145 mmol/L [facility] K Whole Blood 4.3 3.5 - 5.0 mmol/L [facility] Comment: Please note: Patients with WBC >100,000 may have falsely elevated Potassium levels. Contact the Clinical Chemistry L aboratory if there are any questions. ICa Whole Blood 1.00 (L) 1.15 - 1.33 mmol/L [facility] Comment: Note: ??Total bilirubin higher than 20 m g/dL may lead to falsely low ionized calcium. CL Whole Blood 104 98 - 107 mmol/L [facility] Gluc Whole Bld 202 (H) 65 - 199 mg/dL [facility] Comment: Diabetes: >=200 mg/dL plus symp toms. Lactate WB 2.2 0.5 - 2.2 mmol/L [facility] Specimen Anatomical Collection Method Collection Time Receive d Time (Source) Location / / Volume Laterality Blood 03/30/2022 12:31 03/30/2022 PM EDT 12:31 PM EDT Abdulkadir Raya MD CHEMISTRY ORDERABLES Performing Organization Address City/State/[place] [address] (ABNORMAL) BLOOD GAS 2 ARTERIAL (03/30/2022 12:05 PM EDT) Analysis Performed At Patho logist Time Signature pH Art 7.40 7.35 - [facility] 7.45 [facility] pCO2 Art 34 (L) 35 - 45 [facility] LABORATORY pO2 Art 524 (H) 85 - 104 [facility] LABORATORY HCO3 Art 20.8 20.0 - [facility] 26.0 [facility] mmol/LDS [facility] BE Art -3.9 (L) -3.0 - 3.0 [facility] mmol/L [facility] Hgb Blood Gas 10.2 (L) 11.7 - [facility] 15.5 g/dL [facility] O2HB Art 98.7 (H) 94.0 - [facility] 97.0 % [facility] COHB Art 0.9 % [facility] Comment: Nonsmokers: 0.5-1.5% COHB Smokers: Variable, but usually less than 10% Toxic: 20-30% COHB Lethal: Greater than 60% COHB METHB Art 0.3 <=1.5 % [facility] Na Whole Blood 129 (L) 135 - 145 mmol/L [facility] K Whole Blood 4.7 3.5 - 5.0 mmol/L [facility] Comment: Please note: Patients with WBC >100,000 may have falsely elevated Potassium levels. Contact the Clinical Chemistry L aboratory if there are any questions. ICa Whole Blood 0.98 (L) 1.15 - 1.33 mmol/L [facility] Comment: Note: ??Total bilirubin higher than 20 m g/dL may lead to falsely low ionized calcium. CL Whole Blood 104 98 - 107 mmol/L [facility] Gluc Whole Bld 231 (H) 65 - 199 mg/dL [facility] Comment: Diabetes: >=200 mg/dL plus symp toms. Lactate WB 2.1 0.5 - 2.2 mmol/L [facility] Specimen Anatomical Collection Method Collection Time Receive d Time (Source) Location / / Volume Laterality Blood 03/30/2022 12:05 03/30/2022 PM EDT 12:05 PM EDT Abdulkadir Raya MD CHEMISTRY ORDERABLES Performing Organization Address City/State/[place] [address] Prepare cryoprecipitate (03/30/2022 11:45 AM EDT) P athologist Signature Dispensed? Yes [facility] Specimen Anatomical Collection Method Collection Time Receive d Time (Source) Location / / Volume Laterality Blood 03/30/2022 11:45 03/30/2022 AM EDT 11:45 AM EDT Abdulkadir Raya MD BLOOD BANK ORDERABLES Performing Organization Address City/State/[place] [address] Prepare Platelets, Apheresis (03/30/2022 11:45 AM EDT) P athologist Signature Dispensed? Yes [facility] Specimen Anatomical Collection Method Collection Time Receive d Time (Source) Location / / Volume Laterality Blood 03/30/2022 11:45 03/30/2022 AM EDT 11:45 AM EDT Abdulkadir Raya MD BLOOD BANK ORDERABLES Performing Organization Address City/State/[place] [address] (ABNORMAL) BLOOD GAS 2 ARTERIAL (03/30/2022 11:32 AM EDT) Analysis Performed At Patho logist Time Signature pH Art 7.42 7.35 - [facility] 7.45 [facility] pCO2 Art 36 35 - 45 [facility] mmHg [facility] pO2 Art 629 (H) 85 - 104 [facility] LABORATORY HCO3 Art 22.9 20.0 - [facility] 26.0 [facility] mmol/L [facility] BE Art -1.6 -3.0 - 3.0 [facility] mmol/L [facility] Hgb Blood Gas 9.7 (L) 11.7 - [facility] 15.5 g/dL [facility] O2HB Art 99.1 (H) 94.0 - [facility] 97.0 % [facility] COHB Art 0.2 % [facility] Comment: Nonsmokers: 0.5-1.5% COHB Smokers: Variable, but usually less than 10% Toxic: 20-30% COHB Lethal: Greater than 60% COHB METHB Art 0.3 <=1.5 % [facility] Na Whole Blood 130 (L) 135 - 145 mmol/L [facility] K Whole Blood 5.2 (H) 3.5 - 5.0 mmol/L [facility] Comment: Please note: Patients with WBC >100,000 may have falsely elevated Potassium levels. Contact the Clinical Chemistry L aboratory if there are any questions. ICa Whole Blood 0.99 (L) 1.15 - 1.33 mmol/L [facility] Comment: Note: ??Total bilirubin higher than 20 m g/dL may lead to falsely low ionized calcium. CL Whole Blood 103 98 - 107 mmol/L [facility] Gluc Whole Bld 240 (H) 65 - 199 mg/dL [facility] Comment: Diabetes: >=200 mg/dL plus symp toms. Lactate WB 1.8 0.5 - 2.2 mmol/L [facility] Specimen Anatomical Collection Method Collection Time Receive d Time (Source) Location / / Volume Laterality Blood 03/30/2022 11:32 03/30/2022 AM EDT 11:32 AM EDT Abdulkadir Raya MD CHEMISTRY ORDERABLES Performing Organization Address City/State/[place] [address] (ABNORMAL) BLOOD GAS 2 VENOUS (03/30/2022 10:55 AM EDT) P athologist Signature pH All 7.35 7.32 - [facility] 7.42 [facility] pCO2 All 41 41 - 51 [facility] LABORATORY pO2 All 88 (H) 25 - 40 [facility] LABORATORY HCO3 All 22.4 mmol/L [facility] BE All -3.1 mmol/L [facility] Hgb Blood Gas 9.0 (L) 11.7 - [facility] 15.5 g/dL [facility] O2HB All 94.5 % [facility] COHB All 0.8 % [facility] Comment: Nonsmokers: 0.5-1.5% COHB Smokers: Variable, but usually less than 10% Toxic: 20-30% COHB Lethal: Greater than 60% COHB METHB All 0.3 <=1.5 % [facility] Na Whole Blood 129 (L) 135 - 145 mmol/L [facility] K Whole Blood 5.8 (H) 3.5 - 5.0 mmol/L [facility] Comment: Please note: Patients with WBC >100,000 may have falsely elevated Potassium levels. Contact the Clinical Chemistry L aboratory if there are any questions. ICa Whole Blood 0.95 (L) 1.15 - 1.33 mmol/L [facility] Comment: Note: ??Total bilirubin higher than 20 m g/dL may lead to falsely low ionized calcium. CL Whole Blood 101 98 - 107 mmol/L [facility] Gluc Whole Bld 229 (H) 65 - 199 mg/dL [facility] Comment: Diabetes: >=200 mg/dL plus symp toms Lactate WB 1.9 0.5 - 2.2 mmol/L [facility] BGas Source Venous [facility] Specimen Anatomical Collection Method Collection Time Receive d Time (Source) Location / / Volume Laterality Blood 03/30/2022 10:55 03/30/2022 AM EDT 10:55 AM EDT Abdulkadir Raya MD CHEMISTRY ORDERABLES Performing Organization Address City/State/[place] [address] (ABNORMAL) BLOOD GAS 2 ARTERIAL (03/30/2022 10:53 AM EDT) Analysis Performed At Patho logist Time Signature pH Art 7.38 7.35 - [facility] 7.45 [facility] pCO2 Art 40 35 - 45 [facility] LABORATORY pO2 Art 612 (H) 85 - 104 [facility] LABORATORY HCO3 Art 23.1 20.0 - [facility] 26.0 [facility] mmol/LDS [facility]OS[facility] BE Art -1.9 -3.0 - 3.0 [facility] mmol/L [facility] Hgb Blood Gas 9.0 (L) 11.7 - [facility] 15.5 g/dL [facility] O2HB Art 98.9 (H) 94.0 - [facility] 97.0 % [facility] COHB Art 0.5 % [facility] Comment: Nonsmokers: 0.5-1.5% COHB Smokers: Variable, but usually less than 10% Toxic: 20-30% COHB Lethal: Greater than 60% COHB METHB Art 0.3 <=1.5 % [facility] Na Whole Blood 129 (L) 135 - 145 mmol/L [facility] K Whole Blood 5.9 (H) 3.5 - 5.0 mmol/L [facility] Comment: Please note: Patients with WBC >100,000 may have falsely elevated Potassium levels. Contact the Clinical Chemistry L aboratory if there are any questions. ICa Whole Blood 0.94 (L) 1.15 - 1.33 mmol/L [facility] Comment: Note: ??Total bilirubin higher than 20 m g/dL may lead to falsely low ionized calcium. CL Whole Blood 102 98 - 107 mmol/L [facility] Gluc Whole Bld 229 (H) 65 - 199 mg/dL [facility] Comment: Diabetes: >=200 mg/dL plus symp toms. Lactate WB 2.0 0.5 - 2.2 mmol/L [facility] Specimen Anatomical Collection Method Collection Time Receive d Time (Source) Location / / Volume Laterality Blood 03/30/2022 10:53 03/30/2022 AM EDT 10:53 AM EDT Abdulkadir Raya MD CHEMISTRY ORDERABLES Performing Organization Address City/State/[place] [address] Surgical Pathology Report (03/30/2022 10:52 AM EDT) Component Value Ref Test Analysis Performed At [facility] gist Range Method Time Signature Surgical [id number] ? Location: CVCC; CV30; A [facility] Report The signing pathologist has (i) examined the relevant preparation(s) for the [facility] specimen(s) and (ii) rendered or confirmed the diagnosis(es) . HOSPITAL LABORATORY . ?Surgic al Pathology DIAGNOSIS Aortic valve leaflets, excision: Valve leaflets with myxoid degeneration, nodular fibrosis an d dystrophic calcifications. Electronically signed by: ?[place]ia HENLEY, Erinn Bhagat Verified: ??04/01/2022 17:11 ??Pathologist Performed at: ??-[facility] Dept. [place]ology, [place], [place] SPECIMEN(S) SUBMITTED A - Aortic Valve [...] Sections Processing Blocks submitted for decalcification: A1. [employer] sections in 1 cassette labeled A1. ??sns Specimen (Source) Anatomical Collection Method Collection Time Re ceived Time Location / / Volume Laterality 03/30/2022 10:52 AM EDT Abdulkadir Raya MD PATHOLOGY/CYTOLOGY ORDERABLE S Performing Organization Address City/[facility]/[place] [address] Specimen to Pathology (03/30/2022 10:52 AM EDT) Specimen Anatomical Collection Method Collection Time Receive d Time (Source) Location / / Volume Laterality AP Specimen 03/30/2022 10:52 03/30/2022 AM EDT 10:52 AM EDT Narrative [facility] - 03/30/2022 10:52 AM EDT Specimen requisition ordered. ??Separate Pathology report to follow Abdulkadir Raya MD PATHOLOGY/CYTOLOGY ORDERABLE S Performing Organization Address City/[facility]/[place] [address] (ABNORMAL) BLOOD GAS 2 ARTERIAL (03/30/2022 10:33 AM EDT) Analysis Performed At Patho logist Time Signature pH Art 7.35 7.35 - [facility] 7.45 [facility] pCO2 Art 42 35 - 45 [facility] mmHg [facility] pO2 Art 206 (H) 85 - 104 [facility] mmHg [facility] HCO3 Art 22.8 20.0 - [facility] 26.0 [facility] mmol/L [facility] BE Art -2.8 -3.0 - 3.0 [facility] mmol/L [facility] Hgb Blood Gas 8.7 (L) 11.7 - [facility] 15.5 g/dL [facility] O2HB Art 97.9 (H) 94.0 - [facility] 97.0 % [facility] COHB Art 1.3 % [facility] Comment: Nonsmokers: 0.5-1.5% COHB Smokers: Variable, but usually less than 10% Toxic: 20-30% COHB Lethal: Greater than 60% COHB METHB Art 0.3 <=1.5 % [facility] Na Whole Blood 128 (L) 135 - 145 mmol/L [facility] K Whole Blood 6.4 (Critical) 3.5 - 5.0 mmol/L [facility] Comment: Please note: Patients with WBC >100,000 may have falsely elevated Potassium levels. Contact the Clinical Chemistry L aboratory if there are any questions. ICa Whole Blood 0.83 (Critical) 1.15 - 1.33 mmol/L [facility] Comment: Note: ??Total bilirubin higher than 20 m g/dL may lead to falsely low ionized calcium. CL Whole Blood 101 98 - 107 mmol/L [facility] Gluc Whole Bld 216 (H) 65 - 199 mg/dL [facility] Comment: Diabetes: >=200 mg/dL plus symp toms. Lactate WB 1.8 0.5 - 2.2 mmol/L [facility] Specimen Anatomical Collection Method Collection Time Receive d Time (Source) Location / / Volume Laterality Blood 03/30/2022 10:33 03/30/2022 AM EDT 10:33 AM EDT Abdulkadir Raya MD CHEMISTRY ORDERABLES Performing Organization Address City/State/[place] [address] (ABNORMAL) BLOOD GAS 2 VENOUS (03/30/2022 10:24 AM EDT) [facility] gist Method Time Signature pH All 7.27 7.32 - [facility] (Critical) 7.42 [facility] pCO2 All 45 41 - 51 [facility] LABORATORY pO2 All 62 (H) 25 - 40 [facility] LABORATORY HCO3 All 20.3 mmol/L [facility] BE All -6.6 mmol/L [facility] Hgb Blood Gas 9.4 (L) 11.7 - [facility] 15.5 g/dL [facility] O2HB All 86.6 % [facility] COHB All 1.3 % [facility] Comment: Nonsmokers: 0.5-1.5% COHB Smokers: Variable, but usually less than 10% Toxic: 20-30% COHB Lethal: Greater than 60% COHB METHB All 0.3 <=1.5 % [facility] Na Whole Blood 129 (L) 135 - 145 mmol/L [facility] K Whole Blood 5.0 3.5 - 5.0 mmol/L [facility] Comment: Please note: Patients with WBC >100,000 may have falsely elevated Potassium levels. Contact the Clinical Chemistry L aboratory if there are any questions. ICa Whole Blood 1.00 (L) 1.15 - 1.33 mmol/L [facility] Comment: Note: ??Total bilirubin higher than 20 m g/dL may lead to falsely low ionized calcium. CL Whole Blood 100 98 - 107 mmol/L [facility] Gluc Whole Bld 140 65 - 199 mg/dL [facility] Comment: Diabetes: >=200 mg/dL plus symp toms Lactate WB 1.2 0.5 - 2.2 mmol/L [facility] BGas Source Venous [facility] Specimen Anatomical Collection Method Collection Time Receive d Time (Source) Location / / Volume Laterality Blood 03/30/2022 10:24 03/30/2022 AM EDT 10:24 AM EDT Abdulkadir Raya MD CHEMISTRY ORDERABLES Performing Organization Address City/State/ZIP Code Phon e Number [facility] [place] [address] HOSPITAL [address] Drive (ABNORMAL) BLOOD GAS 2 ARTERIAL (03/30/2022 10:22 AM EDT) Analysis Performed At Patho logist Time Signature pH Art 7.32 (L) 7.35 - [facility] 7.45 [facility] pCO2 Art 43 35 - 45 [facility] LABORATORY pO2 Art 517 (H) 85 - 104 Critical access hospital HOSPITAL LABORATORY HCO3 Art 21.6 20.0 - [facility] 26.0 [facility] mmol/L [facility] BE Art -4.6 (L) -3.0 - 3.0 [facility] mmol/L [facility] Hgb Blood Gas 9.3 (L) 11.7 - [facility] 15.5 g/dL [facility] O2HB Art 98.9 (H) 94.0 - [facility] 97.0 % [facility] COHB Art 0.5 % [facility] Comment: Nonsmokers: 0.5-1.5% COHB Smokers: Variable, but usually less than 10% Toxic: 20-30% COHB Lethal: Greater than 60% COHB METHB Art 0.3 <=1.5 % [facility] Na Whole Blood 128 (L) 135 - 145 mmol/L [facility] K Whole Blood 5.1 (H) 3.5 - 5.0 mmol/L [facility] Comment: Please note: Patients with WBC >100,000 may have falsely elevated Potassium levels. Contact the Clinical Chemistry L aboratory if there are any questions. ICa Whole Blood 0.96 (L) 1.15 - 1.33 mmol/L [facility] Comment: Note: ??Total bilirubin higher than 20 m g/dL may lead to falsely low ionized calcium. CL Whole Blood 100 98 - 107 mmol/L [facility] Gluc Whole Bld 146 65 - 199 mg/dL [facility] Comment: Diabetes: >=200 mg/dL plus symp toms. Lactate WB 1.3 0.5 - 2.2 mmol/L [facility] Specimen Anatomical Collection Method Collection Time Receive d Time (Source) Location / / Volume Laterality Blood 03/30/2022 10:22 03/30/2022 AM EDT 10:22 AM EDT Abdulkadir Raya MD CHEMISTRY ORDERABLES Performing Organization Address City/State/[place] [address] Prepare Coag Factors (Non-Hemophilia) (03/30/2022 9:50 AM EDT) P athologist Signature Dispensed? Yes [facility] Specimen Anatomical Collection Method Collection Time Receive d Time (Source) Location / / Volume Laterality Blood 03/30/2022 9:50 AM 9:46 EDT AM EDT Abdulkadir Raya MD BLOOD BANK ORDERABLES Performing Organization Address City/State/[place] [address] (ABNORMAL) BLOOD GAS 2 ARTERIAL (03/30/2022 8:27 AM EDT) Analysis Performed At Patho logist Time Signature pH Art 7.31 (L) 7.35 - [facility] 7.45 [facility] pCO2 Art 46 (H) 35 - 45 [facility] LABORATORY pO2 Art 154 (H) 85 - 104 [facility] LABORATORY HCO3 Art 22.5 20.0 - [facility] 26.0 [facility] mmol/L [facility] BE Art -3.8 (L) -3.0 - 3.0 [facility] mmol/L [facility] Hgb Blood Gas 13.3 11.7 - [facility] 15.5 g/dL [facility] O2HB Art 97.6 (H) 94.0 - [facility] 97.0 % [facility] COHB Art 0.9 % [facility] Comment: Nonsmokers: 0.5-1.5% COHB Smokers: Variable, but usually less than 10% Toxic: 20-30% COHB Lethal: Greater than 60% COHB METHB Art 0.3 <=1.5 % [facility] Na Whole Blood 139 135 - 145 mmol/L [facility] K Whole Blood 4.7 3.5 - 5.0 mmol/L [facility] Comment: Please note: Patients with WBC >100,000 may have falsely elevated Potassium levels. Contact the Clinical Chemistry L aboratory if there are any questions. ICa Whole Blood 1.16 1.15 - 1.33 mmol/L [facility] Comment: Note: ??Total bilirubin higher than 20 m g/dL may lead to falsely low ionized calcium. CL Whole Blood 103 98 - 107 mmol/L [facility] Gluc Whole Bld 136 65 - 199 mg/dL [facility] Comment: Diabetes: >=200 mg/dL plus symp toms. Lactate WB 1.5 0.5 - 2.2 mmol/L [facility] FIO2 Art 75 % [facility] Flow Art 1.0 LPM [facility] PF Ratio Art 205 [facility] Temp Art 36.8 Celsius [facility] Specimen Anatomical Collection Method Collection Time Receive d Time (Source) Location / / Volume Laterality Blood 03/30/2022 8:27 AM 8:27 EDT AM EDT Abdulkadir Raya MD CHEMISTRY ORDERABLES Performing Organization Address City/State/[place] [address] Transesophageal Echo/OR (03/30/2022 7:13 AM EDT) Anatomical Region Laterality Modality Cardiac Other Specimen (Source) Anatomical Collection Method Collection Time Re ceived Time Location / / Volume Laterality 03/30/2022 7:13 AM EDT Narrative 03/30/2022 5:05 PM EDT ? Version: 1 ? [facility] ? [address] ?[place], [place] ?? [address] ?Voice: ?Fax: Name: MARCELLE ALBARRAN ?Study Date: 03/30/2022, 7: 13 AM ?Patient Location: SDP : 1950 (MM/DD/YYYY) ? Age: 72 Years Gender: Female Ordering Physician: [id number]^IRIBARNE^ABDULKADIR^^^^^^EPIC^^^^P ROVID Referring Physician: [id number]^IRIBARNE^ABDULKADIR^^^^^^EPIC^^^^P ROVID ? Conclusions Preoperative JAVY: 1. There [...] be different from the original. Version: [address] [place] [address] Voice: Fax: Name: MARCELLE ALBARRAN Study Date: 2021, 7: 13 AM Patient Location: [facility] : 1950 (//YYYY) Age: 72 Years Gender: Female Ordering Physician: [id number]^ELVER^ABDULKADIR^^^^^^EPIC^^^^P HEMANTHD Referring Physician: [id number]^ELVER^ABDULKADIR^^^^^^EPIC^^^^P DIAMOND Conclusions Preoperative JAVY: 1. There is severe [...] AM EDT) P athologist Signature Dispensed? Yes [facility] Specimen Anatomical Collection Method Collection Time Receive d Time (Source) Location / / Volume Laterality Blood 03/30/2022 6:35 AM 2 6:32 EDT AM EDT Abdulkadir Raya MD BLOOD BANK ORDERABLES Performing Organization Address City/State/ZIP Code Phon e Number [address] POCT Glucose (03/30/2022 6:28 AM EDT) P athologist Signature POC Glucose 127 65 - 199 [facility] mg/dL [facility] Comment: Supplemental ranges: <140 mg/dL before meals <180 mg/dL all other times of the day Specimen Anatomical Collection Method Collection Time Receive d Time (Source) Location / / Volume Laterality Blood 03/30/2022 6:28 AM 2 6:28 EDT AM EDT Abdulkadir Raya MD POINT OF CARE TEST ORDERABLE S Performing Organization Address City/State/[place] [address] SCAN DOC: IMPLANTABLE DEVICES (03/30/2022 [...] ORDR/RSLT documented in this encounter Visit Diagnoses Not on filedocumented in this encounter Admitting Diagnoses Diagnosis CAD (coronary artery disease) Coronary atherosclerosis of unspecified type of vessel, [place] or graft documented in this encounter Administered Medications Inactive Administered Medications - up to 3 most recent administrations Medication Order MAR Action Action Date Dose Rate Site acetaminophen (Tylenol) tablet Given 04/08/2022 11:58 AM EDT 1,0 00 mg 1,000 mg 1,000 mg, Oral, EVERY 6 [...] Given 04/08/2022 12:06 AM EDT 1,000 mg AMIOdarone (Paceron) tablet 400 mg Given 04/08/2022 [...] on Wed04/08/22 at 0900, Until Discontinued, Routine benzonatate (Tessalon) capsule 100 mg Given 04/08/2022 8:50 AM EDT 100 mg 100 mg, Oral, 3 TIMES DAILY, First dose on Wed04/05/22 at 0930, Until Discontinued, DO NOT CRUSH OR OPEN, Routine Given 04/07/2022 8:40 PM EDT 100 mg Given 04/07/2022 3:27 PM EDT 100 mg calcium chloride 10% (100 mg/mL) injecti on Given 03/30/2022 2:02 PM EDT 1 g ONCE PRN, Starting on Wed03/30/22 at 1402, Until Wed03/30/22 at 1614, Intra-Operative (Intra-Procedure), Routine cardioplegic solution (Plegisol) New Bag 03/30/2022 10:30 AM EDT 2 67 mLs induction solution CONTINUOUS PRN, Starting on Wed03/30/22 at 1030, Until Wed03/30/22 at 1030, Intra-Operative (Intra-Procedure) cardioplegic solution no.20 (Maintenance New Bag 03/30/2022 1:37 P M EDT 82 mLs 4:1) solution CONTINUOUS PRN, Starting on Wed03/30/22 at 1046, Until Wed03/30/22 at 1337, Intra-Operative (Intra-Procedure) New Bag 03/30/2022 1:35 PM EDT 735 mLs cardioplegic solution no.21 (Reperfusate New Bag 03/30/2022 2: 00 PM EDT 149 mLs 4:1) solution CONTINUOUS PRN, Starting on Wed03/30/22 at 1400, Until Wed03/30/22 at 1400, Intra-Operative (Intra-Procedure) citalopram (CeleXA) tablet 20 mg Given 04/08/2022 [...] on Wed04/08/22 at 0900, Until Discontinued, Routine dextromethorphan (Robitussin) capsule 15 mg 15 mg, Oral, EVERY 4 HOURS PRN, Starting on Wed04/05/22 at 0833, Until Wed04/08/22 at 1504, Cough, Routine dextrose 10% infusion 250 mL, at 1,000 [...] for the duration of the active insulin. electrolyte replacement solution (pH New Bag 03/30/2022 8:00 AM ED T 2,000 mLs 7.4) (Normosol-R, Plasmalyte-A) infusion CONTINUOUS PRN, Starting on Wed03/30/22 at 0800, Until Wed03/30/22 at 1614, Intra-Operative (Intra-Procedure) furosemide (Lasix) (10 mg/mL) injection 40 mg [...] 8:46 AM EDT 600 mg heparin (porcine) (1,000 units/mL) Given 03/30/2022 1:11 PM EDT 5,000 Units injection ONCE PRN, Starting on Wed03/30/22 at 1036, Until Wed03/30/22 at 1614, Intra-Operative (Intra-Procedure), Routine Given 03/30/2022 12:13 PM EDT 5,000 Units Given 03/30/2022 11:44 AM EDT 5,000 Units insulin lispro (HumaLOG;Admelog) (100 Given 04/08/2022 [...] Given 04/07/2022 4:32 PM EDT 1 Units ipratropium-albuteroL (Duoneb) 0.5 mg-3 mg(2.5 mg base)/3 [...] 0500, Until Discontinued, Remove lidocaine 5% patch lidocaine (pf) (Xylocaine) (20 mg/mL) 2% Given 03/30/2022 2:02 P M EDT 200 mg injection syringe ONCE PRN, Starting on Wed03/30/22 at 1402, Until Wed03/30/22 at 1614, Intra-Operative (Intra-Procedure), Routine magnesium hydroxide (Milk of Magnesia) (240 Given 04/03/2022 8:07 AM EDT 10 mLs mg/mL) oral liquid 10 mL 10 mL, Oral, DAILY, First dose on Wed04/01/22 at 0900, Until Discontinued, Post-op day 2. Do not use with renal insufficiency., Routine Given 04/02/2022 8:07 AM EDT 10 mLs Given 04/01/2022 8:36 AM EDT 10 mLs magnesium sulfate (4 mEq/mL) (50 %) inje ction Given 03/30/2022 2:02 PM EDT 2 g ONCE PRN, Starting on Wed03/30/22 at 1402, Until Wed03/30/22 at 1614, Intra-Operative (Intra-Procedure), Routine mannitoL (Osmitrol) 20 % infusion New Bag 03/30/2022 1:57 PM EDT 50 g CONTINUOUS PRN, Starting on Wed03/30/22 at 1357, Until Wed03/30/22 at 1357, Intra-Operative (Intra-Procedure) metoprolol tartrate (Lopressor) tablet 12.5 Given 03/2022 8:51 AM EDT 12.5 mg mg 12.5 mg, Oral, EVERY 12 HOURS SCHEDULED (2 times per day), First dose on Wed04/07/22 at 0900, Until Discontinued, Hold for SBP<90 or HR<60, Routine Given 04/07/2022 8:40 PM EDT 12.5 mg Given 04/07/2022 8:44 AM EDT 12.5 mg miconazole (Micotin) 2 % powder Given 04/08/2022 8:55 AM EDT Topical (Top), 2 TIMES DAILY, First dose on Wed03/30/22 at 2100, Until Discontinued Given 04/07/2022 8:40 PM EDT Given 04/07/2022 8:49 AM EDT ondansetron (pf) (Zofran) (2 mg/mL) injection 4 [...] 04/01/2022 8:00 PM EDT 5 mg pantoprazole EC (Protonix) tablet 40 mg Given 04/08/2022 8:51 AM EDT 40 mg 40 mg, Oral, DAILY, First dose on Wed03/30/22 at 1730, Until Discontinued, DO NOT CRUSH OR OPEN If unable to take PO, may give IV, Routine Given 04/07/2022 8:46 AM EDT 40 mg Given 04/06/2022 8:56 AM EDT 40 mg senna-docusate (Pericolace) 8.6-50 mg per Given 2021 [...] Given 04/07/2022 8:49 AM EDT 5 mLs thrombin (human)-fibrin-calcium Given 03/30/2022 1:21 PM 4 mLs 19- Surgical Site (VistaSeal) topical syringe EDT ONCE PRN, Starting on Wed03/30/22 at 1321, Until Wed03/30/22 at 1614, Intra-Operative (Intra-Procedure), Routine vancomycin (Vancocin) injection Given 03/30/2022 7:30 AM EDT 4 g ONCE PRN, Starting on Wed03/30/22 at 0730, Until Wed03/30/22 at 1614, Intra-Operative (Intra-Procedure), Routine verapamiL (Isoptin) (2.5 mg/mL) injectio n Given 03/30/2022 7:30 AM EDT 5 mg ONCE PRN, Starting on Wed03/30/22 at 0730, Until Wed03/30/22 at 1614, Administer over 2 Minutes, Intra-Operative (Intra-Procedure) documented in this encounter Active and Recently Administered Medications Times are shown in EDT. Scheduled Medication Order 04/06/2022 04/07/2022 04/08/2022 acetaminophen (Tylenol) tablet 1,000 mg 0010 (Given - Provider: Pablo Tran, KALIE)0550 (Given - Provider: Pablo Tran, KALIE)1141 (Given - Provider: Hanny Ansari RN)1714 (Given - Provider: García Douglas RN) 0016 (Given - Provider: Pablo Tran, KALIE)0604 (Given - Provider: Pablo Tran, RN)1235 (Given - Provider: Erin Celeste, KALIE)1808 (Given - Provider: Erin Celeste RN) 0006 (Given - Provider: Pablo Tran RN)0606 (Given - Provider: Pablo Tran RN)1158 (Given - Provider: Erin Celeste RN) 1,000 mg, Oral, EVERY 6 HOURS SCHEDULED, [...] Celeste RN) 0850 (Giv en - Provider: Erin Celeste RN) 400 mg, Oral, DAILY, First [...] Hanny Ansari RN)1636 (Given - Provider: García Douglas RN)2136 (Given - Provider: Pablo Tran RN) 0844 (Given - Provider: rEin Celeste RN)1527 (Given - Provider: Erin Celeste RN)2040 (Given - Provider: Pablo Tran RN) 0850 (Given - Provider: Erin Celeste [...] Hanny Ansari RN)1636 (Given - Provider: García Douglas RN) 0847 (Given - Provider: Erin Celeste [...] Erin Celeste RN)2039 (Given - Provider: Pablo Tran, KALIE) 0850 (Given - Provider: Erin Celeste RN) 600 mg, Oral, EVERY 12 HOURS, First dose on Wed04/05/22 at 0900, Until Discontinued, DO NOT CRUSH OR OPEN, Routine heparin (porcine) (5,000 units/1 mL) sub cutaneous injection 5,000 Units (CANCELED) 0855 (Given - Provider: Hanny Ansari RN)2135 (Given - Provider: Pablo Tran, KALIE) 0846 (Given - Provider: Erin Celeste RN)2039 (Given - Provider: Pablo Tran, KALIE) 5,000 Units, Subcutaneous, EVERY 12 HOUR S [...] (Lidoderm) 5% patch 2 patch(Linked Group 2) 1745 (Not Given - Provider: García Douglas RN - Reason: Patient/family refused) 1745 (Not Given - Provider: Erin Celeste RN [...] mg 0844 (Given - Provider: Erin Celeste RN)2039 (Given - Provider: Pablo Tran, KALIE) 0851 (Given - Provider: Erin Celeste RN) 12.5 mg, Oral, EVERY 12 HOURS SCHEDULED (2 times per day), First dose on Wed04/07/22 at 0900, Until Discontinued, Hold for SBP<90 or HR<60, Routine miconazole (Micotin) 2 % powder 0855 (Given - Provider : Hanny Ansari RN)2135 (Given - Provider: Pablo Tran RN) 0849 (Given - Provider: Erin Celeste RN)2039 (Given - Provider: Pablo Tran RN) 0855 (Given - Provider: Erin Celeste RN) Topical (Top), 2 TIMES DAILY, First dose on Wed03/30/22 at 2100, Until Discontinued pantoprazole EC (Protonix) tablet 40 mg 0856 (Given - Provider: Hanny Ansari RN) 0846 (Given - Provider: Erin Celeste RN) 0851 (Giv en - Provider: Erin Celeste RN) 40 mg, Oral, DAILY, First dose on Wed at 1730, Until Discontinued, DO NOT CRUSH OR OPEN If unable to take PO, may give IV, Routine potassium chloride ER (K-Dur/Klor-Con) tablet 20 mEq (COMPLETED) 0738 (Given - Provider: Erin Celeste RN) 20 mEq, Oral, ONCE, 1 dose, On Wed04/08/22 at 0730, Routine senna-docusate (Pericolace) 8.6-50 mg per tablet 2 tab let 2135 (Given - Provider: Pablo Tran, KALIE) 2039 (Given - Provider: Pablo Tran, KALIE) 2 tablet, Oral, DAILY, First dose on Wed03/31/22 at 2100, Until Discontinued, Post-op day 1, Routine simvastatin (Zocor) tablet 20 mg 2135 (Given - Provider: Chente Tran RN) 2039 (Given - Provider: Pablo Tran, KALIE) 20 mg, Oral, NIGHTLY, First dose on Wed03/30/22 at 2100, Until Discontinued, Routine sodium chloride 0.9 % (flush) (BD PosiFlush Normal Saline 0. 9) flush 5 mL 0849 (Given - Provider: Erin Celeste, KALIE)1631 (Given - Provider: Erin Celeste RN) 0130 (Not Given - Provider: Pablo pierce RN - Reason: Order parameters not met)0858 (Given - Provider: Erin Celeste, KALIE) 5 mL, Intravenous, EVERY 8 HOURS, First dose on Wed04/07/22 at 0930, Until Discontinued, Routine Continuous Medication Order 04/06/2022 04/07/2022 04/08/2022 AMIOdarone (Nexterone) (1.8 mg/mL) in de xtrose (iso-osmotic) infusion (CANCELED) 0000 (Rate/Dose Verify - Provider: Pablo Tran RN)0200 (Rate/Dose Verify - Provider: Pablo Tran RN)0400 (Rate/Dose Verify - Provider: Pablo Tran RN)0600 (Rate/Dose Verify - Provider: Pablo Tran RN) 0.5-1 mg/min (16.6667-33.3333 mL/hr, rou nded to 16.7-33.3 mL/hr), Intravenous, CONTINUOUS, Starting on Wed04/05/22 at 0215, Until Wed04/06/22 at 0900, 1 mg/min for 6 hrs, then 0.5 mg/min for 18 hrs. After 0800 (Rate/Dose Verify - Provider: Hanny Ansari, KALIE)0900 (Stopped - Provider: Hanny Ansari RN) first 24 hours, order maintenance dose [...] (CANCELED) 0433 (New Bag - Provider: Pablo Tran, RN)0533 (Stopped - Provider: Pablo Tran, RN)0550 (New Bag - Provider: Pablo Tran, KALIE)0650 (Stopped - Provider: Hanny Ansari RN) 20 [...]
Routine documented in this encounter Care Teams Epic Director Relationship Specialty Start Date End Date Harshal Godfrey MD PCP - General Family Medicine 02/18/22 [address] [place] [address] documented as of this encounter
--- OUTSIDE RECORDS SUMMARY | 2022-08-21 01:38 | XMS_ITS | Encounter Summary ---
:1950 Author Organization [facility] Address [address] [place] [address] Care Team Providers Name Role Phone Harshal Godfrey MD Primary Care Provider [phone] Encounter Details Date Type Department Care Team Description 03/23/2022 Clinical Support Same Day at [facility] Aortic valve stenosis, [facility] etiology of cardiac [place] [address] unspecified [phone] Social History Tobacco Use Types Packs/Day Years [...] Sign Reading Time Taken Comments Blood Pressure - - Pulse 89 03/23/2022 11:41 AM EDT Temperature - - Respiratory Rate - - Oxygen Saturation 93% 03/23/2022 11:41 AM EDT Inhaled Oxygen Concentration - - Weight - - Height - - Body Mass Index - - documented in this encounter Progress Notes Roula Eng RN - 03/23/2022 11:30 AM EDT PAT questionnaire reviewed with patient and daughter while in Pre Admission testing. Patient reportsno problems with anesthesia in the past. Pre-operative instruction booklet reviewed with patient. Reviewed importance of pain control and cough and deep breathing exercise during the post-operative period. Instructed patient on use of Hibiclens soap to shower with the night before surgery or the morning of surgery. Cardiac packet given to patient. Pt verbalizes good understanding of all information reviewed. PLAN Testing: Labs, T+S and urine done in PAT. Patient to 3L for chest x ray. Special medication instructions: n/a Procedure date: 03/26/22 - Dr. Raya documented in this encounter Plan of Treatment Upcoming Encounters Date Type Specialty Care Team Description 08/21/2022 Scheduled View Only Hematology and Dameon Hernandez MD [facility] [place] [address] Oncology Nikky Pak [address] [place] [address] 08/21/2022 TH Visit (TeleHealth) Hematology and Reddy Hernandez Oncology [facility] [address] [place] [address] (Wo rk) 08/21/2022 Infusion Hematology and Oncology 08/28/2022 Office Visit Hematology and Reddy Hernandez Oncology [facility] [address] [place], [place] [address] (Wo rk) 08/28/2022 Infusion Hematology and Oncology 09/11/2022 Office Visit Hematology and Reddy Hernandez MD [facility] [place] [address] [address] HEMATOLOGY AND [place], [place] [address] 09/11/2022 Infusion Hematology and Oncology 09/18/2022 Office Visit Hematology and Nikky Pak, Oncology [address] HEMATOLOGY AND [place], [place] [address] (Wo rk) 09/18/2022 Infusion Hematology and Oncology 03/10/2023 Office Visit Cardiology Ofelia Rubalcava MD [facility] [address] [place], [place] [address] (Wo rk) documented as of this encounter Procedures Procedure Name Priority Date/Time Associated Diagnosis Comme nts URINE HOLD Routine 03/23/2022 12:08 Results for this PM EDT procedure are i n the results section. HC UA W/OUT Routine 03/23/2022 12:08 Aortic valve Results for this MICROSCOPIC PM EDT stenosis, etiology procedure are in of cardiac valve the results disease unspecified section. TYPE AND SCREEN Routine 03/23/2022 11:57 Results for this VALIDITY AM EDT procedure are i n the results section. ABORH RECHECK STATUS Routine 03/23/2022 11:57 Res ults for this AM EDT procedure are i n the results section. SCAN, PERIPHERAL Routine 03/23/2022 11:57 Results for this BLOOD AM EDT procedure are i n the results section. HEMOGRAM Routine 03/23/2022 11:57 Aortic valve Results for this AM EDT stenosis, etiology procedure are in of cardiac valve the results disease unspecified section. DIFFERENTIAL, Routine 03/23/2022 11:57 Aortic valve Results fo r this AUTOMATED AM EDT stenosis, etiology procedure are in of cardiac valve the results disease unspecified section. HC ANTIBODY Routine 03/23/2022 11:57 Aortic valve DETECTION,CAPTURE-R AM EDT stenosis, etiology of cardiac valve disease unspecified ABO/RH TYPING Routine 03/23/2022 11:57 Aortic valve Results fo r this AM EDT stenosis, etiology procedure are in of cardiac valve the results disease unspecified section. HC PROTHROMBIN TIME Routine 03/23/2022 11:57 Aortic valve Resu lts for this AM EDT stenosis, etiology procedure are in of cardiac valve the results disease unspecified section. HC CBC,PLT & AUTO Routine 03/23/2022 11:57 Aortic valve DIFF AM EDT stenosis, etiology of cardiac valve disease unspecified ANTIBODY SCREEN Routine 03/23/2022 11:57 Aortic valve Results for this AM EDT stenosis, etiology procedure are in of cardiac valve the results disease unspecified section. HEPATIC FUNCTION Routine 03/23/2022 11:57 Aortic valve Results for this PANEL AM EDT stenosis, etiology procedure are in of cardiac valve the results disease unspecified section. BASIC METABOLIC Routine 03/23/2022 11:57 Aortic valve Results for this PANEL (NON-FASTING) AM EDT stenosis, etiology pr ocedure are in of cardiac valve the results disease unspecified section. documented in this encounter Results Urine Hold (03/23/2022 12:08 PM EDT) P athologist Signature Urine Hold Sample in [facility] lab. [facility] Specimen Anatomical Collection Method Collection Time Receive d Time (Source) Location / / Volume Laterality Urine Urine / Unknown 03/23/2022 12:08 03/23/20 22 PM EDT 12:26 PM EDT Abdulkadir Raya MD URINE ORDERABLES Performing Organization Address City/State/[place] [address] (ABNORMAL) Urinalysis without microscopic (03/23/2022 12:08 PM EDT) [facility] Method Time Signature Glucose UA Negative Negative [facility] mg/dL [facility] Protein UA Trace (A) Negative [facility] mg/dL [facility] Bilirubin UA Negative Negative [facility] mg/dL [facility] Comment: Clinical correlation required for positi ve Urine Bilirubin results as false positive may occur with some drugs and d rug related products. If a false positive is suspected a serum total bili adair should be considered if clinically indicated. Urobilinogen UA Normal Normal mg/dL [facility] pH UA 6.0 5.0 - 8.0 [facility] Blood UA Negative Negative mg/dL [facility] Ketones UA Negative Negative mg/dL [facility] Nitrite UA Negative Negative [facility] Leukocytes UA Moderate (A) Negative mcL [facility] Appearance UA Turbid (A) Clear [facility] Spec Maryneal UA 1.021 1.005 - 1.030 [facility] Color UA Yellow Yellow [facility] Specimen Anatomical Collection Method Collection Time Receive d Time (Source) Location / / Volume Laterality Urine 03/23/2022 12:08 03/23/2022 PM EDT 12:19 PM EDT Resulting Agency Comment Spec In Lab Abdulkadir Raya MD URINE ORDERABLES Performing Organization Address City/State/[place] [address] ABORH Recheck Status (03/23/2022 11:57 AM EDT) [facility] Method Time Signature ABORH Recheck Order Placed [facility] LABORATORY ABORH Type Complete [facility] LABORATORY Specimen Anatomical Collection Method Collection Time Receive d Time (Source) Location / / Volume Laterality Blood 03/23/2022 11:57 03/23/2022 AM EDT 12:04 PM EDT Resulting Agency Comment Spec In Lab Abdulkadir Raya MD BLOOD BANK ORDERABLES Performing Organization Address City/State/[place] [address] [facility] [address] Type and Screen Validity (03/23/2022 11:57 AM EDT) [facility] Signature T&S only valid [facility] at [facility] Comment: This Type and Screen result is only valid at the [facility] Specimen Anatomical Collection Method Collection Time Receive d Time (Source) Location / / Volume Laterality Blood 03/23/2022 11:57 03/23/2022 AM EDT 12:04 PM EDT Resulting Agency Comment Spec In Lab Abdulkadir Ryaa MD BLOOD BANK ORDERABLES Performing Organization Address City/State/ZIP Code Phon e Number [address] Scan, Peripheral Blood (03/23/2022 11:57 AM EDT) [facility] Signature Plat Estimate Increased [facility] RBC Morphology Abnormal [facility] Microcytes 1-5 /HPF [facility] Hypochromia Slight [facility] Specimen Anatomical Collection Method Collection Time Receive d Time (Source) Location / / Volume Laterality Blood 03/23/2022 11:57 03/23/2022 AM EDT 12:14 PM EDT Resulting Agency Comment Spec In Lab Abdulkadir Raya MD HEMATOLOGY ORDERABLES Performing Organization Address City/State/ZIP Code Phon e Number [place], [place] [id number] [place] [address] Antibody screen (03/23/2022 11:57 AM EDT) [facility] Signature Ab Screen Negative [facility] LABORATORY Expires at 04/02/2022 [facility] [id number] on: [facility] Comment: Corrected from 03/29/22 0:00:00 EDT [Unk nown] on 03/27/22 6:09:04 EDT by Artem Spence. Specimen Anatomical Collection Method Collection Time Receive d Time (Source) Location / / Volume Laterality Blood 03/23/2022 11:57 03/23/2022 AM EDT 12:04 PM EDT Resulting Agency Comment Spec In Lab Abdulkadir Raya MD BLOOD BANK ORDERABLES Performing Organization Address City/State/ZIP Code Phon e Number [address] ABO/Rh Typing (03/23/2022 11:57 AM EDT) P athologist Signature ABORh Type O Pos [facility] Specimen Anatomical Collection Method Collection Time Receive d Time (Source) Location / / Volume Laterality Blood 03/23/2022 11:57 03/23/2022 AM EDT 12:04 PM EDT Resulting Agency Comment Spec In Lab Abdulkadir Raya MD BLOOD BANK ORDERABLES Performing Organization Address City/[facility]/ZIP Code Phon e Number [address] (ABNORMAL) Differential, Automated (03/23/2022 11:57 AM EDT) Patholo gist Method Time Signature Neutrophils % 75.4 % [facility] Neutr Abs (ANC) 12.29 (H) 1.70 - [facility] 6.10 [facility] x10(3)/[facility] LABORATORY Lymphocytes % 13.3 % [facility] Lymphocytes Abs 2.2 0.9 - 3.2 [facility] x10(3)/[facility] LABORATORY Monocytes % 6.8 % [facility] Monocyte Abs 1.1 (H) 0.3 - 0.9 [facility] x10(3)/[facility] LABORATORY Eosinophils % 3.0 % [facility] Eosinophils Abs 0.5 (H) 0.0 - 0.4 [facility] x10(3)/[facility] LABORATORY Basophils % 0.9 % [facility] Basophils Abs 0.1 0.0 - 0.1 [facility] x10(3)/[facility] LABORATORY Immature Gran % 0.60 % [facility] Comment: Immature granulocytes(IG's)percentage an d absolute count will include metamyelocytes, myelocytes, and promyelo cytes. Blood smears from CBCs yielding IG's will be scanned manually for concor danelvia. If this scan disagrees with the automated IG or if promyelocytes are not ed, a manual differential will be performed. Zohreh Gran Abs 0.09 (H) 0.00 - 0.04 x10(3)/[facility] LABORATORY Specimen Anatomical Collection Method Collection Time Receive d Time (Source) Location / / Volume Laterality Blood 03/23/2022 11:57 03/23/2022 AM EDT 12:14 PM EDT Resulting Agency Comment Spec In Lab Abdulkadir Raya MD HEMATOLOGY ORDERABLES Performing Organization Address City/State/[place] [address] (ABNORMAL) Hemogram (03/23/2022 11:57 AM EDT) Analysis Performed At Patho logist Time Signature WBC 16.3 (H) 4.0 - 9.5 [facility] x10(3)/[facility] LABORATORY RBC 5.01 4.00 - [facility] 5.21 [facility] x10(6)/[facility] LABORATORY Hemoglobin 13.0 11.7 - [facility] 15.5 g/dL [facility] Hematocrit 44.4 35.7 - [facility] 45.8 % [facility] MCV 88.6 82.6 - [facility] 94.4 [facility] LABORATORY MCH 25.9 (L) 27.1 - [facility] 32.0 pg [facility] MCHC 29.3 (L) 31.7 - [facility] 35.0 g/dL [facility] Platelets 386 (H) 145 - 357 [facility] x10(3)/[facility] LABORATORY RDWSD 53.3 (H) 37.0 - [facility] 46.0 [facility] LABORATORY RDWCV 16.7 (H) 11.5 - [facility] 14.1 % [facility] LABORATORY MPV 9.1 7.6 - 12.9 [facility] LABORATORY nRBC % Auto 0.0 % [facility] nRBC Abs Auto 0.000 0.000 - [facility] 0.000 [facility] x10(3)/[facility] LABORATORY Specimen Anatomical Collection Method Collection Time Receive d Time (Source) Location / / Volume Laterality Blood 03/23/2022 11:57 03/23/2022 AM EDT 12:14 PM EDT Resulting Agency Comment Spec In Lab Abdulkadir Raya MD HEMATOLOGY ORDERABLES Performing Organization Address City/State/ZIP Code Phon e Number [facility] [place] [address] (ABNORMAL) Basic Metabolic Panel (non-fasting) (03/23/2022 11:57 AM EDT) P athologist Signature Glucose Lvl 102 65 - 199 [facility] mg/dL [facility] Comment: Diabetes: >=200 mg/dL plus symp toms BUN 24 (H) 8 - 18 mg/dL [facility] Creatinine 0.95 0.70 - 1.20 mg/dL [facility] Sodium 138 135 - 145 mmol/L [facility] Potassium 4.8 3.5 - 5.0 mmol/L [facility] Comment: Please note: ??Patients with WBC >100,00 0 may have falsely elevated Potassium levels. ??For accurate Potassium quantif ication in these patients send serum separator tube (gold top) for subsequent determinations. ??Contact the Clinical Chemistry Laboratory if there are any qu estions. Chloride 105 98 - 107 mmol/L [facility] CO2 18 (L) 22 - 31 mmol/L [facility] Anion Gap 15 5 - 15 mmol/L [facility] LABORATORY Calcium 9.3 8.5 - 10.5 mg/dL [facility] Estimated GFR 64 >=60 mL/min/1.73 m?? [facility] Comment: This patient's estimated GFR [...] (Source) Location / / Volume Laterality Blood 03/23/2022 11:57 03/23/2022 AM EDT 12:14 PM EDT Resulting Agency Comment Spec In Lab Abdulkadir Raya MD CHEMISTRY ORDERABLES Performing Organization Address City/[facility]/[place] [address] Hepatic Function Panel (03/23/2022 11:57 AM EDT) P athologist Signature Total Protein 7.3 6.1 - 8.0 [facility] g/dL [facility] Albumin 4.0 3.2 - 5.2 [facility] g/dL [facility] AST 20 0 - 30 [facility] unit/L [facility] ALT 16 0 - 30 [facility] unit/L [facility] Alk Phos 59 35 - 105 [facility] unit/L [facility] Total 0.3 0.2 - 1.3 [facility] Bilirubin mg/dL [facility] Bili, Direct 0.1 0.0 - 0.3 [facility] mg/dL [facility] Specimen Anatomical Collection Method Collection Time Receive d Time (Source) Location / / Volume Laterality Blood 03/23/2022 11:57 03/23/2022 AM EDT 12:14 PM EDT Resulting Agency Comment Spec In Lab Abdulkadir Raya MD CHEMISTRY ORDERABLES Performing Organization Address City/[facility]/[place] [address] (ABNORMAL) Prothrombin Time (03/23/2022 11:57 AM EDT) P athologist Signature PT 13.6 (H) 9.4 - 12.5 [facility] LABORATORY INR 1.2 [facility] Comment: An INR <2.0 indicates adequate procoagul ant [...] (Source) Location / / Volume Laterality Blood 03/23/2022 11:57 03/23/2022 AM EDT 12:14 PM EDT Resulting Agency Comment Spec In Lab Abdulkadir Raya MD HEMATOLOGY ORDERABLES Performing Organization Address City/State/ZIP Code Phon e Number [place] [id number] [address] documented in this encounter Visit Diagnoses Diagnosis Aortic valve stenosis, etiology of cardi ac valve disease unspecified Colon cancer metastasized to liver Malignant neoplasm of colon, unspecified site documented in this encounter Care Teams Machine Cleaner Relationship Specialty Start Date End Date Harshal Godfrey MD PCP - General Family Medicine 02/18/22 [address] [place] [address] documented as of this encounter
--- OUTSIDE RECORDS SUMMARY | 2022-08-21 01:38 | XMS_ITS | Encounter Summary ---
:1950 Author Organization [facility] [place] [address] Care Team Providers Name Role Phone Harshal Godfrey MD Primary Care Provider [phone] Encounter Details Date Type Department Care Team Description 03/23/2022 Telephone Public Health at [facility] [place] [address] Social History Tobacco Use Types Packs/Day [...] this encounter Miscellaneous Notes Telephone Encounter - Christin Bernstein - 03/23/2022 9:53 AM EDT 1. ASK: TRAVEL ???Have you travelled outside of [place] ([place], [place], [place], [place], [place]) in the past 14 days??? 2. ASK: EXPOSURE Have you been in contact with anyone suspected or confirmed to have COVID-19 in the past 14 days??? 3. ASK: SYMPTOMS Do you have any new or worsening symptoms on this list that are not related to another medical condition? Fever or chills ?? Cough ?? Shortness of breath or difficulty breathing ?? Fatigue ?? Muscle or body aches ?? Headache ?? Loss of taste or smell ?? Sore throat ?? Congestion or runny nose ?? Nausea or vomiting ?? Diarrhea If 'Yes' to any of the questions above Transfer patient to the Covid-19 Hotline Number ([phone]) for further instructions. If 'No' to all of the questions above Is this the first test for Covid 19 If no, please list date of previous test, result, and type of test (Molecular, Antigen, Antibody or unknown): Resides in Nursing/custodial or other residential setting No Employee or Household Member of Employee No Healthcare Worker No Telephone call placed/received to schedule Covid 19 testing with patient. Ordering provider: Abdulkadir Raya Testing Facility: Date of Testin/20 Time of Testin:05 Symptoms: pre-op Give directions to testing facility. All passengers in the vehicle MUST wear a mask. Leave dogs/petsat home or have them crated/behind a net. documented in this encounter Plan of Treatment Upcoming Encounters Date Type Specialty Care Team Description 08/21/2022 Scheduled View Only Hematology and Dameon Hernandez MD [facility] [place] [address] [address] HEMATOLOGY AND [place], [place] [id number] 08/21/2022 TH Visit (TeleHealth) Hematology and Reddy Hernandez Oncology [facility] [address] [place], [place] [address] (Wo rk) 08/21/2022 Infusion Hematology and Oncology 08/28/2022 Office Visit Hematology and Reddy Hernandez Oncology [facility] [address] [place], [place] [address] (Wo rk) 08/28/2022 Infusion Hematology and Oncology 09/11/2022 Office Visit Hematology and Reddy Hernandez MD [facility] [place] [address] [address] HEMATOLOGY AND [place], [place] [id number] 09/11/2022 Infusion Hematology and Oncology 09/18/2022 Office Visit Hematology and Nikky Pak, Oncology [address] HEMATOLOGY AND [place], [place] [id number] (Wo rk) 09/18/2022 Infusion Hematology and Oncology 03/10/2023 Office Visit Cardiology Ofelia Rubalcava MD [facility] [address] [place] [address] (Wo rk) documented as of this encounter Visit Diagnoses Not on filedocumented in this encounter Care Teams Supervisor Beam Department Relationship Specialty Start Date End Date Harshal Godfrey MD PCP - General Family Medicine 02/18/22 [address] [place] [address] documented as of this encounter
--- OUTSIDE RECORDS SUMMARY | 2022-08-21 01:38 | XMS_ITS | Encounter Summary ---
:1950 [place] [address] Care Team Providers Name Role Phone Harshal Godfrey MD Primary Care Provider [phone] Encounter Details Date Type Department Care Team Description 03/19/2022 Hospital Same Day Program Austin Vences II, MD [facility] [place] [address] Screening for cardiovascular condition; Encounter at Dwayne Ochoa MD [facility] [place] [address] Aortic [place], [place] [id number] Social History Tobacco Use Types Packs/Day Years [...] Sign Reading Time Taken Comments Blood Pressure 127/68 03/19/2022 3:30 PM EDT Pulse 103 03/19/2022 3:04 PM EDT Temperature 36.5 ??C (97.7 ??F) 03/19/2022 10:12 AM EDT Respiratory Rate 20 03/19/2022 3:30 PM EDT Oxygen Saturation 89% 03/19/2022 3:30 PM EDT Inhaled Oxygen Concentration - - Weight - - Height - - Body Mass Index - - documented in this encounter Discharge Instructions Patient InstructionsAhsan Mckeon MD - 03/19/2022 12:13 PM EDT Radial Access for Heart Cath Activity Try to avoid bending your wrist for the first 12-24 hours after the procedure to allow the artery tofully heal. Do not participate in active sports for 48 hours. Do not lift anything greater than 5 lbs. Catheter Insertion Area Care Take the dressing off of the catheter insertion site the morning following the procedure. Leave the site open to air. If the site is oozing you may cover it with a band aid. You may take a shower if you wish. Look for signs of infection over the next several days. It is uncommon to have any visible blood at the site, any obvious bleeding is abnormal. A bruise around the wrist or small lump under the skin is normal: they generally disappear in 3-5 days. Expect some mild tenderness over the area where the catheter was inserted. You will notice this after the local anesthetic (numbing medicine) wears off. This should improve during the 24-48 hours afterthe procedure. You may use acetaminophen (tylenol) if needed. Contact your doctor if the discomfort w orsens. Problems to Watch for If there is bright red blood flowing from the catheter insertion area: *stop what you are doing *hold pressure steadily on the area for 15 minutes *call for help *if the bleeding does not stop in 15 minutes call 911 for an ambulance. If there is swelling with black and blue color at the catheter insertion site, there may be bleeding inside. Contact the doctor if there is any increase in size. Look at the insertion site for the first few days at home. Signs of infection are: *redness *swelling *yellow, white, green or brown foul smelling drainage. *increased soreness If you think there is an infection, take your temperature. Then call your doctor. The limb on the side where you had your catheterization should look and feel normal in color, sensation, and temperature. If your hand or fingers become cool, pale, blue or change color contact your doctor. If you are having numbness or tingling in your fingers or hand contact your doctor. Follow-up: No future appointments. New Medications to be Picked Up none For questions regarding this document or issues relating to this hospitalization on the Medical Service, please contact your inpatient physician through the [facility] . Issues after hours and on weekends will be handled by the Hospitalist staff on-call. documented in this encounter Medications at Time of Discharge Medication Sig Dispensed Refills Start Date End Date nystatin (MYCOSTATIN) Apply 1 Application 0 11/30 [...] Take 81 mg by mouth 0 daily. ProChamber Spacer Inhale 1 Package 0 12/22/2021 1 into the lungs every 6 hours as needed. multivitamin (THERAGRAN) Take 1 tablet by 0 07/10/2022 Tablet mouth daily. furosemide (Lasix) 20 mg Take 20 mg by mouth 0 03/23/2022 Tablet 2 times daily. albuteroL 90 Inhale 2 puffs into 0 04/2022 mcg/actuation HFA Aerosol the lungs every 4 Inhaler hours as needed for Wheezing. Use with spacer verapamil (CALAN-SR) 180 Take 180 mg by mouth 0 04/08/2022 mg CR tablet daily. losartan (COZAAR) 100 mg Take 100 mg by mouth 0 04/08/2022 Tablet daily. documented as of this encounter Progress Notes Juan F Vargas RN - 03/19/2022 3:26 PM EDT Patient alert and oriented, vital signs stable. Reviewed discharge instructions; patient and daughter verbalized understanding. Copy of instruction sheet with contact numbers for questions/concerns with patient and daughter. Pain assessment documented. Juan F Vargas RN - 03/19/2022 3:[address] Mckeon to patient bedside, after discussion with patient and patients daughter, patient is determined to be at baseline O2 sat. Dr Mckeon is OK with patient being discharged to home. Leigh Solis RN - 03/19/2022 2:48 PM EDT Pt ambulated per MD request- pt O2 low recovered- states 'same as when I am home'an f Report given- plan for pt to stay and be seen by MD prior to discharge. Denies feeling any different than at home . documented in this encounter H&P Notes Ahsan Mckeon MD - 03/19/2022 10:59 AM EDT Images from the original note were not included. Cardiac Cath Pre-Procedure Note Marcelle Conner is a 72 y.o. female with PMH HTN, DM, severe who presents for coronary angiogram /RHC for TAVR evaluation. NYHA III with severe SOB. 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 Referred by Dr Rubalcava, pt noted increased SOB for the past 1 year. No chest pain or syncope. Patient Vitals for the past 24 hrs: Temp Pulse Resp BP SpO2 O2 Device 03/19/22 1012 36.5 ??C (97.7 ??F) (!) 116 16 (!) 135/100 92 % RA Cardiovascular ROS: positive for - dyspnea on exertion Physical Exam ASA: 3: Patient with severe systemic disease Mallampati: III: only the base of the uvula can be seen Sedation Plan: moderate (conscious sedation) Assessment and Plan: Proceed with cardiac cath today, see progress note from today for further details. The indications, expected benefits, and potential risks of heart catheterization were reviewed in detail with the patient. The potential for , heart attack, stroke, kidney failure, hemorrhage, allergic reaction, vascular complications and infection were reviewed in detail. The possibility of stenting and other percutaneous intervention, with associated risk, was reviewed. The possible need for emergent coronary artery bypass surgery was reviewed. Alternatives were discussed and the patient's questions were answered in full. Following this discussion, the patient consented to the procedure and signed a form attesting to this, which is in the chart. No contraindication to DAPT Labs and previous imaging were reviewed Chronic antiplatelet: Aspirin, last taken today Chronic anticoagulation: None Will proceed with CA/RHC . Discussed with Dr Rachel. Ahsan Mckeon MD PGY7 Interventional Cardiology [facility] documented in this encounter Plan of Treatment Upcoming Encounters Date Type Specialty Care Team Description 08/21/2022 Scheduled View Only Hematology and Dameon Hernandez MD [facility] [place] [address] [address] [place] [address] 08/21/2022 TH Visit (TeleHealth) Hematology and Reddy Hernandez Oncology [facility] [address] (Wo rk) 08/21/2022 Infusion Hematology and Oncology 08/28/2022 Office Visit Hematology and Reddy Hernandez Oncology [facility] [address] [place] [address] (Wo rk) 08/28/2022 Infusion Hematology and Oncology 09/11/2022 Office Visit Hematology and Reddy Hernandez MD [facility] [place] [address] [address] HEMATOLOGY AND [place], [place] [address] 09/11/2022 Infusion Hematology and Oncology 09/18/2022 Office Visit Hematology and Nikky Pak, Oncology [address] HEMATOLOGY AND [place], [place] [id number] (Wo rk) 09/18/2022 Infusion Hematology and Oncology 03/10/2023 Office Visit Cardiology Ofelia Rubalcava MD [facility] [address] [place] [address] (Wo rk) documented as of this encounter Procedures Procedure Name Priority Date/Time Associated Diagnosis Comme nts POCT GLUCOSE Routine 03/19/2022 12:25 Results for this PM EDT procedure are i n the results section. CARDIAC CATHETERIZATION Routine 03/19/2022 12:15 Screening for Results for this PM EDT cardiovascular procedure are in condition the results Aortic valve section. stenosis, severe CORONARY ANGIOGRAPHY; W 03/19/2022 11:06 Screening for RHC AM EDT cardiovascular condition Aortic valve stenosis, severe EKG 12-LEAD Routine 03/19/2022 10:27 Screening for Results fo r this AM EDT cardiovascular procedure are in condition the results Aortic valve section. stenosis, severe POCT GLUCOSE Routine 03/19/2022 10:04 Results for this AM EDT procedure are i n the results section. documented in this encounter Results POCT Glucose (03/19/2022 12:25 PM EDT) athologist Signature POC Glucose 115 65 - 199 [facility] mg/dL [facility] Comment: Supplemental ranges: <140 mg/dL before meals <180 mg/dL all other times of the day Specimen Anatomical Collection Method Collection Time Receive d Time (Source) Location / / Volume Laterality Blood 03/19/2022 12:25 03/19/2022 PM EDT 12:25 PM EDT Dwayne Rachel MD POINT OF CARE TEST ORDERABLE S Performing Organization Address City/State/[place] [address] CARDIAC CATHETERIZATION (03/19/2022 12:15 PM EDT) Anatomical Region Laterality Modality Other Specimen (Source) Anatomical Location Collection Method / Collectio n Time Received Time / Laterality Volume Narrative 03/19/2022 6:24 PM EDT ?[facility] ? Cardiac Cathete rization/Intervention Report ? Patient Name: Corkins, Marcelle A. ? Procedure Date: 03/19/2022 ? A #: [id number] ? Primary Physician: Dwayne Rachel ? Case #: [id number] ? File Name: [id number] ? Catheterization Order Number: [id number] ? [facility] ? Final Report [place], [place] ? Patient Name: ? Marcelle A. Corkin s ?ID#: ?[id number] ? : ?1950 ? Procedure Date: ? March 19, 2022 ?Case #: ? [id number] ? Room: ? 1 ? Case Physician: ? Dwayne Rachel M.D. ?Start: ?11:24 ?Fellow: ? Irisent E G acad, M.D. ?Admission: ??03/19/2022 ? Referring Physician: ??Ofelia K Gini ? Procedures: ?* Coronary Angiography ?* Right Heart Catheterization ?* Oximetry ? History ?Marcelle AJassi Conner is a 72 year ol d woman. The patient's smoking status is ?Never. The patient has hypercho lesterolemia managed with lipid therapy. ?She also has diabetes managed w ith oral medication. Prior to the ?initiation of this procedure, t he patient was designated as ASA Class ?III. The [facility] clinical frailty scale is 5: Mildly Frail. ? Diagnostic Tests: ?Prior Coronary Angiography: ? LV ejection fraction wit hin 6 months is 60%. ?Electrocardiography: ? EKG was assessed by ECG. EKG was Abnormal. EKG showed other ? abnormality. ?Medications Prior to Procedure: ? Aspirin, Angiotensin II Receptor Alonso and Statin. ? Indications for Diagnostic Cath: ?The priority of the diagnostic procedure was Elective. Chest pain symptom ?assessment was: Asymptomatic. O ne of the indications for cath is valvular ?heart disease. The patient has Severe aortic stenosis. ? Technique: ?A 6 SLFr sheath was inserted in the right radial artery utilizing the ?Seldinger technique. A 5 SLFr s mati was inserted in the right median ?antecubital vein utilizing the Seldinger technique. The left coronary ?artery was injected utilizing a 5Fr JL 3.5 catheter. A 5Fr JR 4 catheter ?was used to inject the right co ronary artery. Right heart catheterization ?was performed utilizing a 5Fr B ALLOON WEDGE catheter. 7,000 units of ?heparin were administered. A to arben of 150cc of Iso-Kati were opened, 79cc ?of Iso-Kati were administered an d 71cc of Iso-Kati were wasted. Radiation: ?Fluoro time was 8.9 minutes, do se area product was 34,100 mGYcm2 and air ?kerma was 539 mGY. See the case log for additional details. ?The patient received the follow ing medications prior to and during the ?procedure: ? Unfractionated Heparin. ? Hemodynamics: ?Right Heart Pressures ? Resting: ? Syst D iast ? EDP ?a ?v ? m ?RA ? 20 ?18 ?12 ?RV 75 ?11 ?PA 78 ?29 ?48 ?PCW ?35 ?34 ?26 ? Hemodynamic Profile: ?Profile 1 ?CO ? 4.63 ?CI ? 2.41 ?TSR ? 1,434 ?SVR ? 1,227 ?TPR ?829 ?PVR ?380 ?Techniq ue ?Estimated Chloe ?Left Heart Pressures ? Resting: ? Syst D iast ? EDP ?a ?v ? m ?Ao 121 ?? 61 ?83 ? Oximetry: ?Location ? % Sat ?Location ?%Sat ?Main Pulmonary Artery ??59.0 ?Radial artery ? 90.0 ? Coronary Angiography: ?Dominance: Right ?Left Main ? There was a 50% single d iscrete stenosis of the ostial segment of ? the left main artery. ?Left Anterior Descending ? There was mild diffuse ( <=25% stenosis) disease of the entire vessel ? segment of the left ante rior descending artery (LAD). ??The ostial ? segment of the LAD had a single discrete 30% stenosis. ?Left Circumflex ? There was a 98% calcifie d long segmental stenosis of the proximal ? segment of the left circ umflex artery (LCX). ??The LCX was large. ?Right Coronary Artery ? There was a 60% long seg mental stenosis of the mid segment of the ? right coronary artery (R CA). ??The RCA was large. ? Indication for Selected Procedures: ?Right Heart catheterization was initiated for Nonrheumatic aortic (valve) ?stenosis (I35.0). ? Vascular Access: ?Vascular Access Management: ? Manual Compression of th e right median antecubital vein access site ? was performed. ? Mechanical Compression o f the right radial artery access site was ? performed. ? Conclusions: ?* Significant stenosis of the l eft main ?* Two vessel coronary artery di sease (LCX and RCA) ?* Severe pulmonary hypertension ?* Elevated pulmonary capillary wedge pressure ? Complications/Events: ?The patient had no complication s during these procedures. ?The attending physician was presen t for the entire procedure. ?Dr. Dwayne Rachel M.D. was pres ent during the moderate sedation ?intraservice time as documented by the sedation nurse. ??Case time = 00:41. ?Dr. Dwayne Rachel M.D. performe d the coronary angiography, right heart ?catheterization and oximetry. ? Dwayne Rachel M.D. ? Electronically Signed by: Dwayne mosquera M.D. ? Report Finalized: 03/19/2022 ??18:15 ? Dwayne Rachel MD CARDIAC CATH ORDERABLES EKG 12 Lead (03/19/2022 10:27 AM EDT) Component Value Ref Range Test Analysis Performed Pathologis t Method Time At Signature Ventricular rate 108 BPM MUSE SYSTEM Atrial Rate 108 BPM MUSE SYSTEM P-R Interval 132 ms MUSE SYSTEM QRS Duration 78 ms MUSE SYSTEM Q-T Interval 344 ms MUSE SYSTEM QTC Calculated 460 ms MUSE SYSTEM (Bezet) Calculated P [place] 73 degrees MUSE SYSTEM Calculated R [place] 66 degrees MUSE SYSTEM Calculated T [place] 83 degrees MUSE SYSTEM INTERPRETATION Sinus tachycardia with Premature atrial complexes MUSE SYSTEM Nonspecific ST abnormality Abnormal ECG When compared with ECG of 18-FEB-2022 13:31, Premature ventricular complexes are no longer Present Confirmed by MD Gaurav, Carlos ([id number]) on 03/19/2022 2:21:02 PM Specimen Anatomical Collection Method Collection Time Receive d Time (Source) Location / / Volume Laterality 03/19/2022 10:27 03/19/2022 2:21 AM EDT PM EDT Abhinav Vences II, MD ECG ORDERABLES Performing Organization Address City/State/ZIP Code Phon e Number MUSE SYSTEM POCT Glucose (03/19/2022 10:04 AM EDT) athologist Signature POC Glucose 122 65 - 199 [facility] mg/dL [facility] Comment: Supplemental ranges: <140 mg/dL before meals <180 mg/dL all other times of the day Specimen Anatomical Collection Method Collection Time Receive d Time (Source) Location / / Volume Laterality Blood 03/19/2022 10:04 03/19/2022 AM EDT 10:04 AM EDT Abhinav Vences II, MD POINT OF CARE TEST ORDERABLE S Performing Organization Address City/State/[place] [address] documented in this encounter Visit Diagnoses Diagnosis Screening for cardiovascular condition Screening for other and unspecified card iovascular conditions Aortic valve stenosis, severe Aortic valve disorders Screening for cardiovascular condition Screening for other and unspecified card iovascular conditions Aortic valve stenosis, severe Aortic valve disorders Colon cancer metastasized to liver Malignant neoplasm of colon, unspecified site documented in this encounter Administered Medications Inactive Administered Medications - up to 3 most recent administrations Medication Order MAR Action Action Date Dose Rate Site sodium chloride 0.9% New Bag 03/19/2022 10:23 AM EDT 50 mL/hr 50 mL/hr infusion 50 mL/hr, Intravenous, CONTINUOUS, Starting on Birgit 03/19/22 at 1030, Until Birgit 03/19/22 at 1229, Cath (Day of Procedure) documented in this encounter Active and Recently Administered Medications Times are shown in EDT. Continuous Medication Order 03/17/2022 03/18/2022 03/19/2022 sodium chloride 0.9% infusion 10 23 (New Bag - Provider: Myra Crouch RN) 50 mL/hr, Intravenous, CONTINUOUS, Start ing on Birgit 03/19/22 at 1030, Until Birgit 03/19/22 at 1229, Cath (Day of Procedure) sodium chloride 0.9% infusion 13 40 (Stopped - Provider: Leigh Solis RN) 100 mL/hr, Intravenous, CONTINUOUS, Star ting on Birgit 03/19/22 at 1245, Until Birgit 03/19/22 at 1444, Recovery (Recovery-Hospital Unit) PRN Medication Order 03/17/2022 03/18/2022 03/19/2022 fentaNYL (PF) (50 mcg/mL) injection 25 mcg 25 mcg, Intravenous, EVERY 30 MIN PRN, S tarting on Birgit 03/19/22 at 1220, Until Birgit 03/19/22 at 1519, Pain, sheath removal, Maximum of 4 doses while in Cath Recovery Unit, Cath (Recovery-Hospital Unit), Routine fentaNYL (pf) (50 mcg/mL) multi-dose injection (CANCELED) 1127 (Given - Provider: Johnson Fleming RN) ONCE PRN, Starting on Birgit 03/19/22 at 112 7, Until Birgit 03/19/22 at 1213, Intra- Operative (Intra-Procedure), Routine heparin (porcine) (1,000 units/mL) injection (CANCELED) 1140 (Given - Provider: Johnson Fleming RN)1154 (Given - Provider: Duane Scott RN) ONCE PRN, Starting on Birgit 03/19/22 at 114 0, Until Birgit 03/19/22 at 1213, Cath (Intra-Procedure), Routine lidocaine (Xylocaine) 1% (10 mg/mL) injection (CANCELED) 1122 (Given - Provider: Ahsan Mckeon MD)1124 (Given - Provider: Ahsan Mckeon MD) ONCE PRN, Starting on Birgit 03/19/22 at 112 2, Until Birgit 03/19/22 at 1213, Cath (Intra-Procedure), Routine midazolam (pf) (Versed) (1 mg/mL) injection 1 mg 1 mg, Intravenous, EVERY 1 HOUR PRN, Sta rting on Birgit 03/19/22 at 1220, Until Birgit 03/19/22 at 1519, For sheath removal, Maximum of 2 doses while in Cath Recovery Unit, Cath (Recovery-Hospital Unit), Routine midazolam (pf) (Versed) (1 mg/mL) multi-dose injection (CANCELED ) 1127 (Given - Provider: Johnson Fleming RN) ONCE PRN, Starting on Birgit 03/19/22 at 112 7, Until Birgit 03/19/22 at 1213, Cath (Intra-Procedure), Routine verapamiL (Isoptin) (2.5 mg/mL) injection (CANCELED) 1128 (Given - Provider: Ahsan Mckeon MD) ONCE PRN, Starting on Birgit 03/19/22 at 112 8, Until Birgit 03/19/22 at 1213, Administer over 2 Minutes, Cath (Intra-Procedure) documented in this encounter Care Teams Supervisor Stripping Relationship Specialty Start Date End Date Harshal Godfrey MD PCP - General Family Medicine 02/18/22 [address] [place] [address] documented as of this encounter
--- OUTSIDE RECORDS SUMMARY | 2022-08-21 01:38 | XMS_ITS | Encounter Summary ---
:1950 Author Organization [place] [address] Care Team Providers Name Role Phone Harshal Godfrey MD Primary Care Provider [phone] Reason for Referral Diagnostic Test (Routine) - Closed Specialty Diagnoses / Procedures Referred By Contact Refer red To Contact Radiology Diagnoses Aortic stenosis, severe Stoutenburg, Cleo A, [facility] Rad Ct Scan Procedures CT Chest wo Contrast (Generic) [place] [address] [place] [address] Referral ID Status Reason Start Date Expiration Date Visits V isits Requested Authorized [id number] Closed Specialty 03/20/2022 09/19/2023 1 1 Service Requested Reason for Visit Diagnostic Test (Routine) - Closed Specialty Diagnoses / Procedures Referred By Contact Refer red To Contact Radiology Diagnoses Aortic stenosis, severe Stoutenburg, Cleo A, Mhm[facility] Rad Ct Scan Procedures CT Chest wo Contrast (Generic) [place] [address] [place] [address] Referral ID Status Reason Start Date Expiration Date Visits V isits Requested Authorized [id number] Closed Specialty 03/20/2022 09/19/2023 1 1 Service Requested Encounter Details Date Type Department Care Team Description 03/23/[address] [place] [facility] [place] Aortic stenosis, [facility] MD [address] [facility] [phone] CARDIAC SURGERY [phone] [place] [address] Social History Tobacco Use Types Packs/Day Years [...] Take 2 tablets by 84 tablet 0 07/03/202204/10/2022 Tablet mouth 2 times daily for 14 [...] the lungs every 6 hours as needed. chlorhexidine Apply topically daily 120 mL 0 [...] View Only Hematology and Dameon Hernandez MD [facility] [place] [address] Oncology [address] [place] [address] 08/21/2022 TH Visit (TeleHealth) Hematology Reddy Young Oncology [facility] [address]ANGEL[address] [place], [place] [address] (Wo rk) 08/21/2022 Infusion Hematology and Oncology 08/28/2022 Office Visit Hematology Reddy Young Oncology [facility] [address], [place] [address] (Wo rk) 08/28/2022 Infusion Hematology and Oncology 09/11/2022 Office Visit Reddy Thompson MD [facility] [place] [address] Oncology Nikky Pak, [address] HEMATOLOGY AND [place], [place] [id number] 09/11/2022 Infusion Hematology and Oncology 09/18/2022 Office Visit Hematology and LaRNikky stallworth, Oncology [address] [place] [address] (Wo rk) 09/18/2022 Infusion Hematology and Oncology 03/10/2023 Office Visit Cardiology Ofelia Rubalcava MD [facility] Dr [place], [place] [address] (Wo rk) documented as of this encounter Procedures Procedure Name Priority Date/Time Associated Diagnosis Comme nts CT CHEST WO Routine 03/23/2022 9:26 AM Aortic stenosis, Resul ts for this CONTRAST (GENERIC) EDT severe procedure are in the results section. documented in this encounter Results (ABNORMAL) CT Chest wo Contrast (Generic) (03/23/2022 9:26 AM EDT) Anatomical Region Laterality Modality Chest Computed Tomography Specimen (Source) Anatomical Collection Method Collection Time Re ceived Time Location / / Volume Laterality 03/23/2022 9:44 AM EDT Impressions 03/23/2022 10:18 AM EDT Moderate to severe calcifications at the aortic valve level. Prominent calcifications at the aortic arch. Sever e coronary artery atherosclerotic calcifications. Bulky calcifications at the mitral annulus. UNEXPECTED FINDING of pathologic enlarge ment of mediastinal lymph nodes especially in the right paratracheal reg ion, abnormal findings in the right and left liver lobe, as well as numerous kady y small pulmonary nodules. Findings are highly suspicious for malignancy. Suspect sequela of aspiration or early p neumonia at the right lung base. Thank you for letting us participate in the care of this patient. ??If you are a health care provider and have any questi ons regarding this report, please contact the number below. ??For patients who have questions please contact the health ambulatory care coordinator that requested your imaging first. ? Narrative 03/23/2022 10:18 AM EDT EXAMINATION: CT CHEST WO CONTRAST (GENERIC) CLINICAL HISTORY: Aortic atherosclerosis TECHNIQUE: 3 mm thick axial contiguous s ections were obtained through the chest via helical acquisition without intraven ous contrast administration. Thin-section reconstructions as well as coronal and sagittal reformatted images were generated. COMPARISON: None FINDINGS: Pulmonary parenchyma: Underlying centril obular and paraseptal emphysematous changes. Diffuse mosaic pattern of the l ungs. Small indistinct patchy opacities at the right lung base. Multiple bilater al subcentimeter pulmonary nodules (series 4 image 45, 57, 79, 129, 130, 13 4, 139, 164, 189, 199). Airways: Central and segmental airways a re patent. Pleura: Only trace pleural fluid on the right. Lymph nodes: Conglomerate abnormally enl arged right paratracheal lymph nodes measuring up to 19 x 34 mm. Prominent pinto bcarinal lymph nodes. Evaluation of hilar lymphadenopathy is limited by nonc ontrast technique. Heart, pericardium, and great vessels: M ild to moderate biatrial enlargement. Severe mitral annular calcification. Mod erate to severe calcifications at the aortic valve level. Severe coronary keith ry atherosclerotic calcification. Moderate to severe calcifications at the aortic arch. Other mediastinal structures: No signifi cant findings. Lower neck: No significant findings. Upper abdomen: Nodular contour of the li kady parenchyma. Coarse calcifications at the left liver lobe. Decreased density t hroughout the left liver lobe. Subtle low densities in the posterior aspect of the right liver lobe (series 4 image 233) as well as in the inferior anterior aspect of the right liver lobe (image 322). Body wall soft tissues: Very small anter ior abdominal wall fat-containing hernias. Skeletal structures: Degenerative change s. Prominent kyphosis. Resulting Agency Comment Unexpected Finding Abdulkadir Raya MD IMG CT ORDERABLES documented in this encounter Visit Diagnoses Diagnosis Aortic stenosis, severe Aortic valve disorders Colon cancer metastasized to liver Malignant neoplasm of colon, unspecified site documented in this encounter Care Teams Pharmacy Student Relationship Specialty Start Date End Date Harshal Godfrey MD PCP - General Family Medicine 02/18/22 [facility] [place] [address] documented as of this encounter
--- OUTSIDE RECORDS SUMMARY | 2022-08-21 01:38 | XMS_ITS | Encounter Summary ---
:1950 Author Organization [facility] [place] [address] Care Team Providers Name Role Phone Jasmeet Callejas MD Primary Care Provider [phone] Encounter Details Date Type Department Care Team Description 02/05/2022 Abstract Cardiology at Ofelia Ray MD [address] [facility] [address] [facility] [place] [address] [place] [address] [phone] (Wo rk) Social History Tobacco Use Types Packs/Day Years Used Date Smoking Tobacco: Never Smokeless Tobacco: Never Financial Resource Strain Answer Date Recorded How [...] Hernandez MD [facility] [place] [address] [address] HEMATOLOGY AND [place], [place] [id number] 08/21/2022 TH Visit (TeleHealth) Hematology and Reddy Hernandez Oncology [facility] [address]ANG[address]O [place], [place] [address] (Wo rk) 08/21/2022 Infusion Hematology and Oncology 08/28/2022 Office Visit Hematology and Reddy Hernandez Oncology [facility] [address]ANG[address] [place], [place] [address] (Wo rk) 08/28/2022 Infusion Hematology and Oncology 09/11/2022 Office Visit Hematology and Reddy Hernandez MD [facility] [place] [address] [address] HEMATOLOGY AND [place], [place] [phone] 09/11/2022 Infusion Hematology and Oncology 09/18/2022 Office Visit Hematology and Nikky Pak, Oncology [address] [place], [place] [phone] (Wo rk) 09/18/2022 Infusion Hematology and Oncology 03/10/2023 Office Visit Cardiology Ofelia Rubalcava MD [facility] [address] [place], [place] [address] (Wo rk) documented as of this encounter Visit Diagnoses Not on filedocumented in this encounter Care Teams Sharebroker Relationship Specialty Start Date End Date Jasmeet Callejas MD PCP - General 08/26/10 02/17/[address] [place] [address] [place] [address] documented as of this encounter
--- OUTSIDE RECORDS SUMMARY | 2022-08-21 01:38 | XMS_ITS | Encounter Summary ---
:1950 Author Organization [facility] [place] [address] Care Team Providers Name Role Phone Harshal Godfrey MD Primary Care Provider [phone] Reason for Visit Auth/Cert Specialty Diagnoses / Procedures Referred By Contact Refer red To Contact Diagnoses CAD (coronary artery disease) CAD/ . Abdulkadir Raya [facility] Procedures PRO REPLACEMENT PROSTHETIC AORTIC VALVE OPEN W CARDIOPULMONARY BYPASS HOMOGRF/STENT PRO CABG, ARTERIAL, SINGLE PRO CABG, ARTERY-VEIN, TWO PRO ENDOSCOPY W/VIDEO-ASST VEIN HARVEST, CABG @REPLACE AORTIC VALVE, OPEN, W\CPB, W\PROSTHETIC VALVE (WRVU 41.32) @CABG, USING ARTERIAL GRAFT;SINGLE ARTERIAL GRAFT (WRVU 33.75) @CABG, TWO VENOUS GRAFTS & ARTERIAL GRAFT (WRVU 7.93) ENDOSCOPIC HARVEST VEIN(S) FOR CABG (WRVU 0.31) [facility] [place] [address] Referral ID Status Reason Start Date Expiration Date Visits Requ ested Visits Authorized [id number] 1 1 Encounter Details Date Type Department Care Team Description 03/30/2022 Anesthesia Event Main Operating Room Montse Szymanski, [facility] Aleena [place]re[place] [address] [place] [address] [phone] (Wo rk) Anesthesia Record Procedure Summary Procedure Name Responsible Anesthesia Start Anesthesia Stop Time Anesthesiologist Time @REPLACE AORTIC Breann Pierre MD 03/30/22 0744 03/30/22 1638 VALVE, OPEN, W\CPB, W\PROSTHETIC VALVE (WRVU 41.32) (Chest) Events Date Time Event Comment 03/30/2022 0730 0744 AN Verify 0744 Start 0744 An Start Data 0757 An Induction 0800 An Intubation 0806 JAVY PROBE ONLY 0815 Anesthesia Ready 0835 Procedure Start 0849 Sternotomy 1018 CV Bypass init 1026 An Clamp start 1300 Quick Note Flows down for r epair of aorta. Temperature 26 C. 1300 Induced Hypothermia 1300 An Clamp Remove 1301 AN Circ Arrest 1303 An Clamp start 1324 Rewarming 1359 Data Systems Manager 1402 An Clamp Remove 1432 CP Bypass Ended 1436 Chest Closed 1613 an stop data 1634 Recovery or ICU Handoff Patient care was transferred to the destination unit staff after review of the patient's medica l history, current anesthetic/surgi bud status and plan, according to the Provider Handoff Checklist. 1638 Stop Name Total fentaNYL 200 mcg Propofol 330 mg Propofol INF 307.22 mg PHENYLephrine 80 mcg Vecuronium 30 mg Heparin 56,000 Units Protamine 260 mg Tranexamic Acid 1,000 mg Tranexamic Acid INF 840.01 mg Insulin Regular Human 10 Units Insulin Regular INF 31.42 Units Esmolol 10 mg NORepinephrine 16 mcg NORepinephrine INF 887 mcg Dexamethasone 8 mg desmopressin (DDAVP) 10 mcg/spray nasal spray 32 mcg Vasopressin INF 10.12 Units Vasopressin 2.5 Units EPINEPHrine INF 244 mcg Calcium Chloride 500 mg lactated ringers infusion 0 mL Sodium Chloride 0.9% 0 mL Agents Name O2 Air N2O Isoflurane (et) Blood No blood administrations on file. Lines, Drains, and Airways Type Details Placement Removal Chest Tube 03/30/22; other (see 03/30/22 0000 by 04/01/22 1 225 by comments); other (see Yoshi Conway RN Kelly, Julia L RN comments); mediastinum; 28Fr Straight - Right Anterior Mediastinum; 04/01/22; 1225 Chest Tube 03/30/22; other (see 03/30/22 0000 by 04/01/22 1 225 by comments); other (see Yoshi Conway RN Kelly, Julia L RN comments); mediastinum; 28Fr Angled - Right Posterior Mediastinum; 04/01/22; 1225 Chest Tube 03/30/22; other (see 03/30/22 0000 by 04/01/22 1 225 by comments); other (see Yoshi Conway, Kate Gil, RN comments); 24Fr - Pleural; 04/01/22; 1225 Closed/Suction Drain 03/30/22; 1; Inferior, 03/30/22 0000 by 2130 by Left, Proximal; Leg; Bulb; Yoshi Conway, KALIE Adams, (7mm) KALIE Melissa ETT Mask Ventilation: 03/30/22 0805 by 03/31/22 0733 by Difficult (3) (Oral airway Breann Pierre D , Rosas Enrique, and 2 hand mask); ETT RT Type: Cuffed; ETT Size: 8 mm; Mac Blade: 3; Notes: Asleep, Pre-O2, Stylette; Attempts: 1; Laryngoscopy Grade: 1; Secured at Teeth: 22 cm Urethral Catheter 03/30/22; 0810; Need for 03/30/22 0810 by 02/22 0949 by intraoperative urine Yoshi Conway, Erin Lemus, output monitoring; RN indwelling catheter with core temperature probe; hydrophilic coated; 14; inserted at this facility; 1; 10; 10; drainage bag to dependent drainage; 04/07/22; 0949 Arterial Line 03/30/22; 0823; radial 03/30/22 0823 by 04/05/22 1315 by artery, right; 20 gauge; Breann Pierre, Hanny Anderson, Anatomical Landmarks; MD JADE continuous blood pressure monitoring, frequent blood gas measurement; Sterile Prep, Sterile Gloves; 04/05/22; 1315 PA Catheter 03/30/22; 0823; Right; 03/30/22 0823 by 04/01/22 1225 by internal jugular vein; Breann Pierre Kelly, Julia L, RN standard thermodilution MD catheter, VIP; 7 Fr; CVC Bundle Performed; 04/01/22; 1225 CVC Single/Intro. 03/30/22; 0823; internal 03/30/22 0823 by 01/23 0930 by jugular vein, right; Breann Pierre Jahnke, Chelsey J, introducer; Ultrasound RN Guidance; Yes - US guidance used for evaluation of potential access sites, vessel patency and realtime visualization of needle entry with permanent recording.; 9 Fr; Gabby; JAVY; CVC Bundle Performed; 04/06/22; 0930 Incision 03/30/22; 0835; midline; 03/30/22 0835 by 1259 by sternal; vertical; Yoshi Conway, Erin Lemus, 04/08/22; 1259 RN Incision 03/30/22; 0835; anterior, 03/30/22 0835 by 04/08 1259 by Left; greater trochanter; Yoshi Conway, RN Erin Moon, laparoscopic puncture; RN 04/08/22; 1259 Incision 03/30/22; 0835; anterior, 03/30/22 0835 by 04/08 1300 by lower, proximal, Left; Yoshi Conway RN Erin Ramos, leg; laparoscopic RN puncture; 04/08/22; 1300 PIV 03/30/22; 1627; basilic 03/30/22 1627 by 2 0856 by vein (medial side of arm), Nicole Berman, RN Kate Johnson RN right; 20 gauge; 04/02/22; 0856 NG/OG Tube 03/30/22; 1630; right 03/30/22 1630 by 03/31/22 0730 by mouth; 64; Taped; Belén Castañeda Gama, Da isy M, RN 03/31/22; 0730 RN documented in this encounter Social History Tobacco [...] encounter OR Notes Anesthesia Postprocedure Evaluation - Breann Pierre MD - 03/30/2022 4:45 PM EDT Department of Anesthesiology Post-procedure Note Patient: Marcelle Conner Procedure Summary Date: 03/30/22 Room / Location: [facility] OR [address] [place] [address] MAIN OR Anesthesia Start: 743 Anesthesia Stop: 1637 Procedures: @REPLACE AORTIC VALVE, OPEN, W\CPB, W\PROSTHETIC VALVE (WRVU 41.32) (N/A Chest) @CABG, USING ARTERIAL GRAFT;SINGLE ARTERIAL GRAFT (WRVU 33.75) (N/A Chest) @CABG, VENOUS & ARTERIAL GRAFT;SINGLE VEIN GRAFT (WRVU 3.61) (N/A Chest) ENDOSCOPIC HARVEST VEIN(S) FOR CABG (WRVU 0.31) (Left Leg) REPAIR, PATCH, AORTIC ROOT (WRVU 5.94) (N/A Chest) Diagnosis: (CAD/) Surgeons: Abdulkadir Raya MD Responsible Provider: Breann Pierre MD Anesthesia Type: general ASA Status: 3 All Anesthesia Providers: Anesthesiologist: Breann Pierre MD Vitals Value Taken Time BP Temp 35.5 ??C (95.9 ??F) 03/30/22 1630 Pulse 77 03/30/22 1645 Resp 15 03/30/22 1645 SpO2 100 % 03/30/22 1645 Pain Level Vitals shown include unvalidated device data. Patient Location: [facility] Level of Consciousness: Sedated (Pharmacologic/Intentional) Pain Management: Satisfactory Analgesia PONV: None Cardiovascular Status: Hemodynamically Stable and Hypotension (received treatment) Respiratory Status: Intubated/Ventilated and Supplemental O2 (NC or FM) Postoperative Fluid Status: Intravascular EUvolemia Possible Anesthetic Complications: NONE apparent at time of evaluation Final Primary Anesthesia Type: General (The anesthetic type performed was the same as planned.) Comments: The patient's hemodynamics, ventilation and oxygenation were stable during transport. [place] face handoff was performed with the ICU team. Infusions include Norepinephrine, Epinephrine and Vasopressin. The CI was 2.1 L/m/m2 upon arrival with ABP 110s (MAP 60), PAPs 50s/22 and CVP 20. Anesthesia Preprocedure Evaluation - Breann Pierre MD - 03/29/2022 3:43 PM EDT Pre-Anesthesia Evaluation for: Marcelle Conner a 72 y.o. female. Procedure(s): @REPLACE AORTIC VALVE, OPEN, W\CPB, W\PROSTHETIC VALVE (WRVU 41.32) @CABG, USING ARTERIAL GRAFT;SINGLE ARTERIAL GRAFT (WRVU 33.75) @CABG, TWO VENOUS GRAFTS & ARTERIAL GRAFT (WRVU 7.93) ENDOSCOPIC HARVEST VEIN(S) FOR CABG (WRVU 0.31) Patient Active Problem List Diagnosis Date Noted ??? Bradycardia 02/04/2022 ??? Left atrial dilation 01/29/2022 ??? Aortic stenosis, severe 01/29/2022 ??? CAD (coronary artery disease) 03/20/2022 ??? Diabetes mellitus 02/04/2022 ??? Hypertension 02/04/2022 ??? SOB (shortness of breath) 02/04/2022 ??? Lung nodule 02/04/2022 ??? Dermatitis 12/10/2011 Past Medical History: Diagnosis Date ??? Chronic anxiety ??? Claudication ??? Coronary artery disease ??? Diabetes ??? Diabetes mellitus 02/04/2022 ??? Gastroesophageal reflux ??? Heart valve disease ??? High blood pressure ??? Hyperlipidemia ??? Hypertension 02/04/2022 ??? Incisional hernia ??? Lung nodule 02/04/2022 Past Surgical History: Procedure Laterality Date ??? APPENDECTOMY ??? GALLBLADDER SURGERY ??? HERNIA REPAIR ??? HYSTERECTOMY, TOTAL ABDOMINAL ? ? PRG CATH PLMT CORONARY ART W/INJ FOR ANGIO W/R HEART CATH IMG S&I N/A 03/19/2022 CORONARY ANGIOGRAPHY; W RHC performed by Dwayne Rachel MD at [facility] C[facility] ??? WRIST SURGERY Bilateral Social History Tobacco Use ??? Smoking status: Former Smoker Types: Cigarettes Quit date: 03/23/2012 Years since quittin.0 ??? Smokeless tobacco: Never Used Substance Use Topics ??? Alcohol use: Yes Comment: rarely - 4 / year Social History Substance and Sexual Activity Drug Use Not Currently Comment: CBD oil caps in past, stopeed @ 1 month ago No Known Allergies Medications: MAR and/or home medications have been reviewed. Physical Exam: Preprocedure Vitals Current as of 03/29/22 1543 No BP, pulse, respiration, SpO2, or temperature recorded. Height: Weight: BMI: IBW: 37.3 kg (82 lb 2.4 oz) Airway Assessment: Mallampati: III TM distance: >3 FB Neck ROM: full Cardiovascular Assessment: Rhythm: regular Rate: normal (+) murmur Pulmonary Assessment: breath sounds clear to auscultation (-) wheezes Dental Assessment: (+) upper dentures Comment: Lower partial Misc Assessment: IV access: Peripheral line Last Filed Perioperative Cognitive Screening Value Time User AD8 Total Score: 0 03/23/2022 12:00 PM Roula Eng RN ADVini Informant: Patient 03/23/2022 12:00 PM Roula Eng RN CFS Frailty Score: 3 03/23/2022 12:00 PM Roula Eng RN Anesthesia Plan: ASA 3 general, with a(n) intravenous induction Marcelle Conner is a 72 y.o. patient presenting for CABG/AVR. PMHx: bradycardia, left atrial dilation, aortic stenosis, NIDDM (metformin), reactive airway disease (albuterol), HTN (on verapamil and losartan), and lung nodules TTE: LVEF 60-65% with no RWMAs, severe with RICHELLE 0.6 cm2, normal RV size and function. Mild AI andMR. Cath: 50% LM, 98% left circumflex; PAP 78/29(48) with PCWP 26 and CI 2.41. SBP 121/61(83). CT: Heavy calcification of aortic arch with relative sparing of ascending aorta. Last 3 wbc, hgb, hct plt 03/23/22 1157 WBC 16.3* HGB 13.0 HCT 44.4 PLATELET 386* Last 3 Lytes 03/23/22 1157 NA 138 K 4.8 CL 105 CO2 18* BUN 24* CREATININE 0.95 Last 3 Coags 03/23/22 1157 PT 13.6* INR 1.2 Denies personal or family history of complications with anesthesia. NPO appropriate. Plan: GETA with pre-induction arterial line. CVC, PAC, JAVY. The patient was informed of the risks, benefits and alternatives of anesthesia. These risks included, but were not limited to, post-operative nausea and/or vomiting, pain, sore throat, dental/lip injury, and other rare but serious complications such as cardiac instability/arrest, neurologic event, awareness, severe allergic reactions, position-related nerve injuries, and need blood transfusions. All questions sought and answered. Region - Intrathoracic Cardiac Informed Consent: Anesthetic plan and risks discussed with patient. Use of blood products discussed with patient who consented to blood products. Plan discussed with attending. Anesthesia Screening documented in this encounter Miscellaneous Notes Addendum Note - Breann Pierre MD - 04/02/2022 11:18 AM EDT Addendum created 04/02/22 1118 by Breann Pierre MD Intraprocedure Meds edited documented in this encounter Plan of Treatment Upcoming Encounters Date Type Specialty Care Team Description 08/21/2022 Scheduled View Only Hematology and Dameon Hernandez MD [facility] [place] [address] [address] HEMATOLOGY AND [place], [place] [id number] 08/21/2022 TH Visit (TeleHealth) Hematology and Reddy Hernandez Oncology [facility] [address] [place], [place] [address] (Wo rk) 08/21/2022 Infusion Hematology and Oncology 08/28/2022 Office Visit Hematology and Reddy Hernandez Oncology [facility] [address] [place], [place] [address] (Wo rk) 08/28/2022 Infusion Hematology and Oncology 09/11/2022 Office Visit Hematology and Reddy Hernandez MD [facility] [place] [address] [address] HEMATOLOGY AND [place], [place] [id number] 09/11/2022 Infusion Hematology and Oncology 09/18/2022 Office Visit Hematology and Nikky Pak, Oncology [address] HEMATOLOGY AND [place], [place] [id number] (Wo rk) 09/18/2022 Infusion Hematology and Oncology 03/10/2023 Office Visit Cardiology Ofelia Rubalcava MD [facility] [address] [place] [address] (Wo rk) documented as of this encounter Visit Diagnoses Not on filedocumented in this encounter Administered Medications Inactive Administered Medications - up to 3 most recent administrations Medication Order MAR Action Action Date Dose Rate Site calcium chloride 10% (100 mg/mL) Given 03/30/2022 3:00 PM EDT 25 0 mg injection Intravenous, PRN, Starting on Wed03/30/22 at 1453, Until Wed03/30/22 at 1644, Anesthesia Intra-op, Routine Given 03/30/2022 2:53 PM EDT 250 mg desmopressin (DDAVP Nasal) 10 mcg/spray (0.1 Given 2:18 PM EDT 32 mcg mL) nasal spray Nasal, PRN, Starting on Wed03/30/22 at 1418, Until Wed03/30/22 at 1644, Anesthesia Intra-op, Routine dexAMETHasone (Decadron) injection Given 03/30/2022 1:00 PM EDT 8 mg Intravenous, PRN, Starting on Wed03/30/22 at 1300, Until Wed03/30/22 at 1644, Anesthesia Intra-op, Routine EPINEPHrine (Adrenalin) (8 mcg/mL) New Bag 03/30/2022 2:36 PM EDT 2 mcg/min 15 mL/hr in dextrose 5% 250 mL infusion Intravenous, CONTINUOUS PRN, Starting on Wed03/30/22 at 1436, Until Wed03/30/22 at 1644, Anesthesia Intra-op esmoloL (Brevibloc) (10 mg/mL) injection Given 03/30/2022 7:57 AM EDT 10 mg Intravenous, PRN, Starting on Wed03/30/22 at 0757, Until Wed03/30/22 at 1644, Anesthesia Intra-op, Routine fentaNYL (pf) (50 mcg/mL) multi-dose Given 03/30/2022 9:32 AM ED T 50 mcg injection Intravenous, PRN, Starting on Wed03/30/22 at 0757, Until Wed03/30/22 at 1644, Anesthesia Intra-op, Routine Given 03/30/2022 7:57 AM EDT 150 mcg heparin (porcine) (1,000 units/mL) Given 03/30/2022 9:44 AM EDT 10,000 Units injection Intravenous, PRN, Starting on Wed03/30/22 at 0919, Until Wed03/30/22 at 1644, Anesthesia Intra-op, Routine Given 03/30/2022 9:19 AM EDT 46,000 Units insulin regular (HumuLIN R,NovoLIN R) (100 Given 03/30 12:13 PM EDT 5 Units unit/mL) injection vial Intravenous, PRN, Starting on Wed03/30/22 at 1104, Until Wed03/30/22 at 1644, Anesthesia Intra-op, Routine Given 03/30/2022 11:04 AM EDT 5 Units insulin regular (Myxredlin) Rate/Dose Change 03/30/2022 11:43 10 Un its/hr 10 mL/hr (1 unit/mL) in sodium AM EDT chloride 0.9% 100 mL infusion Intravenous, CONTINUOUS PRN, Starting on Wed03/30/22 at 1104, Until Wed03/30/22 at 1644, Anesthesia Intra-op, Routine New Bag 03/30/2022 11:04 AM EDT 5 Units/hr 5 mL/hr lactated ringers infusion New Bag 03/30/2022 7:44 AM EDT 1,000 mL, at 100 mL/hr, Intravenous, CONTINUOUS, Starting on Wed03/30/22 at 0730, Until Wed03/30/22 at 1636, Day of Surgery (Day of Procedure) NORepinephrine (Levophed) (16 Rate/Dose Change 03/30/2022 3:30 2 mc g/min 7.5 mL/hr mcg/mL) in dextrose 5% 250 mL PM EDT infusion Intravenous, CONTINUOUS PRN, Starting on Wed03/30/22 at 0800, Until Wed03/30/22 at 1644, Anesthesia Intra-op, Routine Rate/Dose Change 03/30/2022 3:25 PM EDT 4 mcg/min 15 mL/hr Rate/Dose Change 03/30/2022 3:13 PM EDT 6 mcg/min 22.5 mL/hr NORepinephrine (Levophed) injection Given 03/30/2022 2:30 PM EDT 8 mcg Intravenous, PRN, Starting on Wed03/30/22 at 1306, Until Wed03/30/22 at 1644, Anesthesia Intra-op, Routine Given 03/30/2022 1:04 PM EDT 8 mcg PHENYLephrine in NS (PF) (JV-SYNEPHRINE) 0.8 Given 7:57 AM EDT 80 mcg mg/10 mL (80 mcg/mL) multi-dose injection Syrg Intravenous, PRN, Starting on Wed03/30/22 at 0757, Until Wed03/30/22 at 1644, Anesthesia Intra-op, Routine propofoL (Diprivan) (10 mg/mL) New Bag 03/30/2022 2:56 PM 30 m cg/kg/min 18.072 mL/hr infusion EDT Intravenous, CONTINUOUS PRN, Starting on Wed03/30/22 at 1456, Until Wed03/30/22 at 1644, Anesthesia Intra-op, Routine propofoL (Diprivan) 10 mg/mL bolus injection Given 12:59 PM EDT 50 mg (Anesthesia) Intravenous, PRN, Starting on Wed03/30/22 at 0757, Until Wed03/30/22 at 1644, Anesthesia Intra-op Given 03/30/2022 8:48 AM EDT 50 mg Given 03/30/2022 8:35 AM EDT 50 mg protamine (10 mg/mL) injection Given 03/30/2022 2:39 PM EDT 260 mg Intravenous, PRN, Starting on Wed03/30/22 at 1439, Until Wed03/30/22 at 1644, Anesthesia Intra-op, Routine sodium chloride 0.9% infusion New Bag 03/30/2022 7:44 AM EDT Intravenous, CONTINUOUS PRN, Starting on Wed03/30/22 at 0744, Until Wed03/30/22 at 1644, Anesthesia Intra-op tranexamic acid (Cyklokapron) New Bag 03/30/2022 8:16 AM 1 mg/kg/h r 1.004 mL/hr (100 mg/mL) infusion EDT Intravenous, CONTINUOUS PRN, Starting on Wed03/30/22 at 0816, Until Wed03/30/22 at 1644, Anesthesia Intra-op, Routine tranexamic acid (Cyklokapron) (100 mg/mL) Given 03/30/2022 8 :16 AM EDT 1,000 mg IV bolus Intravenous, PRN, Starting on Wed03/30/22 at 0816, Until Wed03/30/22 at 1644, Anesthesia Intra-op, Routine vasopressin (VASOSTRICT) 0.2 Rate/Dose 03/30/2022 3:30 0.06 Units/mi n 18 mL/hr units/mL IV infusion Change PM EDT (Anesthesia) Intravenous, CONTINUOUS PRN, Starting on Wed03/30/22 at 1402, Until Wed03/30/22 at 1644 Rate/Dose Change 03/30/2022 2:27 PM EDT 0.08 Units/min 24 mL/hr New Bag 03/30/2022 2:02 PM EDT 0.04 Units/min 12 mL/hr vasopressin (Vasostrict) injection Given 03/30/2022 3:03 PM EDT 1 Units Intravenous, PRN, Starting on Wed03/30/22 at 1431, Until Wed03/30/22 at 1644, Anesthesia Intra-op, Routine Given 03/30/2022 2:39 PM EDT 0.5 Units Given 03/30/2022 2:31 PM EDT 1 Units vecuronium (Norcuron) injection Given 03/30/2022 9:40 AM EDT 10 mg Intravenous, PRN, Starting on Wed03/30/22 at 0758, Until Wed03/30/22 at 1644, Anesthesia Intra-op, Routine Given 03/30/2022 8:36 AM EDT 10 mg Given 03/30/2022 7:58 AM EDT 10 mg documented in this encounter Care Teams Chisel Grinder Relationship Specialty Start Date End Date Harshal Godfrey MD PCP - General Family Medicine 02/18/22 [address] [place] [address] documented as of this encounter
--- OUTSIDE RECORDS SUMMARY | 2022-08-21 01:38 | XMS_ITS | Encounter Summary ---
:1950 Author Organization [facility] Address [facility] [place] [address] Care Team Providers Name Role Phone Harshal Godfrey MD Primary Care Provider [phone] Encounter Details Date Type Department Care Team Description 03/23/2022 Office Visit Cardiac Surgery at [facility] lve stenosis, [facility] [place] Abdulkadir etiology of cardiac [facility] leonid ve disease Drive unspecified [place], [place] CARDIAC SURGERY [address] [place] [address] [phone] Social History Tobacco Use Types Packs/Day Years [...] Sign Reading Time Taken Comments Blood Pressure 110/43 03/23/2022 10:03 AM EDT Pulse 45 03/23/2022 10:03 AM EDT Temperature - - Respiratory Rate - - Oxygen Saturation 90% 03/23/2022 10:03 AM EDT Inhaled Oxygen Concentration - - Weight 103 kg (227 lb 1.6 oz) 03/23/2022 10:03 AM EDT Height 147.3 cm (4' 10) 03/23/2022 10:03 AM EDT Report ed Body Mass Index 47.46 03/23/2022 10:03 AM EDT documented in this encounter Progress Notes Abdulkadir Raya MD - 03/23/2022 10:20 AM EDT Images from the original note were not included. Cardiac Surgery Consultation Date of Service: 03/23/2022 Time: 10.30 AM Referring Provider: Dwayne Rachel MD and Ofelia Rubalcava MD Primary Care Provider: Harshal Godfrey MD Reason for Consultation: and CAD History of Present Illness: I am seeing Marcelle Conner at the request of Harshal Godfrey for evaluation of Marcelle Conner is a 72 y.o. female with a [...] had a cardiac cath showing multi-vessel CAD. Past Medical History: Past Medical History: Diagnosis Date ??? Diabetes mellitus 02/04/2022 ??? Hypertension 02/04/2022 ??? Incisional hernia ??? Lung nodule 02/04/2022 Past Surgical History: Past Surgical History: Procedure Laterality Date ??? APPENDECTOMY ??? GALLBLADDER SURGERY ??? HERNIA REPAIR ??? HYSTERECTOMY, TOTAL ABDOMINAL ??? WRIST SURGERY Bilateral Family History: Family History Problem Relation Age of Onset ??? Hypertension Mother ??? Pacemaker Mother ??? Cerebrovascular Accident Mother ??? Cancer Father Social History: Social History Socioeconomic History ??? Marital status: Spouse name: Not on file ??? Number of children: Not on file ??? Years of education: Not on file ??? Highest education level: Not on file Occupational History ??? Occupation: [employer] ??? Occupation: retired Tobacco Use ??? Smoking status: Former Smoker ??? Smokeless tobacco: Never Used Vaping Use ??? Vaping Use: Never used Substance and Sexual Activity ??? Alcohol use: Yes Comment: rarely - 4 / year ??? Drug use: Never ??? Sexual activity: Not on file Other Topics Concern ??? Not on file Social History Narrative ??? Not on file Social Determinants of Health Financial Resource Strain: Not on file Food Insecurity: Not on file Transportation Needs: Not on file Physical Activity: Not on file Housing Stability: Not on file Allergies: No Known Allergies Current Medications: Current Outpatient Medications Ordered in [facility] Medication Sig Dispense Refill ??? multivitamin (THERAGRAN) Tablet Take 1 tablet [...] (with meals). ??? losartan (COZAAR) 100 mg Tablet Take 100 mg by mouth daily. ??? aspirin 81 mg EC tablet Take 81 mg by mouth daily. No current [facility]-ordered facility-administered medications on file. Review of Systems: Respiratory: positive for dyspnea on exertion Cardiovascular: negative for chest pain and chest pressure/discomfort All other ROS negative Physical Exam: Last set of vitals: BP 110/43 (Patient Position: Sitting) Pulse (!) 45 Ht 147.3 cm (4' 10) Comment: Reported Wt 103 kg (227 lb 1.6 oz) SpO2 90% BMI 47.46 kg/m?? General appearance: alert, appears stated age and cooperative Lungs: clear to auscultation bilaterally Heart: regular rate and rhythm, S1, S2 normal and systolic murmur: systolic ejection 4/6, crescendo at lower left sternal border Extremities: extremities normal, atraumatic, no cyanosis or edema Pertinent Labs: CBC: Lab Results Component Value Date WBC 16.3 (H) 03/23/2022 RBC 5.01 03/23/2022 BMP: Lab Results Component Value Date GLUCOSE 102 03/23/2022 CO2 18 (L) 03/23/2022 BUN 24 (H) 03/23/2022 CREATININE 0.95 03/23/2022 CALCIUM 9.3 03/23/2022 Coagulation: Lab Results Component Value Date PT 13.6 (H) 03/23/2022 INR 1.2 03/23/2022 Diagnostics: (I have independently visualized the following studies): ECHO: EF 60%. No RWMA Severe Mild MR Cardiac cath: Coronary Angiography: Dominance: Right Left Main There was a 50% single discrete stenosis of the ostial segment of the left main artery. Left Anterior Descending There was mild diffuse (<=25% stenosis) disease of the entire vessel segment of the left anterior descending artery (LAD). The ostial segment of the LAD had a single discrete 30% stenosis. Left Circumflex There was a 98% calcified long segmental stenosis of the proximal segment of the left circumflex artery (LCX). The LCX was large. Right Coronary Artery There was a 60% long segmental stenosis of the mid segment of the right coronary artery (RCA). The RCA was large. Assessment & Plan of Management: Marcelle Conner is a 72 year-old woman with severe, symptomatic aortic stenosis, multi-vessel CAD, and pulmonary HTN. She meets class I indications for AVR & CABG and would like to proceed with surgery. ?? Pre-op non-contrast CT: ascending aortic calcification but area for cross clamp. ?? Will need GI and pulmonary follow-up after surgery regarding mediastinal and liver nodules ?? Pre-admission testing completed ?? AVR & CABG scheduled for 03/26/22 ?? Patient prefers bioprosthetic valve Thank you for allowing me to participate in the care of Marcelle Conner Please do not hesitate to call with questions. Abdulkadir Raya MD, MS ground control approach technician Section of Cardiac Surgery [facility] Office: [phone] Pager: [phone] I spent a total of 45 minutes today in record review, medical counseling, coordination of care, medical decision-making, and documentation. documented in this encounter Plan of Treatment Upcoming Encounters Date Type Specialty Care Team Description 08/21/2022 Scheduled View Only Hematology Dameon Young MD [facility] [place] [address] Oncology Nikky Pak [address] [place] [address] 08/21/2022 TH Visit (TeleHealth) Reddy Thompson Oncology [facility] [address] [place] [address] (Wo rk) 08/21/2022 Infusion Hematology and Oncology 08/28/2022 Office Visit Reddy Thompson Oncology [facility] [address] [place] [address] (Wo rk) 08/28/2022 Infusion Hematology and Oncology 09/11/2022 Office Visit Hematology and Reddy Hernandez MD [facility] [place] [address] On[address] HEMATOLOGY AND [place], [place] [phone] 09/11/2022 Infusion Hematology and Oncology 09/18/2022 Office Visit Hematology and Nikky Pak, Oncology [address] HEMATOLOGY AND [place], [place] [id number] (Wo rk) 09/18/2022 Infusion Hematology and Oncology 03/10/2023 Office Visit Cardiology Ofelia Rubalcava MD [facility] [place] [address] (Wo rk) documented as of this encounter Results XR Chest PA & [...] have questions please contact the health care management associate that requested your imaging first. ? Narrative 03/23/2022 1:17 PM EDT EXAMINATION: XR [...] have questions please contact the health care management associate that requested your imaging first. Abdulkadir Raya MD IMG DX ORDERABLES (ABNORMAL) Urinalysis without microscopic (03/23/2022 12:08 PM EDT) [facility] Method Time Signature Glucose UA Negative Negative [facility] mg/dL [facility] Protein UA Trace (A) Negative [facility] mg/dL [facility] Bilirubin UA Negative Negative [facility] mg/dL [facility] Comment: Clinical correlation required for positi ve Urine Bilirubin results as false positive may occur with some drugs and d rug related products. If a false positive is suspected a serum total bili adair should be considered if clinically indicated. Urobilinogen UA Normal Normal mg/dL [facility] pH UA 6.0 5.0 - 8.0 [facility] Blood UA Negative Negative mg/dL [facility] Ketones UA Negative Negative mg/dL [facility] Nitrite UA Negative Negative [facility] Leukocytes UA Moderate (A) Negative mcL [facility] Appearance UA Turbid (A) Clear [facility] Spec [place] UA 1.021 1.005 - 1.030 [facility] Color UA Yellow Yellow [facility] Specimen Anatomical Collection Method Collection Time Receive d Time (Source) Location / / Volume Laterality Urine 03/23/2022 12:08 03/23/2022 PM EDT 12:19 PM EDT Resulting Agency Comment Spec In Lab Abdulkadir Raya MD URINE ORDERABLES Performing Organization Address City/[facility] [place] [address] (ABNORMAL) Prothrombin Time (03/23/2022 11:57 AM EDT) athologist Signature PT 13.6 (H) 9.4 - 12.5 [facility] LABORATORY INR 1.2 [facility] Comment: An INR <2.0 indicates [...] Raya MD HEMATOLOGY ORDERABLES Performing Organization Address City/[facility]/ZIP Code Phon e Number [place] [id number]OSP[address] LAB[address] Hepatic Function Panel (03/23/2022 11:57 AM EDT) athologist [facility] Total Protein 7.3 6.1 - 8.0 [facility] g/dL [facility] Albumin 4.0 3.2 - 5.2 [facility] g/dL [facility] AST 20 0 - 30 [facility] unit/L [facility] ALT 16 0 - 30 [facility] unit/L [facility] Alk Phos 59 35 - 105 [facility] unit/L [facility] Total 0.3 0.2 - 1.3 [place] Bilirubin mg/dL [facility] Bili, Direct 0.1 0.0 - 0.3 [facility] mg/dL [facility] Specimen Anatomical Collection Method Collection Time Receive d Time (Source) Location / / Volume Laterality Blood 03/23/2022 11:57 03/23/2022 AM EDT 12:14 PM EDT Resulting Agency Comment Spec In Lab Abdulkadir Raya MD CHEMISTRY ORDERABLES Performing Organization Address City/State/[place] [address] (ABNORMAL) Basic Metabolic Panel (non-fasting) (03/23/2022 11:57 AM EDT) [facility] Glucose Lvl 102 65 - 199 [facility] Comment: Diabetes: >=200 mg/dL plus symp toms BUN 24 (H) 8 - 18 mg/dL [facility] Creatinine 0.95 0.70 - 1.20 mg/dL [facility] Sodium 138 135 - 145 mmol/L [facility] Potassium 4.8 3.5 - 5.0 mmol/L [facility] Comment: Please note: ??Patients with WBC >100,00 0 may have falsely elevated Potassium levels. ??For accurate Potassium quantif ication in these patients send serum separator tube (gold top) for subsequent determinations. ??Contact the Clinical Chemistry Laboratory if there are any qu estions. Chloride 105 98 - 107 mmol/L [facility] CO2 18 (L) 22 - 31 mmol/L [facility] Anion Gap 15 5 - 15 mmol/L [facility] Calcium 9.3 8.5 - 10.5 mg/dL [facility] Estimated GFR 64 >=60 mL/min/1.73 m?? [facility] Comment: This patient's estimated GFR [...] Organization Address City/State/[place] [address] documented in this encounter Visit Diagnoses Diagnosis Aortic valve stenosis, etiology of cardi ac valve disease unspecified Aortic valve stenosis, etiology of cardi ac valve disease unspecified Colon cancer metastasized to liver Malignant neoplasm of colon, unspecified site documented in this encounter Care Teams Stars Specialist Relationship Specialty Start Date End Date Harshal Godfrey MD PCP - General Family Medicine 02/18/22 [address] [place] [address] documented as of this encounter
--- OUTSIDE RECORDS SUMMARY | 2022-08-21 01:38 | XMS_ITS | Encounter Summary ---
:1950 Author Organization [facility] [place] [address] Care Team Providers Name Role Phone Harshal Godfrey MD Primary Care Provider [phone] Encounter Details Date Type Department Care Team Description 02/24/2022 Orders Only Csr Technician David Klein, Screening for cardiovascular condition; [facility]3] Aortic valve stenosis, [facility] [place] [address] [place], [place] [phone] (Work) [phone] Social History Tobacco Use Types Packs/Day Years [...] MD [facility] [place] [address] Oncology Nikky Pak[address] HEMATOLOGY AND [place], [place] [phone] 08/21/2022 TH Visit (TeleHealth) Hematology and Reddy Hernandez , Oncology [facility] [address] [place], [place] [address] (Wo rk) 08/21/2022 Infusion Hematology and Oncology 08/28/2022 Office Visit Hematology and Reddy Hernandez Oncology [facility] [address] [place], [place] [address] (Wo rk) 08/28/2022 Infusion Hematology and Oncology 09/11/2022 Office Visit Hematology Reddy Young MD [facility] [place] [address] Oncology [address] HEMATOLOGY AND [place], [place] [phone] 09/11/2022 Infusion Hematology and Oncology 09/18/2022 Office Visit Hematology and Nikky Pak Oncology [address] [place] [address] (Wo rk) 09/18/2022 Infusion Hematology and Oncology 03/10/2023 Office Visit Cardiology Ofelia Rubalcava MD [facility] [address] [place], [place] [address] (Wo rk) documented as of this encounter Visit Diagnoses Diagnosis Screening for cardiovascular condition Screening for other and unspecified card iovascular conditions Aortic valve stenosis, severe Aortic valve disorders Colon cancer metastasized to liver Malignant neoplasm of colon, unspecified site documented in this encounter Care Teams Border Police Relationship Specialty Start Date End Date Harshal Godfrey MD PCP - General Family Medicine 02/18/22 [facility] [place] [address] documented as of this encounter
--- OUTSIDE RECORDS SUMMARY | 2022-08-21 01:38 | XMS_ITS | Encounter Summary ---
:1950 Author Organization [facility] [place] [address] Care Team Providers Name Role Phone Jasmeet Callejas MD Primary Care Provider [phone] Reason for Visit Reason Comments Skin Lesion Encounter Details Date Type Department Care Team Description 10/29/2011 Office Visit Dermatology Ruy Trejo, Lichen simplex [address] MD ruiz (Primary [address] Dx) [place], [place] DERMATOLOGY [address] [place] [address] [phone] (Wo rk) Social History Tobacco Use Types Packs/Day Years Used Date Smoking Tobacco: Never Financial Resource Strain Answer Date [...] documented as of this encounter Progress Notes Ruy Trejo MD - 10/29/2011 5:06 PM EST Problem: 1. Left perineal sore. 2. Itchy patch left arm. Marcelle is a 61-year-old woman whom I last saw in 2001 for a right foot plantar wart. For some time she has been having problems with hidradenitis suppurativa which has largely been untreated. She developed a new area on the left perineal area that has become inflamed and has drained from time to time. 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 Physical examination today reveals an erythematous patch on the left perineum with central ulceration with some post-inflammatory hyperpigmentation as well. The localization and the appearance of this appears to be consistent with a pressure sore. She does have healed scars consistent with hidradenitis in the axillary vaults and the submammary chest. The patient has an erythematous scaling patch appearing consistent with LSC on the left dorsal forearm. Assessment & Plan: Pressure sore left perineum. a. Recommended that we begin a course of Minocycline 100mg to be taken one p.o. BID for a month and a half then return to clinic, #60 dispensed with one refill. b. Recommended that the patient use a cushion to sit upon ideally a donut type cushion to keep pressure off of this area. Lichen simplex chronicus, left dorsal forearm. a. Prescription given for Betamethasone Dipropionate Cream apply on a BID basis to affected area until it clears, 30gm dispensed with one refill. Copy: Sheba Guy CNM MSN documented in this encounter Plan of Treatment Upcoming Encounters Date Type Specialty Care Team Description 08/21/2022 Scheduled View Only Hematology and Dameon Hernandez MD [facility] [place] [address] [address] HEMATOLOGY AND [place], [place] [address] 08/21/2022 TH Visit (TeleHealth) Hematology and Reddy Hernandez Oncology [facility] [place], [place] [address] (Wo rk) 08/21/2022 Infusion Hematology and Oncology 08/28/2022 Office Visit Hematology and Reddy Hernandez Oncology [facility] [place], [place] [address] (Wo rk) 08/28/2022 Infusion Hematology and Oncology 09/11/2022 Office Visit Hematology and Reddy Hernandez MD [facility] [place] [address] [address] HEMATOLOGY AND [place], [place] [phone] 09/11/2022 Infusion Hematology and Oncology 09/18/2022 Office Visit Hematology and Nikky Pak, Oncology [address] HEMATOLOGY AND [place], [place] [address] (Wo rk) 09/18/2022 Infusion Hematology and Oncology 03/10/2023 Office Visit Cardiology Ofelia Rubalcava MD [facility] [address] [place] [address] (Wo rk) documented as of this encounter Visit Diagnoses Diagnosis Lichen simplex chronicus - Primary Lichenification and lichen simplex chron icus Colon cancer metastasized to liver Malignant neoplasm of colon, unspecified site documented in this encounter Care Teams Store Facility Technician Relationship Specialty Start Date End Date Jasmeet Callejas MD PCP - General 08/26/10 02/17/[address] [place] [address] [place] [address] documented as of this encounter
--- OUTSIDE RECORDS SUMMARY | 2022-08-21 01:38 | XMS_ITS | Encounter Summary ---
:1950 Author Organization [facility] Address [address] [place] [address] Care Team Providers Name Role Phone Harshal Godfrey MD Primary Care Provider [phone] Encounter Details Date Type Department Care Team Description 02/26/2022 Orders Only Public Health at [facility] C Merari Ying Encounter for [facility] KALIE Rodriguez preproced ure screening [place] [address] COVID-19 Social History Tobacco Use Types Packs/Day [...] Hematology and Dameon Hernandez MD [facility] [place] [address] [address] [place], [place] [phone] 08/21/2022 TH Visit (TeleHealth) Hematology Reddy Young Oncology [facility] [address] [place], [place] [address] (Wo rk) 08/21/2022 Infusion Hematology and Oncology 08/28/2022 Office Visit Reddy Thompson Oncology [facility] [address] [place], [place] [address] (Wo rk) 08/28/2022 Infusion Hematology and Oncology 09/11/2022 Office Visit Reddy Thompson MD [facility] [place] [address] [address] [place], [place] [phone] 09/11/2022 Infusion Hematology and Oncology 09/18/2022 Office Visit Hematology and Nikky Pak Oncology [address] [place] AND [place], [place] [phone] (Wo rk) 09/18/2022 Infusion Hematology and Oncology 03/10/2023 Office Visit Cardiology Ofelia Rubalcava MD [facility] [place] [address] (Wo rk) documented as of this encounter Visit Diagnoses Diagnosis Encounter for preprocedure screening lab oratory testing for COVID-19 Colon cancer metastasized to liver Malignant neoplasm of colon, unspecified site documented in this encounter Care Teams Web Designer Relationship Specialty Start Date End Date Harshal Godfrey MD PCP - General Family Medicine 02/18/22 [facility] [place] [address] documented as of this encounter
--- OUTSIDE RECORDS SUMMARY | 2022-08-21 01:38 | XMS_ITS | Encounter Summary ---
:1950 [place] [address] Care Team Providers Name Role Phone Harshal Godfrey MD Primary Care Provider [phone] Encounter Details Date Type Department Care Team Description 03/19/2022 Surgery Mounting Machine Operator Dwayne Ochoa, CARDIAC CATHETERIZATION [facility] [place] [address] [place] [id number] [phone] (Wo rk) Social History Tobacco Use Types [...] Sign Reading Time Taken Comments Blood Pressure 111/63 03/19/2022 1:00 PM EDT Pulse 90 03/19/2022 1:00 PM EDT Temperature 36.5 ??C (97.7 ??F) 03/19/2022 10:12 AM EDT Respiratory Rate 22 03/19/2022 1:00 PM EDT Oxygen Saturation 91% 03/19/2022 1:00 PM EDT Inhaled Oxygen Concentration - - [...] please contact your inpatient physician through the [facility] Black Leather Trimmer . Issues after hours and on weekends [...] Rachel. Ahsan Mckeon MD PGY7 Interventional Cardiology [facility] documented in this encounter Plan of Treatment Upcoming Encounters Date Type Specialty Care Team Description 08/21/2022 Scheduled View Only Hematology and Dameon Hernandez MD [facility] [place] [address] Oncology Nikky Pak, LARGE ANIMAL VETERINARIAN [address] [place] [address] [place] [address] 08/21/2022 TH Visit (TeleHealth) Hematology and Reddy Hernandez , Oncology [facility] [place], [place] [address] (Wo rk) 08/21/2022 Infusion Hematology and Oncology 08/28/2022 Office Visit Hematology and Reddy Hernandez Oncology [facility] [place] [place] [address] (Wo rk) 08/28/2022 Infusion Hematology and Oncology 09/11/2022 Office Visit Hematology and Reddy Hernandez MD [facility] [place] [address] [address] HEMATOLOGY AND [place], [place] [id number] 09/11/2022 Infusion Hematology and Oncology 09/18/2022 Office Visit Hematology and LaRNikky stallworth, Oncology [address] HEMATOLOGY AND [place], [place] [id number] (Wo rk) 09/18/2022 Infusion Hematology and Oncology 03/10/2023 Office Visit Cardiology Ofelia Rubalcava MD [facility] [address] [place] [address] (Wo rk) documented as of this [...] Results POCT Glucose (03/19/2022 12:25 PM EDT) P athologist Signature POC Glucose 115 65 - [address] [facility] [facility] mg/dL [facility] Comment: Supplemental ranges: <140 mg/dL before meals <180 mg/dL all other times of the day Specimen Anatomical Collection Method Collection Time Receive d Time (Source) Location / / Volume Laterality Blood 03/19/2022 12:25 03/19/2022 PM EDT 12:25 PM EDT Dwayne Rachel MD POINT OF CARE TEST ORDERABLE S Performing Organization Address City/State/ZIP [place] [address] CARDIAC CATHETERIZATION (03/19/2022 12:15 PM EDT) Anatomical Region Laterality Modality Other Specimen (Source) Anatomical Location Collection Method / Collectio n Time Received Time / Laterality Volume Narrative 03/19/2022 6:24 PM EDT ?[facility] [place] [facility] ? Cardiac Cathete rization/Intervention Report ? Patient Name: Marcelle Conner. ? Procedure Date: 03/19/2022 ? A #: [id number] ? Primary Physician: Wilson, Dwayne Warren ? Case #: [id number] ? File Name: [id number] ? Catheterization Order Number: [id number] ? [facility] ? Final Report [place], [place] ? Patient Name: ? Marcelle A. Garret s ?ID#: ?[id number] ? : ?1950 ? Procedure Date: ? March 19, 2022 ?Case #: ? [id number] ? Room: ? 1 ? Case Physician: ? Makayla WesleyD. ?Start: ?11:24 ?Fellow: ? Vincent E G acad, M.D. ?Admission: ??03/19/2022 ? Referring Physician: ??Ofelia Villafana Gini ? Procedures: ?* Coronary Angiography ?* Right Heart Catheterization ?* Oximetry ? History ?Marcelle Conner is a 72 year ol d woman. The patient's smoking status is ?Never. The patient has hypercho lesterolemia managed with lipid therapy. ?She also has diabetes managed w ith oral medication. Prior to the ?initiation of this procedure, t he patient was designated as ASA Class ?III. The CSHA clinical frailty scale is 5: Mildly Frail. [...] 460 ms MUSE SYSTEM (Bezet) Calculated P Webster 73 degrees MUSE SYSTEM Calculated R Webster 66 degrees MUSE SYSTEM Calculated T Webster 83 degrees MUSE SYSTEM INTERPRETATION Sinus tachycardia [...] Signature POC Glucose 122 65 - [address] [facility] mg/dL [facility] Comment: Supplemental ranges: <140 mg/dL before meals <180 mg/dL all other times of the day Specimen Anatomical Collection Method Collection Time Receive d Time (Source) Location / / Volume Laterality Blood 03/19/2022 10:04 03/19/2022 AM EDT 10:04 AM EDT Abhinav Vences II, MD POINT OF CARE TEST ORDERABLE S Performing Organization Address City/State/[place] [address] documented in this encounter [...] MAR Action Action Date Dose Rate Site fentaNYL (pf) (50 mcg/mL) Given 03/19/2022 11:27 AM EDT 25 mcg Left Arm multi-dose injection ONCE PRN, Starting on Birgit 03/19/22 at 1127, Until Birgit 03/19/22 at 1213, Intra-Operative (Intra-Procedure), Routine heparin (porcine) (1,000 Given 03/19/2022 11:54 AM EDT 2,000 Uni ts Left Arm units/mL) injection ONCE PRN, Starting on Birgit 03/19/22 at 1140, Until Birgit 03/19/22 at 1213, Cath (Intra-Procedure), Routine Given 03/19/2022 11:40 AM EDT 5,000 Units Left Arm lidocaine (Xylocaine) 1% (10 mg/mL) Given 03/19/2022 11:24 AM ED T 3 mLs Right Arm injection ONCE PRN, Starting on Birgit 03/19/22 at 1122, Until Birgit 03/19/22 at 1213, Cath (Intra-Procedure), Routine Given 03/19/2022 11:22 AM EDT 3 mLs Righ t Arm midazolam (pf) (Versed) (1 mg/mL) Given 03/19/2022 11:27 AM EDT 1 mg Left Arm multi-dose injection ONCE PRN, Starting on Birgit 03/19/22 at 1127, Until Birgit 03/19/22 at 1213, Cath (Intra-Procedure), Routine sodium chloride 0.9% infusion New Bag 03/19/2022 10:23 AM EDT 50 mL/hr 50 mL/hr 50 mL/hr, Intravenous, CONTINUOUS, Starting on Birgit 03/19/22 at 1030, Until Birgit 03/19/22 at 1229, Cath (Day of Procedure) verapamiL (Isoptin) (2.5 mg/mL) injectio n Given 03/19/2022 11:28 AM EDT 2.5 mg ONCE PRN, Starting on Birgit 03/19/22 at 1128, Until Birgit 03/19/22 at 1213, Administer over 2 Minutes, Cath (Intra-Procedure) documented in this encounter Active and [...] Recovery (Recovery-Hospital Unit) PRN Medication Order 03/17/2022 03/18/202203/1903/19/2022 fentaNYL (PF) (50 mcg/mL) injection 25 mcg 25 mcg, Intravenous, EVERY 30 MIN PRN, S tarting on Birgit 03/19/22 at 1220, Until Birgit 6 at 1519, Pain, sheath removal, Maximum of 4 doses while in Cath Recovery Unit, Cath (Recovery-Hospital Unit), Routine fentaNYL (pf) (50 mcg/mL) multi-dose injection (CANCELED) 1127 (Given - Provider: Johnson Fleming, KALIE) ONCE PRN, Starting on Birgit 03/19/22 at 112 7, Until Birgit 03/19/22 at 1213, Intra- Operative (Intra-Procedure), Routine heparin (porcine) (1,000 units/mL) injection (CANCELED) 1140 (Given - Provider: Johnson Fleming, KALIE)1154 (Given - Provider: Duane Scott RN) ONCE [...] (Intra-Procedure) documented in this encounter Care Teams Features Editor Relationship Specialty Start Date End Date Harshal Godfrey MD PCP - General Family Medicine 02/18/22 [facility] [place] [address] documented as of this encounter
--- OUTSIDE RECORDS SUMMARY | 2022-08-21 01:38 | XMS_ITS | Encounter Summary ---
:1950 Author Organization [facility] [place] [address] Care Team Providers Name Role Phone Jasmeet Callejas MD Primary Care Provider [phone] Encounter Details Date Type Department Care Team Description 02/04/2022 Abstract Cardiology at [facility] Naomy Wahl RN [address] [facility] [place] [address] Social History Tobacco Use Types Packs/Day Years [...] 08/21/2022 Scheduled View Only Dameon Thompson MD [facility] [place] [address] Oncology Nikky Pak[address] HEMATOLOGY AND [place], [place] [address] 08/21/2022 TH Visit (TeleHealth) Hematology and Reddy Hernandez Oncology [facility] [address] [place], [place] [address] (Wo rk) 08/21/2022 Infusion Hematology and Oncology 08/28/2022 Office Visit Hematology and Reddy Hernandez Oncology [facility] [address] [place], [place] [address] (Wo rk) 08/28/2022 Infusion Hematology and Oncology 09/11/2022 Office Visit Sharon and Reddy Hernandez MD [facility] [place] [place] [address] Oncology Nik[address] Pak[address] HEMATOLOGY AND [place], [place] [phone] 09/11/2022 Infusion Hematology and Oncology 09/18/2022 Office Visit Hematology and Nikky Pak Oncology [address] HEMATOLOGY AND [place], [place] [address] (Wo rk) 09/18/2022 Infusion Hematology and Oncology 03/10/2023 Office Visit Cardiology Ofelia Rubalcava MD [facility] [place] [address] (Wo rk) documented as of this encounter Visit Diagnoses Not on filedocumented in this encounter Care Teams Medical Front Desk Coordinator Relationship Specialty Start Date End Date Jasmeet Callejas MD PCP - General 08/26/10 02/17/[address] [place] [address] [place] [address] documented as of this encounter
--- OUTSIDE RECORDS SUMMARY | 2022-08-21 01:38 | XMS_ITS | Encounter Summary ---
:1950 Author Organization [facility] [place] [address] Care Team Providers Name Role Phone Harshal Godfrey MD Primary Care Provider [phone] Reason for Referral Diagnostic Test (Routine) - Closed Specialty Diagnoses / Procedures Referred By Contact Refer red To Contact Radiology Diagnoses Aortic stenosis, severe [place], Cleo A, [facility] Rad Ct Scan Procedures CT Chest wo Contrast (Generic) PA [facility] [place] [address] [place] [address] Referral ID Status Reason Start Date Expiration Date Visits V isits Requested Authorized [id number] Closed Specialty 03/20/2022 09/19/2023 1 1 Service Requested Encounter Details Date Type Department Care Team Description 03/20/2022 Orders Only Cardiac Surgery [place], Aortic stenosis, [facility] [place] [address] CARDIAC SURGERY [place], [place] [address] Social History Tobacco Use Types [...] and Dameon Hernandez MD [facility] [place] [address] Oncology Nikky Pak [address] [place] [address] 08/21/2022 TH Visit (TeleHealth) Reddy Thompson Oncology [facility] [address] [place], [place] [address] (Wo rk) 08/21/2022 Infusion Hematology and Oncology 08/28/2022 Office Visit Reddy Thompson Oncology [facility] [address] [place], [place] [address] (Wo rk) 08/28/2022 Infusion Hematology and Oncology 09/11/2022 Office Visit Hematology and Reddy Hernandez MD [facility] [place] [address] On[address] Pak[address] HEMATOLOGY AND [place], [place] [phone] 09/11/2022 Infusion Hematology and Oncology 09/18/2022 Office Visit Hematology and Nikky Pak, Oncology [address] HEMATOLOGY AND [place], [place] [phone] (Wo rk) 09/18/2022 Infusion Hematology and Oncology 03/10/2023 Office Visit Cardiology Ofelia Rubalcava MD [facility] [address] [place], [place] [address] (Wo rk) documented as of this encounter Results (ABNORMAL) CT Chest wo [...] who have questions please contact the health rn intensive care unit that requested your imaging first. ? Narrative [...] Diagnosis Aortic stenosis, severe Aortic valve disorders Aortic stenosis, severe Aortic valve disorders Colon cancer metastasized to liver Malignant neoplasm of colon, unspecified site documented in this encounter Care Teams Microeconomics Professor Relationship Specialty Start Date End Date Harshal Godfrey MD PCP - General Family Medicine 02/18/[address] [place] [address] documented as of this encounter
[2022-08-21 09:11] LABS: Abs Immature Grans 0.05 10^3/uL (0.0-0.06); Absolute Basophil Count 0.08 10^3/uL (0.0-0.2); Absolute Eosinophil Count 0.35 10^3/uL (0.0-0.7); Absolute Lymphocyte Count 0.83 10^3/uL (1.2-3.4); Absolute Monocyte Count 1.26 10^3/uL (0.1-0.8); Absolute Neutrophil Count 6.77 10^3/uL (1.2-6.7); Basophils % 0.9; Eosinophils % 3.7; HCT 36.7 % (36.0-46.0); HGB 10.7 g/dL (11.2-15.7); Immature Grans % 0.5; Lymphocytes % 8.9; MCH 23.3 pg (27.0-33.0); MCHC 29.2 % (32.0-36.0); MCV 80 fL (80-95); Monocytes % 13.5; Neutrophils % 72.5; Platelet Count 264 10^3/uL (130-400); RBC 4.59 10^6/uL (3.93-5.22); RDW 25.5 % (11.7-14.6); RDW-SD 69.9 fL; WBC 9.34 10^3/uL (4.4-10.8)
[2022-08-21 09:29] LABS: Anisocytosis 1+; Macrocytosis 1+; Polychromasia Present
[2022-08-21 09:42] LABS: ALT 15 U/L (14-59); AST 17 U/L (15-37); Albumin 3.3 g/dL (3.4-5.0); Alkaline Phosphatase 72 U/L (46-116); Anion Gap 7.9 mmol/L (3-11); BUN 29 mg/dL (7-18); Bilirubin, Total 0.3 mg/dL (0.2-1.0); CO2 28.1 mmol/L (21.0-32.0); CREATININE 1.2 mg/dL (0.55-1.02); Calcium 9.7 mg/dL (8.5-10.1); Chloride 101 mmol/L (98-107); Estimated GFR 48.39 (mL/min/1.73m2); FREE T4 1.21 ng/dL (0.76-1.46); Glucose 106 mg/dL (74-106); Magnesium 1.6 mg/dL (1.8-2.4); Potassium 4.6 mmol/L (3.5-5.1); Sodium 137 mmol/L (136-145); TSH 1.23 uIU/mL (0.36-3.74); Total Protein 7.1 g/dL (6.4-8.2)
[2022-08-24 12:42] LABS: CA 19-9 1222 U/mL (<35)
== END 2022-08-21 01:33 | disposition home or self-care (01) ==
LOC: LBO 01:33
PROVIDERS: Visit Provider Internal Medicine Hematology & Oncology
DX: Z79.899 Other long term (current) drug therapy (principal); C22.1 Intrahepatic bile duct carcinoma; D50.9 Iron deficiency anemia, unspecified
CPT/HCPCS: 36415; 80053; 83735; 84439; 84443; 85025; 86301

== ENCOUNTER 2022-08-28 14:12 | Outpatient (CLI) | payer MEDICARE, SELFPAY ==
[2022-08-28 12:41] LABS: Abs Immature Grans 0.45 10^3/uL (0.0-0.06); Absolute Basophil Count 0.12 10^3/uL (0.0-0.2); Absolute Eosinophil Count 0.22 10^3/uL (0.0-0.7); Absolute Monocyte Count 1.02 10^3/uL (0.1-0.8); Basophils % 1.3; Eosinophils % 2.4; HCT 34.9 % (36.0-46.0); HGB 10.2 g/dL (11.2-15.7); Immature Grans % 4.9; Lymphocytes % 15.2; MCH 23.7 pg (27.0-33.0); MCHC 29.2 % (32.0-36.0); MCV 81 fL (80-95); MPV 8.2 fL (8.0-11.0); Monocytes % 11.1; Neutrophils % 65.1; Nucleated RBC 0.8 % (0.0-0.3); Platelet Count 263 10^3/uL (130-400); RDW 25.9 % (11.7-14.6); RDW-SD 73.9 fL; WBC 9.21 10^3/uL (4.4-10.8)
[2022-08-28 12:51] LABS: Anisocytosis 2+; Diff Comment RBC Morph Reviewed
[2022-08-28 13:06] LABS: ALT 15 U/L (14-59); AST 16 U/L (15-37); Albumin 3.3 g/dL (3.4-5.0); Alkaline Phosphatase 79 U/L (46-116); Anion Gap 5.5 mmol/L (3-11); BUN 28 mg/dL (7-18); Bilirubin, Total 0.4 mg/dL (0.2-1.0); CO2 29.5 mmol/L (21.0-32.0); CREATININE 1.2 mg/dL (0.55-1.02); Calcium 9.4 mg/dL (8.5-10.1); Chloride 101 mmol/L (98-107); Estimated GFR 48.39 (mL/min/1.73m2); FREE T4 1.29 ng/dL (0.76-1.46); Glucose 96 mg/dL (74-106); Magnesium 1.4 mg/dL (1.8-2.4); Potassium 4.8 mmol/L (3.5-5.1); Sodium 136 mmol/L (136-145); TSH 1.39 uIU/mL (0.36-3.74); Total Protein 7.3 g/dL (6.4-8.2)
[2022-08-31 12:41] LABS: CA 19-9 1002 U/mL (<35)
== END 2022-08-28 14:13 | disposition home or self-care (01) ==
LOC: LBO 14:12
PROVIDERS: Visit Provider Nurse Practitioner Adult Health
DX: Z79.899 Other long term (current) drug therapy (principal); C22.1 Intrahepatic bile duct carcinoma; D50.9 Iron deficiency anemia, unspecified
CPT/HCPCS: 36415; 80053; 83735; 84439; 84443; 85025; 86301

== ENCOUNTER 2022-09-11 12:34 | Outpatient (CLI) | payer MEDICARE, SELFPAY ==
[2022-09-11 09:08] LABS: Abs Immature Grans 0.05 10^3/uL (0.0-0.06); Absolute Basophil Count 0.08 10^3/uL (0.0-0.2); Absolute Eosinophil Count 0.31 10^3/uL (0.0-0.7); Absolute Lymphocyte Count 0.66 10^3/uL (1.2-3.4); Absolute Monocyte Count 1.28 10^3/uL (0.1-0.8); Absolute Neutrophil Count 5.82 10^3/uL (1.2-6.7); Eosinophils % 3.8; HCT 33.5 % (36.0-46.0); HGB 9.8 g/dL (11.2-15.7); Immature Grans % 0.6; MCH 25.1 pg (27.0-33.0); MCHC 29.3 % (32.0-36.0); MCV 86 fL (80-95); MPV 8.6 fL (8.0-11.0); Monocytes % 15.6; Platelet Count 256 10^3/uL (130-400); RDW 29.6 % (11.7-14.6); RDW-SD 87.4 fL
[2022-09-11 09:36] LABS: Anisocytosis 2+; Diff Comment RBC Morph Reviewed
[2022-09-11 09:59] LABS: ALT 17 U/L (14-59); AST 19 U/L (15-37); Albumin 3.2 g/dL (3.4-5.0); Alkaline Phosphatase 75 U/L (46-116); Anion Gap 6.2 mmol/L (3-11); BUN 21 mg/dL (7-18); Bilirubin, Total 0.3 mg/dL (0.2-1.0); CO2 29.8 mmol/L (21.0-32.0); CREATININE 1.1 mg/dL (0.55-1.02); Calcium 8.9 mg/dL (8.5-10.1); Chloride 102 mmol/L (98-107); Estimated GFR 53.72 (mL/min/1.73m2); FREE T4 1.23 ng/dL (0.76-1.46); Glucose 111 mg/dL (74-106); Magnesium 1.8 mg/dL (1.8-2.4); Potassium 4.6 mmol/L (3.5-5.1); Sodium 138 mmol/L (136-145); TSH 1.48 uIU/mL (0.36-3.74); Total Protein 6.7 g/dL (6.4-8.2)
[2022-09-14 12:17] LABS: CA 19-9 813 U/mL (<35)
== END 2022-09-11 12:35 | disposition home or self-care (01) ==
LOC: LBO 12:35
PROVIDERS: Visit Provider Nurse Practitioner Adult Health
DX: Z79.899 Other long term (current) drug therapy (principal); C22.1 Intrahepatic bile duct carcinoma; D50.9 Iron deficiency anemia, unspecified
CPT/HCPCS: 36415; 80053; 83735; 84439; 84443; 85025; 86301

== ENCOUNTER 2022-09-18 01:01 | Outpatient (CLI) | payer MEDICARE, SELFPAY ==
[2022-09-18 07:51] LABS: Abs Immature Grans 0.43 10^3/uL (0.0-0.06); HCT 35.1 % (36.0-46.0); HGB 10.5 g/dL (11.2-15.7); MCH 25.5 pg (27.0-33.0); MCHC 29.9 % (32.0-36.0); MCV 85 fL (80-95); MPV 8.3 fL (8.0-11.0); Platelet Count 273 10^3/uL (130-400); RBC 4.11 10^6/uL (3.93-5.22); RDW-SD 85.1 fL; WBC 8.24 10^3/uL (4.4-10.8)
[2022-09-18 08:30] LABS: Absolute Eosinophil Count 0.08 10^3/uL (0.0-0.7); Absolute Monocyte Count 0.66 10^3/uL (0.1-0.8); Absolute Neutrophil Count 5.36 10^3/uL (1.2-6.7); Atypical Lymphocytes % 8; Bands % 1; Metamyelocytes % 2; Myelocytes % 1
[2022-09-18 08:31] LABS: Anisocytosis 2+; Diff Comment Manual Differential; Polychromasia Present
[2022-09-18 08:33] LABS: ALT 21 U/L (14-59); AST 22 U/L (15-37); Albumin 3.3 g/dL (3.4-5.0); Alkaline Phosphatase 84 U/L (46-116); Anion Gap 8.9 mmol/L (3-11); BUN 28 mg/dL (7-18); Bilirubin, Total 0.4 mg/dL (0.2-1.0); CO2 27.1 mmol/L (21.0-32.0); CREATININE 1.3 mg/dL (0.55-1.02); Calcium 9.7 mg/dL (8.5-10.1); Chloride 99 mmol/L (98-107); Estimated GFR 43.96 (mL/min/1.73m2); FREE T4 1.24 ng/dL (0.76-1.46); Glucose 128 mg/dL (74-106); Magnesium 1.6 mg/dL (1.8-2.4); Potassium 4.4 mmol/L (3.5-5.1); Sodium 135 mmol/L (136-145); TSH 1.83 uIU/mL (0.36-3.74); Total Protein 7.1 g/dL (6.4-8.2)
[2022-09-21 12:49] LABS: CA 19-9 880 U/mL (<35)
== END 2022-09-18 01:02 | disposition home or self-care (01) ==
LOC: LBO 01:01
PROVIDERS: Visit Provider Internal Medicine Hematology & Oncology
DX: C22.1 Intrahepatic bile duct carcinoma (principal); Z79.899 Other long term (current) drug therapy
CPT/HCPCS: 36415; 80053; 83735; 84439; 84443; 85025; 86301

== ENCOUNTER 2022-10-02 03:05 | Outpatient (CLI) | payer MEDICARE, SELFPAY ==
[2022-10-02 09:41] LABS: Abs Immature Grans 0.08 10^3/uL (0.0-0.06); Absolute Basophil Count 0.08 10^3/uL (0.0-0.2); Absolute Eosinophil Count 0.27 10^3/uL (0.0-0.7); Absolute Lymphocyte Count 0.93 10^3/uL (1.2-3.4); Absolute Monocyte Count 1.59 10^3/uL (0.1-0.8); Absolute Neutrophil Count 6.25 10^3/uL (1.2-6.7); Basophils % 0.9; Eosinophils % 2.9; HCT 31.3 % (36.0-46.0); HGB 9.2 g/dL (11.2-15.7); Immature Grans % 0.9; Lymphocytes % 10.1; MCH 27.3 pg (27.0-33.0); MCHC 29.4 % (32.0-36.0); MCV 93 fL (80-95); MPV 9.1 fL (8.0-11.0); Monocytes % 17.3; Neutrophils % 67.9; Platelet Count 226 10^3/uL (130-400); RBC 3.37 10^6/uL (3.93-5.22); RDW 30.8 % (11.7-14.6); RDW-SD 102.5 fL
[2022-10-02 10:03] LABS: Anisocytosis 3+; Diff Comment Diff Reviewed; Hypochromasia 1+; Polychromasia Present
[2022-10-02 10:04] LABS: Poikilocytes 1+
[2022-10-02 10:05] LABS: ALT 25 U/L (14-59); AST 25 U/L (15-37); Albumin 3.3 g/dL (3.4-5.0); Alkaline Phosphatase 89 U/L (46-116); Anion Gap 8.9 mmol/L (3-11); BUN 31 mg/dL (7-18); Bilirubin, Total 0.4 mg/dL (0.2-1.0); CO2 25.1 mmol/L (21.0-32.0); CREATININE 1.5 mg/dL (0.55-1.02); Chloride 104 mmol/L (98-107); Estimated GFR 37.03 (mL/min/1.73m2); FREE T4 1.25 ng/dL (0.76-1.46); Glucose 118 mg/dL (74-106); Magnesium 2.1 mg/dL (1.8-2.4); Potassium 5.2 mmol/L (3.5-5.1); Sodium 138 mmol/L (136-145); TSH 1.44 uIU/mL (0.36-3.74)
[2022-10-05 10:26] LABS: CA 19-9 683 U/mL (<35)
== END 2022-10-02 03:06 | disposition home or self-care (01) ==
PROVIDERS: Visit Provider Nurse Practitioner Adult Health
DX: C22.1 Intrahepatic bile duct carcinoma (principal); Z79.899 Other long term (current) drug therapy; D50.9 Iron deficiency anemia, unspecified
CPT/HCPCS: 36415; 80053; 83735; 84439; 84443; 85025; 86301

== ENCOUNTER 2022-10-09 13:02 | Outpatient (CLI) | payer MEDICARE, SELFPAY ==
[2022-10-09 09:18] LABS: Abs Immature Grans 0.29 10^3/uL (0.0-0.06); Absolute Basophil Count 0.06 10^3/uL (0.0-0.2); Absolute Eosinophil Count 0.04 10^3/uL (0.0-0.7); Absolute Lymphocyte Count 0.57 10^3/uL (1.2-3.4); Absolute Neutrophil Count 4.49 10^3/uL (1.2-6.7); Basophils % 0.9; Eosinophils % 0.6; HCT 31.1 % (36.0-46.0); HGB 9.3 g/dL (11.2-15.7); Immature Grans % 4.5; Lymphocytes % 8.8; MCH 27.7 pg (27.0-33.0); MCHC 29.9 % (32.0-36.0); MCV 93 fL (80-95); MPV 8.2 fL (8.0-11.0); Monocytes % 15.5; Neutrophils % 69.7; Nucleated RBC 1.1 % (0.0-0.3); Platelet Count 186 10^3/uL (130-400); RBC 3.36 10^6/uL (3.93-5.22); RDW 27.9 % (11.7-14.6); RDW-SD 91.8 fL; WBC 6.45 10^3/uL (4.4-10.8)
[2022-10-09 09:42] LABS: ALT 21 U/L (14-59); AST 25 U/L (15-37); Albumin 3.2 g/dL (3.4-5.0); Alkaline Phosphatase 84 U/L (46-116); Anion Gap 7.4 mmol/L (3-11); BUN 25 mg/dL (7-18); Bilirubin, Total 0.3 mg/dL (0.2-1.0); CO2 27.6 mmol/L (21.0-32.0); CREATININE 1.3 mg/dL (0.55-1.02); Calcium 9.2 mg/dL (8.5-10.1); Chloride 101 mmol/L (98-107); Estimated GFR 43.96 (mL/min/1.73m2); Glucose 116 mg/dL (74-106); Magnesium 1.9 mg/dL (1.8-2.4); Potassium 4.8 mmol/L (3.5-5.1); Sodium 136 mmol/L (136-145); TSH 1.42 uIU/mL (0.36-3.74); Total Protein 6.7 g/dL (6.4-8.2)
[2022-10-12 09:58] LABS: CA 19-9 673 U/mL (<35)
== END 2022-10-09 13:03 | disposition home or self-care (01) ==
LOC: LBO 13:03
PROVIDERS: Nurse Practitioner Adult Health; Visit Provider Internal Medicine Hematology & Oncology
DX: C22.1 Intrahepatic bile duct carcinoma (principal); D50.9 Iron deficiency anemia, unspecified; Z79.899 Other long term (current) drug therapy
CPT/HCPCS: 80053; 83735; 84439; 84443; 85025; 86301

== ENCOUNTER 2022-10-30 00:57 | Outpatient (RCR) | payer MEDICARE, SELFPAY ==
[2022-10-23] MEDS: Normal Saline Flush 10 ML SYR IVP (09:51)
[2022-10-23 10:02] LABS: Abs Immature Grans 0.28 10^3/uL (0.0-0.06); Absolute Lymphocyte Count 1.88 10^3/uL (1.2-3.4); Basophils % 0.4; Eosinophils % 1.6; HCT 34.9 % (36.0-46.0); HGB 10.3 g/dL (11.2-15.7); Immature Grans % 1.4; Lymphocytes % 9.7; MCH 28.4 pg (27.0-33.0); MCHC 29.5 % (32.0-36.0); MCV 96 fL (80-95); MPV 9.9 fL (8.0-11.0); Monocytes % 13.3; Neutrophils % 73.6; Nucleated RBC 0.1 % (0.0-0.3); Platelet Count 419 10^3/uL (130-400); RBC 3.63 10^6/uL (3.93-5.22); RDW 26.9 % (11.7-14.6); WBC 19.43 10^3/uL (4.4-10.8)
[2022-10-23 10:04] LABS: Absolute Basophil Count 0.08 10^3/uL (0.0-0.2); Absolute Eosinophil Count 0.31 10^3/uL (0.0-0.7); Absolute Monocyte Count 2.58 10^3/uL (0.1-0.8)
[2022-10-23 10:23] LABS: Diff Comment Diff Reviewed
[2022-10-23 10:27] LABS: Anisocytosis 3+
[2022-10-23 10:31] LABS: Polychromasia Present
[2022-10-23 10:32] LABS: Poikilocytes 1+
[2022-10-23 10:36] LABS: ALT 38 U/L (14-59); AST 30 U/L (15-37); Albumin 3.5 g/dL (3.4-5.0); Alkaline Phosphatase 94 U/L (46-116); Anion Gap 8.3 mmol/L (3-11); BUN 33 mg/dL (7-18); Bilirubin, Total 0.4 mg/dL (0.2-1.0); CO2 28.7 mmol/L (21.0-32.0); CREATININE 1.5 mg/dL (0.55-1.02); Calcium 9.8 mg/dL (8.5-10.1); Chloride 99 mmol/L (98-107); Estimated GFR 37.03 (mL/min/1.73m2); FREE T4 1.17 ng/dL (0.76-1.46); Glucose 133 mg/dL (74-106); Sodium 136 mmol/L (136-145)
[2022-10-26 10:27] LABS: CA 19-9 668 U/mL (<35)
[2022-10-30] MEDS: Normal Saline Flush 10 ML SYR IVP (10:37)
[2022-10-30 10:54] LABS: Abs Immature Grans 0.14 10^3/uL (0.0-0.06); Absolute Basophil Count 0.05 10^3/uL (0.0-0.2); Absolute Eosinophil Count 0.08 10^3/uL (0.0-0.7); Absolute Lymphocyte Count 0.89 10^3/uL (1.2-3.4); Absolute Monocyte Count 1.11 10^3/uL (0.1-0.8); Basophils % 0.7; Eosinophils % 1.1; HGB 9.4 g/dL (11.2-15.7); Immature Grans % 1.9; Lymphocytes % 12.1; MCH 28.9 pg (27.0-33.0); MCHC 30.3 % (32.0-36.0); MCV 95 fL (80-95); MPV 8.9 fL (8.0-11.0); Monocytes % 15.1; Neutrophils % 69.1; Nucleated RBC 0.3 % (0.0-0.3); Platelet Count 251 10^3/uL (130-400); RBC 3.25 10^6/uL (3.93-5.22); RDW 22.7 % (11.7-14.6); RDW-SD 81.6 fL; WBC 7.37 10^3/uL (4.4-10.8)
[2022-10-30 10:58] LABS: ALT 27 U/L (14-59); AST 28 U/L (15-37); Albumin 3.3 g/dL (3.4-5.0); Alkaline Phosphatase 84 U/L (46-116); Anion Gap 6.5 mmol/L (3-11); BUN 31 mg/dL (7-18); Bilirubin, Total 0.5 mg/dL (0.2-1.0); CO2 29.5 mmol/L (21.0-32.0); CREATININE 1.3 mg/dL (0.55-1.02); Chloride 99 mmol/L (98-107); Estimated GFR 43.96 (mL/min/1.73m2); Glucose 98 mg/dL (74-106); Magnesium 1.8 mg/dL (1.8-2.4); Potassium 4.9 mmol/L (3.5-5.1); Sodium 135 mmol/L (136-145); Total Protein 6.8 g/dL (6.4-8.2)
[2022-10-30 11:20] LABS: Anisocytosis 2+; Diff Comment RBC Morph Reviewed
== END 2022-11-03 23:59 | disposition home or self-care (01) ==
LOC: INF 00:57
PROVIDERS: Visit Provider Internal Medicine Hematology & Oncology
DX: C22.1 Intrahepatic bile duct carcinoma (principal); D50.9 Iron deficiency anemia, unspecified; Z45.2 Encounter for adjustment and management of vascular access device
CPT/HCPCS: 36591; 80053; 83735; 84439; 84443; 85025; 86301

== ENCOUNTER 2022-11-20 00:19 | Outpatient (RCR) | payer MEDICARE, SELFPAY ==
[2022-11-13] MEDS: Normal Saline Flush 10 ML SYR IVP (10:43)
[2022-11-13 10:50] LABS: Abs Immature Grans 0.07 10^3/uL (0.0-0.06); Absolute Basophil Count 0.04 10^3/uL (0.0-0.2); Absolute Eosinophil Count 0.21 10^3/uL (0.0-0.7); Absolute Lymphocyte Count 0.84 10^3/uL (1.2-3.4); Absolute Monocyte Count 1.36 10^3/uL (0.1-0.8); Absolute Neutrophil Count 5.43 10^3/uL (1.2-6.7); Basophils % 0.5; Eosinophils % 2.6; HCT 29.4 % (36.0-46.0); HGB 8.7 g/dL (11.2-15.7); Immature Grans % 0.9; Lymphocytes % 10.6; MCH 30.2 pg (27.0-33.0); MCHC 29.6 % (32.0-36.0); MCV 102 fL (80-95); MPV 9.5 fL (8.0-11.0); Monocytes % 17.1; Neutrophils % 68.3; Platelet Count 221 10^3/uL (130-400); RBC 2.88 10^6/uL (3.93-5.22); RDW 21.5 % (11.7-14.6); RDW-SD 80.1 fL; WBC 7.95 10^3/uL (4.4-10.8)
[2022-11-13 11:14] LABS: ALT 35 U/L (14-59); AST 32 U/L (15-37); Albumin 3.3 g/dL (3.4-5.0); Alkaline Phosphatase 100 U/L (46-116); Anion Gap 6.8 mmol/L (3-11); BUN 36 mg/dL (7-18); Bilirubin, Total 0.4 mg/dL (0.2-1.0); CO2 29.2 mmol/L (21.0-32.0); CREATININE 1.4 mg/dL (0.55-1.02); Chloride 104 mmol/L (98-107); Estimated GFR 40.22 (mL/min/1.73m2); FREE T4 1.26 ng/dL (0.76-1.46); Glucose 114 mg/dL (74-106); Magnesium 2.2 mg/dL (1.8-2.4); Potassium 5.3 mmol/L (3.5-5.1); Sodium 140 mmol/L (136-145); TSH 1.11 uIU/mL (0.36-3.74); Total Protein 6.6 g/dL (6.4-8.2)
[2022-11-13 11:24] LABS: Anisocytosis 1+; Basophilic Stippling Present; Macrocytosis 1+
[2022-11-17 14:50] LABS: CA 19-9 532 U/mL (<35)
[2022-11-20] MEDS: Normal Saline Flush 10 ML SYR IVP (09:25)
[2022-11-20 09:32] LABS: Abs Immature Grans 0.23 10^3/uL (0.0-0.06); Absolute Basophil Count 0.06 10^3/uL (0.0-0.2); Absolute Eosinophil Count 0.05 10^3/uL (0.0-0.7); Absolute Lymphocyte Count 0.83 10^3/uL (1.2-3.4); Absolute Monocyte Count 1.16 10^3/uL (0.1-0.8); Absolute Neutrophil Count 3.19 10^3/uL (1.2-6.7); Basophils % 1.1; Eosinophils % 0.9; HCT 30.3 % (36.0-46.0); HGB 8.9 g/dL (11.2-15.7); Immature Grans % 4.2; MCH 29.9 pg (27.0-33.0); MCHC 29.4 % (32.0-36.0); MCV 102 fL (80-95); MPV 8.4 fL (8.0-11.0); Neutrophils % 57.8; Nucleated RBC 2.7 % (0.0-0.3); Platelet Count 173 10^3/uL (130-400); RBC 2.98 10^6/uL (3.93-5.22); RDW 19.7 % (11.7-14.6); RDW-SD 71.5 fL; WBC 5.52 10^3/uL (4.4-10.8)
[2022-11-20 09:56] LABS: ALT 36 U/L (14-59); AST 32 U/L (15-37); Albumin 3.2 g/dL (3.4-5.0); Alkaline Phosphatase 103 U/L (46-116); Anion Gap 7.3 mmol/L (3-11); BUN 24 mg/dL (7-18); Bilirubin, Total 0.4 mg/dL (0.2-1.0); CO2 27.7 mmol/L (21.0-32.0); CREATININE 1.3 mg/dL (0.55-1.02); Calcium 9.1 mg/dL (8.5-10.1); Chloride 100 mmol/L (98-107); Estimated GFR 43.96 (mL/min/1.73m2); Glucose 112 mg/dL (74-106); Magnesium 2.1 mg/dL (1.8-2.4); Sodium 135 mmol/L (136-145); TSH 1.64 uIU/mL (0.36-3.74); Total Protein 6.4 g/dL (6.4-8.2)
[2022-11-20 11:35] LABS: Iron 31 ug/dL (50-170); Total Iron Binding Capacity 312 ug/dL (250-450); Transferrin Sat 10 % (15-50)
[2022-11-20 11:47] LABS: Ferritin 272 ng/mL (8-252)
[2022-11-23 08:44] LABS: CA 19-9 523 U/mL (<35)
== END 2022-12-01 23:59 | disposition home or self-care (01) ==
LOC: INF 00:19
PROVIDERS: Visit Provider Internal Medicine Hematology & Oncology
DX: C22.1 Intrahepatic bile duct carcinoma (principal); Z79.899 Other long term (current) drug therapy; Z45.2 Encounter for adjustment and management of vascular access device; D50.9 Iron deficiency anemia, unspecified
CPT/HCPCS: 36591; 80053; 82728; 83540; 83550; 83735; 84439; 84443; 85025; 86301

== ENCOUNTER 2022-12-27 00:42 | Outpatient (RCR) | payer MEDICARE, SELFPAY ==
[2022-12-04] MEDS: Normal Saline Flush 10 ML SYR IVP (10:09)
[2022-12-04 10:15] LABS: Abs Immature Grans 0.08 10^3/uL (0.0-0.06); Absolute Basophil Count 0.05 10^3/uL (0.0-0.2); Absolute Eosinophil Count 0.19 10^3/uL (0.0-0.7); Absolute Lymphocyte Count 0.76 10^3/uL (1.2-3.4); Absolute Monocyte Count 1.72 10^3/uL (0.1-0.8); Absolute Neutrophil Count 8.53 10^3/uL (1.2-6.7); Basophils % 0.4; Eosinophils % 1.7; HCT 30.7 % (36.0-46.0); HGB 8.9 g/dL (11.2-15.7); Immature Grans % 0.7; Lymphocytes % 6.7; MCH 30.5 pg (27.0-33.0); MCV 105 fL (80-95); Monocytes % 15.2; Neutrophils % 75.3; Platelet Count 228 10^3/uL (130-400); RBC 2.92 10^6/uL (3.93-5.22); RDW 21.2 % (11.7-14.6); RDW-SD 81.5 fL; WBC 11.33 10^3/uL (4.4-10.8)
[2022-12-04 10:40] LABS: Anisocytosis 2+; Diff Comment RBC Morph Reviewed; Macrocytosis 2+
[2022-12-04 11:20] LABS: ALT 34 U/L (14-59); AST 29 U/L (15-37); Albumin 3.1 g/dL (3.4-5.0); Alkaline Phosphatase 111 U/L (46-116); Anion Gap 9.5 mmol/L (3-11); BUN 25 mg/dL (7-18); Bilirubin, Total 0.4 mg/dL (0.2-1.0); CO2 25.5 mmol/L (21.0-32.0); CREATININE 1.5 mg/dL (0.55-1.02); Calcium 8.9 mg/dL (8.5-10.1); Chloride 102 mmol/L (98-107); Estimated GFR 37.03 (mL/min/1.73m2); FREE T4 1.19 ng/dL (0.76-1.46); Glucose 104 mg/dL (74-106); Magnesium 2.5 mg/dL (1.8-2.4); Sodium 137 mmol/L (136-145); TSH 1.83 uIU/mL (0.36-3.74); Total Protein 6.1 g/dL (6.4-8.2)
[2022-12-07 11:25] LABS: CA 19-9 489 U/mL (<35)
[2022-12-11] MEDS: Normal Saline Flush 10 ML SYR IVP (09:19)
[2022-12-11 09:41] LABS: Abs Immature Grans 0.03 10^3/uL (0.0-0.06); Absolute Basophil Count 0.06 10^3/uL (0.0-0.2); Absolute Eosinophil Count 0.17 10^3/uL (0.0-0.7); Absolute Lymphocyte Count 0.86 10^3/uL (1.2-3.4); Absolute Neutrophil Count 4.13 10^3/uL (1.2-6.7); Basophils % 0.9; Eosinophils % 2.5; HCT 33.4 % (36.0-46.0); HGB 9.6 g/dL (11.2-15.7); Immature Grans % 0.4; Lymphocytes % 12.6; MCH 29.4 pg (27.0-33.0); MCHC 28.7 % (32.0-36.0); MCV 102 fL (80-95); MPV 9.5 fL (8.0-11.0); Monocytes % 23.4; Neutrophils % 60.2; RBC 3.27 10^6/uL (3.93-5.22); RDW 19.2 % (11.7-14.6); RDW-SD 72.2 fL; WBC 6.85 10^3/uL (4.4-10.8)
[2022-12-11 09:56] LABS: ALT 30 U/L (14-59); AST 30 U/L (15-37); Albumin 3.1 g/dL (3.4-5.0); Alkaline Phosphatase 95 U/L (46-116); Anion Gap 8.1 mmol/L (3-11); BUN 24 mg/dL (7-18); Bilirubin, Total 0.5 mg/dL (0.2-1.0); CO2 25.9 mmol/L (21.0-32.0); CREATININE 1.4 mg/dL (0.55-1.02); Calcium 8.8 mg/dL (8.5-10.1); Chloride 103 mmol/L (98-107); Estimated GFR 40.22 (mL/min/1.73m2); Glucose 89 mg/dL (74-106); Magnesium 1.3 mg/dL (1.8-2.4); Potassium 4.8 mmol/L (3.5-5.1); Sodium 137 mmol/L (136-145); Total Protein 6.1 g/dL (6.4-8.2)
[2022-12-11 10:00] LABS: Diff Comment Agrees w/ Instrument; Platelet Count 243 10^3/uL (130-400); RBC Morphology Normal
[2022-12-13 13:17] VITALS: BP 147/62; PULSE 94; RESP 22; TEMP 37.1; O2SAT 93
[2022-12-13] MEDS: Normal Saline Flush 10 ML SYR IVP (13:20)
[2022-12-13] MEDS: Heparin 500 UNITS/5 ML SYRINGE IV (13:20)
[2022-12-14 09:18] LABS: CA 19-9 463 U/mL (<35)
[2022-12-25] MEDS: Normal Saline Flush 10 ML SYR IVP (08:19)
[2022-12-25 08:43] LABS: Abs Immature Grans 0.05 10^3/uL (0.0-0.06); Absolute Eosinophil Count 0.26 10^3/uL (0.0-0.7); Absolute Lymphocyte Count 0.82 10^3/uL (1.2-3.4); Absolute Monocyte Count 1.66 10^3/uL (0.1-0.8); Basophils % 0.5; HCT 32.3 % (36.0-46.0); HGB 9.7 g/dL (11.2-15.7); Immature Grans % 0.4; Lymphocytes % 6.4; MCH 29.6 pg (27.0-33.0); MCV 99 fL (80-95); MPV 9.8 fL (8.0-11.0); Neutrophils % 77.7; Platelet Count 158 10^3/uL (130-400); RBC 3.28 10^6/uL (3.93-5.22); RDW 19.4 % (11.7-14.6); RDW-SD 70.3 fL; WBC 12.76 10^3/uL (4.4-10.8)
[2022-12-25 08:46] LABS: Absolute Basophil Count 0.06 10^3/uL (0.0-0.2); Absolute Neutrophil Count 9.91 10^3/uL (1.2-6.7)
[2022-12-25 08:58] LABS: ALT 28 U/L (14-59); AST 28 U/L (15-37); Albumin 3.4 g/dL (3.4-5.0); Alkaline Phosphatase 94 U/L (46-116); BUN 29 mg/dL (7-18); Bilirubin, Total 0.4 mg/dL (0.2-1.0); CREATININE 1.6 mg/dL (0.55-1.02); Calcium 9.3 mg/dL (8.5-10.1); Chloride 99 mmol/L (98-107); Estimated GFR 34.27 (mL/min/1.73m2); Glucose 101 mg/dL (74-106); Potassium 5.2 mmol/L (3.5-5.1); Sodium 132 mmol/L (136-145); Total Protein 6.6 g/dL (6.4-8.2)
[2022-12-25 09:04] LABS: Anisocytosis 1+; Diff Comment Diff Reviewed
[2022-12-25 09:54] LABS: Magnesium 1.9 mg/dL (1.8-2.4)
[2022-12-27 10:40] VITALS: BP 129/59; PULSE 80; RESP 20; TEMP 36.4; O2SAT 95
[2022-12-27] MEDS: Heparin 500 UNITS/5 ML SYRINGE IV (10:43)
[2022-12-27] MEDS: Normal Saline Flush 10 ML SYR IVP (10:43)
[2022-12-28 10:11] LABS: CA 19-9 462 U/mL (<35)
== END 2023-01-01 23:59 | disposition home or self-care (01) ==
LOC: INF 00:42
PROVIDERS: Visit Provider Internal Medicine Hematology & Oncology
DX: Z79.899 Other long term (current) drug therapy (principal); C22.1 Intrahepatic bile duct carcinoma; Z45.2 Encounter for adjustment and management of vascular access device
CPT/HCPCS: 36591; 80053; 96523; 83735; 84439; 84443; 85025; 86301

== ENCOUNTER 2023-01-24 00:08 | Outpatient (RCR) | payer MEDICARE, SELFPAY ==
[2023-01-02 00:09] VITALS: BP 129/59; PULSE 80; RESP 20; TEMP 36.4
[2023-01-08] MEDS: Normal Saline Flush 10 ML SYR IVP (10:05)
[2023-01-08 10:13] LABS: Abs Immature Grans 0.04 10^3/uL (0.0-0.06); Absolute Basophil Count 0.07 10^3/uL (0.0-0.2); Absolute Monocyte Count 1.65 10^3/uL (0.1-0.8); Basophils % 0.6; HCT 32.1 % (36.0-46.0); HGB 9.6 g/dL (11.2-15.7); Immature Grans % 0.3; Lymphocytes % 8.9; MCH 28.9 pg (27.0-33.0); MCHC 29.9 % (32.0-36.0); MCV 97 fL (80-95); MPV 9.8 fL (8.0-11.0); Monocytes % 14.3; Neutrophils % 72.9; Platelet Count 136 10^3/uL (130-400); RBC 3.32 10^6/uL (3.93-5.22); RDW 19.1 % (11.7-14.6); RDW-SD 68.3 fL; WBC 11.52 10^3/uL (4.4-10.8)
[2023-01-08 10:17] LABS: Absolute Eosinophil Count 0.35 10^3/uL (0.0-0.7); Absolute Lymphocyte Count 1.03 10^3/uL (1.2-3.4)
[2023-01-08 10:28] LABS: ALT 27 U/L (14-59); AST 28 U/L (15-37); Albumin 3.2 g/dL (3.4-5.0); Alkaline Phosphatase 99 U/L (46-116); Anion Gap 7.8 mmol/L (3-11); BUN 30 mg/dL (7-18); Bilirubin, Total 0.4 mg/dL (0.2-1.0); CO2 27.2 mmol/L (21.0-32.0); CREATININE 1.5 mg/dL (0.55-1.02); Chloride 102 mmol/L (98-107); Estimated GFR 37.03 (mL/min/1.73m2); Glucose 91 mg/dL (74-106); Potassium 5.3 mmol/L (3.5-5.1); Sodium 137 mmol/L (136-145); Total Protein 6.6 g/dL (6.4-8.2)
[2023-01-08 10:29] LABS: Diff Comment Diff Reviewed; RBC Morphology Normal
[2023-01-08 11:27] LABS: Magnesium 1.8 mg/dL (1.8-2.4)
[2023-01-10] MEDS: Normal Saline Flush 10 ML SYR IVP (12:05)
[2023-01-10] MEDS: Heparin 500 UNITS/5 ML SYRINGE IV (12:05)
[2023-01-11 12:54] LABS: CA 19-9 477 U/mL (<35)
[2023-01-22] MEDS: Normal Saline Flush 10 ML SYR IVP (09:24)
[2023-01-22 09:29] LABS: Abs Immature Grans 0.02 10^3/uL (0.0-0.06); Absolute Basophil Count 0.04 10^3/uL (0.0-0.2); Absolute Eosinophil Count 0.23 10^3/uL (0.0-0.7); Absolute Lymphocyte Count 0.82 10^3/uL (1.2-3.4); Absolute Monocyte Count 1.02 10^3/uL (0.1-0.8); Absolute Neutrophil Count 6.12 10^3/uL (1.2-6.7); Basophils % 0.5; Eosinophils % 2.8; HCT 29.8 % (36.0-46.0); HGB 9.2 g/dL (11.2-15.7); Immature Grans % 0.2; Lymphocytes % 9.9; MCHC 30.9 % (32.0-36.0); MCV 94 fL (80-95); MPV 10.1 fL (8.0-11.0); Monocytes % 12.4; Neutrophils % 74.2; Platelet Count 145 10^3/uL (130-400); RBC 3.17 10^6/uL (3.93-5.22); RDW 18.8 % (11.7-14.6); RDW-SD 64.5 fL; WBC 8.25 10^3/uL (4.4-10.8)
[2023-01-22 09:45] LABS: ALT 27 U/L (14-59); AST 25 U/L (15-37); Albumin 3.1 g/dL (3.4-5.0); Alkaline Phosphatase 97 U/L (46-116); Anion Gap 7.2 mmol/L (3-11); BUN 32 mg/dL (7-18); Bilirubin, Total 0.4 mg/dL (0.2-1.0); CO2 25.8 mmol/L (21.0-32.0); CREATININE 1.5 mg/dL (0.55-1.02); Calcium 9.4 mg/dL (8.5-10.1); Chloride 102 mmol/L (98-107); Estimated GFR 37.03 (mL/min/1.73m2); Glucose 91 mg/dL (74-106); Magnesium 1.6 mg/dL (1.8-2.4); Potassium 4.8 mmol/L (3.5-5.1); Sodium 135 mmol/L (136-145); Total Protein 6.8 g/dL (6.4-8.2)
[2023-01-24 11:54] VITALS: BP 135/64; PULSE 84; RESP 16; TEMP 36.2; O2SAT 98
[2023-01-24] MEDS: Normal Saline Flush 10 ML SYR IVP (11:57)
[2023-01-24] MEDS: Heparin 500 UNITS/5 ML SYRINGE IV (11:57)
[2023-01-25 09:34] LABS: CA 19-9 264 U/mL (<35)
== END 2023-01-31 23:59 | disposition home or self-care (01) ==
LOC: INF 00:08
PROVIDERS: Visit Provider Internal Medicine Hematology & Oncology
DX: C22.1 Intrahepatic bile duct carcinoma (principal); Z45.2 Encounter for adjustment and management of vascular access device; D50.9 Iron deficiency anemia, unspecified
CPT/HCPCS: 36591; 80053; 96523; 83735; 85025; 86301

== ENCOUNTER 2023-02-01 15:11 | Inpatient (IN) | payer MEDICARE, SELFPAY ==
[2023-02-01] VITALS (20 sets, daily range): BP systolic 86–165; BP diastolic 44–117; PULSE 80–162; RESP 16–26; TEMP 36.6–37; O2SAT 95–99
--- NOTE | 2023-02-01 15:15 | RT.EKG_ITS ---
APPROVED REPORT Exam: Resting ECG Reason for Exam: rapid heart rate Patient Location: E HR:142 bpm ECG Measurements Heart Rate 142 AXIS AR [id number] P [id number] QRSd 134 QRS 141 QT 327 T 17 QTc 503 Conclusion Atrial fibrillation...V-rate 96-174, irreg A-activity RBBB and LPFB...QRSd >120mS, axis(90,210) afib, rvr, RBBB
--- NOTE | 2023-02-01 16:00 | DI.RAD_ITS ---
Exam(s) XR PORTABLE CHEST AP EXAM: XR PORTABLE CHEST AP CLINICAL HISTORY: live ca, new afib. TECHNIQUE: 2D digital imaging was performed. COMPARISON: CT CT CHEST PE CTA from 02/01/2023 FINDINGS: Single AP portable view. There is sternotomy wires and mild cardiomegaly. Mediastinum not widened. Distal tip of the right supra clavi in Port-A-Cath is in the mid right atrium. Calcified mitral valve annulus noted in the heart. Left lung is clear. Mild increased markings in medial right lung base. No pleural effusions. IMPRESSION: Cardiac findings as above. No pulmonary edema or pleural effusions. However, there may be some infi ltrate in the right lower lobe, medially. DATA REPOSITORY: RADIATION DOSE DELIVERED:
--- NOTE | 2023-02-01 16:18 | ED.GENADUL_ITS ---
Discharge Plan Disposition Patient Disposition: Admit to [facility] Condition: Stable Discharge Details Chief Complaint: Arrhythmia Clinical Impression: Atrial fibrillation, Pneumonia Primary Care Provider: Unknown,Unknown ED Provider: Russell Overton Home Meds and New Rx's Prescriptions: No Action metformin 500 mg Tablet 500 mg PO BID clopidogrel [Plavix] 75 mg Tablet 75 mg PO DAILY simvastatin 20 mg Tablet 20 mg PO QHS aspirin 81 mg Tablet 81 mg PO DAILY metoprolol tartrate 25 mg tablet 50 mg BID magnesium oxide 400 mg magnesium Tablet 400 mg PO BID Eye Multivit (lutein-zeaxan) 888-34-81-2-5 mg Capsule 1 cap PO BID Medical Decision Making 72-year-old female undergoing chemotherapy for liver cancer last treatment 10 days ago presents with generalized fatigue and rapid heart rate, no chest pain or shortness of breath, noted to be in A-fib RVR, does appear dry with dry oral mucosa and dry skin, slight pallor. Consider hypovolemia versus electrolyte abnormality versus chemotherapeutic agent reaction versus infectious etiology versus must consider PE versus less likely ACS. Screening labs chest x-ray EKG patient did have 1 episode of hypotension to 82 systolic, will start with fluids before administering antiarrhythmic/rate control agents. 18: 24 patient appears clinically improved after fluid bolus, no respiratory distress, heart rate downtrending from 160s down to 130s A-fib RVR, patient is hypomagnesemic and hypokalemic likely related to an VAISHNAVI prerenal in nature, will continue with fluid hydration, will administer magnesium and calcium gluconate. Bedside ultrasound negative for pleural effusion or diffuse B-lines however patient does have dilated RV given new tachycardia right bundle branch block and history of cancer have ordered CT chest to assess for PE. Will allow time for electrolyte repletion and fluids to take effect before administering any rate control agents. However if still persistently tachycardic will consider adding diltiazem versus amiodarone 20 58 CTA negative for PE however evidence of multifocal pneumonia. Started on ceftriaxone azithromycin. Amiodarone started as I did not want to use calcium channel katlyn or beta-katlyn given patient's relative hypotension throughout hospital course. Will be admitted for further antibiotics fluids rate control HPI General Date/Time Provider Initiated Documentation: 02/01/23 15:17 . HPI Narrative: 72-year-old female currently undergoing chemotherapy for liver cancer last chemo session was 10 days ago presents with generalized fatigue, noted to be in A- fib, no history of A-fib, no chest pain or shortness of breath no history of thromboembolic disease Related Data Home Medications Medication Instructions Recorded Confirmed aspirin 81 mg tablet 81 mg PO DAILY 02/01/23 02/01/23 clopidogrel 75 mg tablet (Plavix) 75 mg PO DAILY 02/01/23 02/01/23 magnesium oxide 400 mg PO BID 02/01/23 02/01/23 metformin 500 mg tablet 500 mg PO BID 02/01/23 02/01/23 metoprolol tartrate 25 mg tablet 50 mg BID 02/01/23 02/01/23 simvastatin 20 mg tablet 20 mg PO QHS 02/01/23 02/01/23 vit C 250 mg-E 90 mg-zinc 40 1 cap PO BID 02/01/23 02/01/23 mg-copper 2 mg-lutein 5 mg-zeaxan capsule (Eye Multivitamin (lutein-zeaxan)) General Stated Complaint: Arrhythmia FRANCHESCA: 2 Review of Systems Narrative: Review of Systems Constitutional: Fatigue Eyes: negative ENT: negative Cardiovascular: Tachycardia Respiratory: negative Gastrointestinal: negative : negative Musculoskeletal: negative Skin: negative Neurologic: negative Psych: negative PFSH All Active Problems (Updated 02/01/23 @ 21:00 by Russell Overton MD) Atrial fibrillation (Chronic) Pneumonia (Acute) Social History Smoking/Tobacco Use Status: Never Smoking risk assessment performed?: Yes Alcohol Intake: former Drug use: Never Substance use type: does not use Do you feel safe at home: Yes Do you feel safe in your relationship?: Yes Exam Narrative Exam Narrative: Physical Examination General: alert, awake, cooperative, appears fatigued HEENT: normocephalic, atraumatic; PERRL, EOM intact, conjunctiva normal; no nasal discharge; slight drying of oral mucosa Neck: supple, trachea midline; full ROM Chest: normal to inspection Respiratory: normal respiratory effort, speaking in full sentences, clear to auscultation, no wheezing, rales or rhonchi Cardiac: Tachycardia, irregularly irregular, S1S2 intact, no murmurs rubs or gallops GI: abdomen soft, non-tender, non-distended; no palpable mass or hepatosplenomegaly Skin: Dry, pale Neuro: AAOx3, normal speech, moving all extremities Extremities: No peripheral edema noted Psych: Appropriate mood and affect Course Vital Signs Vital signs: Vital Signs Temperature 37 C 02/01/23 15:22 Pulse 130 H 02/01/23 15:22 Respiratory Rate 20 02/01/23 15:22 Blood Pressure 117/104 H 02/01/23 15:22 Pulse Oximetry 98 02/01/23 15:22 Temperature 37 C 02/01/23 15:22 Temperature Source Temporal Artery Scan 02/01/23 15:22 Pulse 130 H 02/01/23 15:22 Respiratory Rate 20 02/01/23 15:22 Respiratory Effort Normal, Non-Labored 02/01/23 16:15 Blood Pressure 117/104 H 02/01/23 15:22 Blood Pressure Position Sitting 02/01/23 15:22 Pulse Oximetry 98 02/01/23 15:22 Oxygen Delivery Method Room Air 02/01/23 15:22 Oxygen Flow Rate 0 02/01/23 15:22 Pain Level 0 02/01/23 15:22
[2023-02-01] MEDS: Normal Saline 500 ML 1000 ML IV (16:24)
[2023-02-01] MEDS: Aspirin 81 MG CHEW 324 MG CH (16:25)
[2023-02-01] MEDS: Ondansetron 4 MG/2 ML VIAL IVP (16:25)
[2023-02-01 16:32] LABS: Abs Immature Grans 0.08 10^3/uL (0.0-0.06); Absolute Lymphocyte Count 0.88 10^3/uL (1.2-3.4); Absolute Monocyte Count 1.65 10^3/uL (0.1-0.8); Absolute Neutrophil Count 13.63 10^3/uL (1.2-6.7); Basophils % 0.2; Eosinophils % 0.4; HCT 30.2 % (36.0-46.0); HGB 9.9 g/dL (11.2-15.7); Immature Grans % 0.5; Lymphocytes % 5.4; MCH 29.6 pg (27.0-33.0); MCHC 32.8 % (32.0-36.0); MCV 90 fL (80-95); MPV 9.9 fL (8.0-11.0); Monocytes % 10.1; Neutrophils % 83.4; Platelet Count 146 10^3/uL (130-400); RBC 3.34 10^6/uL (3.93-5.22); RDW 19.4 % (11.7-14.6); RDW-SD 62.9 fL; WBC 16.34 10^3/uL (4.4-10.8)
[2023-02-01 16:38] LABS: Absolute Basophil Count 0.03 10^3/uL (0.0-0.2); Absolute Eosinophil Count 0.07 10^3/uL (0.0-0.7)
[2023-02-01 16:45] LABS: INR 1.1 (0.9-1.1); PTT Activated 24.3 sec (21.5-31.9); Prothrombin Time 11.1 sec (9.3-11.0)
[2023-02-01 16:55] LABS: ALT 73 U/L (14-59); AST 112 U/L (15-37); Alkaline Phosphatase 121 U/L (46-116); Anion Gap 10.1 mmol/L (3-11); Bilirubin, Total 0.4 mg/dL (0.2-1.0); CO2 20.9 mmol/L (21.0-32.0); Chloride 100 mmol/L (98-107); NT-proBNP 16309 pg/mL (<300); Potassium 5.6 mmol/L (3.5-5.1); Sodium 131 mmol/L (136-145); TSH (W/Ref FT4) 1.35 uIU/mL (0.36-3.74)
[2023-02-01 16:58] LABS: Diff Comment Agrees w/ Instrument; RBC Morphology Normal
[2023-02-01 17:01] LABS: Albumin 2.6 g/dL (3.4-5.0); BUN 44 mg/dL (7-18); Calcium 8.9 mg/dL (8.5-10.1); Estimated GFR 26.22 (mL/min/1.73m2); Glucose 151 mg/dL (74-106); Magnesium 1.4 mg/dL (1.8-2.4)
[2023-02-01] MEDS: CALCIUM GLUCONATE in NaCl 1 GM/50 ML BAG IVPB (17:24)
--- NOTE | 2023-02-01 17:30 | DI.CT_ITS ---
Exam(s) CT CHEST PE CTA EXAM: CT CHEST PE CTA CLINICAL HISTORY: ca, tachy, enlarged RV. TECHNIQUE: Imaging Protocol: CT angiography of the chest was performed using pulmonary embolus destin col. Multi planar reconstructions were performed. CONTRAST MATERIAL: Intravenous: Omnipaque 350 Contrast volume: 100 cc COMPARISON: No exams were available for comparison FINDINGS: CHEST: PULMONARY ARTERIES: There are no intraluminal filling defects to suggest acute pulmonary emboli. LUNGS: There is significant infiltrate in the right lower lobe, medially, involving the posterior bas al and medial basal segments extending to the subcarinal region where there is significant adenopathy . There is no associated pleural effusion nor rib destruction. There is mild infiltrate also eviden t in the apical posterior segment of the left upper lobe adjacent to the major fissure.. There is a 4 millimeter noncalcified nodule in the right upper lobe. No pleural effusion on either side. MEDIASTINUM: There is prominent subcarinal adenopathy. Slightly enlarged right hilar lymph nodes not ed. No adenopathy in the anterior mediastinal fat. CARDIAC: Sternotomy wires. Heart size upper normal. No pericardial effusion. Coronary artery calci fication noted. Caliber of the thoracic aorta is within normal limits. No dissection. There is no s ignificant shift of the interventricular septum. PARTIALLY VISUALIZED UPPERMOST ABDOMEN: Partially calcified lesion in the left hepatic lobe noted. T hickening of both adrenal glands evident. OSSEOUS: No significant osseous lesions.. IMPRESSION: 1. No evidence of acute pulmonary emboli. 2. Prominent infiltrate in the medial aspect of the right lower lobe, specifically involving the post erior basal and medial basal segments and extending to the subcarinal region where there is significa nt adenopathy. Also mild right hilar adenopathy noted. Close follow-up of this infiltrate is recomm ended to rule out malignancy. 3. Mild infiltrate noted in the apical posterior segment of the left upper lobe. There are no pleura l effusions. Partially calcified lesion in the liver noted. First read by [facility]. Final report called by myself to ICU physician 02/02/2023 9:15 a.m. RADIATION DOSE DELIVERED: 433.31mGy.cm Total DLP DATA REPOSITORY: All CT scans at this facility are submitted to the National Radiology Data Registry (NRDR) Dose Index Registry (DIR) with the [employer] [place] [employer] (ACR). RADIATION OPTIMIZATION: All CT scans at this facility use at least one of these dose optimization te chniques: automated exposure control; mA and/or kV adjustment per patient size (includes targeted exa ms where dose is matched to clinical indication); or iterative reconstruction.
--- NOTE | 2023-02-01 17:49 | DI.VRAD_ITS ---
PROCEDURE INFORMATION: Exam: XR Chest Exam date and time: 02/01/2023 5:18 PM Age: 72 years old Clinical indication: Other: Arrythmia, prior surgery; Surgery date: 6+ months; Surgery type: Open heart surgery; Patient HX: Liver cancer diagnosed 2021 TECHNIQUE: Imaging protocol: Radiologic exam of the chest. Views: 1 view. COMPARISON: No relevant prior studies available. FINDINGS: Tubes, catheters and devices: Port-A-Cath right chest wall with tip in the superior vena cava/right atrium. Lungs: Low lung volumes. No consolidation. Pleural spaces: Unremarkable. No pleural effusion. No pneumothorax. Heart/Mediastinum: Cardiomegaly. Bones/joints: Median sternotomy wires. IMPRESSION: Cardiomegaly. Dictated and Authenticated by: Pablo Duran MD. Ordering:SANDER Wells MD
[2023-02-01] MEDS: Normal Saline Flush 10 ML SYR IVP (18:01)
[2023-02-01] MEDS: Omnipaque 350 MG/ML 100 ML BTL IJ (18:02)
[2023-02-01] MEDS: Normal Saline - Diluent 50 ML VIAL IJ (18:02)
--- NOTE | 2023-02-01 18:32 | DI.VRAD_ITS ---
PROCEDURE INFORMATION: Exam: CTA Chest With Contrast Exam date and time: 02/01/2023 6:05 PM Age: 72 years old Clinical indication: Other: CA, tachy, enlarged rv. Prior surgery; Surgery date: 6+ months; Surgery type: Open heart surgery; Patient HX: PT diangosed with liver CA 2021 TECHNIQUE: Imaging protocol: Computed tomographic angiography of the chest with contrast. 3D rendering (Not supervised by radiologist): MIP and/or 3D reconstructed images were created by the technologist. Radiation optimization: All CT scans at this facility use at least one of these dose optimization techniques: automated exposure control; mA and/or kV adjustment per patient size (includes targeted exams where dose is matched to clinical indication); or iterative reconstruction. Contrast material: OMNIPAQUE 350; Contrast volume: 99 ml; Contrast route: INTRAVENOUS (IV); COMPARISON: CR XR PORTABLE CHEST AP 02/01/2023 5:18 PM FINDINGS: Tubes, catheters and devices: Port-A-Cath right chest wall with tip in the superior vena cava. Pulmonary arteries: Normal. No pulmonary emboli. Aorta: Unremarkable. No aortic aneurysm. No aortic dissection. Lungs: Bilateral emphysematous lung disease. Right upper lobe 4 mm lung nodule. Left upper lobe 4 mm lung nodule. Mild airspace disease left upper lobe. Right lower lobe airspace disease and atelectasis. Partial lung consolidation right lower lobe posteromedial segment. Pleural spaces: Small right pleural effusion. Heart: Mild cardiomegaly. No pericardial effusion. Lymph nodes: Subcarinal adenopathy 3.6 cm. Liver: Post treatment changes left lobe of the liver. Adrenal glands: Bilateral adrenal gland enlargement/thickening. Bones/joints: Median sternotomy wires. Soft tissues: Unremarkable. IMPRESSION: 1. Right lower lobe pneumonia with consolidation. Mild left upper lobe pneumonia. 2. Subcarinal adenopathy. 3. Micro nodules. Fleischner Society follow up recommendations for incidental nodules are not indicated. Follow up per the patient's medical condition. 4. Bilateral adrenal gland thickening/enlargement. 5. Post treatment changes left lobe of the liver. Dictated and Authenticated by: Pablo Duran MD. Ordering:SANDER Wells MD
[2023-02-01] MEDS: MAGNESIUM SULFATE 1 GM/100 ML BAG IVPB (18:47)
[2023-02-01] MEDS: ACETAMINOPHEN 1,000 MG/100 ML BTL 400 MG IVPB (19:10)
[2023-02-01] MEDS: cefTRIAXone 2 GM/50 ML BAG 100 GM (19:41)
[2023-02-01 19:49] LABS: COVID-19 PCR Negative (Negative); Influenza A PCR Negative (Negative); Influenza B PCR Negative (Negative); RSV PCR Negative (Negative)
[2023-02-01 20:11] LABS: Source Nasopharynx
[2023-02-01] MEDS: Normal Saline 100 ML 600 ML (20:27)
[2023-02-01] MEDS: AZITHROMYCIN 500 MG in Normal Saline 250 ML 250 MG IVPB (20:43)
--- NOTE | 2023-02-01 21:25 | W.PM.HP.N ---
Date of service: 02/01/23 Time of Service: 21:25 Assessment and Plan Assessment and plan (1) Atrial fibrillation: Status: Chronic Assessment and plan: Will begin diltiazem drip, titrate for HR <100 bpm, SBP>100 mm, begin anticoagulation w/ heparin; check echocardiogram in the a.m., monitor troponin; 1st troponin was obtained several hours after she presented to the ED and was elevated at 203, however she denies any CP. This likely is demand ischemia but will trend results. She has known CAD but had CABG just last year. Continue Plavix and ASA. Amiodarone was given in the ED out of concern for dropping her BP further w/ diltiazem or lopressor; however, She has not been on chronic anticoagulation therefore I am concerned about conversion to SR and causing embolism. Critical care time spent interviewing and examining the patient, reviewing studies, discussing case with patient's nurse and consulting physicians was 60 minutes (2) Pneumonia: Status: Acute Assessment and plan: continue Rocephin 2 gm daily, I did not continue the azithromycin out of concern she was given amiodarone and potential QTC prolongation. I have put her on doxycycline. Encourage IS and Acapella, attempt to obtain sputum culture and mycoplasma PCR; check urine legionella and strep antigens. Will use scheduled atrovent aersols for her bronchospasms but use xopenex on a prn basis to try to avoid excess tachycardia. (3) Dehydration: Status: Acute Assessment and plan: continue iv fluids overnight, despite high BNP, she is not in acute HF. check echocardiogram in the morning. (4) Acute renal insufficiency: Status: Acute Assessment and plan: iv fluid hydration, monitor urine output, monitor BMP (5) Hypomagnesemia: Status: Acute Assessment and plan: replaced w/ iv magnesium; on oral magnesium; check repeat levels (6) Hyperkalemia: Status: Acute Assessment and plan: no acute intervention needed; monitor avoid potassium raising meds i.e. MONTY-I, ARB, spironolactone etc. (7) Coronary artery disease: Status: Chronic Assessment and plan: elevated troponin w/out symptoms of CP, monitor troponins, check echo; continue rate control of afib, ASA, Plavix, heparin (8) DVT prophylaxis: Status: Acute Assessment and plan: heparin drip (9) Discharge planning issues: Status: Acute Assessment and plan: Patient is full code per my discussion w/ her including CPR, intubation and mechanical ventilation and DCC/defibrillation. History of Present Illness History of Present Illness Chief Complaint: rapid irregular HR Narrative: 72 yr old female under chemotherapy treatment for liver cancer, last treatment 10 days ago, who presented from the cancer center to be evaluated for rapid, irregular HR. Upon placement of gambling monitor patient found to be in rapid atrial fibrillation, new onset. On arrival HR in the 130's. Patient admits to fatigue but denies dyspnea or CP. Patient was found to be dehydrated w/ dry oral mucosa. Patient has not fell well since her last chemotherapy 10 days ago. She has had nausea, dry heaves and diarrhea. Workup included routine labs including CMP, CBC, TSH, pro-BNP (but not troponin), coagulation profile. CMP was remarkable for pre-renal azotemia w/ BUN 44 and creatinine 2.0 (baseline 30 and 1.5), low CO2 of 20, AG 10, Mg 1.4, K 5.6, elevated LFT (AST 112, ALT 73, alkaline phosphatase 121, normal TSH 1.35. pro-BNP elevated at 16,300, Prothombin time 11.1 (INR 1.1), normal aPTT 24. EKG demonstrated rapid afib @ 142 bpm w/ RBBB and LPFB, ST depression across anterior precordial leads. Imaging included CXR that demonstrated cardiomegaly but reportedly no pulmonary infiltrates or effusions. CT chest was done to rule out PE and no PE was seen but demonstrated bilateral pneumonia w/ consolidation of RLL and MAXI , emphysema and RUL nodule 4 mm and MAXI nodule 4 mm, subcarinal adenopathy, mild cardiomegaly and small right pleural effusion and no pericardial effusion, bilateral adrenal gland enlargement. Treatment in the ED included 1 liter of NS bolus, blood cultures were obtained, patient was given Tylenol 1 gm and Rocephin 2 gm and azithromycin 500 mg all IV. She was bolused w/ amiodarone 150 mg for her afib rate control as she was mildly hypotensive even after the fluid bolus, w/ SBP high 80s and low 90s' to low 100's. Patient is admitted to the ICU for control of her rapid afib, to r/o ACS and to treat her CAP. Review of Systems Constitutional Constitutional: Reports fatigue, Denies fever(s), Reports lethargy, Reports malaise, Reports poor appetite and Reports weakness Eyes Eyes: Reports system reviewed and no additional complaints, except as documented and Reports requires corrective lenses ENT Ears, Nose, Mouth, and Throat: Reports system reviewed and no additional complaints, except as documented Cardiovascular Cardiovascular: Reports as per HPI, Denies chest pain, Denies syncope, Reports irregular heart rhythm, Denies leg edema, Denies lightheadedness, Denies radiating jaw, neck or arm pain, Denies palpitations and Denies dyspnea on exertion Respiratory Respiratory: Denies change in phlegm color, Reports cough, Reports excessive phlegm production and Denies dyspnea on exertion Gastrointestinal Gastrointestinal: Reports as per HPI, Denies abdominal pain, Reports diarrhea and Reports nausea Genitourinary Genitourinary: Reports system reviewed and no additional complaints, except as documented Musculoskeletal Musculoskeletal: Reports system reviewed and no additional complaints, except as documented Integumentary/Breasts Skin/Breast: Reports system reviewed and no additional complaints, except as documented Neurologic Neurologic: Reports system reviewed and no additional complaints, except as documented, Denies syncope and Reports weakness Endocrine Endocrine: Reports system reviewed and no additional complaints, except as documented, Reports fatigue and Denies palpitations Hematologic/Lymphatic Hematologic/Lymphatic: Reports system reviewed and no additional complaints, except as documented Allergic/Immunologic Allergic/Immunologic: Reports system reviewed and no additional complaints, except as documented PFSH All Active Problems (Updated 02/01/23 @ 23:11 by Bon Rivera MD) Discharge planning issues (Acute) DVT prophylaxis (Acute) Coronary artery disease (Chronic) Hyperkalemia (Acute) Hypomagnesemia (Acute) Acute renal insufficiency (Acute) Dehydration (Acute) Liver cancer (Acute) Atrial fibrillation (Chronic) Pneumonia (Acute) Medical History (Updated 02/01/23 @ 23:11 by Bon Rivera MD) PAF (paroxysmal atrial fibrillation) Strangulated hernia of abdominal wall Surgical History (Updated 02/01/23 @ 23:06 by Bon Rivera MD) History of cholecystectomy S/P aortic valve replacement (~03/2022) S/P CABG x 3 (~03/2022) S/P small bowel resection S/P APOLINAR-BSO S/P tubal ligation Social History Smoking/Tobacco Use Status: Never Smoking risk assessment performed?: Yes Alcohol Intake: former Drug use: Never Substance use type: does not use Do you feel safe at home: Yes Do you feel safe in your relationship?: Yes Meds Allergies and Home Medications Home Medications Medication Instructions Recorded Confirmed Type aspirin 81 mg tablet 81 mg PO DAILY 02/01/23 02/01/23 History clopidogrel 75 mg tablet (Plavix) 75 mg PO DAILY 02/01/23 02/01/23 History magnesium oxide 400 mg PO BID 02/01/23 02/01/23 History metformin 500 mg tablet 500 mg PO BID 02/01/23 02/01/23 History metoprolol tartrate 25 mg tablet 50 mg BID 02/01/23 02/01/23 History simvastatin 20 mg tablet 20 mg PO QHS 02/01/23 02/01/23 History vit C 250 mg-E 90 mg-zinc 40 1 cap PO BID 02/01/23 02/01/23 History mg-copper 2 mg-lutein 5 mg-zeaxan capsule (Eye Multivitamin (lutein-zeaxan)) Results Imaging Chest x-ray: report reviewed and image reviewed Abdomen CT scan report/results: report reviewed CT scan - chest: report reviewed CT scan - pelvis: report reviewed EKG: report reviewed and image reviewed Labs 02/01/23 16:08 02/01/23 16:08 Labs: Laboratory Results - last 24 hr 02/01/23 02/01/23 02/01/23 16:08 16:08 16:08 WBC 16.34 H RBC 3.34 L Hgb 9.9 L Hct 30.2 L MCV 90 MCH 29.6 MCHC 32.8 RDW 19.4 H Plt Count 146 MPV 9.9 Immature Gran % 0.5 Neutrophils % 83.4 Lymphocytes % 5.4 Monocytes % 10.1 Eosinophils % 0.4 Basophils % 0.2 Nucleated RBC % 0.0 Absolute Neutrophils 13.63 H Absolute Lymphocytes 0.88 L Absolute Monocytes 1.65 H Absolute Eosinophils 0.07 Absolute Basophils 0.03 RBC Morphology Normal PT 11.1 H INR 1.1 APTT 24.3 Sodium 131 L Potassium 5.6 H Chloride 100 Carbon Dioxide 20.9 L Anion Gap 10.1 BUN 44 H Creatinine 2.0 H Est GFR (CKD-EPI 2020) 26.22 Glucose 151 H Calcium 8.9 Magnesium 1.4 L Total Bilirubin 0.4 AST 112 H ALT 73 H Alkaline Phosphatase 121 H NT-Pro-B Natriuret Pep 34009 H Total Protein 7.0 Albumin 2.6 L TSH 1.35 COVID-19 Source SARS-CoV-2 (PCR) Influenza Type A (PCR) Influenza Type B (PCR) RSV (PCR) 02/01/23 19:00 WBC RBC Hgb Hct MCV MCH MCHC RDW Plt Count MPV Immature Gran % Neutrophils % Lymphocytes % Monocytes % Eosinophils % Basophils % Nucleated RBC % Absolute Neutrophils Absolute Lymphocytes Absolute Monocytes Absolute Eosinophils Absolute Basophils RBC Morphology PT INR APTT Sodium Potassium Chloride Carbon Dioxide Anion Gap BUN Creatinine Est GFR (CKD-EPI 2020) Glucose Calcium Magnesium Total Bilirubin AST ALT Alkaline Phosphatase NT-Pro-B Natriuret Pep Total Protein Albumin TSH COVID-19 Source Nasopharynx SARS-CoV-2 (PCR) Negative Influenza Type A (PCR) Negative Influenza Type B (PCR) Negative RSV (PCR) Negative Last Vital Signs Temp 37 C 02/01/23 15:22 Pulse 133 H 02/01/23 20:45 Resp 20 02/01/23 20:40 BP 165/117 H 02/01/23 20:45 Pulse Ox 98 02/01/23 20:40 Time Spent Time spent with Patient: 55-74 minutes Time was spent: preparing to see the patient(eg.review tests), obtaining and/or reviewing separately otained hiistory, ordering medications,tests, procedures, referring, communicating with other health critical care clinical nurse specialist (Dr. Overton), indepentently interpreting results, counseling the patient and care coordination
[2023-02-01 21:59] LABS: Troponin I 203 ng/L (<or=60)
[2023-02-01] MEDS: Normal Saline 1,000 ML 1000 ML IV (22:54)
[2023-02-01] MEDS: MAGNESIUM SULFATE 2 GM/50 ML BAG IVPB (22:55)
[2023-02-01] MEDS: dilTIAZem 125 MG in Normal Saline 100 ML IV (22:56)
[2023-02-02] VITALS (69 sets, daily range): BP systolic 92–132; BP diastolic 37–83; PULSE 73–147; RESP 1–30; TEMP 36.4–36.9; O2SAT 83–100
[2023-02-02] MEDS: DOXYCYCLINE 100 MG in Normal Saline 100 ML IVPB ×2 (00:02→13:43)
[2023-02-02] MEDS: Ipratropium 0.5 MG/2.5 ML UPD VIAL UPD (01:41)
[2023-02-02] MEDS: Levalbuterol 1.25 MG/3 ML UPD VIAL UPD (01:41)
[2023-02-02 01:55] LABS: Bilirubin Negative (Negative); Blood Negative (Negative); Clarity Sl Cloudy (Clear); Glucose Negative (Negative); Ketones Negative (Negative); Leukocyte Esterase Small (Negative); Nitrite Negative (Negative); Specific Gravity <= 1.005 (1.005-1.025); Urobilinogen 0.2 mg/dL (Up to 0.2); pH 5.5 (5-8)
[2023-02-02 02:05] LABS: Troponin I 156 ng/L (<or=60)
[2023-02-02 02:19] LABS: Bacteria Few HPF (Negative); C & S Indicated? Yes; Crystals Negative HPF (Negative); Epithelial Cells Rare HPF (Negative); Mucus Negative (Negative); RBC 0-2 HPF (0-2)
--- NOTE | 2023-02-02 04:55 | NUR.NOTE ---
2965-telephone update given to daughter Ailyn.
[2023-02-02 07:00] LABS: Abs Immature Grans 0.07 10^3/uL (0.0-0.06); Absolute Basophil Count 0.04 10^3/uL (0.0-0.2); Absolute Lymphocyte Count 0.99 10^3/uL (1.2-3.4); Absolute Monocyte Count 1.14 10^3/uL (0.1-0.8); Absolute Neutrophil Count 8.33 10^3/uL (1.2-6.7); Basophils % 0.4; Eosinophils % 1.9; HCT 26.8 % (36.0-46.0); HGB 8.6 g/dL (11.2-15.7); Immature Grans % 0.6; Lymphocytes % 9.2; MCH 29.4 pg (27.0-33.0); MCHC 32.1 % (32.0-36.0); MCV 92 fL (80-95); MPV 10.1 fL (8.0-11.0); Monocytes % 10.6; Neutrophils % 77.3; Platelet Count 119 10^3/uL (130-400); RBC 2.93 10^6/uL (3.93-5.22); RDW 19.2 % (11.7-14.6); RDW-SD 63.6 fL; WBC 10.77 10^3/uL (4.4-10.8)
[2023-02-02 07:18] LABS: ALT 68 U/L (14-59); AST 73 U/L (15-37); Albumin 2.3 g/dL (3.4-5.0); Alkaline Phosphatase 126 U/L (46-116); Anion Gap 10.2 mmol/L (3-11); BUN 38 mg/dL (7-18); Bilirubin, Total 0.2 mg/dL (0.2-1.0); CO2 21.8 mmol/L (21.0-32.0); CREATININE 1.7 mg/dL (0.55-1.02); Calcium 8.6 mg/dL (8.5-10.1); Chloride 106 mmol/L (98-107); Estimated GFR 31.86 (mL/min/1.73m2); Glucose 93 mg/dL (74-106); Potassium 4.1 mmol/L (3.5-5.1); Sodium 138 mmol/L (136-145)
[2023-02-02 07:21] LABS: Troponin I 126 ng/L (<or=60)
--- NOTE | 2023-02-02 08:36 | PDOC.CMIN ---
- If Service Date Differs Date of service: 02/02/23 Time of Service: 08:36 Care Management Initial Assess REASON FOR HOSPITALIZATION:: atrial fibrillation PAST MEDICAL HISTORY/PAST SURGICAL HISTORY:: All Active Problems (Updated 02/01/23 @ 23:11 by Bon Rivera MD). Discharge planning issues (Acute). DVT prophylaxis (Acute). Coronary artery disease (Chronic). Hyperkalemia (Acute). Hypomagnesemia (Acute). Acute renal insufficiency (Acute). Dehydration (Acute). Liver cancer (Acute). Atrial fibrillation (Chronic). Pneumonia (Acute). Medical History (Updated 02/01/23 @ 23:11 by Bon Rivera MD). PAF (paroxysmal atrial fibrillation). Strangulated hernia of abdominal wall. Surgical History (Updated 02/01/23 @ 23:06 by Bon Rivera MD). History of cholecystectomy. S/P aortic valve replacement (~03/2022). S/P CABG x 3 (~03/2022). S/P small bowel resection. S/P APOLINAR-BSO. S/P tubal ligation PREVIOUS FUNCTIONAL STATUS/SOCIAL/FAMILY SUPPORTS:: Marcelle lives in a one story, single family home in [place], [place] with her daughter who is disabled. She has a total of 6 children, most of whom are adopted. She has another daughter living next door to her and together they own and run a [employer]. Marcelle is independent at baseline and receives no community services. CURRENT FUNCTIONAL STATUS:: Marcelle was sitting up in bed when MARY met with her. She was pleasant in interaction and engaged easily with MARY. Marcelle shared a bit about her family with MARY. She has 6 children, 5 of which are adopted. All of her adopted children have special needs. Marcelle also informed MARY that she has liver cancer and is receiving chemotherapy every week. She anticipates that this will continue indefinitely as long as it appears to be effective. Marcelle displayed great spirit and a positive attitude about life in general and her diagnosis in particular. She described it as just a bump in the road. Marcelle shared that she continues to work about 50 hours a week. 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 ADVANCE DIRECTIVES:: none on file Has patient been provided with info about the portal/API?: Yes Did the patient sign up for the portal?: No CODE STATUS:: Full Code INSURANCE COVERAGE / FINANCIAL ISSUES:: Medicare A&B. [employer] supplements CURRENT HOME/COMMUNITY SERVICES/EQUIPMENT:: none POTENTIAL DISCHARGE NEEDS:: follow up with community providers and plan of care PATIENT/FAMILY EDUCATION NEEDS:: Review of discharge instructions, activity, limitations, follow up plan, discuss Ask Me Three TRANSPORTATION:: via private vehicle with family PLAN:: Anticipate Marcelle will be dicharged home with no new services when medically cleared by provider. She will follow up with her plan of care as prescribed and transport with family.CM will follow and assess for discharge needs
[2023-02-02] MEDS: Magnesium Oxide 400 MG TAB PO ×2 (09:04→19:51)
[2023-02-02] MEDS: Aspirin 81 MG CHEW PO (09:04)
[2023-02-02] MEDS: Beta-Carotene(A) w/C,E, & Minerals TAB 1 TAB PO ×2 (09:04→19:51)
[2023-02-02] MEDS: Metoprolol 12.5 MG TAB 50 MG PO (09:05)
[2023-02-02] MEDS: Clopidogrel 75 MG TAB PO (09:05)
[2023-02-02] MEDS: Normal Saline Flush 10 ML SYR IVP ×3 (09:05→14:13)
[2023-02-02] MEDS: Metoprolol 12.5 MG TAB PO ×2 (09:27→12:50)
[2023-02-02 11:09] LABS: PTT Activated 38.1 sec (21.5-31.9)
--- NOTE | 2023-02-02 11:30 | DI.US_ITS ---
APPROVED REPORT EXAM: Comprehensive 2D, Doppler, and color-flow Echocardiogram Patient Location: In-Patient Room/Bed: [id number] Exhibitor Sales: Rupali Miguel RDCS (AE) Indications: A Fib, Evaluate LV function, Bio AVR, CAD, CABG Other Information Study Quality: Fair. Technically limited study due to body habitus, inability to position patient exa m done bedside icu. Conclusion Normal left ventricular wall thickness and chamber size. Ejection fraction is 40 to 45%. There is g lobal hypokinesis Right ventricle is not well visualized Left atrium is moderately dilated. Right atrial size is normal There is a bioprosthetic aortic valve with a mean gradient of 16. There is no aortic regurgitation Thickened mitral leaflets. Moderate to severe mitral annular calcification. Mioderate mitral regurg itation Normal tricuspid valve with moderate to severe regurgitation. Estimated right ventricular systolic p ressure is 39 mmHg Wall motion Left Ventricle The left ventricle is normal size. Left ventricular systolic function is moderately decreased. Ther e is normal left ventricular wall thickness. There is global hypokinesis of the left ventricle. There is no ventricular septal defect visualized. LVEF is 40-45%. Right Ventricle Right ventricle is not well visualized. Right ventricular systolic function could not be assessed. Th e RVSP is 39.4_ mmHg. Atria Left atrium is moderately dilated. The right atrium size is normal. The interatrial septum is intact with no evidence for an atrial septal defect. Aortic Valve Mean gradient is 16 mmHg No aortic regurgitation is present. Bioprosthetic aortic valve is present. Mitral Valve Thickened mitral leaflets Moderate to severe mitral annular calcification. moderate mitral regurgita tion. Tricuspid Valve The tricuspid valve is normal in structure. There is no tricuspid valve stenosis. Moderate to severe tricuspid regurgitation. Pulmonic Valve The pulmonary valve is normal in structure. There is no pulmonic valvular stenosis. There is no pulm onic valvular regurgitation. Great Vessels The aortic root is normal in size. The ascending aorta is normal in size. Aortic arch is not well vis ualized. IVC is normal in size and collapses >50% with inspiration. Pericardium There is no pericardial effusion. 2D Dimensions IVSD d PLAX 1.05 cm F: 0.6-1.0 LV Vol A2C d MOD 118.6 mL LVPW d PLAX 1.00 cm F: 0.6 - 1.0 LV Vol A4C d MOD 123.4 mL LVID d PLAX 4.03 cm F: 3.8 - 5.2 LA vol/ BSA A2C s A-L 78.6 mL/m2 LVDs 3.30 cm F: 2.2 - 3.5 LA vol/ BSA A4C s A-L 47.9 mL/m2 Ao Root d 2.51 cm F: 2.7 - 3.3 LA Vol/ BSA Biplane s A-L 61.6 mL/m2 RA Area A4C 18.85 cm2 LA Area A4C s MOD 24.25 cm2 RA Vol/ BSA A4C s A-L 32.9 mL/m2 LA Area A2C s MOD 30.93 cm2 Ao Asc Diam d 2.64 cm F: 2.3 - 3.1 LV EF A4C MOD 40.0 % LV EF Teichholz 36.5 % LV EF A2C MOD 40.0 % LVEF (Muniz's) 40.30 % F: 54 - 74 LV EF Biplane MOD 40.3 % LV Volume 98.13 mL F: 46 - 106 SV 50.29 mL LV Volume Index 56.07 mL/m2 F: 29 - 61 SV Index 28.81 mL/m2 LV Vol Biplane MOD 124.8 mL FS 17.20 % LV Diastology MV E Vmax 1.55 (0.4-1.3 m/s) Aortic Valve LVOT Area 2.47 cm2 AoV Area Vmax 1.03 cm2 LVOT Vmax 1.16 m/s AoV Area/ BSA (Vmax) 0.59 cm2/m2 LVOT Mean Xander. 0.77 m/s RICHELLE Mean Xander. 0.97 cm2 LVOT Peak Grad 5.4 mmHg RICHELLE Mean Xander. Index 0.55 cm2/m2 LVOT Mean Grad 2.8 mmHg LVOT VTI 0.189 m LVOT Diam s 1.75 cm AoV Vmax 2.79 m/s Velocity Ratio 0.42 AoV Mean Xander. 1.97 m/s AoV Peak Grad 31.1 mmHg LVOT SV 46.60 mL AoV Mean Grad 17.5 mmHg AoV VTI 0.452 m AoV Area VTI 1.03 cm2 AoV Area/ BSA (VTI) 0.59 cm/m2 Mitral Valve MV DT 281 (160-240 msec) MV PHT 82 msec MV Area PHT 2.70 cm2 MV VTI 0.404 m MV Area VTI 1.15 (4.0-6.0 cm2) Pulmonary Valve PV Vmax 1.27 (0.5-1.5 m/s) RVOT Peak Gr. 1.77 mmHg PV Peak Grad 6.4 mmHg RVOT Mean Gr. 0.75 mmHg PV Mean Grad 2.9 mmHg RVOT VTI 0.078 m PV VTI 0.153 m RVOT Vmax 0.67 m/s Tricuspid Valve TR Peak Grad 36.3 mmHg TR Vmax 3.01 m/s RA Pressure 3.00 mmHg RVSP (TR) 39.4 mmHg
[2023-02-02] MEDS: Normal Saline 500 ML 10 ML IV (13:42)
[2023-02-02] MEDS: cefTRIAXone 2 GM/50 ML BAG IVPB (13:43)
--- NOTE | 2023-02-02 14:59 | PGE_ITS ---
Date of Service Date of service: 02/02/23 Time of Service: 14:59 Assessment and Plan Assessment and plan (1) Atrial fibrillation: Status: Chronic Assessment and plan: Cont diltiazem drip, titrate for HR <100 bpm, SBP>100 mm, begin anticoagulation w/ heparin Echo pending. [id number] score; at least a 3 (echo pending so unknown CHF). Initiated on heparin drip at time of admission; change to Eliquis. Troponin trend; 203>156>126.This likely is demand ischemia. She has known CAD but had CABG just last year. Continue Plavix and ASA. Amiodarone was given in the ED out of concern for dropping her BP further w/ diltiazem or lopressor; however, She has not been on chronic anticoagulation therefore I am concerned about conversion to SR and causing embolism. She has been continued on her home dose of metoprolol 12.5mg BID; will increase to 25mg BID in attempt to control heart rate and wean off diltiazem drip (as BP tolerates). (2) Pneumonia: Status: Acute Assessment and plan: continue Rocephin 2 gm daily and doxycycline. Encourage IS and Acapella, attempt to obtain sputum culture and mycoplasma PCR; check urine legionella and strep antigens. Cont atrovent aersols for her bronchospasms (change to prn) but use xopenex on a prn basis to try to avoid excess tachycardia. (3) Dehydration: Status: Acute Assessment and plan: Initially given IV fluids; now stopped. BNP elevated. Echocardiogram pending. (4) Acute renal insufficiency: Status: Acute Assessment and plan: Creatine improved from 2.0 to 1.7. Baseline in the mid 1's. (5) Hypomagnesemia: Status: Acute Assessment and plan: replaced w/ iv magnesium; on oral magnesium. Now normalized. (6) Hyperkalemia: Status: Acute Assessment and plan: no acute intervention needed. Now normalized. Monitor avoid potassium raising meds i.e. MONTY-I, ARB, spironolactone etc. (7) Coronary artery disease: Status: Chronic Assessment and plan: elevated troponin w/out symptoms of CP; demand ischemia. Trop trending down. continue rate control of afib, ASA, Plavix, AC. (8) DVT prophylaxis: Status: Acute Assessment and plan: heparin drip (9) Discharge planning issues: Status: Acute Assessment and plan: Improving. Anticipate 2 more days in hospital then possible D/C. HH. Subjective Subjective Patient reports: no new complaints, feels better and afebrile; denies shortness of breath Interval history since last seen: No palpitations. No CP. Exam Narrative Exam Narrative: General: Sitting on edge of bed. Conversant. NAD HEENT: Sclera clear. [place] Neck: No JVD Respiratory: Clear. normal respiratory effort, speaking in full sentences Cardiac: Tachycardia, irregularly irregular, S1S2 intact, no murmurs GI: abdomen soft, non-tender, non-distended Neuro: AAOx3, normal speech, moving all extremities Extremities: No peripheral edema noted Psych: Appropriate mood and affect. Speech normal. Objective Last Vital Signs Temp 36.4 C L 02/02/23 12:00 Pulse 90 02/02/23 14:01 Resp 25 H 02/02/23 14:01 BP 120/50 L 02/02/23 14:01 Pulse Ox 96 02/02/23 14:01 Laboratory Results - last 24 hr 02/01/23 02/01/23 02/01/23 16:08 16:08 16:08 WBC 16.34 H RBC 3.34 L Hgb 9.9 L Hct 30.2 L MCV 90 MCH 29.6 MCHC 32.8 RDW 19.4 H Plt Count 146 MPV 9.9 Immature Gran % 0.5 Neutrophils % 83.4 Lymphocytes % 5.4 Monocytes % 10.1 Eosinophils % 0.4 Basophils % 0.2 Nucleated RBC % 0.0 Absolute Neutrophils 13.63 H Absolute Lymphocytes 0.88 L Absolute Monocytes 1.65 H Absolute Eosinophils 0.07 Absolute Basophils 0.03 RBC Morphology Normal PT 11.1 H INR 1.1 APTT 24.3 Sodium 131 L Potassium 5.6 H Chloride 100 Carbon Dioxide 20.9 L Anion Gap 10.1 BUN 44 H Creatinine 2.0 H Est GFR (CKD-EPI 2020) 26.22 Glucose 151 H Calcium 8.9 Magnesium 1.4 L Total Bilirubin 0.4 AST 112 H ALT 73 H Alkaline Phosphatase 121 H Troponin I NT-Pro-B Natriuret Pep 68291 H Total Protein 7.0 Albumin 2.6 L TSH 1.35 Urine Color Urine Clarity Urine pH Ur Specific Kersey Urine Protein Urine Ketones Urine Blood Urine Nitrite Urine Bilirubin Urine Urobilinogen Ur Leukocyte Esterase Urine RBC Urine WBC Ur Epithelial Cells Urine Crystals Urine Bacteria Urine Mucus Ur Culture Indicated? Urine Glucose COVID-19 Source SARS-CoV-2 (PCR) Influenza Type A (PCR) Influenza Type B (PCR) RSV (PCR) 02/01/23 02/01/23 02/02/23 19:00 21:29 01:25 WBC RBC Hgb Hct MCV MCH MCHC RDW Plt Count MPV Immature Gran % Neutrophils % Lymphocytes % Monocytes % Eosinophils % Basophils % Nucleated RBC % Absolute Neutrophils Absolute Lymphocytes Absolute Monocytes Absolute Eosinophils Absolute Basophils RBC Morphology PT INR APTT Sodium Potassium Chloride Carbon Dioxide Anion Gap BUN Creatinine Est GFR (CKD-EPI 2020) Glucose Calcium Magnesium Total Bilirubin AST ALT Alkaline Phosphatase Troponin I 203 H* 156 H* NT-Pro-B Natriuret Pep Total Protein Albumin TSH Urine Color Urine Clarity Urine pH Ur Specific Kersey Urine Protein Urine Ketones Urine Blood Urine Nitrite Urine Bilirubin Urine Urobilinogen Ur Leukocyte Esterase Urine RBC Urine WBC Ur Epithelial Cells Urine Crystals Urine Bacteria Urine Mucus Ur Culture Indicated? Urine Glucose COVID-19 Source Nasopharynx SARS-CoV-2 (PCR) Negative Influenza Type A (PCR) Negative Influenza Type B (PCR) Negative RSV (PCR) Negative 02/02/23 02/02/23 02/02/23 01:40 05:55 05:55 WBC 10.77 RBC 2.93 L Hgb 8.6 L Hct 26.8 L MCV 92 MCH 29.4 MCHC 32.1 RDW 19.2 H Plt Count 119 L MPV 10.1 Immature Gran % 0.6 Neutrophils % 77.3 Lymphocytes % 9.2 Monocytes % 10.6 Eosinophils % 1.9 Basophils % 0.4 Nucleated RBC % 0.0 Absolute Neutrophils 8.33 H Absolute Lymphocytes 0.99 L Absolute Monocytes 1.14 H Absolute Eosinophils 0.20 Absolute Basophils 0.04 RBC Morphology PT INR APTT Sodium 138 Potassium 4.1 D Chloride 106 Carbon Dioxide 21.8 Anion Gap 10.2 BUN 38 H Creatinine 1.7 H Est GFR (CKD-EPI 2020) 31.86 Glucose 93 Calcium 8.6 Magnesium Total Bilirubin 0.2 AST 73 H ALT 68 H Alkaline Phosphatase 126 H Troponin I 126 H* NT-Pro-B Natriuret Pep Total Protein 6.0 L Albumin 2.3 L TSH Urine Color Yellow Urine Clarity Sl Cloudy Urine pH 5.5 Ur Specific Kersey <= 1.005 Urine Protein Negative Urine Ketones Negative Urine Blood Negative Urine Nitrite Negative Urine Bilirubin Negative Urine Urobilinogen 0.2 Ur Leukocyte Esterase Small H Urine RBC 0-2 Urine WBC 10-20 H Ur Epithelial Cells Rare Urine Crystals Negative Urine Bacteria Few Urine Mucus Negative Ur Culture Indicated? Yes Urine Glucose Negative COVID-19 Source SARS-CoV-2 (PCR) Influenza Type A (PCR) Influenza Type B (PCR) RSV (PCR) 02/02/23 02/02/23 05:55 10:50 WBC RBC Hgb Hct MCV MCH MCHC RDW Plt Count MPV Immature Gran % Neutrophils % Lymphocytes % Monocytes % Eosinophils % Basophils % Nucleated RBC % Absolute Neutrophils Absolute Lymphocytes Absolute Monocytes Absolute Eosinophils Absolute Basophils RBC Morphology PT INR APTT 38.1 H Sodium Potassium Chloride Carbon Dioxide Anion Gap BUN Creatinine Est GFR (CKD-EPI 2020) Glucose Calcium Magnesium 2.0 Total Bilirubin AST ALT Alkaline Phosphatase Troponin I NT-Pro-B Natriuret Pep Total Protein Albumin TSH Urine Color Urine Clarity Urine pH Ur Specific Kersey Urine Protein Urine Ketones Urine Blood Urine Nitrite Urine Bilirubin Urine Urobilinogen Ur Leukocyte Esterase Urine RBC Urine WBC Ur Epithelial Cells Urine Crystals Urine Bacteria Urine Mucus Ur Culture Indicated? Urine Glucose COVID-19 Source SARS-CoV-2 (PCR) Influenza Type A (PCR) Influenza Type B (PCR) RSV (PCR) Time Spent with Patient Time Spent with Patient: 35-49 minutes Time was spent: preparing to see the patient(eg.review tests), obtaining and/or reviewing separately otained hiistory, ordering medications,tests, procedures, referring, communicating with other health hospice home care coordinator, indepentently interpreting results and counseling the patient
[2023-02-02] MEDS: dilTIAZem 125 MG in Normal Saline 100 ML 7.5 MG IV (17:39)
[2023-02-02] MEDS: Insulin Aspart 300 UNITS/3 ML PEN SC (17:46)
[2023-02-02 17:56] LABS: PTT Activated 45.4 sec (21.5-31.9)
[2023-02-02 19:48] LABS: Legionella Ag Detection Urine Negative (Negative)
[2023-02-02] MEDS: Apixaban 5 MG TAB PO (19:51)
[2023-02-02] MEDS: Metoprolol 25 MG TAB PO (19:51)
[2023-02-03] VITALS (60 sets, daily range): BP systolic 96–139; BP diastolic 46–93; PULSE 50–155; RESP 16–38; TEMP 36–36.8; O2SAT 94–98
[2023-02-03] MEDS: DOXYCYCLINE 100 MG in Normal Saline 100 ML IVPB ×2 (00:39→12:32)
[2023-02-03] MEDS: diphenhydrAMINE 25 MG CAP PO (02:00)
[2023-02-03 07:11] LABS: Abs Immature Grans 0.07 10^3/uL (0.0-0.06); Absolute Basophil Count 0.04 10^3/uL (0.0-0.2); Absolute Eosinophil Count 0.25 10^3/uL (0.0-0.7); Absolute Lymphocyte Count 0.61 10^3/uL (1.2-3.4); Absolute Neutrophil Count 7.46 10^3/uL (1.2-6.7); Basophils % 0.4; Eosinophils % 2.7; HCT 24.6 % (36.0-46.0); HGB 7.8 g/dL (11.2-15.7); Immature Grans % 0.7; Lymphocytes % 6.5; MCHC 31.7 % (32.0-36.0); MCV 91 fL (80-95); Monocytes % 10.6; Neutrophils % 79.1; Platelet Count 142 10^3/uL (130-400); RBC 2.69 10^6/uL (3.93-5.22); RDW 19.2 % (11.7-14.6); RDW-SD 63.4 fL; WBC 9.43 10^3/uL (4.4-10.8)
[2023-02-03 07:36] LABS: ALT 70 U/L (14-59); AST 65 U/L (15-37); Albumin 2.2 g/dL (3.4-5.0); Alkaline Phosphatase 141 U/L (46-116); Anion Gap 9.2 mmol/L (3-11); BUN 38 mg/dL (7-18); Bilirubin, Total 0.3 mg/dL (0.2-1.0); CO2 22.8 mmol/L (21.0-32.0); CREATININE 1.5 mg/dL (0.55-1.02); Calcium 8.6 mg/dL (8.5-10.1); Chloride 105 mmol/L (98-107); Estimated GFR 37.03 (mL/min/1.73m2); Glucose 122 mg/dL (74-106); NT-proBNP 15362 pg/mL (<300); Potassium 4.3 mmol/L (3.5-5.1); Sodium 137 mmol/L (136-145); Total Protein 6.1 g/dL (6.4-8.2)
[2023-02-03] MEDS: Clopidogrel 75 MG TAB PO (07:53)
[2023-02-03] MEDS: Magnesium Oxide 400 MG TAB PO ×2 (07:53→20:37)
[2023-02-03] MEDS: Metoprolol 25 MG TAB PO ×2 (07:53→20:37)
[2023-02-03] MEDS: Apixaban 5 MG TAB PO ×2 (07:53→20:37)
[2023-02-03] MEDS: Normal Saline Flush 10 ML SYR IVP ×3 (07:53→16:09)
[2023-02-03] MEDS: Aspirin 81 MG CHEW PO (07:53)
[2023-02-03] MEDS: Beta-Carotene(A) w/C,E, & Minerals TAB 1 TAB PO ×2 (07:53→20:37)
[2023-02-03 08:02] LABS: Diff Comment Diff Reviewed; Hypochromasia 2+; Polychromasia Present
--- NOTE | 2023-02-03 08:36 | PDOC.CMPRO ---
- If Service Date Differs Date of service: 02/03/23 Time of Service: 08:36 Care Management Progress Note S/O:Marcelle was sitting up in a chair when CM met with her. She was in good spirits and stated she was feeling OK. She indicated that she had actually felt better yesterday. She explained that her cough is breaking up so she is coughing and expectorating more. Marcelle informed CM that she anticipates being discharged tomorrow. She asked that CM determine if her insurance will cover any new meds that might be ordered. CM assured her this would be done as soon as it is know which medications she will need. A: Marcelle is a 72 year old woman admitted on 02/01/23 with Pneumonia P:Anticipate Marcelle will be discharged home with no new services when medically cleared by provider. She will follow up with her plan of care as prescribed and transport with family.CM will follow and assess for discharge needs
[2023-02-03] MEDS: dilTIAZem 125 MG in Normal Saline 100 ML 10 MG IV (09:27)
[2023-02-03] MEDS: Furosemide 20 MG/2 ML VIAL IVP ×2 (09:28→16:09)
--- NOTE | 2023-02-03 10:06 | PHA.REVIEW2 ---
Pharmacy Admission Review - Admission Clinical Review (Last Updated 02/01/23 @ 23:06 by Bon Rivera MD) Discharge planning issues (Acute) DVT prophylaxis (Acute) Hyperkalemia (Acute) Hypomagnesemia (Acute) Acute renal insufficiency (Acute) Dehydration (Acute) Pneumonia (Acute) No Known Allergies Allergy (Unverified 02/02/23 05:43) Resuscitation Status Full Code Height 4 ft 10 in Weight 86.4 kg - Comments Comments/Follow Ups: dilt gtt started on 02/01 @ 2200 -- still attempting to wean, metoprolol increased, heparin gtt dc'd and apixaban started 02/02 - Renal Dosing Renal Dosing: BUN 38 mg/dL (7-18) H 02/03/23 06:00 Creatinine 1.5 mg/dL (0.55-1.02) H 02/03/23 06:00 Medications needing adjustments: Reviewed (eCrCl 30 ml/min) - Anticoagulation Anticoagulation: Hgb 7.8 g/dL (11.2-15.7) L 02/03/23 06:00 Hct 24.6 % (36.0-46.0) L 02/03/23 06:00 Plt Count 142 10^3/uL (130-400) 02/03/23 06:00 INR 1.1 (0.9-1.1) 02/01/23 16:08 Creatinine 1.5 mg/dL (0.55-1.02) H 02/03/23 06:00 Medications: Apixaban - Opiate Usage Evaluate Pain Scale/Pains Meds: N/A - Relevant Labs Sodium 137 mmol/L (136-145) 02/03/23 06:00 Potassium 4.3 mmol/L (3.5-5.1) 02/03/23 06:00 Chloride 105 mmol/L (98-107) 02/03/23 06:00 Magnesium 2.0 mg/dL (1.8-2.4) 02/02/23 05:55 Electrolytes, C-Reactive P, ESR: Reviewed - DM Control DM Control: Glucose 122 mg/dL (74-106) H 02/03/23 06:00 Finger Stick Blood Glucose 113 Finger Stick Blood Glucose 113 DM Control: Reviewed Insulin Dosing, Diabetic Medication: aspart per SS (NIDDM -- metformin at home) - Cardiac Review Cardiac Review: Troponin I 126 ng/L (<or=60) H* 02/02/23 05:55 NT-Pro-B Natriuret Pep 60699 pg/mL (<300) H 02/03/23 06:00 BP, HR, EF%: Reviewed List meds needing interventions: elev trop is likely demand ischemia; diltiazem gtt, metoprolol increased from 12.5 to 25 BID - Qtc Review QTc: Reviewed If Elevated, List meds needing intervention: QTc 503 on admission -- will watch for addition of qt prolonging meds - IV to PO Switch IV Medications: Reviewed - Home Meds Home Med List reviewed: Intervened Relevent Home Meds Not ordered & why?: metformin (ss insulin ordered), simvastatin -- will notify MD - Current meds Current Medication Order Review: Reviewed
[2023-02-03] MEDS: cefTRIAXone 2 GM/50 ML BAG IVPB (11:51)
[2023-02-03] MEDS: dilTIAZem 30 MG TAB PO ×3 (11:51→20:36)
[2023-02-03] MEDS: Insulin Aspart 300 UNITS/3 ML PEN SC (12:03)
--- NOTE | 2023-02-03 14:28 | PGE_ITS ---
Date of Service Date of service: 02/03/23 Time of Service: 14:29 Assessment and Plan Assessment and plan (1) Atrial fibrillation: Status: Chronic Assessment and plan: Diltiazem drip being discontinued; received first dose of oral cardizem 30mg po TID. Now on Eliquis for AC. [id number] score; 3. Troponin trend; 203>156>126.This likely is demand ischemia. She has known CAD but had CABG just last year. Continue Plavix and ASA. Amiodarone was given in the ED out of concern for dropping her BP further w/ diltiazem or lopressor; however, She has not been on chronic anticoagulation therefore I am concerned about conversion to SR and causing embolism. She has been continued on her home dose of metoprolol 12.5mg BID; has been increased to 25mg BID. (2) Pneumonia: Status: Acute Assessment and plan: continue Rocephin 2 gm daily and doxycycline. Encourage IS and Acapella, attempt to obtain sputum culture and mycoplasma PCR. Urine legionella negative. Strep urine antigen pending. Cont atrovent aersols for her bronchospasms (change to prn) but use xopenex on a prn basis to try to avoid excess tachycardia. (3) Acute renal insufficiency: Status: Acute Assessment and plan: Creatinine improved from 2.0 to 1.7 > 1.5. Baseline in the mid 1's. (4) Hypomagnesemia: Status: Acute Assessment and plan: replaced w/ iv magnesium; on oral magnesium. Now normalized. (5) Hyperkalemia: Status: Acute Assessment and plan: no acute intervention needed. Now normalized. Monitor avoid potassium raising meds i.e. MONTY-I, ARB, spironolactone etc. (6) Coronary artery disease: Status: Chronic Assessment and plan: elevated troponin w/out symptoms of CP; demand ischemia. Trop trending down. continue rate control of afib, ASA, Plavix, AC. Echocardiogram with EF of 40-45%. Global hypokinesis. Bioprosthetic aortic valve with mean gradient of 16. Moderate mitral regurgitation. Mod to severe tricuspi regurgitation. (7) DVT prophylaxis: Status: Acute Assessment and plan: Eliquis. (8) Discharge planning issues: Status: Acute Assessment and plan: Improving. Anticipate 2 more days in hospital then possible D/C. HH. (9) Diabetes mellitus: Status: Chronic Assessment and plan: Holding metformin. Given her reduced EF on echocardiogram, initiate Jardiance for both glucose control and CHF. Subjective Subjective Patient reports: no new complaints, tolerating a regular diet and afebrile; denies diarrhea, nausea, vomiting or shortness of breath Exam Narrative Exam Narrative: General: Sitting in recliner. Conversant. NAD Neck: No JVD Respiratory: Clear. normal respiratory effort. Cardiac: Irreg Irreg. Not tachy. GI: abdomen soft, non-tender, non-distended Neuro: AAOx3, normal speech, moving all extremities Extremities: No peripheral edema noted Psych: Appropriate mood and affect. Speech normal. Objective Last Vital Signs Temp 36.8 C 02/03/23 11:55 Pulse 74 02/03/23 12:02 Resp 18 02/03/23 12:02 BP 100/46 L 02/03/23 12:02 Pulse Ox 98 02/03/23 11:55 Laboratory Results - last 24 hr 02/02/23 02/02/23 02/03/23 01:40 17:30 00:20 WBC RBC Hgb Hct MCV MCH MCHC RDW Plt Count MPV Immature Gran % Neutrophils % Lymphocytes % Monocytes % Eosinophils % Basophils % Nucleated RBC % Absolute Neutrophils Absolute Lymphocytes Absolute Monocytes Absolute Eosinophils Absolute Basophils RBC Morphology Polychromasia Hypochromasia APTT 45.4 H Cancelled Sodium Potassium Chloride Carbon Dioxide Anion Gap BUN Creatinine Est GFR (CKD-EPI 2020) Glucose Calcium Total Bilirubin AST ALT Alkaline Phosphatase NT-Pro-B Natriuret Pep Total Protein Albumin Urine Legionella Ag Negative 02/03/23 02/03/23 06:00 06:00 WBC 9.43 RBC 2.69 L Hgb 7.8 L Hct 24.6 L MCV 91 MCH 29.0 MCHC 31.7 L RDW 19.2 H Plt Count 142 MPV 11.0 Immature Gran % 0.7 Neutrophils % 79.1 Lymphocytes % 6.5 Monocytes % 10.6 Eosinophils % 2.7 Basophils % 0.4 Nucleated RBC % 0.0 Absolute Neutrophils 7.46 H Absolute Lymphocytes 0.61 L Absolute Monocytes 1.00 H Absolute Eosinophils 0.25 Absolute Basophils 0.04 RBC Morphology See Below Polychromasia Present Hypochromasia 2+ APTT Sodium 137 Potassium 4.3 Chloride 105 Carbon Dioxide 22.8 Anion Gap 9.2 BUN 38 H Creatinine 1.5 H Est GFR (CKD-EPI 2020) 37.03 Glucose 122 H Calcium 8.6 Total Bilirubin 0.3 AST 65 H ALT 70 H Alkaline Phosphatase 141 H NT-Pro-B Natriuret Pep 59521 H Total Protein 6.1 L Albumin 2.2 L Urine Legionella Ag Time Spent with Patient Time Spent with Patient: 35-49 minutes Time was spent: preparing to see the patient(eg.review tests), obtaining and/or reviewing separately otained hiistory, ordering medications,tests, procedures, referring, communicating with other health manager urgent care and indepentently interpreting results
--- NOTE | 2023-02-03 15:00 | RT.EKG_ITS ---
APPROVED REPORT Exam: Resting ECG Reason for Exam: change in rhythm Patient Location: I HR:75 bpm ECG Measurements Heart Rate 75 AXIS CA [id number] P [id number] QRSd 157 QRS 98 QT 489 T 28 QTc 547 Conclusion Atrial flutter with varied AV block,...A-rate 300, varied AV conduction RBBB and LPFB...QRSd >120mS, axis(90,210)
[2023-02-03 16:00] LABS: Lab Add On Test DONE
[2023-02-03] MEDS: Empaglifozin 10 MG TAB PO (16:07)
[2023-02-03 16:40] LABS: Hemoglobin A1C 5.7 % (<5.7)
[2023-02-04] VITALS (45 sets, daily range): BP systolic 96–145; BP diastolic 45–87; PULSE 50–159; RESP 15–35; TEMP 36–36.7; O2SAT 93–98
[2023-02-04] MEDS: DOXYCYCLINE 100 MG in Normal Saline 100 ML IVPB ×3 (00:26→23:13)
[2023-02-04 08:28] LABS: HCT 26.2 % (36.0-46.0); HGB 8.3 g/dL (11.2-15.7)
--- NOTE | 2023-02-04 08:34 | PDOC.CMPRO ---
- If Service Date Differs Date of service: 02/04/23 Time of Service: 08:34 Care Management Progress Note S/O:Marcelle was sitting up in a chair when CM met with her. She remains in good spirits and engaged easily with CM. Marcelle had expressed concern about the potential expense of her medications and requested that CM contact her pharmacy to determine the cost. CM learned that her Apixaban would cosr $533 for the initial precription but that is because she has not met her deductible. Hereafter it will be $43/month. CM shared this information with Marcelle. While she would prefer a lower cost, she stated that she can afford it and wants to be on the best drug. Marcelle was hoping to discharge home today, however her heart rate is still not completely regulated and her blood pressure is a bit low. She will likely be discharged tomorrow. A: Marcelle is a 72 year old woman admitted on 02/01/23 with Pneumonia P:Anticipate Marcelle will be discharged home with no new services when medically cleared by provider. She will follow up with her plan of care as prescribed and transport with family.CM will follow and assess for discharge needs
[2023-02-04 08:38] LABS: Anion Gap 10.7 mmol/L (3-11); BUN 39 mg/dL (7-18); CO2 22.3 mmol/L (21.0-32.0); CREATININE 1.5 mg/dL (0.55-1.02); Chloride 102 mmol/L (98-107); Estimated GFR 37.03 (mL/min/1.73m2); Glucose 104 mg/dL (74-106); Potassium 4.2 mmol/L (3.5-5.1); Sodium 135 mmol/L (136-145)
[2023-02-04] MEDS: Clopidogrel 75 MG TAB PO (09:11)
[2023-02-04] MEDS: Empaglifozin 10 MG TAB PO (09:11)
[2023-02-04] MEDS: Metoprolol 25 MG TAB PO ×2 (09:11→20:50)
[2023-02-04] MEDS: Beta-Carotene(A) w/C,E, & Minerals TAB 1 TAB PO ×2 (09:11→20:49)
[2023-02-04] MEDS: Magnesium Oxide 400 MG TAB PO ×2 (09:11→20:50)
[2023-02-04] MEDS: Aspirin 81 MG CHEW PO (09:11)
[2023-02-04] MEDS: Apixaban 5 MG TAB PO ×2 (09:11→20:50)
[2023-02-04] MEDS: dilTIAZem 30 MG TAB PO (10:02)
[2023-02-04] MEDS: Furosemide 20 MG TAB PO ×2 (11:03→16:06)
[2023-02-04] MEDS: cefTRIAXone 2 GM/50 ML BAG IVPB (12:51)
--- NOTE | 2023-02-04 14:41 | W.PM.PROGNOT ---
Date of Service Date of service: 02/04/23 Time of Service: 14:41 Assessment and Plan Assessment and plan (1) Atrial fibrillation: Status: Chronic Assessment and plan: Diltiazem drip is off. Cont oral diltiazem and metoprolol. Now on Eliquis for AC. [id number] score; 3. Troponin trend; 203>156>126.This likely is demand ischemia. She has known CAD but had CABG just last year. Continue Plavix and ASA. Amiodarone was given in the ED out of concern for dropping her BP further w/ diltiazem or lopressor; however, She has not been on chronic anticoagulation therefore I am concerned about conversion to SR and causing embolism. She had been continued on her home dose of metoprolol 12.5mg BID; has been increased to 25mg BID. (2) Pneumonia: Status: Acute Assessment and plan: continue Rocephin 2 gm daily and doxycycline. Encourage IS and Acapella, attempt to obtain sputum culture and mycoplasma PCR. Urine legionella negative. Strep urine antigen pending. Cont atrovent aersols for her bronchospasms (change to prn) but use xopenex on a prn basis to try to avoid excess tachycardia. (3) Acute renal insufficiency: Status: Acute Assessment and plan: Creatinine improved from 2.0 to 1.7 > 1.5. Baseline in the mid 1's. (4) Hypomagnesemia: Status: Acute Assessment and plan: replaced w/ iv magnesium; on oral magnesium. Now normalized. (5) Hyperkalemia: Status: Acute Assessment and plan: no acute intervention needed. Now normalized. Monitor avoid potassium raising meds i.e. MONTY-I, ARB, spironolactone etc. (6) Coronary artery disease: Status: Chronic Assessment and plan: elevated troponin w/out symptoms of CP; demand ischemia. Trop trending down. continue rate control of afib, ASA, Plavix, AC. Echocardiogram with EF of 40-45%. Global hypokinesis. Bioprosthetic aortic valve with mean gradient of 16. Moderate mitral regurgitation. Mod to severe tricuspi regurgitation. (7) DVT prophylaxis: Status: Acute Assessment and plan: Eliquis. (8) Discharge planning issues: Status: Acute Assessment and plan: Improving. Anticipate discharge in AM pending stable BP and HR. (9) Diabetes mellitus: Status: Chronic Assessment and plan: Holding metformin. Given her reduced EF on echocardiogram, initiate Jardiance for both glucose control and CHF. Subjective Subjective Patient reports: no new complaints, feels better and afebrile; denies nausea, vomiting or shortness of breath Exam Narrative Exam Narrative: General: Sitting in recliner. Conversant. NAD Neck: No JVD Respiratory: Clear. normal respiratory effort. Cardiac: Irreg Irreg. Not tachy. GI: abdomen soft, non-tender, non-distended Neuro: AAOx3, normal speech, moving all extremities Extremities: No peripheral edema noted Psych: Appropriate mood and affect. Speech normal. Objective Last Vital Signs Temp 36.5 C 02/04/23 13:39 Pulse 76 02/04/23 13:39 Resp 18 02/04/23 13:39 BP 115/47 L 02/04/23 13:39 Pulse Ox 95 02/04/23 13:39 Laboratory Results - last 24 hr 02/03/23 02/03/23 02/04/23 06:00 06:00 08:10 Hgb 8.3 L Hct 26.2 L Sodium Potassium Chloride Carbon Dioxide Anion Gap BUN Creatinine Est GFR (CKD-EPI 2020) Glucose Hemoglobin A1c 5.7 Calcium Add-On Test Request DONE 02/04/23 08:10 Hgb Hct Sodium 135 L Potassium 4.2 Chloride 102 Carbon Dioxide 22.3 Anion Gap 10.7 BUN 39 H Creatinine 1.5 H Est GFR (CKD-EPI 2020) 37.03 Glucose 104 Hemoglobin A1c Calcium 9.0 Add-On Test Request Time Spent with Patient Time Spent with Patient: 25-34 minutes Time was spent: preparing to see the patient(eg.review tests), ordering medications,tests, procedures, referring, communicating with other health family day care provider and indepentently interpreting results
[2023-02-04 14:50] LABS: Streptococcus Pneumoniae Ag, U Negative (Negative)
[2023-02-04] MEDS: dilTIAZem 30 MG TAB 60 MG PO (18:24)
[2023-02-04] MEDS: Normal Saline Flush 10 ML SYR IVP (20:55)
[2023-02-05] VITALS (17 sets, daily range): BP systolic 122–123; BP diastolic 57–63; PULSE 75–101; RESP 16–27; TEMP 36.1–36.5; O2SAT 97
[2023-02-05] MEDS: dilTIAZem 30 MG TAB 60 MG PO (05:16)
[2023-02-05 06:19] LABS: Magnesium 1.4 mg/dL (1.8-2.4)
[2023-02-05] MEDS: Apixaban 5 MG TAB PO (08:23)
[2023-02-05] MEDS: Clopidogrel 75 MG TAB PO (08:23)
[2023-02-05] MEDS: Empaglifozin 10 MG TAB PO (08:23)
[2023-02-05] MEDS: Beta-Carotene(A) w/C,E, & Minerals TAB 1 TAB PO (08:23)
[2023-02-05] MEDS: Aspirin 81 MG CHEW PO (08:23)
[2023-02-05] MEDS: Furosemide 20 MG TAB PO (08:24)
[2023-02-05] MEDS: Metoprolol 25 MG TAB PO (08:24)
[2023-02-05] MEDS: Magnesium Oxide 400 MG TAB PO (08:24)
--- NOTE | 2023-02-05 08:34 | NUR.NOTE ---
Patient is set up with her breakfast.Nursing Note:
--- NOTE | 2023-02-05 09:04 | W.PM.DS.N ---
Date of service: 02/05/23 Time of Service: 09:04 DS: Diagnosis Discharge Diagnosis (1) Atrial fibrillation: Status: Chronic Asessment and Plan: Initially on diltiazem drip. Increased her usual home dose of metoprolol. Converted from IV to oral cardizem and titrated to effectiveness. [id number] score of 3. Eliquis initiated. (2) Pneumonia: Status: Acute Asessment and Plan: Treated with rocephin and doxycycline. D/C on cefpodoxime 200mg BID for 5 days. (3) Acute renal insufficiency: Status: Acute Asessment and Plan: Secondary to volume depletion. Creatinine improved from 2.0 to 1.7; baseline in the mid 1's. (4) Hypomagnesemia: Status: Acute Asessment and Plan: Repleted. (5) Hyperkalemia: Status: Acute Asessment and Plan: Resolved. (6) Coronary artery disease: Status: Chronic Asessment and Plan: Troponin 203 > 126. Demand ischemia. Cont ASA, Plavix, BB. (7) Discharge planning issues: Status: Acute Asessment and Plan: Home with no new services. PCP follow up in 1-2 weeks. (8) Diabetes mellitus: Status: Chronic Asessment and Plan: Her metformin was held during hospitalization. Consider Jardiance given DM2 and reduced EF of 40-45% on echocardiogram. (9) Cardiomyopathy: Status: Acute Asessment and Plan: May be a result of afib with RVE. Global hypokinesis noted with EF of 40-45%. Given lasix during hospitalization. Consider Jardiance as mentioned above. Low Na intake stressed. Discharge Plan Disposition Patient Disposition: Home Condition: Good Discharge Details Reason For Visit: Pneumonia, Afib RVR Admit Date/Time: 02/01/23 20:58 Admit Provider: Bon Rivera Attending Provider: Bon Rivera Primary Care Provider: Unknown,Unknown Hospital Course Hospital Course: 72 yr old female under chemotherapy treatment for liver cancer, last treatment 10 days prior to presentation who presented from the cancer center to be evaluated for rapid, irregular HR. 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 On arrival HR in the 130's. Patient admited to fatigue but denied dyspnea or CP. Patient was found to be dehydrated w/ dry oral mucosa. Patient has not fell well since her last chemotherapy 10 days ago. She has had nausea, dry heaves and diarrhea. Workup included routine labs including CMP, CBC, TSH, pro-BNP (but not troponin), coagulation profile. CMP was remarkable for pre-renal azotemia w/ BUN 44 and creatinine 2.0 (baseline 30 and 1.5), low CO2 of 20, AG 10, Mg 1.4, K 5.6, elevated LFT (AST 112, ALT 73, alkaline phosphatase 121, normal TSH 1.35. pro-BNP elevated at? 16,300, Prothombin time 11.1 (INR 1.1), normal aPTT 24. EKG demonstrated rapid afib @ 142 bpm w/ RBBB and LPFB, ST depression across anterior precordial leads. Imaging included CXR that demonstrated cardiomegaly but reportedly no pulmonary infiltrates or effusions. CT chest was done to rule out PE and no PE was seen but demonstrated bilateral pneumonia w/ consolidation of RLL and MAXI , emphysema and RUL nodule 4 mm and MAXI nodule 4 mm, subcarinal adenopathy, mild cardiomegaly and small right pleural effusion and no pericardial effusion, bilateral adrenal gland enlargement. Treatment in the ED included 1 liter of NS bolus, blood cultures were obtained, patient was given Tylenol 1 gm and Rocephin 2 gm and azithromycin 500 mg all IV. She was bolused w/ amiodarone 150 mg for her afib rate control as she was mildly hypotensive even after the fluid bolus, w/ SBP high 80s and low 90s' to low 100's. Patient is admitted to the ICU for control of her rapid afib, to r/o ACS and to treat her CAP. See diagnosis PCP f/u in 1-2 weeks. Home Meds and New Rx's Prescriptions: New Eliquis 5 mg Tablet 5 mg PO BID Qty: 60 0RF metoprolol tartrate 25 mg Tablet 25 mg PO BID Qty: 60 0RF furosemide 20 mg Tablet 20 mg PO DAILY Qty: 30 0RF diltiazem HCl 180 mg capsule,extended release 24hr 180 mg PO DAILY Qty: 30 0RF cefpodoxime 200 mg tablet 200 mg PO BID Qty: 10 0RF Rx Instructions: must administer with a meal/food Continued metformin 500 mg Tablet 500 mg PO BID clopidogrel [Plavix] 75 mg Tablet 75 mg PO DAILY simvastatin 20 mg Tablet 20 mg PO QHS aspirin 81 mg Tablet 81 mg PO DAILY magnesium oxide 400 mg magnesium Tablet 400 mg PO BID Eye Multivit (lutein-zeaxan) 210-92-57-2-5 mg Capsule 1 cap PO BID Discontinued metoprolol tartrate 25 mg tablet 12.5 mg PO BID Discharge Instructions Instructions: A-fib (Atrial Fibrillation) (DC) Activity:: Activity as Tolerated Equipment/Supplies:: No Equipment Needed Diet:: resume usual home diet Discharge Orders Discharge Orders: Discharge Order (Routine); Ordered 02/05/23 Ordered By: Russell Mcintosh Discharge Data Discharge Date/Time-TO BE ENTERED AT DEPARTURE: 02/05/23 11:30 Discharge Comment: Patient's vital signs are within normal limits. DS: Summary Time Spent with Patient providing and/or coordinating discharge services: Greater than 30 minutes Status at Discharge Functional status at discharge: independent ambulation Overall status at discharge: patient is progressing back to baseline Mental Status: mental status grossly normal Speech and Movement: speech and movement normal Mood: congruent mood Affect: normal affect Exam Narrative Exam Narrative: General: Sitting in recliner. Conversant. NAD Neck: No JVD Respiratory: Clear. normal respiratory effort. Cardiac: Irreg Irreg. Not tachy. GI: abdomen soft, non-tender, non-distended Neuro: AAOx3, normal speech, moving all extremities Extremities: No peripheral edema noted Psych: Appropriate mood and affect. Speech normal. Psych Mental Status: mental status grossly normal Speech and Movement: speech and movement normal Mood: congruent mood Affect: normal affect DS: Data Vitals/I&O Vitals and I&O: Vital Signs Temperature 36.1 C L 02/05/23 08:32 Temperature Source Temporal Artery Scan 02/05/23 08:32 Pulse 78 02/05/23 08:32 Pulse Rhythm Regular 02/05/23 05:00 Pulse 130 H 02/04/23 21:07 Respiratory Rate 19 02/05/23 08:32 Respiratory Effort Normal, Non-Labored 02/05/23 05:00 Respiratory Depth Normal 02/05/23 05:00 Respiratory Pattern Normal 02/05/23 05:00 Blood Pressure 122/57 L 02/05/23 08:32 Blood Pressure Mean 72 02/04/23 21:07 Blood Pressure Position Sitting 02/04/23 08:00 Pulse Oximetry 97 02/05/23 08:32 Oxygen Delivery Method Room Air 02/05/23 08:32 Oxygen Flow Rate 0 02/05/23 08:32 Pain Level 0 02/05/23 08:32 Comment RN notified 02/04/23 23:30 Intake & Output 02/04/23 02/04/23 02/05/23 11:59 23:59 11:59 Intake Total 440 / 1020 580 / 1020 400 / 400 Output Total 1175 / 2650 1475 / 2650 1150 / 1150 Balance -735 / -1630 -895 / -1630 -750 / -750 Weight 86.3 kg 84.8 kg Intake: IV 100 / 280 180 / 280 50 / 50 Oral 340 / 740 400 / 740 350 / 350 Output: Urine 1175 / 2650 1475 / 2650 1150 / 1150 Other: Urine Color Yellow Pale Pale Straw Yellow Urine Appearance Clear Clear Clear Urine Odor None Normal Normal Comment Pt is on lasix therapy. Pt is on lasix therapy. Voiding Methods Bedside Commode Bedside Commode Bedside Commode Data Completed and Pending Labs on day of discharge: Labs from last 24 hours 02/05/23 02/03/23 02/02/23 05:40 12:10 01:40 Magnesium 1.4 L M. pneumoniae Source Pending M. pneumoniae (PCR) Pending Ur Strep pneumoniae Ag Negative Preliminary micro results at discharge 02/01/23 19:20 Blood Culture - Preliminary Blood NO GROWTH 72 HOURS 02/01/23 19:00 Blood Culture - Preliminary Blood NO GROWTH 72 HOURS 02/03/23 12:10 Sputum Culture - Preliminary Sputum Normal Heather PFSH All Active Problems (Updated 02/05/23 @ 16:31 by Russell Mcintosh MD) Cardiomyopathy (Acute) Diabetes mellitus (Chronic) Discharge planning issues (Acute) DVT prophylaxis (Acute) Coronary artery disease (Chronic) Hyperkalemia (Acute) Hypomagnesemia (Acute) Acute renal insufficiency (Acute) Dehydration (Acute) Liver cancer (Acute) Atrial fibrillation (Chronic) Pneumonia (Acute) Medical History PAF (paroxysmal atrial fibrillation) Strangulated hernia of abdominal wall Surgical History History of cholecystectomy S/P aortic valve replacement (~03/2022) S/P CABG x 3 (~03/2022) S/P small bowel resection S/P APOLINAR-BSO S/P tubal ligation Social History Smoking/Tobacco Use Status: Never Smoking risk assessment performed?: Yes Alcohol Intake: former Drug use: Never Substance use type: does not use Do you feel safe at home: Yes Do you feel safe in your relationship?: Yes Time Spent with Patient Time Spent with Patient: 45-69 minutes Time was spent: preparing to see the patient(eg.review tests), referring, communicating with other health manager progressive care, indepentently interpreting results, counseling the patient and care coordination
--- NOTE | 2023-02-05 09:53 | PDOC.CMDIS ---
- If Service Date Differs Date of service: 02/05/23 Time of Service: 09:53 LACE Index Scoring Tool - Questions: Length of Stay (in days): 4 - 6 Acuity (Admit via E.D.?): Yes Comorbidities: Any Tumor, Metastatic Solid Tumor E.D. Visits: 1 - Answers: Total Score: 13 Risk of Readmission: High Risk Care Management Discharge Reason for Hospitalization: atrial fibrillation Discharge Plan: March will be dicharged home with no new services. She will follow up with her plan of care as prescribed and transport with family. Patient/Family Education Needs: Review of discharge instructions, activity, limitations, follow up plan, discuss Ask Me Three
[2023-02-05] MEDS: Heparin 500 UNITS/5 ML SYRINGE IV (10:47)
[2023-02-05] MEDS: Normal Saline Flush 10 ML SYR IVP (10:48)
[2023-02-08 09:35] LABS: Mycoplasma Pneumoniae PCR Negative; Specimen source Sputum
== END 2023-02-05 11:30 | disposition home or self-care (01) | DRG 308 ==
LOC: ER 21:00 → ICU 22:04
PROVIDERS: Family Medicine; Admitting Provider Internal Medicine; Emergency Provider Emergency Medicine; Visit Provider Internal Medicine
DX: I48.91 Unspecified atrial fibrillation (principal); J18.9 Pneumonia, unspecified organism; C22.8 Malignant neoplasm of liver, primary, unspecified as to type; J90 Pleural effusion, not elsewhere classified; I24.8 Other forms of acute ischemic heart disease; I42.9 Cardiomyopathy, unspecified; I45.2 Bifascicular block; E86.0 Dehydration; N28.9 Disorder of kidney and ureter, unspecified; E83.42 Hypomagnesemia; I25.10 Atherosclerotic heart disease of native coronary artery without angina pectoris; Z79.899 Other long term (current) drug therapy; J43.9 Emphysema, unspecified; R91.8 Other nonspecific abnormal finding of lung field; R59.0 Localized enlarged lymph nodes; E87.5 Hyperkalemia; Z79.84 Long term (current) use of oral hypoglycemic drugs; Z95.1 Presence of aortocoronary bypass graft; Z79.82 Long term (current) use of aspirin; I08.1 Rheumatic disorders of both mitral and tricuspid valves; Z95.3 Presence of xenogenic heart valve; E11.9 Type 2 diabetes mellitus without complications; E27.8 Other specified disorders of adrenal gland
CPT/HCPCS: 36415; 71275; 80048; 80053; 87040; 87449; 87637; 93005; 93306; 96361; 96365; 96367; 96368; 96375; 99285; 71045; 81003; 81015; 83036; 83735; 83880; 84443; 84484; 85014; 85018; 85025; 85610; 85730; 87070; 87086; 87205; 87581; 87899; 93010; 94668; 99232; 99233; 99239; 99291; J0131; J0282; J0456; J1941; J2405; J3475; J3490; J7614; J7644

== ENCOUNTER 2023-02-18 02:36 | Outpatient (RCR) | payer MEDICARE, SELFPAY ==
[2023-02-01 00:16] VITALS: BP 135/64; PULSE 84; RESP 16; TEMP 36.2
[2023-02-10] MEDS: Normal Saline Flush 10 ML SYR IVP (11:22)
[2023-02-10 11:31] LABS: Abs Immature Grans 0.21 10^3/uL (0.0-0.06); Absolute Basophil Count 0.09 10^3/uL (0.0-0.2); Absolute Eosinophil Count 0.13 10^3/uL (0.0-0.7); Absolute Lymphocyte Count 1.12 10^3/uL (1.2-3.4); Absolute Monocyte Count 1.71 10^3/uL (0.1-0.8); Absolute Neutrophil Count 7.65 10^3/uL (1.2-6.7); Basophils % 0.8; Eosinophils % 1.2; HCT 28.2 % (36.0-46.0); HGB 8.6 g/dL (11.2-15.7); Immature Grans % 1.9; Lymphocytes % 10.3; MCH 29.6 pg (27.0-33.0); MCHC 30.5 % (32.0-36.0); MCV 97 fL (80-95); MPV 10.1 fL (8.0-11.0); Monocytes % 15.7; Neutrophils % 70.1; Nucleated RBC 0.2 % (0.0-0.3); Platelet Count 236 10^3/uL (130-400); RBC 2.91 10^6/uL (3.93-5.22); RDW 21.4 % (11.7-14.6); RDW-SD 72.2 fL; WBC 10.91 10^3/uL (4.4-10.8)
[2023-02-10 11:46] LABS: ALT 36 U/L (14-59); AST 26 U/L (15-37); Albumin 2.8 g/dL (3.4-5.0); Alkaline Phosphatase 129 U/L (46-116); Anion Gap 7.1 mmol/L (3-11); BUN 51 mg/dL (7-18); Bilirubin, Total 0.3 mg/dL (0.2-1.0); CO2 28.9 mmol/L (21.0-32.0); CREATININE 1.8 mg/dL (0.55-1.02); Calcium 10.5 mg/dL (8.5-10.1); Chloride 100 mmol/L (98-107); Estimated GFR 29.57 (mL/min/1.73m2); Glucose 153 mg/dL (74-106); Magnesium 1.5 mg/dL (1.8-2.4); Potassium 5.6 mmol/L (3.5-5.1); Sodium 136 mmol/L (136-145); Total Protein 6.8 g/dL (6.4-8.2)
[2023-02-10 11:54] LABS: Anisocytosis 2+; Diff Comment Diff Reviewed; Polychromasia Present
[2023-02-12 09:56] LABS: CA 19-9 481 U/mL (<35)
[2023-02-18] MEDS: Normal Saline Flush 10 ML SYR IVP (09:47)
[2023-02-18 09:58] LABS: Abs Immature Grans 0.07 10^3/uL (0.0-0.06); Absolute Basophil Count 0.05 10^3/uL (0.0-0.2); Absolute Lymphocyte Count 0.91 10^3/uL (1.2-3.4); Absolute Monocyte Count 0.68 10^3/uL (0.1-0.8); Absolute Neutrophil Count 10.38 10^3/uL (1.2-6.7); Basophils % 0.4; Eosinophils % 1.1; HCT 29.4 % (36.0-46.0); HGB 8.8 g/dL (11.2-15.7); Immature Grans % 0.6; Lymphocytes % 7.4; MCH 29.8 pg (27.0-33.0); MCHC 29.9 % (32.0-36.0); MCV 100 fL (80-95); MPV 9.1 fL (8.0-11.0); Monocytes % 5.6; Neutrophils % 84.9; Platelet Count 179 10^3/uL (130-400); RBC 2.95 10^6/uL (3.93-5.22); RDW 21.6 % (11.7-14.6); RDW-SD 78.7 fL; WBC 12.23 10^3/uL (4.4-10.8)
[2023-02-18 10:02] LABS: Absolute Eosinophil Count 0.13 10^3/uL (0.0-0.7)
[2023-02-18 10:14] LABS: ALT 26 U/L (14-59); AST 27 U/L (15-37); Albumin 3.1 g/dL (3.4-5.0); Alkaline Phosphatase 104 U/L (46-116); Anion Gap 8.7 mmol/L (3-11); BUN 55 mg/dL (7-18); Bilirubin, Total 0.4 mg/dL (0.2-1.0); CO2 29.3 mmol/L (21.0-32.0); Calcium 10.2 mg/dL (8.5-10.1); Chloride 99 mmol/L (98-107); Estimated GFR 26.05 (mL/min/1.73m2); Glucose 189 mg/dL (74-106); Magnesium 1.8 mg/dL (1.8-2.4); Potassium 4.3 mmol/L (3.5-5.1); Sodium 137 mmol/L (136-145); Total Protein 7.2 g/dL (6.4-8.2)
== END 2023-03-03 23:59 | disposition home or self-care (01) ==
LOC: INF 02:36
PROVIDERS: Visit Provider Internal Medicine Hematology & Oncology
DX: C22.1 Intrahepatic bile duct carcinoma (principal); Z45.2 Encounter for adjustment and management of vascular access device
CPT/HCPCS: 36591; 80053; 83735; 85025; 86301

== ENCOUNTER 2023-02-18 11:29 | Emergency (ER) | payer MEDICARE, SELFPAY ==
[2023-02-18] VITALS (28 sets, daily range): BP systolic 85–147; BP diastolic 49–88; PULSE 67–155; RESP 15–29; TEMP 36.8; O2SAT 92–98
--- NOTE | 2023-02-18 11:30 | RT.EKG_ITS ---
APPROVED REPORT Exam: Resting ECG Reason for Exam: afib Patient Location: E HR:134 bpm ECG Measurements Heart Rate 134 AXIS IA [id number] P [id number] QRSd 145 QRS 158 QT 338 T -21 QTc 506 Conclusion Atrial flutter with predominant 2:1 AV block...A-rate 294, multiple Ps RBBB and LPFB...QRSd >120mS, axis(90,210) ST depression, consider ischemia, diffuse lds...ST <-0.10mV, ant/lat/inf
--- NOTE | 2023-02-18 11:44 | ED.GENADUL_ITS ---
Discharge Plan Disposition Patient Disposition: Home Condition: Stable Discharge Details Clinical Impression: Atrial fibrillation with RVR Primary Care Provider: None,None ED Provider: Dwayne Novak Home Meds and New Rx's Prescriptions: Continued metoprolol succinate 100 mg tablet extended release 24 hr 100 mg PO DAILY metformin 500 mg Tablet 500 mg PO BID clopidogrel [Plavix] 75 mg Tablet 75 mg PO DAILY simvastatin 20 mg Tablet 20 mg PO QHS aspirin 81 mg Tablet 81 mg PO DAILY magnesium oxide 400 mg magnesium Tablet 400 mg PO BID Eye Multivit (lutein-zeaxan) 544-66-08-2-5 mg Capsule 1 cap PO BID Eliquis 5 mg Tablet 5 mg PO BID Qty: 60 0RF metoprolol tartrate 25 mg Tablet 25 mg PO BID Qty: 60 0RF furosemide 20 mg Tablet 20 mg PO DAILY Qty: 30 0RF diltiazem HCl 180 mg capsule,extended release 24hr 180 mg PO DAILY Qty: 30 0RF cefpodoxime 200 mg tablet 200 mg PO BID Qty: 10 0RF Rx Instructions: must administer with a meal/food Discharge Instructions Instructions: A-fib (Atrial Fibrillation) (ED) Additional Instructions: your heart rate was controlled after a single dose of IV medication continue the metoprolol as prescribed by Dr. Rubalcava and follow up with her as scheduled if you feel more ill, have severe chest pain or difficulty breathing return to the emergency department Medical Decision Making 73 yo female with hx of afib on metoprolol and eliquis, liver cancer undergoing chemo, comes in after being found to have a high heart rate. She was at the cancer center being seen for an infusion for her chemotherapy and was found to have a high heart rate in the 150's so was referred here. Pt denies any symptoms states she feels well and denies fevers, chills, cough, chest pain, dyspnea, lightheadedness/dizziness. She arrives stable speaking clearly caox4 and is in afib/flutters rate ranging from 130-150, stable bp, no fever. Given lack of symptoms doubt etiologies such as acs, sepsis, will proceed with iv dilt, obtain cbc, cmp, troponin and reassess after iv diltiazem. labs unremarkable, troponin less then 60 and given she has no chest pain do not feel delta troponin indicated. She is stable, HR has been in the 70's for 2 hours now so do not feel further intervention necessary and she is stable for d/c. She had her metorpolol increased to 100mg ER and her first dose of this as today. 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 Lab Data Lab results reviewed: Yes I reviewed the patient's lab results. ECG Data Attestation: I personally reviewed and interpreted this ECG (s) as follows: Prior ECG tracings: available for review Interpretation: afib, rate of 134, no stemi HPI General Mode of arrival: ambulatory . Date/Time Provider Initiated Documentation: 02/18/23 11:30 . Limitations to Documentation: no limitations . Information obtained by: patient . History of Present Illness 73 year old F presents to the emergency department with the chief complaint of high heart rate, described as moderate, Patient started experiencing this unknown and it has been constant. No relieving factors improve symptom(s), No exacerbating factors reported . Patient notes no other symptoms.. Patient did receive the following treatments prior to arrival, none Related Data Home Medications Medication Instructions Recorded Confirmed aspirin 81 mg tablet 81 mg PO DAILY 02/01/23 02/18/23 clopidogrel 75 mg tablet (Plavix) 75 mg PO DAILY 02/01/23 02/01/23 magnesium oxide 400 mg PO BID 02/01/23 02/18/23 metformin 500 mg tablet 500 mg PO BID 02/01/23 02/18/23 simvastatin 20 mg tablet 20 mg PO QHS 02/01/23 02/18/23 vit C 250 mg-E 90 mg-zinc 40 1 cap PO BID 02/01/23 02/18/23 mg-copper 2 mg-lutein 5 mg-zeaxan capsule (Eye Multivitamin (lutein-zeaxan)) apixaban 5 mg tablet (Eliquis) 5 mg PO BID #60 tabs 02/04/23 02/18/23 cefpodoxime 200 mg tablet 200 mg PO BID #10 tabs 02/05/23 diltiazem HCl 180 mg 180 mg PO DAILY #30 caps 02/05/23 02/18/23 capsule,extended release 24 hr furosemide 20 mg tablet 20 mg PO DAILY #30 tabs 05/05/23 05/18/23 metoprolol tartrate 25 mg tablet 25 mg PO BID #60 tabs 02/05/23 metoprolol succinate 100 mg 100 mg PO DAILY 02/18/23 02/18/23 tablet,extended release 24 hr Previous Rx's Medication Instructions Recorded apixaban 5 mg tablet (Eliquis) 5 mg PO BID #60 tabs 02/04/23 cefpodoxime 200 mg tablet 200 mg PO BID #10 tabs 02/05/23 diltiazem HCl 180 mg 180 mg PO DAILY #30 caps 02/05/23 capsule,extended release 24 hr furosemide 20 mg tablet 20 mg PO DAILY #30 tabs 02/05/23 metoprolol tartrate 25 mg tablet 25 mg PO BID #60 tabs 02/05/23 Allergies Allergy/AdvReac Type Severity Reaction Status Date / Time No Known Allergies Allergy Unverified 02/18/23 11:38 General Stated Complaint: Arrhythmia FRANCHESCA: 2 Review of Systems All systems reviewed & are unremarkable except as noted in HPI and below Constitutional Constitutional: Denies chills, Denies fever(s) and Denies weakness Cardiovascular Cardiovascular: Denies chest pain and Denies dyspnea Respiratory Respiratory: Denies cough and Denies dyspnea Gastrointestinal Gastrointestinal: Denies abdominal pain, Denies nausea and Denies vomiting Musculoskeletal Musculoskeletal: Denies joint swelling Neurologic Neurologic: Denies weakness PFSH All Active Problems (Updated 02/18/23 @ 13:19 by Dwayne Novak MD) Atrial fibrillation with RVR (Acute) Cardiomyopathy (Acute) Diabetes mellitus (Chronic) Coronary artery disease (Chronic) Liver cancer (Acute) Atrial fibrillation (Chronic) Pneumonia (Acute) Medical History PAF (paroxysmal atrial fibrillation) Strangulated hernia of abdominal wall Surgical History History of cholecystectomy S/P aortic valve replacement (~03/2022) S/P CABG x 3 (~03/2022) S/P small bowel resection S/P APOLINAR-BSO S/P tubal ligation Social History Smoking/Tobacco Use Status: Never Smoking risk assessment performed?: Yes Alcohol Intake: former Drug use: Never Substance use type: does not use Do you feel safe at home: Yes Do you feel safe in your relationship?: Yes Exam Const General: no acute distress Orientation: alert HENMT Head: normal to inspection Ears: external ears normal General nose exam: external nose normal Mouth: moist mucous membranes Eyes General: appearance normal, both eyes and all related structures Neck Neck: normal visual inspection Resp Effort & Inspection: normal respiratory effort and able to speak in complete sentences Auscultation: clear to auscultation bilaterally Cardio Jugular venous pressure: no JVD Rate: tachycardic GI Palpation: soft and nontender Skin General skin exam: no rashes or lesions noted Neuro General: patient alert and patient oriented x3 Extrem General: normal to inspection Psych Mental Status: mental status grossly normal Course Vital Signs Vital signs: Vital Signs Temperature 36.8 C 02/18/23 11:31 Pulse 155 H 02/18/23 11:31 Respiratory Rate 22 02/18/23 11:31 Blood Pressure 147/88 H 02/18/23 11:31 Pulse Oximetry 96 02/18/23 11:31 Temperature 36.8 C 02/18/23 11:31 Temperature Source Oral 02/18/23 11:31 Pulse 155 H 02/18/23 11:31 Respiratory Rate 22 02/18/23 11:31 Respiratory Effort Short of Breath 02/18/23 11:35 Blood Pressure 147/88 H 02/18/23 11:31 Blood Pressure Position Supine 02/18/23 11:31 Pulse Oximetry 96 02/18/23 11:31 Oxygen Delivery Method Room Air 02/18/23 11:31 Oxygen Flow Rate 0 02/18/23 11:31 Pain Level 0 02/18/23 11:31 Critical Care Time Critical Care Time Critical Care Time: Yes Total Critical Care Time: 45 (minutes) Attestation: time spent administering IV prudence katlyn in patient with afib with rvr, frequent reassessments, lab review in patient with potential to deteriorate at any time.
[2023-02-18] MEDS: Normal Saline Flush 10 ML SYR IVP (11:45)
[2023-02-18 11:52] LABS: Abs Immature Grans 0.08 10^3/uL (0.0-0.06); Absolute Basophil Count 0.08 10^3/uL (0.0-0.2); Absolute Eosinophil Count 0.13 10^3/uL (0.0-0.7); Absolute Lymphocyte Count 1.25 10^3/uL (1.2-3.4); Absolute Monocyte Count 1.25 10^3/uL (0.1-0.8); Basophils % 0.6; HGB 8.7 g/dL (11.2-15.7); Immature Grans % 0.6; Lymphocytes % 9.3; MCH 29.7 pg (27.0-33.0); MCV 99 fL (80-95); MPV 9.1 fL (8.0-11.0); Monocytes % 9.3; Neutrophils % 79.2; Platelet Count 182 10^3/uL (130-400); RBC 2.93 10^6/uL (3.93-5.22); RDW 21.7 % (11.7-14.6); RDW-SD 78.2 fL; WBC 13.48 10^3/uL (4.4-10.8)
[2023-02-18] MEDS: Normal Saline 1,000 ML 1000 ML IV (11:55)
[2023-02-18 11:59] LABS: Absolute Neutrophil Count 10.68 10^3/uL (1.2-6.7)
[2023-02-18] MEDS: dilTIAZem 25 MG/5 ML VIAL 20 MG IVP (12:01)
[2023-02-18 12:09] LABS: INR 1.1 (0.9-1.1); PTT Activated 23.9 sec (21.5-31.9); Prothrombin Time 11.6 sec (9.3-11.0)
[2023-02-18 12:21] LABS: Diff Comment RBC Morph Reviewed
[2023-02-18 12:22] LABS: Anisocytosis 2+
[2023-02-18 13:12] LABS: ALT 28 U/L (14-59); AST 27 U/L (15-37); Albumin 3.2 g/dL (3.4-5.0); Alkaline Phosphatase 105 U/L (46-116); Anion Gap 10.4 mmol/L (3-11); BUN 55 mg/dL (7-18); Bilirubin, Total 0.4 mg/dL (0.2-1.0); CO2 26.6 mmol/L (21.0-32.0); Calcium 10.5 mg/dL (8.5-10.1); Chloride 100 mmol/L (98-107); Estimated GFR 26.05 (mL/min/1.73m2); Glucose 105 mg/dL (74-106); Potassium 4.4 mmol/L (3.5-5.1); Sodium 137 mmol/L (136-145); Total Protein 7.3 g/dL (6.4-8.2); Troponin I 57 ng/L (<or=60)
[2023-02-18] MEDS: Heparin 500 UNITS/5 ML SYRINGE (13:57)
== END 2023-02-18 14:05 | disposition home or self-care (01) ==
PROVIDERS: Emergency Provider Emergency Medicine
DX: I48.91 Unspecified atrial fibrillation (principal); Z79.01 Long term (current) use of anticoagulants; C22.8 Malignant neoplasm of liver, primary, unspecified as to type; E11.9 Type 2 diabetes mellitus without complications; Z79.4 Long term (current) use of insulin
CPT/HCPCS: 36415; 36591; 80053; 93005; 96374; 99291; 83735; 84484; 85025; 85610; 85730; 93010

== ENCOUNTER 2023-03-28 00:01 | Outpatient (RCR) | payer MEDICARE, SELFPAY ==
[2023-03-04 00:16] VITALS: BP 135/64; PULSE 84; RESP 16; TEMP 36.2
[2023-03-12] MEDS: Normal Saline Flush 10 ML SYR IVP (08:37)
[2023-03-12 08:51] LABS: Abs Immature Grans 0.05 10^3/uL (0.0-0.06); Absolute Basophil Count 0.05 10^3/uL (0.0-0.2); Absolute Eosinophil Count 0.24 10^3/uL (0.0-0.7); Absolute Monocyte Count 1.01 10^3/uL (0.1-0.8); Basophils % 0.5; Eosinophils % 2.3; HCT 33.3 % (36.0-46.0); HGB 10.1 g/dL (11.2-15.7); Immature Grans % 0.5; Lymphocytes % 9.4; MCH 29.3 pg (27.0-33.0); MCHC 30.3 % (32.0-36.0); MCV 97 fL (80-95); MPV 9.5 fL (8.0-11.0); Monocytes % 9.5; Neutrophils % 77.8; Platelet Count 175 10^3/uL (130-400); RBC 3.45 10^6/uL (3.93-5.22); RDW 17.4 % (11.7-14.6); WBC 10.65 10^3/uL (4.4-10.8)
[2023-03-12 09:06] LABS: ALT 21 U/L (14-59); AST 21 U/L (15-37); Albumin 3.3 g/dL (3.4-5.0); Alkaline Phosphatase 100 U/L (46-116); Anion Gap 7.4 mmol/L (3-11); BUN 35 mg/dL (7-18); Bilirubin, Total 0.4 mg/dL (0.2-1.0); CO2 29.6 mmol/L (21.0-32.0); CREATININE 1.5 mg/dL (0.55-1.02); Calcium 10.5 mg/dL (8.5-10.1); Chloride 99 mmol/L (98-107); Glucose 127 mg/dL (74-106); Potassium 4.3 mmol/L (3.5-5.1); Sodium 136 mmol/L (136-145); Total Protein 7.4 g/dL (6.4-8.2)
[2023-03-12 11:43] LABS: Magnesium 1.7 mg/dL (1.8-2.4)
[2023-03-14] MEDS: Normal Saline Flush 10 ML SYR IVP (11:22)
[2023-03-14] MEDS: Heparin 500 UNITS/5 ML SYRINGE IV (11:22)
[2023-03-15 11:57] LABS: CA 19-9 488 U/mL (<35)
[2023-03-26] MEDS: Normal Saline Flush 10 ML SYR IVP (09:44)
[2023-03-26 09:49] LABS: Abs Immature Grans 0.03 10^3/uL (0.0-0.06); Absolute Basophil Count 0.04 10^3/uL (0.0-0.2); Absolute Eosinophil Count 0.16 10^3/uL (0.0-0.7); Absolute Lymphocyte Count 0.91 10^3/uL (1.2-3.4); Absolute Monocyte Count 0.92 10^3/uL (0.1-0.8); Absolute Neutrophil Count 5.67 10^3/uL (1.2-6.7); Basophils % 0.5; Eosinophils % 2.1; HCT 29.9 % (36.0-46.0); HGB 9.5 g/dL (11.2-15.7); Immature Grans % 0.4; Lymphocytes % 11.8; MCH 30.2 pg (27.0-33.0); MCHC 31.8 % (32.0-36.0); MCV 95 fL (80-95); MPV 8.6 fL (8.0-11.0); Monocytes % 11.9; Neutrophils % 73.3; Platelet Count 126 10^3/uL (130-400); RBC 3.15 10^6/uL (3.93-5.22); RDW 17.7 % (11.7-14.6); RDW-SD 58.7 fL; WBC 7.73 10^3/uL (4.4-10.8)
[2023-03-26 10:04] LABS: ALT 21 U/L (14-59); AST 19 U/L (15-37); Albumin 3.2 g/dL (3.4-5.0); Alkaline Phosphatase 86 U/L (46-116); Anion Gap 5.6 mmol/L (3-11); BUN 41 mg/dL (7-18); Bilirubin, Total 0.3 mg/dL (0.2-1.0); CO2 28.4 mmol/L (21.0-32.0); CREATININE 1.5 mg/dL (0.55-1.02); Chloride 102 mmol/L (98-107); Glucose 139 mg/dL (74-106); Potassium 4.4 mmol/L (3.5-5.1); Sodium 136 mmol/L (136-145); Total Protein 6.9 g/dL (6.4-8.2)
[2023-03-26 11:25] LABS: Magnesium 2.2 mg/dL (1.8-2.4)
[2023-03-28] MEDS: Normal Saline Flush 10 ML SYR IVP (11:58)
[2023-03-28] MEDS: Heparin 500 UNITS/5 ML SYRINGE IV (11:58)
[2023-03-28 12:09] VITALS: BP 96/47; PULSE 81; RESP 16; TEMP 36.6; O2SAT 96
[2023-03-29 15:41] LABS: CA 19-9 527 U/mL (<35)
== END 2023-04-02 23:59 | disposition home or self-care (01) ==
LOC: INF 00:01
PROVIDERS: Visit Provider Internal Medicine Hematology & Oncology
DX: C22.1 Intrahepatic bile duct carcinoma (principal); Z45.2 Encounter for adjustment and management of vascular access device
CPT/HCPCS: 36591; 80053; 96523; 83735; 85025; 86301

== ENCOUNTER 2023-05-02 00:01 | Outpatient (RCR) | payer MEDICARE, SELFPAY ==
[2023-04-03 00:07] VITALS: BP 96/47; PULSE 81; RESP 16; TEMP 36.6
[2023-04-09] MEDS: Normal Saline Flush 10 ML SYR IVP (10:13)
[2023-04-09 10:22] LABS: Abs Immature Grans 0.04 10^3/uL (0.0-0.06); Absolute Basophil Count 0.03 10^3/uL (0.0-0.2); Absolute Eosinophil Count 0.17 10^3/uL (0.0-0.7); Absolute Lymphocyte Count 0.97 10^3/uL (1.2-3.4); Absolute Monocyte Count 1.14 10^3/uL (0.1-0.8); Absolute Neutrophil Count 5.66 10^3/uL (1.2-6.7); Basophils % 0.4; Eosinophils % 2.1; HCT 28.3 % (36.0-46.0); HGB 8.9 g/dL (11.2-15.7); Immature Grans % 0.5; Lymphocytes % 12.1; MCH 30.2 pg (27.0-33.0); MCHC 31.4 % (32.0-36.0); MCV 96 fL (80-95); Monocytes % 14.2; Neutrophils % 70.7; Platelet Count 152 10^3/uL (130-400); RBC 2.95 10^6/uL (3.93-5.22); RDW 19.7 % (11.7-14.6); RDW-SD 66.6 fL; WBC 8.01 10^3/uL (4.4-10.8)
[2023-04-09 10:42] LABS: ALT 19 U/L (14-59); AST 25 U/L (15-37); Alkaline Phosphatase 94 U/L (46-116); Anion Gap 8.8 mmol/L (3-11); BUN 33 mg/dL (7-18); Bilirubin, Total 0.3 mg/dL (0.2-1.0); CO2 28.2 mmol/L (21.0-32.0); CREATININE 1.5 mg/dL (0.55-1.02); Calcium 8.9 mg/dL (8.5-10.1); Chloride 98 mmol/L (98-107); Glucose 110 mg/dL (74-106); Magnesium 2.1 mg/dL (1.8-2.4); Potassium 4.6 mmol/L (3.5-5.1); Sodium 135 mmol/L (136-145); Total Protein 6.9 g/dL (6.4-8.2)
[2023-04-11] MEDS: Normal Saline Flush 10 ML SYR IVP (13:03)
[2023-04-11] MEDS: Heparin 500 UNITS/5 ML SYRINGE IV (13:04)
[2023-04-12 12:45] LABS: CA 19-9 599 U/mL (<35)
[2023-04-30] MEDS: Normal Saline Flush 10 ML SYR IVP (10:15)
[2023-04-30 10:33] LABS: Abs Immature Grans 0.04 10^3/uL (0.0-0.06); Absolute Basophil Count 0.06 10^3/uL (0.0-0.2); Absolute Eosinophil Count 0.33 10^3/uL (0.0-0.7); Absolute Lymphocyte Count 0.96 10^3/uL (1.2-3.4); Absolute Neutrophil Count 4.41 10^3/uL (1.2-6.7); Basophils % 0.9; Eosinophils % 4.7; HCT 28.7 % (36.0-46.0); HGB 9.1 g/dL (11.2-15.7); Immature Grans % 0.6; Lymphocytes % 13.7; MCH 31.5 pg (27.0-33.0); MCHC 31.7 % (32.0-36.0); MCV 99 fL (80-95); MPV 9.2 fL (8.0-11.0); Monocytes % 17.1; Platelet Count 182 10^3/uL (130-400); RBC 2.89 10^6/uL (3.93-5.22); RDW 20.9 % (11.7-14.6)
[2023-04-30 10:45] LABS: ALT 18 U/L (14-59); AST 22 U/L (15-37); Albumin 3.1 g/dL (3.4-5.0); Alkaline Phosphatase 85 U/L (46-116); Anion Gap 9.6 mmol/L (3-11); BUN 37 mg/dL (7-18); Bilirubin, Total 0.3 mg/dL (0.2-1.0); CO2 26.4 mmol/L (21.0-32.0); CREATININE 1.6 mg/dL (0.55-1.02); Calcium 9.7 mg/dL (8.5-10.1); Chloride 99 mmol/L (98-107); Estimated GFR 34.05 (mL/min/1.73m2); Glucose 95 mg/dL (74-106); Potassium 4.5 mmol/L (3.5-5.1); Sodium 135 mmol/L (136-145); Total Protein 6.9 g/dL (6.4-8.2)
[2023-05-02 11:30] VITALS: BP 105/70; PULSE 78; RESP 16; TEMP 36.1; O2SAT 97
[2023-05-02] MEDS: Heparin 500 UNITS/5 ML SYRINGE IV (11:41)
[2023-05-02] MEDS: Normal Saline Flush 10 ML SYR IVP (11:41)
[2023-05-03 17:29] LABS: CA 19-9 558 U/mL (<35)
== END 2023-05-03 23:59 | disposition home or self-care (01) ==
LOC: INF 00:01
PROVIDERS: Visit Provider Internal Medicine Hematology & Oncology
DX: E83.42 Hypomagnesemia (principal); C22.1 Intrahepatic bile duct carcinoma; Z45.2 Encounter for adjustment and management of vascular access device
CPT/HCPCS: 36591; 80053; 96523; 83735; 85025; 86301

== ENCOUNTER 2023-05-30 00:49 | Outpatient (RCR) | payer MEDICARE, SELFPAY ==
[2023-05-04 00:04] VITALS: BP 105/70; PULSE 78; RESP 16; TEMP 36.1
[2023-05-13] MEDS: Normal Saline Flush 10 ML SYR IVP (10:39)
[2023-05-13 10:53] LABS: Abs Immature Grans 0.05 10^3/uL (0.0-0.06); Absolute Basophil Count 0.05 10^3/uL (0.0-0.2); Absolute Lymphocyte Count 1.11 10^3/uL (1.2-3.4); Absolute Monocyte Count 1.21 10^3/uL (0.1-0.8); Basophils % 0.5; Eosinophils % 1.9; HCT 29.3 % (36.0-46.0); HGB 9.3 g/dL (11.2-15.7); Immature Grans % 0.5; Lymphocytes % 10.3; MCHC 31.7 % (32.0-36.0); MCV 101 fL (80-95); MPV 9.7 fL (8.0-11.0); Monocytes % 11.2; Neutrophils % 75.6; Platelet Count 137 10^3/uL (130-400); RBC 2.91 10^6/uL (3.93-5.22); RDW 20.7 % (11.7-14.6); RDW-SD 75.8 fL; WBC 10.81 10^3/uL (4.4-10.8)
[2023-05-13 11:14] LABS: Absolute Eosinophil Count 0.21 10^3/uL (0.0-0.7); Absolute Neutrophil Count 8.17 10^3/uL (1.2-6.7)
[2023-05-13 11:26] LABS: Anisocytosis 2+; Diff Comment RBC Morph Reviewed
[2023-05-13 11:28] LABS: ALT 18 U/L (14-59); AST 21 U/L (15-37); Albumin 3.4 g/dL (3.4-5.0); Alkaline Phosphatase 82 U/L (46-116); Anion Gap 9.8 mmol/L (3-11); BUN 35 mg/dL (7-18); Bilirubin, Total 0.4 mg/dL (0.2-1.0); CO2 28.2 mmol/L (21.0-32.0); CREATININE 1.9 mg/dL (0.55-1.02); Calcium 9.4 mg/dL (8.5-10.1); Chloride 99 mmol/L (98-107); Estimated GFR 27.71 (mL/min/1.73m2); Glucose 89 mg/dL (74-106); Magnesium 2.3 mg/dL (1.8-2.4); Potassium 4.6 mmol/L (3.5-5.1); Sodium 137 mmol/L (136-145)
[2023-05-14 09:57] LABS: CA 19-9 537 U/mL (<35)
[2023-05-15 13:37] VITALS: BP 137/86; PULSE 92; RESP 16; TEMP 37.4; O2SAT 96
[2023-05-15] MEDS: Normal Saline Flush 10 ML SYR IVP (13:40)
[2023-05-15] MEDS: Heparin 500 UNITS/5 ML SYRINGE IV (13:41)
[2023-05-28] MEDS: Normal Saline Flush 10 ML SYR IVP (10:10)
[2023-05-28 10:19] LABS: Abs Immature Grans 0.03 10^3/uL (0.0-0.06); Absolute Basophil Count 0.04 10^3/uL (0.0-0.2); Absolute Eosinophil Count 0.27 10^3/uL (0.0-0.7); Absolute Monocyte Count 1.43 10^3/uL (0.1-0.8); Basophils % 0.5; Eosinophils % 3.3; HCT 29.4 % (36.0-46.0); HGB 9.4 g/dL (11.2-15.7); Immature Grans % 0.4; Lymphocytes % 13.5; MCH 32.8 pg (27.0-33.0); MCV 102 fL (80-95); MPV 9.2 fL (8.0-11.0); Monocytes % 17.5; Neutrophils % 64.8; Platelet Count 141 10^3/uL (130-400); RBC 2.87 10^6/uL (3.93-5.22); RDW 20.7 % (11.7-14.6); RDW-SD 77.6 fL; WBC 8.17 10^3/uL (4.4-10.8)
[2023-05-28 10:36] LABS: ALT 16 U/L (14-59); AST 20 U/L (15-37); Albumin 3.3 g/dL (3.4-5.0); Alkaline Phosphatase 85 U/L (46-116); Anion Gap 9.6 mmol/L (3-11); BUN 36 mg/dL (7-18); Bilirubin, Total 0.3 mg/dL (0.2-1.0); CO2 27.4 mmol/L (21.0-32.0); CREATININE 1.9 mg/dL (0.55-1.02); Calcium 9.2 mg/dL (8.5-10.1); Chloride 99 mmol/L (98-107); Estimated GFR 27.71 (mL/min/1.73m2); Glucose 98 mg/dL (74-106); Magnesium 2.1 mg/dL (1.8-2.4); Sodium 136 mmol/L (136-145); Total Protein 6.8 g/dL (6.4-8.2)
[2023-05-28 10:38] LABS: Anisocytosis 1+
[2023-05-28 10:39] LABS: Hypochromasia 1+
[2023-05-28 10:40] LABS: Macrocytosis 1+; Polychromasia Present
[2023-05-30 13:14] VITALS: BP 151/50; PULSE 89; RESP 16; TEMP 36.9; O2SAT 92
[2023-05-31 12:05] LABS: CA 19-9 490 U/mL (<35)
== END 2023-06-03 23:59 | disposition home or self-care (01) ==
LOC: INF 00:49
PROVIDERS: Visit Provider Internal Medicine Hematology & Oncology
DX: E83.42 Hypomagnesemia (principal); C22.1 Intrahepatic bile duct carcinoma; Z45.2 Encounter for adjustment and management of vascular access device
CPT/HCPCS: 36591; 80053; 96523; 83735; 85025; 86301

== ENCOUNTER 2023-06-27 01:46 | Outpatient (RCR) | payer MEDICARE, SELFPAY ==
[2023-06-04 00:03] VITALS: BP 151/50; PULSE 89; RESP 16; TEMP 36.9
[2023-06-11 10:20] LABS: Abs Immature Grans 0.03 10^3/uL (0.0-0.06); Absolute Basophil Count 0.06 10^3/uL (0.0-0.2); Absolute Eosinophil Count 0.19 10^3/uL (0.0-0.7); Absolute Lymphocyte Count 0.92 10^3/uL (1.2-3.4); Absolute Neutrophil Count 6.26 10^3/uL (1.2-6.7); Basophils % 0.7; Eosinophils % 2.2; HCT 28.7 % (36.0-46.0); HGB 9.2 g/dL (11.2-15.7); Immature Grans % 0.3; Lymphocytes % 10.5; MCH 32.7 pg (27.0-33.0); MCHC 32.1 % (32.0-36.0); MCV 102 fL (80-95); MPV 9.2 fL (8.0-11.0); Monocytes % 14.8; Neutrophils % 71.5; Platelet Count 133 10^3/uL (130-400); RBC 2.81 10^6/uL (3.93-5.22); RDW 19.7 % (11.7-14.6); WBC 8.76 10^3/uL (4.4-10.8)
[2023-06-11] MEDS: Normal Saline Flush 10 ML SYR IVP (10:23)
[2023-06-11 10:36] LABS: ALT 17 U/L (14-59); AST 20 U/L (15-37); Albumin 3.2 g/dL (3.4-5.0); Alkaline Phosphatase 82 U/L (46-116); Anion Gap 7.6 mmol/L (3-11); BUN 36 mg/dL (7-18); Bilirubin, Total 0.3 mg/dL (0.2-1.0); CO2 28.4 mmol/L (21.0-32.0); CREATININE 1.7 mg/dL (0.55-1.02); Calcium 9.5 mg/dL (8.5-10.1); Chloride 100 mmol/L (98-107); Estimated GFR 31.66 (mL/min/1.73m2); Glucose 141 mg/dL (74-106); Magnesium 1.9 mg/dL (1.8-2.4); Potassium 4.5 mmol/L (3.5-5.1); Sodium 136 mmol/L (136-145)
[2023-06-13] MEDS: Normal Saline Flush 10 ML SYR IVP (12:15)
[2023-06-13] MEDS: Heparin 500 UNITS/5 ML SYRINGE IV (12:15)
[2023-06-13 12:19] VITALS: BP 123/40; PULSE 74; RESP 18; TEMP 36.1; O2SAT 100
[2023-06-14 10:15] LABS: CA 19-9 561 U/mL (<35)
[2023-06-27 12:48] VITALS: BP 104/45; PULSE 82; RESP 18; TEMP 35.9; O2SAT 99
== END 2023-07-03 23:59 | disposition home or self-care (01) ==
LOC: INF 01:46
PROVIDERS: Visit Provider Internal Medicine Hematology & Oncology
DX: C22.1 Intrahepatic bile duct carcinoma (principal); Z45.1 Encounter for adjustment and management of infusion pump
CPT/HCPCS: 36591; 80053; 96365; 96523; 83735; 85025; 86301

== ENCOUNTER 2023-07-28 03:14 | Outpatient (RCR) | payer MEDICARE, SELFPAY ==
[2023-07-04 00:02] VITALS: BP 104/45; PULSE 82; RESP 18; TEMP 35.9
[2023-07-09 09:36] LABS: Abs Immature Grans 0.02 10^3/uL (0.0-0.06); Absolute Basophil Count 0.03 10^3/uL (0.0-0.2); Absolute Eosinophil Count 0.17 10^3/uL (0.0-0.7); Absolute Lymphocyte Count 0.86 10^3/uL (1.2-3.4); Absolute Monocyte Count 0.88 10^3/uL (0.1-0.8); Absolute Neutrophil Count 4.73 10^3/uL (1.2-6.7); Basophils % 0.4; Eosinophils % 2.5; HCT 28.8 % (36.0-46.0); HGB 9.3 g/dL (11.2-15.7); Immature Grans % 0.3; Lymphocytes % 12.9; MCH 33.7 pg (27.0-33.0); MCHC 32.3 % (32.0-36.0); MCV 104 fL (80-95); MPV 8.9 fL (8.0-11.0); Monocytes % 13.2; Neutrophils % 70.7; Platelet Count 115 10^3/uL (130-400); RBC 2.76 10^6/uL (3.93-5.22); RDW 18.3 % (11.7-14.6); RDW-SD 67.9 fL; WBC 6.69 10^3/uL (4.4-10.8)
[2023-07-09] MEDS: Normal Saline Flush 10 ML SYR IVP (09:37)
[2023-07-09 10:08] LABS: ALT 18 U/L (14-59); AST 22 U/L (15-37); Albumin 3.2 g/dL (3.4-5.0); Alkaline Phosphatase 75 U/L (46-116); Anion Gap 8.2 mmol/L (3-11); BUN 22 mg/dL (7-18); Bilirubin, Total 0.3 mg/dL (0.2-1.0); CO2 26.8 mmol/L (21.0-32.0); CREATININE 1.5 mg/dL (0.55-1.02); Calcium 9.5 mg/dL (8.5-10.1); Chloride 99 mmol/L (98-107); Glucose 117 mg/dL (74-106); Magnesium 1.8 mg/dL (1.8-2.4); Potassium 4.7 mmol/L (3.5-5.1); Sodium 134 mmol/L (136-145); Total Protein 6.8 g/dL (6.4-8.2)
[2023-07-11] MEDS: Normal Saline Flush 10 ML SYR IVP (09:20)
[2023-07-11] MEDS: Heparin 500 UNITS/5 ML SYRINGE IV (09:30)
[2023-07-11 12:39] VITALS: BP 139/42; PULSE 88; RESP 16; TEMP 36; O2SAT 95
[2023-07-12 10:51] LABS: CA 19-9 518 U/mL (<35)
[2023-07-28 10:07] LABS: Abs Immature Grans 0.03 10^3/uL (0.0-0.06); Absolute Basophil Count 0.04 10^3/uL (0.0-0.2); Absolute Eosinophil Count 0.17 10^3/uL (0.0-0.7); Absolute Lymphocyte Count 1.02 10^3/uL (1.2-3.4); Absolute Monocyte Count 1.83 10^3/uL (0.1-0.8); Absolute Neutrophil Count 3.98 10^3/uL (1.2-6.7); Basophils % 0.6; Eosinophils % 2.4; HCT 29.8 % (36.0-46.0); HGB 9.5 g/dL (11.2-15.7); Immature Grans % 0.4; Lymphocytes % 14.4; MCH 34.3 pg (27.0-33.0); MCHC 31.9 % (32.0-36.0); MCV 108 fL (80-95); MPV 9.5 fL (8.0-11.0); Monocytes % 25.9; Neutrophils % 56.3; Platelet Count 145 10^3/uL (130-400); RBC 2.77 10^6/uL (3.93-5.22); RDW 18.1 % (11.7-14.6); RDW-SD 72.5 fL; WBC 7.07 10^3/uL (4.4-10.8)
[2023-07-28 10:21] LABS: ALT 21 U/L (14-59); AST 21 U/L (15-37); Alkaline Phosphatase 85 U/L (46-116); Anion Gap 8.4 mmol/L (3-11); BUN 26 mg/dL (7-18); Bilirubin, Total 0.2 mg/dL (0.2-1.0); CO2 26.6 mmol/L (21.0-32.0); CREATININE 1.3 mg/dL (0.55-1.02); Calcium 9.6 mg/dL (8.5-10.1); Chloride 102 mmol/L (98-107); Estimated GFR 43.69 (mL/min/1.73m2); Glucose 135 mg/dL (74-106); Magnesium 1.8 mg/dL (1.8-2.4); Potassium 5.2 mmol/L (3.5-5.1); Sodium 137 mmol/L (136-145); Total Protein 6.9 g/dL (6.4-8.2)
[2023-07-28] MEDS: Normal Saline Flush 10 ML SYR IVP (10:22)
[2023-07-28 10:33] LABS: Diff Comment Agrees w/ Instrument
[2023-07-28 10:34] LABS: Macrocytosis 1+; Polychromasia Present
[2023-07-30 09:36] LABS: CA 19-9 458 U/mL (<35)
== END 2023-08-03 23:59 | disposition home or self-care (01) ==
LOC: INF 03:14
PROVIDERS: Visit Provider Internal Medicine Hematology & Oncology
DX: E83.42 Hypomagnesemia (principal); C22.9 Malignant neoplasm of liver, not specified as primary or secondary; Z45.2 Encounter for adjustment and management of vascular access device
CPT/HCPCS: 36591; 80053; 96523; 83735; 85025; 86301

== ENCOUNTER 2023-08-27 00:26 | Outpatient (RCR) | payer MEDICARE, SELFPAY ==
[2023-08-04 00:16] VITALS: BP 104/45; PULSE 82; RESP 18; TEMP 35.9
[2023-08-13] MEDS: Normal Saline Flush 10 ML SYR IVP (08:24)
[2023-08-13 08:32] LABS: Abs Immature Grans 0.02 10^3/uL (0.0-0.06); Absolute Basophil Count 0.02 10^3/uL (0.0-0.2); Absolute Eosinophil Count 0.15 10^3/uL (0.0-0.7); Absolute Lymphocyte Count 0.49 10^3/uL (1.2-3.4); Absolute Monocyte Count 0.82 10^3/uL (0.1-0.8); Absolute Neutrophil Count 2.34 10^3/uL (1.2-6.7); Basophils % 0.5; Eosinophils % 3.9; HCT 26.6 % (36.0-46.0); HGB 8.8 g/dL (11.2-15.7); Immature Grans % 0.5; Lymphocytes % 12.8; MCH 35.1 pg (27.0-33.0); MCHC 33.1 % (32.0-36.0); MCV 106 fL (80-95); MPV 9.5 fL (8.0-11.0); Monocytes % 21.4; Neutrophils % 60.9; Platelet Count 119 10^3/uL (130-400); RBC 2.51 10^6/uL (3.93-5.22); RDW 17.1 % (11.7-14.6); RDW-SD 66.6 fL; WBC 3.84 10^3/uL (4.4-10.8)
[2023-08-13 08:50] LABS: ALT 15 U/L (14-59); AST 19 U/L (15-37); Albumin 2.9 g/dL (3.4-5.0); Alkaline Phosphatase 84 U/L (46-116); Anion Gap 6.4 mmol/L (3-11); BUN 29 mg/dL (7-18); Bilirubin, Total 0.3 mg/dL (0.2-1.0); CO2 25.6 mmol/L (21.0-32.0); CREATININE 1.5 mg/dL (0.55-1.02); Calcium 9.2 mg/dL (8.5-10.1); Chloride 103 mmol/L (98-107); Glucose 133 mg/dL (74-106); Magnesium 1.7 mg/dL (1.8-2.4); Potassium 4.4 mmol/L (3.5-5.1); Sodium 135 mmol/L (136-145); Total Protein 6.7 g/dL (6.4-8.2)
[2023-08-16 09:36] LABS: CA 19-9 524 U/mL (<35)
[2023-08-27 09:11] LABS: Abs Immature Grans 0.03 10^3/uL (0.0-0.06); Absolute Basophil Count 0.04 10^3/uL (0.0-0.2); Absolute Eosinophil Count 0.15 10^3/uL (0.0-0.7); Absolute Lymphocyte Count 0.75 10^3/uL (1.2-3.4); Absolute Monocyte Count 1.16 10^3/uL (0.1-0.8); Absolute Neutrophil Count 5.75 10^3/uL (1.2-6.7); Basophils % 0.5; Eosinophils % 1.9; HGB 9.1 g/dL (11.2-15.7); Immature Grans % 0.4; Lymphocytes % 9.5; MCH 35.1 pg (27.0-33.0); MCHC 32.5 % (32.0-36.0); MPV 10.4 fL (8.0-11.0); Monocytes % 14.7; Platelet Count 119 10^3/uL (130-400); RBC 2.59 10^6/uL (3.93-5.22); RDW 18.4 % (11.7-14.6); RDW-SD 71.2 fL; WBC 7.88 10^3/uL (4.4-10.8)
[2023-08-27 09:13] LABS: MCV 108 fL (80-95)
[2023-08-27 09:26] LABS: ALT 18 U/L (14-59); AST 21 U/L (15-37); Albumin 3.1 g/dL (3.4-5.0); Alkaline Phosphatase 83 U/L (46-116); Anion Gap 6.5 mmol/L (3-11); BUN 33 mg/dL (7-18); Bilirubin, Total 0.3 mg/dL (0.2-1.0); CO2 24.5 mmol/L (21.0-32.0); CREATININE 1.9 mg/dL (0.55-1.02); Calcium 9.1 mg/dL (8.5-10.1); Chloride 103 mmol/L (98-107); Estimated GFR 27.71 (mL/min/1.73m2); Glucose 116 mg/dL (74-106); Sodium 134 mmol/L (136-145); Total Protein 6.8 g/dL (6.4-8.2)
[2023-08-27] MEDS: Normal Saline Flush 10 ML SYR IVP (09:38)
[2023-08-27] MEDS: Heparin 500 UNITS/5 ML SYRINGE IV (09:38)
[2023-08-30 14:07] LABS: CA 19-9 137 U/mL (<35)
== END 2023-09-02 23:59 | disposition home or self-care (01) ==
LOC: INF 00:26
PROVIDERS: Visit Provider Internal Medicine Hematology & Oncology
DX: C22.1 Intrahepatic bile duct carcinoma (principal); E83.42 Hypomagnesemia; Z45.2 Encounter for adjustment and management of vascular access device
CPT/HCPCS: 36591; 80053; 83735; 85025; 86301

== ENCOUNTER 2023-09-30 08:00 | Outpatient (RCR) | payer MEDICARE, SELFPAY ==
[2023-09-03 00:22] VITALS: BP 104/45; PULSE 82; RESP 18; TEMP 35.9
[2023-09-10] MEDS: Normal Saline Flush 10 ML SYR IVP (09:38)
[2023-09-10 09:55] LABS: Abs Immature Grans 0.05 10^3/uL (0.0-0.06); HCT 28.1 % (36.0-46.0); HGB 9.1 g/dL (11.2-15.7); MCH 34.5 pg (27.0-33.0); MCHC 32.4 % (32.0-36.0); MCV 106 fL (80-95); MPV 9.6 fL (8.0-11.0); Platelet Count 130 10^3/uL (130-400); RBC 2.64 10^6/uL (3.93-5.22); RDW 18.5 % (11.7-14.6); RDW-SD 71.9 fL; WBC 10.25 10^3/uL (4.4-10.8)
[2023-09-10 10:08] LABS: Absolute Lymphocyte Count 1.54 10^3/uL (1.2-3.4); Absolute Monocyte Count 1.13 10^3/uL (0.1-0.8); Absolute Neutrophil Count 7.48 10^3/uL (1.2-6.7); Diff Comment Manual Differential
[2023-09-10 10:09] LABS: ALT 22 U/L (14-59); AST 22 U/L (15-37); Albumin 3.3 g/dL (3.4-5.0); Alkaline Phosphatase 82 U/L (46-116); Anion Gap 7.9 mmol/L (3-11); BUN 32 mg/dL (7-18); Bilirubin, Total 0.3 mg/dL (0.2-1.0); CO2 26.1 mmol/L (21.0-32.0); CREATININE 1.6 mg/dL (0.55-1.02); Calcium 9.4 mg/dL (8.5-10.1); Chloride 102 mmol/L (98-107); Estimated GFR 34.05 (mL/min/1.73m2); Glucose 120 mg/dL (74-106); Macrocytosis 1+; Polychromasia Present; Potassium 4.9 mmol/L (3.5-5.1); Sodium 136 mmol/L (136-145)
[2023-09-10 21:30] LABS: CA 19-9 509 U/mL (<35)
[2023-09-24] MEDS: Normal Saline Flush 10 ML SYR IVP (09:09)
[2023-09-24 09:17] LABS: Abs Immature Grans 0.04 10^3/uL (0.0-0.06); Absolute Basophil Count 0.05 10^3/uL (0.0-0.2); Absolute Eosinophil Count 0.19 10^3/uL (0.0-0.7); Absolute Lymphocyte Count 0.99 10^3/uL (1.2-3.4); Absolute Monocyte Count 1.71 10^3/uL (0.1-0.8); Absolute Neutrophil Count 6.21 10^3/uL (1.2-6.7); Basophils % 0.5; Eosinophils % 2.1; HCT 27.4 % (36.0-46.0); HGB 8.8 g/dL (11.2-15.7); Immature Grans % 0.4; Lymphocytes % 10.8; MCH 34.6 pg (27.0-33.0); MCHC 32.1 % (32.0-36.0); MPV 9.9 fL (8.0-11.0); Monocytes % 18.6; Neutrophils % 67.6; Platelet Count 133 10^3/uL (130-400); RBC 2.54 10^6/uL (3.93-5.22); RDW 18.2 % (11.7-14.6); WBC 9.19 10^3/uL (4.4-10.8)
[2023-09-24 09:19] LABS: MCV 108 fL (80-95)
[2023-09-24 09:42] LABS: ALT 18 U/L (14-59); AST 22 U/L (15-37); Albumin 3.1 g/dL (3.4-5.0); Alkaline Phosphatase 77 U/L (46-116); Anion Gap 9.5 mmol/L (3-11); BUN 23 mg/dL (7-18); Bilirubin, Total 0.4 mg/dL (0.2-1.0); CO2 26.5 mmol/L (21.0-32.0); CREATININE 1.7 mg/dL (0.55-1.02); Calcium 9.2 mg/dL (8.5-10.1); Chloride 100 mmol/L (98-107); Estimated GFR 31.66 (mL/min/1.73m2); Glucose 109 mg/dL (74-106); Potassium 5.1 mmol/L (3.5-5.1); Sodium 136 mmol/L (136-145); Total Protein 6.9 g/dL (6.4-8.2)
[2023-09-24 21:03] LABS: CA 19-9 521 U/mL (<35)
[2023-09-30 08:41] LABS: Abs Immature Grans 0.03 10^3/uL (0.0-0.06); Absolute Basophil Count 0.04 10^3/uL (0.0-0.2); Absolute Eosinophil Count 0.14 10^3/uL (0.0-0.7); Absolute Lymphocyte Count 0.72 10^3/uL (1.2-3.4); Basophils % 0.6; Eosinophils % 2.2; HCT 28.1 % (36.0-46.0); HGB 9.2 g/dL (11.2-15.7); Immature Grans % 0.5; Lymphocytes % 11.4; MCH 35.8 pg (27.0-33.0); MCHC 32.7 % (32.0-36.0); MCV 109 fL (80-95); MPV 9.4 fL (8.0-11.0); Monocytes % 14.2; Neutrophils % 71.1; Platelet Count 145 10^3/uL (130-400); RBC 2.57 10^6/uL (3.93-5.22); RDW 17.5 % (11.7-14.6); RDW-SD 70.7 fL; WBC 6.33 10^3/uL (4.4-10.8)
[2023-09-30 08:52] LABS: ALT 17 U/L (14-59); AST 18 U/L (15-37); Albumin 2.9 g/dL (3.4-5.0); Alkaline Phosphatase 73 U/L (46-116); Anion Gap 5.9 mmol/L (3-11); BUN 24 mg/dL (7-18); Bilirubin, Total 0.3 mg/dL (0.2-1.0); CO2 28.1 mmol/L (21.0-32.0); CREATININE 1.5 mg/dL (0.55-1.02); Calcium 9.2 mg/dL (8.5-10.1); Chloride 103 mmol/L (98-107); Glucose 149 mg/dL (74-106); Potassium 4.5 mmol/L (3.5-5.1); Sodium 137 mmol/L (136-145); Total Protein 6.6 g/dL (6.4-8.2)
[2023-09-30 08:56] LABS: Macrocytosis 1+; Polychromasia Present
[2023-09-30] MEDS: Normal Saline Flush 10 ML SYR IVP (14:37)
== END 2023-10-03 23:59 | disposition home or self-care (01) ==
LOC: INF 08:00
PROVIDERS: Visit Provider Internal Medicine Hematology & Oncology
DX: C22.1 Intrahepatic bile duct carcinoma (principal)
CPT/HCPCS: 36591; 80053; 85025; 86301

== ENCOUNTER 2023-10-29 01:07 | Outpatient (RCR) | payer MEDICARE, SELFPAY ==
[2023-10-04 00:22] VITALS: BP 104/45; PULSE 82; RESP 18; TEMP 35.9
[2023-10-15] MEDS: Normal Saline Flush 10 ML SYR IVP (08:09)
[2023-10-15 08:57] LABS: Abs Immature Grans 0.04 10^3/uL (0.0-0.06); Absolute Basophil Count 0.05 10^3/uL (0.0-0.2); Absolute Eosinophil Count 0.22 10^3/uL (0.0-0.7); Absolute Lymphocyte Count 0.73 10^3/uL (1.2-3.4); Absolute Monocyte Count 1.01 10^3/uL (0.1-0.8); Absolute Neutrophil Count 5.57 10^3/uL (1.2-6.7); Basophils % 0.7; Eosinophils % 2.9; HCT 28.6 % (36.0-46.0); Immature Grans % 0.5; Lymphocytes % 9.6; MCH 33.8 pg (27.0-33.0); MCHC 31.5 % (32.0-36.0); Monocytes % 13.3; Platelet Count 183 10^3/uL (130-400); RBC 2.66 10^6/uL (3.93-5.22); RDW 16.1 % (11.7-14.6); RDW-SD 63.7 fL; WBC 7.62 10^3/uL (4.4-10.8)
[2023-10-15 09:02] LABS: MCV 108 fL (80-95)
[2023-10-15 09:05] LABS: ALT 16 U/L (14-59); AST 17 U/L (15-37); Albumin 2.9 g/dL (3.4-5.0); Alkaline Phosphatase 79 U/L (46-116); Anion Gap 9.6 mmol/L (3-11); BUN 25 mg/dL (7-18); Bilirubin, Total 0.4 mg/dL (0.2-1.0); CO2 27.4 mmol/L (21.0-32.0); CREATININE 1.5 mg/dL (0.55-1.02); Calcium 9.4 mg/dL (8.5-10.1); Chloride 101 mmol/L (98-107); Glucose 183 mg/dL (74-106); Potassium 4.8 mmol/L (3.5-5.1); Sodium 138 mmol/L (136-145); Total Protein 6.8 g/dL (6.4-8.2)
[2023-10-18 09:48] LABS: CA 19-9 331 U/mL (<35)
[2023-10-29] MEDS: Normal Saline Flush 10 ML SYR IVP (08:07)
[2023-10-29 08:19] LABS: Abs Immature Grans 0.03 10^3/uL (0.0-0.06); Absolute Basophil Count 0.03 10^3/uL (0.0-0.2); Absolute Eosinophil Count 0.18 10^3/uL (0.0-0.7); Absolute Monocyte Count 0.84 10^3/uL (0.1-0.8); Absolute Neutrophil Count 5.17 10^3/uL (1.2-6.7); Basophils % 0.4; Eosinophils % 2.6; HCT 27.4 % (36.0-46.0); HGB 8.7 g/dL (11.2-15.7); Immature Grans % 0.4; Lymphocytes % 11.3; MCH 33.7 pg (27.0-33.0); MCHC 31.8 % (32.0-36.0); MCV 106 fL (80-95); MPV 9.7 fL (8.0-11.0); Monocytes % 11.9; Neutrophils % 73.4; Platelet Count 155 10^3/uL (130-400); RBC 2.58 10^6/uL (3.93-5.22); RDW 16.9 % (11.7-14.6); RDW-SD 64.5 fL; WBC 7.05 10^3/uL (4.4-10.8)
[2023-10-29 08:38] LABS: ALT 14 U/L (14-59); AST 15 U/L (15-37); Albumin 2.9 g/dL (3.4-5.0); Alkaline Phosphatase 79 U/L (46-116); Anion Gap 8.7 mmol/L (3-11); BUN 24 mg/dL (7-18); Bilirubin, Total 0.4 mg/dL (0.2-1.0); CO2 28.3 mmol/L (21.0-32.0); CREATININE 1.7 mg/dL (0.55-1.02); Calcium 9.5 mg/dL (8.5-10.1); Chloride 103 mmol/L (98-107); Estimated GFR 31.66 (mL/min/1.73m2); Glucose 147 mg/dL (74-106); Potassium 4.7 mmol/L (3.5-5.1); Sodium 140 mmol/L (136-145); Total Protein 6.7 g/dL (6.4-8.2)
[2023-10-29 08:48] LABS: Macrocytosis 1+
[2023-10-31 13:13] LABS: CA 19-9 311 U/mL (<35)
== END 2023-11-03 23:59 | disposition home or self-care (01) ==
LOC: INF 01:07
PROVIDERS: Visit Provider Nurse Practitioner Family
DX: C22.1 Intrahepatic bile duct carcinoma (principal); C22.9 Malignant neoplasm of liver, not specified as primary or secondary; Z45.2 Encounter for adjustment and management of vascular access device
CPT/HCPCS: 36591; 80053; 85025; 86301

== ENCOUNTER 2023-12-02 09:35 | Outpatient (RCR) | payer MEDICARE, SELFPAY ==
[2023-11-04 00:09] VITALS: BP 104/45; PULSE 82; RESP 18; TEMP 35.9
[2023-11-17] MEDS: Normal Saline Flush 10 ML SYR IVP (09:00)
[2023-11-17 09:26] LABS: Abs Immature Grans 0.19 10^3/uL (0.0-0.06); Absolute Basophil Count 0.07 10^3/uL (0.0-0.2); Absolute Lymphocyte Count 1.03 10^3/uL (1.2-3.4); Absolute Monocyte Count 1.04 10^3/uL (0.1-0.8); Basophils % 0.6; Eosinophils % 1.7; HCT 28.6 % (36.0-46.0); HGB 8.7 g/dL (11.2-15.7); Immature Grans % 1.6; Lymphocytes % 8.5; MCH 30.9 pg (27.0-33.0); MCHC 30.4 % (32.0-36.0); MCV 101 fL (80-95); MPV 9.8 fL (8.0-11.0); Monocytes % 8.6; Platelet Count 273 10^3/uL (130-400); RBC 2.82 10^6/uL (3.93-5.22); RDW 17.2 % (11.7-14.6)
[2023-11-17 09:27] LABS: Absolute Eosinophil Count 0.21 10^3/uL (0.0-0.7); Absolute Neutrophil Count 9.56 10^3/uL (1.2-6.7)
[2023-11-17 09:40] LABS: ALT 21 U/L (14-59); AST 24 U/L (15-37); Albumin 2.3 g/dL (3.4-5.0); Alkaline Phosphatase 125 U/L (46-116); Anion Gap 10.1 mmol/L (3-11); BUN 25 mg/dL (7-18); Bilirubin, Total 0.2 mg/dL (0.2-1.0); CO2 26.9 mmol/L (21.0-32.0); CREATININE 1.6 mg/dL (0.55-1.02); Calcium 8.8 mg/dL (8.5-10.1); Chloride 100 mmol/L (98-107); Estimated GFR 34.05 (mL/min/1.73m2); Glucose 206 mg/dL (74-106); Potassium 5.1 mmol/L (3.5-5.1); Sodium 137 mmol/L (136-145); Total Protein 6.7 g/dL (6.4-8.2)
[2023-11-17 20:53] LABS: CA 19-9 380 U/mL (<35)
[2023-12-02] MEDS: Normal Saline Flush 10 ML SYR IVP (09:40)
[2023-12-02 10:31] LABS: Abs Immature Grans 0.06 10^3/uL (0.0-0.06); HGB 7.5 g/dL (11.2-15.7); MCH 31.6 pg (27.0-33.0); MCHC 31.3 % (32.0-36.0); MCV 101 fL (80-95); MPV 9.8 fL (8.0-11.0); Platelet Count 211 10^3/uL (130-400); RBC 2.37 10^6/uL (3.93-5.22); RDW 18.7 % (11.7-14.6); RDW-SD 69.1 fL; WBC 4.87 10^3/uL (4.4-10.8)
[2023-12-02 10:46] LABS: ALT 13 U/L (14-59); AST 12 U/L (15-37); Albumin 2.3 g/dL (3.4-5.0); Alkaline Phosphatase 97 U/L (46-116); Anion Gap 10.6 mmol/L (3-11); BUN 27 mg/dL (7-18); Bilirubin, Total 0.4 mg/dL (0.2-1.0); CO2 25.4 mmol/L (21.0-32.0); CREATININE 1.7 mg/dL (0.55-1.02); Calcium 8.9 mg/dL (8.5-10.1); Chloride 100 mmol/L (98-107); Estimated GFR 31.66 (mL/min/1.73m2); Glucose 200 mg/dL (74-106); Potassium 4.5 mmol/L (3.5-5.1); Sodium 136 mmol/L (136-145); Total Protein 6.2 g/dL (6.4-8.2)
[2023-12-02 10:55] LABS: Absolute Lymphocyte Count 0.24 10^3/uL (1.2-3.4); Absolute Neutrophil Count 3.65 10^3/uL (1.2-6.7); Bands % 8
[2023-12-02 10:56] LABS: Absolute Eosinophil Count 0.19 10^3/uL (0.0-0.7); Absolute Monocyte Count 0.78 10^3/uL (0.1-0.8); Diff Comment Manual Differential; Polychromasia Present
[2023-12-02 11:58] LABS: Reticulocyte 4.8 % (0.5-2.4)
[2023-12-02 11:59] LABS: Iron 13 ug/dL (50-170); Total Iron Binding Capacity 226 ug/dL (250-450); Transferrin Sat 6 % (15-50)
[2023-12-02 12:26] LABS: Ferritin 285 ng/mL (8-252); Folate > 20.0 ng/mL (8.6-20.0); Vitamin B12 > 2000 pg/mL (193-986)
[2023-12-02 12:52] VITALS: BP 91/54; PULSE 62; RESP 17; TEMP 36.8; O2SAT 97
[2023-12-02 13:07] VITALS: BP 96/50; PULSE 78; RESP 17; TEMP 36.3; O2SAT 97
[2023-12-02 13:23] VITALS: BP 107/69; PULSE 75; RESP 17; TEMP 36.3; O2SAT 98
[2023-12-02 13:37] VITALS: BP 95/56; PULSE 83; RESP 20; TEMP 36.2; O2SAT 98
[2023-12-02 14:30] VITALS: BP 121/71; PULSE 71; RESP 16; TEMP 36.1; O2SAT 98
[2023-12-03 09:10] LABS: Haptoglobin 360 mg/dL (32-197)
[2023-12-03 09:29] LABS: CA 19-9 344 U/mL (<35)
== END 2023-12-02 23:59 | disposition home or self-care (01) ==
LOC: INF 09:35
PROVIDERS: Internal Medicine Hematology & Oncology; Visit Provider Nurse Practitioner Family
DX: C22.1 Intrahepatic bile duct carcinoma (principal); D53.9 Nutritional anemia, unspecified; Z45.2 Encounter for adjustment and management of vascular access device
CPT/HCPCS: 36430; 36591; 80053; 86850; 86900; 86901; 86920; 82607; 82728; 82746; 83010; 83540; 83550; 85025; 85045; 86301; P9016

== ENCOUNTER 2023-12-24 01:01 | Outpatient (RCR) | payer MEDICARE, SELFPAY ==
[2023-12-03 00:04] VITALS: BP 104/45; PULSE 82; RESP 18; TEMP 35.9
[2023-12-10] MEDS: Normal Saline Flush 10 ML SYR IVP (07:47)
[2023-12-10 08:08] LABS: Abs Immature Grans 0.29 10^3/uL (0.0-0.06); Absolute Lymphocyte Count 1.22 10^3/uL (1.2-3.4); Basophils % 0.5; Eosinophils % 1.1; HCT 31.8 % (36.0-46.0); HGB 9.7 g/dL (11.2-15.7); Immature Grans % 1.5; Lymphocytes % 6.2; MCHC 30.5 % (32.0-36.0); MCV 99 fL (80-95); MPV 9.8 fL (8.0-11.0); Monocytes % 6.7; Platelet Count 272 10^3/uL (130-400); RBC 3.23 10^6/uL (3.93-5.22); RDW 18.2 % (11.7-14.6); RDW-SD 65.8 fL; WBC 19.75 10^3/uL (4.4-10.8)
[2023-12-10 08:10] LABS: Absolute Eosinophil Count 0.22 10^3/uL (0.0-0.7); Absolute Monocyte Count 1.32 10^3/uL (0.1-0.8); Absolute Neutrophil Count 16.59 10^3/uL (1.2-6.7)
[2023-12-10 08:28] LABS: ALT 17 U/L (14-59); AST 28 U/L (15-37); Albumin 2.4 g/dL (3.4-5.0); Alkaline Phosphatase 106 U/L (46-116); Anion Gap 9.1 mmol/L (3-11); BUN 23 mg/dL (7-18); Bilirubin, Total 0.3 mg/dL (0.2-1.0); CO2 25.9 mmol/L (21.0-32.0); CREATININE 1.8 mg/dL (0.55-1.02); Calcium 9.3 mg/dL (8.5-10.1); Chloride 100 mmol/L (98-107); Estimated GFR 29.57 (mL/min/1.73m2); Glucose 211 mg/dL (74-106); Potassium 4.7 mmol/L (3.5-5.1); Sodium 135 mmol/L (136-145); Total Protein 6.7 g/dL (6.4-8.2)
[2023-12-13 09:50] LABS: CA 19-9 438 U/mL (<35)
[2023-12-24] MEDS: Normal Saline Flush 10 ML SYR IVP (10:08)
[2023-12-24 10:15] LABS: Abs Immature Grans 0.07 10^3/uL (0.0-0.06); Absolute Basophil Count 0.05 10^3/uL (0.0-0.2); Absolute Lymphocyte Count 1.28 10^3/uL (1.2-3.4); Absolute Neutrophil Count 9.75 10^3/uL (1.2-6.7); Basophils % 0.4; Eosinophils % 1.8; HCT 31.7 % (36.0-46.0); HGB 9.6 g/dL (11.2-15.7); Immature Grans % 0.6; Lymphocytes % 10.3; MCH 29.4 pg (27.0-33.0); MCHC 30.3 % (32.0-36.0); MCV 97 fL (80-95); MPV 8.5 fL (8.0-11.0); Monocytes % 8.7; Neutrophils % 78.2; Platelet Count 217 10^3/uL (130-400); RBC 3.26 10^6/uL (3.93-5.22); RDW 17.2 % (11.7-14.6); RDW-SD 61.9 fL; WBC 12.47 10^3/uL (4.4-10.8)
[2023-12-24 10:18] LABS: Absolute Eosinophil Count 0.22 10^3/uL (0.0-0.7); Absolute Monocyte Count 1.08 10^3/uL (0.1-0.8)
[2023-12-24 10:31] LABS: ALT 17 U/L (14-59); AST 20 U/L (15-37); Albumin 2.8 g/dL (3.4-5.0); Alkaline Phosphatase 85 U/L (46-116); Anion Gap 8.3 mmol/L (3-11); BUN 26 mg/dL (7-18); Bilirubin, Total 0.3 mg/dL (0.2-1.0); CO2 27.7 mmol/L (21.0-32.0); CREATININE 1.5 mg/dL (0.55-1.02); Calcium 9.4 mg/dL (8.5-10.1); Chloride 100 mmol/L (98-107); Glucose 154 mg/dL (74-106); Potassium 4.7 mmol/L (3.5-5.1); Sodium 136 mmol/L (136-145)
[2023-12-27 10:00] LABS: CA 19-9 534 U/mL (<35)
== END 2024-01-02 23:59 | disposition home or self-care (01) ==
LOC: INF 01:01
PROVIDERS: Visit Provider Nurse Practitioner Family
DX: C22.1 Intrahepatic bile duct carcinoma (principal); Z45.2 Encounter for adjustment and management of vascular access device
CPT/HCPCS: 36591; 80053; 85025; 86301

== ENCOUNTER 2024-01-28 00:43 | Outpatient (RCR) | payer MEDICARE, SELFPAY ==
[2024-01-03 00:03] VITALS: BP 104/45; PULSE 82; RESP 18; TEMP 35.9
[2024-01-07] MEDS: Normal Saline Flush 10 ML SYR IVP (10:02)
[2024-01-07 10:18] LABS: HCT 25.9 % (36.0-46.0); HGB 8.2 g/dL (11.2-15.7); MCH 29.8 pg (27.0-33.0); MCHC 31.7 % (32.0-36.0); MCV 94 fL (80-95); MPV 9.7 fL (8.0-11.0); RBC 2.75 10^6/uL (3.93-5.22); RDW 18.2 % (11.7-14.6); RDW-SD 61.6 fL; WBC 5.82 10^3/uL (4.4-10.8)
[2024-01-07 10:34] LABS: ALT 15 U/L (14-59); AST 11 U/L (15-37); Albumin 2.4 g/dL (3.4-5.0); Alkaline Phosphatase 90 U/L (46-116); Anion Gap 12.6 mmol/L (3-11); BUN 25 mg/dL (7-18); Bilirubin, Total 0.3 mg/dL (0.2-1.0); CO2 22.4 mmol/L (21.0-32.0); CREATININE 1.4 mg/dL (0.55-1.02); Calcium 8.4 mg/dL (8.5-10.1); Chloride 105 mmol/L (98-107); Estimated GFR 39.97 (mL/min/1.73m2); Glucose 147 mg/dL (74-106); Potassium 3.4 mmol/L (3.5-5.1); Sodium 140 mmol/L (136-145); Total Protein 6.2 g/dL (6.4-8.2)
[2024-01-07 10:35] LABS: Absolute Basophil Count 0.06 10^3/uL (0.0-0.2); Absolute Eosinophil Count 0.35 10^3/uL (0.0-0.7); Absolute Lymphocyte Count 0.81 10^3/uL (1.2-3.4); Absolute Monocyte Count 0.87 10^3/uL (0.1-0.8); Absolute Neutrophil Count 3.72 10^3/uL (1.2-6.7); Anisocytosis 2+; Atypical Lymphocytes % 0; Bands % 7; Diff Comment Manual Differential; Platelet Count 210 10^3/uL (130-400); Poikilocytes 1+; Polychromasia Present
[2024-01-07 23:28] LABS: CA 19-9 389 U/mL (<35)
[2024-01-28 10:47] LABS: Abs Immature Grans 0.09 10^3/uL (0.0-0.06); Absolute Basophil Count 0.07 10^3/uL (0.0-0.2); Absolute Eosinophil Count 0.67 10^3/uL (0.0-0.7); Absolute Monocyte Count 1.34 10^3/uL (0.1-0.8); Absolute Neutrophil Count 7.15 10^3/uL (1.2-6.7); Basophils % 0.7; Eosinophils % 6.3; HCT 30.1 % (36.0-46.0); HGB 9.5 g/dL (11.2-15.7); Immature Grans % 0.8; Lymphocytes % 12.2; MCHC 31.6 % (32.0-36.0); MCV 95 fL (80-95); MPV 9.4 fL (8.0-11.0); Monocytes % 12.6; Neutrophils % 67.4; Platelet Count 223 10^3/uL (130-400); RBC 3.17 10^6/uL (3.93-5.22); RDW 18.9 % (11.7-14.6); RDW-SD 65.8 fL; WBC 10.62 10^3/uL (4.4-10.8)
[2024-01-28] MEDS: Normal Saline Flush 10 ML SYR IVP (10:51)
[2024-01-28 11:01] LABS: ALT 17 U/L (14-59); AST 15 U/L (15-37); Albumin 2.9 g/dL (3.4-5.0); Alkaline Phosphatase 108 U/L (46-116); Anion Gap 10.7 mmol/L (3-11); BUN 22 mg/dL (7-18); Bilirubin, Total 0.3 mg/dL (0.2-1.0); CO2 25.3 mmol/L (21.0-32.0); CREATININE 1.4 mg/dL (0.55-1.02); Calcium 9.2 mg/dL (8.5-10.1); Chloride 100 mmol/L (98-107); Estimated GFR 39.97 (mL/min/1.73m2); Glucose 161 mg/dL (74-106); Potassium 4.6 mmol/L (3.5-5.1); Sodium 136 mmol/L (136-145); Total Protein 6.7 g/dL (6.4-8.2)
[2024-01-28 20:47] LABS: CA 19-9 222 U/mL (<35)
== END 2024-02-01 23:59 | disposition home or self-care (01) ==
LOC: INF 00:43
PROVIDERS: Visit Provider Nurse Practitioner Family
DX: C22.1 Intrahepatic bile duct carcinoma (principal); Z45.2 Encounter for adjustment and management of vascular access device
CPT/HCPCS: 36591; 80053; 85025; 86301

== ENCOUNTER 2024-02-25 02:18 | Outpatient (RCR) | payer MEDICARE, SELFPAY ==
[2024-02-02 00:04] VITALS: BP 104/45; PULSE 82; RESP 18; TEMP 35.9
[2024-02-10 10:27] LABS: Abs Immature Grans 0.04 10^3/uL (0.0-0.06); Absolute Basophil Count 0.03 10^3/uL (0.0-0.2); Absolute Eosinophil Count 0.45 10^3/uL (0.0-0.7); Absolute Lymphocyte Count 0.89 10^3/uL (1.2-3.4); Absolute Monocyte Count 0.85 10^3/uL (0.1-0.8); Absolute Neutrophil Count 6.62 10^3/uL (1.2-6.7); Basophils % 0.3 %; Eosinophils % 5.1 %; HCT 26.8 % (36.0-46.0); HGB 8.6 g/dL (11.2-15.7); Immature Grans % 0.5 %; MCHC 32.1 % (32.0-36.0); MCV 97 fL (80-95); MPV 9.3 fL (8.0-11.0); Monocytes % 9.6 %; Neutrophils % 74.5 %; Platelet Count 185 10^3/uL (130-400); RBC 2.77 10^6/uL (3.93-5.22); RDW 19.5 % (11.7-14.6); RDW-SD 68.6 fL; WBC 8.88 10^3/uL (4.4-10.8)
[2024-02-10 10:44] LABS: ALT 16 U/L (14-59); AST 17 U/L (15-37); Alkaline Phosphatase 91 U/L (46-116); Anion Gap 9.3 mmol/L (3-11); BUN 27 mg/dL (7-18); Bilirubin, Total 0.4 mg/dL (0.2-1.0); CO2 25.7 mmol/L (21.0-32.0); CREATININE 1.6 mg/dL (0.55-1.02); Chloride 101 mmol/L (98-107); Estimated GFR 33.84 (mL/min/1.73m2); Glucose 156 mg/dL (74-106); Potassium 4.5 mmol/L (3.5-5.1); Sodium 136 mmol/L (136-145); Total Protein 6.7 g/dL (6.4-8.2)
[2024-02-10] MEDS: Normal Saline Flush 10 ML SYR IVP (12:36)
[2024-02-11 09:26] LABS: CA 19-9 469 U/mL (<35)
== END 2024-03-03 23:59 | disposition home or self-care (01) ==
LOC: INF 02:18
PROVIDERS: Visit Provider Nurse Practitioner Family
DX: C22.1 Intrahepatic bile duct carcinoma (principal)
CPT/HCPCS: 36591; 80053; 85025; 86301

== ENCOUNTER 2024-03-17 08:09 | Day surgery (SDC) | payer MEDICARE, SELFPAY ==
[2024-03-17 08:31] VITALS: BP 117/95; PULSE 63; RESP 16; TEMP 36.1; O2SAT 99
--- NOTE | 2024-03-17 08:44 | W.PREOPHP ---
Assessment and Plan Assessment and plan (1) Posterior subcapsular age-related cataract, right eye: Status: Acute Assessment and plan: Assessment: Visually significant cataract of the right eye. Plan: Cataract extraction with lens implantation of the right eye. (2) Cortical age-related cataract, right eye: Status: Acute Assessment and plan: Assessment: Visually significant cataract of the right eye. Plan: Cataract extraction with lens implantation of the right eye. History of Present Illness History of Present Illness Chief Complaint: Progressive decreased vision, right eye Narrative: The patient is a 74-year-old lady with history of progressive decreased vision in both eyes at both distance and near. She notes significant difficulty driving at night due to glare. She cannot read fine print and has a hard time reading medicine bottles. She often needs a magnifying glass. On examination she was noted to have moderate bilateral nuclear cataracts with best corrected vision of 20/40 but with significant glare disability. The option of cataract surgery was offered to the patient and she felt she was symptomatic enough that she wished to proceed. See office notes for detailed information. Review of Systems All systems reviewed & are unremarkable except as noted in HPI and below PFSH All Active Problems Posterior subcapsular age-related cataract, right eye (Acute) Cortical age-related cataract, right eye (Acute) Nuclear age-related cataract, right eye (Acute) Cardiomyopathy (Acute) Diabetes mellitus (Chronic) Coronary artery disease (Chronic) Liver cancer (Acute) Atrial fibrillation (Chronic) Pneumonia (Acute) Medical History Strangulated hernia of abdominal wall PAF (paroxysmal atrial fibrillation) Surgical History S/P small bowel resection S/P tubal ligation S/P APOLINAR-BSO History of cholecystectomy S/P aortic valve replacement (~03/2022) S/P CABG x 3 (~03/2022) Social History Smoking/Tobacco Use Status: Former Tobacco Use Quit Date: 10/04/10 Smoking risk assessment performed?: Yes Alcohol Intake: former Drug use: Never Substance use type: does not use Details: 03/16/24: took CBD gummies to help with sleep Housing: house Do you feel safe at home: Yes Do you feel safe in your relationship?: Yes Meds Allergies and Home Medications Allergies Allergy/AdvReac Type Severity Reaction Status Date / Time No Known Allergies Allergy Verified 03/17/24 08:42 Home Medications Medication Instructions Recorded Confirmed Type clopidogrel 75 mg tablet (Plavix) 75 mg PO DAILY 02/01/23 03/17/24 History magnesium oxide 400 mg PO BID 02/01/23 03/17/24 History vit C 250 mg-E 90 mg-zinc 40 1 cap PO BID 02/01/23 03/17/24 History mg-copper 2 mg-lutein 5 mg-zeaxan capsule (Eye Multivitamin (lutein-zeaxan)) apixaban 5 mg tablet (Eliquis) 5 mg PO BID #60 tabs 02/04/23 03/17/24 Rx metoprolol succinate 100 mg 200 mg PO DAILY 02/18/23 03/17/24 History tablet,extended release 24 hr pantoprazole 40 mg tablet,delayed 40 mg PO DAILY 03/14/24 03/17/24 History release vitamin B complex 1 tab PO DAILY 03/14/24 03/17/24 History Exam Eyes Other: Most recent ocular examination is significant for best corrected visual acuity of 20/40 OD, 20/40 OS. Extract motility is normal. Intraocular pressure is 14 OU. Slit-lamp examination is significant for pupils dilating to 5 mm OU. Moderate bilateral nuclear cataract OU. Dilated funduscopic examination shows normal disc, vessels, macula, peripheral retina and vitreous. Resp Auscultation: clear to auscultation bilaterally Cardio Rate: regular rate Rhythm: regular rhythm Results Last Vital Signs Temp 36.1 C L 03/17/24 08:31 Pulse 63 03/17/24 08:31 Resp 16 03/17/24 08:31 BP 117/95 H 03/17/24 08:31 Pulse Ox 99 03/17/24 08:31
--- NOTE | 2024-03-17 09:01 | ANES.PREOP_ITS ---
General Info Date of Service Date Performed: 03/17/24 Height: 4 ft 10 in Weight: 66.678 kg Body Mass Index (BMI): 30.7 Surgical Procedure: Operation Date: 03/17/24 09:55 Proposed Procedure Side Surgeon p Cataract Extraction with IOL Implant Right Russell Styles MD Meds Allergies and Home Medications Allergies Allergy/AdvReac Type Severity Reaction Status Date / Time No Known Allergies Allergy Verified 03/17/24 08:42 Home Medication Medication Instructions Recorded clopidogrel 75 mg tablet (Plavix) 75 mg PO DAILY 02/01/23 magnesium oxide 400 mg PO BID 02/01/23 vit C 250 mg-E 90 mg-zinc 40 1 cap PO BID 02/01/23 mg-copper 2 mg-lutein 5 mg-zeaxan capsule (Eye Multivitamin (lutein-zeaxan)) apixaban 5 mg tablet (Eliquis) 5 mg PO BID #60 tabs 02/04/23 metoprolol succinate 100 mg 200 mg PO DAILY 02/18/23 tablet,extended release 24 hr pantoprazole 40 mg tablet,delayed 40 mg PO DAILY 03/14/24 release vitamin B complex 1 tab PO DAILY 03/14/24 fluorouracil IV Chemotherapy 03/17/24 Current Visit Medications: Current Medications Generic Name Dose Route Start Last Admin Trade Name Freq PRN Reason Stop Dose Admin Acetaminophen 1,000 mg 03/17/24 06:00 Acetaminophen 500 Mg Tab PO 04/16/24 05:59 Q4H PRN PRN Balanced Salt Solution 500 ml 03/17/24 06:00 Balanced Salt Soln.-Plus 500 Ml Bag OP 04/16/24 05:59 DIRECTED [facility] Miscellaneous Medication 0 ml 03/17/24 06:00 Prednisolone 1%, Moxifloxacin 0.5%, Bromfenac 0.09% 5ml Btl OD 04/16/24 05:59 DIRECTED JUDY Miscellaneous Medication 0 ml 03/17/24 06:00 03/17/24 08:55 Tropicam./Phenyleph. (1/2.5%) 10 Ml Btl OD 04/16/24 05:59 1 drp DIRECTED JUDY Administration Tetracaine HCl 0 ml 03/17/24 06:00 Tetracaine 0.5% 4 Ml Btl OD 04/16/24 05:59 DIRECTED [facility] PFSH Active Problems Active Problems: Problem Status Onset Code Posterior subcapsular age-related cataract, right eye H25.041 Cortical age-related cataract, right eye H25.011 Nuclear age-related cataract, right eye H25.11 Cardiomyopathy I42.9 Diabetes mellitus E11.9 Coronary artery disease I25.10 Liver cancer C22.9 Atrial fibrillation I48.91 Pneumonia J18.9 Medical History Medical History Strangulated hernia of abdominal wall PAF (paroxysmal atrial fibrillation) Surgical History Surgical History S/P small bowel resection S/P tubal ligation S/P APOLINAR-BSO History of cholecystectomy S/P aortic valve replacement (~03/2022) S/P CABG x 3 (~03/2022) Tobacco Smoking/Tobacco Use Status: Former Tobacco Use Alcohol Alcohol Intake: former Substance Use Substance use: Never Substance use type: does not use Details: 03/16/24: took CBD gummies to help with sleep Vital Signs and Lab Results Vital Signs Most Recent Vital Signs in EMR: Most Recent Vital Signs Temp Pulse Resp BP Pulse Ox 36.1 C L 63 16 117/95 H 99 03/17/24 08:31 03/17/24 08:31 03/17/24 08:31 03/17/24 08:31 03/17/24 08:31 Lab Results Blood Type / Crossmatch: No Data to Display Complete Blood Count: White Blood Count 11.03 10^3/uL (4.4-10.8) H 03/16/24 08:39 Red Blood Count 3.67 10^6/uL (3.93-5.22) L 03/16/24 08:39 Hemoglobin 11.0 g/dL (11.2-15.7) L 03/16/24 08:39 Hematocrit 34.6 % (36.0-46.0) L 03/16/24 08:39 Platelet Count 242 10^3/uL (130-400) 03/16/24 08:39 Complete Metabolic Panel: Sodium 139 mmol/L (136-145) 03/16/24 08:39 Potassium 4.2 mmol/L (3.5-5.1) 03/16/24 08:39 Chloride 100 mmol/L (98-107) 03/16/24 08:39 Carbon Dioxide 25.9 mmol/L (21.0-32.0) 03/16/24 08:39 BUN 30 mg/dL (7-18) H 03/16/24 08:39 Creatinine 1.7 mg/dL (0.55-1.02) H 03/16/24 08:39 Est GFR (CKD-EPI 2020) 31.47 (mL/min/1.73m2) 03/16/24 08:39 Calcium 10.2 mg/dL (8.5-10.1) H 03/16/24 08:39 Albumin 3.1 g/dL (3.4-5.0) L 03/16/24 08:39 Glucose 161 mg/dL (74-106) H 03/16/24 08:39 Liver Function Panel: Alanine Aminotransferase (ALT/SGPT) 30 U/L (14-59) 03/16/24 08: 39 Aspartate Amino Transf (AST/SGOT) 31 U/L (15-37) 03/16/24 08:39 Coagulation Panel: No Data to Display Cardiac Panel: No Data to Display Arterial Blood Gas: No Data to Display Venous Blood Gas: No Data to Display Pancreas Panel: No Data to Display Thyroid Panel: No Data to Display Infectious Disease: No Data to Display Blood Cultures: No Data to Display Toxicology Panel: No Data to Display Imaging and Studies Imaging and Studies Study information below may be from another EMR and interpreted by another provider. Please see original notes in EMR for more complete details. EKG Summary: Conclusion Atrial flutter with predominant 2:1 AV block...A-rate 294, multiple Ps RBBB and LPFB...QRSd >120mS, axis(90,210) ST depression, consider ischemia, diffuse lds...ST <-0.10mV, ant/lat/inf Troponins negative, asymptomatic per ER provider note. Echocardiogram Summary: Conclusion Normal left ventricular wall thickness and chamber size. Ejection fraction is 40 to 45%. There is global hypokinesis Right ventricle is not well visualized Left atrium is moderately dilated. Right atrial size is normal There is a bioprosthetic aortic valve with a mean gradient of 16. There is no aortic regurgitation Thickened mitral leaflets. Moderate to severe mitral annular calcification. Mioderate mitral regurgitation Normal tricuspid valve with moderate to severe regurgitation. Estimated right ventricular systolic pressure is 39 mmHg 02/02/23 Anesthesia Assessment and Plan Anesthesia History Personal History: No History of Anesthesia Complications Family History: No Family History of Anesthesia Complications Exercise Tolerance Exercise Tolerance: Metabolic Equivalents<4 Pertinent Negatives Pertinent Negatives: No Major Cardiovascular Symptoms or Complaints and No Major Pulmonary Symptoms or Complaints Cardiac & Pulmonary Exam Cardiac Exam: Normal S1/S2 Heart Sounds Pulmonary Exam: Clear Bilateral Breath Sounds (lungs cleared with cough, bronchitis 2 weeks ago) Implantable Cardiac Device Does patient have a Pacemaker or an ICD?: No Airway Exam Known Difficult Airway: No Mallampati Class: 2 Mouth Opening: Normal (> 3cm) Thyromental Distance: Greater than 3 cm Neck Range of Motion: Full ROM Neck Circumference: Normal Teeth Condition: Removable Dentures/Plates Upper and Removable Dentures/Plates Lower (partial) ASA Classification ASA Score: ASA 4 Emergency Case?: No NPO Status NPO Status: NPO Clears >2 hours, Solids >8 hours Anesthesia Plan Resuscitation Status: Full Code Anesthesia Technique: MAC Anesthesia Airway Planned: Natural Airway Monitors Used: Standard Monitors Preoperative Comments:: Chemo currently infusing through port
[2024-03-17 09:52] VITALS: BMI 30.7
[2024-03-17] MEDS: Lidocaine 1% Pres-Free 5 ML VIAL (09:58)
[2024-03-17] MEDS: Duovisc Viscoelastic System EACH 1 EACH (09:59)
[2024-03-17] MEDS: Povidone-Iodine Ophth 30 ML BTL (10:00)
[2024-03-17] MEDS: Trypan Blue 0.06% 0.5 ML SYR (10:01)
[2024-03-17] MEDS: Balanced Salt Soln.-PLUS 500 ML BAG OP (10:01)
[2024-03-17] MEDS: Tetracaine 0.5% 4 ML BTL OD (10:02)
--- NOTE | 2024-03-17 10:25 | W.PM.DSUDISC ---
Date of service: 03/17/24 Time of Service: 10:25 Discharge Plan Disposition Patient Disposition: Home Discharge Details Attending Provider: Russell Styles Primary Care Provider: Harshal Godfrey Home Meds and New Rx's Prescriptions: No Action metoprolol succinate 100 mg tablet extended release 24 hr 200 mg PO DAILY clopidogrel [Plavix] 75 mg Tablet 75 mg PO DAILY Patient Comments: 03/17/24: pt reports she does not take magnesium oxide 400 mg magnesium Tablet 400 mg PO BID Eye Multivit (lutein-zeaxan) 540-04-95-2-5 mg Capsule 1 cap PO BID Eliquis 5 mg Tablet 5 mg PO BID Qty: 60 0RF vitamin B complex Tablet 1 tab PO DAILY pantoprazole 40 mg tablet,delayed release (DR/EC) 40 mg PO DAILY fluorouracil IV Discharge Instructions Stand Alone Forms: DSU Post-Op Cataract, Kishor Salazar (DSU) Discharge Orders Discharge Orders: Discharge Order (Routine); Ordered 03/17/24 Ordered By: Russell Styles DS: Diagnosis Discharge Diagnosis (1) Posterior subcapsular age-related cataract, right eye: Status: Resolved (2) Cortical age-related cataract, right eye: Status: Resolved
[2024-03-17 10:26] VITALS: BP 111/56; PULSE 67; RESP 16; TEMP 36.2; O2SAT 96
--- NOTE | 2024-03-17 10:27 | ROE_ITS ---
Date of service: 03/17/24 Time of Service: 10:27 Operative Note Operative Note DATE OF PROCEDURE: 03/17/24 PRE-OP DIAGNOSIS: Nuclear/cortical/posterior subcapsular cataract, right eye POST-OP DIAGNOSIS: same PROCEDURE: Cataract extraction using phacoemulsification with intraocular lens implant, right eye SURGEON: Russell Styles ANESTHESIA TYPE: Local By Surgeon and MAC Refer to Anesthesia Record ESTIMATED BLOOD LOSS: 0 PATHOLOGY: none sent COMPLICATIONS: None Patient was transported to: same day Patient's condition: stable Implants: Bahman Clareon [id number] Indications: Progressive decreased vision due to cataract, right eye Procedure Description: CATARACT SURGERY OPERATIVE REPORT PREOPERATIVE DIAGNOSIS: Nuclear/cortical/posterior subcapsular cataract, right eye POSTOPERATIVE DIAGNOSIS: Same OPERATION: Cataract extraction using phacoemulsification with posterior chamber intraocular lens implant, right eye. IOL: IOL Track Laying Equipment Operator/Model: Bahman Clareon [id number] IOL Power: + 23.0 diopters IOL Serial Number: [id number] Optic Diameter: 6.0mm Haptic/Overall Diameter: 13.0mm PHACO INFO: Bahman Omnidroneurion Vision System with OZil and Active Fluidics Cumulative Dispersed Energy (CDE): 9.3 to seconds SURGEON: Russell Styles MD, DRAKE ANESTHESIA: Monitored Anesthesia Care (MAC), with local sub-tenon's anesthetic infiltration COMPLICATIONS: None SPECIMENS: None INDICATIONS FOR PROCEDURE: The patient is a 74-year-old lady with history of diminished visual acuity in her right eye secondary to the development of nuclear/cortical/posterior subcapsular cataract. The option of cataract surgery was offered to the patient and she felt she was symptomatic enough that she wished to proceed. See office notes for detailed information. PROCEDURE: The correct surgical eye was identified and marked as the right eye and the pupil was dilated in the preoperative area using mydriatics and cycloplegics. The dilated pupil size was 6.0 mm. The patient elected to proceed without oral sedation. The patient was brought to the operating room where cardiopulmonary monitoring was instituted and surgical time-out was performed, confirming the correct operative eye and IOL power. Topical anesthesia was administered and ophthalmic povidone-iodine 5% was instilled into the conjunctival fornices. The aurora-ocular area was prepped with Betadine 10% solution and draped in the usual sterile fashion for intraocular surgery, including an aperture drape. A Tegaderm transparent film dressing was cut in half and used to cover the lashes and lid margins. Care was taken to sequester the lashes and lid margins under the Tegaderm dressing. A lid speculum was placed between the lids of the operative eye and the Bahman LuxOR Revalia operating microscope was maneuvered into position. Payton scissors were then used to make a conjunctival buttonhole approximately 6mm posterior to the limbus in the inferonasal quadrant. Blunt dissection was carried out to expose bare sclera, and a blunt-tipped sub-tenon?s anesthesia cannula was introduced and passed posteriorly along the globe where non- preserved plain lidocaine was injected into posterior sub-Tenon?s space. A sideport knife was used to make a paracentesis port. VisionBlue was injected into the anterior chamber and allowed to sit for 30 seconds. Intraocular phenylephrine/lidocaine was injected into the anterior chamber. The anterior chamber was then filled with viscoelastic. A keratome knife was used to construct a two--plane clear corneal tunnel extending 2.0mm into clear cornea. A flap was raised on the anterior capsule and capsulorhexis forceps were used to complete a continuous curvilinear capsulorhexis of 4.8 mm. Capsulorhexis was challenging due to constant violent eye movement. The patient could not fixate on the microscope light. Even with fixating the eye with forceps, capsulorhexis was quite challenging. Balanced salt solution was then used to perform cortical cleaving hydrodissection and nuclear hydrodelineation until the lens could be freely rotated within the capsular bag. The lens nucleus was then disassembled and removed within the capsular bag and iris plane using phacoemulsification. Residual cortical material was removed using the I/A handpiece. The posterior capsule was carefully polished to remove as much residual lens epithelial cells as safely possible. The capsular bag was then inflated and the anterior chamber deepened with cohesive viscoelastic. The lens implant described above was inserted into the capsular bag using the Bahman Autonome Injector. A Kuglen hook was used to dial the IOL into position. Residual viscoelastic was then removed first from posterior to the IOL, then from the anterior chamber using the I/A handpiece. The lens implant was noted to center nicely within the capsular bag. The incisions were stromally hydrated, and the anterior chamber was reformed using BSS. Then 0.5cc of moxifloxacin 1.0mg/ml were injected into the capsular bag and anterior chamber. The incisions were checked with a Weck spear and found to be secure. Several drops of ophthalmic povidone-iodine 5% were then applied to the eye followed by two drops of combination steroid/NSAID/antibiotic solution. The drapes were removed and a clear plastic protective eye shield was placed over the eye. The patient was then returned to Same Day Surgery in stable condition.
--- NOTE | 2024-03-17 10:41 | W.ANESPOSTOP ---
Postoperative Evaluation Date, Time and Location Date Performed: 03/17/24 Time Performed: 10:33 Patient Location: Day Surgery Unit Vital Signs Most Recent Imported Vital Signs: Most Recent Vital Signs Temp Pulse Resp BP Pulse Ox 36.2 C L 67 16 111/56 L 96 03/17/24 10:26 03/17/24 10:26 03/17/24 10:26 03/17/24 10:26 03/17/24 10:26 Pain Score Most Recent Pain Score: Most Recent Pain Score Pain Level 0 03/17/24 10:26 Assessment Mental Status: Awake (Alert & Oriented to Patient Baseline) Airway and Respiratory Function: Patent airway with normal (patient baseline) respiratory exam Cardiovascular Function: Hemodynamically Stable Hydration Status: Adequately Hydrated Nausea & Vomiting: No Nausea or Vomiting Pain: Pt. Denies Any Pain Peripheral Nerve Block: Patient did not receive a nerve block
== END 2024-03-17 10:46 | disposition home or self-care (01) ==
PROVIDERS: PCP Family Medicine; Visit Provider Ophthalmology
PROC: (CPT 66984; principal; 2024-03-17 09:45)
DX: H25.041 Posterior subcapsular polar age-related cataract, right eye (principal); H25.011 Cortical age-related cataract, right eye; E11.9 Type 2 diabetes mellitus without complications
CPT/HCPCS: 66984; 00123; V2632; J2003

== ENCOUNTER 2024-03-31 01:08 | Outpatient (RCR) | payer MEDICARE, SELFPAY ==
[2024-03-04 00:04] VITALS: BP 104/45; PULSE 82; RESP 18; TEMP 35.9
[2024-03-10] MEDS: Normal Saline Flush 10 ML SYR IVP (10:47)
[2024-03-10 10:55] LABS: Abs Immature Grans 0.12 10^3/uL (0.0-0.06); Absolute Basophil Count 0.11 10^3/uL (0.0-0.2); Absolute Eosinophil Count 0.14 10^3/uL (0.0-0.7); Absolute Monocyte Count 0.99 10^3/uL (0.1-0.8); Absolute Neutrophil Count 11.56 10^3/uL (1.2-6.7); Basophils % 0.8 %; HCT 35.9 % (36.0-46.0); HGB 11.2 g/dL (11.2-15.7); Immature Grans % 0.8 %; Lymphocytes % 9.8 %; MCH 29.9 pg (27.0-33.0); MCHC 31.2 % (32.0-36.0); MCV 96 fL (80-95); MPV 9.5 fL (8.0-11.0); Monocytes % 6.9 %; Neutrophils % 80.7 %; Platelet Count 223 10^3/uL (130-400); RBC 3.75 10^6/uL (3.93-5.22); RDW 19.7 % (11.7-14.6); RDW-SD 69.5 fL; WBC 14.33 10^3/uL (4.4-10.8)
[2024-03-10 11:19] LABS: ALT 25 U/L (14-59); AST 34 U/L (15-37); Albumin 3.3 g/dL (3.4-5.0); Alkaline Phosphatase 103 U/L (46-116); Anion Gap 10.4 mmol/L (3-11); BUN 28 mg/dL (7-18); Bilirubin, Total 0.5 mg/dL (0.2-1.0); CO2 27.6 mmol/L (21.0-32.0); CREATININE 1.7 mg/dL (0.55-1.02); Calcium 10.9 mg/dL (8.5-10.1); Chloride 101 mmol/L (98-107); Estimated GFR 31.47 (mL/min/1.73m2); Glucose 149 mg/dL (74-106); Potassium 4.4 mmol/L (3.5-5.1); Sodium 139 mmol/L (136-145); Total Protein 7.5 g/dL (6.4-8.2)
[2024-03-10 22:31] LABS: CA 19-9 678 U/mL (<35)
[2024-03-16] MEDS: Normal Saline Flush 10 ML SYR IVP (08:35)
[2024-03-16 12:53] LABS: ALT 30 U/L (14-59); AST 31 U/L (15-37); Albumin 3.1 g/dL (3.4-5.0); Alkaline Phosphatase 115 U/L (46-116); Anion Gap 13.1 mmol/L (3-11); BUN 30 mg/dL (7-18); Bilirubin, Total 0.4 mg/dL (0.2-1.0); CO2 25.9 mmol/L (21.0-32.0); CREATININE 1.7 mg/dL (0.55-1.02); Calcium 10.2 mg/dL (8.5-10.1); Chloride 100 mmol/L (98-107); Estimated GFR 31.47 (mL/min/1.73m2); Glucose 161 mg/dL (74-106); Potassium 4.2 mmol/L (3.5-5.1); Sodium 139 mmol/L (136-145); Total Protein 7.2 g/dL (6.4-8.2)
[2024-03-16 12:55] LABS: Absolute Basophil Count 0.08 10^3/uL (0.0-0.2); Absolute Lymphocyte Count 1.55 10^3/uL (1.2-3.4); Absolute Monocyte Count 1.01 10^3/uL (0.1-0.8); Absolute Neutrophil Count 7.87 10^3/uL (1.2-6.7); Basophils % 0.7 %; Eosinophils % 4.4 %; HCT 34.6 % (36.0-46.0); Immature Grans % 0.4 %; Lymphocytes % 14.1 %; MCHC 31.8 % (32.0-36.0); MCV 94 fL (80-95); MPV 9.7 fL (8.0-11.0); Monocytes % 9.2 %; Neutrophils % 71.2 %; Platelet Count 242 10^3/uL (130-400); RBC 3.67 10^6/uL (3.93-5.22); RDW 18.2 % (11.7-14.6); RDW-SD 63.7 fL; WBC 11.03 10^3/uL (4.4-10.8)
[2024-03-16 12:56] LABS: Abs Immature Grans 0.04 10^3/uL (0.0-0.06); Absolute Eosinophil Count 0.48 10^3/uL (0.0-0.7)
[2024-03-17 09:46] LABS: CA 19-9 685 U/mL (<35)
[2024-03-31] MEDS: Normal Saline Flush 10 ML SYR IVP (10:56)
[2024-03-31 11:06] LABS: Abs Immature Grans 0.03 10^3/uL (0.0-0.06); Absolute Basophil Count 0.04 10^3/uL (0.0-0.2); Absolute Lymphocyte Count 1.03 10^3/uL (1.2-3.4); Absolute Monocyte Count 0.55 10^3/uL (0.1-0.8); Absolute Neutrophil Count 4.36 10^3/uL (1.2-6.7); Basophils % 0.6 %; Eosinophils % 3.2 %; HGB 9.1 g/dL (11.2-15.7); Immature Grans % 0.5 %; Lymphocytes % 16.6 %; MCH 30.3 pg (27.0-33.0); MCHC 31.4 % (32.0-36.0); MCV 97 fL (80-95); MPV 9.9 fL (8.0-11.0); Monocytes % 8.9 %; Neutrophils % 70.2 %; Platelet Count 170 10^3/uL (130-400); RDW 18.7 % (11.7-14.6); RDW-SD 65.5 fL; WBC 6.21 10^3/uL (4.4-10.8)
[2024-03-31 11:22] LABS: ALT 19 U/L (14-59); AST 17 U/L (15-37); Albumin 2.9 g/dL (3.4-5.0); Alkaline Phosphatase 100 U/L (46-116); Anion Gap 10.4 mmol/L (3-11); BUN 21 mg/dL (7-18); Bilirubin, Total 0.32 mg/dL (0.2-1.0); CO2 22.6 mmol/L (21.0-32.0); CREATININE 1.5 mg/dL (0.55-1.02); Calcium 8.9 mg/dL (8.5-10.1); Chloride 106 mmol/L (98-107); Estimated GFR 36.57 (mL/min/1.73m2); Glucose 151 mg/dL (74-106); Sodium 139 mmol/L (136-145); Total Protein 6.4 g/dL (6.4-8.2)
[2024-03-31 22:57] LABS: CA 19-9 597 U/mL (<35)
== END 2024-04-02 23:59 | disposition home or self-care (01) ==
LOC: INF 01:08
PROVIDERS: Internal Medicine Hematology & Oncology; Visit Provider Nurse Practitioner Family
DX: C22.1 Intrahepatic bile duct carcinoma (principal); Z45.2 Encounter for adjustment and management of vascular access device
CPT/HCPCS: 36591; 80053; 85025; 86301

== ENCOUNTER 2024-04-21 00:54 | Outpatient (RCR) | payer MEDICARE, SELFPAY ==
[2024-04-03 00:15] VITALS: BP 104/45; PULSE 82; RESP 18; TEMP 35.9
[2024-04-21 08:57] LABS: Abs Immature Grans 0.08 10^3/uL (0.0-0.06); Absolute Basophil Count 0.06 10^3/uL (0.0-0.2); Absolute Eosinophil Count 0.25 10^3/uL (0.0-0.7); Absolute Monocyte Count 1.25 10^3/uL (0.1-0.8); Absolute Neutrophil Count 7.94 10^3/uL (1.2-6.7); Basophils % 0.5 %; Eosinophils % 2.3 %; HCT 28.2 % (36.0-46.0); HGB 8.7 g/dL (11.2-15.7); Immature Grans % 0.7 %; Lymphocytes % 13.5 %; MCH 30.7 pg (27.0-33.0); MCHC 30.9 % (32.0-36.0); MCV 100 fL (80-95); MPV 9.5 fL (8.0-11.0); Monocytes % 11.3 %; Neutrophils % 71.7 %; Platelet Count 206 10^3/uL (130-400); RBC 2.83 10^6/uL (3.93-5.22); RDW 18.7 % (11.7-14.6); WBC 11.08 10^3/uL (4.4-10.8)
[2024-04-21] MEDS: Normal Saline Flush 10 ML SYR IVP (09:03)
[2024-04-21 09:13] LABS: ALT 18 U/L (14-59); AST 15 U/L (15-37); Albumin 2.9 g/dL (3.4-5.0); Alkaline Phosphatase 108 U/L (46-116); Anion Gap 12.2 mmol/L (3-11); BUN 29 mg/dL (7-18); Bilirubin, Total 0.24 mg/dL (0.2-1.0); CO2 23.8 mmol/L (21.0-32.0); CREATININE 1.8 mg/dL (0.55-1.02); Calcium 8.9 mg/dL (8.5-10.1); Chloride 103 mmol/L (98-107); Estimated GFR 29.38 (mL/min/1.73m2); Glucose 163 mg/dL (74-106); Potassium 3.9 mmol/L (3.5-5.1); Sodium 139 mmol/L (136-145); Total Protein 6.5 g/dL (6.4-8.2)
[2024-04-21 22:08] LABS: CA 19-9 600 U/mL (<35)
== END 2024-05-03 23:59 | disposition home or self-care (01) ==
LOC: INF 00:54
PROVIDERS: PCP Family Medicine; Visit Provider Nurse Practitioner Family
DX: C22.1 Intrahepatic bile duct carcinoma (principal); Z45.2 Encounter for adjustment and management of vascular access device
CPT/HCPCS: 36591; 80053; 85025; 86301

== ENCOUNTER 2024-06-02 01:03 | Outpatient (RCR) | payer MEDICARE, SELFPAY ==
[2024-05-04 00:29] VITALS: BP 104/45; PULSE 82; RESP 18; TEMP 35.9
[2024-05-12] MEDS: Normal Saline Flush 10 ML SYR IVP (12:09)
[2024-05-12 12:23] LABS: Absolute Basophil Count 0.08 10^3/uL (0.0-0.2); Absolute Eosinophil Count 0.34 10^3/uL (0.0-0.7); Absolute Lymphocyte Count 1.32 10^3/uL (1.2-3.4); Absolute Monocyte Count 1.29 10^3/uL (0.1-0.8); Basophils % 0.6 %; Eosinophils % 2.5 %; HCT 31.7 % (36.0-46.0); HGB 9.6 g/dL (11.2-15.7); Immature Grans % 0.7 %; Lymphocytes % 9.6 %; MCH 30.4 pg (27.0-33.0); MCHC 30.3 % (32.0-36.0); MCV 100 fL (80-95); MPV 9.6 fL (8.0-11.0); Monocytes % 9.4 %; Neutrophils % 77.2 %; Platelet Count 231 10^3/uL (130-400); RBC 3.16 10^6/uL (3.93-5.22); RDW 18.2 % (11.7-14.6); RDW-SD 67.2 fL
[2024-05-12 12:24] LABS: Absolute Neutrophil Count 10.58 10^3/uL (1.2-6.7)
[2024-05-12 12:41] LABS: ALT 17 U/L (14-59); AST 19 U/L (15-37); Albumin 3.1 g/dL (3.4-5.0); Alkaline Phosphatase 110 U/L (46-116); Anion Gap 7.9 mmol/L (3-11); BUN 24 mg/dL (7-18); Bilirubin, Total 0.36 mg/dL (0.2-1.0); CO2 28.1 mmol/L (21.0-32.0); CREATININE 1.9 mg/dL (0.55-1.02); Calcium 9.5 mg/dL (8.5-10.1); Chloride 102 mmol/L (98-107); Estimated GFR 27.54 (mL/min/1.73m2); Glucose 185 mg/dL (74-106); Potassium 3.9 mmol/L (3.5-5.1); Sodium 138 mmol/L (136-145)
[2024-05-15 11:11] LABS: CA 19-9 633 U/mL (<35)
[2024-06-02] MEDS: Normal Saline Flush 10 ML SYR IVP (07:10)
[2024-06-02 07:38] LABS: HCT 29.2 % (36.0-46.0); HGB 9.2 g/dL (11.2-15.7); MCH 30.5 pg (27.0-33.0); MCHC 31.5 % (32.0-36.0); MCV 97 fL (80-95); MPV 9.8 fL (8.0-11.0); Platelet Count 290 10^3/uL (130-400); RBC 3.02 10^6/uL (3.93-5.22); RDW 18.6 % (11.7-14.6); RDW-SD 66.3 fL
[2024-06-02 07:55] LABS: ALT 14 U/L (14-59); AST 17 U/L (15-37); Albumin 2.5 g/dL (3.4-5.0); Alkaline Phosphatase 137 U/L (46-116); Anion Gap 15.8 mmol/L (3-11); BUN 31 mg/dL (7-18); CO2 18.2 mmol/L (21.0-32.0); CREATININE 1.9 mg/dL (0.55-1.02); Calcium 9.3 mg/dL (8.5-10.1); Chloride 99 mmol/L (98-107); Estimated GFR 27.54 (mL/min/1.73m2); Glucose 181 mg/dL (74-106); Potassium 3.2 mmol/L (3.5-5.1); Sodium 133 mmol/L (136-145); Total Protein 6.6 g/dL (6.4-8.2)
[2024-06-02 08:21] LABS: WBC 34.44 10^3/uL (4.4-10.8)
[2024-06-02 08:22] LABS: Absolute Lymphocyte Count 1.72 10^3/uL (1.2-3.4); Absolute Monocyte Count 0.69 10^3/uL (0.1-0.8); Absolute Neutrophil Count 31.34 10^3/uL (1.2-6.7); Bands % 4 %; Diff Comment Manual Differential; RBC Morphology Normal
[2024-06-02 08:23] LABS: Metamyelocytes % 2
[2024-06-02 19:59] LABS: CA 19-9 607 U/mL (<35)
== END 2024-06-03 23:59 | disposition home or self-care (01) ==
LOC: INF 01:03
PROVIDERS: PCP Family Medicine; Visit Provider Nurse Practitioner Family
DX: C22.1 Intrahepatic bile duct carcinoma (principal)
CPT/HCPCS: 36591; 80053; 85025; 86301

== ENCOUNTER 2024-06-23 10:13 | Inpatient (IN) | payer MEDICARE, SELFPAY ==
[2024-06-23] VITALS (112 sets, daily range): BP systolic 37–170; BP diastolic 14–100; PULSE 42–101; RESP 8–25; TEMP 36.3–36.9; O2SAT 94–100
--- NOTE | 2024-06-23 10:15 | RT.EKG_ITS ---
APPROVED REPORT Exam: Resting ECG Reason for Exam: Dizziness Patient Location: E HR:81 bpm ECG Measurements Heart Rate 81 AXIS OK 165 P -48 QRSd 154 QRS 99 QT 425 T 27 QTc 494 Conclusion Ectopic atrial rhythm...abnormal P axis, normal rate RBBB and LPFB...QRSd >120mS, axis(90,210) Ectopic atrial rhythm at a rate of 81. Right axis. Mild ST segment elevation in lead III. Right bu ndle branch block with left posterior fascicular block. No acute injury pattern. Rate improved comp ared to prior dated last year. No acute injury pattern.
--- NOTE | 2024-06-23 10:30 | ED.GENADUL_ITS ---
Discharge Plan Disposition Patient Disposition: Admit to [facility] Condition: Good Discharge Details Chief Complaint: Abd Prob Clinical Impression: Anemia, Mass of colon, Hypotension, VAISHNAVI (acute kidney injury) Admit Date/Time: 06/23/24 14:06 Admit Provider: Redd Logan Attending Provider: Redd Logan Primary Care Provider: Harshal Godfrey ED Provider: Magno Mclean Discharge Instructions Activity:: Activity as Tolerated Equipment/Supplies:: No Equipment Needed Diet:: As Tolerated Discharge Orders Discharge Orders: Discharge Order (Routine); Ordered 06/24/24 Ordered By: Redd Logan Discharge Data Discharge Date/Time-TO BE ENTERED AT DEPARTURE: 06/23/24 16:12 HPI General Date/Time Provider Initiated Documentation: 06/23/24 10:28 . HPI Narrative: MDM This is a hypotensive normothermic and nontachycardic 74-year-old female with left flank pain and chemotherapy concern for possible sepsis for which she will receive lactate broad-spectrum antibiotics follow blood cultures and norepinephrine given maps below 65. No pain out of proportion to suggest necrotizing soft tissue infection. Patient does have left lower quadrant tenderness and is anticoagulated concerning for the possibility of retroperitoneal hemorrhage given she fell several weeks ago so we will obtain CT abdomen pelvis. Will treat with cefepime and vancomycin. No chest pain to suggest ACS however will obtain a troponin based on gender. Diverticulitis and colitis is certainly a possibility. Will obtain urinalysis and chest x-ray. Not a vasculopath so my suspicion for splenic arterial aneurysm is low. Based on age and lack of sudden onset pain my suspicion is low for ovarian torsion so I do not feel that the patient required a transvaginal ultrasound. No black nor bloody stools to suggest GI bleed. I considered PE however the patient has an VAISHNAVI and is anticoagulated. Given her low hemoglobin we will defer additional anticoagulation at this point in time. Ureterolithiasis is certainly also in the differential given left lower quadrant pain. 11:30 AM Comprehensive metabolic panel showing mild hyperglycemia and normal anion gap normal bicarbonate??not consistent with DKA. Normal LFTs. Normal lipase?/not consistent with pancreatitis. Age-adjusted negative D-dimer. CBC shows mild leukopenia and mild improved normocytic anemia. Patient also has lymphopenia. No thrombocytosis. No thrombocytopenia. Reassuring initial troponin at 8 ng/L. 12:30 PM Repeat troponin with delta of 2 ng/L very reassuring. 1:30 PM Chest x-ray with mild volume overload. No acute infiltrate. On CT abdomen pelvis patient has a mass at the lower descending colon with extension into the soft tissues and adjacent matting of small bowel loops. This certainly could be the cause of her abdominal pain. She is receiving 2 units of blood. Her urinalysis is nitrite leukoesterase negative not consistent with UTI. Will reach out to the hospitalist team with request for hospitalization. 2:15 PM I was in touch with Dr. Logan from the hospitalist team who graciously agreed to accept the patient for hospitalization. Chronic conditions affecting the care of the patient: Diabetes hypertension atrial fibrillation cholangiocarcinoma. History obtained from an outside historian: Report from cancer center [place] [facility] [place] Diagnostic interpretations performed by me: Per my independent interpretation chest x-ray shows: Per my independent interpretation EKG shows: Ectopic atrial rhythm at a rate of 81. Right axis. Mild ST segment elevation in lead III. Right bundle branch block with left posterior fascicular block. No acute injury pattern. Rate improved compared to prior dated last year. No acute injury pattern. ]Medications: Norepinephrine cefepime vancomycin Social determinants of health affecting disposition: N/A Management discussed with: Hospitalist Treatment/interventions considered: N/A Response to therapies provided: Improved symptoms in the ED HPI This is a 74-year-old female arrived emergency department with her daughter with a history of cholangiocarcinoma and the emergency department in the setting of weakness. Patient reportedly had COVID approximately 4 weeks ago. She has been eating poorly and feels as if she has thrush. She has pain when swallowing and also has some nausea and vomiting. She has unintentionally lost weight. She has had some diarrhea. She has had some difficulty swallowing and she reports constipation. She endorses left lower quadrant pain she fell several weeks ago. She denies fevers black or bloody stools. She has been nauseous and she has been vomiting. She denies dysuria frequency. She does have a cough and she is feeling short of breath. Exam General: Frail-appearing in no acute distress speaking in complete sentences. Head: Normocephalic, atraumatic. Eye: Extraocular eye movements intact. No conjunctival injection. No scleral icterus. Ear, nose, mouth, throat: Grossly normal inspection. Normal voice, handling secretions normally. No signs of oral thrush. Neck: Trachea midline. Cardiovascular: Well-perfused distal extremities. Regular rate and rhythm Respiratory: Nonlabored respiration. Clear lungs bilaterally Gastrointestinal: Nondistended abdomen. Left lower quadrant tenderness. No rebound. No guarding. Rectal: With patient's nurse Bon and daughter present in the room I completed a rectal exam. Patient had no gross blood. No melena. Musculoskeletal: No edema. Moving all 4 extremities spontaneously. Skin: Normal for age and race, grossly normal temperature and turgor. No acute rash. Neurologic: Alert and appropriate, no apparent acute deficits. Psychiatric: Mood and manner are appropriate. Grooming and personal hygiene are appropriate. Related Data Home Medications ?Medication ?Instructions ?Recorded ?Confirmed magnesium oxide 400 mg PO BID 02/01/23 06/23/24 vit C 250 mg-E 90 mg-zinc 40 1 cap PO BID 02/01/23 06/23/24 mg-copper 2 mg-lutein 5 mg-zeaxan capsule (Eye Multivitamin (lutein-zeaxan)) apixaban 5 mg tablet (Eliquis) 5 mg PO BID #60 tabs 02/04/23 06/23/24 metoprolol succinate 100 mg 200 mg PO DAILY 02/18/23 06/23/24 tablet,extended release 24 hr pantoprazole 40 mg tablet,delayed 40 mg PO DAILY 03/14/24 06/23/24 release vitamin B complex 1 tab PO DAILY 03/14/24 06/23/24 fluorouracil IV Chemotherapy 03/17/24 Previous Rx's ?Medication ?Instructions ?Recorded apixaban 5 mg tablet (Eliquis) 5 mg PO BID #60 tabs 02/04/23 Allergies Allergy/AdvReac Type Severity Reaction Status Date / Time No Known Allergies Allergy Verified 06/23/24 10:26 General Stated Complaint: Abd Prob FRANCHESCA: 2 Course Vital Signs Vital signs: Vital Signs Temperature 36.5 C 06/23/24 10:18 Pulse 89 06/23/24 10:18 Respiratory Rate 06/23/24 10:18 Blood Pressure 81/21 L 06/23/24 10:18 Pulse Oximetry 100 06/23/24 10:18 Temperature 36.5 C 06/23/24 10:25 Temperature Source Oral 06/23/24 10:25 Pulse 89 06/23/24 10:25 Respiratory Rate 06/23/24 10:25 Respiratory Effort Normal 06/23/24 10:24 Blood Pressure 81/21 L 06/23/24 10:25 Blood Pressure Position Sitting 06/23/24 10:25 Pulse Oximetry 100 06/23/24 10:25 Oxygen Delivery Method Room Air 06/23/24 10:25 Oxygen Flow Rate 0 06/23/24 10:25 Pain Level 3 06/23/24 10:25 Medical Decision Making Quality:SDOH Health Related Social Needs: No Data to Display Critical Care Time Critical Care Time Critical Care Time: Yes Total Critical Care Time: 60 Attestation: Hypotension hypovolemic shock PFSH All Active Problems (Updated 06/23/24 @ 14:14 by Redd Logan MD) 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) Hypovolemic shock (Acute) VAISHNAVI (acute kidney injury) (Acute) Hypotension (Acute) Mass of colon (Acute) Anemia (Chronic) Cardiomyopathy (Acute) Diabetes mellitus (Chronic) Coronary artery disease (Chronic) Liver cancer (Acute) Atrial fibrillation (Chronic) Pneumonia (Acute) Medical History Strangulated hernia of abdominal wall PAF (paroxysmal atrial fibrillation) Surgical History S/P small bowel resection S/P tubal ligation S/P APOLINAR-BSO History of cholecystectomy S/P aortic valve replacement (~03/2022) S/P CABG x 3 (~03/2022) Social History Smoking/Tobacco Use Status: Former Tobacco Use Quit Date: 10/04/10 Smoking risk assessment performed?: Yes Alcohol Intake: former Drug use: Never Substance use type: does not use Details: 03/16/24: took CBD gummies to help with sleep Housing: house Do you feel safe at home: Yes Do you feel safe in your relationship?: Yes
--- NOTE | 2024-06-23 10:30 | DI.CT_ITS ---
Exam(s) CT ABDOMEN PELVIS WO EXAM: CT ABDOMEN PELVIS WO CLINICAL HISTORY: Left flank pain. TECHNIQUE: Imaging Protocol: Axial computed tomography images with coronal and sagittal reformatted images were created and reviewed. Oral:/ no COMPARISON: CT CT CHEST PE CTA from 02/01/2023 FINDINGS: Lung Bases: No acute findings. Status post CABG. Mitral annulus heavily calcified. Liver: Evaluation limited due to lack of contrast. High-density material again noted in the anterior left lobe of the liver. The amount of high-density has increased when compared with the prior chest CT. Additional area in the posterior right lobe also containing high-density material. The finding s may represent treated liver masses. Patient has history of cholangiocarcinoma. Gallbladder and biliary tract: No radiodense calculus or biliary dilation. Pancreas: Normal density. No abnormal calcifications or inflammatory process. Spleen: Normal. Kidneys: Normal size, contour and axis. No radiodense stones. No obstructive uropathy. Right renal cysts. No suspicious masses seen. Adrenal glands: Enlarged bilaterally, unchanged. Lymph nodes: Iron adenopathy noted level of the celiac axis measuring 3.2 x 2.2 cm. Other smaller no padmini seen anterior to the pancreatic head. Vasculature: Abdominal aorta non-dilated. Severe atherosclerotic changes. Both iliac arteries appea r occluded proximally. Soft tissues: Midline surgical scar. Small fatty containing upper abdominal wall midline hernia. On right lower quadrant hernia containing nonobstructed loop of small bowel. Bladder: No wall thickening. No mass or calculi. Bowel: Right-sided distal small bowel anastomosis is unremarkable. Diverticulosis of the descending and sigmoid colon. Area of wall thickening without significant surrounding inflammation in the lower descending colon could represent a mass. There is adjacent density which could indicate extension i nto the surrounding tissues. Area of adjacent small bowel loops appear matted. Retained stool in re ctum. Elsewhere normal quantity of stool. Peritoneal cavity: Small foci of omental caking seen anterior to stomach. Additional small focus of omental caking seen anteriorly in the right lower quadrant. No ascites. No mesenteric inflammatory response. Reproductive organs: Status post hysterectomy. Bones: Sternal wires. Suspicious lytic lesion in the left superior pubis. Other suspicious lesion s een in the left ilium, right sacrum. Other smaller scattered lytic lesions are noted. IMPRESSION: Apparent mass at the lower descending colon with extension into the soft tissues and adjacent mattin g of small bowel loops. Areas of omental caking noted. Adenopathy noted in the upper abdomen. Lytic lesions in the bones of the pelvis. High-density lesions in the liver appear calcified. This could represent treated liver masses versus calcific metastases. Clinical correlation recommended. Findings called to Dr. Mclean of the emergency department. RADIATION DOSE DELIVERED: 384.26mGy.cm Total DLP DATA REPOSITORY: All CT scans at this facility are submitted to the National Radiology Data Registry (NRDR) Dose Index Registry (DIR) with the [employer] ([employer]). RADIATION OPTIMIZATION: All CT scans at this facility use at least one of these dose optimization te chniques: automated exposure control; mA and/or kV adjustment per patient size (includes targeted exa ms where dose is matched to clinical indication); or iterative reconstruction.
[2024-06-23] MEDS: Normal Saline 1,000 ML 1000 ML IV (10:40)
[2024-06-23] MEDS: CEFEPIME 2 GM in Normal Saline 100 ML IVPB (10:45)
[2024-06-23 10:56] LABS: Abs Immature Grans 0.05 10^3/uL (0.0-0.06); HCT 22.9 % (36.0-46.0); MCH 29.4 pg (27.0-33.0); MCHC 30.6 % (32.0-36.0); MCV 96 fL (80-95); MPV 10.4 fL (8.0-11.0); Platelet Count 219 10^3/uL (130-400); RBC 2.38 10^6/uL (3.93-5.22); RDW 19.2 % (11.7-14.6); RDW-SD 66.1 fL; WBC 7.28 10^3/uL (4.4-10.8)
[2024-06-23 11:07] LABS: Lactate 1.8 mmol/L (0.6-1.4)
[2024-06-23 11:12] LABS: ALT 14 U/L (14-59); AST 12 U/L (15-37); Albumin 2.1 g/dL (3.4-5.0); Alkaline Phosphatase 139 U/L (46-116); Anion Gap 13.6 mmol/L (3-11); BUN 34 mg/dL (7-18); Bilirubin, Total 0.32 mg/dL (0.2-1.0); CO2 20.4 mmol/L (21.0-32.0); CREATININE 2.3 mg/dL (0.55-1.02); Calcium 9.2 mg/dL (8.5-10.1); Chloride 102 mmol/L (98-107); Glucose 107 mg/dL (74-106); Potassium 3.3 mmol/L (3.5-5.1); Sodium 136 mmol/L (136-145); Total Protein 5.9 g/dL (6.4-8.2); Troponin I 16 ng/L (<or=51)
[2024-06-23 11:29] LABS: Absolute Basophil Count 0.07 10^3/uL (0.0-0.2); Absolute Eosinophil Count 0.15 10^3/uL (0.0-0.7); Absolute Lymphocyte Count 0.87 10^3/uL (1.2-3.4); Absolute Monocyte Count 1.82 10^3/uL (0.1-0.8); Absolute Neutrophil Count 4.37 10^3/uL (1.2-6.7); Bands % 7 %; Diff Comment Manual Differential
[2024-06-23 11:30] LABS: Hypochromasia 2+
[2024-06-23] MEDS: Norepinephrine in D5W 8 MG/250 ML BAG 56.25 MG IV (11:30)
[2024-06-23] MEDS: VANCOMYCIN 1,300 MG in Normal Saline 500 ML 333.3333 MG IVPB (12:01)
--- NOTE | 2024-06-23 12:15 | RT.EKG_ITS ---
APPROVED REPORT Exam: Resting ECG Reason for Exam: EKG changes Patient Location: E HR:107 bpm ECG Measurements Heart Rate 107 AXIS NV 140 P 0 QRSd 145 QRS 114 QT 374 T -7 QTc 473 Conclusion Sinus rhythm...normal P axis, V-rate 60- 99 Atrial premature complexes...SV complexes w/ short R-R intvls RBBB and LPFB...QRSd >120mS, axis(90,210) Borderline ST depression, lateral leads...ST <-0.07mV, I aVL V5 V6 Rate controlled atrial fibrillation at a rate of 107.More pronounced left lateral chest wall ST segme nt depressions. Right bundle branch block left posterior fascicular block. No acute injury pattern.
[2024-06-23 12:28] LABS: Troponin I 18 ng/L (<or=51)
--- NOTE | 2024-06-23 12:43 | DI.RAD_ITS ---
Exam(s) XR PORTABLE CHEST AP EXAM: XR PORTABLE CHEST AP CLINICAL HISTORY: Sepsis TECHNIQUE: 2D digital imaging was performed. COMPARISON: CT CT CHEST PE CTA from 02/01/[address] ABDOMEN PELVIS WO from 06/23/2024 FINDINGS: LUNGS: Increased interstitial markings and peribronchial thickening. No pleural abnormality seen. HEART: Enlarged. Mitral annulus heavily calcified. Status post CABG. Pulmonary vasculature: Prominent AORTA: Normal diameter. BONES: Unremarkable degenerative changes. Soft tissues: Unremarkable. IMPRESSION: Findings consistent with mild CHF. No focal infiltrate. DATA REPOSITORY: RADIATION DOSE DELIVERED:
[2024-06-23 13:18] LABS: Bilirubin Negative (Negative); Blood Negative (Negative); Clarity Clear (Clear); Glucose Negative (Negative); Ketones Negative (Negative); Leukocyte Esterase Negative (Negative); Nitrite Negative (Negative); Specific Gravity 1.015 (1.005-1.025); Urobilinogen 0.2 mg/dL (Up to 0.2); pH 5.5 (5-8)
[2024-06-23 13:26] LABS: Bacteria Rare HPF (Negative); C & S Indicated? No; Crystals Negative HPF (Negative); Epithelial Cells Rare HPF (Negative); Mucus Trace (Negative); RBC 0-2 HPF (0-2); WBC 0-2 HPF (0-5)
--- NOTE | 2024-06-23 14:06 | HPE_ITS ---
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 -Hemoglobin was 7 in the emergency department patient was also hypotensive with mean arterial pressure less than 65 -Ordered for 2 units of packed red blood cells in the emergency department, will follow-up posttransfusion H&H -Given hypotension, started Levophed, will titrate for goal mean arterial pressure greater than 65 (2) Anemia: Status: Chronic Assessment and plan: - Likely secondary to metastatic cholangiocarcinoma as noted above -Baseline hemoglobin in the low nines -Was 7 in the emergency department -Will follow-up posttransfusion H&H as noted above (3) 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 intake, unintentional weight loss as well as anemia and hypovolemic shock as noted above -Recommend close follow-up with [facility] [place] [place] oncology at discharge (4) Atrial fibrillation: Status: Chronic Assessment and plan: - Currently rate controlled, normally on Eliquis twice daily and 200 mg metoprolol daily -Will continue, as patient's anemia does not appear to be due to blood loss (5) VAISHNAVI (acute kidney injury): Status: Acute Assessment and plan: - Baseline creatinine 1.5, was 2.2 in the emergency department -Likely secondary to hypovolemic shock and anemia -Will follow-up a.m. BMP History of Present Illness History of Present Illness Chief Complaint: weakness Narrative: 74-year-old female with past medical history COVID-positive 4 weeks ago, NIDDM, hypertension, A-fib on Eliquis, and cholangiole sarcoma who presented to the emergency department complaints of weakness. Since having COVID about 4 weeks ago patient states that she has become progressively weaker and has been eating poorly and believes that she may have thrush given that she has been having pain with swallowing as well as some nausea and vomiting and unintentional weight loss and nonbloody diarrhea. Does states that she has had a left lower quadrant pain and after having a fall several weeks ago but she denies any black or bloody stool, denies any lightheadedness, dizziness, chest pain, dysuria or urinary frequency. In the emergency department the patient was noted as having an initial blood pressure of 81/21, pulse in the mid 60s, oxygen saturation in the mid 90s on room air, and was afebrile. CBC showed normal white blood cells but hemoglobin of 7 which is decreased from recent baseline in the mid 9's. Given abdominal pain, lipase was checked which was negative, abdominal CT showed mass of the lower descending colon with extension into the soft tissues adjacent matting of small bowel loops with omental caking adenopathy of the upper abdomen lytic bone lesions and high density lesions in the liver that appear to be calcifications or treated liver masses versus metastasis but no signs of obstruction or hemorrhage. Additionally, chest x-ray showed increased interstitial markings with peribronchial thickening being consistent with mild CHF with no focal infiltrate. Given the patient's hemoglobin was 7 and she was hypotensive 2 units of packed red blood cells were ordered in the emergency department the patient was started on norepinephrine in order to provide pressor support. At which time emergency room physician paged hospitalist for admission for patient with hypovolemic shock likely due to progressive chronic anemia in the setting of cholangiole sarcoma. 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) Hypovolemic shock (Acute) VAISHNAVI (acute kidney injury) (Acute) Hypotension (Acute) Mass of colon (Acute) Anemia (Chronic) Cardiomyopathy (Acute) Diabetes mellitus (Chronic) Coronary artery disease (Chronic) Liver cancer (Acute) Atrial fibrillation (Chronic) Pneumonia (Acute) Medical History Strangulated hernia of abdominal wall PAF (paroxysmal atrial fibrillation) Surgical History S/P small bowel resection S/P tubal ligation S/P APOLINAR-BSO History of cholecystectomy S/P aortic valve replacement (~03/2022) S/P CABG x 3 (~03/2022) Social History Smoking/Tobacco Use Status: Former Tobacco Use Quit Date: 10/04/10 Smoking risk assessment performed?: Yes Alcohol Intake: former Drug use: Never Substance use type: does not use Details: 03/16/24: took CBD gummies to help with sleep Housing: house Do you feel safe at home: Yes Do you feel safe in your relationship?: Yes Meds Allergies and Home Medications Allergies Allergy/AdvReac Type Severity Reaction Status Date / Time No Known Allergies Allergy Verified 06/23/24 10:26 Home Medications ?Medication ?Instructions ?Recorded ?Confirmed ?Type clopidogrel 75 mg tablet (Plavix) 75 mg PO DAILY 02/01/23 06/23/24 History magnesium oxide 400 mg PO BID 02/01/23 06/23/24 History vit C 250 mg-E 90 mg-zinc 40 1 cap PO BID 02/01/23 06/23/24 History mg-copper 2 mg-lutein 5 mg-zeaxan capsule (Eye Multivitamin (lutein-zeaxan)) apixaban 5 mg tablet (Eliquis) 5 mg PO BID #60 tabs 02/04/23 06/23/24 Rx metoprolol succinate 100 mg 200 mg PO DAILY 02/18/23 06/23/24 History tablet,extended release 24 hr pantoprazole 40 mg tablet,delayed 40 mg PO DAILY 03/14/24 06/23/24 History release vitamin B complex 1 tab PO DAILY 03/14/24 06/23/24 History fluorouracil IV Chemotherapy 03/17/24 History Exam Narrative Exam Narrative: Well-appearing elderly female sitting up on the edge of the bed in no acute distress, notes that color is returning to her face compared to being pale prior to arrival, ANO x 4, heart regular rhythm, lungs clear to auscultation bilaterally, abdomen soft, nontender, nondistended Results Labs 06/23/24 10:35 06/23/24 10:35 Labs: Laboratory Results - last 24 hr 06/23/24 06/23/24 06/23/24 10:35 10:51 12:08 WBC 7.28 RBC 2.38 L Hgb 7.0 L* Hct 22.9 L MCV 96 H MCH 29.4 MCHC 30.6 L RDW 19.2 H Plt Count 219 MPV 10.4 Immature Gran % See Differential Neutrophils % 53.0 Band Neutrophils % 7 Lymphocytes % 12.0 Monocytes % 25.0 Eosinophils % 2.0 Basophils % 1.0 Nucleated RBC % 0.0 Absolute Neutrophils 4.37 Absolute Lymphocytes 0.87 L Absolute Monocytes 1.82 H Absolute Eosinophils 0.15 Absolute Basophils 0.07 RBC Morphology See Below Hypochromasia 2+ VBG Lactate 1.8 H Sodium 136 Potassium 3.3 L Chloride 102 Carbon Dioxide 20.4 L Anion Gap 13.6 H BUN 34 H Creatinine 2.3 H Est GFR (CKD-EPI 2020) 21.90 Glucose 107 H Calcium 9.2 Total Bilirubin 0.32 AST 12 L ALT 14 Alkaline Phosphatase 139 H Troponin I 16 18 Total Protein 5.9 L Albumin 2.1 L Urine Color Urine Clarity Urine pH Ur Specific [place] Urine Protein Urine Ketones Urine Blood Urine Nitrite Urine Bilirubin Urine Urobilinogen Ur Leukocyte Esterase Urine RBC Urine WBC Ur Epithelial Cells Urine Crystals Urine Bacteria Urine Casts Urine Mucus Ur Culture Indicated? Urine Glucose ABO/Rh O Positive Antibody Screen NEGATIVE Crossmatch See Detail 06/23/24 12:59 WBC RBC Hgb Hct MCV MCH MCHC RDW Plt Count MPV Immature Gran % Neutrophils % Band Neutrophils % Lymphocytes % Monocytes % Eosinophils % Basophils % Nucleated RBC % Absolute Neutrophils Absolute Lymphocytes Absolute Monocytes Absolute Eosinophils Absolute Basophils RBC Morphology Hypochromasia VBG Lactate Sodium Potassium Chloride Carbon Dioxide Anion Gap BUN Creatinine Est GFR (CKD-EPI 2020) Glucose Calcium Total Bilirubin AST ALT Alkaline Phosphatase Troponin I Total Protein Albumin Urine Color Yellow Urine Clarity Clear Urine pH 5.5 Ur Specific [place] 1.015 Urine Protein 100 H Urine Ketones Negative Urine Blood Negative Urine Nitrite Negative Urine Bilirubin Negative Urine Urobilinogen 0.2 Ur Leukocyte Esterase Negative Urine RBC 0-2 Urine WBC 0-2 Ur Epithelial Cells Rare Urine Crystals Negative Urine Bacteria Rare Urine Casts Urine Mucus Trace Ur Culture Indicated? No Urine Glucose Negative ABO/Rh Antibody Screen Crossmatch Last Vital Signs Temp 98.2 F 06/23/24 13:31 Pulse 76 06/23/24 13:39 Resp 20 06/23/24 13:40 BP 132/43 L 06/23/24 13:39 Pulse Ox 97 06/23/24 13:40 Time Spent Time spent with Patient: >75 minutes Time was spent: preparing to see the patient(eg.review tests), obtaining and/or reviewing separately otained hiistory, ordering medications,tests, procedures, referring, communicating with other health palliative care specialist, indepentently interpreting results, counseling the patient and care coordination
[2024-06-23 14:17] LABS: Troponin I 22 ng/L (<or=51)
--- NOTE | 2024-06-23 15:54 | W.PCEDHO ---
Registration Status: Primary Language: Preferred Language: ED Information & Data Chief Complaint Abd Prob 06/23/24 10:31 Triage Note Pain in left side- did go 06/23/24 10:18 away but is now back- started 1 month ago- due for chemo today but did not receive due to abdominal concerns- feeling lightheaded- on and off due to low BP Medical / Surgical History (Last Reviewed 03/17/24 @ 09:39 by Russell Styles MD) Strangulated hernia of abdominal wall PAF (paroxysmal atrial fibrillation) (Last Reviewed 03/17/24 @ 09:39 by Russell Styles MD) S/P small bowel resection S/P tubal ligation S/P APOLINAR-BSO History of cholecystectomy S/P aortic valve replacement (~03/2022) S/P CABG x 3 (~03/2022) Most Recent Vital Signs Temperature 36.8 C 06/23/24 14:27 Temperature Source Oral 06/23/24 10:25 Pulse 77 06/23/24 14:27 Pulse 76 06/23/24 13:40 Respiratory Rate 20 06/23/24 14:27 Respiratory Effort Normal 06/23/24 10:24 Blood Pressure 150/49 H 06/23/24 14:27 Blood Pressure Mean 72 06/23/24 13:39 Blood Pressure Position Sitting 06/23/24 10:25 Pulse Oximetry 98 06/23/24 14:27 Oxygen Delivery Method Room Air 06/23/24 14:27 Oxygen Flow Rate 0 06/23/24 14:27 Pain Level 3 06/23/24 10:25 Allergies No Known Allergies Allergy (Verified 06/23/24 10:26) Precautions Isolation Standard precaution 06/23/24 10:24 Active Medications Generic Name Dose Route Start Last Admin Trade Name Freq PRN Reason Stop Dose Admin Norepinephrine Bitartrate 8 mg in 250 mls @ 56.25 mls/hr 06/23/24 11:30 06/23/24 13:42 IV 30 mcg/min INFUSION JUDY 56.25 mls/hr Titration Protocol 30 MCG/MIN IV IV Catheter Type [Proximal power port Port] Diagnostics 06/23/24 06/23/24 06/23/24 Range/Units 13:35 12:59 12:08 WBC (4.4-10.8) 10^3/uL RBC (3.93-5.22) 10^6/uL Hgb (11.2-15.7) g/dL Hct (36.0-46.0) % MCV (80-95) fL MCH (27.0-33.0) pg MCHC (32.0-36.0) % RDW (11.7-14.6) % Plt Count (130-400) 10^3/uL MPV (8.0-11.0) fL Immature Gran % Neutrophils % % Band Neutrophils % % Lymphocytes % % Monocytes % % Eosinophils % % Basophils % % Nucleated RBC % (0.0-0.3) % Absolute Neutrophils (1.2-6.7) 10^3/uL Absolute Lymphocytes (1.2-3.4) 10^3/uL Absolute Monocytes (0.1-0.8) 10^3/uL Absolute Eosinophils (0.0-0.7) 10^3/uL Absolute Basophils (0.0-0.2) 10^3/uL RBC Morphology Hypochromasia VBG Lactate (0.6-1.4) mmol/L Sodium (136-145) mmol/L Potassium (3.5-5.1) mmol/L Chloride (98-107) mmol/L Carbon Dioxide (21.0-32.0) mmol/L Anion Gap (3-11) mmol/L BUN (7-18) mg/dL Creatinine (0.55-1.02) mg/dL Est GFR (CKD-EPI 2020) (mL/min/1.73m2) Glucose (74-106) mg/dL Calcium (8.5-10.1) mg/dL Total Bilirubin (0.2-1.0) mg/dL AST (15-37) U/L ALT (14-59) U/L Alkaline Phosphatase (46-116) U/L Troponin I 22 18 (<or=51) ng/L Total Protein (6.4-8.2) g/dL Albumin (3.4-5.0) g/dL Urine Color Yellow (Yellow) Urine Clarity Clear (Clear) Urine pH 5.5 (5-8) Ur Specific [place] 1.015 (1.005-1.025) Urine Protein 100 H (Neg-Trace) mg/dL Urine Ketones Negative (Negative) mg/dL Urine Blood Negative (Negative) Urine Nitrite Negative (Negative) Urine Bilirubin Negative (Negative) Urine Urobilinogen 0.2 (Up to 0.2) mg/dL Ur Leukocyte Esterase Negative (Negative) Urine RBC 0-2 (0-2) HPF Urine WBC 0-2 (0-5) HPF Ur Epithelial Cells Rare (Negative) HPF Urine Crystals Negative (Negative) HPF Urine Bacteria Rare (Negative) HPF Urine Casts (Negative) LPF Urine Mucus Trace (Negative) Ur Culture Indicated? No Urine Glucose Negative (Negative) mg/dL ABO/Rh Antibody Screen Crossmatch 06/23/24 06/23/24 Range/Units 10:51 10:35 WBC 7.28 (4.4-10.8) 10^3/uL RBC 2.38 L (3.93-5.22) 10^6/uL Hgb 7.0 L* (11.2-15.7) g/dL Hct 22.9 L (36.0-46.0) % MCV 96 H (80-95) fL MCH 29.4 (27.0-33.0) pg MCHC 30.6 L (32.0-36.0) % RDW 19.2 H (11.7-14.6) % Plt Count 219 (130-400) 10^3/uL MPV 10.4 (8.0-11.0) fL Immature Gran % See Differential Neutrophils % 53.0 % Band Neutrophils % 7 % Lymphocytes % 12.0 % Monocytes % 25.0 % Eosinophils % 2.0 % Basophils % 1.0 % Nucleated RBC % 0.0 (0.0-0.3) % Absolute Neutrophils 4.37 (1.2-6.7) 10^3/uL Absolute Lymphocytes 0.87 L (1.2-3.4) 10^3/uL Absolute Monocytes 1.82 H (0.1-0.8) 10^3/uL Absolute Eosinophils 0.15 (0.0-0.7) 10^3/uL Absolute Basophils 0.07 (0.0-0.2) 10^3/uL RBC Morphology See Below Hypochromasia 2+ VBG Lactate 1.8 H (0.6-1.4) mmol/L Sodium 136 (136-145) mmol/L Potassium 3.3 L (3.5-5.1) mmol/L Chloride 102 (98-107) mmol/L Carbon Dioxide 20.4 L (21.0-32.0) mmol/L Anion Gap 13.6 H (3-11) mmol/L BUN 34 H (7-18) mg/dL Creatinine 2.3 H (0.55-1.02) mg/dL Est GFR (CKD-EPI 2020) 21.90 (mL/min/1.73m2) Glucose 107 H (74-106) mg/dL Calcium 9.2 (8.5-10.1) mg/dL Total Bilirubin 0.32 (0.2-1.0) mg/dL AST 12 L (15-37) U/L ALT 14 (14-59) U/L Alkaline Phosphatase 139 H (46-116) U/L Troponin I 16 (<or=51) ng/L Total Protein 5.9 L (6.4-8.2) g/dL Albumin 2.1 L (3.4-5.0) g/dL Urine Color (Yellow) Urine Clarity (Clear) Urine pH (5-8) Ur Specific [place] (1.005-1.025) Urine Protein (Neg-Trace) mg/dL Urine Ketones (Negative) mg/dL Urine Blood (Negative) Urine Nitrite (Negative) Urine Bilirubin (Negative) Urine Urobilinogen (Up to 0.2) mg/dL Ur Leukocyte Esterase (Negative) Urine RBC (0-2) HPF Urine WBC (0-5) HPF Ur Epithelial Cells (Negative) HPF Urine Crystals (Negative) HPF Urine Bacteria (Negative) HPF Urine Casts (Negative) LPF Urine Mucus (Negative) Ur Culture Indicated? Urine Glucose (Negative) mg/dL ABO/Rh O Positive Antibody Screen NEGATIVE Crossmatch See Detail 06/23/24 10:58 Blood Culture - Pending Blood 06/23/24 10:58 Blood Culture - Pending Blood Intake and Output - 24 Hour Total 06/23/24 10:13 thru 06/23/24 14:16 Intake Total 2523.125 Balance 2523.125 Weight 66.224 kg Intake: IV 1773.125 Blood Product 500 Rbc Leuko Reduced Unit 500 [id number] Other 250 Rbc Leuko Reduced Unit 250 [id number] Falls Risk Assessment History of Falls No History 06/23/24 12:59 Contributing Factors Unstable,Impairments, 06/23/24 12:59 Incontinence Ambulatory Aids Uses ambulatory device + 06/23/24 12:59 Tubes/Lines With any additional score 06/23/24 12:59 Gait Evaluation W/any additional score 06/23/24 12:59 Fall Total Score 79 06/23/24 12:59 Level of Risk Maximum Risk 06/23/24 12:59 Problems (Last Reviewed 03/17/24 @ 09:39 by Russell Styles MD) 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 Information / Comments: Report received from: KALIE Crockett
[2024-06-23] MEDS: Norepinephrine in D5W 8 MG/250 ML BAG 18.75 MG IV (16:42)
[2024-06-23] MEDS: Acetaminophen 325 MG TAB PO (21:23)
[2024-06-24] VITALS (35 sets, daily range): BP systolic 97–126; BP diastolic 45–64; PULSE 63–97; RESP 11–27; O2SAT 96–98
[2024-06-24 05:55] LABS: HCT 26.1 % (36.0-46.0); HGB 8.5 g/dL (11.2-15.7); MCH 30.1 pg (27.0-33.0); MCHC 32.6 % (32.0-36.0); MCV 93 fL (80-95); Platelet Count 190 10^3/uL (130-400); RBC 2.82 10^6/uL (3.93-5.22); RDW 16.9 % (11.7-14.6); RDW-SD 56.1 fL; WBC 8.42 10^3/uL (4.4-10.8)
[2024-06-24 06:18] LABS: AST 15 U/L (15-37); Albumin 1.5 g/dL (3.4-5.0); Alkaline Phosphatase 121 U/L (46-116); Anion Gap 12.2 mmol/L (3-11); BUN 28 mg/dL (7-18); Bilirubin, Total 0.36 mg/dL (0.2-1.0); CO2 18.8 mmol/L (21.0-32.0); CREATININE 1.6 mg/dL (0.55-1.02); Calcium 7.7 mg/dL (8.5-10.1); Chloride 109 mmol/L (98-107); Estimated GFR 33.84 (mL/min/1.73m2); Glucose 75 mg/dL (74-106); Sodium 140 mmol/L (136-145); Total Protein 4.4 g/dL (6.4-8.2)
[2024-06-24 06:22] LABS: Potassium 2.5 mmol/L (3.5-5.1)
[2024-06-24 06:31] LABS: ALT 12 U/L (14-59)
[2024-06-24] MEDS: POTASSIUM CHLORIDE 20 MEQ/100 ML BAG 50 MEQ IVINF (06:40)
[2024-06-24] MEDS: Magnesium Oxide 400 MG TAB PO (08:33)
[2024-06-24] MEDS: Acetaminophen 325 MG TAB PO (08:33)
[2024-06-24] MEDS: Apixaban 5 MG TAB PO (08:33)
[2024-06-24] MEDS: Beta-Carotene(A) w/C,E, & Minerals TAB 1 TAB PO (08:33)
[2024-06-24] MEDS: Pantoprazole 40 MG TABCR PO (08:33)
--- NOTE | 2024-06-24 08:46 | W.PM.DS.N ---
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 -Hemoglobin was 7 in the emergency department patient was also hypotensive with mean arterial pressure less than 65 -Ordered for 2 units of packed red blood cells in the emergency department, will follow-up posttransfusion H&H -Given hypotension, started Levophed, will titrate for goal mean arterial pressure greater than 65 -levophed discontinued early AM 06/24 with MAP >70 -Hb stable AM 06/24 at 8.5 s/p transfusion (2) Anemia: Status: Chronic (3) Hypokalemia: Status: Acute Asessment and Plan: -K 2.5 AM 06/24 -patient states that this is an ongoing issue and her PCP has prescribed PO liq K for her -patient given 40mEq IV K prior to discharge (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 Patient's hemoglobin was 7 in the emergency department improved to 8.5 after 2 units of packed red blood cells. She briefly required Levophed as her mean arterial pressures were less than 65 however this was eventually weaned off as she received her blood transfusion with mean arterial pressures maintaining greater then 70. Additionally, she was found to be hypokalemic however patient states this has been a chronic issue and that her primary care provider has written prescription for liquid potassium. On the morning of 06/24/2024 she was given 40 mEq of IV potassium, but given that she has had significant improvement in her hemoglobin level, blood pressure, and states that she is felt better than she has over the last month it was determined that she was stable for discharge home. Home Meds and New Rx's Prescriptions: Continued metoprolol succinate 100 mg tablet extended release 24 hr 200 mg PO DAILY magnesium oxide 400 mg magnesium Tablet 400 mg PO BID Eye Multivit (lutein-zeaxan) 079-65-24-2-5 mg Capsule 1 cap PO BID Eliquis 5 mg Tablet 5 mg PO BID Qty: 60 0RF vitamin B complex Tablet 1 tab PO DAILY pantoprazole 40 mg tablet,delayed release (DR/EC) 40 mg PO DAILY fluorouracil IV Discontinued clopidogrel [Plavix] 75 mg Tablet 75 mg PO DAILY Patient Comments: 03/17/24: pt reports she does not take Discharge Instructions Referrals: None,None [ NON-[facility] STAFF PHYSICIAN] - (Please call PCP on wednesday to schedule follow-up appointment within 10 days of ICU discharge ) Activity:: Activity as Tolerated Equipment/Supplies:: No Equipment Needed Diet:: As Tolerated Discharge Orders Discharge Orders: Discharge Order (Routine); Ordered 06/24/24 Ordered By: Redd Logan Discharge Data Discharge Date/Time-TO BE ENTERED AT DEPARTURE: 06/24/24 12:50 DS: Summary Time Spent with Patient providing and/or coordinating discharge services: Greater than 30 minutes Status at Discharge Functional status at discharge: independent ambulation Overall status at discharge: patient is back to baseline Mental Status: mental status grossly normal Speech and Movement: speech and movement normal Mood: congruent mood Affect: normal affect Quality:SDOH Health Related Social Needs: No Data to Display Exam Narrative Exam Narrative: Well-appearing elderly female sitting up on the edge of the bed in no acute distress, notes that color is returning to her face compared to being pale prior to arrival, ANO x 4, heart regular rhythm, lungs clear to auscultation bilaterally, abdomen soft, nontender, nondistended Psych Mental Status: mental status grossly normal Speech and Movement: speech and movement normal Mood: congruent mood Affect: normal affect DS: Data Vitals/I&O Vitals and I&O: Vital Signs Temperature 98.4 F 06/23/24 16:45 Temperature Source Temporal Artery Scan 06/23/24 16:45 Pulse 84 06/24/24 08:00 Pulse 84 06/24/24 08:00 Respiratory Rate 20 06/24/24 08:00 Respiratory Effort Normal 06/23/24 16:45 Respiratory Depth Normal 06/23/24 16:45 Respiratory Pattern Normal 06/23/24 16:45 Blood Pressure 97/58 L 06/24/24 08:00 Blood Pressure Mean 71 06/24/24 08:00 Blood Pressure Position Supine 06/23/24 16:45 Pulse Oximetry 97 06/24/24 01:31 Oxygen Delivery Method Room Air 06/23/24 16:45 Oxygen Flow Rate 0 06/23/24 16:45 Pain Level 0 06/23/24 16:45 Intake & Output 06/23/24 06/24/24 06/24/24 17:59 05:59 17:59 Intake Total 2620.625 / 2620.625 79.813 / 2700.438 Output Total 500 / 500 175 / 175 Balance 2620.625 / 2620.625 -420.187 / 2200.438 -175 / -175 Weight 172 lb 13.478 oz Intake: IV 1870.625 / 1870.625 79.813 / 1950.438 Blood Product 500 / 500 Rbc Leuko Reduced Unit 500 / 500 [id number] Other 250 / 250 Rbc Leuko Reduced Unit 250 / 250 [id number] Output: Urine 500 / 500 175 / 175 Other: Urine Color Yellow Yellow Urine Appearance Clear Clear Urine Odor Strong Normal Stool Size Moderate Stool Characteristics Hard Brown Voiding Methods Bedside Commode Bedside Commode Data Completed and Pending Labs on day of discharge: Labs from last 24 hours 06/24/24 06/23/24 06/23/24 05:15 13:35 12:59 WBC 8.42 RBC 2.82 L Hgb 8.5 L Hct 26.1 L MCV 93 MCH 30.1 MCHC 32.6 RDW 16.9 H Plt Count 190 MPV 10.0 Immature Gran % Neutrophils % Band Neutrophils % Lymphocytes % Monocytes % Eosinophils % Basophils % Nucleated RBC % Absolute Neutrophils Absolute Lymphocytes Absolute Monocytes Absolute Eosinophils Absolute Basophils RBC Morphology Hypochromasia VBG Lactate Sodium 140 Potassium 2.5 L* Chloride 109 H Carbon Dioxide 18.8 L Anion Gap 12.2 H BUN 28 H Creatinine 1.6 H Est GFR (CKD-EPI 2020) 33.84 Glucose 75 Calcium 7.7 L Total Bilirubin 0.36 AST 15 ALT 12 L Alkaline Phosphatase 121 H Troponin I 22 Total Protein 4.4 L Albumin 1.5 L Urine Color Yellow Urine Clarity Clear Urine pH 5.5 Ur Specific Henderson 1.015 Urine Protein 100 H Urine Ketones Negative Urine Blood Negative Urine Nitrite Negative Urine Bilirubin Negative Urine Urobilinogen 0.2 Ur Leukocyte Esterase Negative Urine RBC 0-2 Urine WBC 0-2 Ur Epithelial Cells Rare Urine Crystals Negative Urine Bacteria Rare Urine Casts Urine Mucus Trace Ur Culture Indicated? No Urine Glucose Negative ABO/Rh Antibody Screen Crossmatch 06/23/24 06/23/24 06/23/24 12:08 10:51 10:35 WBC 7.28 RBC 2.38 L Hgb 7.0 L* Hct 22.9 L MCV 96 H MCH 29.4 MCHC 30.6 L RDW 19.2 H Plt Count 219 MPV 10.4 Immature Gran % See Differential Neutrophils % 53.0 Band Neutrophils % 7 Lymphocytes % 12.0 Monocytes % 25.0 Eosinophils % 2.0 Basophils % 1.0 Nucleated RBC % 0.0 Absolute Neutrophils 4.37 Absolute Lymphocytes 0.87 L Absolute Monocytes 1.82 H Absolute Eosinophils 0.15 Absolute Basophils 0.07 RBC Morphology See Below Hypochromasia 2+ VBG Lactate 1.8 H Sodium 136 Potassium 3.3 L Chloride 102 Carbon Dioxide 20.4 L Anion Gap 13.6 H BUN 34 H Creatinine 2.3 H Est GFR (CKD-EPI 2020) 21.90 Glucose 107 H Calcium 9.2 Total Bilirubin 0.32 AST 12 L ALT 14 Alkaline Phosphatase 139 H Troponin I 18 16 Total Protein 5.9 L Albumin 2.1 L Urine Color Urine Clarity Urine pH Ur Specific Henderson Urine Protein Urine Ketones Urine Blood Urine Nitrite Urine Bilirubin Urine Urobilinogen Ur Leukocyte Esterase Urine RBC Urine WBC Ur Epithelial Cells Urine Crystals Urine Bacteria Urine Casts Urine Mucus Ur Culture Indicated? 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) Hypovolemic shock (Acute) VAISHNAVI (acute kidney injury) (Acute) Hypotension (Acute) Mass of colon (Acute) Anemia (Chronic) Cardiomyopathy (Acute) Diabetes mellitus (Chronic) Coronary artery disease (Chronic) Liver cancer (Acute) Atrial fibrillation (Chronic) Pneumonia (Acute) Medical History Strangulated hernia of abdominal wall PAF (paroxysmal atrial fibrillation) Surgical History S/P small bowel resection S/P tubal ligation S/P APOLINAR-BSO History of cholecystectomy S/P aortic valve replacement (~03/2022) S/P CABG x 3 (~03/2022) Social History Smoking/Tobacco Use Status: Former Tobacco Use Quit Date: 10/04/10 Smoking risk assessment performed?: Yes Alcohol Intake: former Drug use: Never Substance use type: does not use Details: 03/16/24: took CBD gummies to help with sleep Housing: house Do you feel safe at home: Yes Do you feel safe in your relationship?: Yes Time Spent with Patient Time Spent with Patient: <45 minutes Time was spent: preparing to see the patient(eg.review tests), obtaining and/or reviewing separately otained hiistory, ordering medications,tests, procedures, referring, communicating with other health manager intensive care, indepentently interpreting results, counseling the patient and care coordination
[2024-06-24] MEDS: POTASSIUM CHLORIDE 10 MEQ/100 ML BAG 100 MEQ IVINF ×2 (08:54→09:55)
[2024-06-24] MEDS: Normal Saline Flush 10 ML SYR (12:42)
== END 2024-06-24 12:50 | disposition home or self-care (01) | DRG 872 ==
LOC: ER 10:29 → ICU 18:50
PROVIDERS: Admitting Provider Family Medicine; Emergency Provider Emergency Medicine; PCP Family Medicine; Visit Provider Family Medicine
DX: C22.1 Intrahepatic bile duct carcinoma (principal); R57.1 Hypovolemic shock; C78.4 Secondary malignant neoplasm of small intestine; N17.9 Acute kidney failure, unspecified; I42.9 Cardiomyopathy, unspecified; D63.0 Anemia in neoplastic disease; E87.6 Hypokalemia; E11.9 Type 2 diabetes mellitus without complications; I10 Essential (primary) hypertension; R53.1 Weakness; I25.10 Atherosclerotic heart disease of native coronary artery without angina pectoris; I48.0 Paroxysmal atrial fibrillation; Z79.01 Long term (current) use of anticoagulants
CPT/HCPCS: 00123; 36415; 36591; 80053; 85027; 86850; 86900; 86901; 86920; 87040; 93005; 96365; 96366; 96367; 96368; 99291; 71045; 74176; 81003; 81015; 83605; 84484; 85025; 86301; 93010; 99223; 99239; J0692; J3370; J3480; P9016

== ENCOUNTER 2024-06-30 01:35 | Outpatient (RCR) | payer MEDICARE, SELFPAY ==
[2024-06-04 00:11] VITALS: BP 104/45; PULSE 82; RESP 18; TEMP 35.9
[2024-06-09] MEDS: Normal Saline Flush 10 ML SYR IVP (09:11)
[2024-06-09 09:56] LABS: Abs Immature Grans 0.12 10^3/uL (0.0-0.06); Absolute Basophil Count 0.08 10^3/uL (0.0-0.2); Basophils % 0.4 %; Eosinophils % 0.7 %; HCT 27.5 % (36.0-46.0); HGB 8.7 g/dL (11.2-15.7); Immature Grans % 0.6 %; Lymphocytes % 7.5 %; MCH 30.3 pg (27.0-33.0); MCHC 31.6 % (32.0-36.0); MCV 96 fL (80-95); MPV 10.4 fL (8.0-11.0); Monocytes % 6.6 %; Neutrophils % 84.2 %; Platelet Count 275 10^3/uL (130-400); RBC 2.87 10^6/uL (3.93-5.22); RDW 18.6 % (11.7-14.6); RDW-SD 65.2 fL; WBC 19.82 10^3/uL (4.4-10.8)
[2024-06-09 09:58] LABS: Absolute Eosinophil Count 0.14 10^3/uL (0.0-0.7); Absolute Lymphocyte Count 1.49 10^3/uL (1.2-3.4); Absolute Monocyte Count 1.31 10^3/uL (0.1-0.8); Absolute Neutrophil Count 16.69 10^3/uL (1.2-6.7)
[2024-06-09 10:05] LABS: ALT 29 U/L (14-59); AST 49 U/L (15-37); Albumin 2.3 g/dL (3.4-5.0); Alkaline Phosphatase 130 U/L (46-116); Anion Gap 12.2 mmol/L (3-11); BUN 26 mg/dL (7-18); Bilirubin, Total 0.34 mg/dL (0.2-1.0); CO2 21.8 mmol/L (21.0-32.0); CREATININE 1.5 mg/dL (0.55-1.02); Calcium 8.6 mg/dL (8.5-10.1); Chloride 103 mmol/L (98-107); Estimated GFR 36.57 (mL/min/1.73m2); Glucose 144 mg/dL (74-106); Potassium 3.1 mmol/L (3.5-5.1); Sodium 137 mmol/L (136-145); Total Protein 6.2 g/dL (6.4-8.2)
[2024-06-09 22:13] LABS: CA 19-9 679 U/mL (<35)
[2024-06-23 09:07] LABS: Abs Immature Grans 0.12 10^3/uL (0.0-0.06); HCT 24.7 % (36.0-46.0); HGB 7.4 g/dL (11.2-15.7); MCH 29.5 pg (27.0-33.0); MCV 98 fL (80-95); MPV 10.6 fL (8.0-11.0); Platelet Count 286 10^3/uL (130-400); RBC 2.51 10^6/uL (3.93-5.22); RDW 19.4 % (11.7-14.6); RDW-SD 69.6 fL; WBC 8.46 10^3/uL (4.4-10.8)
[2024-06-23 09:11] VITALS: BP 104/45; PULSE 82; RESP 18; TEMP 35.9
[2024-06-23] MEDS: Normal Saline Flush 10 ML SYR IVP (09:12)
[2024-06-23 09:31] LABS: ALT 14 U/L (14-59); AST 13 U/L (15-37); Albumin 2.1 g/dL (3.4-5.0); Alkaline Phosphatase 139 U/L (46-116); Anion Gap 13.4 mmol/L (3-11); BUN 33 mg/dL (7-18); Bilirubin, Total 0.32 mg/dL (0.2-1.0); CO2 20.6 mmol/L (21.0-32.0); CREATININE 2.2 mg/dL (0.55-1.02); Calcium 9.1 mg/dL (8.5-10.1); Chloride 102 mmol/L (98-107); Estimated GFR 23.09 (mL/min/1.73m2); Glucose 190 mg/dL (74-106); Potassium 3.4 mmol/L (3.5-5.1); Sodium 136 mmol/L (136-145); Total Protein 5.9 g/dL (6.4-8.2)
[2024-06-23 09:34] LABS: Absolute Basophil Count 0.08 10^3/uL (0.0-0.2); Absolute Eosinophil Count 0.34 10^3/uL (0.0-0.7); Absolute Lymphocyte Count 1.27 10^3/uL (1.2-3.4); Absolute Monocyte Count 1.69 10^3/uL (0.1-0.8); Diff Comment Manual Differential
[2024-06-23 09:35] LABS: Hypochromasia 2+
[2024-06-23 09:55] LABS: Absolute Neutrophil Count 5.08 10^3/uL (1.2-6.7); Bands % 6 %
[2024-06-23 20:27] LABS: CA 19-9 652 U/mL (<35)
[2024-06-30 09:23] LABS: Abs Immature Grans 0.37 10^3/uL (0.0-0.06); Basophils % 0.5 %; Eosinophils % 1.1 %; HCT 34.6 % (36.0-46.0); HGB 10.7 g/dL (11.2-15.7); Lymphocytes % 7.1 %; MCH 30.1 pg (27.0-33.0); MCHC 30.9 % (32.0-36.0); MCV 97 fL (80-95); Neutrophils % 81.3 %; Platelet Count 245 10^3/uL (130-400); RBC 3.56 10^6/uL (3.93-5.22); RDW 18.4 % (11.7-14.6); WBC 18.32 10^3/uL (4.4-10.8)
[2024-06-30 09:24] LABS: Absolute Basophil Count 0.09 10^3/uL (0.0-0.2); Absolute Monocyte Count 1.47 10^3/uL (0.1-0.8); Absolute Neutrophil Count 14.89 10^3/uL (1.2-6.7)
[2024-06-30 09:46] LABS: ALT 17 U/L (14-59); AST 23 U/L (15-37); Albumin 2.2 g/dL (3.4-5.0); Alkaline Phosphatase 160 U/L (46-116); Anion Gap 8.7 mmol/L (3-11); BUN 23 mg/dL (7-18); Bilirubin, Total 0.35 mg/dL (0.2-1.0); CO2 22.3 mmol/L (21.0-32.0); CREATININE 1.5 mg/dL (0.55-1.02); Chloride 105 mmol/L (98-107); Estimated GFR 36.57 (mL/min/1.73m2); Glucose 113 mg/dL (74-106); Potassium 3.9 mmol/L (3.5-5.1); Sodium 136 mmol/L (136-145); Total Protein 6.1 g/dL (6.4-8.2)
[2024-06-30] MEDS: Normal Saline Flush 10 ML SYR IVP (09:55)
== END 2024-07-03 23:59 | disposition home or self-care (01) ==
LOC: INF 01:35
PROVIDERS: PCP Family Medicine; Visit Provider Nurse Practitioner Family
DX: C22.1 Intrahepatic bile duct carcinoma (principal)
CPT/HCPCS: 36591; 80053; 85025; 86301

== ENCOUNTER 2024-07-14 01:32 | Outpatient (RCR) | payer MEDICARE, SELFPAY ==
[2024-07-04 00:22] VITALS: BP 104/45; PULSE 82; RESP 18; TEMP 35.9
[2024-07-14] MEDS: Normal Saline Flush 10 ML SYR IVP (08:13)
[2024-07-14 08:30] LABS: HCT 31.9 % (36.0-46.0); HGB 9.9 g/dL (11.2-15.7); MCH 29.9 pg (27.0-33.0); MCV 96 fL (80-95); Platelet Count 292 10^3/uL (130-400); RBC 3.31 10^6/uL (3.93-5.22); RDW 18.8 % (11.7-14.6); RDW-SD 65.6 fL
[2024-07-14 08:43] LABS: Absolute Eosinophil Count 0.24 10^3/uL (0.0-0.7); Absolute Lymphocyte Count 1.66 10^3/uL (1.2-3.4); Absolute Monocyte Count 0.63 10^3/uL (0.1-0.8); Absolute Neutrophil Count 5.37 10^3/uL (1.2-6.7); Bands % 4 %
[2024-07-14 08:44] LABS: Diff Comment Manual Differential; RBC Morphology Normal
[2024-07-14 08:56] LABS: ALT 17 U/L (14-59); AST 18 U/L (15-37); Albumin 2.3 g/dL (3.4-5.0); Alkaline Phosphatase 155 U/L (46-116); Anion Gap 14.6 mmol/L (3-11); BUN 27 mg/dL (7-18); Bilirubin, Total 0.36 mg/dL (0.2-1.0); CO2 20.4 mmol/L (21.0-32.0); CREATININE 1.7 mg/dL (0.55-1.02); Calcium 8.9 mg/dL (8.5-10.1); Chloride 107 mmol/L (98-107); Estimated GFR 31.47 (mL/min/1.73m2); Glucose 119 mg/dL (74-106); Potassium 3.6 mmol/L (3.5-5.1); Sodium 142 mmol/L (136-145); Total Protein 6.1 g/dL (6.4-8.2)
[2024-07-14 22:07] LABS: CA 19-9 1508 U/mL (<35)
== END 2024-08-03 23:59 | disposition home or self-care (01) ==
LOC: INF 01:32
PROVIDERS: PCP Family Medicine; Visit Provider Nurse Practitioner Family
DX: C22.1 Intrahepatic bile duct carcinoma (principal); R19.7 Diarrhea, unspecified; Z45.2 Encounter for adjustment and management of vascular access device
CPT/HCPCS: 36591; 80053; 85025; 86301

== ENCOUNTER 2024-07-14 15:21 | Outpatient (REF) | payer MEDICARE, SELFPAY ==
[2024-07-14 17:41] LABS: C Diff PCR Negative (Negative)
== END 2024-07-14 15:22 | disposition home or self-care (01) ==
LOC: LBN 15:21
PROVIDERS: PCP Family Medicine; Visit Provider Internal Medicine Hematology & Oncology
DX: C22.1 Intrahepatic bile duct carcinoma (principal)
CPT/HCPCS: 87493